=== PATIENT | male | born 1945 | race Caucasian/White ===

== ENCOUNTER 2019-04-30 09:20 | Emergency (ER) | payer OTHER, MEDICARE, SELFPAY ==
[2019-04-30 09:21] VITALS: BP 161/93; PULSE 79; RESP 16; TEMP 36.6; BMI 22.4
--- NOTE | 2019-04-30 09:36 | ED.DCSUM_ITS ---
History of Present Illness Chief Complaint: Complaint Detail of Chief Complaint: Gross hematuria Informant: Patient, Significant Other Onset: Month(s) Context: Sudden Onset Timing: Intermittent Quality: Red blood Location: Current Severity: - - Unknown Maximum Severity: Severe Worsened by: History of enlarged prostate Relieved by: Nothing Associated Symptoms: No new symptoms Narrative: Patient is an elderly male who presents because of gross hematuria. He states he had more blood than normal. Has had intermittent gross hematuria. Last time he urinated initially it was straw-colored and then became bright red blood. He does have right lower quadrant pain which he has had since 2008. At that time he had resection of his colon. 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 He denies dark-colored urine. He denies discoloration of his skin or eyes. He denies bruising easily. He denies frequency or dysuria. He does report orthostatic symptoms. He states he is had orthostatic symptoms for 2 to 3 years. There is no history of trauma. 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 Denies: Chills, Fever, Malaise, Subjective, Weight loss Cardiovascular: Denies: Chest pain, Palpitations Respiratory: Denies: Dyspnea, Cough, Dyspnea on exertion Gastrointestinal: Reports: Abdominal pain. Denies: Nausea, Vomiting, Diarrhea, Melena, Hematochezia Genitourinary: Reports: Hematuria. Denies: Dysuria, Frequency Musculoskeletal: Denies: Myalgias, Arthralgias, Neck pain, Back pain, Swelling, Extremity Pain, -, - Neurological: Denies: Headache, Weakness, Numbness Psych: Reports: Depression Hematologic: Denies: Easy bruising, Easy bleeding Physical Exam Vital Signs/Narrative: Vital Signs Temp Pulse Resp BP 04/30/19 09:21 97.8 F 79 16 161/93 H Inital Vital Signs reviewed: Yes General: Well nourished, Well developed, No Acute Distress Head: Normocephalic, Atraumatic Eyes: Perrl, EOMI. Negative for: Pale conjunctiva, Scleral icterus ENT: Moist mucous membranes, No rhinorrhea Neck: Supple, Nontender, No lymphadenopathy, No JVD Cardiovascular: Regular rate, Regular rhythm, No murmurs, Normal S1, Normal S2 Respiratory: No distress, CTA bilaterally, Chest nontender Abdomen: Soft, Nondistended, Normal bowel sounds, Tender - This to the right of the midline 3 cm below the umbilicus. There is no palpable defect. There is a well-healed midline infraumbilical incision noted. Back: Nontender, Normal Inspection. Negative for: CVA tenderness Extremities: Nontender, No edema Skin: Normal color, No rash Neurological: Alert, Oriented x3, Cranial nerves II-XII grossly intact, Normal Strength, Normal Sensation Psychological: Normal affect, Normal Mood Diagnostic/Tx/Re-eval Laboratory Results 04/30/19 04/30/19 04/30/19 09:40 09:40 10:56 WBC 12.6 H RBC 4.53 L Hgb 14.2 Hct 42.1 MCV 92.9 MCH 31.3 MCHC 33.7 RDW Std Deviation 42.5 RDW Coeff of Gretel 12.3 Plt Count 187 MPV 9.4 Immature Gran % (Auto) 0.400 Neut % (Auto) 85.8 H Lymph % (Auto) 6.4 L [place] % (Auto) 6.3 Eos % (Auto) 0.9 Baso % (Auto) 0.2 Absolute Neuts (auto) 10.8 H Absolute Lymphs (auto) 0.81 L Nucleated RBC % 0 Sodium 142 Potassium 3.5 Chloride 108 H Carbon Dioxide 29.0 Anion Gap 5 BUN 19 H Creatinine 1.75 H Estim Creat Clear Calc 39.80 Est GFR (MDRD) Af Amer 49 L Est GFR (MDRD) Non-Af 41 L BUN/Creatinine Ratio 10.9 Glucose 105 Calcium 9.1 Total Bilirubin 0.70 AST 23 ALT 22 Alkaline Phosphatase 79 Total Protein 6.5 Albumin 3.7 Globulin 2.8 Albumin/Globulin Ratio 1.3 Urine Color Yellow Urine Clarity Clear Urine pH 6.0 Ur Specific [place] 1.015 Urine Protein Negative Urine Glucose (UA) Normal Urine Ketones Negative Urine Occult Blood 250 H Urine Nitrite Negative Urine Bilirubin Negative Urine Urobilinogen Normal Ur Leukocyte Esterase Negative Urine RBC 25-50 SEEN Urine WBC 0 SEEN Ur Squamous Epith Cells 0-5 SEEN Urine Bacteria 1+ Urine Mucus 0 SEEN White count is slightly elevated which is a nonspecific marker. Creatinine is 1.75. There are no old levels for comparison. Urine reveals microscopic hematuria. There is 1+ bacteria noted. Macro was negative for leukoesterase and nitrites. Will send culture. Will not treat. - Medical Decision Making UA was obtained to assess for evidence of infection. CBC was obtained to assess H&H and white count. Comprehensive metabolic panel was obtained since there is history of metastatic cancer to the liver to assess his liver enzymes and bilirubin. With history of short gut syndrome need to assess for hypokalemia. ED Disposition - Plan for ED Patient: Disposition: Home or Assisted Living Diagnosis: Hematuria, Renal insufficiency, Bacteria in urine Instructions: Hematuria, Renal Insufficiency Referrals: [facility] [Other] - 3-5 Days
[2019-04-30 09:51] LABS: Absolute Lymphocyte Count 0.81 X10^3/uL (0.83-4.51); Absolute Neutrophil Count 10.8 X10^3/uL (2.0-7.7); Basophil# 0.03 X10^3/uL; Basophil% 0.2 % (0-1); Eosinophil# 0.11 X10^3/uL; Eosinophils% 0.9 % (0-5); Hematocrit 42.1 % (40-54); Hemoglobin 14.2 g/dL (13.0-16.5); Lymphocyte # 0.81 X10^3/ul (4.0); Lymphocyte % 6.4 % (19-41); Mean Corp Hgb Conc 33.7 g/dL (32-36); Mean Corpuscular Hgb 31.3 pg (27.0-32.0); Mean Corpuscular Volume 92.9 fL (80-94); Mean Platelet Vol. 9.4 fl (6.2-12.0); Monocyte# 0.79 X10^3/uL; Monocyte% 6.3 % (0-10); NRBC Flagged by Analyzer 0 % (0-5); Neutrophil # 10.81 X10^3/uL (2.7-7.7); Neutrophil % 85.8 % (47-70); Platelet Count 187 K/mm3 (150-450); RBC Distribution Width CV 12.3 % (11.6-14.6); RBC Distribution Width SD 42.5 fl (35.1-43.9); Red Blood Count 4.53 M/mm3 (4.6-6.2); White Blood Count 12.6 K/mm3 (4.4-11.0)
[2019-04-30 10:04] LABS: ALB/GLOB Ratio 1.3 RATIO (0.9-2.4); AST(SGOT) 23 U/L (15-37); Alanine Aminotransfer ALT/SGPT 22 U/L (16-61); Albumin, Serum 3.7 g/dL (3.2-5.0); Alkaline Phosphatase 79 U/L (45-117); Anion Gap 5 (5-15); BUN 19 mg/dL (7-18); BUN/Creat Ratio 10.9 RATIO (10-20); Calcium,Total 9.1 mg/dL (8.5-10.1); Chloride 108 mmol/L (98-107); Creatinine, Serum 1.75 mg/dL (0.70-1.30); EST Glomerular Filtration Rate 41 mL/min (>60); Est Glom Filt Rate - Afr Amer 49 mL/min (>60); Globulin 2.8 g/dL (2.2-4.2); Glucose 105 mg/dL (74-106); Potassium 3.5 mmol/L (3.5-5.1); Protein, Total 6.5 g/dL (6.4-8.2); Sodium Level 142 mmol/L (136-145)
[2019-04-30 11:06] LABS: Mucous, Urine 0 SEEN /hpf (<or=2+); White Blood Cells 0 SEEN /hpf (0-5)
[2019-04-30 11:21] LABS: Color, Urine Yellow (Yellow); Glucose, Dipstick Normal (Normal); Ketone-Dipstick Negative (Negative); Leukocyte Esterase-Dipstick Negative /ul (Negative); Nitrite-Dipstick Negative (Negative); Occult Blood-Urine 250 /ul (Negative); Protein-Dipstick Negative (Negative); Specific Gravity, Urine 1.015 (1.002-1.030); Urine Bilirubin Dipstick Negative (Negative); Urine Clarity Clear (Clear); Urine Urobilinogen Normal (Normal)
[2019-04-30 11:27] LABS: Red Blood Cells-Urine 25-50 SEEN /hpf (0-5); Squamous Epithelial Cells - UA 0-5 SEEN /hpf (0-5)
[2019-04-30 11:28] LABS: Bacteria 1+ /hpf (None Seen)
[2019-04-30 12:04] VITALS: BP 171/83; PULSE 54
[2019-04-30 13:06] VITALS: BP 133/59; PULSE 62; RESP 15; O2SAT 97
== END 2019-04-30 13:07 | disposition home or self-care (01) ==
PROVIDERS: Emergency Provider Emergency Medicine
DX: R82.71 Bacteriuria (principal); R31.29 Other microscopic hematuria; N28.9 Disorder of kidney and ureter, unspecified; I10 Essential (primary) hypertension; F32.9 Major depressive disorder, single episode, unspecified; Z85.038 Personal history of other malignant neoplasm of large intestine; Z85.05 Personal history of malignant neoplasm of liver; Z90.49 Acquired absence of other specified parts of digestive tract; Z79.899 Other long term (current) drug therapy
CPT/HCPCS: 36592; 80053; 81001; 85025; 87086; 99282; A4216

== ENCOUNTER 2020-05-17 09:11 | Emergency (ER) | payer OTHER, SELFPAY ==
[2020-05-17 09:11] VITALS: BP 221/90; O2SAT 98
[2020-05-17 09:13] VITALS: PULSE 48; RESP 16; TEMP 35.7; O2SAT 99; BMI 22.6
--- NOTE | 2020-05-17 09:17 | ED.VIS.GEN ---
History of Present Illness Chief Complaint: Hypertension Informant: Patient Narrative: 75-year-old male presenting for evaluation of elevated blood pressure. He states it was 220/90 at home. He states he feels well and this was incidentally noted. He states that he gets [facility] and they have been changing his medications for hypertension, but he cannot remember the name of his medications. He did not present with a medicine list. Patient denies headache, dizziness, chest pain, shortness of breath. He states he has chronic diarrhea. He does have history of metastatic carcinoid tumor,, hypertension, depression, renal insufficiency. - Past Medical History (1) Abdominal carcinomatosis Status: Chronic (2) Benign essential HTN Status: Chronic (3) Carcinoid syndrome Status: Chronic (4) Depression Status: Chronic Past Medical History - Allergies and Home Meds Allergies/Adverse Reactions: Allergies amoxicillin Allergy (Verified 05/17/20 09:11) Rash codeine Adverse Reaction (Verified 05/17/20 09:11) Nausea Primary Care Physician: [facility] [Other] Prior records reviewed: Yes Surgical History: cholecystectomy Lives: Spouse/ Significant Other Smoking Status: Former smoker Alcohol: None Drugs: None Review of Systems General: Denies: Chills, Fever, Sweats Eyes: Denies: Visual changes - bilaterally, Diplopia ENT: Denies: Rhinorrhea, Sore throat Cardiovascular: Denies: Chest pain, Palpitations Respiratory: Denies: Dyspnea, Cough, Dyspnea on exertion Gastrointestinal: Denies: Abdominal pain, Nausea, Vomiting, Diarrhea, Melena, Hematochezia Genitourinary: Denies: Dysuria, Hematuria, Frequency Musculoskeletal: Denies: Back pain, Extremity Pain Skin: Denies: Rash, Wounds Neurological: Denies: Headache, Weakness, Numbness Psych: Denies: Depression, Anxiety, Suicidal thoughts, Suicidal ideations, -, - Endocrine: Denies: Polyuria, Polydipsia, Heat intolerance, Cold intolerance, -, - Physical Exam Vital Signs/Narrative: Vital Signs Temp Pulse Resp Pulse Ox 05/17/20 09:13 96.3 F L 48 L 16 99 Inital Vital Signs reviewed: Yes General: Well nourished, No Acute Distress Head: Normocephalic, Atraumatic Eyes: Perrl, EOMI ENT: Moist mucous membranes, No rhinorrhea Cardiovascular: Regular rate, Regular rhythm Abdomen: Soft, Nontender, Nondistended Extremities: Nontender, No edema Skin: Normal color, No rash. Negative for: Cyanosis, Diaphoresis Neurological: Alert, Oriented x3, Cranial nerves II-XII grossly intact Psychological: Normal affect, Normal Mood Diagnostic/Tx/Re-eval - Medical Decision Making 75-year-old male presenting with asymptomatic hypertension. He states that he had his medication changed but was unable to tell me his dosing or the medication. Nursing staff was able to get his medicine list from his and it looks like he is on lisinopril 40 mg daily. This is increased from his previous visit and April from 30 mg daily. Patient states he took his blood pressure medicine 30 minutes prior to arrival. Given that this is a 24 medicine I do not expect that it would have change his blood pressure in 30 minutes. Since he is asymptomatic I recommended that he call his primary care provider to have his medication adjusted as needed. He was amenable to this plan. Patient is stable for discharge at this time. Impression: 1.Hypertension?out of control ED Disposition - Plan for ED Patient: Disposition: Home or Assisted Living Instructions: ED Hypertension, Established Referrals: [facility] [Other]
[2020-05-17 10:07] VITALS: BP 191/101; PULSE 54; RESP 18; O2SAT 98
== END 2020-05-17 10:07 | disposition home or self-care (01) ==
LOC: ED 10:01
PROVIDERS: Emergency Provider Student in an Organized Health Care Education/Training Program
DX: I10 Essential (primary) hypertension (principal); F32.9 Major depressive disorder, single episode, unspecified; Z79.899 Other long term (current) drug therapy; Z87.891 Personal history of nicotine dependence
CPT/HCPCS: 99282

== ENCOUNTER 2020-05-20 20:35 | Emergency (ER) | payer OTHER, SELFPAY ==
[2020-05-20 20:39] VITALS: BP 110/70; PULSE 58; RESP 12; TEMP 35.9; O2SAT 98; BMI 23.8
--- NOTE | 2020-05-20 21:02 | EKG12_ITS ---
Test Reason : SYNCOPE Blood Pressure : / mmHG Vent. Rate : 055 BPM Atrial Rate : 055 BPM P-R Int : 200 ms QRS Dur : 102 ms QT Int : 424 ms P-R-T Axes : 004 -32 093 degrees QTc Int : 405 ms Sinus bradycardia Left axis deviation Nonspecific T wave abnormality Abnormal ECG Confirmed by RUSS PIMENTEL, BLANCA ([id number]), science editor KAYLA CULVER ([id number]) on 05/25/2020 6:44:18 AM Referred By: JORGE Confirmed By:BLANCA SOLANO MD
[2020-05-20 21:14] LABS: Absolute Lymphocyte Count 0.93 X10^3/uL (0.83-4.51); Absolute Neutrophil Count 5.8 X10^3/uL (2.0-7.7); Basophil# 0.04 X10^3/uL; Basophil% 0.6 % (0-1); Eosinophil# 0.11 X10^3/uL; Eosinophils% 1.5 % (0-5); Hematocrit 40.9 % (40-54); Hemoglobin 13.5 g/dL (13.0-16.5); Lymphocyte # 0.93 X10^3/ul (4.0); Lymphocyte % 12.9 % (19-41); Mean Corpuscular Hgb 31.4 pg (27.0-32.0); Mean Corpuscular Volume 95.1 fL (80-94); Monocyte% 4.2 % (0-10); NRBC Flagged by Analyzer 0 % (0-5); Neutrophil # 5.79 X10^3/uL (2.7-7.7); Neutrophil % 80.4 % (47-70); Platelet Count 174 K/mm3 (150-450); RBC Distribution Width CV 12.8 % (11.6-14.6); RBC Distribution Width SD 44.6 fl (35.1-43.9); White Blood Count 7.2 K/mm3 (4.4-11.0)
--- NOTE | 2020-05-20 21:17 | ED.DCSUM_ITS ---
History of Present Illness Chief Complaint: Syncope Informant: Patient Narrative: Patient is a 75-year-old male with a past medical history of metastatic carcinoid tumors, hypertension who presents to emergency department for low blood pressure readings. He states that he is felt lightheaded all day. His initial blood pressure was over 220 last night. He states his blood pressure typically fluctuates. He does check this multiple times per day regularly. He noticed that it was dropping into the low 100s. He states while sitting he does not have any symptoms but whenever he gets up and moves around he does get lightheaded like he could pass out. Apparently patient had an unresponsive episode for EMS. Patient denies any syncopal episodes. He has no associated chest pain, shortness of breath or heart palpitations through any of this. He was seen in the emergency department for hypertension recently. He did have a medication adjustment with increase in his blood pressure medications although he is not sure what they changed. He denies any leg swelling or calf pain. No history of heart attacks. No lung issues. No history of DVT/PE. He states he does get normal saline infusions 3 times per week due to dehydration. He has been getting this regularly. He denies any vomiting or diarrhea. No urinary symptoms. No abdominal pain. Past Medical History - Allergies and Home Meds Allergies/Adverse Reactions: Allergies amoxicillin Allergy (Verified 05/20/20 20:35) Rash codeine Adverse Reaction (Verified 05/20/20 20:35) Nausea Primary Care Physician: [place] [Primary Care Provider] - 1 Day Prior records reviewed: Yes Surgical History: cholecystectomy Smoking Status: Current some day smoker Review of Systems All systems negative except as indicated General: Denies: Chills, Fever, Sweats Eyes: Denies: Visual changes - bilaterally, Diplopia ENT: Denies: Rhinorrhea, Sore throat Cardiovascular: Denies: Chest pain, Palpitations Respiratory: Denies: Dyspnea, Cough, Dyspnea on exertion Gastrointestinal: Denies: Abdominal pain, Nausea, Vomiting, Diarrhea, Melena, Hematochezia Genitourinary: Denies: Dysuria, Hematuria, Frequency Musculoskeletal: Denies: Back pain, Extremity Pain Skin: Denies: Rash, Wounds Neurological: Reports: - - Lightheadedness. Denies: Headache, Weakness, Numbness Physical Exam Vital Signs/Narrative: Vital Signs Temp Pulse Resp BP Pulse Ox 05/20/20 20:39 96.7 F L 58 L 12 110/70 98 General: Well nourished, Well developed, No Acute Distress Head: Normocephalic, Atraumatic Eyes: Perrl, EOMI ENT: Moist mucous membranes, No rhinorrhea Neck: Supple, Nontender Cardiovascular: Regular rate, Regular rhythm, No murmurs Respiratory: No distress, CTA bilaterally, Chest nontender Abdomen: Soft, Nontender, Nondistended, Normal bowel sounds Back: Nontender, Normal Inspection Extremities: Nontender, No edema Skin: Normal color, No rash Neurological: Alert, Oriented x3, Cranial nerves II-XII grossly intact, Normal Strength, Normal Sensation Psychological: Normal affect, Normal Mood Diagnostic/Tx/Re-eval Chest X-Ray - ED: 1 View - Single view portable chest x-ray interpreted by myself. No evidence of consolidation. No pleural effusions. Calcified nodule in the right lower lobe. Normal cardiac silhouette. Normal mediastinum. Agree with radiologist interpretation. - EKG Initial EKG Interpretation: - - Rate of 55 bpm in sinus bradycardia. Normal intervals. Left axis deviation. No significant ST elevations or depressions. No T wave abnormalities. - Medical Decision Making Patient presents to the emergency department for low blood pressure readings and lightheadedness. Upon arrival to the emergency department his blood pressure is 110/70. He is borderline bradycardic but satting well on room air. While laying in the bed he has no symptoms whatsoever. Will check basic lab work including EKG and chest x-ray. Will do orthostatic vital signs start some IV fluids. His symptoms sound related to his recent blood pressure medication adjustment. Patient did get IV fluids after his orthostatic vital signs were positive. He was very symptomatic initially. After the bolus of liter of saline completed he did ambulate around the emergency department no repeat symptoms and is feeling much better. Patient now telling me that he did actually pass out. I did offer him hospitalization given the fact he had a syncopal episode which does correlate with the EMS story. He states that he does not want to stay in the hospital due to coronavirus at this time. Since this is most likely secondary to medications I believe that this is an acceptable plan. Low concern for ACS as his troponin was negative. No concern for acute heart failure with the clear chest x-ray and no peripheral edema. Low concern for PE as he has no risk factors for this. He is to call his PCP in the morning and not to take his new medications which were prescribed for his blood pressure. He is agreeable with this plan. If he develops any repeat symptoms he is to return to the emergency department immediately. He is discharged home in stable condition. All questions were answered. ED Disposition - Plan for ED Patient: Disposition: Home or Assisted Living Diagnosis: Orthostatic hypotension Instructions: ED Hypotension, Orthostatic [facility]errals: [facility] [Primary Care Provider[facility] - 1 Day
[2020-05-20 21:20] VITALS: BP 107/64; BP 78/49; BP 91/54; PULSE 59; PULSE 63; PULSE 86
[2020-05-20] MEDS: 0.9% Normal Saline 1,000 ML 999 ML IV (21:26)
[2020-05-20 21:36] LABS: Anion Gap 5 (5-15); BUN 22 mg/dL (7-18); BUN/Creat Ratio 11.7 RATIO (10-20); Calcium,Total 8.8 mg/dL (8.5-10.1); Chloride 111 mmol/L (98-107); Creatinine, Serum 1.88 mg/dL (0.70-1.30); EST Glomerular Filtration Rate 37 mL/min (>60); Est Glom Filt Rate - Afr Amer 45 mL/min (>60); Estimated Creatinine Clearance 37.26 ml/min; Glucose 187 mg/dL (74-106); Potassium 3.6 mmol/L (3.5-5.1); Sodium Level 145 mmol/L (136-145)
--- NOTE | 2020-05-20 21:49 | RAD_ITS ---
STUDY: X-RAY CHEST REASON FOR EXAM: Male, 75 years old. syncope, hypotension at home. TECHNIQUE: AP portable COMPARISON: None. FINDINGS: The lungs are clear and expanded. There is a small calcified granuloma in the right lower lobe There is no demonstrated pleural abnormality. Normal size heart. Normal mediastinum and tracey. Normal visualized pulmonary arteries. Normal visualized aortic arch and descending thoracic aorta. Dorsal spine and shoulders demonstrate mild degenerative change.. Normal visualized ribs, and clavicles.. There is no demonstrated abnormality of the visualized soft tissue structures of the upper abdomen. RAD/Chest 1 View (Portable) IMPRESSION: Calcified granuloma in right lower lobe. No acute cardiopulmonary pathology Electronically Signed: Harjinder Mathew MD at 22:00 EST , Service support ,
[2020-05-20 22:21] VITALS: BP 122/65; PULSE 61; RESP 14; O2SAT 93
[2020-05-20 23:00] VITALS: BP 144/78; PULSE 60; RESP 13; O2SAT 98
[2020-05-21 00:06] VITALS: BP 141/73; PULSE 78; RESP 18; O2SAT 96
== END 2020-05-21 00:40 | disposition home or self-care (01) ==
PROVIDERS: Emergency Provider Emergency Medicine
DX: I95.1 Orthostatic hypotension (principal); I10 Essential (primary) hypertension; F17.200 Nicotine dependence, unspecified, uncomplicated
CPT/HCPCS: 71045; 80048; 84484; 85025; 93005; 96360; 96361; 99284; J7030

== ENCOUNTER 2020-09-18 10:53 | Inpatient (IN) | payer OTHER, MEDICARE, SELFPAY ==
[2020-09-18] VITALS (13 sets, daily range): BP systolic 100–150; BP diastolic 60–98; PULSE 42–121; RESP 13–28; TEMP 36.2–36.9; O2SAT 86–100; BMI 23.9; BMI 20.9
--- NOTE | 2020-09-18 11:08 | EKG12_ITS ---
Test Reason : SOB Blood Pressure : / mmHG Vent. Rate : 051 BPM Atrial Rate : 051 BPM P-R Int : 190 ms QRS Dur : 102 ms QT Int : 456 ms P-R-T Axes : 014 -33 073 degrees QTc Int : 420 ms Sinus bradycardia Left axis deviation Abnormal ECG Confirmed by RUSS PIMENTEL, BLANCA ([id number]), editorial director DEANNA TESFAYE ([id number]) on 09/20/2020 9:13:55 AM Referred By: SHAWNA Confirmed By:BLANCA SOLANO MD
--- NOTE | 2020-09-18 11:10 | EDS_ITS ---
HPI History of Present Illness Chief Complaint: Confusion Informant: patient Onset/Context/Timing Onset: Days Timing: Continuous Current Severity: Mild Maximum Severity: Mild Narrative Narrative: lives at home with his . hospitalized earlier today with COVID-19.75-year-old male Reportedly he was hypoxic at home and confused. He d enies any headache or head trauma. He states that he has a history of stage IV cancer. He denies any vomiting or diarrhea. States he has had fever, cough and shortness of breath the last 3 days. Denies any hemoptysis. Prior similar symptoms: No Recent Illness/Hospitalization: No PFSH PFSH Home Medications Atropine Sulfate 0.025 mg PO 4X/DAY 04/30/19 [History Last Taken Unknown] Sandostatin 30 mg IM QMONTH 04/30/19 [History Last Taken Unknown] cholecalciferol (vitamin D3) 3 tab PO DAILY 04/30/19 [History Last Taken Unknown] diphenoxylate-atropine 2.5 mg PO 4X/DAY 04/30/19 [History Last Taken Unknown] fluoxetine 40 mg PO DAILY 04/30/19 [History Last Taken Unknown] lisinopril 40 mg PO DAILY 04/30/19 [History Last Taken Unknown] oxycodone 3 tab PO PRN PRN 04/30/19 [History Last Taken Unknown] oxycodone 20 mg PO BID 04/30/19 [History Last Taken Unknown] doxazosin 4 mg PO DAILY 05/17/20 [History Last Taken 05/17/20] loperamide 4 mg PO BID 05/17/20 [History Last Taken Unknown] Allergy/AdvReac Type Severity Reaction Status Date / Time amoxicillin Allergy Rash Verified 05/20/20 20:35 codeine AdvReac Nausea Verified 05/20/20 20:35 Social History Smoking Status: Current some day smoker ROS ROS ED ROS Narrative Cough shortness of breath and subjective fever. Review of Systems ROS Unobtainable: Denies due to encephalopathy Constitutional Constitutional ED: Reports fever(s); Denies sweats Eyes Eyes: Denies change in vision ENT ENT ED: Denies ear pain or sore throat Cardiovascular Cardiovascular: Denies chest pain Respiratory/Chest Respiratory/Chest: Reports cough and dyspnea; Denies sputum Gastrointestinal Gastrointestinal: Denies abdominal pain, constipation, diarrhea, melena, nausea or vomiting Genitourinary Genitourinary ED: Denies dysuria Musculoskeletal Musculoskeletal: Denies myalgias Integumentary Denies rash Neurologic Neurologic: Denies headache(s) Psychiatric Psychiatric: Denies depression Endocrine Endocrinology: Denies polyuria Allergic/Immunologic Allergic/Immunologic ED: Denies urticaria EXAM Physical Exam Narrative Exam Narrative: Older male no acute distress vital signs stable except for a pulse ox of 86% obviously hypoxic. Is mildly confused. He does not look septic. HEENT exam dry mucous memories. No facial droop or trauma. Lungs clear to auscultation. Heart regular rhythm. Abdomen soft nontender. Moving all 4 extremities. Normal motor strength. Neurologically is awake. He knew the day was Saturday he did not know the he thought it was January he did know the year was 2020. He knew he was in the hospital. Const Vital Signs: 09/18/20 10:53 09/18/20 11:01 Temperature 97.9 F 97.9 F Temperature Source Temporal Temporal Pulse Rate 54 L 54 L Respiratory Rate 28 H 28 H Blood Pressure 112/69 115/65 Blood Pressure Mean 83 81 Pulse Ox 86 91 Oxygen Delivery Method Room Air Nasal Cannula Oxygen Flow Rate (L/min) 2 Positive well nourished and well developed General Appearance ED: well developed HEENT Reports dry mucous membranes Negative for trauma or tenderness Mouth ED: Yes dry mucous membranes Mouth: dry mucous membranes Eyes PERRL and EOMs intact bilaterally Neck no lymphadenopathy, supple and no JVD General: Negative for tenderness Chest Wall inspection of chest normal Resp normal respiratory effort and clear to auscultation bilaterally Cardio regular rate and regular rhythm GI normal to inspection, nondistended, normoactive bowel sounds, non-tender and non-distended Auscultation: normoactive bowel sounds Palpation: soft Back/Spine no CVA tenderness Extremity normal to inspection General Extremety ED: Negative for edema or tenderness General Extremity: Negative for edema Neuro Neuro Narrative: New day, year and place but not month. Sensorium / Orientation: alert Motor Exam: strength 5/5 throughout Psych mental status grossly normal Skin no rashes or lesions noted MDM MDM MDM Narrative Medical decision making narrative: Elderly male hypoxic with a Covid positive admitted earlier today. I suspect he will also be Covid positive. Will undergo screening labs and a chest x-ray. Lab Data Attestation: I reviewed the patient's lab results. Lab results narrative: Patient's labs CBC shows a white count of 4 hemoglobin of 12 based unremarkable D-dimer is elevated 0.88 however his renal function is too poor with a creatinine of 2.65 to do a CTA of the chest. Electrolytes basically otherwise are unremarkable gap of 6. He does have renal sufficiency with a BUN of 42 and creatinine 2.65. That is worse than his normal. LFTs are unremarkable. Chest x-ray chronic changes no acute process portable 1 view interpreted by myself and radiologist. No infiltrate seen. Lactic acid 1.0. Covid is positive. Hospitalist on page for admission. Labs: Laboratory Results - last 24 hr 09/18/20 09/18/20 09/18/20 11:35 11:35 11:35 WBC 4.9 RBC 4.04 L Hgb 12.5 L Hct 37.0 L MCV 91.6 MCH 30.9 MCHC 33.8 RDW Std Deviation 45.9 H RDW Coeff of Gretel 13.4 Plt Count 94 L MPV 11.3 Immature Gran % (Auto) 0.400 Neut % (Auto) 84.3 H Lymph % (Auto) 9.2 L [place] % (Auto) 6.1 Eos % (Auto) 0.0 Baso % (Auto) 0.0 Absolute Neuts (auto) 4.1 Absolute Lymphs (auto) 0.45 L Nucleated RBC % 0 Platelet Estimate SLT DEC D-Dimer Quant (PE/DVT) 0.88 H* Sodium 136 Potassium 3.6 Chloride 100 Carbon Dioxide 30.0 Anion Gap 6 BUN 42 H Creatinine 2.65 H Estim Creat Clear Calc 24.09 Est GFR (MDRD) Af Amer 30 L Est GFR (MDRD) Non-Af 25 L BUN/Creatinine Ratio 15.8 Glucose 97 Lactic Acid Calcium 8.3 L Total Bilirubin 0.60 AST 44 H ALT 26 Alkaline Phosphatase 50 Total Protein 6.1 L Albumin 3.4 Globulin 2.7 Albumin/Globulin Ratio 1.3 09/18/20 11:35 WBC RBC Hgb Hct MCV MCH MCHC RDW Std Deviation RDW Coeff of Gretel Plt Count MPV Immature Gran % (Auto) Neut % (Auto) Lymph % (Auto) [place] % (Auto) Eos % (Auto) Baso % (Auto) Absolute Neuts (auto) Absolute Lymphs (auto) Nucleated RBC % Platelet Estimate D-Dimer Quant (PE/DVT) Sodium Potassium Chloride Carbon Dioxide Anion Gap BUN Creatinine Estim Creat Clear Calc Est GFR (MDRD) Af Amer Est GFR (MDRD) Non-Af BUN/Creatinine Ratio Glucose Lactic Acid 1.0 Calcium Total Bilirubin AST ALT Alkaline Phosphatase Total Protein Albumin Globulin Albumin/Globulin Ratio Radiography Chest X-Ray - ED: 1 View, Read by ED Physician, Read by Radiologist, Normal, Heart, Lungs, Mediastinum, Bony Structures, No Acute Disease and Chronic Changes Diagnostic Testing: Radiology Impression Chest X-Ray 09/18/20 12:00 IMPRESSION: No acute pulmonary abnormality. Left-sided PICC line in good position. at 1225 Reported and signed by: Pillo Porter MD Electronically Signed: Pillo Porter MD at 12:24 EDT Tel , Service support , EKG Initial EKG: Attestation: I personally reviewed and interpreted this EKG as follows: Interpretation: Sinus Rhythm, No Acute Injury Pattern and Sinus Bradycardia Comments: Sinus bradycardia rate of 51 with no acute signs of GA nor ischemia. Prior EKG tracings: available for review Prior: Unchanged Discharge Plan Dx/Rx/DC Orders Clinical Impression: Acute COVID-19, Acute respiratory failure with hypoxia, Acute alteration in mental status, Acute kidney injury Disposition Disposition: Acute Care [facility]
[2020-09-18 11:54] LABS: Absolute Lymphocyte Count 0.45 X10^3/uL (0.83-4.51); Absolute Neutrophil Count 4.1 X10^3/uL (2.0-7.7); Hemoglobin 12.5 g/dL (13.0-16.5); Lymphocyte # 0.45 X10^3/ul (0.83-4.51); Lymphocyte % 9.2 % (19-41); Mean Corp Hgb Conc 33.8 g/dL (32-36); Mean Corpuscular Hgb 30.9 pg (27.0-32.0); Mean Corpuscular Volume 91.6 fL (80-94); Mean Platelet Vol. 11.3 fl (6.2-12.0); Monocyte% 6.1 % (0-10); NRBC Flagged by Analyzer 0 % (0-5); Neutrophil # 4.14 X10^3/uL (2.7-7.7); Neutrophil % 84.3 % (47-70); POSITIVE COUNT YES; POSITIVE DIFFERENTIAL YES; Platelet Count 94 K/mm3 (150-450); RBC Distribution Width CV 13.4 % (11.6-14.6); RBC Distribution Width SD 45.9 fl (35.1-43.9); Red Blood Count 4.04 M/mm3 (4.6-6.2); White Blood Count 4.9 K/mm3 (4.4-11.0)
[2020-09-18 11:56] LABS: Differential Indicated SCAN CRITERIA MET
--- NOTE | 2020-09-18 12:00 | RAD_ITS ---
EXAM: XR CHEST, 1 VIEW : 1945 CLINICAL INDICATION: cough, covid positive TECHNIQUE: Frontal view of the chest. This report was created using [email or web address] report generation technology. COMPARISON: 05/20/2020 FINDINGS: LUNGS AND PLEURAL SPACES: Unremarkable. No consolidation or edema. No pneumothorax. No effusion. HEART: Unremarkable. Cardiac silhouette not enlarged. MEDIASTINUM: Central airways and mediastinal contour are unremarkable. BONES/JOINTS: Unremarkable. SOFT TISSUES: Unremarkable. TUBES, LINES AND DEVICES: Left-sided PICC line is in place with the distal tip overlying the superior vena cava. RAD/Chest 1 View (Portable) IMPRESSION: No acute pulmonary abnormality. Left-sided PICC line in good position. at 1225 Reported and signed by: Pillo Porter MD Electronically Signed: Pillo Porter MD at 12:24 EDT Tel , Service support ,
[2020-09-18 12:14] LABS: D-Dimer Quantitative (DVT/PE) 0.88 FEU/ug/m (0.27-0.49)
[2020-09-18 12:17] LABS: Platelet Estimate SLT DEC (ADEQ)
[2020-09-18 12:19] LABS: ALB/GLOB Ratio 1.3 RATIO (0.9-2.4); AST(SGOT) 44 U/L (15-37); Alanine Aminotransfer ALT/SGPT 26 U/L (16-61); Albumin, Serum 3.4 g/dL (3.2-5.0); Alkaline Phosphatase 50 U/L (45-117); Anion Gap 6 (5-15); BUN 42 mg/dL (7-18); BUN/Creat Ratio 15.8 RATIO (10-20); Calcium,Total 8.3 mg/dL (8.5-10.1); Chloride 100 mmol/L (98-107); Creatinine, Serum 2.65 mg/dL (0.70-1.30); EST Glomerular Filtration Rate 25 mL/min (>60); Est Glom Filt Rate - Afr Amer 30 mL/min (>60); Estimated Creatinine Clearance 24.09 ml/min; Globulin 2.7 g/dL (2.2-4.2); Glucose 97 mg/dL (74-106); Potassium 3.6 mmol/L (3.5-5.1); Protein, Total 6.1 g/dL (6.4-8.2); Sodium Level 136 mmol/L (136-145)
--- NOTE | 2020-09-18 13:03 | NURSING ---
Addendum entered by Clara Rapp 09/18/20 13:04: DR KELLY Original Note: ICU COVID, HYPOXIA, CONFUSION
[2020-09-18] MEDS: 0.9% Normal Saline 1,000 ML 125 ML IV (13:09)
[2020-09-18] MEDS: dexAMETHasone 10 MG/ML Vial IV (13:09)
[2020-09-18 17:06] LABS: Magnesium 2.2 mg/dL (1.6-2.6)
--- NOTE | 2020-09-18 17:57 | PCM.HP.STD ---
HPI - General General Date of Admission: 09/18/20 Chief Complaint: Confusion, shortness of breath HPI Narrative ITZEL MORA, is a 75 M who presents confusion and shortness of breath. Patient started having symptoms of COVID-19 around September 07 with fever, chills, shortness of breath. His is also sick with COVID-19. He drove his to the hospital this morning. He did not want to be evaluated in the hospital. He drove himself back. He was confused and hypoxic. His oxygen saturation was around the 80s. He admits to feeling dizzy. When the EMS got there, he was saturating around 90% on 15 L of oxygen. He was managed in route with the nonrebreather mask. Patient admits to diarrhea but he has short bowel syndrome. He states that it started today. Denies any chest pain or palpitations. [facility] Medical History Cancer Former smoker Hypertension Stroke/cerebrovascular accident Home Medications Atropine Sulfate 0.025 mg PO 4X/DAY 04/30/19 [History Last Taken Unknown] Sandostatin 30 mg IM QMONTH 04/30/19 [History Last Taken Unknown] cholecalciferol (vitamin D3) 3 tab PO DAILY 04/30/19 [History Last Taken Unknown] diphenoxylate-atropine 2.5 mg PO 4X/DAY 04/30/19 [History Last Taken Unknown] fluoxetine 40 mg PO DAILY 04/30/19 [History Last Taken Unknown] lisinopril 40 mg PO DAILY 04/30/19 [History Last Taken Unknown] oxycodone 3 tab PO PRN PRN 04/30/19 [History Last Taken Unknown] oxycodone 20 mg PO BID 04/30/19 [History Last Taken Unknown] doxazosin 4 mg PO DAILY 05/17/20 [History Last Taken 05/17/20] loperamide 4 mg PO BID 05/17/20 [History Last Taken Unknown] Allergy/AdvReac Type Severity Reaction Status Date / Time amoxicillin Allergy Rash Verified 05/20/20 20:35 codeine AdvReac Nausea Verified 05/20/20 20:35 no significant family history Surgical History (Updated 09/18/20 @ 18:[address] Deanne Dialy MD) History of appendectomy History of cholecystectomy S/P colectomy Social History Smoking Status: Current some day smoker ROS ROS Narrative Constitutional: Reports: Malaise, Weakness, Fatigue. Denies: Anorexia, Chills, Fever, Night Sweats, Weight Change Eyes: Denies: Blurred vision, Cataracts, Conjunctivae Inflammation, Pain, Redness, Vision Change HEENT: Denies: Difficulty Hearing, Difficulty Swallowing, Head Aches, Hearing Changes, Sinus Congestion, Sinus Drainage Cardiovascular: Admits to dizziness denies: Chest Pain, Orthopnea, Palpitations Respiratory: Denies: Cough, Shortness of breath at rest, Sputum production Gastrointestinal: Denies: Abdominal Pain, Nausea, Vomiting Genitourinary: Denies: Dysuria Musculoskeletal: Denies: Joint Pain, Joint stiffness, Joint swelling, Joint Tenderness Skin: Denies: Rash, Wounds Neurological: Denies: Numbness, Tingling, Focal weakness Vital Signs Vital Signs Vital Signs: 09/18/20 10:53 09/18/20 11:01 09/18/20 11:30 Temperature 97.9 F 97.9 F Temperature Source Temporal Temporal Pulse Rate 54 L 54 L 121 H Respiratory Rate 28 H 28 H 23 H Blood Pressure 112/69 115/65 120/96 H Blood Pressure Mean 83 81 104 Blood Pressure Source Blood Pressure Position Blood Pressure Location Pulse Ox 86 91 96 Oxygen Delivery Method Room Air Nasal Cannula Nasal Cannula Oxygen Flow Rate (L/min) 2 2 09/18/20 12:00 09/18/20 12:30 09/18/20 12:49 Temperature 98.4 F Temperature Source Oral Pulse Rate 118 H 114 H 51 L Respiratory Rate 21 H 17 14 Blood Pressure 127/98 H 150/94 H 100/60 Blood Pressure Mean 107 112 73 Blood Pressure Source Blood Pressure Position Blood Pressure Location Pulse Ox 95 95 97 Oxygen Delivery Method Nasal Cannula Nasal Cannula Room Air Oxygen Flow Rate (L/min) 2 2 09/18/20 12:58 09/18/20 13:00 09/18/20 13:51 Temperature 98.1 F 98.1 F Temperature Source Temporal Temporal Pulse Rate 49 L 62 Respiratory Rate 13 16 Blood Pressure 132/96 H 129/61 H Blood Pressure Mean 108 83 Blood Pressure Source Monitor Blood Pressure Position Semi-Fowlers Blood Pressure Location Right Arm Pulse Ox 97 96 99 Oxygen Delivery Method Nasal Cannula Nasal Cannula Room Air Oxygen Flow Rate (L/min) 2 2 09/18/20 14:08 Temperature Temperature Source Pulse Rate 51 L Respiratory Rate Blood Pressure Blood Pressure Mean Blood Pressure Source Blood Pressure Position Blood Pressure Location Pulse Ox Oxygen Delivery Method Oxygen Flow Rate (L/min) Physical Exam Narrative Physical exam: General: Alert, Oriented x3, Cooperative, appears unwell, on 2 L oxygen, Well developed HEENT: Atraumatic Oral: Dry mucosa Neck: Supple Lungs: Clear to auscultation Cardiovascular: HS I+II, regular, no murmurs Abdomen: Bowel Sounds Present, Soft, Non Tender Extremities: No edema Skin: No rashes, No breakdown Neurological: Grossly intact Psych/Mental Status: Appropriate Lab / Micro Data Result Diagrams: 09/18/20 11:35 09/18/20 11:35 Labs: Laboratory Results - last 24 hr 09/18/20 09/18/20 09/18/20 11:35 11:35 11:35 WBC 4.9 RBC 4.04 L Hgb 12.5 L Hct 37.0 L MCV 91.6 MCH 30.9 MCHC 33.8 RDW Std Deviation 45.9 H RDW Coeff of Gretel 13.4 Plt Count 94 L MPV 11.3 Immature Gran % (Auto) 0.400 Neut % (Auto) 84.3 H Lymph % (Auto) 9.2 L [place] % (Auto) 6.1 Eos % (Auto) 0.0 Baso % (Auto) 0.0 Absolute Neuts (auto) 4.1 Absolute Lymphs (auto) 0.45 L Nucleated RBC % 0 Platelet Estimate SLT DEC D-Dimer Quant (PE/DVT) 0.88 H* Sodium 136 Potassium 3.6 Chloride 100 Carbon Dioxide 30.0 Anion Gap 6 BUN 42 H Creatinine 2.65 H Estim Creat Clear Calc 24.09 Est GFR (MDRD) Af Amer 30 L Est GFR (MDRD) Non-Af 25 L BUN/Creatinine Ratio 15.8 Glucose 97 Lactic Acid Calcium 8.3 L Magnesium Total Bilirubin 0.60 AST 44 H ALT 26 Alkaline Phosphatase 50 Total Protein 6.1 L Albumin 3.4 Globulin 2.7 Albumin/Globulin Ratio 1.3 09/18/20 09/18/20 11:35 11:43 WBC RBC Hgb Hct MCV MCH MCHC RDW Std Deviation RDW Coeff of Gretel Plt Count MPV Immature Gran % (Auto) Neut % (Auto) Lymph % (Auto) [place] % (Auto) Eos % (Auto) Baso % (Auto) Absolute Neuts (auto) Absolute Lymphs (auto) Nucleated RBC % Platelet Estimate D-Dimer Quant (PE/DVT) Sodium Potassium Chloride Carbon Dioxide Anion Gap BUN Creatinine Estim Creat Clear Calc Est GFR (MDRD) Af Amer Est GFR (MDRD) Non-Af BUN/Creatinine Ratio Glucose Lactic Acid 1.0 Calcium Magnesium 2.2 Total Bilirubin AST ALT Alkaline Phosphatase Total Protein Albumin Globulin Albumin/Globulin Ratio Micro: Microbiology 09/18/20 11:43 SARS-CoV-2 Antigen (Rapid) - Final Interface Orders SARS-CoV-2 (COVID 19) Radiology Impression Chest X-Ray 09/18/20 12:00 IMPRESSION: No acute pulmonary abnormality. Left-sided PICC line in good position. at 1225 Reported and signed by: Pillo Porter MD Electronically Signed: Pillo Porter MD at 12:24 EDT Tel , Service support , Assessment & Plan Assessment/Plan (1) Acute metabolic encephalopathy: (2) Acute kidney injury: (3) Acute COVID-19: (4) Short bowel syndrome: (5) Abdominal carcinomatosis: (6) Carcinoid syndrome: (7) Benign essential HTN: PLAN: 1. Acute hypoxic respiratory failure secondary to acute COVID-19 infection Patient has improved and is currently on 2 L of oxygen, continue with breathing treatments, po steroids, encourage use of incentive spirometer. Wean off oxygen for SPO2 more than 94% 2. MAGGIE on CKD stage IIIa, prerenal likely secondary to COVID-19 infection patient's baseline creatinine is around 1.7-1.8 Admitted creatinine of 2.65 Hold home lisinopril Continue on IV fluids, repeat blood work in a.m. 3. Acute metabolic encephalopathy secondary to #1, appears improved 4. Elevated D-dimer, unable to do CTA of the chest to rule out acute PE We will continue on therapeutic Lovenox, pending future evaluation for acute PE 5. Rest of chronic medical conditions remained stable including hypertension, carcinoid syndrome, multiple metastatic carcinoid tumors, short bowel syndrome -continue on rest of home medications Visit Charges Inpatient E&M: 90769 Init Hosp L3
[2020-09-18] MEDS: Enoxaparin 80 MG/0.8 ML Syringe 70 MG SC (18:07)
[2020-09-18] MEDS: 0.9% Normal Saline 1,000 ML 100 ML IV (20:19)
[2020-09-19] VITALS (10 sets, daily range): BP systolic 126–194; BP diastolic 57–94; PULSE 38–59; RESP 12–14; TEMP 36.4–36.7; O2SAT 94–100
[2020-09-19 03:59] LABS: Absolute Neutrophil Count 2.7 X10^3/uL (2.0-7.7); Hematocrit 36.5 % (40-54); Hemoglobin 12.1 g/dL (13.0-16.5); Lymphocyte % 9.3 % (19-41); Mean Corp Hgb Conc 33.2 g/dL (32-36); Mean Corpuscular Hgb 30.6 pg (27.0-32.0); Mean Corpuscular Volume 92.2 fL (80-94); Mean Platelet Vol. 11.2 fl (6.2-12.0); Monocyte# 0.25 X10^3/uL; Monocyte% 7.8 % (0-10); NRBC Flagged by Analyzer 0 % (0-5); Neutrophil # 2.66 X10^3/uL (2.7-7.7); Neutrophil % 82.6 % (47-70); POSITIVE COUNT YES; POSITIVE DIFFERENTIAL YES; Platelet Count 95 K/mm3 (150-450); RBC Distribution Width CV 13.2 % (11.6-14.6); Red Blood Count 3.96 M/mm3 (4.6-6.2); White Blood Count 3.2 K/mm3 (4.4-11.0)
[2020-09-19 04:02] LABS: Differential Indicated SCAN CRITERIA MET
[2020-09-19 04:23] LABS: ALB/GLOB Ratio 1.1 RATIO (0.9-2.4); AST(SGOT) 36 U/L (15-37); Alanine Aminotransfer ALT/SGPT 24 U/L (16-61); Albumin, Serum 2.9 g/dL (3.2-5.0); Alkaline Phosphatase 49 U/L (45-117); Anion Gap 5 (5-15); BUN 42 mg/dL (7-18); BUN/Creat Ratio 21.3 RATIO (10-20); Calcium,Total 7.8 mg/dL (8.5-10.1); Chloride 103 mmol/L (98-107); Creatinine, Serum 1.97 mg/dL (0.70-1.30); EST Glomerular Filtration Rate 35 mL/min (>60); Est Glom Filt Rate - Afr Amer 43 mL/min (>60); Estimated Creatinine Clearance 32.22 ml/min; Globulin 2.6 g/dL (2.2-4.2); Glucose 116 mg/dL (74-106); Potassium 3.9 mmol/L (3.5-5.1); Protein, Total 5.5 g/dL (6.4-8.2); Sodium Level 137 mmol/L (136-145)
[2020-09-19 04:43] LABS: Differential Comment SCANNED; Platelet Estimate SLT DEC (ADEQ)
[2020-09-19] MEDS: 0.9% Normal Saline 1,000 ML 100 ML IV ×2 (05:06→15:12)
--- NOTE | 2020-09-19 08:19 | PN.HOSP_ITS ---
Subjective Subjective Patient is a 75-year-old gentleman with multiple comorbidities including metastatic carcinoid tumor hypertension who was brought to the emergency department with confusion patient was found to be hypoxic he is SARS-CoV-2 assay came back positive admitted as a case of acute hypoxic respiratory failure secondary to SARS-CoV-2 pneumonia Objective Data Objective Data Vital Signs: Vital Signs Temp Pulse Resp BP Pulse Ox 97.6 F L 40 L 12 142/94 H 98 09/19/20 04:05 09/19/20 04:54 09/19/20 04:05 09/19/20 04:54 09/19/20 08:09 Oxygen Flow Rate (L/min) 3 Oxygen Delivery Method Nasal Cannula Weight: 70.307 kg Body Mass Index (BMI) 20.9 Intake & Output: Intake and Output for Last 24 Hours 09/17/20 09/18/20 09/19/20 23:59 23:59 23:59 Intake Total 625.00 / 625.00 878.33 / 878.33 Output Total 200 / 200 Balance 625.00 / 425.00 678.33 / 678.33 Lab / Micro Data Result Diagrams: 09/19/20 03:30 09/19/20 03:30 Micro: Microbiology 09/18/20 11:43 Interface Orders SARS-CoV-2 Antigen (Rapid) - Final SARS-CoV-2 (COVID 19) Radiography Diagnostic Testing: Radiology Impression Chest X-Ray 09/18/20 12:00 IMPRESSION: No acute pulmonary abnormality. Left-sided PICC line in good position. at 1225 Reported and signed by: Pillo Porter MD Electronically Signed: Pillo Porter MD at 12:24 EDT Tel , Service support , Physical Exam Narrative GENERAL: cooperative HEENT: Atraumatic; EYES; Anicteric, Normal Conjunctiva NECK; supple, normal thyroid, RESPIRATORY: Diminished to auscultation CARDIOVASCULAR: Regular S1 S2, GI: soft, normoactive bowel sounds, : No Renal angle tenderness; EXTREMITIES: No edema, no clubbing, MUSCULOSKELETAL: no muscle waisting NEURO: Awake; no lateralizing signs. SKIN: No Rash PSYCH; Flat affect Assessment & Plan Assessment/Plan (1) Acute COVID-19: PLAN: Patient is a 75-year-old gentleman with multiple comorbidities including metastatic carcinoid tumor hypertension who was brought to the emergency department with confusion patient was found to be hypoxic he is SA RS-CoV-2 assay came back positive admitted as a case of acute hypoxic respiratory failure secondary to SARS-CoV-2 pneumonia 1. Acute hypoxic respiratory failure ?Secondary to SARS-CoV-2 pneumonia. Patient has been admitted to intensive care unit where patient is currently being managed with breathing treatments as well as steroids and incentive spirometry with supplemental oxygen titrated to keep saturation greater than 90 2. Essential hypertension ?Did continue with home meds except for lisinopril due to worsening kidney function on admission 3. Acute kidney injury ?Superimposed on chronic kidney disease stage III. Patient was on lisinopril held rehydrated kidney function improving 4. Metastatic carcinoid tumor ?Patient being managed by PCP as outpatient 5. Elevated D-dimer ?CTA of the chest could not be performed in view of patient's impaired kidney function patient was started on therapeutic Lovenox 6. DVT prophylaxis ?Lovenox Visit Charges Inpatient E&M: 92733 Subs Hosp L3
[2020-09-19] MEDS: FLUoxetine 20 MG Capsule 40 MG PO (09:23)
[2020-09-19] MEDS: Doxazosin 4 MG Tablet PO (09:23)
[2020-09-19] MEDS: Enoxaparin 80 MG/0.8 ML Syringe 70 MG SC ×2 (09:24→21:31)
[2020-09-19] MEDS: oxyCODONE HCl Cr 10 MG Tablet 20 MG PO ×2 (11:47→21:32)
--- NOTE | 2020-09-19 13:35 | VDLE_ITS ---
Reason For Study: elevated D-Dimer RIGHT LEFT GSV is normal. GSV is normal. CFV is compressible. CFV is compressible. FV is compressible. FV is compressible. POP V is compressible. POP V is compressible. T/P Trunk is compressible. T/P Trunk is compressible. PTV is compressible. PTV is compressible. RT PerV is compressible. LT PerV is compressible. Procedure This is a venous duplex using B-mode, color flow and spectral Doppler. Exam performed portable in ICU/CCU. The exam was abbreviated due to the COVID 19 protocol. The exam was diagnostic. A preliminary report was called and/or faxed to the pt's RN. VL/Venous Duplex US - Jose Extrem Interpretation Summary Deep veins of the lower extremities are bilaterally patent and compressible seg mentally. There is no evidence of deep vein thrombosis on either side. The great saphenous veins appe ar bilaterally patent and compressible segmentally. Ordering Physician: Lance Estrada Performed By: Arya Pinzon RVT
[2020-09-19 13:44] LABS: Pathologist Review Reviewed
--- NOTE | 2020-09-19 15:10 | CASEMGMT ---
Addendum entered by Harry Chadwick 09/19/20 15:42: [facility]: PH: [phone] Original Note: MISHEL HAMMER ASSESSMENT COVID-19 +. In isolation precautions. MISHEL HAMMER placed call to pt's room for initial transition planning/care coordination assessment. MISHEL HAMMER introduced self and role at [facility]. Pt voices understanding and consents to assessment at this time. Pt is A/O at this time and answers all questions appropriately. Care providers, pharmacy, and demographics verified/updated at this time. PCP: Marya HANSON. CLASSIFIED AD TAKER: Nasim Clark Specialists: [facility]: [facility]ology and [facility]ology. Per RN @ [facility], pt has an appt w/hot mill shearer tomorrow. RN states will cx this at this time d/t pt being hospitalized. Pt made aware and to reschedule once he is discharged. Preferred Pharmacy: [facility] [place] for short-term fill, [place] for all other meds. Pt states one of his children can garbage pick up worker the medications @ [facility] @ d/c. Insurance: [facility] A only, [place] benefits Prescription Benefit: [facility] only Living Will/HPOA: Has both LW and Healthcare POA, who is his , Layne. LNOK: , Layne. They have 6 adult children and over 20 grand/great-grandchildren. Living Arrangements:Pt lives w/his , Layne, in 2-story home w/many steps to enter through the front entrance. Ramp entrance in back of house. 1/2 bath and bedroom is on 1st floor. Pt denies difficulty w/stairs. Pt's 25-yr-old handicapped granddaughter lives w/them and pt and his help to take care of her. Pt states he is independent w/ADL's. does most home mgmt tasks. is also currently hospitalized w/COVID. Pt states their granddaughter has not had any COVID symptoms and she is being cared for by their friends while pt and his are hospitalized. Pt states they have family/friends that can get groceries/supplies for them while they are quarantining. They have disinfectants, masks, and hand bag machine helper. Transportation: Pt states drives self and states no transportation concerns at this time. also drives. DME: States has the following DME: shower chair lift, stair lift, cane, O2 @ 3 L/M @ [facility] only [facility]. Call placed to [facility], and this was confirmed. Pt states was in the process of getting a walker thru the [facility], but states, I don't have it yet. MISHEL HAMMER spoke w/RN @ [facility] and they have not initiated a walker for pt yet. Pt states if a walker is recommended by therapy, he would be willing to get one prior to discharge and have it billed through [facility]. Reviewed list w/pt of local [employer] and made aware [facility] is an affiliate of [facility]. Pt agreeable to [facility]. HHC/SNF: No history of SNF. Pt active w/[facility] for SN. Pt was provided with list of C providers including quality and resource use data and consistent with the patient's preferred geographic region, medical needs, and insurance network. The pt's preferred provider is to return home w/RONNY w/[facility]. . Pt wishes to return home and states has no concerns with going home at time of discharge. CM to follow for any increase in home oxygen needs and any further discharge planning/needs. Pt voices no further concerns/needs at this time. Advised pt to ask for CM if any further questions/concerns/needs arise. Voices understanding. PLAN: Home w/RONNY of [facility]: SN and discharge plans in place. PT/OT evals pending. Pt states if a walker is recommended by therapy, he would be willing to get one prior to discharge and have it billed through [facility] CM to follow for any increase in O2 needs @ d/c. Pt's current O2 order thru the [facility] is @ 3 L/M @ [facility] only. Baron VELAZQUEZ RN, CM
[2020-09-20] VITALS (8 sets, daily range): BP systolic 119–191; BP diastolic 65–70; PULSE 43–58; RESP 12–15; TEMP 36.2–36.7; O2SAT 91–95
[2020-09-20] MEDS: 0.9% Normal Saline 1,000 ML 100 ML IV ×2 (00:16→09:21)
[2020-09-20] MEDS: hydrALAZINE 20 MG/ML Vial 10 MG IV (02:18)
[2020-09-20] MEDS: 0.9% Saline Lock 10 ML Syringe IV (02:19)
[2020-09-20 05:09] LABS: Absolute Lymphocyte Count 1.08 X10^3/uL (0.83-4.51); Absolute Neutrophil Count 4.2 X10^3/uL (2.0-7.7); Eosinophil# 0.01 X10^3/uL; Eosinophils% 0.2 % (0-5); Hematocrit 39.7 % (40-54); Hemoglobin 13.4 g/dL (13.0-16.5); Lymphocyte # 1.08 X10^3/ul (0.83-4.51); Lymphocyte % 19.3 % (19-41); Mean Corp Hgb Conc 33.8 g/dL (32-36); Mean Corpuscular Hgb 30.7 pg (27.0-32.0); Mean Corpuscular Volume 91.1 fL (80-94); Mean Platelet Vol. 10.4 fl (6.2-12.0); Monocyte# 0.27 X10^3/uL; Monocyte% 4.8 % (0-10); NRBC Flagged by Analyzer 0 % (0-5); Neutrophil # 4.21 X10^3/uL (2.7-7.7); Neutrophil % 75.3 % (47-70); Platelet Count 122 K/mm3 (150-450); RBC Distribution Width CV 13.2 % (11.6-14.6); RBC Distribution Width SD 44.9 fl (35.1-43.9); Red Blood Count 4.36 M/mm3 (4.6-6.2); White Blood Count 5.6 K/mm3 (4.4-11.0)
[2020-09-20 05:20] LABS: AST(SGOT) 39 U/L (15-37); Alanine Aminotransfer ALT/SGPT 29 U/L (16-61); Albumin, Serum 3.1 g/dL (3.2-5.0); Alkaline Phosphatase 51 U/L (45-117); Anion Gap 6 (5-15); BUN 31 mg/dL (7-18); BUN/Creat Ratio 19.4 RATIO (10-20); Chloride 106 mmol/L (98-107); EST Glomerular Filtration Rate 45 mL/min (>60); Est Glom Filt Rate - Afr Amer 54 mL/min (>60); Estimated Creatinine Clearance 39.67 ml/min; Glucose 82 mg/dL (74-106); Magnesium 1.4 mg/dL (1.6-2.6); Potassium 3.8 mmol/L (3.5-5.1); Protein, Total 6.1 g/dL (6.4-8.2); Sodium Level 139 mmol/L (136-145)
--- NOTE | 2020-09-20 07:20 | PN.HOSP_ITS ---
Subjective Subjective Patient seen had a relatively uneventful night. Currently on room air. Blood pressure not well controlled added amlodipine to therapy. Plan is for patient to be discharged home later this afternoon Objective Data Objective Data Vital Signs: Vital Signs Temp Pulse Resp BP Pulse Ox 97.9 F 57 L 15 191/70 H 91 09/20/20 02:00 09/20/20 03:19 09/20/20 02:00 09/20/20 02:18 09/20/20 02:00 Oxygen Flow Rate (L/min) 2 Oxygen Delivery Method Room Air Weight: 70.307 kg Body Mass Index (BMI) 20.9 Intake & Output: Intake and Output for Last 24 Hours 09/18/20 09/19/20 09/20/20 23:59 23:59 23:59 Intake Total 625.00 / 625.00 2118.33 / 2358.33 1146.67 / 1146.67 Output Total 975 / 1125 700 / 700 Balance 625.00 / 425.00 1143.33 / 1233.33 446.67 / 446.67 Lab / Micro Data Result Diagrams: 09/20/20 04:45 09/20/20 04:45 Labs: Laboratory Results - last 24 hr 09/19/20 09/20/20 09/20/20 03:30 04:45 04:45 WBC 5.6 RBC 4.36 L Hgb 13.4 Hct 39.7 L MCV 91.1 MCH 30.7 MCHC 33.8 RDW Std Deviation 44.9 H RDW Coeff of Gretel 13.2 Plt Count 122 L MPV 10.4 Immature Gran % (Auto) 0.400 Neut % (Auto) 75.3 H Lymph % (Auto) 19.3 [place] % (Auto) 4.8 Eos % (Auto) 0.2 Baso % (Auto) 0.0 Absolute Neuts (auto) 4.2 Absolute Lymphs (auto) 1.08 Nucleated RBC % 0 [address] Review Reviewed Sodium 139 Potassium 3.8 Chloride 106 Carbon Dioxide 27.0 Anion Gap 6 BUN 31 H Creatinine 1.60 H Estim Creat Clear Calc 39.67 Est GFR (MDRD) Af Amer 54 L Est GFR (MDRD) Non-Af 45 L BUN/Creatinine Ratio 19.4 Glucose 82 Calcium 8.0 L Magnesium 1.4 L Total Bilirubin 0.60 AST 39 H ALT 29 Alkaline Phosphatase 51 Total Protein 6.1 L Albumin 3.1 L Globulin 3.0 Albumin/Globulin Ratio 1.0 Micro: Microbiology 09/18/20 11:43 Interface Orders SARS-CoV-2 Antigen (Rapid) - Final SARS-CoV-2 (COVID 19) Physical Exam Narrative GENERAL: cooperative HEENT: Atraumatic; EYES; Anicteric, Normal Conjunctiva NECK; supple, normal thyroid, RESPIRATORY: Diminished to auscultation CARDIOVASCULAR: Regular S1 S2, GI: soft, normoactive bowel sounds, : No Renal angle tenderness; EXTREMITIES: No edema, no clubbing, MUSCULOSKELETAL: no muscle waisting NEURO: Awake; no lateralizing signs. SKIN: No Rash PSYCH; Flat affect Assessment & Plan Assessment/Plan (1) Acute COVID-19: PLAN: Patient is a 75-year-old gentleman with multiple comorbidities including metastatic carcinoid tumor hypertension who was brought to the emergency department with confusion patient was found to be hypoxic he is SARS-CoV-2 assay came back positive admitted as a case of acute hypoxic respiratory failure secondary to SARS-CoV-2 pneumonia 1. Acute hypoxic respiratory failure ?Secondary to SARS-CoV-2 pneumonia. Patient has been admitted to intensive care unit where patient is currently being managed with breathing treatments as well as steroids and incentive spirometry with supplemental oxygen titrated to keep saturation greater than 90 2. Essential hypertension ?Did continue with home meds except for lisinopril due to worsening kidney function on admission -09/20/2020 added amlodipine to patient's therapy 3. Acute kidney injury ?Superimposed on chronic kidney disease stage III. Patient was on lisinopril held rehydrated kidney function improving 4. Metastatic carcinoid tumor ?Patient being managed by PCP as outpatient 5. Elevated D-dimer ?CTA of the chest could not be performed in view of patient's impaired kidney function patient was started on therapeutic Lovenox 6. DVT prophylaxis ?Lovenox Visit Charges Inpatient E&M: 02850 Subs Hosp L2
--- NOTE | 2020-09-20 07:52 | DCINST_ITS ---
Discharge Instructions Diet Discharge Diet: No restrictions Activity Discharge Activity: Return to Normal Activity Dressing / Incision Call your doctor if you observe: Fever of 101 or Higher, Shortness of breath, Fainting spells and Chest pain Follow Up Care Test Results: Test results from this visit will be discussed in further detail at your follow-up appointment, if applicable. Discharge Plan Admission Admit Date/Time: 09/18/20 12:48 Primary Reason for Your Visit: Acute COVID-19 pneumonitis Attending Provider: Lance Estrada Primary Care Provider: [facility] Instructions Patient Instructions: Coronavirus Disease 2019 (COVID-19): Overview, Convalescent Plasma Donation for COVID-19 Discharge Orders/Prescriptions Prescriptions: New amlodipine 10 mg Tablet 10 mg PO DAILY 90 Days Qty: 90 RF: 0 dexamethasone [Decadron] 6 mg tablet 6 mg PO DAILY Qty: 10 RF: 0 Continued loperamide 2 mg Capsule 2 mg PO 4X/DAY PRN PRN (Reason: Diarrhea) RF: 0 oxycodone 20 mg Tablet Extended Release 12 Hr 20 mg PO BID RF: 0 doxazosin 2 mg Tablet 4 mg PO BID RF: 0 oxycodone 5 mg Tablet 15 mg PO Q4H PRN PRN (Reason: Pain) RF: 0 meloxicam 15 mg Tablet 15 mg PO DAILY RF: 0 diphenoxylate-atropine 2.5-0.025 mg Tablet 1 tab PO 4X/DAY PRN PRN (Reason: Diarrhea) RF: 0 chlorthalidone 25 mg Tablet 12.5 mg PO DAILY RF: 0 escitalopram oxalate 5 mg Tablet 5 mg PO DAILY RF: 0 diphenoxylate-atropine [Lomotil] 2.5-0.025 mg Tablet 1 tab PO TID PRN PRN (Reason: Diarrhea) RF: 0 fluticasone propionate 50 mcg/actuation [place],Suspension 1 spray INTRANASAL DAILY RF: 0 cholecalciferol (vitamin D3) [Vitamin D3] 25 mcg (1,000 unit) Capsule 25 mcg PO DAILY RF: 0 cyanocobalamin (vitamin B-12) 1,000 mcg/mL Syringe 1,000 mcg QMONTH RF: 0 Discontinued lisinopril 40 mg Tablet 40 mg PO QHS RF: 0 Referrals / Follow Up: [facility] [Primary Care Provider] - Within 1 Month Disposition Disposition (needs filled in before D/C Order can be placed): Home, self care
--- NOTE | 2020-09-20 07:54 | DS.PCM_ITS ---
Providers Date of Admission: 09/18/20 Primary Care Physician: [facility] Reason For Visit: COVID-19, HYPOXIA Diagnosis Discharge Diagnosis (1) Acute COVID-19: Status: Acute Code(s): U07.1 - COVID-19 Medications at Discharge Home Medications chlorthalidone 12.5 mg PO DAILY 09/19/20 cholecalciferol (vitamin D3) [Vitamin D3] 25 mcg PO DAILY 09/19/20 cyanocobalamin (vitamin B-12) 1,000 mcg QMONTH 09/19/20 diphenoxylate-atropine 1 tab PO 4X/DAY PRN PRN 09/19/20 diphenoxylate-atropine [Lomotil] 1 tab PO TID PRN PRN 09/19/20 doxazosin 4 mg PO BID 09/19/20 escitalopram oxalate 5 mg PO DAILY 09/19/20 fluticasone propionate 1 spray INTRANASAL DAILY 09/19/20 loperamide 2 mg PO 4X/DAY PRN PRN 09/19/20 meloxicam 15 mg PO DAILY 09/19/20 oxycodone 15 mg PO Q4H PRN PRN 09/19/20 oxycodone 20 mg PO BID 09/19/20 amlodipine 10 mg PO DAILY 90 Days #90 tab 09/20/20 dexamethasone [Decadron] 6 mg PO DAILY #10 tab 09/20/20 Hospital Course Summary of Care Provided Minutes Spent on Discharge: 35 Hospital Course: Patient is a 75-year-old gentleman with multiple comorbidities including metastatic carcinoid tumor hypertension who was brought to the emergency department with confusion patient was found to be hypoxic he is SARS-CoV-2 assay came back positive admitted as a case of acute hypoxic res piratory failure secondary to SARS-CoV-2 pneumonia 1. Acute hypoxic respiratory failure ?Secondary to SARS-CoV-2 pneumonia. Patient has been admitted to intensive care unit where patient is currently being managed with breathing treatments as well as steroids and incentive spirometry with supplemental oxygen titrated to keep saturation greater than 90 -Patient condition did improve was weaned off oxygen. Was discharged home on Decadron 2. Essential hypertension ?Did continue with home meds except for lisinopril due to worsening kidney function on admission -09/20/2020 added amlodipine to patient's therapy 3. Acute kidney injury ?Superimposed on chronic kidney disease stage III. Patient was on lisinopril held rehydrated kidney function improving 4. Metastatic carcinoid tumor ?Patient being managed by PCP as outpatient 5. Elevated D-dimer ?CTA of the chest could not be performed in view of patient's impaired kidney function patient was started on therapeutic Lovenox 6. DVT prophylaxis ?Lovenox Physical Exam Const alert General Appearance: cooperative HEENT head/scalp atraumatic Eyes conjunctivae normal Resp normal respiratory effort and no use of accessory muscles Cardio regular rate and regular rhythm GI normal to inspection, nondistended, normoactive bowel sounds Extremity no clubbing, cyanosis or edema Neuro no focal motor deficits Sensorium / Orientation: oriented to person Psych affect normal ABG / Lab / Microbiology Data Result Diagrams: 09/20/20 04:45 09/20/20 04:45 Laboratory: Laboratory Results - last 24 hr 09/19/20 09/20/20 09/20/20 03:30 04:45 04:45 WBC 5.6 RBC 4.36 L Hgb 13.4 Hct 39.7 L MCV 91.1 MCH 30.7 MCHC 33.8 RDW Std Deviation 44.9 H RDW Coeff of Gretel 13.2 Plt Count 122 L MPV 10.4 Immature Gran % (Auto) 0.400 Neut % (Auto) 75.3 H Lymph % (Auto) 19.3 [place] % (Auto) 4.8 Eos % (Auto) 0.2 Baso % (Auto) 0.0 Absolute Neuts (auto) 4.2 Absolute Lymphs (auto) 1.08 Nucleated RBC % 0 Diff Path Review Reviewed Sodium 139 Potassium 3.8 Chloride 106 Carbon Dioxide 27.0 Anion Gap 6 BUN 31 H Creatinine 1.60 H Estim Creat Clear Calc 39.67 Est GFR (MDRD) Af Amer 54 L Est GFR (MDRD) Non-Af 45 L BUN/Creatinine Ratio 19.4 Glucose 82 Calcium 8.0 L Magnesium 1.4 L Total Bilirubin 0.60 AST 39 H ALT 29 Alkaline Phosphatase 51 Total Protein 6.1 L Albumin 3.1 L Globulin 3.0 Albumin/Globulin Ratio 1.0 Microbiology: Microbiology 09/18/20 11:43 Interface Orders SARS-CoV-2 Antigen (Rapid) - Final SARS-CoV-2 (COVID 19) D/C Instructions Discharge Diet: No restrictions Discharge Activity: Return to Normal Activity Call your doctor if you observe: Fever of 101 or Higher, Shortness of breath, Fainting spells and Chest pain Meaningful Use Info Meaningful Use Diagnoses (Choose all that apply): None applicable Discharge Plan Admission Admit Date/Time: 09/18/20 12:48 Primary Reason for Your Visit: Acute COVID-19 pneumonitis Attending Provider: Lance Estrada Primary Care Provider: [facility] Instructions Patient Instructions: Coronavirus Disease 2019 (COVID-19): Overview, Convalescent Plasma Donation for COVID-19 Discharge Orders/Prescriptions Prescriptions: New amlodipine 10 mg Tablet 10 mg PO DAILY 90 Days Qty: 90 RF: 0 dexamethasone [Decadron] 6 mg tablet 6 mg PO DAILY Qty: 10 RF: 0 Continued loperamide 2 mg Capsule 2 mg PO 4X/DAY PRN PRN (Reason: Diarrhea) RF: 0 oxycodone 20 mg Tablet Extended Release 12 Hr 20 mg PO BID RF: 0 doxazosin 2 mg Tablet 4 mg PO BID RF: 0 oxycodone 5 mg Tablet 15 mg PO Q4H PRN PRN (Reason: Pain) RF: 0 meloxicam 15 mg Tablet 15 mg PO DAILY RF: 0 diphenoxylate-atropine 2.5-0.025 mg Tablet 1 tab PO 4X/DAY PRN PRN (Reason: Diarrhea) RF: 0 chlorthalidone 25 mg Tablet 12.5 mg PO DAILY RF: 0 escitalopram oxalate 5 mg Tablet 5 mg PO DAILY RF: 0 diphenoxylate-atropine [Lomotil] 2.5-0.025 mg Tablet 1 tab PO TID PRN PRN (Reason: Diarrhea) RF: 0 fluticasone propionate 50 mcg/actuation [place],Suspension 1 spray INTRANASAL DAILY RF: 0 cholecalciferol (vitamin D3) [Vitamin D3] 25 mcg (1,000 unit) Capsule 25 mcg PO DAILY RF: 0 cyanocobalamin (vitamin B-12) 1,000 mcg/mL Syringe 1,000 mcg QMONTH RF: 0 Discontinued lisinopril 40 mg Tablet 40 mg PO QHS RF: 0 [facility] - Within 1 Month Disposition Disposition (needs filled in before D/C Order can be placed): Home, self care Visit Charges Inpatient E&M: 39944 Disch Hosp
[2020-09-20] MEDS: Doxazosin 4 MG Tablet PO (09:16)
--- NOTE | 2020-09-20 09:16 | CASEMGMT ---
Though pt seems alert and oriented, as per medical staff credentialing coordinator he is forgetful at times. is primary plant taxonomist, and she is also recovering from COVID. has expressed concern about caring for pt at home, so SW followed up w/. SW spoke w/ in regard to pt and his homegoing needs. declined referral for SNF, referral for PT for home health. She states is trying to get a hold of Aiden at the [facility], as pt has some home based services through the [facility] already to monitor his weight and blood pressure. She was told by Aiden they could add aide services. She states she just needs help short term, while they are both recovering from COVID. Pt also has [facility], open to adding aide services through [facility] as well. She also states that [facility] has the number to get in touch w/Aiden. She is not interested in adding PT for pt as she states it does not help. She states that [facility] just helps with the PICC line, a nurse comes out once per week to help w/dressing changes, and does the IVs. SW inquired about getting pt a walker, as pt had reported he was going to get a walker through the [facility]. open to pt getting a walker ordered prior to his discharge here. SW explained that case management will look into this for pt. Plan continues to be for pt to return home w/resumption of [facility], the possible addition of aide services either through [facility] or [facility], and attaining a walker for pt. JOSE Vasquez
[2020-09-20] MEDS: oxyCODONE HCl Cr 10 MG Tablet 20 MG PO (09:17)
[2020-09-20] MEDS: Enoxaparin 80 MG/0.8 ML Syringe 70 MG SC (09:17)
[2020-09-20] MEDS: amLODIPine 10 MG Tablet PO (09:17)
[2020-09-20] MEDS: FLUoxetine 20 MG Capsule 40 MG PO (09:19)
--- NOTE | 2020-09-20 09:56 | CASEMGMT ---
Addendum entered by Julienne Shelton 09/20/20 12:07: MISHEL HAMMER received call from [email or web address] that walker is not covered by insurance. RN CM called patient and to see if they would still like walker, cost is $47.50. Patient and state they have a walker that the patient can use at home. RN HARMAN provided script for FWW if they should reconsider. Patient and voiced understanding over the phone. Addendum entered by Julienne Shelton 09/20/20 10:10: MISHEL HAMMER called and left message with Donita Kwan at [facility] regarding request for additional services. Original Note: MISHEL HAMMER updated by FADY that patient will need walker at discharge. MISHEL HAMMER received script for FWW and referral sent to [facility] which is patient's preferred DME provider. MISHEL HAMMER arranged for walker to be delivered to patient's room prior to discharge. MISHEL HAMMER also updated by FADY that is requesting additional aide services through the [facility]. Patient currently has HHC with [facility]. MISHEL HAMMER called [facility] and spoke to Denisse. Denisse verified that patient's services are contracted through the [facility]. Denisse provided RN CM at [facility] Donita Kwan [facility] Nurse Coordinator [phone] ext [phone]. MISHEL HAMMER updated Denisse that patient will be discharging home today. CM to call Donita at [facility] to arrange for additional aide services per 's request for bathing and feeding. CM will continue to follow this patient and plan for a safe discharge.
--- NOTE | 2020-09-20 11:30 | NURSING ---
At 11:30AM the patient was wheeled into his wifes room to eat lunch and visit with her.
--- NOTE | 2020-09-20 11:30 | NURSING ---
At 11:30
--- NOTE | 2020-09-20 13:10 | NURSING ---
patient refusing cardiac monitoring.
--- NOTE | 2020-09-20 14:24 | CASEMGMT ---
SW called pt's room multiple times and pt's 's cell phone in regard to wanting to leave as soon as possible and expressing frustration at this time. and pt did not answer the phone. JOSE Vasquez
--- NOTE | 2020-09-20 14:33 | NURSING ---
patient and refusing to stay for venous duplex, D/C order in, instructions given verbal/written, [place] notified.
--- NOTE | 2020-09-20 14:44 | NURSING ---
Kyle, patient advocate talked with patient and spouse, patient agreeable to staying for venous duplex and leaving after the test.
--- NOTE | 2020-09-20 16:39 | NURSING ---
venous duplex ultrasound done, patient D/C'd, SHREDDING MACHINE OPERATOR assisted patient in wheelchair to patient 's car.
--- NOTE | 2020-09-21 10:06 | CASEMGMT ---
MISHEL HAMMER received call back from Donita Kwan at the [facility]. Donita states that the patient's PAC team at [facility] care provider. Donita states she will send note to Jori FLORENTINO at [facility] PCP offices. MISHEL HAMMER updated Harry FLORENTINO CM regarding message. Harry FLORENTINO CM states she has call out to Jori FLORENTINO and awaiting call back.
--- NOTE | 2020-09-21 14:23 | CASEMGMT ---
Addendum entered by Harry Chadwick 09/21/20 15:08: Call placed to Denisse @ [facility]. She was notified that has not picked up new prescriptions from [facility] and that she is working on getting them through the [facility], but that this process can take several days. She states will have [facility] nurse f/u on this tomorrow during home visit. Call received from [facility] RNHarjinder, who states he received a call from pt's re: new medications and is aware is wanting to get these meds throught the [facility]. Reviewed new rx's sent to [facility] pharmacy w/Harjinder RN: Amlodipine, Prednisone, and Magnesium. Also discussed 's request for an aide for a week. He states he will reach out to [facility] re: same. Discharge instructions and summary faxed to Marya HANSON @ [phone] per Harjinder's request. Also faxed Mag level of 1.4 drawn 09/20/20 and copy of Magnesium Sulfate order that was e-scribed to [facility] pharmacy. Original Note: MISHEL HAMMER Discharge Follow-Up Phone Call. Lace: 9 Strata: 2 Discharge Date: 09/20/20 Adm Dx: COVID-19, hypoxia Call to pt to inquire about how he has been doing since being discharged from the hospital. , Victoriano, answered and spoke w/MISHEL HAMMER. She states, He's really tired and is resting a lot. I've been pushing fluids. He doesn't have a temp. I think he is a little more steady on his feet. She states his lips are really dry and she was going to call his PCP re: if she should give pt IV fluids today. inquired if [facility] had called back to MISHEL HAMMER re: an aide. She was informed Donita from the [facility] did call today and she was going to contact MISHEL Grande from [facility] Pact Team re: an aide for pt. made aware approval for an aide would come from the [facility]. inquired about time frame of the aide and further inquired if they would only be coming for a week, b/c that is all the longer she wants them, stating, I don't want them long-term. also stated she did contact the [facility] lady today who told her she would put a call in to the PCP to get the ball rolling on an aide and that she was awaiting a call back from her. MISHEL HAMMER advised to let the VA know, when they called her back, that she is only wanting an aide for a week. MISHEL HAMMER inquired of pt if they picked up the 3 new prescriptions at [facility]. states, I have a call in to the [facility] about getting them. MISHEL HAMMER informed that the process can take several days for pt to get prescriptions through the [facility]. Reviewed all 3 of the new medications w/ at this time and and advised to her to get them from [facility] so pt can be taking them as prescribed until they can be obtained from the [facility]. stated, okay. She denies having any questions about the other discharge instructions. Baron VELAZQUEZ RN CM
== END 2020-09-20 16:08 | disposition home or self-care (01) | DRG 177 ==
LOC: ED 12:39 → ICU 13:43
PROVIDERS: Admitting Provider Internal Medicine; Emergency Provider Emergency Medicine; Visit Provider Internal Medicine
DX: U07.1 COVID-19 (principal); J12.82 Pneumonia due to coronavirus disease 2019; J96.01 Acute respiratory failure with hypoxia; G93.41 Metabolic encephalopathy; N17.9 Acute kidney failure, unspecified; C7A.00 Malignant carcinoid tumor of unspecified site; E34.0 Carcinoid syndrome; I12.9 Hypertensive chronic kidney disease with stage 1 through stage 4 chronic kidney disease, or unspecified chronic kidney disease; N18.31 Chronic kidney disease, stage 3a; F17.200 Nicotine dependence, unspecified, uncomplicated; Z79.899 Other long term (current) drug therapy; C7B.00 Secondary carcinoid tumors, unspecified site
CPT/HCPCS: 71045; 80053; 83605; 83735; 85025; 85379; 87040; 87426; 93005; 93970; 97162; 97166; 99285; J7030; A4216

== ENCOUNTER 2020-11-20 00:12 | Emergency (ER) | payer OTHER, SELFPAY ==
[2020-09-18 13:51] VITALS: BMI 20.9
[2020-11-20 00:13] VITALS: PULSE 55; RESP 16; TEMP 36; O2SAT 98; BMI 23.0
[2020-11-20 00:15] VITALS: BP 236/84
[2020-11-20 00:32] VITALS: BP 207/86; PULSE 45; RESP 16; O2SAT 97
--- NOTE | 2020-11-20 00:40 | EX.ED.DYSGE1 ---
HPI History of Present Illness Chief Complaint: Hypertension Informant: patient Onset/Context/Timing Onset: Today Timing: Intermittent Narrative Narrative: 75-year-old male [facility] patient there is a history of hypertension for which he takes lisinopril at night and another blood pressure medication the morning. He also has a known history of colon cancer with liver mets. Which she has had for greater than 10 years. Patient's blood pressures been running high over the last several months. Has been monitored closely by the [facility] and they are adjusting his medications. He denies any symptoms tonight his pressure was around 230/120 and he came in to have them evaluated. He denies any headache, chest pain or other symptoms. He has been urinating normally. Prior similar symptoms: Yes Recent Illness/Hospitalization: No PFSH PFSH Medical History Cancer Former smoker Hypertension Stroke/cerebrovascular accident Home Medications chlorthalidone 12.5 mg PO DAILY 09/19/20 [History Last Taken Unknown] cholecalciferol (vitamin D3) [Vitamin D3] 25 mcg PO DAILY 09/19/20 [History Last Taken Unknown] cyanocobalamin (vitamin B-12) 1,000 mcg QMONTH 09/19/20 [History Last Taken Unknown] diphenoxylate-atropine 1 tab PO 4X/DAY PRN PRN 09/19/20 [History Last Taken Unknown] diphenoxylate-atropine [Lomotil] 1 tab PO TID PRN PRN 09/19/20 [History Last Taken Unknown] doxazosin 4 mg PO BID 09/19/20 [History Last Taken Unknown] escitalopram oxalate 10 mg PO DAILY 09/19/20 [History Last Taken Unknown] fluticasone propionate 1 spray INTRANASAL DAILY 09/19/20 [History Last Taken Unknown] loperamide 2 mg PO 4X/DAY PRN PRN 09/19/20 [History Last Taken Unknown] meloxicam 15 mg PO DAILY 09/19/20 [History Last Taken Unknown] oxycodone 15 mg PO Q4H PRN PRN 09/19/20 [History Last Taken Unknown] oxycodone 20 mg PO BID 09/19/20 [History Last Taken Unknown] amlodipine 10 mg PO DAILY 90 Days #90 tab 09/20/20 [Rx Last Taken Unknown] dexamethasone [Decadron] 6 mg PO DAILY #10 tab 09/20/20 [Rx Last Taken Unknown] magnesium sulfate 200 mg PO BID #60 cap 09/20/20 [Rx Last Taken Unknown] lisinopril 10 mg PO BID 11/20/20 [History Last Taken Unknown] Allergy/AdvReac Type Severity Reaction Status Date / Time amoxicillin Allergy Rash Verified 11/20/20 00:15 codeine AdvReac Nausea Verified 11/20/20 00:15 Surgical History History of appendectomy History of cholecystectomy S/P colectomy Social History Smoking Status: Current some day smoker tobacco type: cigarettes ROS ROS ED ROS Narrative 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 Review of Systems ROS Unobtainable: Denies due to encephalopathy Constitutional Constitutional ED: Denies anorexia or chills Eyes Eyes: Denies acute decrease in peripheral vision, blindness or blind spots ENT ENT ED: Denies change in voice or dysphagia Cardiovascular Cardiovascular: Denies abdominal pain or nausea Respiratory/Chest Respiratory/Chest: Denies chest congestion, chest tightness or cough Gastrointestinal Gastrointestinal: Reports diarrhea; Denies abdominal pain Genitourinary Genitourinary ED: Denies change in urinary stream or drinking/eating less Musculoskeletal Musculoskeletal: Denies back pain Integumentary Denies bleeding lesions Neurologic Neurologic: Denies abnormal movements or focal weakness Psychiatric Psychiatric: Denies anxiety or memory loss Endocrine Endocrinology: Denies cold intolerance or polydipsia Hematologic/Lymphatic Hematologic/Lymphatic: Denies easy bruising Allergic/Immunologic Allergic/Immunologic ED: Denies itchy eyes or mouth swelling EXAM Physical Exam Narrative Exam Narrative: Well-appearing male no acute distress. Blood pressure is 207/86 when in the room. Exam unremarkable. at bedside. Lungs are clear. Heart regular rhythm. Moving all 4 extremities. No edema. Const Vital Signs: 11/20/20 00:13 11/20/20 00:15 11/20/20 00:21 Temperature 96.8 F L Temperature Source Temporal Pulse Rate 55 L Respiratory Rate 16 Respiratory Effort Normal Non-Labored Respiratory Pattern Normal Blood Pressure 236/84 H Blood Pressure Mean 134 Pulse Ox 98 Oxygen Delivery Method Room Air 11/20/20 00:32 Temperature Temperature Source Pulse Rate 45 L Respiratory Rate 16 Respiratory Effort Respiratory Pattern Blood Pressure 207/86 H Blood Pressure Mean 126 Pulse Ox 97 Oxygen Delivery Method Room Air Positive well nourished, well developed, alert, oriented x3, no apparent distress and average body habitus; Negative for obese, cachectic, contractures or unkempt General Appearance ED: well developed; Negative for unkempt, cachectic or contractures Nutritional Appearance: Negative for cachectic or obese HEENT Reports normocephalic and head/scalp atraumatic Eyes PERRL, EOMs intact bilaterally, conjunctivae normal and no scleral icterus Neck full ROM, nuchal rigidity, no lymphadenopathy, supple, no meningeal signs and no JVD Lymph Lymphatic: no lymphadenopathy noted and no lymphedema noted Chest Wall inspection of chest normal and palpation of chest normal Resp normal respiratory effort, normal air movement, no retractions, no use of accessory muscles and clear to auscultation bilaterally Cardio regular rate, regular rhythm, S1 normal heart sound, S2 normal heart sound and no murmurs GI normal to inspection, nondistended, normoactive bowel sounds, soft to palpation, non-tender and non-distended Back/Spine no CVA tenderness, normal ROM, normal to inspection and thoracic and lumbar spine normal to inspection Extremity normal to inspection, full ROM and normal capillary refill Neuro oriented x3, CN's II-XII intact bilaterally, moves all extremities and no focal motor deficits Psych Appearance: Negative for unkempt Skin no rashes or lesions noted, no wounds, skin turgor normal, no jaundice, no petechiae and no mottling MDM MDM MDM Narrative Medical decision making narrative: Gentleman with acute on chronic hypertension. Currently his blood pressure 207/86 with no symptoms. He is already on 2 different blood pressure medications at home. His exam is benign. He is having no chest pain or shortness of breath. No edema. He needs no labs at this time. We will get a monitor him and see if his blood pressure comes down on its own. Repeat exam patient is doing well at 1:25 AM. I have a long discussion with both he and his . His current blood pressure is 207/99. He is having no symptoms and they are comfortable with him being discharged home. I did encourage them to follow-up for further evaluation of his blood pressure and possibly consider seeing a computer equipment installer for blood pressure control. Discharge Plan Triage Chief Complaint: Hypertension ED Provider: Jewel Gibson Dx/Rx/DC Orders Clinical Impression: Benign essential HTN Instructions: Hypertension Dc Prescriptions: No Action loperamide 2 mg Capsule 2 mg PO 4X/DAY PRN PRN (Reason: Diarrhea) RF: 0 oxycodone 20 mg Tablet Extended Release 12 Hr 20 mg PO BID RF: 0 doxazosin 2 mg Tablet 4 mg PO BID RF: 0 oxycodone 5 mg Tablet 15 mg PO Q4H PRN PRN (Reason: Pain) RF: 0 meloxicam 15 mg Tablet 15 mg PO DAILY RF: 0 diphenoxylate-atropine 2.5-0.025 mg Tablet 1 tab PO 4X/DAY PRN PRN (Reason: Diarrhea) RF: 0 chlorthalidone 25 mg Tablet 12.5 mg PO DAILY RF: 0 escitalopram oxalate 5 mg Tablet 10 mg PO DAILY RF: 0 diphenoxylate-atropine [Lomotil] 2.5-0.025 mg Tablet 1 tab PO TID PRN PRN (Reason: Diarrhea) RF: 0 fluticasone propionate 50 mcg/actuation [place],Suspension 1 spray INTRANASAL DAILY RF: 0 cholecalciferol (vitamin D3) [Vitamin D3] 25 mcg (1,000 unit) Capsule 25 mcg PO DAILY RF: 0 cyanocobalamin (vitamin B-12) 1,000 mcg/mL Syringe 1,000 mcg QMONTH RF: 0 amlodipine 10 mg Tablet 10 mg PO DAILY 90 Days Qty: 90 RF: 0 dexamethasone [Decadron] 6 mg tablet 6 mg PO DAILY Qty: 10 RF: 0 magnesium sulfate 100 mg capsule 200 mg PO BID Qty: 60 RF: 0 lisinopril 10 mg Tablet 10 mg PO BID RF: 0 [facility] [Primary Care Provider] - As Needed Activity Restrictions/Additional Instructions: Take your blood pressure medications as prescribed. [facility] Disposition Disposition: Home, Self Care
[2020-11-20 01:35] VITALS: BP 201/80; PULSE 50; RESP 16; O2SAT 99
== END 2020-11-20 01:35 | disposition home or self-care (01) ==
LOC: ED 00:52
PROVIDERS: Emergency Provider Emergency Medicine
DX: I10 Essential (primary) hypertension (principal); F17.210 Nicotine dependence, cigarettes, uncomplicated; Z79.899 Other long term (current) drug therapy
CPT/HCPCS: 99282

== ENCOUNTER 2021-09-21 15:52 | Inpatient (IN) | payer OTHER, SELFPAY ==
[2021-09-21] VITALS (10 sets, daily range): BP systolic 96–117; BP diastolic 57–99; PULSE 50–80; RESP 14–24; TEMP 36.6–39.3; O2SAT 93–98; BMI 22.8; BMI 22.4
--- NOTE | 2021-09-21 16:09 | EKG12_ITS ---
Test Reason : Blood Pressure : / mmHG Vent. Rate : 081 BPM Atrial Rate : 081 BPM P-R Int : 192 ms QRS Dur : 098 ms QT Int : 366 ms P-R-T Axes : 037 -57 058 degrees QTc Int : 425 ms Normal sinus rhythm Left anterior fascicular block Abnormal ECG Confirmed by MECCA PIMENTEL, MARKO ([id number]), proposal editor DEANNA TESFAYE ([id number]) on 09/25/2021 9:54:00 AM Referred By: Confirmed By:ROHIT WING MD
--- NOTE | 2021-09-21 16:11 | EDS_ITS ---
HPI History of Present Illness Chief Complaint: General Illness Informant: patient and family Onset/Context/Timing Onset: Days Context: Gradual Onset Timing: Continuous Current Severity: Moderate Maximum Severity: Moderate Narrative Narrative: 76-year-old male history of carcinoid tumor with metastases, hypertension and renal insufficiency. He has had a cough and fever and has not felt well last 6 or 7 days family with him but he was getting better. Worse again today and had recurrent productive cough with white sputum. Normally he is not on oxygen. When the squad came the house to pick him up to bring him to the hospital and his pulse ox was 83% on room air. They put him on oxygen. He also has a fever today of 102.5. No vomiting. No diarrhea. No dysuria. He has been vaccinated against COVID. Prior similar symptoms: No Recent Illness/Hospitalization: No PFSH PFS Medical History (Updated 09/21/21 @ 19:[address] Jewel Gibson MD) Anxiety and depression Cancer Former smoker History of COVID-19 Hypertension Multiple metastatic carcinoid tumors Stroke/cerebrovascular accident Home Medications chlorthalidone 25 mg PO DAILY 09/19/20 [History Last Taken 09/21/21] doxazosin 4 mg PO QHS 09/19/20 [History Last Taken 09/20/21] escitalopram oxalate 10 mg PO DAILY 09/19/20 [History Last Taken 09/20/21] fluticasone propionate 1 spray INTRANASAL DAILY 09/19/20 [History Last Taken 09/20/21] oxycodone 10 mg PO DAILY@1500 09/19/20 [History Last Taken 09/21/21] oxycodone 20 mg PO BID 09/19/20 [History Last Taken 09/21/21] amlodipine 10 mg PO DAILY 90 Days #90 tab 09/20/20 [Rx Last Taken 09/21/21] aripiprazole 2.5 mg PO DAILY 09/21/21 [History Last Taken 09/21/21] cholecalciferol (vitamin D3) 75 mcg PO DAILY 09/21/21 [History Last Taken 09/21/21] cyanocobalamin (vitamin B-12) 1,000 mcg IM QMONTH 09/21/21 [History Last Taken 1 Month Ago ~08/22/21] guaifenesin [Guaiatussin] 200 mg PO Q6H PRN 09/21/21 [History Last Taken 0 5/19/22] loratadine 10 mg PO DAILY 09/21/21 [History Last Taken 09/20/21] octreotide acetate 2,500 mcg SUBCUT .[id number] 09/21/21 [History Last Taken 09/19/21] telotristat ethyl 250 mg PO BID 09/21/21 [History Last Taken 09/21/21] Allergy/AdvReac Type Severity Reaction Status Date / Time amoxicillin Allergy Rash Verified 09/21/21 16:09 codeine AdvReac Nausea Verified 09/21/21 16:09 Family History (Updated 09/21/21 @ 18:[address] Linda Falcon MD) Mother Heart disease Myocardial infarction CAD (coronary artery disease) Father COPD (chronic obstructive pulmonary disease) Surgical History (Updated 09/21/21 @ 17:[address] Linda Falcon MD) H/O resection of small bowel History of appendectomy History of cholecystectomy S/P colectomy Social History (Updated 09/21/21 @ 18:[address] Linda Falcon MD) household members: spouse Smoking Status: Former smoker how long ago did patient quit smoking: Patient smoked in the only and quit remotely. alcohol intake: never substance use type: does not use ROS ROS ED ROS Narrative Cough, fever, shortness of breath and weakness. Review of Systems ROS Unobtainable: Denies due to encephalopathy Constitutional Constitutional ED: Reports fever(s) Eyes Eyes: Denies change in vision ENT ENT ED: Denies ear pain or sore throat Cardiovascular Cardiovascular: Denies chest pain Respiratory/Chest Respiratory/Chest: Reports cough, dyspnea and sputum Gastrointestinal Gastrointestinal: Reports diarrhea; Denies abdominal pain, nausea or vomiting Genitourinary Genitourinary ED: Denies dysuria Musculoskeletal Musculoskeletal: Denies myalgias Integumentary Denies rash Neurologic Neurologic: Denies headache(s) Psychiatric Psychiatric: Denies depression Endocrine Endocrinology: Denies polyuria Allergic/Immunologic Allergic/Immunologic ED: Denies urticaria EXAM Physical Exam Narrative Exam Narrative: 60-year-old male vital signs are stable. Except pulse ox 83% on room air. Currently is on 10 L and is 95%. Temperature of 1-2.5. Patient clinically looks ill. H EENT exam unremarkable. Mild jungles membranes. Neck nontender. Lungs coarse breath sounds bilaterally. Equal symmetrical. Heart regular rhythm rate about 80. Abdomen soft nontender. Moving all 4 extremities. Calves nontender without edema or cords. Neurologically is awake, alert, answering questions following commands. Const Vital Signs: 09/21/21 15:54 09/21/21 16:08 09/21/21 16:38 Temperature 102.5 F H 102.5 F H Temperature Source Oral Oral Pulse Rate 80 74 Respiratory Rate 24 H 22 H Respiratory Effort Normal Non-Labored Respiratory Pattern Normal Blood Pressure 117/68 114/69 Blood Pressure Mean 84 84 Pulse Ox 95 93 Oxygen Delivery Method Non-Rebreather Nasal Cannula Oxygen Flow Rate (L/min) 10 6 09/21/21 16:39 09/21/21 17:00 09/21/21 17:30 Temperature 102.6 F H 102.8 F H Temperature Source Oral Oral Pulse Rate 65 Respiratory Rate 24 H Respiratory Effort Respiratory Pattern Blood Pressure 111/63 Blood Pressure Mean 79 Pulse Ox 96 Oxygen Delivery Method Nasal Cannula Nasal Cannula Oxygen Flow Rate (L/min) 6 6 Positive well nourished, well developed and unkempt; Negative for obese, cache ctic or contractures General Appearance ED: unkempt, well developed and NAD; Negative for cachectic, contractures, cyanotic, diaphoretic or pallor Nutritional Appearance: Negative for cachectic or obese HEENT Reports dry mucous membranes Negative for trauma or tenderness Mouth ED: Yes dry mucous membranes Mouth: dry mucous membranes Eyes PERRL and EOMs intact bilaterally General Eye ED: Negative for pale conjunctiva or scleral icterus Neck no lymphadenopathy, supple and no JVD General: Negative for tenderness Chest Wall inspection of chest normal and palpation of chest normal Resp No normal respiratory effort and No clear to auscultation bilaterally Resp Narrative: Coarse breath sounds bilaterally. Effort and Inspection: Negative for pain with movement Auscultation: Negative for rales, rhonchi or wheezes Cardio regular rate, regular rhythm, S1 normal heart sound, S2 normal heart sound and no murmurs GI normal to inspection, nondistended, normoactive bowel sounds, non-tender, non- distended and no masses Inspection: Negative for abdominal distention Auscultation: normoactive bowel sounds Palpation: soft; Negative for tender, guarding or rebound tenderness present Back/Spine no CVA tenderness General Back: Negative for CVA tenderness Cervical Spine: Negative for cervical spine tenderness Thoracic Spine / Upper Back: Negative for thoracic spinal tenderness Extremity normal to inspection General Extremety ED: Negative for edema or tenderness General Extremity: Negative for edema Neuro oriented x3 Sensorium / Orientation: alert; Negative for orientation impaired, lethargic or stuporous Motor Exam: strength 5/5 throughout Psych mental status grossly normal Appearance: unkempt Mood & Affect: Negative for depressed or tearful Skin no rashes or lesions noted and no wounds General Skin Exam: Negative for jaundice or pallor MDM MDM MDM Narrative Medical decision making narrative: 76-year-old male with fever and hypoxia. Suspect underlying respiratory infection pneumonia, COVID versus other etiologies. He will be put through the sepsis protocol. IV fluids. Tylenol for his fever. Labs and chest x-ray. He will need admitted. Repeat exam patient doing well at 5:45 PM. I went over all test results with he and his . They know he is going to be admitted have already spoken to the hospitalist. I am going to add a CAT scan of the chest without contrast to evaluate for possible pneumonia not picked up on the chest x-ray. The hospitalist is already added a COVID PCR test also. CAT scan showed bilateral lower lobe pneumonia with small effusions. Patient was started on IV Rocephin and Zithromax. I discussed with the hospitalist. Lab Data Attestation: I reviewed the patient's lab results. Lab results narrative: CBC shows a white count 11.9. H&H of 14 and 40. Platelets of 301. PT/INR of 13.8 and 1.1. Electrolytes show sodium 135. Potassium of 2.8. Gap 11. BUN and creatinine of 56 and 3.17 consistent with acute kidney injury. Liver enzymes negative. Lactic acid 1.6. UA pending. C OVID and influenza negative. Labs: Laboratory Results - last 24 hr 09/21/21 09/21/21 09/21/21 15:45 15:45 15:45 WBC 11.9 H RBC 4.54 L Hgb 14.1 Hct 40.1 MCV 88.3 MCH 31.1 MCHC 35.2 RDW Std Deviation 39.8 RDW Coeff of Gretel 12.2 Plt Count 301 MPV 9.6 Immature Gran % (Auto) 0.700 Neut % (Auto) 88.5 H Lymph % (Auto) 4.1 L [place] % (Auto) 6.0 Eos % (Auto) 0.3 Baso % (Auto) 0.4 Absolute Neuts (auto) 10.5 H Absolute Lymphs (auto) 0.49 L Nucleated RBC % 0 Differential Comment SEE COMMENT Platelet Estimate ADEQUATE RBC Morphology NORM C+C Anisocytosis RARE PT 13.8 INR 1.1 APTT 33.5 D-Dimer Quant (PE/DVT) Sodium 135 L Potassium 2.8 L Chloride 98 Carbon Dioxide 26.0 Anion Gap 11 BUN 56 H Creatinine 3.17 H Estim Creat Clear Calc 21.45 Est GFR (MDRD) Af Amer 25 L Est GFR (MDRD) Non-Af 20 L BUN/Creatinine Ratio 17.7 Glucose 136 H Lactic Acid Calcium 8.9 Magnesium Ferritin Total Bilirubin 0.70 AST 38 H ALT 37 Alkaline Phosphatase 71 Lactate Dehydrogenase Troponin I High Sens 7 C-React Prot Ext Range B-Natriuretic Peptide Total Protein 7.6 Albumin 3.5 Globulin 4.1 Albumin/Globulin Ratio 0.9 09/21/21 09/21/21 09/21/21 15:45 15:45 15:45 WBC RBC Hgb Hct MCV MCH MCHC RDW Std Deviation RDW Coeff of Gretel Plt Count MPV Immature Gran % (Auto) Neut % (Auto) Lymph % (Auto) [place] % (Auto) Eos % (Auto) Baso % (Auto) Absolute Neuts (auto) Absolute Lymphs (auto) Nucleated RBC % Differential Comment Platelet Estimate RBC Morphology Anisocytosis PT INR APTT D-Dimer Quant (PE/DVT) 1.40 H* Sodium Potassium Chloride Carbon Dioxide Anion Gap BUN Creatinine Estim Creat Clear Calc Est GFR (MDRD) Af Amer Est GFR (MDRD) Non-Af BUN/Creatinine Ratio Glucose Lactic Acid Calcium Magnesium 1.8 Ferritin 397 H Total Bilirubin AST ALT Alkaline Phosphatase Lactate Dehydrogenase 253 H Troponin I High Sens C-React Prot Ext Range 80.40 H B-Natriuretic Peptide 32.6 Total Protein Albumin Globulin Albumin/Globulin Ratio 09/21/21 16:25 WBC RBC Hgb Hct MCV MCH MCHC RDW Std Deviation RDW Coeff of Gretel Plt Count MPV Immature Gran % (Auto) Neut % (Auto) Lymph % (Auto) [place] % (Auto) Eos % (Auto) Baso % (Auto) Absolute Neuts (auto) Absolute Lymphs (auto) Nucleated RBC % Differential Comment Platelet Estimate RBC Morphology Anisocytosis PT INR APTT D-Dimer Quant (PE/DVT) Sodium Potassium Chloride Carbon Dioxide Anion Gap BUN Creatinine Estim Creat Clear Calc Est GFR (MDRD) Af Amer Est GFR (MDRD) Non-Af BUN/Creatinine Ratio Glucose Lactic Acid 1.6 Calcium Magnesium Ferritin Total Bilirubin AST ALT Alkaline Phosphatase Lactate Dehydrogenase Troponin I High Sens C-React Prot Ext Range B-Natriuretic Peptide Total Protein Albumin Globulin Albumin/Globulin Ratio Radiography Chest X-Ray - ED: 1 View, Read by ED Physician, Heart, Mediastinum, Bony Structures, No Acute Disease and Chronic Changes Diagnostic Testing: Clinical Impression(s) from Imaging Studies Chest X-Ray 09/21/21 16:47 IMPRESSION: Poor inspiration with some bibasilar atelectasis. Electronically Signed: Bal Morrison MD at 17:02 EDT , Chest x-ray, portable, single view shows bilateral atelectasis. No obvious infiltrate. Interpreted by myself and the radiologist. Rhythm Strip Rhythm Strip: Sinus Rhythm Rate: 81 Ectopy: None EKG Initial EKG: Attestation: I personally reviewed and interpreted this EKG as follows: Interpretation: Sinus Rhythm and No Acute Injury Pattern Comments: Normal sinus rhythm rate 81 no acute signs of MS or ischemia. Critical Care Time Critical Care Time: Yes Critical care time (excluding procedures): 30-74 minutes, Discussing w/Patient &/or Family/Metal Burnisher, Discussing w/Consultants, Arranging Admission or Transfer, Performing Direct Patient Care at Bedside and - (32 min) Discharge Plan Dx/Rx/DC Orders Clinical Impression: Hypoxia, Respiratory failure, Acute kidney injury, SIRS (systemic inflammatory response syndrome), Acute hypokalemia, Bilateral pneumonia Disposition Disposition: Acute Care Hospital [facility]
[2021-09-21] MEDS: 0.9% Normal Saline 1,000 ML 999 ML IV ×2 (16:13→19:37)
[2021-09-21] MEDS: Acetaminophen 500 MG Tablet 1000 MG PO (16:13)
[2021-09-21 16:40] LABS: Absolute Lymphocyte Count 0.49 X10^3/uL (0.83-4.51); Absolute Neutrophil Count 10.5 X10^3/uL (2.0-7.7); Basophil# 0.05 X10^3/uL; Basophil% 0.4 % (0-1); Eosinophil# 0.03 X10^3/uL; Eosinophils% 0.3 % (0-5); Hematocrit 40.1 % (40-54); Hemoglobin 14.1 g/dL (13.0-16.5); Lymphocyte # 0.49 X10^3/ul (0.83-4.51); Lymphocyte % 4.1 % (19-41); Mean Corp Hgb Conc 35.2 g/dL (32-36); Mean Corpuscular Hgb 31.1 pg (27.0-32.0); Mean Corpuscular Volume 88.3 fL (80-94); Mean Platelet Vol. 9.6 fl (6.2-12.0); Monocyte# 0.71 X10^3/uL; NRBC Flagged by Analyzer 0 % (0-5); Neutrophil # 10.49 X10^3/uL (2.7-7.7); Neutrophil % 88.5 % (47-70); POSITIVE DIFFERENTIAL YES; Platelet Count 301 K/mm3 (150-450); RBC Distribution Width CV 12.2 % (11.6-14.6); RBC Distribution Width SD 39.8 fl (35.1-43.9); Red Blood Count 4.54 M/mm3 (4.6-6.2); White Blood Count 11.9 K/mm3 (4.4-11.0)
[2021-09-21 16:47] LABS: Differential Indicated SCAN CRITERIA MET
--- NOTE | 2021-09-21 16:47 | RAD_ITS ---
STUDY: X-RAY CHEST REASON FOR EXAM: Male, 76 years old. cough TECHNIQUE: Single AP portable view of the chest. COMPARISON: 09/18/2020 FINDINGS: Poor inspiration with some bibasilar atelectasis. There is no demonstrated pleural abnormality. Normal size heart. Normal mediastinum and tracey. Normal visualized pulmonary arteries. Normal visualized aortic arch and descending thoracic aorta. Normal visualized thoracic spine. Normal visualized ribs, clavicles, and shoulders. There is no demonstrated abnormality of the visualized soft tissue structures of the upper abdomen. RAD/Chest 1 View (Portable) IMPRESSION: Poor inspiration with some bibasilar atelectasis. Electronically Signed: Bal Morrison MD at 17:02 EDT ,
[2021-09-21 16:52] LABS: International Normalized Ratio 1.1; Prothrombin Time (Protime)PT. 13.8 SECONDS (11.7-14.9)
[2021-09-21 16:53] LABS: Partial Thromboplast Time 33.5 Seconds (24.1-36.2)
[2021-09-21 17:09] LABS: ALB/GLOB Ratio 0.9 RATIO (0.9-2.4); AST(SGOT) 38 U/L (15-37); Alanine Aminotransfer ALT/SGPT 37 U/L (16-61); Albumin, Serum 3.5 g/dL (3.2-5.0); Alkaline Phosphatase 71 U/L (45-117); Anion Gap 11 (5-15); BUN 56 mg/dL (7-18); BUN/Creat Ratio 17.7 RATIO (10-20); Calcium,Total 8.9 mg/dL (8.5-10.1); Chloride 98 mmol/L (98-107); Creatinine, Serum 3.17 mg/dL (0.70-1.30); EST Glomerular Filtration Rate 20 mL/min (>60); Est Glom Filt Rate - Afr Amer 25 mL/min (>60); Estimated Creatinine Clearance 21.45 ml/min; Globulin 4.1 g/dL (2.2-4.2); Glucose 136 mg/dL (74-106); Potassium 2.8 mmol/L (3.5-5.1); Protein, Total 7.6 g/dL (6.4-8.2); Sodium Level 135 mmol/L (136-145); Troponin-I HS 7 pg/mL (3.0-78.0)
[2021-09-21 17:14] LABS: Anisocytosis RARE; Platelet Estimate ADEQUATE (ADEQ); Red Cell Morphology NORM C+C NORMAL (NORM C&C)
--- NOTE | 2021-09-21 17:32 | PCM.HP.STD ---
HPI - General General Date of Admission: 09/21/21 Date of Service: 09/21/21 Chief Complaint: Cough, dyspnea, malaise, hypoxia. 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 Patient denies any N/V, sore throat, headaches or alteration of sense of taste and smell. The has since felt better but noted it took nearly 2.5 weeks and she tested 2x for COVID both negative and had a influenza test that was also negative. Patient does have chronic diarrhea and notes this is unchanged in addition to his chronic abdominal pain. Patient has been vaccinated against COVID-19 and has prior history of COVID illness 09/2020. Work-up in the ED included T102.5, heart rate 80, BP 117/68, respiratory rate 24, initially 95% on a nonrebreather transition to a 6 L nasal cannula noted to be 93%, CBC with WC 11.9, hemoglobin 14.1, platelets 301 with left shift and lymphopenia, coags not marked appearing, CMP with sodium 135, potassium 2.8, BUN/creat 56/3.17, glucose 136, hepatic profile not marked appearing, troponin 7, pending lactic acid, chest x-ray with some bibasilar atelectasis however poor inspiratory effort, blood culture x2 pending per ED, rapid flu and COVID antigen negative. In the ED patient administered tylenol and NS bolus. CT chest without contrast being obtained upon admission. [facility] Medical History (Updated 09/21/21 @ 17:[address] Jewel Gibson MD) Anxiety and depression Cancer Former smoker History of COVID-19 Hypertension Multiple metastatic carcinoid tumors Stroke/cerebrovascular accident Home Medications chlorthalidone 25 mg PO DAILY 09/19/20 [History Last Taken 09/21/21] doxazosin 4 mg PO QHS 09/19/20 [History Last Taken 09/20/21] escitalopram oxalate 10 mg PO DAILY 09/19/20 [History Last Taken 09/20/21] fluticasone propionate 1 spray INTRANASAL DAILY 09/19/20 [History Last Taken 09/20/21] oxycodone 10 mg PO DAILY@1500 09/19/20 [History Last Taken 09/21/21] oxycodone 20 mg PO BID 09/19/20 [History Last Taken 09/21/21] amlodipine 10 mg PO DAILY 90 Days #90 tab 09/20/20 [Rx Last Taken 09/21/21] aripiprazole 2.5 mg PO DAILY 09/21/21 [History Last Taken 09/21/21] cholecalciferol (vitamin D3) 75 mcg PO DAILY 09/21/21 [History Last Taken 09/21/21] cyanocobalamin (vitamin B-12) 1,000 mcg IM QMONTH 09/21/21 [History Last Taken 1 Month Ago ~08/22/21] guaifenesin [Guaiatussin] 200 mg PO Q6H PRN 09/21/21 [History Last Taken 09/21/21] loratadine 10 mg PO DAILY 09/21/21 [History Last Taken 09/20/21] octreotide acetate 2,500 mcg SUBCUT .[id number] 09/21/21 [History Last Taken 09/19/21] telotristat ethyl 250 mg PO BID 09/21/21 [History Last Taken 09/21/21] Allergy/AdvReac Type Severity Reaction Status Date / Time amoxicillin Allergy Rash Verified 09/21/21 16:09 codeine AdvReac Nausea Verified 09/21/21 16:09 Family History (Updated 09/21/21 @ 18:[address] Linda Falcon MD) Mother Heart disease Myocardial infarction CAD (coronary artery disease) Father COPD (chronic obstructive pulmonary disease) Surgical History (Updated 09/21/21 @ 17:[address] Linda Falcon MD) H/O resection of small bowel History of appendectomy History of cholecystectomy S/P colectomy Social History (Updated 09/21/21 @ 18:[address] Linda Falcon MD) household members: spouse Smoking Status: Former smoker how long ago did patient quit smoking: Patient smoked in the only and quit remotely. alcohol intake: never substance use type: does not use ROS ROS Narrative Admission Review of Systems: CONSTITUTIONAL: No weight loss, + fever, chills, weakness or fatigue. HEENT: Eyes: No visual loss, blurred vision, double vision or yellow sclerae. Ears, Nose, Throat: No hearing loss, sneezing, congestion, runny nose or sore throat. SKIN: No rash or itching, lesions, wounds. CARDIOVASCULAR: No chest pain, chest pressure or chest discomfort, palpitations, edema, orthopnea, syncopal events. RESPIRATORY: + Shortness of breath, cough with occasional sputum, No wheezing, hemoptysis. GASTROINTESTINAL: + anorexia, chronic abdominal pain, chronic loose stools. No nausea, vomiting, melena, BRBPR. GENITOURINARY: No dysuria, frequency, urgency or retention. NEUROLOGICAL: No headache, dizziness, syncope, paralysis, ataxia, numbness or tingling in the extremities, focal weakness, change in bowel or bladder control, seizure. MUSCULOSKELETAL: + muscle, back pain, joint pain or stiffness. HEMATOLOGIC: + anemia, bleeding or bruising. LYMPHATICS: No enlarged nodes. No history of splenectomy. PSYCHIATRIC: + history of depression or anxiety. ENDOCRINOLOGIC: No reports of sweating, cold or heat intolerance. No polyuria or polydipsia. ALLERGIES: No history of asthma, hives, eczema or rhinitis. Vital Signs Vital Signs Vital Signs: 09/21/21 15:54 09/21/21 16:08 09/21/21 16:38 Temperature 102.5 F H 102.5 F H Temperature Source Oral Oral Pulse Rate 80 74 Respiratory Rate 24 H 22 H Respiratory Effort Normal Non-Labored Respiratory Pattern Normal Blood Pressure 117/68 114/69 Blood Pressure Mean 84 84 Pulse Ox 95 93 Oxygen Delivery Method Non-Rebreather Nasal Cannula Oxygen Flow Rate (L/min) 10 6 09/21/21 16:39 Temperature Temperature Source Pulse Rate Respiratory Rate Respiratory Effort Respiratory Pattern Blood Pressure Blood Pressure Mean Pulse Ox Oxygen Delivery Method Nasal Cannula Oxygen Flow Rate (L/min) 6 Weight Weight: 168 lb 10.458 oz Body Mass Index (BMI) 22.8 Physical Exam Narrative Physical Examination: General: Awake, alert, oriented x 3 and cooperative, seated upright in the ED bed, fatigued and ill-appearing. Skin: Normal color, normal turgor, no icterus, no cyanosis. HEENT: AT/NC, EOMI, PERRLA, dry MM, no carotid bruits or JVD noted. Lungs: Significantly diminished, greater bases, mildly increased respiratory rate but no distress no rales, ronchi or wheezing. Heart: Currently regular rate and rhythm; no gallop, rub audible. Abdomen: Soft, generalized abdominal discomfort with palpation which he notes is chronic, no rebound or guarding, no obvious distention, mildly hyperactive bowel sounds, no obvious HSM. Extremities: No cyanosis, clubbing, or edema. Neurological: Patient awake, alert, oriented as noted, cognitive function intact; pupils equally reactive to light and accommodation, cranial nerves II-XII grossly normal, moving all 4 extremities, no focal deficits, strength moderately to severely globally Asmita secondary to acute presentation and underlying comorbidities Psychiatric: Affect appears fatigued, flat appearing, ill-appearing, no acute evidence of depressive or anxiety feelings. Results Lab / Micro Data Result Diagrams: 09/21/21 15:45 09/21/21 15:45 Labs: Laboratory Results - last 24 hr 09/21/21 15:45: WBC 11.9 H, RBC 4.54 L, Hgb 14.1, Hct 40.1, MCV 88.3, MCH 31.1, MCHC 35.2, RDW Std Deviation 39.8, RDW Coeff of Gretel 12.2, Plt Count 301, MPV 9.6, Immature Gran % (Auto) 0.700, Neut % (Auto) 88.5 H, Lymph % (Auto) 4.1 L, [place] % (Auto) 6.0, Eos % (Auto) 0.3, Baso % (Auto) 0.4, Absolute Neuts (auto) 10.5 H, Absolute Lymphs (auto) 0.49 L, Nucleated RBC % 0, Differential Comment SEE COMMENT, Platelet Estimate ADEQUATE, RBC Morphology NORM C+C, Anisocytosis RARE 09/21/21 15:45: PT 13.8, INR 1.1, APTT 33.5 09/21/21 15:45: Sodium 135 L, Potassium 2.8 L, Chloride 98, Carbon Dioxide 26.0, Anion Gap 11, BUN 56 H, Creatinine 3.17 H, Estim Creat Clear Calc 21.45, Est GFR (MDRD) Af Amer 25 L, Est GFR (MDRD) Non-Af 20 L, BUN/Creatinine Ratio 17.7, Glucose 136 H, Calcium 8.9, Total Bilirubin 0.70, AST 38 H, ALT 37, Alkaline Phosphatase 71, Troponin I High Sens 7, Total Protein 7.6, Albumin 3.5, Globulin 4.1, Albumin/Globulin Ratio 0.9 Micro: Microbiology 09/21/21 16:25 Nasal Secretion SARS-CoV-2 & FLU Antigen (Rapid) - Final Radiology Impression Chest X-Ray 09/21/21 16:47 IMPRESSION: Poor inspiration with some bibasilar atelectasis. 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 #1. Acute Hypoxia with SIRS, suspected secondary to Acute Viral Syndrome, possibly COVID-19 versus Influenza: Will admit to the [place] telemetry, maintain on COVID precautions pending COVID PCR and full respiratory panel, will maintain on oxygen with wean as tolerated to room air, PRN albuterol, HOB, IS parameters w/ pending sputum cultures and urine antigens, will obtain D-dimer, procalcitonin, CRP, CPK, Ferritin, LDH and BNP, continue supportive care including q 2 hour turning including prone given no prone bed availability and judicious hydration, closely monitor for worsening status for ARDS and multiorgan failure, will initiate IV decadron x 10 doses pending COVID testing and if positive will continue otherwise may de-esclaate off. Given MAGGIE not candidate for antiviral treatment, continue to trend renal functions. If respiratory status worsens and patient requires airvo or BIPAP transition will initiate to elevated status and involve pulm/ID. CT chest pending upon evaluation. #2. Acute kidney injury on CKD stage III unclear subtype: Secondary to acute presentation as noted as well as poor oral intake. Admission BUN/Cr 56/3.17, prior baseline creatinine noted to be 1.6-1.8 primarily over 2020. Will continue to judiciously hydrate, hold nephrotoxic medications and repeat chemistry in AM. Will obtain FeNa assessment. #3. Hyponatremia, suspect hypovolemic: Admission sodium 135, baseline noted to be normal prior, likely secondary to acute presentation as noted, continue judicious hydration, trend CMP. #4. Hypokalemia: Admission K+ 2.8, magnesium level requested, supplementation given, repeat level in AM. #5. 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 #6. Hypertension: We will continue amlodipine, holding chlorthalidone and lisinopril given MAGGIE, resume once appropriate, as needed IV hydralazine. #7. Anxiety and depression: We will continue patient home escitalopram regimen with alterations as needed given MAGGIE. #8. Former tobacco use: Encourage continued tobacco cessation. #9. DVT Prophylaxis: SCDs, heparin. #10. CODE status: Patient YAMILET is his who is and living will is currently in place. Discussed CODE status at length including difference between FULL code, DNR-CCA and DNR-CC status. Following discussions about the differences in these status, requested Full Code status. Advanced Care Planning Face to Face Time: 16 minutes. Charges/Coding Visit Charges Inpatient E&M: 77574 Init Hosp L3 Procedures Hospitalists Procedures: 62919 Advncd Care Plan 30 Min
[2021-09-21 17:34] LABS: Lactic Acid 1.6 mmol/L (0.4-1.9)
--- NOTE | 2021-09-21 17:50 | CT_ITS ---
STUDY: CT Chest W/O Contrast Injection 09/21/2021 6:57 PM REASON FOR EXAM: Male, 76 years old. fever and hypoxia (-) cxr. NO contrast. SOB / SOA Individualized dose optimization techniques were used for this CT. TECHNIQUE: Transaxial imaging was performed withoutIV contrast material. COMPARISON: None. FINDINGS: There are degenerative changes of the shoulders. There is no pneumothorax. There is no demonstrated pleural abnormality. Lower lobe infiltrate suggesting pneumonia. There are calcifications of the coronary arteries. Normal mediastinum. Normal hilar regions. Normal pulmonary arteries. There is atherosclerotic calcification of the aortic arch with tortuosity and elongation of the aortic arch and descending thoracic aorta. There are multi-level degenerative changes of the thoracic spine. The gallbladder is surgically absent. Right adrenal adenoma. There is a hiatal hernia. CT/Chest without Contrast IMPRESSION: There are bilateral pleural effusions. There is bilateral pneumonia. Electronically Signed: Mich Garcia MD at 19:00 EDT ,
[2021-09-21 18:08] LABS: Ferritin 397 ng/mL (26-388); LDH 253 U/L (87-241); Magnesium 1.8 mg/dL (1.6-2.6)
[2021-09-21 18:14] LABS: BNP,B-Type NATRIURETIC PEPTIDE 32.6 pg/mL (0-100)
[2021-09-21 19:21] LABS: Procalcitonin 0.34 ng/mL (0.00-0.09)
[2021-09-21] MEDS: Ceftriaxone 1 GM/50 ML BAG IV (20:33)
[2021-09-21] MEDS: Heparin Injection (Vial) 5,000 UNIT/ML VIAL 5000 UNIT SC (22:30)
[2021-09-21] MEDS: 0.9% Normal Saline 1,000 ML 125 ML IV (22:30)
[2021-09-22] VITALS (14 sets, daily range): BP systolic 92–108; BP diastolic 57–70; PULSE 43–64; RESP 16–18; TEMP 36.7–37.3; O2SAT 93–98
[2021-09-22] MEDS: Potassium Chloride Oral Tablet 20 MEQ 40 MEQ PO ×2 (00:03→14:35)
[2021-09-22] MEDS: oxyCODONE HCl Cr 10 MG Tablet 20 MG PO ×3 (00:04→22:16)
--- NOTE | 2021-09-22 05:55 | RAD_ITS ---
STUDY: X-RAY CHEST REASON FOR EXAM: Male, 76 years old. Dyspnea, cough TECHNIQUE: Single AP portable view of the chest. COMPARISON: Comparison is made with prior study dated 09/21/2021. FINDINGS: EKG electrodes are seen. Since prior study, there has been progressive increased markings at the lung bases worse on the left side. This may represent either atelectasis and/or early infiltrate. Blunting of the left costophrenic angle. Normal size heart. Normal mediastinum and tracey. Normal visualized pulmonary arteries. There is atherosclerotic tortuosity of the aortic arch and descending thoracic aorta. There are diffuse degenerative changes of the visualized thoracic spine. Normal visualized ribs, clavicles, and shoulders. There is no demonstrated abnormality of the visualized soft tissue structures of the upper abdomen. RAD/Chest 1 View (Portable) IMPRESSION: Progressive increased markings at the lung bases more prominent on the left side suggestive of progressive atelectasis and/or early infiltrates. There is blunting of the left costophrenic angle. Electronically Signed: David Ramirez MD at 9:59 EDT ,
[2021-09-22] MEDS: 0.9% Normal Saline 1,000 ML 125 ML IV (06:35)
[2021-09-22 06:36] LABS: Absolute Lymphocyte Count 0.83 X10^3/uL (0.83-4.51); Absolute Neutrophil Count 9.5 X10^3/uL (2.0-7.7); Basophil# 0.04 X10^3/uL; Basophil% 0.4 % (0-1); Eosinophil# 0.08 X10^3/uL; Eosinophils% 0.7 % (0-5); Lymphocyte # 0.83 X10^3/ul (0.83-4.51); Lymphocyte % 7.4 % (19-41); Mean Corp Hgb Conc 34.3 g/dL (32-36); Mean Corpuscular Hgb 31.3 pg (27.0-32.0); Mean Corpuscular Volume 91.1 fL (80-94); Mean Platelet Vol. 9.6 fl (6.2-12.0); Monocyte# 0.69 X10^3/uL; Monocyte% 6.1 % (0-10); NRBC Flagged by Analyzer 0 % (0-5); Neutrophil # 9.52 X10^3/uL (2.7-7.7); Neutrophil % 84.8 % (47-70); Platelet Count 255 K/mm3 (150-450); RBC Distribution Width CV 12.5 % (11.6-14.6); RBC Distribution Width SD 41.3 fl (35.1-43.9); Red Blood Count 3.84 M/mm3 (4.6-6.2); White Blood Count 11.2 K/mm3 (4.4-11.0)
[2021-09-22 07:05] LABS: ALB/GLOB Ratio 0.8 RATIO (0.9-2.4); AST(SGOT) 26 U/L (15-37); Alanine Aminotransfer ALT/SGPT 30 U/L (16-61); Albumin, Serum 2.9 g/dL (3.2-5.0); Alkaline Phosphatase 55 U/L (45-117); Anion Gap 7 (5-15); BUN 53 mg/dL (7-18); BUN/Creat Ratio 19.1 RATIO (10-20); Calcium,Total 8.3 mg/dL (8.5-10.1); Chloride 103 mmol/L (98-107); Creatinine, Serum 2.77 mg/dL (0.70-1.30); EST Glomerular Filtration Rate 24 mL/min (>60); Est Glom Filt Rate - Afr Amer 29 mL/min (>60); Estimated Creatinine Clearance 24.04 ml/min; Globulin 3.5 g/dL (2.2-4.2); Glucose 112 mg/dL (74-106); Protein, Total 6.4 g/dL (6.4-8.2); Sodium Level 136 mmol/L (136-145)
[2021-09-22] MEDS: Fluticasone 0.05% 1 SPRAY NASAL.SRY NASAL (08:48)
[2021-09-22] MEDS: Escitalopram Oxalate 10 MG Tablet PO (08:48)
[2021-09-22] MEDS: amLODIPine 10 MG Tablet PO (08:48)
[2021-09-22] MEDS: Doxazosin 4 MG Tablet PO (08:48)
[2021-09-22] MEDS: Heparin Injection (Vial) 5,000 UNIT/ML VIAL 5000 UNIT SC ×2 (08:49→23:00)
--- NOTE | 2021-09-22 12:05 | CASEMGMT ---
RN HARMAN UTILIZATION REVIEW RN CM to room to meet with patient for initial transition planning/care coordination assessment. MISHEL HAMMER introduced self and role at [facility]. Pt voices understanding and consents to assessment at this time. Pt resting in bed in no distress at this time. Pt is A/O at this time and answers all questions appropriately. Care providers, pharmacy, and demographics verified/updated at this time. PCP: Marya HANSON Specialists: [facility]ologist @ [facility] Preferred [facility]acy: [facility] Retail Insurance: [place], [facility] A only Prescription Benefit: [facility] only Living Will/HPOA: Has both LW and HPOA, who is his , Layne Orozco LNOK: , Layne Orozco. Dtr, Isidra Living Arrangements: Lives w/his and 27-yr-old grand-daughter in split-level home w/chair lift @ stairs. 2 steps to enter home. Pt states over the last few months, he has become weaker and assists him w/bathing and dressing @ times. manages most home tasks. Transportation: Pt states drives self and states no transportation concerns at this time. also drives DME: States has the following DME: lift to get into tub, cane, chair lift for stairs, and pulse ox. Pt also has a walker and rollator available but does not use. No home O2. Pt states, if O2 is needed @ d/c, he would prefer to get it through [facility]. He did state, if he needs it @ d/c and if [facility] unable to [facility] day of [facility]c, then he would be willing to have it initially set up/billed through [facility] and then would work on getting it switched over to the [facility]. Pt states no need for further DME at this time. HHC/SNF: No hx of SNF. States he currently has HHC, but does not remember name of agency. Call placed to pt's and she does not remember name either. She states she is on her way in to see pt and will provide the info to CM when she arrives. Pt wishes to return home and states has no concerns with going home at time of discharge. Pt states does not smoke or drink ETOH. CM to follow for home oxygen needs and any further discharge planning/needs. Pt voices no further concerns/needs at this time. Advised pt to ask for CM if any further questions/concerns/needs arise. Voices understanding. PLAN: Baron FAIRCHILDN RN CM
--- NOTE | 2021-09-22 12:23 | CASEMGMT ---
Addendum entered by Julienne Quevedo 09/22/21 14:12: Call from Yin from [facility] as she is covering for Gisell Nova at [employer] today. She states that she will contact to see if they can help with any further aide services. Yin also states if pt needs set up with HHC at discharge then it should be set up thru his [facility] and the info faxed to pt's team at [facility]: Attn to Nasim Hines NP, . Pt's nurse at [facility] is Jori العراقي. PT/OT orders placed at this time. Per Mee Gonzalez RN, pt does not qualify for home oxygen at this time. CM to follow. Tamika FLORENTINO CM Original Note: Per , pt has aides 3 days per week-4 hours one day and then 3 hours on the other 2 days. Call to number provided for aides and the company is [employer] Jeanie is contact at [phone] and this has been set up thru [place]. Per Jeanie, pt's SW at [facility] is Gisell Nova and her contact number is [phone] ext [phone]. Message left for Gisell to call this RN CM back. Pt to be tested for home oxygen need today as he would prefer [facility] to set up and they do not set up oxygen over the weekend. CM to follow. Tamika FLORENTINO CM
--- NOTE | 2021-09-22 13:43 | PN.HOSP_ITS ---
Subjective Subjective Follow-up for bilateral pneumonia. Objective Data Objective Data Vital Signs: Vital Signs Temp Pulse Resp BP Pulse Ox 98.4 F 59 L 18 108/59 L 94 09/22/21 08:44 09/22/21 08:44 09/22/21 08:44 09/22/21 08:44 09/22/21 13:33 Oxygen Flow Rate (L/min) [ 0 AMBULATING on Room Air] Oxygen Flow Rate (L/min) [At 0 REST on Room Air] Oxygen Flow Rate (L/min) 3 Oxygen Delivery Method Room Air Weight: 165 lb 2.02 oz Body Mass Index (BMI) 22.4 Intake & Output: Intake and Output for Last 24 Hours 09/20/21 09/21/21 09/22/21 23:59 23:59 23:59 Intake Total 2304 / 2304 Balance 2304 / 230 Lab / Micro Data Result Diagrams: 09/22/21 06:15 09/22/21 06:15 Labs: Laboratory Results - last 24 hr 09/21/21 15:45: WBC 11.9 H, RBC 4.54 L, Hgb 14.1, Hct 40.1, MCV 88.3, MCH 31.1, MCHC 35.2, RDW Std Deviation 39.8, RDW Coeff of Gretel 12.2, Plt Count 301, MPV 9.6, Immature Gran % (Auto) 0.700, Neut % (Auto) 88.5 H, Lymph % (Auto) 4.1 L, [place] % (Auto) 6.0, Eos % (Auto) 0.3, Baso % (Auto) 0.4, Absolute Neuts (auto) 10.5 H, Absolute Lymphs (auto) 0.49 L, Nucleated RBC % 0, Differential Comment SEE COMMENT, Platelet Estimate ADEQUATE, RBC Morphology NORM C+C, Anisocytosis RARE 09/21/21 15:45: PT 13.8, INR 1.1, APTT 33.5 09/21/21 15:45: Sodium 135 L, Potassium 2.8 L, Chloride 98, Carbon Dioxide 26.0, Anion Gap 11, BUN 56 H, Creatinine 3.17 H, Estim Creat Clear Calc 21.45, Est GFR (MDRD) Af Amer 25 L, Est GFR (MDRD) Non-Af 20 L, BUN/Creatinine Ratio 17.7, Glucose 136 H, Calcium 8.9, Total Bilirubin 0.70, AST 38 H, ALT 37, Alkaline Phosphatase 71, Troponin I High Sens 7, Total Protein 7.6, Albumin 3.5, Globulin 4.1, Albumin/Globulin Ratio 0.9 09/21/21 15:45: D-Dimer Quant (PE/DVT) 1.40 H* 09/21/21 15:45: Magnesium 1.8, Ferritin 397 H, Lactate Dehydrogenase 253 H, C- React Prot Ext Range 80.40 H 09/21/21 15:45: B-Natriuretic Peptide 32.6 09/21/21 16:25: Lactic Acid 1.6 09/21/21 17:44: COVID-19 (PATRICIA) Not Detected 09/21/21 18:02: Procalcitonin 0.34 H 09/22/21 06:15: WBC 11.2 H, RBC 3.84 L, Hgb 12.0 L, Hct 35.0 L, MCV 91.1, MCH 31.3, MCHC 34.3, RDW Std Deviation 41.3, RDW Coeff of Gretel 12.5, Plt Count 255, MPV 9.6, Immature Gran % (Auto) 0.600, Neut % (Auto) 84.8 H, Lymph % (Auto) 7.4 L, [place] % (Auto) 6.1, Eos % (Auto) 0.7, Baso % (Auto) 0.4, Absolute Neuts (auto) 9.5 H, Absolute Lymphs (auto) 0.83, Nucleated RBC % 0 09/22/21 06:15: Sodium 136, Potassium 3.0 L, Chloride 103, Carbon Dioxide 26.0, Anion Gap 7, BUN 53 H, Creatinine 2.77 H, Estim Creat Clear Calc 24.04, Est GFR (MDRD) Af Amer 29 L, Est GFR (MDRD) Non-Af 24 L, BUN/Creatinine Ratio 19.1, Glucose 112 H, Calcium 8.3 L, Total Bilirubin 0.60, AST 26, ALT 30, Alkaline P hosphatase 55, Total Protein 6.4, Albumin 2.9 L, Globulin 3.5, Albumin/Globulin Ratio 0.8 L Micro: Microbiology 09/21/21 17:44 Mucosa - Nasopharyngeal Respiratory Panel (PCR) - Final Human [place] 09/21/21 16:25 Nasal Secretion SARS-CoV-2 & FLU Antigen (Rapid) - Final Radiography Diagnostic Testing: Radiology Impression Chest X-Ray 09/21/21 16:47 IMPRESSION: Poor inspiration with some bibasilar atelectasis. Electronically Signed: Bal Morrison MD at 17:02 EDT , Chest CT 09/21/21 17:50 IMPRESSION: There are bilateral pleural effusions. There is bilateral pneumonia. Electronically Signed: Mich Garcia MD at 19:00 EDT , Chest X-Ray 09/22/21 05:55 IMPRESSION: Progressive increased markings at the lung bases more prominent on the left side suggestive of progressive atelectasis and/or early infiltrates. There is blunting of the left costophrenic angle. Electronically Signed: David Ramirez MD at 9:59 EDT , Rhythm Strip Rhythm Strip: Sinus Rhythm Rate: 81 Ectopy: None Physical Exam Narrative Patient is still having cough mainly dry, fever, chills, shortness of breath mainly on exertion/dyspnea for 1 and half weeks. Patient is admitted. General: Alert, Oriented x3, Cooperative HEENT: Atraumatic, PERRLA, EOMI, Normocephalic Oral: No Gingival or Mucosal Lesions/ Ulcerations Neck: Supple, No JVD, Negative Carotid Bruits Lungs: Air entry diminished in bilateral lung bases. Bilateral coarse crepitations and wheezing. Pulse ox 94% on room air. Cardiovascular: Regular rate, Regular Rhythm, Normal S1, Normal S2, No murmurs Abdomen: Bowel Sounds Present, Soft, Non Tender, Non-Distended : No renal angle tenderness. No suprapubic tenderness. Extremities: No edema, Capillary Refill Less than 3 Seconds Skin: No rashes, No breakdown Musculoskeletal: No Tenderness to Palpation of Joints or Extremities Neurological: Cranial nerves II-XII grossly intact, DTR 2+/4 and Symmetrical, Neuro grossly intact Psych/Mental Status: Normal Affect, Appropriate. Assessment & Plan Assessment/Plan (1) Hypoxia: (2) Acute kidney injury: PLAN: The patient is a 76 y/o M with multiple comorbidities and 10 years of cigarette smoking, quit 50 years ago admitted with 1 and half week of cough, shortness of breath on exertion, fever 102 Fahrenheit at home and chills, fatigue consistent with pneumonia. #1. Acute bilateral viral pneumonia with superimposed bacterial infection with hypoxia: Patient is being admitted in PCU. Hypoxia has gotten better. COVID-19 PCR negative. Respiratory panel positive of human metapneumovirus. COVID and flu antigen rapid test negative. Inflammatory markers elevated including ferritin, LDH procalcitonin 0.34 mildly elevated at less than 2. Patient has not been vaccinated for COVID, pneumonia or influenza vaccine in the past. Patient does not want either. On IV ceftriaxone and Zithromax for high possibility of bacterial pneumonia he has indication of illnesses is about 10 days. Chest x-ray and CT individually reviewed. Chest CT shows bilateral lower lobes pneumonia with bilateral pleural effusion with underlying atelectasis more on the left side. Incentive spirometry and Pep for bronchopulmonary hygiene. #2. 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 Admitted with creatinine 3.17, more than 1.5 times therefore MAGGIE. Unclear about the cause of CKD probably cardiorenal disease. #3. Hyponatremia, suspect hypovolemic: Sodium 136 not significant improvement after IV fluid resuscitation. Discontinue IV fluid. #4. Hypokalemia: Admission K+ 2.8, potassium replaced pressure still low 3.0. Serum magnesium normal. No aggressive potassium replacement as patient creatinine clearance is about 25 mill per minute #5. 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 #6. Hypertension: Blood pressure in lower side. Continue amlodipine, holding chlorthalidone and lisinopril given MAGGIE, resume once appropriate, as needed IV hydralazine. #7. Anxiety and depression: continue patient home escitalopram regimen with alterations as needed given MAGGIE. #8. Former tobacco use: Encourage continued tobacco cessation. #9. DVT Prophylaxis: SCDs, heparin. #10. CODE status: Full code. Charges/Coding Visit Charges Inpatient E&M: 31844 Subs Hosp L2
[2021-09-22] MEDS: Benzonatate 100 MG Capsule 200 MG PO ×2 (14:35→22:15)
[2021-09-22 14:51] LABS: Phosphorus 3.1 mg/dL (2.5-4.9)
[2021-09-22 15:45] LABS: Bacteria 0 SEEN /hpf (None Seen); Mucous, Urine 0 SEEN /hpf (<or=2+); Red Blood Cells-Urine 0 SEEN /hpf (0-5); Squamous Epithelial Cells - UA 0 SEEN /hpf (0-5)
[2021-09-22 15:46] LABS: Color, Urine Yellow (Yellow); Glucose, Dipstick Normal (Normal); Ketone-Dipstick Negative (Negative); Leukocyte Esterase-Dipstick Negative /ul (Negative); Nitrite-Dipstick Negative (Negative); Occult Blood-Urine Negative /ul (Negative); Protein-Dipstick 15 mg/dl (Negative); Specific Gravity, Urine 1.015 (1.002-1.030); Urine Bilirubin Dipstick Negative (Negative); Urine Clarity Clear (Clear); Urine Urobilinogen Normal (Normal)
[2021-09-22] MEDS: guaiFENesin/D-Methorphan TAB.SR.12H 1 TABLET PO ×2 (15:49→23:00)
[2021-09-22 16:01] LABS: White Blood Cells 0-5 SEEN /hpf (0-5)
[2021-09-22] MEDS: Ceftriaxone 1 GM/50 ML BAG IV (23:15)
[2021-09-23] VITALS (7 sets, daily range): BP systolic 100–111; BP diastolic 63–68; PULSE 55–62; RESP 18; TEMP 36.6–36.8; O2SAT 89–96
[2021-09-23] MEDS: Benzonatate 100 MG Capsule 200 MG PO (06:10)
[2021-09-23 06:35] LABS: Absolute Lymphocyte Count 0.91 X10^3/uL (0.83-4.51); Absolute Neutrophil Count 8.9 X10^3/uL (2.0-7.7); Basophil# 0.04 X10^3/uL; Basophil% 0.4 % (0-1); Eosinophil# 0.09 X10^3/uL; Eosinophils% 0.8 % (0-5); Hematocrit 35.2 % (40-54); Hemoglobin 12.1 g/dL (13.0-16.5); Lymphocyte # 0.91 X10^3/ul (0.83-4.51); Lymphocyte % 8.5 % (19-41); Mean Corp Hgb Conc 34.4 g/dL (32-36); Mean Corpuscular Hgb 31.1 pg (27.0-32.0); Mean Corpuscular Volume 90.5 fL (80-94); Mean Platelet Vol. 9.2 fl (6.2-12.0); Monocyte# 0.66 X10^3/uL; Monocyte% 6.2 % (0-10); NRBC Flagged by Analyzer 0 % (0-5); Neutrophil # 8.85 X10^3/uL (2.7-7.7); Neutrophil % 82.6 % (47-70); Platelet Count 254 K/mm3 (150-450); RBC Distribution Width CV 12.5 % (11.6-14.6); RBC Distribution Width SD 41.1 fl (35.1-43.9); Red Blood Count 3.89 M/mm3 (4.6-6.2); White Blood Count 10.7 K/mm3 (4.4-11.0)
[2021-09-23 07:26] LABS: Anion Gap 5 (5-15); BUN 38 mg/dL (7-18); BUN/Creat Ratio 17.4 RATIO (10-20); Calcium,Total 8.3 mg/dL (8.5-10.1); Chloride 105 mmol/L (98-107); Creatinine, Serum 2.19 mg/dL (0.70-1.30); EST Glomerular Filtration Rate 31 mL/min (>60); Est Glom Filt Rate - Afr Amer 38 mL/min (>60); Estimated Creatinine Clearance 30.32 ml/min; Glucose 107 mg/dL (74-106); Potassium 3.1 mmol/L (3.5-5.1); Sodium Level 136 mmol/L (136-145)
--- NOTE | 2021-09-23 10:00 | DCINST_ITS ---
Discharge Instructions Diet Discharge Diet: No restrictions Activity Discharge Activity: Return to Normal Activity Weight Bearing Status: Weight bearing as tolerated Dressing / Incision Call your doctor if you observe: Fever of 101 or Higher, Coldness, Increased Pain, Numbness or Tingling, Change in Color, Inability to urinate, Inability to have a bowel movement, Shortness of breath, Dizziness, Fainting spells, Swelling in the ankles, Chest pain, Prolonged hiccupping, Increased palpitations (irregular heartbeat), Calf discomfort and Uncontrolled pain Follow Up Care Test Results: Test results from this visit will be discussed in further detail at your follow-up appointment, if applicable. Discharge Plan Admission Admit Date/Time: 09/21/21 17:33 Primary Reason for Your Visit: acute B/L Pneumonia Attending Provider: Donnie Frey Primary Care Provider: [facility],[place] Consulting Providers: Linda Falcon Instructions Additional Instructions / Restrictions: Discharge with Incentive spirometer and PEP and advised to continue for 7 days Discharge Orders/Prescriptions Prescriptions: New Mucinex DM 30-600 mg Tablet Extended Release 12 Hr 1 tab PO BID Qty: 14 RF: 0 levofloxacin 500 mg tablet 500 mg PO DAILY Qty: 5 RF: 0 Continued oxycodone 20 mg Tablet Extended Release 12 Hr 20 mg PO BID RF: 0 doxazosin 2 mg Tablet 4 mg PO QHS RF: 0 oxycodone 5 mg Tablet 10 mg PO DAILY@1500 RF: 0 chlorthalidone 25 mg Tablet 25 mg PO DAILY RF: 0 escitalopram oxalate 5 mg Tablet 10 mg PO DAILY RF: 0 fluticasone propionate 50 mcg/actuation [place],Suspension 1 spray INTRANASAL DAILY RF: 0 amlodipine 10 mg Tablet 10 mg PO DAILY 90 Days Qty: 90 RF: 0 cyanocobalamin (vitamin B-12) 1,000 mcg/mL Solution 1,000 mcg IM QMONTH RF: 0 loratadine 10 mg Tablet 10 mg PO DAILY RF: 0 aripiprazole 5 mg Tablet 2.5 mg PO DAILY RF: 0 cholecalciferol (vitamin D3) 75 mcg (3,000 unit) Tablet 75 mcg PO DAILY RF: 0 telotristat ethyl 250 mg Tablet 250 mg PO BID RF: 0 octreotide acetate 2,500 mcg/mL Pen Injector 2,500 mcg SUBCUT .[id number] RF: 0 Discontinued Guaiatussin 100 mg/5 mL Syrup 200 mg PO Q6H PRN (Reason: Congestion) RF: 0 [facility] - Within 1 Week Disposition Disposition (needs filled in before D/C Order can be placed): Home, Self Care
[2021-09-23] MEDS: oxyCODONE HCl Cr 10 MG Tablet 20 MG PO (10:06)
[2021-09-23] MEDS: guaiFENesin/D-Methorphan TAB.SR.12H 1 TABLET PO (10:07)
[2021-09-23] MEDS: Escitalopram Oxalate 10 MG Tablet PO (10:07)
[2021-09-23] MEDS: Fluticasone 0.05% 1 SPRAY NASAL.SRY NASAL (10:07)
[2021-09-23] MEDS: Heparin Injection (Vial) 5,000 UNIT/ML VIAL 5000 UNIT SC (10:07)
[2021-09-23] MEDS: Doxazosin 4 MG Tablet PO (10:07)
[2021-09-23] MEDS: Ceftriaxone 1 GM/50 ML BAG IV (11:18)
[2021-09-23] MEDS: 0.9% Saline Lock 10 ML Syringe IV (11:19)
--- NOTE | 2021-09-23 11:31 | PCM.DC.SUM ---
Providers Date of Admission: 09/21/21 Date of Discharge: 09/23/21 Primary Care Physician: [facility] Reason For Visit: HYPOXIA, SUSPECT ACUTE VIRAL SYNDROME, MAGGIE Diagnosis Discharge Diagnosis (1) Hypoxia: Status: Acute Code(s): R09.02 - Hypoxemia (2) Acute kidney injury: Status: Acute Code(s): N17.9 - Acute kidney failure, unspecified Medications at Discharge Home Medications chlorthalidone 25 mg PO DAILY 09/19/20 doxazosin 4 mg PO QHS 09/19/20 escitalopram oxalate 10 mg PO DAILY 09/19/20 fluticasone propionate 1 spray INTRANASAL DAILY 09/19/20 oxycodone 10 mg PO DAILY@1500 09/19/20 oxycodone 20 mg PO BID 09/19/20 amlodipine 10 mg PO DAILY 90 Days #90 tab 09/20/20 aripiprazole 2.5 mg PO DAILY 09/21/21 cholecalciferol (vitamin D3) 75 mcg PO DAILY 09/21/21 cyanocobalamin (vitamin B-12) 1,000 mcg IM QMONTH 09/21/21 loratadine 10 mg PO DAILY 09/21/21 octreotide acetate 2,500 mcg SUBCUT .[id number] 09/21/21 telotristat ethyl 250 mg PO BID 09/21/21 dextromethorphan-guaifenesin [Mucinex DM] 1 tab PO BID #14 tab 09/23/21 levofloxacin 500 mg PO DAILY #5 tab 09/23/21 Hospital Course Summary of Care Provided Hospital Course: The patient is a 76 y/o M with multiple comorbidities and 10 years of cigarette smoking, quit 50 years ago admitted with 1 and half week of cough, shortness of breath on exertion, fever 102 Fahrenheit at home and chills, fatigue consistent with pneumonia. #1. Acute bilateral viral pneumonia with superimposed bacterial infection with hypoxia: Patient is being admitted in PCU. Hypoxia has gotten better. COVID-19 PCR negative. Respiratory panel positive of human metapneumovirus. COVID and flu antigen rapid test negative. Inflammatory markers elevated including ferritin, LDH procalcitonin 0.34 mildly elevated at less than 2. Patient has not been vaccinated for COVID, pneumonia or influenza vaccine in the past. Patient does not want either. On IV ceftriaxone and Zithromax for high possibility of bacterial pneumonia he has indication of illnesses is about 10 days. Chest x-ray and CT individually reviewed. Chest CT shows bilateral lower lobes pneumonia with bilateral pleural effusion with underlying atelectasis more on the left side. Incentive spirometry and Pep for bronchopulmonary hygiene. 09/23: Patient symptoms of cough shortness of breath is much better. Hypoxia has resolved. Home qualification oxygen test ordered. Patient is discharged on Levaquin 500 mg every 48 hour total 3 tablets to complete total duration of antibiotic. Advised to continue incentive spirometry and chest physiotherapy at home. Prescription given for Levaquin and Mucinex D. #2. 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 Admitted with creatinine 3.17, more than 1.5 times therefore MAGGIE. Unclear about the cause of CKD probably cardiorenal disease. 09/23: MAGGIE resolved. Advised to hold chlorthalidone for 5 more days and repeat BMP in 1 week and follow with PCP. #3. Hyponatremia, suspect hypovolemic: Sodium 136 not significant improvement after IV fluid resuscitation. Discontinue IV fluid. #4. Hypokalemia: Admission K+ 2.8, potassium replaced pressure still low 3.0. Serum magnesium normal. No aggressive potassium replacement as patient creatinine clearance is about 25 mill per minute #5. 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 Patient on telotristat ETHYL antidiarrheal medication and octreotide for carcinoid tumor. #6. Hypertension: Blood pressure in lower side. Continue amlodipine, holding chlorthalidone and lisinopril given MAGGIE, resume once appropriate, as needed IV hydralazine. #7. Anxiety and depression: continue patient home escitalopram regimen with alterations as needed given MAGGIE. #8. Former tobacco use: Encourage continued tobacco cessation. #9. DVT Prophylaxis: SCDs, heparin. #10. CODE status: Full code. Discharge medication reconciliation done. Discharge follow-up instructions completed. Discharge process discussed with the patient and all questions were answered to patient's satisfaction. Patient is [employer] advised to follow-up with PCP Total time spent, exact 35 minutes on discharge meds reconciliation, examination, coordination of care with nurses and ancillary staff, review of imaging and blood test and discussion with the patient on follow-up instructions. Physical Exam Narrative Seen and examined. No fever or chills. Last fever was 202.8 on 09/21 at 6 PM. Patient's cough has gotten better. Comfortable and no shortness of breath on mild exertion. No dyspnea at rest. No hypoxia. General: Alert, Oriented x3, Cooperative HEENT: Atraumatic, PERRLA, EOMI, Normocephalic Oral: No Gingival or Mucosal Lesions/ Ulcerations Neck: Supple, No JVD, Negative Carotid Bruits Lungs: Air entry diminished in bilateral lung bases. Lungs clear. Pulse ox 94% on room air. Cardiovascular: Regular rate, Regular Rhythm, Normal S1, Normal S2, No murmurs Abdomen: Bowel Sounds Present, Soft, Non Tender, Non-Distended : No renal angle tenderness. No suprapubic tenderness. Extremities: No edema, Capillary Refill Less than 3 Seconds Skin: No rashes, No breakdown Musculoskeletal: No Tenderness to Palpation of Joints or Extremities Neurological: Cranial nerves II-XII grossly intact, DTR 2+/4 and Symmetrical, Neuro grossly intact Psych/Mental Status: Normal Affect, Appropriate. Weight / BMI Weight Weight: 164 lb 10.965 oz Body Mass Index (BMI) 22.4 ABG / Lab / Microbiology Data Result Diagrams: 09/23/21 06:20 09/23/21 06:20 Laboratory: Laboratory Results - last 24 hr 09/22/21 06:15: Phosphorus 3.1 09/22/21 15:35: Urine Color Yellow, Urine Clarity Clear, Urine pH 6.0, Ur Specific [place] 1.015, Urine Protein 15 H, Urine Glucose (UA) Normal, Urine Ketones Negative, Urine Occult Blood Negative, Urine Nitrite Negative, Urine Bilirubin Negative, Urine Urobilinogen Normal, Ur Leukocyte Esterase Negative, Urine RBC 0 SEEN, Urine WBC 0-5 SEEN, Ur Squamous Epith Cells 0 SEEN, Urine Bacteria 0 SEEN, Urine Mucus 0 SEEN 09/23/21 06:20: WBC 10.7, RBC 3.89 L, Hgb 12.1 L, Hct 35.2 L, MCV 90.5, MCH 31.1, MCHC 34.4, RDW Std Deviation 41.1, RDW Coeff of Gretel 12.5, Plt Count 254, MPV 9.2, Immature Gran % (Auto) 1.500 H, Neut % (Auto) 82.6 H, Lymph % (Auto) 8.5 L, [place] % (Auto) 6.2, Eos % (Auto) 0.8, Baso % (Auto) 0.4, Absolute Neuts (auto) 8.9 H, Absolute Lymphs (auto) 0.91, Nucleated RBC % 0 09/23/21 06:20: Sodium 136, Potassium 3.1 L, Chloride 105, Carbon Dioxide 26.0, Anion Gap 5, BUN 38 H, Creatinine 2.19 H, Estim Creat Clear Calc 30.32, Est GFR (MDRD) Af Amer 38 L, Est GFR (MDRD) Non-Af 31 L, BUN/Creatinine Ratio 17.4, Glucose 107 H, Calcium 8.3 L Microbiology: Microbiology 09/22/21 15:35 Urine, Clean Catch Legionella Antigen - Final 09/22/21 15:35 Urine, Clean Catch Streptococcus pneumoniae Antigen (M - Final 09/21/21 17:44 Mucosa - Nasopharyngeal Respiratory Panel (PCR) - Final Human [place] 09/21/21 16:25 Nasal Secretion SARS-CoV-2 & FLU Antigen (Rapid) - Final D/C Instructions Discharge Diet: No restrictions Weight Bearing Status: Weight bearing as tolerated Call your doctor if you observe: Fever of 101 or Higher, Coldness, Increased Pain, Numbness or Tingling, Change in Color, Inability to urinate, Inability to have a bowel movement, Shortness of breath, Dizziness, Fainting spells, Swelling in the ankles, Chest pain, Prolonged hiccupping, Increased palpitations (irregular heartbeat), Calf discomfort and Uncontrolled pain Meaningful Use Info Meaningful Use Diagnoses (Choose all that apply): None applicable Discharge Plan Admission Admit Date/Time: 09/21/21 17:33 Primary Reason for Your Visit: acute B/L Pneumonia Attending Provider: Donnie Frey Primary Care Provider: [facility],[place] Consulting Providers: Linda Falcon Instructions Additional Instructions / Restrictions: Discharge with Incentive spirometer and PEP and advised to continue for 7 days. Advised to hold chlorthalidone for 5 days and repeat BMP in 1 week and follow with PCP Discharge Orders/Prescriptions Prescriptions: New Mucinex DM 30-600 mg Tablet Extended Release 12 Hr 1 tab PO BID Qty: 14 RF: 0 levofloxacin 500 mg tablet 500 mg PO DAILY Qty: 5 RF: 0 Continued oxycodone 20 mg Tablet Extended Release 12 Hr 20 mg PO BID RF: 0 doxazosin 2 mg Tablet 4 mg PO QHS RF: 0 oxycodone 5 mg Tablet 10 mg PO DAILY@1500 RF: 0 escitalopram oxalate 5 mg Tablet 10 mg PO DAILY RF: 0 fluticasone propionate 50 mcg/actuation [place],Suspension 1 spray INTRANASAL DAILY RF: 0 amlodipine 10 mg Tablet 10 mg PO DAILY 90 Days Qty: 90 RF: 0 cyanocobalamin (vitamin B-12) 1,000 mcg/mL Solution 1,000 mcg IM QMONTH RF: 0 loratadine 10 mg Tablet 10 mg PO DAILY RF: 0 aripiprazole 5 mg Tablet 2.5 mg PO DAILY RF: 0 cholecalciferol (vitamin D3) 75 mcg (3,000 unit) Tablet 75 mcg PO DAILY RF: 0 telotristat ethyl 250 mg Tablet 250 mg PO BID RF: 0 octreotide acetate 2,500 mcg/mL Pen Injector 2,500 mcg SUBCUT .[id number] RF: 0 Held chlorthalidone 25 mg Tablet 25 mg PO DAILY RF: 0 Hold Instructions: Hold for 5 days for MAGGIE on CKD Discontinued Guaiatussin 100 mg/5 mL Syrup 200 mg PO Q6H PRN (Reason: Congestion) RF: 0 [facility] - Within 1 Week Disposition Disposition (needs filled in before D/C Order can be placed): Home, Self Care Charges/Coding Visit Charges Inpatient E&M: 20335 Disch Hosp
[2021-09-23] MEDS: Azithromycin 250 MG Tablet 500 MG PO (12:16)
[2021-09-23] MEDS: Potassium Chloride Oral Tablet 20 MEQ 40 MEQ PO (12:16)
--- NOTE | 2021-09-23 12:38 | NURSING ---
Pt educated on importance of getting RX anitibiotic. Pt said right now he does not want it as [facility] and [facility] mess. Pt instructed that he would not receive ATB from [place] today and the doctor instructed him to start it today. [facility] Rx notified to send to local pharmacy all rx and and pt can decide if they want to pick them up.
--- NOTE | 2021-09-23 13:00 | CASEMGMT ---
Addendum entered by Harry Chadwick 09/25/21 15:24: Received new fax # for [facility], as the prior # provided was incorrect. New fax #: [phone]. Demographic sheet and message faxed to [facility]/Nasim Hines NP to inform them HHC has been set up through [facility]. Call also placed to Jewel, nurse @ [facility], and VM left re: same. Addendum entered by Harry Chadwick 09/25/21 09:19: Addendum to conversation w/ on 09/23/21 re: HHC. agreeable to HHC being billed under [facility], [facility] of [facility]. This AM: Call placed to Valentine @ [facility]. She was made aware HHC to be billed under [facility]. She states they are able to accept pt for PT/OT. Original Note: RN CM NOTE: Pt being discharged home. PT/OT notes have been reviewed. Additional therapy recommended. RN CM to room to talk w/pt and and they were made aware of therapy recommendations. and pt agreeable to [facility] for therapy. states she is a nurse and does not feel SN needed. ?Provided with list of? [facility] providers including quality and resource use data and consistent with the patient's preferred geographic region, medical needs, and insurance network. ?The 's preferred provider is? [facility]. ? and pt made aware HHC could not be set up on the weekend, but an RN CM would f/u w/[facility] on Saturday re: referral. She voices understanding. Order placed for HHC: PT/OT. Discharge packet and summary faxed to [facility] re: new referral and made aware pt is discharging home today. Call placed to Tr[facility] seymour and spoke w/Celestina. She was made aware pt is discharging home today and aide service to resume Saturday. Discharge info faxed to Celestina at this time @ [phone]. Baron VELAZQUEZ RN, CM
--- NOTE | 2021-09-23 13:35 | NURSING ---
Reviewed charting with Kristine Drake RN
== END 2021-09-23 13:24 | disposition home or self-care (01) | DRG 194 ==
LOC: ED 18:15 → PCU 18:51
PROVIDERS: Admitting Provider Family Medicine; Emergency Provider Emergency Medicine; Visit Provider Internal Medicine
DX: J12.3 Human metapneumovirus pneumonia (principal); N17.9 Acute kidney failure, unspecified; C7A.098 Malignant carcinoid tumors of other sites; C7A.029 Malignant carcinoid tumor of the large intestine, unspecified portion; E87.1 Hypo-osmolality and hyponatremia; I12.9 Hypertensive chronic kidney disease with stage 1 through stage 4 chronic kidney disease, or unspecified chronic kidney disease; N18.32 Chronic kidney disease, stage 3b; J15.9 Unspecified bacterial pneumonia; Z20.822 Contact with and (suspected) exposure to COVID-19; E87.6 Hypokalemia; R09.02 Hypoxemia; F32.A Depression, unspecified; F41.9 Anxiety disorder, unspecified; Z86.16 Personal history of COVID-19; Z86.73 Personal history of transient ischemic attack (TIA), and cerebral infarction without residual deficits; Z87.891 Personal history of nicotine dependence
CPT/HCPCS: 36415; 71045; 71250; 80048; 80053; 81001; 82728; 83605; 83615; 83735; 83880; 84100; 84145; 84484; 85025; 85379; 85610; 85730; 86140; 87040; 87086; 87088; 87428; 87449; 87633; 87635; 93005; 97162; 97166; 99251; 99285; J7030; A4216; G0463; U0003; U0005

== ENCOUNTER 2021-11-13 12:01 | Emergency (ER) | payer OTHER, SELFPAY ==
[2021-11-13 12:01] VITALS: BP 117/72; PULSE 65; RESP 14; TEMP 36.8; O2SAT 97; BMI 22.4
--- NOTE | 2021-11-13 12:51 | VDLE_ITS ---
Reason For Study: swelling Procedure LEFT Exam performed portable in ED. GSV is normal. This is a venous duplex using B-mode, color CFV is compressible, spontaneous, phasic, flow and spectral Doppler. competent, and demonstrates normal The exam was abbreviated due to the COVID 19 augmentation. protocol. FV is compressible, spontaneous, phasic, The exam was diagnostic. competent and demonstrates normal A preliminary report was called and/or faxed augmentation. to Dr. Beltre. POP V is compressible, spontaneous, phasic, competent and demonstrates normal augmentation. T/P Trunk is compressible. PTV is compressible. LT PerV is compressible. VL/Venous Duplex US, Unilateral Interpretation Summary There is no evidence of left lower extremity deep vein thrombosis. Left great s aphenous vein appears patent and compressible segmentally. Abbreviated COVID-19 protocol utilized Ordering Physician: Troy Beltre Performed By: Arya Pinzon RVT
--- NOTE | 2021-11-13 12:52 | EDS_ITS ---
HPI History of Present Illness Chief Complaint: Lower Extremity Injury Informant: patient and spouse/S.O. Narrative Narrative: 76-year-old male presenting to the emergency department with left leg swelling. Patient states that for months he has had swelling of the left leg. It is better in the morning and by nighttime it is 2+ pitting edema according to his . He was given compression stockings before but has not worn them. He takes chlorthalidone and due to chronic diarrhea frequently battles dehydration. He is a former smoker. states that he called their primary care physician's office today was told to come to emergency to be checked for a blood clot. He is not having any pain in the leg. 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 Medical History Anxiety and depression Bilateral pneumonia Cancer Former smoker History of COVID-19 Hypertension Multiple metastatic carcinoid tumors Stroke/cerebrovascular accident Home Medications chlorthalidone 25 mg tablet 25 mg PO DAILY DIURETIC 09/19/20 [History Last Taken 09/21/21] doxazosin 2 mg tablet 4 mg PO QHS blood pressure 09/19/20 [History Last Taken 09/20/21] escitalopram oxalate 5 mg tablet 10 mg PO DAILY MOOD 09/19/20 [History Last Taken 09/20/21] fluticasone propionate 50 mcg/actuation nasal spray,suspension 1 spray intranasal DAILY ALLERGY 09/19/20 [History Last Taken 09/20/21] oxycodone 20 mg tablet,extended release,12 hr 20 mg PO BID pain 09/19/20 [History Last Taken 09/21/21] oxycodone 5 mg tablet 10 mg PO DAILY@1500 Check with primary doctor 09/19/20 [History Last Taken 09/21/21] amlodipine 10 mg tablet 10 mg PO DAILY 90 days #90 tabs 09/20/20 [Rx Last Taken 09/21/21] aripiprazole 5 mg tablet 2.5 mg PO DAILY MOOD 09/21/21 [History Last Taken 09/21/21] cholecalciferol (vitamin D3) 75 mcg (3,000 unit) tablet 75 mcg PO DAILY SUPPLEMENT 09/21/21 [History Last Taken 09/21/21] cyanocobalamin (vitamin B-12) 1,000 mcg/mL injection solution 1,000 mcg IM QMONTH Check with primary doctor 09/21/21 [History Last Taken 1 Month Ago ~08/22/21] loratadine 10 mg tablet 10 mg PO DAILY ALLERGIES 09/21/21 [History Last Taken 09/20/21] octreotide acetate 2,500 mcg/mL subcutaneous pen injector 2,500 mcg subcut .[id number] Check with primary doctor 09/21/21 [History Last Taken 09/19/21] telotristat ethyl 250 mg tablet 250 mg PO BID DIARREAH 09/21/21 [History Last Taken 09/21/21] dextromethorphan-guaifenesin 30 mg-600 mg tablet extended [id number] hr (Mucinex DM) 1 tab PO BID #14 tabs 09/23/21 [Rx Last Taken Unknown] levofloxacin 500 mg tablet 500 mg PO DAILY #5 tabs 09/23/21 [Rx Last Taken Unknown] Allergy/AdvReac Type Severity Reaction Status Date / Time amoxicillin Allergy Rash Verified 11/13/21 12:03 codeine AdvReac Nausea Verified 11/13/21 12:03 Family History Mother Heart disease Myocardial infarction CAD (coronary artery disease) Father COPD (chronic obstructive pulmonary disease) Surgical History H/O resection of small bowel History of appendectomy History of cholecystectomy S/P colectomy Social History household members: spouse Smoking Status: Former smoker how long ago did patient quit smoking: Patient smoked in the only and quit remotely. alcohol intake: never substance use type: does not use ROS ROS ED Constitutional Constitutional ED: Denies chills or weight loss Eyes Eyes: Denies change in vision or diplopia ENT ENT ED: Denies ear pain, rhinorrhea or sore throat Cardiovascular Cardiovascular: Denies chest pain, orthopnea, palpitations or racing heartbeat Respiratory/Chest Respiratory/Chest: Denies cough, dyspnea or orthopnea Gastrointestinal Gastrointestinal: Denies abdominal pain, diarrhea, nausea or vomiting Genitourinary Genitourinary ED: Denies dysuria, hematuria or urinary frequency Musculoskeletal Musculoskeletal: Reports other Details: See history of present illness ; Denies arthralgias or myalgias Integumentary Denies abscess or rash Neurologic Neurologic: Denies headache(s) or weakness Psychiatric Psychiatric: Denies anxiety, depression, suicidal ideation or suicidal thoughts Endocrine Endocrinology: Denies polydipsia, polyphagia or polyuria Allergic/Immunologic Allergic/Immunologic ED: Denies mouth swelling, tongue swelling or urticaria EXAM Physical Exam Const Vital Signs: 11/13/21 12:01 Temperature 98.2 F Temperature Source Temporal Pulse Rate 65 Respiratory Rate 14 Blood Pressure 117/72 Blood Pressure Mean 87 Pulse Ox 97 MDM MDM MDM Narrative Medical decision making narrative: I explained to them that I thought this was very low likelihood to be a DVT and more apt to be lymphedema. Duplex ultrasound was negative for DVT. Patient was encouraged to wear his compression stockings. Follow-up with primary care Discharge Plan Triage Chief Complaint: Lower Extremity Injury ED Provider: Troy Beltre Dx/Rx/DC Orders Clinical Impression: Lymphedema Instructions: ED Peripheral Edema, Unilateral Prescriptions: No Action oxycodone 20 mg Tablet Extended Release 12 Hr 20 mg PO BID doxazosin 2 mg Tablet 4 mg PO QHS oxycodone 5 mg Tablet 10 mg PO DAILY@1500 chlorthalidone 25 mg Tablet 25 mg PO DAILY Hold Instructions: Hold for 5 days for MAGGIE on CKD escitalopram oxalate 5 mg Tablet 10 mg PO DAILY fluticasone propionate 50 mcg/actuation [place],Suspension 1 spray INTRANASAL DAILY amlodipine 10 mg Tablet 10 mg PO DAILY 90 Days Qty: 90 0RF cyanocobalamin (vitamin B-12) 1,000 mcg/mL Solution 1,000 mcg IM QMONTH loratadine 10 mg Tablet 10 mg PO DAILY aripiprazole 5 mg Tablet 2.5 mg PO DAILY cholecalciferol (vitamin D3) 75 mcg (3,000 unit) Tablet 75 mcg PO DAILY telotristat ethyl 250 mg Tablet 250 mg PO BID octreotide acetate 2,500 mcg/mL Pen Injector 2,500 mcg SUBCUT .[id number] Mucinex DM 30-600 mg Tablet Extended Release 12 Hr 1 tab PO BID Qty: 14 0RF levofloxacin 500 mg tablet 500 mg PO DAILY Qty: 5 0RF [facility] [Primary Care Provider] - Activity Restrictions/Additional Instructions: I would recommend that you wear compression stockings on at the least the left leg. Disposition Disposition: Home, Self Care
[2021-11-13 13:38] VITALS: RESP 18
== END 2021-11-13 13:43 | disposition home or self-care (01) ==
LOC: ED 13:03
PROVIDERS: Emergency Provider Emergency Medicine; Visit Provider Emergency Medicine
DX: I89.0 Lymphedema, not elsewhere classified (principal); K52.9 Noninfective gastroenteritis and colitis, unspecified; I10 Essential (primary) hypertension; Z87.891 Personal history of nicotine dependence; Z86.16 Personal history of COVID-19; Z86.73 Personal history of transient ischemic attack (TIA), and cerebral infarction without residual deficits; F32.A Depression, unspecified; F41.9 Anxiety disorder, unspecified
CPT/HCPCS: 93971; 99282

== ENCOUNTER 2022-09-24 23:48 | Emergency (ER) | payer OTHER, SELFPAY ==
[2022-09-24 23:49] VITALS: BP 107/64; PULSE 87; RESP 16; TEMP 36.4; O2SAT 98; BMI 23.5
--- NOTE | 2022-09-25 00:07 | EX.ED.DYSGE1 ---
HPI History of Present Illness Chief Complaint: Abn Labs Narrative Narrative: 77-year-old male presenting with abnormal labs. He states he was called at 11 PM this evening and told to get to the emergency room because his potassium was low at 2.6. Patient reports that he did a bowel prep yesterday for a colonoscopy but then reports [facility] made an error and it was not done. He had lab work done today which she has done every 90 days and he states is just routine. He states his BMP showed that his potassium was low at 2.6. He does not have any symptoms of anything. He feels generally well. [facility] Medical History Anxiety and depression Bilateral pneumonia Cancer Former smoker History of COVID-19 Hypertension Multiple metastatic carcinoid tumors Stroke/cerebrovascular accident Home Medications chlorthalidone 25 mg tablet 25 mg PO DAILY DIURETIC 09/19/20 [History Last Taken 09/21/21] doxazosin 2 mg tablet 4 mg PO QHS blood pressure 09/19/20 [History Last Taken 09/20/21] escitalopram oxalate 5 mg tablet 10 mg PO DAILY MOOD 09/19/20 [History Last Taken 09/20/21] fluticasone propionate 50 mcg/actuation nasal spray,suspension 1 spray intranasal DAILY ALLERGY 09/19/20 [History Last Taken 09/20/21] oxycodone 20 mg tablet,extended release,12 hr 20 mg PO BID pain 09/19/20 [History Last Taken 09/21/21] oxycodone 5 mg tablet 10 mg PO DAILY@1500 Check with primary doctor 09/19/20 [History Last Taken 09/21/21] amlodipine 10 mg tablet 10 mg PO DAILY 90 days #90 tabs 09/20/20 [Rx Last Taken 09/21/21] aripiprazole 5 mg tablet 2.5 mg PO DAILY MOOD 09/21/21 [History Last Taken 09/21/21] cholecalciferol (vitamin D3) 75 mcg (3,000 unit) tablet 75 mcg PO DAILY SUPPLEMENT 09/21/21 [History Last Taken 09/21/21] cyanocobalamin (vitamin B-12) 1,000 mcg/mL injection solution 1,000 mcg IM QMONTH Check with primary doctor 09/21/21 [History Last Taken 1 Month Ago ~08/22/21] loratadine 10 mg tablet 10 mg PO DAILY ALLERGIES 09/21/21 [History Last Taken 09/20/21] octreotide acetate 2,500 mcg/mL subcutaneous pen injector 2,500 mcg subcut .[id number] Check with primary doctor 09/21/21 [History Last Taken 09/19/21] telotristat ethyl 250 mg tablet 250 mg PO BID DIARREAH 09/21/21 [History Last Taken 09/21/21] dextromethorphan-guaifenesin 30 mg-600 mg tablet extended [id number] hr (Mucinex DM) 1 tab PO BID #14 tabs 09/23/21 [Rx Last Taken Unknown] levofloxacin 500 mg tablet 500 mg PO DAILY #5 tabs 09/23/21 [Rx Last Taken Unknown] potassium chloride 20 mEq tablet,extended release 40 meq PO DAILY #1 TAB 09/25/22 [Rx Last Taken Unknown] Allergy/AdvReac Type Severity Reaction Status Date / Time amoxicillin Allergy Rash Verified 09/25/22 00:45 codeine AdvReac Nausea Verified 09/25/22 00:45 Family History Mother Heart disease Myocardial infarction CAD (coronary artery disease) Father COPD (chronic obstructive pulmonary disease) Surgical History H/O resection of small bowel History of appendectomy History of cholecystectomy S/P colectomy Social History household members: spouse Smoking Status: Former smoker how long ago did patient quit smoking: Patient smoked in the only and quit remotely. alcohol intake: never substance use type: does not use ROS ROS ED Constitutional Constitutional ED: Denies chills, fever(s) or sweats Eyes Eyes: Denies blurry vision or change in vision ENT ENT ED: Denies ear pain or sore throat Cardiovascular Cardiovascular: Denies chest pain, palpitations or racing heartbeat Respiratory/Chest Respiratory/Chest: Denies cough, dyspnea or sputum Gastrointestinal Gastrointestinal: Denies abdominal pain, constipation, diarrhea, nausea or vomiting Genitourinary Genitourinary ED: Denies dysuria, hematuria or urinary frequency Musculoskeletal Musculoskeletal: Denies arthralgias, myalgias or neck pain Integumentary Denies abscess, Abrasions or rash Neurologic Neurologic: Denies headache(s), paresthesias or weakness Psychiatric Psychiatric: Denies anxiety, depression, suicidal ideation or suicidal thoughts Endocrine Endocrinology: Denies polydipsia or polyuria EXAM Physical Exam Const Vital Signs: 09/24/22 23:49 09/25/22 00:45 09/25/22 04:07 Temperature 97.6 F L Temperature Source Temporal Pulse Rate 87 81 Respiratory Rate 16 15 Respiratory Effort Normal Respiratory Pattern Normal Blood Pressure 107/64 134/76 H Blood Pressure Mean 78 95 Pulse Ox 98 97 Oxygen Delivery Method Room Air Positive well nourished General Appearance ED: NAD HEENT Reports moist mucous membranes Eyes PERRL and EOMs intact bilaterally General Eye ED: Negative for pale conjunctiva or scleral icterus Neck no lymphadenopathy Resp normal respiratory effort and clear to auscultation bilaterally Auscultation: Negative for rales, rhonchi or wheezes Cardio regular rate and regular rhythm GI normal to inspection, nondistended, normoactive bowel sounds Neuro oriented x3 and CN's II-XII intact bilaterally Sensorium / Orientation: alert Psych mental status grossly normal Skin no rashes or lesions noted and no wounds MDM MDM MDM Narrative Medical decision making narrative: 77-year-old male presenting for low potassium. He has no symptoms at all. He feels well. He states he did do a bowel prep yesterday in order to get a colonoscopy today which he states including clinic mixed the appointment date and he did not have this. They did do blood work that showed his potassium. He was called at 11 PM this evening and told to come to the ER for potassium. Patient's potassium was 2.7 here. His magnesium is normal. CBC is normal. Creatinine at baseline. I ordered him 40 mill equivalents of p.o. potassium and ordered 40 mill equivalents of IV potassium. 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 He can follow-up with his primary care provider for repeat labs. Impression: 1. Hypokalemia Lab Data Attestation: I reviewed the patient's lab results. Labs: Laboratory Results - last 24 hr 09/25/22 09/25/22 00:17 00:17 WBC 7.3 RBC 4.42 L Hgb 13.8 Hct 40.8 MCV 92.3 MCH 31.2 MCHC 33.8 RDW Std Deviation 43.9 RDW Coeff of Gretel 13.0 Plt Count 193 MPV 9.6 Immature Gran % (Auto) 0.400 Neut % (Auto) 73.5 H Lymph % (Auto) 17.2 L [place] % (Auto) 5.1 Eos % (Auto) 3.0 Baso % (Auto) 0.8 Absolute Neuts (auto) 5.4 Absolute Lymphs (auto) 1.25 Nucleated RBC % 0 Sodium 146 H Potassium 2.7 L* Chloride 107 Carbon Dioxide 29.0 Anion Gap 10 BUN 27 H Creatinine 2.09 H Estim Creat Clear Calc 32.49 Est GFR (MDRD) Af Amer 40 L Est GFR (MDRD) Non-Af 33 L BUN/Creatinine Ratio 12.9 Glucose 164 H Calcium 8.4 L Magnesium 2.0 Discharge Plan Triage Chief Complaint: Abn Labs ED Provider: Michoacano Eastman Dx/Rx/DC Orders Instructions: ED Hypokalemia, ED Potassium-Rich Foods Prescriptions: New potassium chloride 20 mEq tablet extended release 40 meq PO DAILY Qty: 1 0RF No Action oxycodone 20 mg Tablet Extended Release 12 Hr 20 mg PO BID doxazosin 2 mg Tablet 4 mg PO QHS oxycodone 5 mg Tablet 10 mg PO DAILY@1500 chlorthalidone 25 mg Tablet 25 mg PO DAILY Hold Instructions: Hold for 5 days for MAGGIE on CKD escitalopram oxalate 5 mg Tablet 10 mg PO DAILY fluticasone propionate 50 mcg/actuation [place],Suspension 1 spray INTRANASAL DAILY amlodipine 10 mg Tablet 10 mg PO DAILY 90 Days Qty: 90 0RF cyanocobalamin (vitamin B-12) 1,000 mcg/mL Solution 1,000 mcg IM QMONTH loratadine 10 mg Tablet 10 mg PO DAILY aripiprazole 5 mg Tablet 2.5 mg PO DAILY cholecalciferol (vitamin D3) 75 mcg (3,000 unit) Tablet 75 mcg PO DAILY telotristat ethyl 250 mg Tablet 250 mg PO BID octreotide acetate 2,500 mcg/mL Pen Injector 2,500 mcg SUBCUT .[id number] Mucinex DM 30-600 mg Tablet Extended Release 12 Hr 1 tab PO BID Qty: 14 0RF levofloxacin 500 mg tablet 500 mg PO DAILY Qty: 5 0RF [facility] [Primary Care Provider] - Disposition Disposition: Home, Self Care
[2022-09-25 00:28] LABS: Absolute Lymphocyte Count 1.25 X10^3/uL (0.83-4.51); Absolute Neutrophil Count 5.4 X10^3/uL (2.0-7.7); Basophil# 0.06 X10^3/uL; Basophil% 0.8 % (0-1); Eosinophil# 0.22 X10^3/uL; Hematocrit 40.8 % (40-54); Hemoglobin 13.8 g/dL (13.0-16.5); Lymphocyte # 1.25 X10^3/ul (0.83-4.51); Lymphocyte % 17.2 % (19-41); Mean Corp Hgb Conc 33.8 g/dL (32-36); Mean Corpuscular Hgb 31.2 pg (27.0-32.0); Mean Corpuscular Volume 92.3 fL (80-94); Mean Platelet Vol. 9.6 fl (6.2-12.0); Monocyte# 0.37 X10^3/uL; Monocyte% 5.1 % (0-10); NRBC Flagged by Analyzer 0 % (0-5); Neutrophil # 5.35 X10^3/uL (2.7-7.7); Neutrophil % 73.5 % (47-70); Platelet Count 193 K/mm3 (150-450); RBC Distribution Width SD 43.9 fl (35.1-43.9); Red Blood Count 4.42 M/mm3 (4.6-6.2); White Blood Count 7.3 K/mm3 (4.4-11.0)
[2022-09-25 00:54] LABS: Anion Gap 10 (5-15); BUN 27 mg/dL (7-18); BUN/Creat Ratio 12.9 RATIO (10-20); Calcium,Total 8.4 mg/dL (8.5-10.1); Chloride 107 mmol/L (98-107); Creatinine, Serum 2.09 mg/dL (0.70-1.30); EST Glomerular Filtration Rate 33 mL/min (>60); Est Glom Filt Rate - Afr Amer 40 mL/min (>60); Estimated Creatinine Clearance 32.49 ml/min; Glucose 164 mg/dL (74-106); Potassium 2.7 mmol/L (3.5-5.1); Sodium Level 146 mmol/L (136-145)
[2022-09-25] MEDS: Potassium Chloride Oral Tablet 20 MEQ 40 MEQ PO (01:15)
[2022-09-25] MEDS: Potassium Chloride 10mEq/100mL 10 MEQ/100 ML IV.SOLN. 100 MEQ IV BOLUS ×4 (02:00→05:16)
[2022-09-25 04:07] VITALS: BP 134/76; PULSE 81; RESP 15; O2SAT 97
[2022-09-25 06:24] VITALS: BP 124/69; PULSE 72; RESP 15; O2SAT 98
== END 2022-09-25 06:25 | disposition home or self-care (01) ==
PROVIDERS: Emergency Provider Student in an Organized Health Care Education/Training Program; Visit Provider Student in an Organized Health Care Education/Training Program
DX: E87.6 Hypokalemia (principal); I10 Essential (primary) hypertension; Z87.891 Personal history of nicotine dependence
CPT/HCPCS: 80048; 83735; 85025; 99284; J7030; A4216

== ENCOUNTER 2024-09-20 13:52 | Inpatient (IN) | payer OTHER, SELFPAY ==
[2024-09-20] VITALS (11 sets, daily range): BP systolic 162–191; BP diastolic 74–93; PULSE 54–61; RESP 14–18; TEMP 36.4–36.6; O2SAT 95–99; BMI 29.2; BMI 22.5
--- NOTE | 2024-09-20 14:02 | EKG12_ITS ---
Test Reason : N/V Blood Pressure : */* mmHG Vent. Rate : 57 BPM Atrial Rate : * BPM P-R Int : * ms QRS Dur : 102 ms QT Int : 480 ms P-R-T Axes : * -59 85 degrees QTcB Int : 467 ms Junctional rhythm Left anterior fascicular block Abnormal ECG Confirmed by RUSS PIMENTEL, BLANCA ([id number]), tape editor ANA PEARSON ([id number]) on 09/21/2024 9:26:56 AM Referred By: Confirmed By: BLANCA SOLANO MD
--- NOTE | 2024-09-20 14:15 | CT_ITS ---
EXAM: CT Head Without Intravenous Contrast CLINICAL INDICATION: NEURO DEFICIT, ACUTE, STROKE SUSPECTED TECHNIQUE: Axial computed tomography images of the head/brain without intravenous contrast. This CT exam was performed using one or more of the following dose reduction techniques: automated exposure control, adjustment of the mA and/or kV according to patient size, and/or use of iterative reconstruction technique. COMPARISON: No relevant prior studies available. FINDINGS: BRAIN AND EXTRA-AXIAL SPACES: Areas of decreased attenuation in the deep cerebral white matter are consistent with small vessel ischemic/degenerative changes. No acute intracranial hemorrhage, midline shift or mass effect. If symptoms persist, further evaluation with MRI is recommended. The cerebral and cerebellar sulci are prominent consistent with brain atrophy. BONES/JOINTS: Unremarkable. No acute fracture. SOFT TISSUES: Unremarkable. SINUSES: Unremarkable as visualized. No acute sinusitis. MASTOID AIR CELLS: Unremarkable as visualized. No mastoid effusion. CT/STROKE Brain/Head without Cont IMPRESSION: 1. Small vessel ischemic/degenerative changes. 2. No acute intracranial hemorrhage, midline shift or mass effect. If symptoms persist, further evaluation with MRI is recommended. 3. Generalized brain atrophy. Reading Location: [id number]
--- NOTE | 2024-09-20 14:15 | CT_ITS ---
EXAM: CT Abdomen and Pelvis With Intravenous Contrast CLINICAL INDICATION: N/V TECHNIQUE: Axial computed tomography images of the abdomen and pelvis with intravenous contrast. This CT exam was performed using one or more of the following dose reduction techniques: automated exposure control, adjustment of the mA and/or kV according to patient size, and/or use of iterative reconstruction technique. COMPARISON: No relevant prior studies available. FINDINGS: LUNG BASES: Unremarkable. No mass. No consolidation. MEDIASTINUM: Mild esophageal hiatal hernia. ABDOMEN: LIVER: Fatty infiltration of the liver. GALLBLADDER AND BILE DUCTS: Unremarkable. No calcified stones. No ductal dilation. PANCREAS: Unremarkable. No mass. No ductal dilation. SPLEEN: Unremarkable. No splenomegaly. ADRENALS: Probable right adrenal adenoma. KIDNEYS AND URETERS: Right renal cysts. No hydronephrosis. STOMACH AND BOWEL: Fecal retention in the colon consistent with constipation. Colonic diverticulosis without acute diverticulitis. No obstruction. PELVIS: APPENDIX: No findings to suggest acute appendicitis. BLADDER: Unremarkable. No mass. REPRODUCTIVE: Unremarkable as visualized. ABDOMEN and PELVIS: INTRAPERITONEAL SPACE: Unremarkable. No free air. No significant fluid collection. BONES/JOINTS: No acute fracture. No dislocation. SOFT TISSUES: Unremarkable. VASCULATURE: Scattered calcified atherosclerotic disease of aorta. No abdominal aortic aneurysm. LYMPH NODES: Nonspecific lobulated isodense lesion in the pelvis measuring up to 3.4 cm. This could be enlarged lymph node. Neoplastic can not be excluded. Clinical correlation is recommended. CT/Abdomen/Pelvis W IV Cont ONLY IMPRESSION: 1. Nonspecific lobulated isodense lesion in the pelvis measuring up to 3.4 cm. This could be enlarged lymph node. Neoplastic can not be excluded. Clinical correlation is recommended. 2. Mild esophageal hiatal hernia. 3. Fecal retention in the colon consistent with constipation. 4. Colonic diverticulosis without acute diverticulitis. Reading Location: [id number]
--- NOTE | 2024-09-20 14:16 | CT_ITS ---
PROCEDURE: STROKE CTA HEAD AND NECK W/CON 09/20/2024 REASON FOR EXAM: NEURO DEFICIT, ACUTE, STROKE SUSPECTED TECHNIQUE: CTA imaging of the head and neck from the aortic arch to the skull vertex with out contrast and with intravenous contrast. Multiplanar and multisequence images were obtained. CONTRAST: Omnipaque 350 VOLUME: 100 mL Not Provided Gauge IV One or more dose reduction techniques were used (e.g., Automated exposure control, adjustment of the mA and/or kV according to patient size, use of iterative reconstruction technique). COMPARISON: None FINDINGS: Aortic Arch: Normal size and branching pattern. No significant atherosclerotic plaque. Brachiocephalic and Subclavians: Mild atherosclerotic plaque without significant stenosis. RIGHT Carotid: Right CCA: Mild calcified and soft plaque. Right ICA: Unremarkable. Maximum stenosis (NASCET): 0 % Right ECA: Unremarkable. LEFT Carotid: Left CCA: Mild calcified and soft plaque. Left ICA: Unremarkable. Maximum stenosis (NASCET): 0 % Left ECA: Unremarkable. Vertebrals: Codominant. Arise from the subclavians. Both vertebrals form the basilar. RIGHT Vertebral: Unremarkable. LEFT Vertebral: Unremarkable. Anatomy: [place] anatomy is normal. Aneurysm or avm: No intracranial aneurysms or large vascular malformations are identified. Anterior cerebral arteries: Unremarkable: Middle cerebral arteries: Mild atherosclerotic calcification of the bilateral carotid siphons without hemodynamically significant stenosis. The bilateral MCAs are otherwise within normal limits. Basilar artery: Unremarkable. Posterior cerebral arteries: Unremarkable. Other major branches of the posterior circulation: Unremarkable. Major venous structures: Unremarkable. Other findings: Neck: No lymphadenopathy. Lungs: Lung apices are clear. Bones: CT/STROKE CTA Head AND Neck W/Con IMPRESSION: Mild scattered atherosclerotic calcification of the anterior and posterior intr acranial and extracranial circulation without hemodynamically significant stenosis. Reading Location: [facility]
[2024-09-20 14:17] LABS: Absolute Lymphocyte Count 0.45 X10^3/uL (0.83-4.51); Absolute Neutrophil Count 14.1 X10^3/uL (2.0-7.7); Basophil# 0.05 X10^3/uL; Basophil% 0.3 % (0-1); Eosinophil# 0.01 X10^3/uL; Eosinophils% 0.1 % (0-5); Hemoglobin 15.8 g/dL (13.0-16.5); Lymphocyte # 0.45 X10^3/ul (0.83-4.51); Mean Corp Hgb Conc 33.6 g/dL (32-36); Mean Corpuscular Hgb 31.7 pg (27.0-32.0); Mean Corpuscular Volume 94.2 fL (80-94); Mean Platelet Vol. 8.9 fl (6.2-12.0); Monocyte# 0.49 X10^3/uL; Monocyte% 3.2 % (0-10); NRBC Flagged by Analyzer 0 % (0-5); Neutrophil # 14.14 X10^3/uL (2.7-7.7); Neutrophil % 92.9 % (47-70); POSITIVE DIFFERENTIAL YES; Platelet Count 213 K/mm3 (150-450); RBC Distribution Width CV 13.3 % (11.6-14.6); RBC Distribution Width SD 46.4 fl (35.1-43.9); Red Blood Count 4.99 M/mm3 (4.6-6.2); White Blood Count 15.2 K/mm3 (4.4-11.0)
[2024-09-20] MEDS: 0.9% Normal Saline (1000mL) 1,000 ML 999 ML IV ×2 (14:17→16:40)
[2024-09-20] MEDS: Ondansetron 4 MG/2 ML Vial IV (14:17)
--- NOTE | 2024-09-20 14:21 | EX.ED.DYSGE1 ---
HPI History of Present Illness Chief Complaint: Nausea/Vomiting Narrative Narrative: Patient is a 79-year-old male with past medical history of carcinoid tumor, CVA, hypertension, anxiety, depression who presents to the emergency department chief complaint dizziness nausea vomiting. According to the patient he went to bed around midnight last night with felt his normal self he states that he woke up this morning he stood up and was dizzy and states that he felt like he was spinning. He states he had difficulty walking to the bathroom he had to hold onto the side of the wall as well as his cane. He states he did fall but denies hitting his head he states that he is not on any blood thinning medications. Patient states that since his symptoms are getting better he came here for further evaluation management. [facility] Medical History Bilateral pneumonia History of COVID-19 Anxiety and depression Cancer Former smoker Hypertension Stroke/cerebrovascular accident Multiple metastatic carcinoid tumors Home Medications ?Medication ?Instructions ?Recorded ?Last Taken ?Type amlodipine 10 mg tablet 10 mg PO DAILY 90 days #90 tabs 09/20/20 09/20/24 Rx loratadine 10 mg tablet 10 mg PO DAILY ALLERGIES 09/21/21 09/20/21 History aspirin 81 mg tablet 81 mg PO DAILY 09/20/24 09/20/24 History colestipol 1 gram tablet 1 g PO BID 09/20/24 09/20/24 History escitalopram oxalate 10 mg tablet 10 mg PO DAILY 09/20/24 09/20/24 History levothyroxine 25 mcg tablet 25 mcg PO DAILY 09/20/24 09/19/24 History (Levo-T) loperamide 2 mg tablet (Diamode) 4 mg PO BID 09/20/24 09/20/24 History octreotide acetate 30 mg IM Q28D 09/20/24 Unknown History oxycodone-acetaminophen 5 mg-325 1 tab PO Q6H PRN pain 09/20/24 09/20/24 History mg tablet potassium chloride 20 mEq 20 meq PO DAILY 09/20/24 09/20/24 History tablet,extended release telotristat ethyl 250 mg tablet 250 mg PO TID 09/20/24 09/20/24 History (Xermelo) Allergy/AdvReac Type Severity Reaction Status Date / Time amoxicillin Allergy Rash Verified 09/20/24 13:53 codeine AdvReac Nausea Verified 09/20/24 13:53 Family History Mother Heart disease Myocardial infarction CAD (coronary artery disease) Father COPD (chronic obstructive pulmonary disease) Surgical History H/O resection of small bowel S/P colectomy History of appendectomy History of cholecystectomy Social History household members: spouse Smoking Status: Never smoker how long ago did patient quit smoking: Patient smoked in the only and quit remotely. 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 this is not new Cardiovascular: Denies chest pain or palpitations Respiratory: Denies coughing wheezing shortness of breath Abdomen: Complains of nausea vomiting as noted above denies abdominal pain : Denies any urinary symptoms Neurological: Complains of difficulty walking as noted above secondary to dizziness denies any tingling Musculoskeletal: Denies back pain Skin: Denies any rashes or lesions EXAM Physical Exam Narrative Exam Narrative: General: Patient lying in bed rest comfortably did not appear to be in acute distress Head: Atraumatic, normocephalic Eyes: PERRL bilaterally, EOMI bilaterally, no conjunctival injection noted Neck: Soft, supple, trachea midline Cardiovascular: Patient bradycardic with a regular rhythm no murmurs gallops rubs noted m Respiratory: Clear to auscultation bilaterally Abdomen: Soft, nondistended, nontender to palpation Extremities: +4/5 strength noted in the bilateral upper and lower extremities, radial pulses +2/4 in the bilateral extremities Neurological: Patient follow commands knew that he was at [facility] year is 2024. NIH is 0 GCS 15 Skin: Warm, dry, tact no rashes or lesions noted Const Vital Signs: 09/20/24 13:54 09/20/24 14:15 09/20/24 14:39 Temperature 97.6 F L Temperature Source Oral Pulse Rate 57 L 61 Respiratory Rate 14 16 Blood Pressure 191/93 H 174/77 H Blood Pressure Mean 125 109 Pulse Ox 96 96 96 Oxygen Delivery Method Room Air Room Air Room Air 09/20/24 14:45 09/20/24 15:15 09/20/24 15:58 Temperature Temperature Source Pulse Rate 58 L 58 L 54 L Respiratory Rate 16 16 16 Blood Pressure 178/80 H 162/84 H 162/86 H Blood Pressure Mean 112 110 111 Pulse Ox 96 96 95 Oxygen Delivery Method Room Air Room Air Room Air 09/20/24 17:12 Temperature Temperature Source Pulse Rate 56 L Respiratory Rate 16 Blood Pressure 164/78 H Blood Pressure Mean 106 Pulse Ox 95 Oxygen Delivery Method Room Air MDM MDM MDM Narrative Medical decision making narrative: Patient is a 79-year-old male who presented to the Emergency Department chief complaint of dizziness and nausea vomiting. On the differential diagnose includes but limited to intracranial hemorrhage, ischemic stroke, posterior circulation stroke, hemorrhagic stroke, carcinoid mets to the brain, electrolyte abnormality, UTI. Once workup is obtained and reviewed he will be reevaluated. Tetanus shot will be updated Patient is not a tenecteplase candidate as his last known well was midnight. Patient CBC was significant leukocytosis of 15,000, hemoglobin 15.8, platelet count was noted be normal at 213. Patient INR normal at 1, PT of 13.2. Patient sodium normal at 142, potassium was 4.6, creatinine was elevated 1.64 he has underlying chronic kidney disease. Patient's AST and ALT were 28 and 19 respectively. Patient's troponin was noted be 60 with a delta troponin obtained at 56. Patient's EKG reviewed showed bradycardia with a rate of 57 beats per minutes. Patient's lipase was elevated at 23. Patient's urinalysis reviewed showed no evidence of infection. Patient's chest x-ray reviewed by myself and by radiology which showed no acute findings. Patient CT head and brain without contrast showed small vessel ischemic/degenerative changes no acute intracranial hemorrhage midline shift or mass effect. Generalized brain atrophy. Patient's CT ab pelvis with IV contrast showed nonspecific lobulated isodense lesion in the pelvis measuring up to 3.4 centimeters this could be enlarged lymph node neoplastic cannot be excluded. Mild esophageal hiatal hernia. Fecal retention in the colon consistent with constipation colonic diverticulosis without Diverticulitis. Discussed case with intranet support Dr. Garcia and states that he does not believe that this is cardiac in nature. Patient was given 325 mg aspirin. Discussed case with neurologist Dr. Johnson who reviewed the images and states that the patient to be admitted to the hospital for further evaluation management of his dizziness and difficulty walking. Will discuss case with hospitalist for admission. Spoke with hospitalist Dr. Falcon who accept patient for admission. Notified the patient and significant other bedside they are agreeable to plan all question concerns answered. Lab Data Labs: Laboratory Results - last 24 hr 09/20/24 09/20/24 09/20/24 14:10 14:54 16:00 WBC 15.2 H RBC 4.99 Hgb 15.8 Hct 47.0 MCV 94.2 H MCH 31.7 MCHC 33.6 RDW Std Deviation 46.4 H RDW Coeff of Gretel 13.3 Plt Count 213 MPV 8.9 Immature Gran % (Auto) 0.500 Neut % (Auto) 92.9 H Lymph % (Auto) 3.0 L Forest % (Auto) 3.2 Eos % (Auto) 0.1 Baso % (Auto) 0.3 Absolute Neuts (auto) 14.1 H Absolute Lymphs (auto) 0.45 L Nucleated RBC % 0 PT 13.2 INR 1.0 APTT 27.0 Sodium 142 Potassium 4.6 Chloride 106 Carbon Dioxide 23.3 Anion Gap 12 BUN 22 H Creatinine 1.64 H Estim Creat Clear Calc 44.22 L Est GFR (MDRD) Non-Af 42 L BUN/Creatinine Ratio 13.6 Glucose 112 H Calcium 8.9 Total Bilirubin 0.47 AST 28 ALT 19 Alkaline Phosphatase 103 Troponin T High Sens 60 H* Troponin T Hi Sens 2 Hr Total Protein 7.4 Albumin 4.5 Globulin 2.9 Albumin/Globulin Ratio 1.6 Lipase 23 Urine Color Straw Urine Clarity Clear Urine pH 6.0 Ur Specific [place] 1.015 Urine Protein 30 H Urine Glucose (UA) Normal Urine Ketones Negative Urine Occult Blood 25 H Urine Nitrite Negative Urine Bilirubin Negative Urine Urobilinogen Normal Ur Leukocyte Esterase Negative Urine RBC 0 SEEN Urine WBC 0 SEEN Ur Squamous Epith Cells 0 SEEN Calcium Oxalate Crystal RARE Urine Bacteria 0 SEEN Fine Granular Casts 0-5 SEEN Urine Mucus 0 SEEN POC Glucose 96 09/20/24 16:10 WBC RBC Hgb Hct MCV MCH MCHC RDW Std Deviation RDW Coeff of Gretel Plt Count MPV Immature Gran % (Auto) Neut % (Auto) Lymph % (Auto) Forest % (Auto) Eos % (Auto) Baso % (Auto) Absolute Neuts (auto) Absolute Lymphs (auto) Nucleated RBC % PT INR APTT Sodium Potassium Chloride Carbon Dioxide Anion Gap BUN Creatinine Estim Creat Clear Calc Est GFR (MDRD) Non-Af BUN/Creatinine Ratio Glucose Calcium Total Bilirubin AST ALT Alkaline Phosphatase Troponin T High Sens Troponin T Hi Sens 2 Hr 56 H* Total Protein Albumin Globulin Albumin/Globulin Ratio Lipase Urine Color Urine Clarity Urine pH Ur Specific [place] Urine Protein Urine Glucose (UA) Urine Ketones Urine Occult Blood Urine Nitrite Urine Bilirubin Urine Urobilinogen Ur Leukocyte Esterase Urine RBC Urine WBC Ur Squamous Epith Cells Calcium Oxalate Crystal Urine Bacteria Fine Granular Casts Urine Mucus POC Glucose Radiography Diagnostic Testing: Clinical Impression(s) from Imaging Studies Abdomen/Pelvis CT 09/20/24 14:15 IMPRESSION: 1. Nonspecific lobulated isodense lesion in the pelvis measuring up to 3.4 cm. This could be enlarged lymph node. Neoplastic can not be excluded. Clinical correlation is recommended. 2. Mild esophageal hiatal hernia. 3. Fecal retention in the colon consistent with constipation. 4. Colonic diverticulosis without acute diverticulitis. Reading Location: [facility] Brain CT 09/20/24 14:15 IMPRESSION: 1. Small vessel ischemic/degenerative changes. 2. No acute intracranial hemorrhage, midline shift or mass effect. If symptoms persist, further evaluation with MRI is recommended. 3. Generalized brain atrophy. Reading Location: [facility] Head/Neck CTA 09/20/24 14:16 IMPRESSION: Mild scattered atherosclerotic calcification of the anterior and posterior intracranial and extracranial circulation without hemodynamically significant stenosis. Reading Location: [facility] Chest X-Ray 09/20/24 16:30 IMPRESSION: NO ACUTE FINDINGS. Reading [facility] Discharge Plan Dx/Rx/DC Orders Clinical Impression: Dizziness, Nausea & vomiting Disposition Disposition: Acute Care Hospital [facility] Discharge Date/Time: 09/20/24 18:38
[2024-09-20 14:34] LABS: Prothrombin Time (Protime)PT. 13.2 SECONDS (11.7-14.9)
[2024-09-20 14:38] LABS: ALB/GLOB Ratio 1.6 RATIO (0.9-2.4); AST(SGOT) 28 U/L (<=37); Alanine Aminotransfer ALT/SGPT 19 U/L (<=46); Albumin, Serum 4.5 g/dL (3.4-4.8); Alkaline Phosphatase 103 U/L (40-129); Anion Gap 12 (5-15); BUN 22 mg/dL (4-19); BUN/Creat Ratio 13.6 RATIO (10-20); Calcium,Total 8.9 mg/dL (7.6-11.0); Carbon Dioxide 23.3 mmol/L (21.0-32.0); Chloride 106 mmol/L (98-108); Creatinine, Serum 1.64 mg/dL (0.70-1.20); EST Glomerular Filtration Rate 42 (>60); Estimated Creatinine Clearance 44.22 ml/min (50-250); Globulin 2.9 g/dL (2.2-4.2); Glucose 112 mg/dL (70-99); Lipase 23 U/L (13-75); Potassium 4.6 mmol/L (3.3-5.1); Protein, Total 7.4 g/dL (5.9-8.4); Sodium Level 142 mmol/L (133-145); Total Bilirubin 0.47 mg/dL (0.00-1.30)
[2024-09-20 14:41] LABS: Troponin T High Sensitivity 60 ng/L (<=22)
[2024-09-20 15:12] LABS: Bedside Glucose 96 mg/dL (74-106)
[2024-09-20 16:20] LABS: Bacteria 0 SEEN /hpf (None Seen); Mucous, Urine 0 SEEN /hpf (<or=2+); Red Blood Cells-Urine 0 SEEN /hpf (0-5); Squamous Epithelial Cells - UA 0 SEEN /hpf (0-5); White Blood Cells 0 SEEN /hpf (0-5)
[2024-09-20] MEDS: Aspirin 325 MG Tablet PO (16:25)
[2024-09-20 16:28] LABS: Color, Urine Straw (Yellow); Glucose, Dipstick Normal (Normal); Ketone-Dipstick Negative (Negative); Leukocyte Esterase-Dipstick Negative /ul (Negative); Nitrite-Dipstick Negative (Negative); Occult Blood-Urine 25 /ul (Negative); Protein-Dipstick 30 mg/dl (Negative); Specific Gravity, Urine 1.015 (1.002-1.030); Urine Bilirubin Dipstick Negative (Negative); Urine Clarity Clear (Clear); Urine Urobilinogen Normal (Normal)
--- NOTE | 2024-09-20 16:30 | RAD_ITS ---
PROCEDURE: CHEST PA AND LATERAL 09/20/2024 REASON FOR EXAM: DIZZINESS TECHNIQUE: Frontal and lateral views of the chest. COMPARISON: CT chest 09/21/2021 FINDINGS: Hardware: None Heart: The heart size is normal. Mediastinum: The mediastinal contour is unremarkable. Lungs: Mild bibasilar atelectasis. No focal consolidation. No pneumothorax. No pleural effusion. Bones: Degenerative changes are identified within the thoracic spine. RAD/Chest PA and Lateral IMPRESSION: NO ACUTE FINDINGS. Reading Location: [facility]
[2024-09-20 16:44] LABS: Troponin T High Sens 2 HR 56 ng/L (<=22)
[2024-09-20 16:48] LABS: Calcium Oxalate Crystals Ur RARE /hpf (<or=2+); Fine Granular Cast- Urine 0-5 SEEN /lpf (0-5)
--- NOTE | 2024-09-20 18:07 | PCM.HP.STD ---
HPI - General General Date of Admission: 09/20/24 Date of Service: 09/20/24 Chief Complaint: Falls, LH/Dizziness, N/V. 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 He also reports since onset a generalized headache on the top of his head described as pressure-like sensation rated 4 out of 10 in severity with no light or sound sensitivity. He notes that currently seated in the ED his nausea and emesis are completely abated but when he attempts to move at all and get up he does not know which way is up or down and has onset of nausea with bouts of emesis. In the ED NIHSS assessment 0. Workup in the ED included T97.6, heart rate 57, BP 191/93, respiratory rate 14, 96% on room air, CBC with WBC 15.2, hemoglobin 15.8, platelet 213 with left shift and lymphopenia, CBC with WBC 15.2, hemoglobin 15.8, platelet 213 with left shift and lymphopenia, unremarkable coags, CMP with BUN/2022/1.64, GFR 42, glucose 112, hepatic profile not marked appearing, troponin 60 with repeat delta troponin 56, CT head with small vessel ischemic/degenerative changes with no acute intracranial findings with generalized brain atrophy, CTA head and neck with mild scattered atherosclerotic calcifications of the anterior and posterior intracranial extracranial circulation without any hemodynamically significant stenosis, CT abdomen and pelvis with IV contrast nonspecific lobulated isodense lesions in the pelvis measuring up to 3.4 cm likely consistent with his metastatic carcinoid tumors, mild esophageal hiatal hernia, some fecal retention in the colon consistent with constipation, colonic diverticulosis without acute diverticulitis, chest x-ray with no acute cardiopulmonary findings, EKG with sinus bradycardia with no acute evidence of. In the ED patient ministered 2 L normal saline, Zofran 4 mg IV x 1, tetanus update and full-strength aspirin therapy. ED discussed case also with on-call neurologist with stroke alert who recommended continued neurological evaluation to be cautious. [facility] Medical History Bilateral pneumonia History of COVID-19 Anxiety and depression Cancer Former smoker Hypertension Stroke/cerebrovascular accident Multiple metastatic carcinoid tumors Home Medications ?Medication ?Instructions ?Recorded ?Last Taken ?Type amlodipine 10 mg tablet 10 mg PO DAILY 90 days #90 tabs 09/20/20 09/20/24 Rx loratadine 10 mg tablet 10 mg PO DAILY ALLERGIES 09/21/21 09/20/21 History aspirin 81 mg tablet 81 mg PO DAILY 09/20/24 09/20/24 History colestipol 1 gram tablet 1 g PO BID 09/20/24 09/20/24 History escitalopram oxalate 10 mg tablet 10 mg PO DAILY 09/20/24 09/20/24 History levothyroxine 25 mcg tablet 25 mcg PO DAILY 09/20/24 09/19/24 History (Levo-T) loperamide 2 mg tablet (Diamode) 4 mg PO BID 09/20/24 09/20/24 History octreotide acetate 30 mg IM Q28D 09/20/24 Unknown History oxycodone-acetaminophen 5 mg-325 1 tab PO Q6H PRN pain 09/20/24 09/20/24 History mg tablet potassium chloride 20 mEq 20 meq PO DAILY 09/20/24 09/20/24 History tablet,extended release telotristat ethyl 250 mg tablet 250 mg PO TID 09/20/24 09/20/24 History (Xermelo) Allergy/AdvReac Type Severity Reaction Status Date / Time amoxicillin Allergy Rash Verified 09/20/24 13:53 codeine AdvReac Nausea Verified 09/20/24 13:53 Family History Mother Heart disease Myocardial infarction CAD (coronary artery disease) Father COPD (chronic obstructive pulmonary disease) Surgical History H/O resection of small bowel S/P colectomy History of appendectomy History of cholecystectomy Social History household members: spouse Smoking Status: Never smoker how long ago did patient quit smoking: Patient smoked in the only and quit remotely. alcohol intake: never substance use type: does not use ROS ROS Narrative Admission Review of Systems: CONSTITUTIONAL: No weight loss, fever, chills, + weakness or fatigue. HEENT: + Lightheadedness, dizziness, headache. Eyes: No visual loss, blurred vision, double vision or yellow sclerae. Ears, Nose, Throat: No hearing loss, sneezing, congestion, runny nose or sore throat. SKIN: No rash or itching, lesions, wounds. CARDIOVASCULAR: + Lightheadedness, dizziness. No chest pain, chest pressure or chest discomfort, palpitations, edema, orthopnea, syncopal events. RESPIRATORY: No marked dyspnea, cough, marked sputum production, wheezing, hemoptysis. GASTROINTESTINAL: + anorexia, chronic abdominal pain, chronic loose stools, bouts of nausea and emesis. No melena, BRBPR. GENITOURINARY: No dysuria, frequency, urgency or retention. NEUROLOGICAL: + Lightheadedness, dizziness, falls, headache. No paralysis, ataxia, numbness or tingling in the extremities, focal weakness, change in bowel or bladder control, seizure. MUSCULOSKELETAL: + muscle, back pain, joint pain or stiffness. HEMATOLOGIC: + anemia, easy bleeding/bruising. LYMPHATICS: No enlarged nodes. No history of splenectomy. PSYCHIATRIC: + history of depression and anxiety/mood disorder. ENDOCRINOLOGIC: No reports of sweating, cold or heat intolerance. No polyuria or polydipsia. ALLERGIES: + History of allergic rhinitis. Vital Signs Vital Signs Vital Signs: 09/20/24 13:54 09/20/24 14:15 09/20/24 14:39 Temperature 97.6 F L Temperature Source Oral Pulse Rate 57 L 61 Respiratory Rate 14 16 Blood Pressure 191/93 H 174/77 H Blood Pressure Mean 125 109 Pulse Ox 96 96 96 Oxygen Delivery Method Room Air Room Air Room Air 09/20/24 14:45 09/20/24 15:15 09/20/24 15:58 Temperature Temperature Source Pulse Rate 58 L 58 L 54 L Respiratory Rate 16 16 16 Blood Pressure 178/80 H 162/84 H 162/86 H Blood Pressure Mean 112 110 111 Pulse Ox 96 96 95 Oxygen Delivery Method Room Air Room Air Room Air 09/20/24 17:12 Temperature Temperature Source Pulse Rate 56 L Respiratory Rate 16 Blood Pressure 164/78 H Blood Pressure Mean 106 Pulse Ox 95 Oxygen Delivery Method Room Air Weight Weight: 215 lb 2.738 oz Body Mass Index (BMI) 29.2 Physical Exam Narrative Physical Examination: General: Awake, alert, oriented x 3 and cooperative, seated upright in the ED bed, fatigued, using a right sided hearing aid. Skin: Normal color, normal turgor, no icterus, no cyanosis Except occasional very stage ecchymoses, abrasions. HEENT: AT/NC, EOMI, PERRLA, mildly dry MM, endentulous, no carotid bruits or JVD noted. Lungs: Mildly diminished, greater bases, appropriate effort, no rales, ronchi or wheezing. Heart: Bradycardic with regular rhythm; no gallop, rub audible. Abdomen: Soft, NTTP, ND, mildly hyperactive BS, no markedly appreciated HSM. Extremities: No cyanosis, clubbing, or edema. Neurological: Patient awake, alert, oriented as noted, cognitive function intact; pupils equally reactive to light and accommodation, cranial nerves gross normal, moving all 4 extremities, no focal deficits, finger-nose and [id number] appropriate, equivocal Babinski, sensation intact. Psychiatric: Affect appears fatigued, no acute evidence of depressive or anxiety feelings. Results Lab / Micro Data 09/20/24 14:10 09/20/24 14:10 Labs: Laboratory Results - last 24 hr 09/20/24 14:10: WBC 15.2 H, RBC 4.99, Hgb 15.8, Hct 47.0, MCV 94.2 H, MCH 31.7, MCHC 33.6, RDW Std Deviation 46.4 H, RDW Coeff of Gretel 13.3, Plt Count 213, MPV 8.9, Immature Gran % (Auto) 0.500, Neut % (Auto) 92.9 H, Lymph % (Auto) 3.0 L, [place] % (Auto) 3.2, Eos % (Auto) 0.1, Baso % (Auto) 0.3, Absolute Neuts (auto) 14.1 H, Absolute Lymphs (auto) 0.45 L, Nucleated RBC % 0, PT 13.2, INR 1.0, APTT 27.0, Sodium 142, Potassium 4.6, Chloride 106, Carbon Dioxide 23.3, Anion Gap 12, BUN 22 H, Creatinine 1.64 H, Estim Creat Clear Calc 44.22 L, Est GFR (MDRD) Non-Af 42 L, BUN/Creatinine Ratio 13.6, Glucose 112 H, Calcium 8.9, Total Bilirubin 0.47, AST 28, ALT 19, Alkaline Phosphatase 103, Troponin T High Sens 60 H*, Total Protein 7.4, Albumin 4.5, Globulin 2.9, Albumin/Globulin Ratio 1.6, Lipase 23 09/20/24 14:54: POC Glucose 96 09/20/24 16:00: Urine Color Straw, Urine Clarity Clear, Urine pH 6.0, Ur Specific [place] 1.015, Urine Protein 30 H, Urine Glucose (UA) Normal, Urine Ketones Negative, Urine Occult Blood 25 H, Urine Nitrite Negative, Urine Bilirubin Negative, Urine Urobilinogen Normal, Ur Leukocyte Esterase Negative, Urine RBC 0 SEEN, Urine WBC 0 SEEN, Ur Squamous Epith Cells 0 SEEN, Calcium Oxalate Crystal RARE, Urine Bacteria 0 SEEN, Fine Granular Casts 0-5 SEEN, Urine Mucus 0 SEEN 09/20/24 16:10: Troponin T Hi Sens 2 Hr 56 H* Imaging Radiology Impression Abdomen/Pelvis CT 09/20/24 14:15 IMPRESSION: 1. Nonspecific lobulated isodense lesion in the pelvis measuring up to 3.4 cm. This could be enlarged lymph node. Neoplastic can not be excluded. Clinical correlation is recommended. 2. Mild esophageal hiatal hernia. 3. Fecal retention in the colon consistent with constipation. 4. Colonic diverticulosis without acute diverticulitis. Reading Location: [facility] Brain CT 09/20/24 14:15 IMPRESSION: 1. Small vessel ischemic/degenerative changes. 2. No acute intracranial hemorrhage, midline shift or mass effect. If symptoms persist, further evaluation with MRI is recommended. 3. Generalized brain atrophy. Reading Location: [facility] Head/Neck CTA 09/20/24 14:16 IMPRESSION: Mild scattered atherosclerotic calcification of the anterior and posterior intracranial and extracranial circulation without hemodynamically significant stenosis. Reading Location: [facility] Chest X-Ray 09/20/24 16:30 IMPRESSION: NO ACUTE FINDINGS. 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 #1. Intractable nausea, emesis, frequent falls with concern for vertigo with concern for possible posterior CVA with previous CVA history: Will admit to PCU, will obtain MRI Brain with and without contrast, ECHO, PT/OT/Speech/Nutrition evaluation per protocol. Will allow permissive HTN, maintain on asa, maintain on fall and aspiration precautions. Mag, TSH, FLP, HgbA1c requested. Maintain on fall and aspiration precautions. Continue neurology consultation. Given intractable nausea and emesis will initially maintain on clears with IV PPI and once clinically improving will advance diet. Certainly presentation could be confounded also by metastatic carcinoid tumors as noted below. #2. Elevated cardiac enzyme of unclear significance: Admission troponin 60 with repeat delta troponin 56, chest x-ray no acute cardiopulmonary finding, EKG with bradycardia with no acute evidence of ischemia, will maintain on a monitored bed to assure no acute myocardial infarction with serial cardiac enzymes and EKGs. Magnesium level requested. FLP in AM. ASA, NG. ED discussed case with on-call barrel roller operator Dr. Garcia, who recommended continued observation but no intervention or consultation needed at this time and felt it was likely noncardiac in nature. #3. 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 If intractable nausea and emesis are not abating there is no obvious neurological finding for the reason for the symptoms may require GI involvement given underlying cancer history. Continue patient home Xermelo regimen. Will also initiate patient octreotide 30 mg IM injection as it appears he was due 09/19/2024 and was not injected. #4. Chronic Kidney Disease Stage III, unclear subtype. GFR trending: Admission BUN/Cr 22/1.64, GFR 42, baseline renal function more recently primarily 1.8-2.1 but has vacillated, most recently previous 09/25/2022 creatinine 2.09, repeat BMP in AM. #5. Hypertension: Will maintain permissive hypertension given presentation with urine agents per stroke protocol. #6. Allergic rhinitis: Will continue patient home fluticasone and loratadine home regimen. #7. Mood disorder/anxiety and depression: Will continue patient home aripiprazole regimen as well as escitalopram, encourage continued outpatient follow-up as previously arranged. #8. Former tobacco use: Encourage continued tobacco cessation. #9. Obesity: Weight loss and lifestyle changes encouraged. #10. DVT prophylaxis: Lovenox. #11. CODE status: Patient YAMILET is his and living will is currently in place. Discussed CODE status at length including difference between FULL code, DNR-CCA and DNR-CC status. Following discussions about the differences in these status, requested Full Code status. Advanced Care Planning Face to Face Time: 16 minutes. Charges/Coding Visit Charges Inpatient E&M: 21233 Init Hosp L3 Procedures Hospitalists Procedures: 45450 Advncd Care Plan 30 Min
--- NOTE | 2024-09-20 18:40 | ECHOD_ITS ---
Reason For Study Reason For Study: TIA/CVA Procedure This was a 2D Doppler, Color Flow transthoracic echocardiogram. Exam performed portable in patient room. Left Ventricle Normal LV size. Mild concentric left ventricular hypertrophy. Left ventricular systolic function is normal. The left ventricular ejection fraction is 60 %. Stage 1 diastolic dysfunction. No regional wall motion abnormalities noted. Right Ventricle Normal RV size. Normal systolic function. Atria Normal left atrium. Normal right atrium. Mitral Valve Bileaflet diffuse mitral valve thickening. Mild (1+) eccentric mitral valve insufficiency. Tricuspid Valve Normal tricuspid valve. Mild (1+) tricuspid valve insufficiency. Pulmonary artery systolic pressure is 25 mmHg. Aortic Valve Trisinus/trileaflet aortic valve. Mild focal aortic valve calcification. Mild (1+) aortic valve insufficiency. Pulmonic Valve Normal pulmonic valve. Great Vessels Mildly calcified aortic root. The pulmonary artery is normal size. Inferior vena cava collapse with respiration. Pericardium/Pleural No pericardial effusion. MMode/2D Measurements & Calculations LVIDd: 4.1 cm IVSd: 1.3 cm LVOT diam: 2.1 cm LVIDs: 2.6 cm LVPWd: 1.2 cm LVOT area: 3.6 cm2 RVDd: 3.6 cm FS: 36.3 % LAV(MOD-bp): 37.9 ml LVAd ap4: 29.2 cm2 LVAd ap2: 27.4 cm2 LAV(MOD-bp) Indexed: 19.2 ml/m2 LVLd ap4: 9.1 cm LVLd ap2: 8.5 cm LAV(MOD-sp2): 39.5 ml EDV(MOD-sp4): 76.5 ml EDV(MOD-sp2): 72.8 ml LAV(MOD-sp4): 32.7 ml EDV(sp4-el): 79.5 ml EDV(sp2-el): 74.4 ml LVAs ap4: 14.8 cm2 LVAs ap2: 15.1 cm2 LVLs ap4: 7.7 cm LVLs ap2: 7.0 cm ESV(MOD-sp4): 24.7 ml ESV(MOD-sp2): 28.4 ml ESV(sp4-el): 24.2 ml ESV(sp2-el): 27.8 ml EF(MOD-sp4): 67.7 % EF(MOD-sp2): 60.9 % EF(sp4-el): 69.6 % SV(MOD-sp4): 51.8 ml SV(MOD-sp2): 44.3 ml SV(sp4-el): 55.3 ml SI(MOD-sp4): 26.3 ml/m2 SI(MOD-sp2): 22.5 ml/m2 Ao sinus diam: 3.[address] Junction: 3.0 cm LA A4 area: 12.5 cm2 LA dimension(2D): 4.2 cm TAPSE: 2.1 cm RA A4 area: 8.6 cm2 Time Measurements MV dec time: 0.26 sec Doppler Measurements & Calculations MV E max colton: 77.5 cm/sec Lat Peak E' Colton: 9.0 cm/sec Med Peak E' Colton: 8.2 cm/sec MV A max colton: 83.7 cm/sec E/E' lat: 8.6 E/E' med: 9.4 MV E/A: 0.93 MV dec slope: 301.0 cm/sec2 Ao V2 max: 122.5 cm/sec AI max colton: 357.9 cm/sec Ao max P.0 mmHg AI max P.2 mmHg Ao V2 mean: 82.0 cm/sec AI dec slope: 111.3 cm/sec2 Ao mean P.0 mmHg AI P1/2t: 941.6 msec Ao V2 VTI: 28.8 cm AV (velocity ratio): 0.85 LILIAM(I,D): 3.0 cm2 LILIAM(V,D): 2.6 cm2 LV V1 max: 88.1 cm/sec SV(LVOT): 87.0 ml PA V2 max: 104.2 cm/sec LV V1 max P.1 mmHg LV V1 mean P.7 mmHg LV V1 mean: 60.8 cm/sec LV V1 VTI: 24.5 cm TR max colton: 239.2 cm/sec TR max P.9 mmHg ECHO/Echo Complete Interpretation Summary Normal LV size. Mild concentric left ventricular hypertrophy. Left ventricular systolic function is normal. The left ventricular ejection fraction is 60 %. Stage 1 diastolic dysfunction. Ordering Physician: Linda Falcon Referring Physician: [facility] Performed By: Letha Elais RDCS
[2024-09-20 18:41] LABS: Magnesium 1.6 mg/dL (1.5-2.2); Phosphorus 2.7 mg/dL (2.7-4.5)
[2024-09-20 21:04] LABS: Troponin T High Sens 4 HR 58 ng/L (<=22)
[2024-09-20] MEDS: 0.9% Normal Saline (1000mL) 1,000 ML 100 ML IV (22:05)
[2024-09-20] MEDS: Pantoprazole Sodium 40 MG in 0.9% Normal Saline (100mL MB+) 100 ML 330 MG IV (22:09)
[2024-09-20] MEDS: Colestipol 1 GM TABLET PO (22:10)
[2024-09-21] VITALS (9 sets, daily range): BP systolic 132–182; BP diastolic 63–89; PULSE 45–56; RESP 16–18; TEMP 36.4–36.9; O2SAT 96–98; BMI 22.5; BMI 22.7
[2024-09-21] MEDS: Ondansetron 4 MG/2 ML Vial IV (02:25)
[2024-09-21 05:58] LABS: Absolute Lymphocyte Count 0.71 X10^3/uL (0.83-4.51); Basophil# 0.04 X10^3/uL; Basophil% 0.4 % (0-1); Eosinophil# 0.06 X10^3/uL; Eosinophils% 0.5 % (0-5); Hematocrit 40.1 % (40-54); Hemoglobin 13.6 g/dL (13.0-16.5); Lymphocyte # 0.71 X10^3/ul (0.83-4.51); Lymphocyte % 6.3 % (19-41); Mean Corp Hgb Conc 33.9 g/dL (32-36); Mean Corpuscular Hgb 31.9 pg (27.0-32.0); Mean Corpuscular Volume 93.9 fL (80-94); Mean Platelet Vol. 8.9 fl (6.2-12.0); Monocyte# 0.44 X10^3/uL; Monocyte% 3.9 % (0-10); NRBC Flagged by Analyzer 0 % (0-5); Neutrophil # 9.99 X10^3/uL (2.7-7.7); Neutrophil % 88.5 % (47-70); Platelet Count 188 K/mm3 (150-450); RBC Distribution Width CV 13.3 % (11.6-14.6); RBC Distribution Width SD 45.6 fl (35.1-43.9); Red Blood Count 4.27 M/mm3 (4.6-6.2); White Blood Count 11.3 K/mm3 (4.4-11.0)
[2024-09-21] MEDS: Levothyroxine 25 MCG TABLET PO (06:23)
[2024-09-21 06:51] LABS: ALB/GLOB Ratio 1.8 RATIO (0.9-2.4); AST(SGOT) 21 U/L (<=37); Alanine Aminotransfer ALT/SGPT 13 U/L (<=46); Albumin, Serum 3.7 g/dL (3.4-4.8); Alkaline Phosphatase 85 U/L (40-129); Anion Gap 10 (5-15); BUN 17 mg/dL (4-19); BUN/Creat Ratio 11.1 RATIO (10-20); Calcium,Total 8.2 mg/dL (7.6-11.0); Carbon Dioxide 20.5 mmol/L (21.0-32.0); Chloride 109 mmol/L (98-108); Cholesterol 175 mg/dL (<=200); Creatinine, Serum 1.49 mg/dL (0.70-1.20); EST Glomerular Filtration Rate 47 (>60); Estimated Creatinine Clearance 43.27 ml/min (50-250); Globulin 2.1 g/dL (2.2-4.2); Glucose 116 mg/dL (70-99); High Density Lipoprotein 61 mg/dL; Low Density Lipoprotein Calc. 91 mg/dL; Potassium 4.6 mmol/L (3.3-5.1); Protein, Total 5.9 g/dL (5.9-8.4); Sodium Level 140 mmol/L (133-145); Total Bilirubin 0.53 mg/dL (0.00-1.30); Triglycerides 117 mg/dL; Very Low Density Lipoprotein 23 mg/dL (5-40); cholesterol:hdl ratio screen 2.89
[2024-09-21 06:52] LABS: Hemoglobin A1c 5.5 % (<=5.6)
[2024-09-21] MEDS: Colestipol 1 GM TABLET PO ×2 (08:20→21:53)
[2024-09-21] MEDS: Enoxaparin 40 MG/0.4 ML Syringe SC (08:21)
[2024-09-21] MEDS: Escitalopram Oxalate 10 MG Tablet PO (08:21)
[2024-09-21] MEDS: Loratadine 10 MG Tablet PO (08:21)
[2024-09-21] MEDS: Aspirin 81 MG TAB.CHEW PO (08:21)
[2024-09-21] MEDS: Pantoprazole Sodium 40 MG in 0.9% Normal Saline (100mL MB+) 100 ML 330 MG IV ×2 (08:21→21:56)
--- NOTE | 2024-09-21 09:00 | MRI_ITS ---
PROCEDURE: BRAIN W/WO CONTRAST 09/21/2024 REASON FOR EXAM: TIA/CVA Dizziness. Unsteady gait. Nausea. TECHNIQUE: Routine brain MRI without and with intravenous contrast. Multiplanar and multisequence images were obtained. CONTRAST: Gadolinium VOLUME: 18 mL COMPARISON: CT head 09/20/2024 FINDINGS: Diffusion sequence demonstrates abnormal increased signal with corresponding decreased ADC signal within the right cerebellum measuring 46 mm by 33 mm consistent with acute nonhemorrhagic infarct. FLAIR and T2 sequences demonstrate increased signal at the right cerebellar site of acute infarct. Additionally there is [id number] increase signal in the branden, periventricular and subcortical white matter. Nonspecific, likely chronic small vessel ischemic change. Mild generalized atrophy. No MRI evidence of intracranial hemorrhage. No evidence of acute or chronic intraparenchymal hemorrhage. No mass effect. No midline shift. Following contrast administration, no enhancing lesions seen within the brain. MRI/Brain W/WO Contrast IMPRESSION: 1. Acute nonhemorrhagic infarct right cerebellum. 2. [id number] nonspecific chronic white matter changes, likely chronic s mall-vessel ischemic change. 3. Mild generalized atrophy. 4. No enhancing lesions Reading [facility]
--- NOTE | 2024-09-21 11:03 | CASEMGMT ---
Addendum entered by Harry Chadwick 09/21/24 11:34: Strata: 2 Original Note: RN CM SPIRAL BINDER CM to room to meet with patient for initial transition planning/care coordination assessment. MISHEL HAMMER introduced self and role at [facility]. Pt voices understanding and consents to assessment at this time. Pt sitting up in chair in no distress at this time. Pt is A/O at this time and answers all questions appropriately. Care providers, pharmacy, and demographics verified/updated at this time. PCP: [facility], DESTINI Hines. (PH: [phone]) Specialists: oncologist @ [facility], Dr Celis. PH: [phone], Ext: [phone]. Preferred Pharmacy: [facility] @ [place]. Otherwise, gets all medications from [facility]: [facility], [facility] A only Prescription Benefit: [facility] only LNOK: , Layne Orozco. Dtr, Isidra Living Arrangements: Lives w/his and 31-yr-old grand-daughter in 2-story home w/chair lift @ stairs. 2 steps to enter home. Pt able to do some ADL's on his own, assists as needed. manages home tasks. Pt does have aide services through the [facility] 2 days/wk for 4 hrs a day who assist pt w/bathing/dsg and meals. schedules her appts and errands on days they are coming to the home so someone is there to assist pt when she is away. MISHEL HAMMER did speak w/ on the phone who states she would like an additional day added to use when needed and asked MISHEL HAMMER to reach out to the [facility] to see if this is an option. Call placed to [facility] and left w/SW to inquire about this. Phone # provided on for this MISHEL HAMMER for today and MISHEL Robins CM, # if she calls back tomorrow. Transportation: Pt and both drive. DME: States has the following DME: chair lift for stairs, cane, walker, rollator. No home O2. states, if O2 is needed @ d/c, [facility]. Pt states no need for further DME at this time. HHC/SNF: No hx of SNF and has had HHC in the past. MISHEL HAMMER spoke w/ and pt about HHC or OP therapy. states to let pt make this decision. Pt declines wanting HHC or OP therapy at this time. He was made aware, if he changes his mind once returning home to f/u with PCP @ [facility]. He voices understanding. Pt wishes to return home and states has no concerns with going home at time of discharge. CM to follow for home oxygen needs and any further discharge planning/needs. Pt voices no further concerns/needs at this time. Advised pt to ask for CM if any further questions/concerns/needs arise. Voices understanding. PLAN: Home w/spousal support and aides through the [facility]. Follow for possible home O2. Baron VELAZQUEZ RN CM
--- NOTE | 2024-09-21 11:33 | STROKE.CONS ---
Assessment and Plan: Stroke Assessment/Plan ITZEL MORA, is a 79 year old right handed male ex-smoker with history of HTN and multiple metastatic carcinoid tumors, on Asa 81mg who presents with dizziness (vertigo) and nausea on 09/20/24. He reports he went to bed normal midnight 09/19/24 evening and awoke 09/20/24 with vertigo. He also noted unsteady gait and had to hold onto the harrison. He presented [facility]. CT brain negative for acute changes. CTA head/neck negative. He was admitted. MRI brain DWI shows acute right cerebellar infarct. LDL 91. HgbA1c 5.5. Neurological examination shows nonfocal exam. 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 2) Continue vascular risk factor modification. Recommend starting lipitor 40. 3) Complete stroke work-up with TTE and PT/OT consults. 4) If TTE negative, then inpatient stroke work-up completed and final recommendation is for medical management. Recommend outpatient Event monitor and follow-up in neurology clinic. Primary team messaged recs on backline. HPI Consult Data Date of Consult: 09/21/24 HPI Narrative HPI Narrative: ITZEL MORA, is a 79 year old right handed male ex-smoker with history of HTN and multiple metastatic carcinoid tumors, on Asa 81mg who presents with dizziness (vertigo) and nausea on 09/20/24. He reports he went to bed normal midnight 09/19/24 evening and awoke 09/20/24 with vertigo. He also noted unsteady gait and had to hold onto the harrison. He presented [place] [facility]. CT brain negative for acute changes. CTA head/neck negative. He was admitted. MRI brain DWI shows acute right cerebellar infarct. LDL 91. HgbA1c 5.5. Patient denies history of prior stroke. He has persistent symptoms. +N/V today. [facility] Medical History Bilateral pneumonia History of COVID-19 Anxiety and depression Cancer Former smoker Hypertension Stroke/cerebrovascular accident Multiple metastatic carcinoid tumors Home Medications ?Medication ?Instructions ?Recorded ?Last Taken ?Type amlodipine 10 mg tablet 10 mg PO DAILY Blood pressure 90 09/20/20 09/20/24 Rx days #90 tabs loratadine 10 mg tablet 10 mg PO DAILY ALLERGIES 09/21/21 09/20/21 History aspirin 81 mg tablet 81 mg PO DAILY heart health 09/20/24 09/20/24 History colestipol 1 gram tablet 1 g PO BID 09/20/24 09/20/24 History escitalopram oxalate 10 mg tablet 10 mg PO DAILY depression 09/20/24 09/20/24 History levothyroxine 25 mcg tablet 25 mcg PO DAILY thyroid 09/20/24 09/19/24 History (Levo-T) loperamide 2 mg tablet (Diamode) 4 mg PO BID 09/20/24 09/20/24 History octreotide acetate 30 mg IM Q28D 09/20/24 Unknown History oxycodone-acetaminophen 5 mg-325 1 tab PO Q6H PRN pain 09/20/24 09/20/24 History mg tablet potassium chloride 20 mEq 20 meq PO DAILY 09/20/24 09/20/24 History tablet,extended release telotristat ethyl 250 mg tablet 250 mg PO TID 09/20/24 09/20/24 History (Xermelo) Allergy/AdvReac Type Severity Reaction Status Date / Time amoxicillin Allergy Rash Verified 09/20/24 13:53 codeine AdvReac Nausea Verified 09/20/24 13:53 Family History Mother Heart disease Myocardial infarction CAD (coronary artery disease) Father COPD (chronic obstructive pulmonary disease) Surgical History H/O resection of small bowel S/P colectomy History of appendectomy History of cholecystectomy Social History household members: spouse Smoking Status: Never smoker how long ago did patient quit smoking: Patient smoked in the only and quit remotely. alcohol intake: never substance use type: does not use Vital Signs Vital Signs Vital Signs: 09/20/24 13:54 09/20/24 14:15 09/20/24 14:39 Temperature 97.6 F L Temperature Source Oral Pulse Rate 57 L 61 Pulse Strength Respiratory Rate 14 16 Respiratory Effort Respiratory Depth Respiratory Pattern Blood Pressure 191/93 H 174/77 H Blood Pressure Mean 125 109 Blood Pressure Source Blood Pressure Position Blood Pressure Location Pulse Ox 96 96 96 Oxygen Delivery Method Room Air Room Air Room Air 09/20/24 14:45 09/20/24 15:15 09/20/24 15:58 Temperature Temperature Source Pulse Rate 58 L 58 L 54 L Pulse Strength Respiratory Rate 16 16 16 Respiratory Effort Respiratory Depth Respiratory Pattern Blood Pressure 178/80 H 162/84 H 162/86 H Blood Pressure Mean 112 110 111 Blood Pressure Source Blood Pressure Position Blood Pressure Location Pulse Ox 96 96 95 Oxygen Delivery Method Room Air Room Air Room Air 09/20/24 17:12 09/20/24 18:37 09/20/24 18:49 Temperature 97.6 F L 97.8 F Temperature Source Oral Pulse Rate 56 L 56 L 54 L Pulse Strength Respiratory Rate 16 16 18 Respiratory Effort Respiratory Depth Respiratory Pattern Blood Pressure 164/78 H 176/84 H 164/74 H Blood Pressure Mean 106 114 104 Blood Pressure Source Monitor Blood Pressure Position Semi-Fowlers Blood Pressure Location Right Arm Pulse Ox 95 97 99 Oxygen Delivery Method Room Air Room Air 09/20/24 20:10 09/20/24 20:45 09/20/24 22:20 Temperature 97.7 F L Temperature Source Temporal Pulse Rate 55 L Pulse Strength Respiratory Rate 18 Respiratory Effort Normal Non-Labored Respiratory Depth Normal Respiratory Pattern Normal Blood Pressure 162/80 H Blood Pressure Mean 107 Blood Pressure Source Monitor Blood Pressure Position Semi-Fowlers Blood Pressure Location Right Arm Pulse Ox 96 98 Oxygen Delivery Method Room Air Room Air Room Air 09/20/24 22:20 09/21/24 02:20 09/21/24 02:25 Temperature 97.5 F L Temperature Source Temporal Pulse Rate 53 L Pulse Strength Normal (2+) Respiratory Rate 18 Respiratory Effort Normal Non-Labored Respiratory Depth Normal Respiratory Pattern Normal Blood Pressure 182/78 H Blood Pressure Mean 112 Blood Pressure Source Monitor Blood Pressure Position Semi-Fowlers Blood Pressure Location Right Arm Pulse Ox 98 Oxygen Delivery Method Room Air Room Air 09/21/24 06:18 09/21/24 07:55 09/21/24 08:00 Temperature 97.5 F L 97.7 F L Temperature Source Temporal Oral Pulse Rate 53 L 56 L Pulse Strength Normal (2+) Respiratory Rate 18 18 Respiratory Effort Respiratory Depth Respiratory Pattern Blood Pressure 173/82 H 171/78 H Blood Pressure Mean 112 109 Blood Pressure Source Monitor Blood Pressure Position Semi-Fowlers Blood Pressure Location Right Arm Pulse Ox 97 96 Oxygen Delivery Method Room Air Room Air 09/21/24 08:03 Temperature Temperature Source Pulse Rate Pulse Strength Respiratory Rate Respiratory Effort Normal Non-Labored Respiratory Depth Normal Respiratory Pattern Normal Blood Pressure Blood Pressure Mean Blood Pressure Source Blood Pressure Position Blood Pressure Location Pulse Ox Oxygen Delivery Method Room Air Weight Weight: 76.1 kg Body Mass Index (BMI) 22.7 Physical Exam Neuro Neuro Narrative: Neurological examination: General: The patient appears nutritionally appropriate, well-groomed, and appears comfortable in no acute distress. Mental Status: The patient?s mental status was normal including orientation. Language was intact. Cranial nerves: No visual complaints, and extra-ocular motion was intact. Face motion symmetric. Tongue was midline with normal movement. There was no dysarthria. Motor: Anti-gravity in all four extremities. No pronator drift. Sensation: Intact light touch bilaterally. Coordination: Bilateral finger to nose was normal. There was no dysmetria. Gait: deferred Lab / Micro Data 09/21/24 05:36 09/21/24 05:36 Labs: Laboratory Results - last 24 hr 09/20/24 14:10: WBC 15.2 H, RBC 4.99, Hgb 15.8, Hct 47.0, MCV 94.2 H, MCH 31.7, MCHC 33.6, RDW Std Deviation 46.4 H, RDW Coeff of Gretel 13.3, Plt Count 213, MPV 8.9, Immature Gran % (Auto) 0.500, Neut % (Auto) 92.9 H, Lymph % (Auto) 3.0 L, Carlton % (Auto) 3.2, Eos % (Auto) 0.1, Baso % (Auto) 0.3, Absolute Neuts (auto) 14.1 H, Absolute Lymphs (auto) 0.45 L, Nucleated RBC % 0, PT 13.2, INR 1.0, APTT 27.0, Sodium 142, Potassium 4.6, Chloride 106, Carbon Dioxide 23.3, Anion Gap 12, BUN 22 H, Creatinine 1.64 H, Estim Creat Clear Calc 44.22 L, Est GFR (MDRD) Non-Af 42 L, BUN/Creatinine Ratio 13.6, Glucose 112 H, Calcium 8.9, Total Bilirubin 0.47, AST 28, ALT 19, Alkaline Phosphatase 103, Troponin T High Sens 60 H*, Total Protein 7.4, Albumin 4.5, Globulin 2.9, Albumin/Globulin Ratio 1.6, Lipase 23 09/20/24 14:54: POC Glucose 96 09/20/24 16:00: Urine Color Straw, Urine Clarity Clear, Urine pH 6.0, Ur Specific [place] 1.015, Urine Protein 30 H, Urine Glucose (UA) Normal, Urine Ketones Negative, Urine Occult Blood 25 H, Urine Nitrite Negative, Urine Bilirubin Negative, Urine Urobilinogen Normal, Ur Leukocyte Esterase Negative, Urine RBC 0 SEEN, Urine WBC 0 SEEN, Ur Squamous Epith Cells 0 SEEN, Calcium Oxalate Crystal RARE, Urine Bacteria 0 SEEN, Fine Granular Casts 0-5 SEEN, Urine Mucus 0 SEEN 09/20/24 16:10: Phosphorus 2.7, Magnesium 1.6, Troponin T Hi Sens 2 Hr 56 H* 09/20/24 20:15: Troponin T Hi Sens 4Hr 58 H* 09/21/24 05:36: WBC 11.3 H, RBC 4.27 L, Hgb 13.6, Hct 40.1, MCV 93.9, MCH 31.9, MCHC 33.9, RDW Std Deviation 45.6 H, RDW Coeff of Gretel 13.3, Plt Count 188, MPV 8.9, Immature Gran % (Auto) 0.400, Neut % (Auto) 88.5 H, Lymph % (Auto) 6.3 L, Carlton % (Auto) 3.9, Eos % (Auto) 0.5, Baso % (Auto) 0.4, Absolute Neuts (auto) 10.0 H, Absolute Lymphs (auto) 0.71 L, Nucleated RBC % 0, Sodium 140, Potassium 4.6, Chloride 109 H, Carbon Dioxide 20.5 L, Anion Gap 10, BUN 17, Creatinine 1.49 H, Estim Creat Clear Calc 43.27 L, Est GFR (MDRD) Non-Af 47 L, BUN/Creatinine Ratio 11.1, Glucose 116 H, Hemoglobin A1c 5.5, Calcium 8.2, Total Bilirubin 0.53, AST 21, ALT 13, Alkaline Phosphatase 85, Total Protein 5.9, Albumin 3.7, Globulin 2.1 L, Albumin/Globulin Ratio 1.8, Triglycerides 117, Cholesterol 175, LDL Cholesterol, Calc 91, VLDL Cholesterol 23, HDL Cholesterol 61, Cholesterol/HDL Ratio 2.89, TSH 2.040 Imaging Radiology Impression Abdomen/Pelvis CT 09/20/24 14:15 IMPRESSION: 1. Nonspecific lobulated isodense lesion in the pelvis measuring up to 3.4 cm. This could be enlarged lymph node. Neoplastic can not be excluded. Clinical correlation is recommended. 2. Mild esophageal hiatal hernia. 3. Fecal retention in the colon consistent with constipation. 4. Colonic diverticulosis without acute diverticulitis. Reading Location: [facility] Brain CT 09/20/24 14:15 IMPRESSION: 1. Small vessel ischemic/degenerative changes. 2. No acute intracranial hemorrhage, midline shift or mass effect. If symptoms persist, further evaluation with MRI is recommended. 3. Generalized brain atrophy. Reading Location: [facility] Head/Neck CTA 09/20/24 14:16 IMPRESSION: Mild scattered atherosclerotic calcification of the anterior and posterior intracranial and extracranial circulation without hemodynamically significant stenosis. Reading Location[facility] Chest X-Ray 09/20/24 16:30 IMPRESSION: NO ACUTE FINDINGS. Reading Location[facility] Brain MRI 09/21/24 09:00 IMPRESSION: 1. Acute nonhemorrhagic infarct right cerebellum. 2. Plai-er-oaxxakxb nonspecific chronic white matter changes, likely chronic small-vessel ischemic change. 3. Mild generalized atrophy. 4. No enhancing lesions Reading Location: [facility] Active Medications Active Medications Active Medications: Current Medications Generic Name Dose Route Start Last Admin Trade Name Freq PRN Reason Stop Dose Admin Acetaminophen 650 mg 09/20/24 18:40 Acetaminophen 325 Mg Tablet PO Q4H PRN PRN Fever, pain 1-10/10 Al Hydroxide/Mg Hydroxide 30 ml 09/20/24 18:40 Mag Hydrox/Al Hydrox/Simeth 30 Ml Udc PO Q6H PRN PRN Gastric Burning Albuterol Sulfate 2.5 mg 09/20/24 18:40 Albuterol 2.5 Mg/3 Ml Vial.Neb. INHALATION Q2H PRN PRN Dyspnea, wheezing Amlodipine Besylate 10 mg 09/21/24 10:00 09/21/24 11:11 Amlodipine 10 Mg Tablet PO Not Given DAILY [facility] Protocol Aspirin 81 mg 09/21/24 08:00 09/21/24 08:21 Aspirin 81 Mg Tab.Chew PO 81 mg BREAKFAST MAYELA Administration Clarify Med Order 1 each 09/20/24 19:15 09/20/24 20:29 Clarify Order NOTE Not Given CLARIFY MAYELA Colestipol HCl 1 gm 09/20/24 22:00 09/21/24 08:20 Colestipol 1 Gm Tablet PO 1 gm BID MAYELA Administration Enoxaparin Sodium 40 mg 09/21/24 10:00 09/21/24 08:21 Enoxaparin 40 Mg/0.4 Ml Syringe SC 40 mg DAILY MAYELA Administration Escitalopram Oxalate 10 mg 09/21/24 10:00 09/21/24 08:21 Escitalopram Oxalate 10 Mg Tablet PO 10 mg DAILY MAYELA Administration Guaifenesin 20 ml 09/20/24 18:40 Guaifenesin 10 Ml Udc (200mg/10ml) PO Q4H PRN PRN COUGH Hydralazine HCl 5 mg 09/20/24 18:40 Hydralazine 20 Mg/Ml Vial IV 09/21/24 18:40 Q30M PRN maintain BP parameters with HR <60 Pantoprazole Sodium 40 mg/ 110 mls @ 330 mls/hr 09/20/24 18:40 09/21/24 09:28 Sodium Chloride IV Infused Q12 MAYELA Infusion Sodium Chloride 250 mls @ 15 mls/hr 09/20/24 18:41 IV .[id number] PRN Saline Flush Sodium Chloride 250 mls @ 15 mls/hr 09/20/24 18:41 IV .[id number] PRN Additional IVPB Infusion Labetalol HCl 10 - 20 mg 09/20/24 18:40 Labetalol 20 Mg/4 Ml Vial IV 09/21/24 18:40 Q10M PRN PRN maintain BP parameters with HR >/=60 Levothyroxine Sodium 25 mcg 09/21/24 06:00 09/21/24 06:23 Levothyroxine 25 Mcg Tablet PO 25 mcg DAILY@0600 MAYELA Administration Loperamide HCl 4 mg 09/21/24 10:00 Loperamide 2 Mg Capsule PO BID MAYELA Loratadine 10 mg 09/21/24 10:00 09/21/24 08:21 Loratadine 10 Mg Tablet PO 10 mg DAILY MAYELA Administration Lorazepam 0.5 mg 09/20/24 18:40 Lorazepam 0.5 Mg Tablet PO X1 PRN Anxiety with MRI Melatonin 3 mg 09/20/24 18:40 Melatonin 3 Mg Tablet PO QHS PRN PRN INSOMNIA Non-Formulary Medication 30 mg 09/20/24 18:40 Octreotide Acetate IM Q28D MAYELA Ondansetron HCl 4 mg 09/20/24 18:40 09/21/24 02:25 Ondansetron 4 Mg/2 Ml Vial IV 4 mg Q8H PRN PRN Administration NAUSEA/VOMITING Oxycodone HCl 5 mg 09/20/24 18:49 Oxycodone 5 Mg Tablet PO Q6H PRN pain 1-10 Prochlorperazine Edisylate 5 mg 09/20/24 18:40 Prochlorperazine 10 Mg/2 Ml Vial IV Q4H PRN PRN Breakthrough Nausea/Vomiting Sodium Chloride 10 - 40 ml 09/20/24 18:41 0.9% Saline Lock 10 Ml Syringe IV UD PRN SALINE FLUSH NIHSS NIHSS Nursing Documentation NIHSS Nursing Documentation: NIHSS: Ischemic Stroke/TIA Start: 09/20/24 18:40 Text: For PCU Patients: NIH and Neuro Check every 4 Status: Active hours, PRN and with change in RN caregiver. Freq: [id number] Protocol: Activity Type Activity Date Activity User E-sign Co-sign Detail Recorded Client Recorded Date Recorded By Document 09/21/24 08:00 pcu 09/21/24 08:02 09/21/24 08:00 NIH Stroke Scale [NIHSS] A score of 0 is normal or asymptomatic . Total possible score is 42. Inpatient: RN or Physician to activate a stroke alert for onset of new stroke symptoms or with NIHSS increase >/= 3 points. Following change in neurological status, NIHSS will be performed per physician order or more frequently PRN. -1a. Level of Consciousness 0 - Alert; keenly responsive -1b. LOC Questions 0 - Answers BOTH questions correctly -1c. LOC Commands 0 - Performs BOTH tasks correctly -2. Best Gaze 0 - Normal -3. Visual 0 - No visual loss -4. Facial Palsy 0 - Normal symmetrical movements -5a. Left Arm 0 - No drift; arm holds 90 ( or 45) degrees for full 10 seconds -5b. Right Arm 0 - No drift; arm holds 90 ( or 45) degrees for full 10 seconds -6a. Left Leg 0 - No drift; leg holds 30- degree position for full 5 seconds -6b. Right Leg 0 - No drift; leg holds 30- degree position for full 5 seconds -7. Limb Ataxia 0 - Absent -8. Sensory 0 - Normal; no sensory loss -9. Best Language 0 - No aphasia; normal -10. Dysarthria 0 - Normal -11. Extinction and Inattention 0 - No abnormality -Total 0 Query Text:A score of 0 is normal or asymptomatic. Total possible score is 42 . ED: Notify Physician for NIHSS increase by > / = 3 points. Inpatient: RN or Physician to activate a stroke alert for NIHSS increase of > / = 3 points. Coma Scale [Assess] -Eye Opening Spontaneous -Motor Obeys Commands -Verbal Oriented [Total] -Coma Scale Total 15 NIHSS 1a. Level of Consciousness: 0 - Alert; keenly responsive 1b. LOC Questions: 0 - Answers BOTH questions correctly 1c. LOC Commands: 0 - Performs BOTH tasks correctly 2. Best Gaze: 0 - Normal 3. Visual: 0 - No visual loss 4. Facial Palsy: 0 - Normal symmetrical movements 5a. Left Arm: 0 - No drift; arm holds 90 (or 45) degrees for full 10 seconds 5b. Right Arm: 0 - No drift; arm holds 90 (or 45) degrees for full 10 seconds 6a. Left Le - No drift; leg holds 30-degree position for full 5 seconds 6b. Right Le - No drift; leg holds 30-degree position for full 5 seconds 7. Limb Ataxia: 0 - Absent 8. Sensory: 0 - Normal; no sensory loss 9. Best Language: 0 - No aphasia; normal 10. Dysarthria: 0 - Normal 11. Extinction and Inattention: 0 - No abnormality Total: 0
--- NOTE | 2024-09-21 11:51 | CASEMGMT ---
Met with patient to complete RDZ form. RDZ form explained to patient who voiced understanding and signed form. Original form placed in pt?s chart and copy provided to patient. Chitra Nguyen, Discharge Planning Asst
--- NOTE | 2024-09-21 12:45 | PN.HOSP_ITS ---
Reason for Visit Reason for Visit: Nausea and vomiting /Dizziness Subjective Subjective Patient reports he typically does not have nausea and vomiting. This appears to be new. 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 Has had resection and follows at the [facility]. Was found to have an acute stroke and treatment ongoing. Biggest problem has been ongoing nausea and vomiting. Not able to eat much right now. Still some lightheadedness with position changes. NIH has been 0. Objective Data Objective Data Vital Signs: Vital Signs Temp Pulse Resp BP Pulse Ox O2 Del Method 97.7 F L 48 L 18 156/77 H 96 Room Air 09/21/24 11:40 09/21/24 11:40 09/21/24 11:40 09/21/24 11:40 09/21/24 11:40 09/21/24 11:40 Oxygen Delivery Method Room Air Weight: 76.1 kg Body Mass Index (BMI) 22.7 Intake & Output: Intake and Output for Last 24 Hours 09/19/24 09/20/24 09/21/24 23:59 23:59 23:59 Intake Total 2110 / 2110 1110 / 1110 Output Total 350 / 350 750 / 750 Balance 1760 / 1760 360 / 360 Lab / Micro Data 09/21/24 05:36 09/21/24 05:36 Labs: Laboratory Results - last 24 hr 09/20/24 14:10: WBC 15.2 H, RBC 4.99, Hgb 15.8, Hct 47.0, MCV 94.2 H, MCH 31.7, MCHC 33.6, RDW Std Deviation 46.4 H, RDW Coeff of Gretel 13.3, Plt Count 213, MPV 8.9, Immature Gran % (Auto) 0.500, Neut % (Auto) 92.9 H, Lymph % (Auto) 3.0 L, Allen % (Auto) 3.2, Eos % (Auto) 0.1, Baso % (Auto) 0.3, Absolute Neuts (auto) 14.1 H, Absolute Lymphs (auto) 0.45 L, Nucleated RBC % 0, PT 13.2, INR 1.0, APTT 27.0, Sodium 142, Potassium 4.6, Chloride 106, Carbon Dioxide 23.3, Anion Gap 12, BUN 22 H, Creatinine 1.64 H, Estim Creat Clear Calc 44.22 L, Est GFR (MDRD) Non-Af 42 L, BUN/Creatinine Ratio 13.6, Glucose 112 H, Calcium 8.9, Total Bilirubin 0.47, AST 28, ALT 19, Alkaline Phosphatase 103, Troponin T High Sens 60 H*, Total Protein 7.4, Albumin 4.5, Globulin 2.9, Albumin/Globulin Ratio 1.6, Lipase 23 09/20/24 14:54: POC Glucose 96 09/20/24 16:00: Urine Color Straw, Urine Clarity Clear, Urine pH 6.0, Ur Specific [place] 1.015, Urine Protein 30 H, Urine Glucose (UA) Normal, Urine Ketones Negative, Urine Occult Blood 25 H, Urine Nitrite Negative, Urine Bilirubin Negative, Urine Urobilinogen Normal, Ur Leukocyte Esterase Negative, Urine RBC 0 SEEN, Urine WBC 0 SEEN, Ur Squamous Epith Cells 0 SEEN, Calcium Oxalate Crystal RARE, Urine Bacteria 0 SEEN, Fine Granular Casts 0-5 SEEN, Urine Mucus 0 SEEN 09/20/24 16:10: Phosphorus 2.7, Magnesium 1.6, Troponin T Hi Sens 2 Hr 56 H* 09/20/24 20:15: Troponin T Hi Sens 4Hr 58 H* 09/21/24 05:36: WBC 11.3 H, RBC 4.27 L, Hgb 13.6, Hct 40.1, MCV 93.9, MCH 31.9, MCHC 33.9, RDW Std Deviation 45.6 H, RDW Coeff of Gretel 13.3, Plt Count 188, MPV 8.9, Immature Gran % (Auto) 0.400, Neut % (Auto) 88.5 H, Lymph % (Auto) 6.3 L, Allen % (Auto) 3.9, Eos % (Auto) 0.5, Baso % (Auto) 0.4, Absolute Neuts (auto) 10.0 H, Absolute Lymphs (auto) 0.71 L, Nucleated RBC % 0, Sodium 140, Potassium 4.6, Chloride 109 H, Carbon Dioxide 20.5 L, Anion Gap 10, BUN 17, Creatinine 1.49 H, Estim Creat Clear Calc 43.27 L, Est GFR (MDRD) Non-Af 47 L, BUN/Creatinine Ratio 11.1, Glucose 116 H, Hemoglobin A1c 5.5, Calcium 8.2, Total Bilirubin 0.53, AST 21, ALT 13, Alkaline Phosphatase 85, Total Protein 5.9, Albumin 3.7, Globulin 2.1 L, Albumin/Globulin Ratio 1.8, Triglycerides 117, Cholesterol 175, LDL Cholesterol, Calc 91, VLDL Cholesterol 23, HDL Cholesterol 61, Cholesterol/HDL Ratio 2.89, TSH 2.040 Radiography Diagnostic Testing: Radiology Impression Abdomen/Pelvis CT 09/20/24 14:15 IMPRESSION: 1. Nonspecific lobulated isodense lesion in the pelvis measuring up to 3.4 cm. This could be enlarged lymph node. Neoplastic can not be excluded. Clinical correlation is recommended. 2. Mild esophageal hiatal hernia. 3. Fecal retention in the colon consistent with constipation. 4. Colonic diverticulosis without acute diverticulitis. Reading Location: [facility] Brain CT 09/20/24 14:15 IMPRESSION: 1. Small vessel ischemic/degenerative changes. 2. No acute intracranial hemorrhage, midline shift or mass effect. If symptoms persist, further evaluation with MRI is recommended. 3. Generalized brain atrophy. Reading Location: [facility] Head/Neck CTA 09/20/24 14:16 IMPRESSION: Mild scattered atherosclerotic calcification of the anterior and posterior intracranial and extracranial circulation without hemodynamically significant stenosis. Reading Location: [facility] Chest X-Ray 09/20/24 16:30 IMPRESSION: NO ACUTE FINDINGS. Reading Location: [facility] Brain MRI 09/21/24 09:00 IMPRESSION: 1. Acute nonhemorrhagic infarct right cerebellum. 2. [id number] nonspecific chronic white matter changes, likely chronic small-vessel ischemic change. 3. Mild generalized atrophy. 4. No enhancing lesions Reading Location: [facility] Physical Exam Const alert, oriented x3, no apparent distress and average body habitus; Negative for healthy appearing or well nourished Constitutional Narrative: Thin, older, white male, sitting up in bed, appears comfortable currently, does not appear toxic but does not appear well, looks to be somewhat malnourished HEENT head/scalp atraumatic and moist oral mucous membranes HEENT Narrative: Temporal wasting bilateral Head and Scalp: normocephalic Neck supple Neck Narrative: Trachea midline Resp normal respiratory effort, no retractions, no use of accessory muscles and clear to auscultation bilaterally Auscultation: Negative for rales, rhonchi or wheezes Cardio regular rate, regular rhythm, S1 normal heart sound, S2 normal heart sound, no murmurs, no rub, no gallops and no clicks GI soft to palpation GI Narrative: Scaphoid abdomen, bowel sounds are hypoactive, no significant distention, diffuse tenderness noted with no point tenderness Extremity no clubbing, cyanosis or edema Extremity Narrative: Decreased lean muscle mass Neuro oriented x3, moves all extremities and no focal motor deficits Speech: speech normal Psych Psych Narrative: Affect is slightly flat but patient makes good eye contact and interacts appropriately Assessment & Plan Assessment/Plan (1) Dizziness: (2) Cerebellar stroke: (3) Nausea & vomiting: PLAN: Plan Dizziness secondary to right acute cerebellar ischemic stroke -MRI done today shows acute right cerebellar infarct - Continue aspirin 81 mg daily - Start Lipitor 40 mg daily - Echocardiogram done and shows an EF of 60% with stage I diastolic dysfunction no significant valvular abnormalities, mild concentric LVH -Current NIH is 0 - Continue to hold antihypertensives and restart tomorrow as long as patient remains asymptomatic and blood pressure will tolerate - Will check orthostatic vitals in a.m. - LDL in no therapy is 91 with goal less than 70 - A1c was 5.5 -Will need outpatient neurology follow-up and event monitor at discharge - Neurology was consulted and recommendations given Nausea and vomiting/constipation - CT shows some constipation - On review of the CT there does appear to be air-fluid levels in the stomach and proximal small bowel - Start scopolamine patch - Continue IV therapy - Will give Reglan 5 mg IV x 3 doses - Continue clear liquid diet but no advancement till nausea improves - May need repeat CT versus consultation with GI if does not clinically improve - Hold home antidiarrheal medication due to constipation noted on CT Elevated troponin - Initial troponin 60 with a delta of 56 - EKG shows no signs of ischemia - Echocardiogram with no wall motion abnormalities - Cardiology was curb sided and recommended observation with no intervention unless significant abnormalities noted on imaging - Suspect related to dehydration 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 Celis - Nausea vomiting does not appear to be related to his chemo as this is not new agent - Continue home regimen CKD of unknown type - Serum creatinine is down from admission from 0.64-1.49 - Has been as high as 3.17 previously in 2021 - Continue to monitor - IV fluids as ordered Hypothyroidism - TSH 2.040 - cont levothyroxine Essential hypertension - Hold home antihypertensives - Consider reinitiating tomorrow Allergic rhinitis - Continue home loratadine and fluticasone Mood disorder/anxiety/depression - Continue home aripiprazole - Continue Lexapro History of tobacco abuse - Ongoing cessation DVT prophylaxis - Continue subcu Lovenox CODE STATUS - Full code per discussion at admission updated on at 7:55 PM on 09/21/2024. Charges/Coding Visit Charges Inpatient E&M: 44704 Subs Hosp L2 NIHSS NIHSS Nursing Documentation NIHSS Nursing Documentation: NIHSS: Ischemic Stroke/TIA Start: 09/20/24 18:40 Text: For PCU Patients: NIH and Neuro Check every 4 Status: Active hours, PRN and with change in RN caregiver. Freq: [id number] Protocol: Activity Type Activity Date Activity User E-sign Co-sign Detail Recorded Client Recorded Date Recorded By Document 09/21/24 11:40 pcu 09/21/24 11:49 09/21/24 11:40 NIH Stroke Scale [NIHSS] A score of 0 is normal or asymptomatic . Total possible score is 42. Inpatient: RN or Physician to activate a stroke alert for onset of new stroke symptoms or with NIHSS increase >/= 3 points. Following change in neurological status, NIHSS will be performed per physician order or more frequently PRN. -1a. Level of Consciousness 0 - Alert; keenly responsive -1b. LOC Questions 0 - Answers BOTH questions correctly -1c. LOC Commands 0 - Performs BOTH tasks correctly -2. Best Gaze 0 - Normal -3. Visual 0 - No visual loss -4. Facial Palsy 0 - Normal symmetrical movements -5a. Left Arm 0 - No drift; arm holds 90 ( or 45) degrees for full 10 seconds -5b. Right Arm 0 - No drift; arm holds 90 ( or 45) degrees for full 10 seconds -6a. Left Leg 0 - No drift; leg holds 30- degree position for full 5 seconds -6b. Right Leg 0 - No drift; leg holds 30- degree position for full 5 seconds -7. Limb Ataxia 0 - Absent -8. Sensory 0 - Normal; no sensory loss -9. Best Language 0 - No aphasia; normal -10. Dysarthria 0 - Normal -11. Extinction and Inattention 0 - No abnormality -Total 0 Query Text:A score of 0 is normal or asymptomatic. Total possible score is 42 . ED: Notify Physician for NIHSS increase by > / = 3 points. Inpatient: RN or Physician to activate a stroke alert for NIHSS increase of > / = 3 points. Coma Scale [Assess] -Eye Opening Spontaneous -Motor Obeys Commands -Verbal Oriented [Total] -Coma Scale Total 15
--- NOTE | 2024-09-21 14:09 | CHAPLAIN ---
Type of Pastoral Visit _x__ Initial Visit ___ Follow-up Visit ___ On-call Visit ___ General Patient Visit ___ Spiritual Assessment ___ Family Conference ___ Bereavement ___ Rapid Response ___ Code Blue ___ Other (describe below) Pastoral Care Referral From _x__ Patient ___ Family ___ Nurse ___ Physician ___ Client Services Administrator ___ Licensed Physical Therapist Assistant ___ Other (describe below) Sacrament/Intervention _x__ Active listening ___ Anointing ___ Congregational ___ Bereavement ___ Communion ___ Ayana exploration ___ ___ Life review _x__ Prayer ___ Reconciliation ___ Sacrament of Sick _x__ Supportive presence ___ Wedding ___ Other (describe below) Pastoral Comments Patient is honest about his feelings and fears; pt has not been in this situation before and wonders how he can handle his home life with and his everyday experience; listening skills used and other resources
[2024-09-21] MEDS: 0.9% Normal Saline (1000mL) 1,000 ML 100 ML IV (17:09)
[2024-09-21] MEDS: Metoclopramide 10 MG/2 ML Vial 5 MG IV ×2 (17:09→21:52)
[2024-09-21] MEDS: Scopolamine 1mg/72hr Patch 1 PATCH TD (18:15)
[2024-09-21] MEDS: oxyCODONE 5 MG Tablet PO (20:15)
[2024-09-21] MEDS: Atorvastatin Calcium 40 MG Tablet PO (21:54)
[2024-09-22] VITALS (11 sets, daily range): BP systolic 135–184; BP diastolic 56–90; PULSE 40–50; RESP 18; TEMP 36.6–37.1; O2SAT 94–99; BMI 22.7
[2024-09-22] MEDS: 0.9% Normal Saline (1000mL) 1,000 ML 100 ML IV (03:57)
[2024-09-22] MEDS: Metoclopramide 10 MG/2 ML Vial 5 MG IV ×2 (05:49→14:08)
[2024-09-22] MEDS: Levothyroxine 25 MCG TABLET PO (05:49)
[2024-09-22 06:15] LABS: Absolute Lymphocyte Count 0.97 X10^3/uL (0.83-4.51); Absolute Neutrophil Count 6.7 X10^3/uL (2.0-7.7); Basophil# 0.05 X10^3/uL; Basophil% 0.6 % (0-1); Eosinophil# 0.24 X10^3/uL; Eosinophils% 2.9 % (0-5); Hematocrit 35.2 % (40-54); Hemoglobin 11.9 g/dL (13.0-16.5); Lymphocyte # 0.97 X10^3/ul (0.83-4.51); Lymphocyte % 11.5 % (19-41); Mean Corp Hgb Conc 33.8 g/dL (32-36); Mean Corpuscular Hgb 31.6 pg (27.0-32.0); Mean Corpuscular Volume 93.4 fL (80-94); Mean Platelet Vol. 9.3 fl (6.2-12.0); Monocyte# 0.47 X10^3/uL; Monocyte% 5.6 % (0-10); NRBC Flagged by Analyzer 0 % (0-5); Neutrophil # 6.67 X10^3/uL (2.7-7.7); Neutrophil % 79.2 % (47-70); Platelet Count 171 K/mm3 (150-450); RBC Distribution Width CV 13.2 % (11.6-14.6); Red Blood Count 3.77 M/mm3 (4.6-6.2); White Blood Count 8.4 K/mm3 (4.4-11.0)
[2024-09-22 06:43] LABS: Magnesium 1.8 mg/dL (1.5-2.2); Phosphorus 2.3 mg/dL (2.7-4.5)
[2024-09-22 06:47] LABS: ALB/GLOB Ratio 1.6 RATIO (0.9-2.4); AST(SGOT) 36 U/L (<=37); Alanine Aminotransfer ALT/SGPT 19 U/L (<=46); Albumin, Serum 3.1 g/dL (3.4-4.8); Alkaline Phosphatase 68 U/L (40-129); Anion Gap 10 (5-15); BUN 17 mg/dL (4-19); BUN/Creat Ratio 11.2 RATIO (10-20); Calcium,Total 7.9 mg/dL (7.6-11.0); Carbon Dioxide 17.2 mmol/L (21.0-32.0); Chloride 111 mmol/L (98-108); Creatinine, Serum 1.51 mg/dL (0.70-1.20); EST Glomerular Filtration Rate 47 (>60); Estimated Creatinine Clearance 42.64 ml/min (50-250); Glucose 87 mg/dL (70-99); Sodium Level 138 mmol/L (133-145)
--- NOTE | 2024-09-22 07:43 | PN.HOSP_ITS ---
Reason for Visit Reason for Visit: Dizziness/nausea and vomiting Subjective Subjective Patient reports that his nausea is better. Tolerated clears this morning without any significant problem. Still some dizziness issues with positional changes. We discussed that this may be more of a chronic thing with his stroke affecting his cerebellum. Will try to advance diet to full's and then regular diet if he can tolerate. Objective Data Objective Data Vital Signs: Vital Signs Temp Pulse Resp BP Pulse Ox O2 Del Method 98.2 F 42 L 18 135/70 H 97 Room Air 09/22/24 06:00 09/22/24 06:00 09/22/24 06:00 09/22/24 06:00 09/22/24 06:00 09/22/24 06:00 Oxygen Delivery Method Room Air Weight: 76 kg Body Mass Index (BMI) 22.7 Intake & Output: Intake and Output for Last 24 Hours 09/20/24 09/21/24 09/22/24 23:59 23:59 23:59 Intake Total 2110 / 2110 1320 / 1320 1000 / 1000 Output Total 350 / 350 1400 / 1400 100 / 100 Balance 1760 / 1760 -80 / -80 900 / 900 Lab / Micro Data 09/22/24 05:43 09/22/24 05:43 Labs: Laboratory Results - last 24 hr 09/22/24 05:43: WBC 8.4, RBC 3.77 L, Hgb 11.9 L, Hct 35.2 L, MCV 93.4, MCH 31.6, MCHC 33.8, RDW Std Deviation 45.0 H, RDW Coeff of Gretel 13.2, Plt Count 171, MPV 9.3, Immature Gran % (Auto) 0.200, Neut % (Auto) 79.2 H, Lymph % (Auto) 11.5 L, Antelope % (Auto) 5.6, Eos % (Auto) 2.9, Baso % (Auto) 0.6, Absolute Neuts (auto) 6.7, Absolute Lymphs (auto) 0.97, Nucleated RBC % 0, Sodium 138, Potassium 4.0, Chloride 111 H, Carbon Dioxide 17.2 L, Anion Gap 10, BUN 17, Creatinine 1.51 H, Estim Creat Clear Calc 42.64 L, Est GFR (MDRD) Non-Af 47 L, BUN/Creatinine Ratio 11.2, Glucose 87, Calcium 7.9, Phosphorus 2.3 L, Magnesium 1.8, Total Bilirubin 0.50, AST 36, ALT 19, Alkaline Phosphatase 68, Total Protein 5.0 L, Albumin 3.1 L, Globulin 2.0 L, Albumin/Globulin Ratio 1.6 Radiography Diagnostic Testing: Radiology Impression Echocardiogram 09/20/24 18:40 Interpretation Summary Normal LV size. Mild concentric left ventricular hypertrophy. Left ventricular systolic function is normal. The left ventricular ejection fraction is 60 %. Stage 1 diastolic dysfunction. Ordering Physician: Linda Falcon Referring Physician: [facility] Performed By: Letha Elias RDCS Brain MRI 09/21/24 09:00 IMPRESSION: 1. Acute nonhemorrhagic infarct right cerebellum. 2. [id number] nonspecific chronic white matter changes, likely chronic small-vessel ischemic change. 3. Mild generalized atrophy. 4. No enhancing lesions Reading Location: [facility] Physical Exam Const alert, oriented x3, no apparent distress and average body habitus; Negative for healthy appearing or well nourished Constitutional Narrative: Thin, older, white male, frail-appearing, sitting up in a chair at the bedside, nursing at bedside HEENT head/scalp atraumatic and moist oral mucous membranes HEENT Narrative: Mallampati is 2 Head and Scalp: normocephalic Neck supple Resp normal respiratory effort, no retractions, no use of accessory muscles and clear to auscultation bilaterally Auscultation: Negative for rales, rhonchi or wheezes Cardio regular rate, regular rhythm, S1 normal heart sound, S2 normal heart sound, no murmurs, no rub, no gallops and no clicks GI GI Narrative: Scaphoid abdomen, bowel sounds are normal active, no significant tenderness, no distention, abdomen is soft Extremity no clubbing, cyanosis or edema Extremity Narrative: Decreased lean muscle mass Neuro oriented x3, moves all extremities and no focal motor deficits Psych Psych Narrative: Affect is slightly flat but patient makes good eye contact and interacts appropriately, very pleasant Assessment & Plan Assessment/Plan (1) Cerebellar stroke: (2) Nausea & vomiting: (3) Dizziness: PLAN: Plan Dizziness secondary to right acute cerebellar ischemic stroke - MRI shows acute right cerebellar infarct - Continue aspirin 81 mg daily - Continue Lipitor 40 mg daily - Echocardiogram done and shows an EF of 60% with stage I diastolic dysfunction no significant valvular abnormalities, mild concentric LVH - NIH remains 0 - Will restart home antihypertensives with goal blood pressure being 130/80 or less - Orthostatic vitals are unremarkable - Will need outpatient neurology follow-up and event monitor at discharge - Neurology was consulted and recommendations given--> they have signed off today Nausea and vomiting/constipation - Improved - Advance diet - Continue scopolamine patch - Continue IV therapy - Continue clear liquid diet but no advancement till nausea improves - May need repeat CT versus consultation with GI if does not clinically improve - Hold home antidiarrheal medication due to constipation noted on CT Hypophosphatemia - Sodium Phos bolus given - Recheck in a.m. 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 Celis - Continue home regimen CKD of unknown type - Serum creatinine is down from admission from 0.64-1.49 - Has been as high as 3.17 previously in 2021 - Continue to monitor - Discontinue IV fluids Hypothyroidism - TSH 2.040 - cont levothyroxine Essential hypertension -Restart home amlodipine -Goal blood pressure is to be less than 130/80 ideally Allergic rhinitis - Continue home loratadine and fluticasone Mood disorder/anxiety/depression - Continue home aripiprazole - Continue Lexapro History of tobacco abuse - Ongoing cessation DVT prophylaxis - Continue subcu Lovenox CODE STATUS - Full code per discussion at admission ++ updated on at 355 PM on 09/22/2024. Charges/Coding Visit Charges Inpatient E&M: 73861 Subs Hosp L2 NIHSS NIHSS Nursing Documentation NIHSS Nursing Documentation: NIHSS: Ischemic Stroke/TIA Start: 09/20/24 18:40 Text: For PCU Patients: NIH and Neuro Check every 4 Status: Active hours, PRN and with change in RN caregiver. Freq: [id number] Protocol: Activity Type Activity Date Activity User E-sign Co-sign Detail Recorded Client Recorded Date Recorded By Document 09/22/24 06:00 BONNIE [id number] 09/22/24 06:00 BONNIE 09/22/24 06:00 NIH Stroke Scale [NIHSS] A score of 0 is normal or asymptomatic . Total possible score is 42. Inpatient: RN or Physician to activate a stroke alert for onset of new stroke symptoms or with NIHSS increase >/= 3 points. Following change in neurological status, NIHSS will be performed per physician order or more frequently PRN. -1a. Level of Consciousness 0 - Alert; keenly responsive -1b. LOC Questions 0 - Answers BOTH questions correctly -1c. LOC Commands 0 - Performs BOTH tasks correctly -2. Best Gaze 0 - Normal -3. Visual 0 - No visual loss -4. Facial Palsy 0 - Normal symmetrical movements -5a. Left Arm 0 - No drift; arm holds 90 ( or 45) degrees for full 10 seconds -5b. Right Arm 0 - No drift; arm holds 90 ( or 45) degrees for full 10 seconds -6a. Left Leg 0 - No drift; leg holds 30- degree position for full 5 seconds -6b. Right Leg 0 - No drift; leg holds 30- degree position for full 5 seconds -7. Limb Ataxia 0 - Absent -8. Sensory 0 - Normal; no sensory loss -9. Best Language 0 - No aphasia; normal -10. Dysarthria 0 - Normal -11. Extinction and Inattention 0 - No abnormality -Total 0 Query Text:A score of 0 is normal or asymptomatic. Total possible score is 42 . ED: Notify Physician for NIHSS increase by > / = 3 points. Inpatient: RN or Physician to activate a stroke alert for NIHSS increase of > / = 3 points. Coma Scale [Assess] -Eye Opening Spontaneous -Motor Obeys Commands -Verbal Oriented [Total] -Coma Scale Total 15
[2024-09-22] MEDS: Pantoprazole Sodium 40 MG in 0.9% Normal Saline (100mL MB+) 100 ML 330 MG IV ×2 (08:12→21:34)
[2024-09-22] MEDS: Colestipol 1 GM TABLET PO ×2 (08:25→21:36)
[2024-09-22] MEDS: Aspirin 81 MG TAB.CHEW PO (08:25)
[2024-09-22] MEDS: Loratadine 10 MG Tablet PO (08:25)
[2024-09-22] MEDS: Escitalopram Oxalate 10 MG Tablet PO (08:25)
[2024-09-22] MEDS: Enoxaparin 40 MG/0.4 ML Syringe SC (08:25)
[2024-09-22] MEDS: Sodium Phosphate/Na Biphos 30 MMOL in 0.9% Normal Saline (250mL Bag) 250 ML 62.5 MMOL IV (08:44)
[2024-09-22] MEDS: amLODIPine 10 MG Tablet PO (10:22)
--- NOTE | 2024-09-22 11:02 | CASEMGMT ---
SW completed a PHQ 9 with patient as he had a Stroke. Patient scored a 2 which indicates minimal depression. Patient was not sure if he needed counseling or not. SW provided patient with a list of local mental health providers. Patient thanked FADY. Katelin ANTOINE
[2024-09-22] MEDS: OCTREOTIDE ACETATE IM (12:48)
[2024-09-22] MEDS: Acetaminophen 325 MG Tablet 650 MG PO (17:49)
[2024-09-22] MEDS: 0.9% Saline Lock 10 ML Syringe IV (21:34)
[2024-09-22] MEDS: Atorvastatin Calcium 40 MG Tablet PO (21:36)
[2024-09-23 00:15] VITALS: BP 136/62; PULSE 48; RESP 18; TEMP 36.7; O2SAT 94
[2024-09-23 03:49] VITALS: BMI 22.8
[2024-09-23 04:15] VITALS: BP 166/84; PULSE 48; RESP 18; TEMP 36.8; O2SAT 95
[2024-09-23] MEDS: Levothyroxine 25 MCG TABLET PO (05:32)
[2024-09-23 06:23] LABS: Anion Gap 11 (5-15); BUN 16 mg/dL (4-19); BUN/Creat Ratio 9.8 RATIO (10-20); Calcium,Total 7.8 mg/dL (7.6-11.0); Carbon Dioxide 21.8 mmol/L (21.0-32.0); Chloride 107 mmol/L (98-108); Creatinine, Serum 1.66 mg/dL (0.70-1.20); EST Glomerular Filtration Rate 42 (>60); Estimated Creatinine Clearance 38.89 ml/min (50-250); Glucose 94 mg/dL (70-99); Phosphorus 2.6 mg/dL (2.7-4.5); Potassium 3.8 mmol/L (3.3-5.1); Sodium Level 140 mmol/L (133-145)
[2024-09-23 06:57] VITALS: O2SAT 94
[2024-09-23] MEDS: Aspirin 81 MG TAB.CHEW PO (08:07)
[2024-09-23] MEDS: amLODIPine 10 MG Tablet PO (08:12)
[2024-09-23] MEDS: Colestipol 1 GM TABLET PO (08:12)
[2024-09-23] MEDS: 0.9% Saline Lock 10 ML Syringe IV (08:12)
[2024-09-23] MEDS: Enoxaparin 40 MG/0.4 ML Syringe SC (08:12)
[2024-09-23] MEDS: Loratadine 10 MG Tablet PO (08:12)
[2024-09-23] MEDS: Escitalopram Oxalate 10 MG Tablet PO (08:12)
[2024-09-23] MEDS: Pantoprazole Sodium 40 MG in 0.9% Normal Saline (100mL MB+) 100 ML 330 MG IV (08:16)
--- NOTE | 2024-09-23 09:23 | CASEMGMT ---
MISHEL HAMMER called and left VM for Brisa FLORENTINO at [facility] to coordinate increase in aide hours and arrange for HHC. MISHEL HAMMER left with return contact information, awaiting call back.
[2024-09-23 10:00] VITALS: BP 160/72; PULSE 48; RESP 18; TEMP 36.7; O2SAT 95
--- NOTE | 2024-09-23 10:54 | CASEMGMT ---
MISHEL HAMMER updated by PT that patient did poorly today requiring min assist as patient was impulsive and had several losses of balance. MISHEL HAMMER called and updated regarding progress with therapy, is concerned with patient coming home and is interested in SNF placement for additional rehab. stated she would call patient and discuss with him. MISHEL HAMMER received call back from who states that patient was adamant that he was not going to a SNF as he does not want to be there [facility] and he doesn't want to lose his VA benefits and MCR. asked if this MISHEL CM could speak with patient. RN CM in to discuss progress with therapy and discharge planning. Patient is aware with how poorly he did with therapy. MISHEL HAMMER discuss TCU or RU for at discharge and that it would just be temporary for maybe 1-2weeks. Patient he needs to get home to make sure someone is there to help his . MISHEL HAMMER discussed the patient's need for help and that his would need to assist him with his care. MISHEL HAMMER discussed concern for patient balance and what if he fell while his was helping him and she fell too. Patient voiced understanding and states he is willing to consider TCU or RU but wants to discuss it with his . MISHEL HAMMER called back and updated regarding conversation with patient. voiced appreciation and states she will be in around 1:00pm to see patient. RN CM update that CM will be available to help with discharge planning. MISHEL HAMMER updated SW and hospitalist regarding possible referral to TCU/RU. CM will continue to follow this patient and plan for a safe discharge.
[2024-09-23] MEDS: Sodium Phosphate/Na Biphos 15 MMOL in 0.9% Normal Saline (250mL Bag) 250 ML 125 MMOL IV (11:23)
[2024-09-23] MEDS: oxyCODONE 5 MG Tablet PO (13:34)
--- NOTE | 2024-09-23 13:53 | CASEMGMT ---
Physician spoke with patient and his and they are agreeable to [facility] Acute Rehab Unit. SW made a referral and Rehab can take patient. SW went to patient's room to confirm they were in agreement. Physician was in the room and said to go ahead with the rehab d/c and patient will d/c today. SW notified Antonieta in Rehab Unit that physician would like to send patient today. Plan: d/c to [facility] Acute Rehab Unit. Katelin ANTOINE
--- NOTE | 2024-09-23 14:04 | CASEMGMT ---
SW spoke with patient and his and they are both agreeable to Acute Rehab Unit. Katelin Wyatt DEWER ELINA
[2024-09-23 15:13] VITALS: BMI 22.8
[2024-09-23 16:48] VITALS: BP 162/76; PULSE 55; RESP 17; TEMP 36.7; O2SAT 97
--- NOTE | 2024-09-23 16:56 | PCM.DC.SUM ---
Providers Date of Admission: 09/21/24 Date of Discharge: 09/23/24 Primary Care Physician: [facility] Reason For Visit: ? TIA/CVA, ELEVATED TROP UNCLEAR SIGNIFICANCE Diagnosis Discharge Diagnosis (1) Cerebellar stroke: Status: Acute Code(s): I63.9 - Cerebral infarction, unspecified (2) Nausea & vomiting: Status: Acute Code(s): R11.2 - Nausea with vomiting, unspecified (3) Dizziness: Status: Acute Code(s): R42 - Dizziness and giddiness Medications at Discharge Home Medications amlodipine 10 mg tablet 10 mg PO DAILY Blood pressure 90 days #90 tabs 09/20/20 loratadine 10 mg tablet 10 mg PO DAILY ALLERGIES 09/21/21 aspirin 81 mg tablet 81 mg PO DAILY heart health 09/20/24 colestipol 1 gram tablet 1 g PO BID cholesterol 09/20/24 escitalopram oxalate 10 mg tablet 10 mg PO DAILY depression 09/20/24 levothyroxine 25 mcg tablet (Levo-T) 25 mcg PO DAILY thyroid 09/20/24 loperamide 2 mg tablet (Diamode) 4 mg PO BID diarrhea 09/20/24 octreotide acetate 30 mg IM Q28D 09/20/24 potassium chloride 20 mEq tablet,extended release 20 meq PO DAILY supplement 09/20/24 telotristat ethyl 250 mg tablet (Xermelo) 250 mg PO TID diarrhea 09/20/24 atorvastatin 40 mg tablet 40 mg PO QHS #0 tabs 09/23/24 enoxaparin 40 mg/0.4 mL subcutaneous syringe 40 mg (0.4 mL) subcut DAILY #0 mL 09/23/24 food supplemt, lactose-reduced 0.08 gram-1.5 kcal/mL oral liquid (Ensure Plus High Protein) 120 ml PO TIDCM #0 mL 09/23/24 oxycodone-acetaminophen 5 mg-325 mg tablet 1 tab PO TID 1 day #3 tabs 09/23/24 Hospital Course Procedures 2-D Echocardiogram, EKG and - (CT abdomen pelvis/CT brain/CTA head neck/chest x-ray/MRI brain) Summary of Care Provided Minutes Spent on Discharge: 41 Hospital Course: Mr. Gomez is a 79-year-old white male who presents emergency department [facility] on 09/20/2024 with a chief complaint of falls and dizziness as well as nausea vomiting. Patient reported that he had some nausea and lightheadedness as well as dizziness that resulted in some emesis starting on the morning of presentation that resulted in a mechanical fall. This led to evaluation in the emergency department. Patient also reported generalized headache on the top of his head that felt like pressure. He had no nausea or vomiting at rest emergency department but tried to get up which caused more nausea and 1 bout of emesis. NIH was 0. Vital signs on presentation showed a temperature of 97.6, heart rate 57, blood pressure was 191/93 with a repeat of 162/84 and a pulse ox of 96% on room air. He had a mild leukocytosis on his CBC but was otherwise unremarkable. Chemistry revealed elevated serum creatinine at 1.64 but this is not far off his baseline serum creatinine. Initial troponin was 56. Delta troponin was 58. CT of the abdomen pelvis was performed and showed nonspecific lobulated isodense lesion in the pelvis that was 4 3.4 cm. 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 He also had mild esophageal hiatal hernia with fecal retention in the colon consistent with constipation and colonic diverticulosis without diverticulitis. CT the brain shows small vessel changes but no acute abnormality. CTA of the head and neck showed no significant stenosis in bilateral internal carotid arteries and very mild scattered atherosclerotic calcifications in the anterior and posterior intracranial and extracranial circulation. Chest x-ray was negative for any acute findings. Patient was admitted with stroke protocol and placed on IV fluids due to nausea and vomiting. We added a scopolamine patch which significantly helped his nausea and vomiting. An MRI of the brain was pursued and showed an acute nonhemorrhagic infarct of the right cerebellum with mild to moderate nonspecific chronic white matter changes and mild generalized atrophy. No enhancing lesions were noted. Echocardiogram showed an EF of 60% with mild concentric LVH and stage I diastolic dysfunction. He was evaluated by neurology and they recommended event monitor at discharge which was prescribed. On admission he was placed on aspirin and atorvastatin. His LDL was 91 and his hemoglobin A1c was 5.5. We did restart his antihypertensives on 09/22/2024 his blood pressures were somewhat labile and will need ongoing evaluation. He may need additional antihypertensives. He also was bradycardic especially at night but was asymptomatic through his stay in on the monitor appeared to be sinus bradycardia without any symptoms. Again event monitor was ordered after discharge and will be pursued. Initially thought the patient would be able to go home however with his dizziness he was fairly unsteady and agreeable to go to acute rehab. She was excepted to the acute rehab unit and able to be discharged on 09/23/2024. Discharge diagnoses: Dizziness secondary to acute right cerebellar ischemic stroke Nausea and vomiting-resolved Constipation-resolved Elevated troponin secondary to demand ischemia Metastatic stage IV carcinoid tumor-follows at [place] CKD stage II Hypothyroidism Essential hypertension Allergic rhinitis Mood disorder Anxiety Depression History of tobacco abuse Physical Exam Const alert, oriented x3, no apparent distress and average body habitus; Negative for healthy appearing or well nourished Constitutional Narrative: Thin, older, white male, frail-appearing, sitting up in bed watching television, appears comfortable, nontoxic General Appearance: cooperative, comfortable, well kempt and well developed Exam Limitations: no limitations Nutritional Appearance: thin HEENT normocephalic, head/scalp atraumatic and moist oral mucous membranes Eyes conjunctivae normal Eyes Narrative: No scleral icterus Neck supple Neck Narrative: Trachea midline Resp normal respiratory effort, no retractions, no use of accessory muscles and clear to auscultation bilaterally Auscultation: Negative for rales, rhonchi or wheezes Cardio regular rate, regular rhythm, S1 normal heart sound, S2 normal heart sound, no murmurs, no rub, no gallops and no clicks GI soft to palpation GI Narrative: Scaphoid abdomen, bowel sounds are normal active, no significant tenderness, no distention, abdomen is soft Extremity no clubbing, cyanosis or edema Extremity Narrative: Decreased lean muscle mass Neuro oriented x3, moves all extremities and no focal motor deficits Speech: speech normal Psych Psych Narrative: Very pleasant, interacts appropriately Weight / BMI Weight Weight: 76.2 kg Body Mass Index (BMI) 22.8 ABG / Lab / Microbiology Data 09/22/24 05:43 09/23/24 05:23 Laboratory: Laboratory Results - last 24 hr 09/23/24 05:23: Sodium 140, Potassium 3.8, Chloride 107, Carbon Dioxide 21.8, Anion Gap 11, BUN 16, Creatinine 1.66 H, Estim Creat Clear Calc 38.89 L, Est GFR (MDRD) Non-Af 42 L, BUN/Creatinine Ratio 9.8 L, Glucose 94, Calcium 7.8, Phosphorus 2.6 L D/C Instructions Discharge Diet: Low fat / Low cholesterol Discharge Activity: Return to Normal Activity and No Restrictions DC O2, CPAP, BIPAP Needs Home O2 Discharge instructions: No Meaningful Use Info Meaningful Use Meaningful Use Diagnoses (Choose all that apply): Ischemic CVA CVA Therapy Assessed for PT,OT and/or ST?: Yes Ischemic Stroke Antithrombotic order at d/c?: Yes Dx of Atrial fib/flutter?: No Statin Dosing Therapy Reference: STATIN DOSE THERAPY REFERENCE: * Patients > 75 years receive moderate or high dose statin therapy. * Patients 75 years or YOUNGER should receive HIGH intensity statin dose unless contraindicated. You will be required to document reason for non-treatment if statin daily dose does not meet guidelines. HIGH DOSE STATIN THERAPY DAILY Atorvastatin > than or = to 40 mg Rosuvastatin > than or = to 20 mg Amlodipine + Atorvastatin > than or = to 2.5/40 mg Ezetimibe + Simvastatin 10/80 mg Simvastatin 80mg Statins at discharge?: Yes Primary Dx Acute Ischemic CVA?: Yes Discharge Plan Admission Admit Date/Time: 09/21/24 14:45 Primary Reason for Your Visit: Dizziness/nausea and vomiting Attending Provider: Rebecca Lima Primary Care Provider: [facility],[place] Consulting Providers: Linda Falcon Instructions Additional Instructions / Restrictions: 1. You will need to follow-up with neurology. You can call and follow-up with the neurologist below or follow-up with neurology at the [place] which ever you prefer Discharge Orders/Prescriptions Prescriptions: New atorvastatin 40 mg Tablet 40 mg PO QHS Qty: 0 0RF enoxaparin 40 mg/0.4 mL Syringe 40 mg subcut DAILY Qty: 0 0RF Ensure Plus High Protein 0.08 gram-1.5 kcal/mL Liquid 120 ml PO TIDCM Qty: 0 0RF Continued amlodipine 10 mg Tablet 10 mg PO DAILY 90 Days Qty: 90 0RF loratadine 10 mg Tablet 10 mg PO DAILY octreotide acetate 30 mg suspension 30 mg IM Q28D Patient Comments: PT DUE YESTERDAY 09/19/24. PT BROUGHT. colestipol 1 gram tablet 1 g PO BID Patient Comments: RX SIG STATES 2QD, PT CAN ONLY TOLERATE 1QD Xermelo 250 mg tablet 250 mg PO TID Rx Instructions: must administer with a meal/food loperamide [Diamode] 2 mg tablet 4 mg PO BID levothyroxine [Levo-T] 25 mcg tablet 25 mcg PO DAILY aspirin 81 mg tablet 81 mg PO DAILY escitalopram oxalate 10 mg tablet 10 mg PO DAILY potassium chloride 20 mEq tablet extended release 20 meq PO DAILY Changed oxycodone-acetaminophen 5-325 mg tablet 1 tab PO TID 1 Days Qty: 3 0RF Patient Comments: TAKES INSTEAD OF SR. PT TAKES APPROX 3 TIMES DAILY Other Ambulatory Orders: 30 Day Event Recorder Preventi (Urgent) Timeframe: 1 Day Facility: [facility] - Location: Cardiovascular Services Ordered By: Dr. Rebecca Lima Referrals / Follow Up: Ovidio Mccabe MD [Non-Staff -Ordering Privileges] - Within 1 Month [facility] [Primary Care Provider] - Within 1 Week (1 week after d/c) Disposition Disposition (needs filled in before D/C Order can be placed): Inpatient Rehab Unit/Facility Charges/Coding Visit Charges Inpatient E&M: 40178 Disch Hosp >30min
== END 2024-09-23 17:58 | DRG 65 ==
LOC: ED 16:58 → PCU 18:27
PROVIDERS: Admitting Provider Family Medicine; Emergency Provider Emergency Medicine; Visit Provider Internal Medicine
DX: I63.541 Cerebral infarction due to unspecified occlusion or stenosis of right cerebellar artery (principal); C78.7 Secondary malignant neoplasm of liver and intrahepatic bile duct; C7A.029 Malignant carcinoid tumor of the large intestine, unspecified portion; C7A.098 Malignant carcinoid tumors of other sites; R29.715 NIHSS score 15; K44.9 Diaphragmatic hernia without obstruction or gangrene; E03.9 Hypothyroidism, unspecified; F32.A Depression, unspecified; I12.9 Hypertensive chronic kidney disease with stage 1 through stage 4 chronic kidney disease, or unspecified chronic kidney disease; F39 Unspecified mood [affective] disorder; N18.9 Chronic kidney disease, unspecified; E66.9 Obesity, unspecified; R11.2 Nausea with vomiting, unspecified; F41.9 Anxiety disorder, unspecified; J30.9 Allergic rhinitis, unspecified; W19.XXXA Unspecified fall, initial encounter; K59.00 Constipation, unspecified; Z87.891 Personal history of nicotine dependence; Z86.16 Personal history of COVID-19; Z79.01 Long term (current) use of anticoagulants; Z79.890 Hormone replacement therapy; R26.81 Unsteadiness on feet; R42 Dizziness and giddiness; Z82.49 Family history of ischemic heart disease and other diseases of the circulatory system; Z79.02 Long term (current) use of antithrombotics/antiplatelets; Z79.82 Long term (current) use of aspirin; Z88.1 Allergy status to other antibiotic agents; Z90.49 Acquired absence of other specified parts of digestive tract
CPT/HCPCS: 36415; 70450; 70496; 70498; 70553; 71046; 74177; 80048; 80053; 80061; 81001; 82962; 83036; 83690; 83735; 84100; 84443; 84484; 85025; 85610; 85730; 92526; 92610; 93005; 93306; 94762; 97110; 97116; 97162; 97166; 97530; 97535; 97802; 97803; 99285; A9575; Q9957; Q9967; A4216; J2405

== ENCOUNTER 2024-09-23 18:05 | Inpatient (IN) | payer MEDICARE, SELFPAY ==
[2024-09-23 18:36] VITALS: BMI 22.5
[2024-09-23 18:37] VITALS: BP 116/77; PULSE 61; RESP 17; TEMP 36.4; O2SAT 96
[2024-09-23] MEDS: Loperamide 2 MG Capsule 4 MG PO (20:37)
[2024-09-23] MEDS: Atorvastatin Calcium 40 MG Tablet PO (20:37)
[2024-09-23] MEDS: Colestipol 1 GM TABLET PO (22:19)
[2024-09-24] MEDS: 0.9% Saline Lock 10 ML Syringe IV (05:09)
[2024-09-24] MEDS: Enoxaparin 40 MG/0.4 ML Syringe SC (05:09)
[2024-09-24] MEDS: Levothyroxine 25 MCG TABLET PO (05:09)
[2024-09-24 05:15] VITALS: BP 160/80; PULSE 60; RESP 17; TEMP 36.3; O2SAT 96
[2024-09-24] MEDS: amLODIPine 10 MG Tablet PO (08:17)
[2024-09-24] MEDS: Potassium Chloride Oral Tablet 20 MEQ PO (08:17)
[2024-09-24] MEDS: Escitalopram Oxalate 10 MG Tablet PO (08:17)
[2024-09-24] MEDS: Loratadine 10 MG Tablet PO (08:17)
[2024-09-24] MEDS: Ensure Plus High Protein 120 ML LIQUID PO ×3 (08:17→17:46)
[2024-09-24] MEDS: Aspirin 81 MG TAB.CHEW PO (08:17)
[2024-09-24] MEDS: Colestipol 1 GM TABLET PO ×2 (10:32→21:33)
--- NOTE | 2024-09-24 10:45 | EX.PCM.HP.RE ---
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 He had a mechanical fall which precipitated the visit to the emergency department. He additionally complained of a headache. He actually had vertigo in the ED when attempting to move. A stat noncontrast CT brain showed no acute findings. There was generalized brain atrophy and small vessel ischemic disease. CTA of the head and neck showed mild scattered atherosclerotic calcification of the anterior and posterior intracranial and extracranial circulation without hemodynamically significant stenosis. CT scan of the abdomen and pelvis showed a nonspecific lobulated isodense lesion in the pelvis measuring up to 3.4 cm. There was a mild esophageal hiatal hernia and fecal retention in the colon consistent with constipation. He had colonic diverticulosis with no evidence of diverticulitis. Chest x-ray showed mild basilar atelectasis with no evidence of pneumonia or pleural effusion. There were no acute findings. He was admitted to the hospitalist service for concern for a posterior circulation CVA. MRI of the brain done on 09/21/2024 showed an acute nonhemorrhagic infarct in the right cerebellum. There was mild to moderate nonspecific chronic white matter changes and mild generalized atrophy. Hemoglobin A1c was normal at 5.5. Total cholesterol was 175 with an LDL of 91 and an HDL of 61. Transthoracic echocardiogram showed mild concentric left ventricular hypertrophy with an EF of 60%. There was stage I diastolic dysfunction. There was no significant valvular heart disease and a bubble study was not done. Teleneurology consult was obtained and daily antiplatelet medication was recommended. They also recommended starting Lipitor at 40 mg daily for an LDL of 91. He was evaluated by therapy and had an unsteady gait. He was agreeable to acute rehab at discharge and he was transferred to the acute inpatient rehab unit at [facility] in the evening on 09/23/2024 for 3 hours of therapy daily to restore function/independence at or near his level prior to the stroke. [facility] Medical History (Updated 09/25/24 @ 19:[address] Pamella Zuniga, ) Mild concentric left ventricular hypertrophy Grade I diastolic dysfunction Chronic narcotic use Allergic rhinitis History of depression Hypothyroidism Obesity (BMI 30.0-34.9) Chronic renal failure, stage 3 (moderate) Chronic abdominal pain History of malignant carcinoid tumor Bilateral pneumonia History of COVID-19 Anxiety and depression Cancer Former smoker Hypertension Stroke/cerebrovascular accident Multiple metastatic carcinoid tumors Home Medications ?Medication ?Instructions ?Recorded ?Last Taken ?Type amlodipine 10 mg tablet 10 mg PO DAILY Blood pressure 90 09/20/20 09/23/24 Rx days #90 tabs loratadine 10 mg tablet 10 mg PO DAILY ALLERGIES 09/21/21 09/23/24 History aspirin 81 mg tablet 81 mg PO DAILY heart health 09/20/24 09/23/24 History colestipol 1 gram tablet 1 g PO BID cholesterol 09/20/24 09/23/24 History escitalopram oxalate 10 mg tablet 10 mg PO DAILY depression 09/20/24 09/23/24 History levothyroxine 25 mcg tablet 25 mcg PO DAILY thyroid 09/20/24 09/23/24 History (Levo-T) loperamide 2 mg tablet (Diamode) 4 mg PO BID diarrhea 09/20/24 09/20/24 History octreotide acetate 30 mg IM Q28D cancer 09/20/24 09/22/24 History potassium chloride 20 mEq 20 meq PO DAILY supplement 09/20/24 09/23/24 History tablet,extended release telotristat ethyl 250 mg tablet 250 mg PO TID diarrhea 09/20/24 09/20/24 History (Xermelo) acetaminophen 325 mg tablet 650 mg PO Q6H PRN pain/fever 09/23/24 Unknown History atorvastatin 40 mg tablet 40 mg PO QHS cholsterol #0 tabs 09/23/24 09/22/24 Rx enoxaparin 40 mg/0.4 mL 40 mg (0.4 mL) subcut DAILY 09/23/24 09/23/24 Rx subcutaneous syringe prophylaxis #0 mL food supplemt, lactose-reduced 120 ml PO TIDCM nutrition #0 mL 09/23/24 Unknown Rx 0.08 gram-1.5 kcal/mL oral liquid (Ensure Plus High Protein) Allergy/AdvReac Type Severity Reaction Status Date / Time amoxicillin Allergy Rash Verified 09/20/24 13:53 codeine AdvReac Nausea Verified 09/20/24 13:53 Family History Mother Heart disease Myocardial infarction CAD (coronary artery disease) Father COPD (chronic obstructive pulmonary disease) Surgical History H/O resection of small bowel S/P colectomy History of appendectomy History of cholecystectomy Social History household members: spouse Smoking Status: Former smoker how long ago did patient quit smoking: Patient smoked in the only and quit remotely. alcohol intake: never substance use type: does not use ROS Constitutional Constitutional: Denies anorexia, change in weight, chills, fatigue, fever(s), night sweats or weakness Eyes Eyes: Reports periorbital itching and other; Denies blurry vision, change in vision, eye pain or loss of vision ENT HEENT: Reports abnormal hearing, dizziness, hearing loss, rhinorrhea and other Details: Bilateral hearing aid ; Denies dysphagia, headache(s), nasal congestion or sore throat Cardiovascular Cardiovascular: Denies chest pain, dyspnea on exertion, edema, lightheadedness, nausea, orthopnea, palpitations, paroxysmal nocturnal dyspnea, pedal edema or syncope Respiratory/Chest Respiratory/Chest: Reports cough, snoring, witnessed apneas and other Details: Diagnosed with sleep apnea in the past but because he is a 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 He is not on supplemental oxygen at night. ; Denies dyspnea, portable oxygen @ home, shortness of breath at rest, shortness of breath with exertion or wheezing Gastrointestinal Gastrointestinal: Reports diarrhea; Denies abdominal pain, constipation, dyspepsia, hematemesis, hematochezia, nausea, vomiting or weight changes Genitourinary Genitourinary: Denies dysuria, hematuria, nocturia, urinary frequency, urinary hesitancy, urinary incontinence or urinary urgency Musculoskeletal Musculoskeletal: Denies back pain, joint pain, joint swelling or neck pain Integumentary Integumentary: Reports alopecia and dry skin; Denies jaundice, photosensitivity, pruritus, rash or skin pain Neurologic Neurologic: Reports confusion, disequilibrium, dizziness and other Details: Got confused in the evening last night. ? ; Denies focal weakness, headache(s), paresthesias, radicular pain, restless legs, seizures or tremor(s) Psychiatric Psychiatric: Denies anxiety, depression, homicidal ideation or suicidal ideation Endocrine Endocrinology: Denies change in body appearance, polydipsia or polyuria Hematologic/Lymphatic Hematologic/Lymphatic: Denies easy bleeding, easy bruising or lymphadenopathy Allergic/Immunologic Allergic/Immunologic: Denies rhinitis, eczemia or asthma Vital Signs Vital Signs Vital Signs: 09/23/24 18:37 09/24/24 05:15 09/24/24 07:19 Temperature 97.6 F L 97.3 F L Temperature Source Temporal Oral Pulse Rate 61 60 Respiratory Rate 17 17 Blood Pressure 116/77 160/80 H Blood Pressure Mean 90 106 Blood Pressure Source Monitor Monitor Blood Pressure Position Semi-Fowlers Semi-Fowlers Blood Pressure Location Right Arm Right Arm Pulse Ox 96 96 Oxygen Delivery Method Room Air Room Air Room Air Weight Weight: 166 lb 3.657 oz Body Mass Index (BMI) 22.5 Indicators for Scoring Admitted with or Primary Diagnosis of CVA/Stroke: Yes Hx of CVA/Stroke: Yes Modified Jose M Score MRS Score at time of Evaluation: 3-Moderate disability NIHSS NIHSS 1a. Level of Consciousness: 0 - Alert; keenly responsive 1b. LOC Questions: 0 - Answers BOTH questions correctly 1c. LOC Commands: 0 - Performs BOTH tasks correctly 2. Best Gaze: 0 - Normal 3. Visual: 0 - No visual loss 4. Facial Palsy: 0 - Normal symmetrical movements 5a. Left Arm: 0 - No drift; arm holds 90 (or 45) degrees for full 10 seconds 5b. Right Arm: 0 - No drift; arm holds 90 (or 45) degrees for full 10 seconds 6a. Left Le - No drift; leg holds 30-degree position for full 5 seconds 6b. Right Le - No drift; leg holds 30-degree position for full 5 seconds 7. Limb Ataxia: 0 - Absent 8. Sensory: 0 - Normal; no sensory loss 9. Best Language: 0 - No aphasia; normal 10. Dysarthria: 0 - Normal 11. Extinction and Inattention: 0 - No abnormality Total: 0 Stroke Questions Stroke Team Activated: No Physical Exam Const alert, oriented x3 and no apparent distress Constitutional Narrative: Sitting in the recliner at the bedside. Appropriate, pleasant, makes good eye contact. General Appearance: cooperative and well kempt HEENT head/scalp atraumatic HEENT Narrative: Bilateral hearing aids. Tongue protrudes on the midline. Mucous membranes are little dry. Eyes PERRL, EOMs intact bilaterally, conjunctivae normal and no scleral icterus Eyes Narrative: No discharge from the eyes. He has a few beats of nystagmus with extreme lateral gaze but is asymptomatic. Neck supple, No nodes and no carotid bruits General: trachea midline Chest Chest: symmetrical chest wall rise Resp Resp Narrative: Few coarse bibasilar crackles. No wheezing. Not tachypneic. No conversational dyspnea. Normal respiratory effort. Effort and Inspection: able to speak in complete sentences Cardio regular rate, regular rhythm, S1 normal heart sound, S2 normal heart sound, no murmurs, no rub and no gallops Cardio Narrative: No ectopy GI normal to inspection, nondistended, normoactive bowel sounds, soft to palpation and non-tender GI Narrative: No guarding with palpation no CVA tenderness Narrative: Postvoid residuals are all less than 10. Back/Spine straight leg raise negative bilaterally Extremity no calf tenderness and no pedal edema Extremity Narrative: No clubbing and no cyanosis. Skin Skin Narrative: He has some skin tears and bruises from the fall. NO cellulitis observed. IV site in the L antecubital fossa is reddened and tender but, no purulent DC and no superficial thormbophlebitis observed. Rashes: no rashes Neuro oriented x3, CN's II-XII intact bilaterally, moves all extremities, no focal motor deficits and no sensory deficits noted Neuro Narrative: No visual field cuts. Nystagmus but, denies vertigo. no extinction. Oriented to mmonth, year, place but, told me he is here for a heart attack and not a stroke. Had some sundowning last night. Psych cooperative, affect normal, speech normal, denies hallucinations, denies homicidal ideation and denies suicidal ideation Psych Narrative: Had some sundowning last night. He is impulsive and has poor safety awareness. Confused at times. Results Lab / Micro Data 09/24/24 13:44 09/24/24 13:44 Assessment & Plan Assessment/Plan (1) Debility: (2) Cerebellar stroke: (3) Gait instability: (4) Cognitive dysfunction: (5) Sundowning: (6) History of malignant carcinoid tumor: (7) Short bowel syndrome: QUALIFIERS: Short bowel syndrome type: unspecified whether colon in continuity Qualified Code(s): K90.829 - Short bowel syndrome, unspecified (8) Hypothyroidism: QUALIFIERS: Hypothyroidism type: acquired Qualified Code(s): E03.9 - Hypothyroidism, unspecified (9) Chronic narcotic use: (10) Chronic abdominal pain: (11) Chronic renal failure, stage 3 (moderate): QUALIFIERS: Chronic kidney disease stage 3 subtype: unspecified whether 3a or 3b Qualified Code(s): N18.30 - Chronic kidney disease, stage 3 unspecified (12) History of depression: (13) Obesity (BMI 30.0-34.9): (14) Allergic rhinitis: QUALIFIERS: Allergic rhinitis trigger: unspecified Allergic rhinitis seasonality: non-seasonal Qualified Code(s): J30.89 - Other allergic rhinitis (15) Dyslipidemia: (16) Benign essential HTN: (17) Grade I diastolic dysfunction: (18) Mild concentric left ventricular hypertrophy: PLAN: Plan PLAN PT for gait stability OT for ADL's ST for evaluation Analgesics as needed Bowel protocol Fall precautions Assess for Anxiety/Depression GI prophylaxis -not necessary at this time. He denies history of peptic ulcer disease and he also denies heartburn, nausea/vomiting/epigastric pain. DVT prophylaxis with enoxaparin 40 mg subcu daily Follow up with PCP and neurology following DC from [facility] AM lab including CMP, CBC, Mag and Phos-all personally reviewed Permissive hypertension for now but in another 3 to 4 days will want to see the blood pressure less than 140/80. Charges/Coding Visit Charges Inpatient E&M: 12376 Init Hosp L3
--- NOTE | 2024-09-24 10:47 | PCM.RU.PYE ---
Admission Information Primary Diagnosis:: Poststroke debility-right cerebellar ischemic CVA Status Changes from Prescreening?: No changes Identified Actual Problem List:: Skin Intergrity, Pain, ALteration in Cmfrt, Cognitve Impr/Memory Loss, Depression, Alteration in Sleep, Mobility Impaired, Self Care Deficit and Alteration-Leisure Activ. Potential Problem List:: DVT, Bleeding, Infection, UTI, Aspiration, Falls, Skin Integrity and Depression Risk of Complications DVT: LMWH and ELLA Hose Bleeding: Monitor Lab Values, Nursing to Teach Precautions for anti-coagulation therapy., Wound, if applicable, to be assessed every shift. and Stroke patients assessed for lethargy or change in status. Infection: Clinical Staff to Monitor for S/S of infection: and S/S of infection include fever, redness, warmth, etc. Urinary Tract Infection: Monitor for frequency, burning, discomfort, or incontinence. and Nursing will obtain urine sample for urinalysis and C&S when ordered. Aspiration: Clinical staff will monitor for coughing, drooling, congestion., Speech will evaluate swallowing and dsyphasia. and Nursing will monitor patient swallowing during meals. Falls: Patient will be evaluated for Fall Precautions and Patient will be placed on Fall Precautions as indicated per protocol. Skin Breakdown: Nursing will assess skin daily using assessment tool. and Nursing will place on Skin Breakdown Precautions as indicated. Pain: Clinical staff will assess patient's pain level per protocol., Medications will be given, if needed, and the pain level reassessed. and Other methods: Massage, distraction, decrease stimulus, etc. used PRN. Plan of Care Patient requires physician specializing in physical medicine and rehab oversight to provide close medical supervision of rehab issues including: Pain Management, Sleep Problems, Bowel and Bladder, Medical and co-morbidity Management, DVT prophylaxis, Rehabilitation Leadership and Coordination of treatment team Patient needs Physical Therapy: For a minimum of 1 hour and At least 5 out of 7 days Patient needs Physical Therapy to improve:: Mobility, Strengthening, Transfers, Stretching, ROM, Endurance, Stairs, Gait and Balance Patient needs Occupational Therapy: For a minimum of 1 hour and At least 5 out of 7 days Patient needs Occupational Therapy to improve ADL's incl.: Eating, Grooming, Bathing, Dressing, Toileting, Toilet transfers, Community Reintegration, Higher functioning activities, Household tasks, Adaptive Equipment, Splinting and Other activities as determined Patient requires speech therapy: For a minimum of 1 hour and At least 5 out of 7 days Patient requires speech therapy for: Swallowing, Cognition, Language Skills and Compensatory Strategies Patient requires 24/ Rehabilitation Nursing for: Pain Issues, Identifying and preventing risk factors, Monitoring and reporting current medical conditions, Assisting with ambulation, transfer, and all ADL's, Teaching patients about disease process and medications, Family teaching, Providing safe environment, Bowel and Bladder Issues, Skin integrity and Medication Management Patient needs Machine Trimmer/ Case Management for: Discharge Planning, Arranging Home Equipment or Services and Family Interventions Patient needs Dietary and Nutrition Services for: Adequate Nutrition, Nutritional Supplements and Nutritional Education Goals Goals Patient will remain: free from falls Patient will perform eating at: MOD I level of assist. Patient will perform bed mobility at: MOD I level of assist. Patient will complete transfers from bed to chair at: MOD I level of assist. Patient will ambulate: - (600 feet using least restrictive device on various surfaces) Patient will complete upper body dressing at: MOD I level of assist. Patient will complete lower body dressing at: MOD I level of assist. (Using adaptive equipment as needed) Patient will complete toilet transfer at: MOD I level of assist. Patient will complete toileting at: MOD I level of assist. Patient will perform bathing at: MOD I level of assist. (Upper body bathing independently and lower body bathing at mod I with adaptive equipment as needed) Patient will perform Tub/Shower transfer at: - (Supervision) Patient will complete grooming at: MOD I level of assist. (While standing at the sink) Patient will achieve: - (12 steps using 1 handrail with supervision) Patient will have pain level of: of 3 or less Patient's skin will: remain intact Patient will receive: adequate nutrition. Discharge Planning Pt Prognosis for Sig. Practical Improv. w/in Reasonable Time: Good Estimated Length of stay (days): 28 Anticipated D/C Destination: Home with Home Health Was Preadmission Assessment Accurate?: Yes
[2024-09-24 14:02] LABS: Absolute Lymphocyte Count 0.81 X10^3/uL (0.83-4.51); Absolute Neutrophil Count 6.7 X10^3/uL (2.0-7.7); Basophil# 0.05 X10^3/uL; Basophil% 0.6 % (0-1); Eosinophil# 0.21 X10^3/uL; Eosinophils% 2.5 % (0-5); Hemoglobin 14.3 g/dL (13.0-16.5); Lymphocyte # 0.81 X10^3/ul (0.83-4.51); Lymphocyte % 9.7 % (19-41); Mean Corpuscular Hgb 31.1 pg (27.0-32.0); Mean Corpuscular Volume 91.3 fL (80-94); Mean Platelet Vol. 9.3 fl (6.2-12.0); Monocyte# 0.54 X10^3/uL; Monocyte% 6.5 % (0-10); NRBC Flagged by Analyzer 0 % (0-5); Neutrophil % 80.1 % (47-70); Platelet Count 192 K/mm3 (150-450); RBC Distribution Width CV 12.9 % (11.6-14.6); RBC Distribution Width SD 42.7 fl (35.1-43.9); White Blood Count 8.4 K/mm3 (4.4-11.0)
[2024-09-24 14:33] LABS: ALB/GLOB Ratio 1.5 RATIO (0.9-2.4); AST(SGOT) 33 U/L (<=37); Alanine Aminotransfer ALT/SGPT 21 U/L (<=46); Alkaline Phosphatase 88 U/L (40-129); Anion Gap 11 (5-15); BUN 16 mg/dL (4-19); BUN/Creat Ratio 9.7 RATIO (10-20); Calcium,Total 8.1 mg/dL (7.6-11.0); Carbon Dioxide 24.3 mmol/L (21.0-32.0); Chloride 104 mmol/L (98-108); Creatinine, Serum 1.59 mg/dL (0.70-1.20); EST Glomerular Filtration Rate 44 (>60); Estimated Creatinine Clearance 33.53 ml/min (50-250); Globulin 2.6 g/dL (2.2-4.2); Glucose 114 mg/dL (70-99); Magnesium 1.7 mg/dL (1.5-2.2); Phosphorus 2.8 mg/dL (2.7-4.5); Potassium 3.6 mmol/L (3.3-5.1); Protein, Total 6.5 g/dL (5.9-8.4); Sodium Level 140 mmol/L (133-145); Total Bilirubin 0.49 mg/dL (0.00-1.30)
[2024-09-24] MEDS: oxyCODONE 5 MG Tablet PO (17:52)
[2024-09-24] MEDS: Acetaminophen 325 MG Tablet 650 MG PO (17:52)
[2024-09-24 18:00] VITALS: BP 146/78; PULSE 62; RESP 16; TEMP 36.6; O2SAT 97
[2024-09-24] MEDS: Ipratropium Bromide 0.06% NASAL SPRAY 2 SPRAY NASAL (21:33)
[2024-09-24] MEDS: Atorvastatin Calcium 40 MG Tablet PO (21:34)
[2024-09-25] MEDS: Enoxaparin 40 MG/0.4 ML Syringe SC (05:04)
[2024-09-25] MEDS: Levothyroxine 25 MCG TABLET PO (05:04)
[2024-09-25 05:23] VITALS: BMI 30.6
[2024-09-25 06:00] VITALS: BP 164/83; PULSE 62; RESP 16; TEMP 37.1; O2SAT 95
[2024-09-25 06:30] VITALS: O2SAT 95
[2024-09-25] MEDS: Ipratropium Bromide 0.06% NASAL SPRAY 2 SPRAY NASAL ×2 (07:40→20:36)
[2024-09-25] MEDS: Potassium Chloride Oral Tablet 20 MEQ PO (07:41)
[2024-09-25] MEDS: Escitalopram Oxalate 10 MG Tablet PO (07:42)
[2024-09-25] MEDS: Colestipol 1 GM TABLET PO ×2 (07:42→20:37)
[2024-09-25] MEDS: Ensure Plus High Protein 120 ML LIQUID PO ×3 (07:42→16:49)
[2024-09-25] MEDS: Aspirin 81 MG TAB.CHEW PO (07:42)
[2024-09-25] MEDS: amLODIPine 10 MG Tablet PO (07:44)
[2024-09-25] MEDS: oxyCODONE 5 MG Tablet PO (17:51)
[2024-09-25 18:00] VITALS: BP 126/83; PULSE 75; RESP 17; TEMP 36.8; O2SAT 98
[2024-09-25] MEDS: Atorvastatin Calcium 40 MG Tablet PO (20:37)
[2024-09-25] MEDS: Loperamide 2 MG Capsule 4 MG PO (20:37)
[2024-09-26] MEDS: Levothyroxine 25 MCG TABLET PO (05:01)
[2024-09-26] MEDS: HYDROcodone Bitartrate/Apap 5/325 Tablet PO ×3 (05:01→17:10)
[2024-09-26] MEDS: Enoxaparin 40 MG/0.4 ML Syringe SC (05:01)
[2024-09-26 05:15] VITALS: BP 144/99; BP 157/89; BP 158/92; PULSE 61; PULSE 87; PULSE 95
[2024-09-26 05:17] VITALS: RESP 18; TEMP 36.6; O2SAT 95
[2024-09-26] MEDS: Aspirin 81 MG TAB.CHEW PO (07:58)
[2024-09-26] MEDS: Potassium Chloride Oral Tablet 20 MEQ PO (07:58)
[2024-09-26] MEDS: Ensure Plus High Protein 120 ML LIQUID PO ×2 (07:58→17:10)
[2024-09-26] MEDS: amLODIPine 10 MG Tablet PO (07:59)
[2024-09-26] MEDS: Escitalopram Oxalate 10 MG Tablet PO (08:00)
[2024-09-26] MEDS: Ipratropium Bromide 0.06% NASAL SPRAY 2 SPRAY NASAL ×2 (08:00→20:41)
[2024-09-26 08:15] VITALS: BP 141/62; PULSE 70
[2024-09-26] MEDS: Colestipol 1 GM TABLET PO ×2 (11:56→21:44)
[2024-09-26 18:00] VITALS: BP 150/80; PULSE 76; RESP 16; TEMP 36.4; O2SAT 92
[2024-09-26 20:15] VITALS: BMI 30.6
[2024-09-26] MEDS: Loperamide 2 MG Capsule 4 MG PO (20:43)
[2024-09-26] MEDS: Atorvastatin Calcium 40 MG Tablet PO (20:43)
[2024-09-26 22:00] VITALS: PULSE 76; RESP 16; O2SAT 93
[2024-09-27] MEDS: Levothyroxine 25 MCG TABLET PO (05:12)
[2024-09-27] MEDS: Enoxaparin 40 MG/0.4 ML Syringe SC (05:12)
[2024-09-27] MEDS: HYDROcodone Bitartrate/Apap 5/325 Tablet PO ×3 (05:12→17:43)
[2024-09-27 06:00] VITALS: BP 164/86; PULSE 68; RESP 17; TEMP 37.1; O2SAT 96
[2024-09-27] MEDS: Aspirin 81 MG TAB.CHEW PO (07:46)
[2024-09-27] MEDS: Ensure Plus High Protein 120 ML LIQUID PO ×3 (07:46→17:43)
[2024-09-27] MEDS: amLODIPine 10 MG Tablet PO (07:46)
[2024-09-27] MEDS: Escitalopram Oxalate 10 MG Tablet PO (07:46)
[2024-09-27] MEDS: Ipratropium Bromide 0.06% NASAL SPRAY 2 SPRAY NASAL ×2 (07:48→20:51)
[2024-09-27] MEDS: Potassium Chloride Oral Tablet 20 MEQ PO (07:48)
[2024-09-27 07:52] VITALS: BP 140/80; PULSE 80
--- NOTE | 2024-09-27 08:51 | PN_ITS ---
Subjective Subjective Afebrile VSS -blood pressure over the past 24 hours has ranged from 140/88 to 164/86. The only antihypertensive is amlodipine 10 mg daily Maintaining appropriate oxygen saturation on RA Oral intake - FOOD good FLUIDS proved Last bowel movement was yesterday. No diarrhea. Discussed with nursing - no problems that need addressed. Reviewed the THERAPY notes Medication list reviewed. Pain in the abd is adequately controlled. Denies CP, SOB, lightheadedness, cephalgia, N/V, dysuria and calf pain. Objective Data Objective Data Vital Signs: Vital Signs Temp Pulse Resp BP Pulse Ox O2 Del Method 98.8 F 80 17 140/80 H 96 Room Air 09/27/24 06:00 09/27/24 07:52 09/27/24 06:00 09/27/24 07:52 09/27/24 06:00 09/27/24 06:00 Oxygen Delivery Method Room Air Weight: 167 lb 6.4 oz Body Mass Index (BMI) 30.6 Intake & Output: Intake and Output for Last 24 Hours 09/25/24 09/26/24 09/27/24 23:59 23:59 23:59 Intake Total 590 / 890 1940 / 1940 520 / 520 Output Total 300 / 700 850 / 850 600 / 600 Balance 290 / 190 1090 / 1090 -80 / -80 Lab / Micro Data 09/24/24 13:44 09/28/24 06:35 Physical Exam Const alert and no apparent distress General Appearance: cooperative Resp Resp Narrative: Few coarse bibasilar crackles. No wheezing. Not tachypneic. No conversational dyspnea. Normal respiratory effort. Effort and Inspection: able to speak in complete sentences Cardio regular rate, regular rhythm, no murmurs, no rub and no gallops Cardio Narrative: No ectopy GI normal to inspection, nondistended, normoactive bowel sounds, soft to palpation and non-tender GI Narrative: No guarding with palpation Extremity no calf tenderness and no pedal edema Psych Psych Narrative: Pleasant and cooperative with staff during the day. Gets somewhat agitated when his comes in......asking when he is going home.....tells me he has things he needs to take care of. also asking how long he has to stay here and will he [facility] [place]. I told her that that will be discussed at his team meeting on Saturday. I also related that we can notn hold him against his will and if she wants to take him home we can discuss that Saturday. Sleeping OK. Assessment & Plan Assessment/Plan (1) Debility: (2) Cerebellar stroke: (3) Gait instability: (4) Cognitive dysfunction: (5) ing: (6) History of malignant carcinoid tumor: (7) Short bowel syndrome: QUALIFIERS: Short bowel syndrome type: unspecified whether colon in continuity Qualified Code(s): K90.829 - Short bowel syndrome, unspecified (8) Hypothyroidism: QUALIFIERS: Hypothyroidism type: acquired Qualified Code(s): E 03.9 - Hypothyroidism, unspecified (9) Chronic narcotic use: (10) Chronic abdominal pain: (11) Chronic renal failure, stage 3 (moderate): QUALIFIERS: Chronic kidney disease stage 3 subtype: unspecified whether 3a or 3b Qualified Code(s): N18.30 - Chronic kidney disease, stage 3 unspecified (12) History of depression: (13) Obesity (BMI 30.0-34.9): (14) Allergic rhinitis: QUALIFIERS: Allergic rhinitis trigger: unspecified Allergic rhinitis seasonality: non-seasonal Qualified Code(s): J30.89 - Other allergic rhinitis (15) Dyslipidemia: (16) Benign essential HTN: (17) Grade I diastolic dysfunction: (18) Mild concentric left ventricular hypertrophy: PLAN: Plan 1. Continue therapy 2. Add lisinopril 2.5 mg daily to his current drug regimen. 3. Add Mag CL to the current drug regimen to get the Mag up to around 2. Charges/Coding Visit Charges Inpatient E&M: 82225 Subs Hosp L1
[2024-09-27] MEDS: Magnesium Chloride 64 MG Delay Rel.Tablet 128 MG PO (10:05)
[2024-09-27] MEDS: Colestipol 1 GM TABLET PO (10:05)
[2024-09-27] MEDS: Lisinopril 2.5 MG Tablet PO (10:05)
[2024-09-27 13:39] VITALS: BMI 30.6
[2024-09-27 15:00] VITALS: BP 135/64; PULSE 60
--- NOTE | 2024-09-27 17:00 | NURSING ---
Patient and requested some of his anti diarrheals to be held today and done so per their request. Patient felt like he was not having BM's like he normally does. Will monitor.
[2024-09-27 18:00] VITALS: BP 121/78; PULSE 60; RESP 16; TEMP 36.5; O2SAT 95
[2024-09-27] MEDS: Atorvastatin Calcium 40 MG Tablet PO (20:52)
[2024-09-27 20:54] VITALS: BP 131/78; PULSE 57
[2024-09-28] MEDS: Enoxaparin 40 MG/0.4 ML Syringe SC (06:12)
[2024-09-28] MEDS: HYDROcodone Bitartrate/Apap 5/325 Tablet PO ×3 (06:13→17:47)
[2024-09-28] MEDS: Levothyroxine 25 MCG TABLET PO (06:13)
[2024-09-28 06:19] VITALS: BP 157/83; PULSE 69; RESP 15; TEMP 36.6; O2SAT 95
[2024-09-28 07:18] LABS: Albumin, Serum 3.9 g/dL (3.4-4.8); Anion Gap 11 (5-15); BUN 23 mg/dL (4-19); BUN/Creat Ratio 14.3 RATIO (10-20); Calcium,Total 8.5 mg/dL (7.6-11.0); Carbon Dioxide 23.4 mmol/L (21.0-32.0); Chloride 106 mmol/L (98-108); Creatinine, Serum 1.64 mg/dL (0.70-1.20); EST Glomerular Filtration Rate 42 (>60); Estimated Creatinine Clearance 32.61 ml/min (50-250); Glucose 95 mg/dL (70-99); Phosphorus 3.1 mg/dL (2.7-4.5); Potassium 4.1 mmol/L (3.3-5.1); Sodium Level 140 mmol/L (133-145)
[2024-09-28] MEDS: Potassium Chloride Oral Tablet 20 MEQ PO (08:00)
[2024-09-28] MEDS: Escitalopram Oxalate 10 MG Tablet PO (08:00)
[2024-09-28] MEDS: Lisinopril 2.5 MG Tablet PO (08:00)
[2024-09-28] MEDS: Magnesium Chloride 64 MG Delay Rel.Tablet 128 MG PO (08:00)
[2024-09-28] MEDS: Aspirin 81 MG TAB.CHEW PO (08:00)
[2024-09-28] MEDS: Ensure Plus High Protein 120 ML LIQUID PO ×2 (08:01→13:10)
[2024-09-28] MEDS: Ipratropium Bromide 0.06% NASAL SPRAY 2 SPRAY NASAL ×2 (08:01→20:37)
[2024-09-28] MEDS: amLODIPine 10 MG Tablet PO (08:01)
[2024-09-28 08:05] VITALS: BP 135/77; PULSE 60
[2024-09-28 12:26] VITALS: BMI 30.6
[2024-09-28 17:00] VITALS: BP 134/72; PULSE 60; RESP 17; TEMP 36.7; O2SAT 95
[2024-09-28 19:28] VITALS: BMI 30.6
[2024-09-28] MEDS: Loperamide 2 MG Capsule 4 MG PO (20:36)
[2024-09-28] MEDS: Atorvastatin Calcium 40 MG Tablet PO (20:36)
[2024-09-28] MEDS: Colestipol 1 GM TABLET PO (21:48)
[2024-09-29] MEDS: HYDROcodone Bitartrate/Apap 5/325 Tablet PO ×3 (05:32→17:24)
[2024-09-29] MEDS: Enoxaparin 40 MG/0.4 ML Syringe SC (05:33)
[2024-09-29] MEDS: Levothyroxine 25 MCG TABLET PO (05:34)
[2024-09-29 05:50] VITALS: BP 162/93; BP 163/93; BP 174/83; PULSE 53; PULSE 65; PULSE 77
[2024-09-29 06:00] VITALS: BP 174/83; PULSE 53; RESP 15; TEMP 36.6; O2SAT 96
[2024-09-29] MEDS: Magnesium Chloride 64 MG Delay Rel.Tablet 128 MG PO (07:43)
[2024-09-29] MEDS: Ipratropium Bromide 0.06% NASAL SPRAY 2 SPRAY NASAL ×2 (07:43→20:53)
[2024-09-29] MEDS: Ensure Plus High Protein 120 ML LIQUID PO ×2 (07:43→11:15)
[2024-09-29] MEDS: Potassium Chloride Oral Tablet 20 MEQ PO (07:43)
[2024-09-29] MEDS: Lisinopril 2.5 MG Tablet PO ×2 (07:43→20:52)
[2024-09-29] MEDS: Loperamide 2 MG Capsule 4 MG PO ×2 (07:43→20:52)
[2024-09-29] MEDS: Colestipol 1 GM TABLET PO ×2 (07:43→20:52)
[2024-09-29] MEDS: Escitalopram Oxalate 10 MG Tablet PO (07:44)
[2024-09-29] MEDS: amLODIPine 10 MG Tablet PO (07:44)
[2024-09-29] MEDS: Aspirin 81 MG TAB.CHEW PO (07:44)
--- NOTE | 2024-09-29 12:51 | PCM.PROGNOTE ---
Subjective Subjective Bal was seen on team rounds today. His was present in the room. All questions were answered to their satisfaction. Afebrile VSS -blood pressure since Saturday has ranged from 134/72 to 174/83. BP is mostly controlled with occasional elevation.......mostly in the morning when he is awakening. Heart rate has ranged from 53-80. Orthostatics were negative today. He denied lightheadedness. Maintaining appropriate oxygen saturation on RA Oral intake - FOOD variable but mostly good. FLUIDS good Discussed with nursing - no problems that need addressed. Was not impulsive last night and slept well. Reviewed the THERAPY notes Medication list reviewed. All recent lab was personally reviewed. The sodium is 140 and the potassium is 4.1. The BUN is 23 with a creatinine of 1.64 which is within his baseline. Phosphorus is now normal without supplementation. Calcium is within normal limits. Objective Data Objective Data Vital Signs: Vital Signs Temp Pulse Resp BP Pulse Ox O2 Del Method 97.8 F 53 L 15 174/83 H 96 Room Air 09/29/24 06:00 09/29/24 06:00 09/29/24 06:00 09/29/24 06:00 09/29/24 06:00 09/29/24 06:00 Oxygen Delivery Method Room Air Weight: 167 lb 6.4 oz Body Mass Index (BMI) 30.6 Intake & Output: Intake and Output for Last 24 Hours 09/27/24 09/28/24 09/29/24 23:59 23:59 23:59 Intake Total 1380 / 1380 1545 / 1545 400 / 400 Output Total 1650 / 1650 1200 / 1200 500 / 500 Balance -270 / -270 345 / 345 -100 / -100 Lab / Micro Data 09/24/24 13:44 09/28/24 06:35 Physical Exam Const alert and no apparent distress General Appearance: cooperative Resp Resp Narrative: Few coarse bibasilar crackles. No wheezing. Not tachypneic. No conversational dyspnea. Normal respiratory effort. Effort and Inspection: able to speak in complete sentences Cardio regular rate, regular rhythm, no murmurs, no rub and no gallops Cardio Narrative: No ectopy GI normal to inspection, nondistended, normoactive bowel sounds, soft to palpation and non-tender GI Narrative: No guarding with palpation Extremity no calf tenderness and no pedal edema Assessment & Plan Assessment/Plan (1) Debility: (2) Cerebellar stroke: PLAN: cryptogenic. (3) Gait instability: (4) Cognitive dysfunction: (5) History of malignant carcinoid tumor: (6) Obesity (BMI 30.0-34.9): (7) Dyslipidemia: (8) Benign essential HTN: PLAN: Plan 1. Bal and his would like him discharged tomorrow to home with [facility] for therapy. did not feel that family training would be beneficial to her and passed on that. 2. DC Lovenox 3. AM BP is elevated. Will change the timing of the Lisinopril and give it at HS. Goal for BP is less than 140/80. 4. [facility]. Charges/Coding Visit Charges Inpatient E&M: 92768 Subs Hosp L2
--- NOTE | 2024-09-29 13:42 | CASEMGMT ---
Social Work IDT met with patient and for Team meeting. Discussed patient's progress in PT/OT/ST/SN. Educated to Medicare approval of 15 days, EDC 10/08. Pt nor happy with that outcome and pt remains fixated on discharging home now. IDT has collectively explained to pt since admission that pt can choose to DC at any time, however, IDT wants to ensure pt's safety at DC. SW explained it is beneficial to pt to remain for the allotted days for optimal improvement. Pt denied. also denied. Dr and FADY inquired if is comfortable caring for pt at home. SW offered for to attend therapy training prior to DC. replied, I think I can provide what he needs and denied training. stated she has called the [facility] to see what he what he needs to DC. SW explained this worker assists with DC plans, including skilled HHC and nonskilled [employer]. having difficulty understanding the differences between skilled and nonskilled HHC, and the coverage between Medicare part A and the [facility]. SW attempted multiple times to educate to explore the agency names to assist with referrals at DC, but was not accepting on education. SW accepted and will problem solve coordination of services. inquired when the services would be in place to DC. SW explained pt received therapy today and pt cannot DC the same days as services, and uncertain when [facility] services will be coordinated. Pt and both stated they want to be discharged 09/[address]. SW to plan for DC 09/30. - SW returned to room with pt and to complete DC paperwork. and pt inquired further about HHC services being coordinated. SW reeducated to skilled HHC gets coordinated through with this worker and Medicare part A, and nonskilled HHC is coordinated through the [facility]. The reiterated we really liked the people who did therapy through [facility] but could not recall an agency name. SW offered to provide list of agencies, but interjected and stated she will look in the pile of paperwork at home. SW provided with direct contact information. SW to contact the [facility] to determine nonksilled HHC. stated that was through [facility]. SW appreciative of information and will coordinate. and pt expressed appreciation. - FADY phoned Kathy mejia of [facility] [employer] [employer]. Received VA CM information for Behzad Ng ([phone] ext. [phone]). SW left VM with requests to increase aide hours and inquired about palliative services, if active, per chart review's information. FADY will continue to follow. Plan: DC home with 09/30, HHC PT/OT/ST/SN/SW, [facility] provided nonskilled HHC and palliative care. Linn Julien ACUTE CARE PHYSICIAN MASTER BARBER
[2024-09-29 14:32] VITALS: BMI 30.6
--- NOTE | 2024-09-29 14:45 | DCINST_ITS ---
Discharge Instructions Diet Discharge Diet: Low fat / Low cholesterol and - (Low-salt) DC O2, CPAP, BIPAP needs Home O2 Discharge instructions: No Dressing / Incision Discharge Activity: May Not Drive and Use Walker (Or a cane. Therapy has been having a hand on him with wmbulation and a gait belt. Currently contact guard assist. ) Weight Bearing Status: Full weight bearing Dressing / Incision Call your doctor if you observe: Fever of 101 or Higher, Inability to urinate, Shortness of breath, Dizziness, Fainting spells, Swelling in the ankles, Chest pain, Increased palpitations (irregular heartbeat), Calf discomfort, Uncontrolled pain and - (STROKE symptoms: facial droop, slurred speech, inability to get words out, weakness on 1 side of the body and not the other, numbness on 1 side of the body and not the other, inability to maintain your balance sitting or standing, vertigo. ) Follow Up Care When: You will need to follow up with your PCP at the [facility] and should also have follow up with neurology. You should have a cardiac event monitor following discharge to rule out paroxysmal AFIB.....the [facility] can arrange this for you. Test Results: Test results from this visit will be discussed in further detail at your follow- up appointment, if applicable. Pending Tests Upon Discharge: none Discharge Plan Admission Admit Date/Time: 09/23/24 18:05 Primary Reason for Your Visit: POST STROKE DEBILITY Attending Provider: Pamella Zuniga Primary Care Provider: [facility] Instructions Patient Instructions: AFib Additional Instructions / Restrictions: 1. We had to add another blood pressure pill to your drug regimen for uncontrolled high BP. The new medication is called Lisinopril and you will take this once a day at bedtime. 2. You have been getting shots in the abdomen of a drug called Lovenox to help prevent blood clots in your leg. You will not be taking this at home. 3. Because of the stroke you will be taking a drug called Lipitor (also called atorvastatin) to lower your cholesterol. Recommendations for people with strokes is to keep the LDL (bad cholesterol) 70 or less. Your LDL was 91 when you presented to the hospital with stroke symptoms. Your doctor will want to recheck your cholesterol and the liver tests in 4-6 weeks. 4. The neurologist who consulted on you while you were in the hospital recommended you get a heart monitor at discharge from the hospital. Some strokes are caused by a problem with the rhythm of the heart called atrial fibrillation (also called AFIB). Some people have palpitations/racing heart/lightheadedness when they are in AFIB and others have no symptoms at all. The heart monitor will continuously monitor your heart rhythm to see if you are having any AFIB. AFIB is a risk factor for stroke and if you have AFIB you will need to be started on an anticoagulant to help prevent additional strokes going forward. Discharge Orders/Prescriptions Prescriptions: New hydrocodone-acetaminophen 5-325 mg Tablet 1 tab PO 0600,1200,1800 7 Days Qty: 21 0RF lisinopril 2.5 mg Tablet 2.5 mg PO HS Qty: 30 0RF magnesium chloride 64 mg magnesium tablet 64 mg PO DAILY Qty: 30 0RF Continued amlodipine 10 mg Tablet 10 mg PO DAILY 90 Days Qty: 90 0RF loratadine 10 mg Tablet 10 mg PO DAILY octreotide acetate 30 mg suspension 30 mg IM Q28D Patient Comments: colestipol 1 gram tablet 1 g PO BID Patient Comments: RX SIG STATES 2QD, PT CAN ONLY TOLERATE 1QD Xermelo 250 mg tablet 250 mg PO TID Rx Instructions: must administer with a meal/food loperamide [Diamode] 2 mg tablet 4 mg PO BID levothyroxine [Levo-T] 25 mcg tablet 25 mcg PO DAILY aspirin 81 mg tablet 81 mg PO DAILY escitalopram oxalate 10 mg tablet 10 mg PO DAILY potassium chloride 20 mEq tablet extended release 20 meq PO DAILY acetaminophen 325 mg tablet 650 mg PO Q6H PRN (Reason: pain/fever) atorvastatin 40 mg Tablet 40 mg PO QHS Qty: 30 0RF Rx Instructions: Take this medication at bedtime Discontinued enoxaparin 40 mg/0.4 mL Syringe 40 mg subcut DAILY Qty: 0 0RF Ensure Plus High Protein 0.08 gram-1.5 kcal/mL Liquid 120 ml PO TIDCM Qty: 0 0RF Referrals / Follow Up: Brenda Torres NP-C [Med Staff - Adv Practice Prof] - 10/08/24 9:00 am Nasim Hines NP-C [Non-Staff] - 10/14/24 2:00 pm Disposition Disposition (needs filled in before D/C Order can be placed): Home Health Serv[facility]
[2024-09-29 17:28] VITALS: BP 131/67; PULSE 61; RESP 16; TEMP 36.8; O2SAT 96
[2024-09-29 20:30] VITALS: PULSE 62; O2SAT 95
[2024-09-29] MEDS: Atorvastatin Calcium 40 MG Tablet PO (20:53)
[2024-09-30 04:33] VITALS: BMI 30.6
[2024-09-30] MEDS: HYDROcodone Bitartrate/Apap 5/325 Tablet PO ×2 (05:11→12:22)
[2024-09-30] MEDS: Levothyroxine 25 MCG TABLET PO (05:12)
[2024-09-30 05:33] VITALS: BP 161/89; PULSE 62; RESP 18; TEMP 36.4; O2SAT 95
--- NOTE | 2024-09-30 08:02 | EX.DISCHREH ---
Providers Date of Admission: 09/23/24 Date of Discharge: 09/30/24 Primary Care Physician: [facility] Reason For Visit: DEBILITY Diagnosis Discharge Diagnosis (1) Debility: Status: Acute Code(s): R53.81 - Other malaise (2) Cerebellar stroke: Status: Acute Code(s): I63.9 - Cerebral infarction, unspecified Plan: Cryptogenic. R cerebellum. Continue ASA and Atorvastatin. Goal BP is less than 140/80. BP in AM elevated. Lisinopril added to the drug regimen (already was on Amlodipine at admission to rehab) at . (3) Gait instability: Status: Acute Code(s): R26.81 - Unsteadiness on feet (4) Cognitive dysfunction: Status: Acute Code(s): F09 - Unspecified mental disorder due to known physiological condition (5) History of malignant carcinoid tumor: Status: Chronic Code(s): Z85.9 - Personal history of malignant neoplasm, unspecified Plan: Continue to follow up at the CT (6) Obesity (BMI 30.0-34.9): Status: Chronic Code(s): E66.811 - Obesity, class 1 (7) Dyslipidemia: Status: Chronic Code(s): E78.5 - Hyperlipidemia, unspecified Plan: Continue Atorvastatin. Recheck a lipid panel and a liver panel in 4-6 weeks. (8) Benign essential HTN: Status: Chronic Code(s): I10 - Essential (primary) hypertension Plan: Not adequately controlled at [place] from rehab. He has LVH and stage I diastolic dysfunction so I suspect it has not been adequately controlled as OP. the BP during the day is less than 140/80 but, BP in the AM upon awakening has been ranging from 164/86 to 161/89. HR ranges from 53 -69 and he is not on anything to block the AV node so can not use a beta phuong. He was started on Lisinopril 2.5 mg at on 09/27/2024. He has a BP cuff at home and I have asked him to check a BP upon arising in the AM and a few times during the day and keep a record. He will bring the record with him to his next appt with his PCP. Goal BP is less than 140/80. Plan 1. DC home with [facility] on 09/30/24. 2. follow up with PCP and neurology 3. Recheck lipids and liver profile in 4-6 weeks. 4. Continue Atorvastatin and ASA daily. 5. He needs an event monitor. Will defer ordering this to [facility] PCP. Medications at Discharge Home Medications amlodipine 10 mg tablet 10 mg PO DAILY Blood pressure 90 days #90 tabs 09/20/20 loratadine 10 mg tablet 10 mg PO DAILY ALLERGIES 09/21/21 aspirin 81 mg tablet 81 mg PO DAILY heart health 09/20/24 colestipol 1 gram tablet 1 g PO BID cholesterol 09/20/24 escitalopram oxalate 10 mg tablet 10 mg PO DAILY depression 09/20/24 levothyroxine 25 mcg tablet (Levo-T) 25 mcg PO DAILY thyroid 09/20/24 loperamide 2 mg tablet (Diamode) 4 mg PO BID diarrhea 09/20/24 octreotide acetate 30 mg IM Q28D cancer 09/20/24 potassium chloride 20 mEq tablet,extended release 20 meq PO DAILY supplement 09/20/24 telotristat ethyl 250 mg tablet (Xermelo) 250 mg PO TID diarrhea 09/20/24 acetaminophen 325 mg tablet 650 mg PO Q6H PRN pain/fever 09/23/24 atorvastatin 40 mg tablet 40 mg PO QHS cholsterol #30 tabs 09/29/24 hydrocodone-acetaminophen 5-325mg 5mg-325mg 1 tab PO 0600,1200,1800 7 days #21 tabs 09/29/24 lisinopril 2.5 mg tablet 2.5 mg PO HS #30 tabs 09/29/24 magnesium chloride 64 mg (magnesium chloride) tablet 64 mg PO DAILY #30 tabs 09/29/24 Hospital Course Operations None Procedures 2-D Echocardiogram (ormal LV size. Mild concentric left ventricular hypertrophy. Left ventricular systolic function is normal. The left ventricular ejection fraction is 60 %. 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 He had a mechanical fall which precipitated the visit to the emergency department. He additionally complained of a headache. He actually had vertigo in the ED when attempting to move. A stat noncontrast CT brain showed no acute findings. There was generalized brain atrophy and small vessel ischemic disease. CTA of the head and neck showed mild scattered atherosclerotic calcification of the anterior and posterior intracranial and extracranial circulation without hemodynamically significant stenosis. CT scan of the abdomen and pelvis showed a nonspecific lobulated isodense lesion in the pelvis measuring up to 3.4 cm. There was a mild esophageal hiatal hernia and fecal retention in the colon consistent with constipation. He had colonic diverticulosis with no evidence of diverticulitis. Chest x-ray showed mild basilar atelectasis with no evidence of pneumonia or pleural effusion. There were no acute findings. He was admitted to the hospitalist service for concern for a posterior circulation CVA. MRI of the brain done on 09/21/2024 showed an acute nonhemorrhagic infarct in the right cerebellum. There was mild to moderate nonspecific chronic white matter changes and mild generalized atrophy. Hemoglobin A1c was normal at 5.5. Total cholesterol was 175 with an LDL of 91 and an HDL of 61. Transthoracic echocardiogram showed mild concentric left ventricular hypertrophy with an EF of 60%. There was stage I diastolic dysfunction. There was no significant valvular heart disease and a bubble study was not done. Teleneurology consult was obtained and daily antiplatelet medication was recommended. They also recommended starting Lipitor at 40 mg daily for an LDL of 91. He was evaluated by therapy and had an unsteady gait. He was agreeable to acute rehab at discharge and he was transferred to the acute inpatient rehab unit at [facility] in the evening on 09/23/2024 for 3 hours of therapy daily to restore function/independence at or near his level prior to the stroke. Itzel had some confusion and sundowning initially at presentation to rehab. This resolved over the next few days and he was less impulsive and more cooperative at night. He scored a 42/50 on the intial BCAT (brief cognitive assessment tool) at admission indicating mild cognitive dysfunction. Primary deficits were memory and recall. 1 day prior to discharge he was administered a hypothetical problem-solving scenario exercise and was able to provide feasible and safe solutions with 70% accuracy on that day. He had a Cognitive Log test done 1 day prior to DC and scored 25/30. Modified Jose M score at admission to rehab was 3 and it is 3 at discharge from rehab. He requires cues for hand placement on the front wheeled walker 50% of the time. He does better with a straight cane for hand placement and is contact-guard assist at the time of discharge. He is able to do 8 stands in 30 seconds using his upper extremities to rise. He is unsteady on his feet without support of the front wheeled walker and is contact-guard assist at discharge. He is able to ascend/descend 5 steps of various heights with 1 handrail at contact-guard assist. The left lower extremity is still weak and the left knee is soft but, does not buckle. He is ambulated up to 315 feet with a front wheeled walker at contact-guard assist and is able to ambulate 60 feet with a straight cane at contact-guard assist/min assist. 09/29/24 was the first day he was trialed with a SC. He is independent with eating and supervision/set up with grooming and upper body dressing. He is contact-guard assist for lower body dressing. He requires minimal assistance with bathing. He is contact-guard assist with toileting, toilet transfer and tub/shower transfer. BP is not adequately controlled at the time of DC from rehab. BP upon arising in the AM is consistently above goal of 140/80. He was taking amlodipine 10 mg daily at the time of the stroke. I suspect the BP was not adequately controlled as an OP since he has LVH and diastolic dysfunction. He is bradycardic in the 50's at times and he is not on any medications to block the AV node. He was started on Lisinopril 2.5 mg at . BP in the AM is still high at the time of DC from rehab. He has only had 3 doses of Lisinopril. I asked him to take his BP upon arising in the AM and a few times during the day and to record the results. He will take this record to his next appt with his PCP. Goal BP is less than 140/80. The CVA is considered cryptogenic at this time. MRI showed mild to moderate nonspecific chronic white matter changes likely secondary to small vessel ischemic change. The stroke may be related to small vessel disease but, it is important to r/o pAF. Neurology recommended a event monitor at [place] from rehab. since he is going to be following up at the CT I have deferred ordering this test to his PCP so the results will go to someone who is going to follow up with him and can refer to cardiology if necessary. Itzel was discharged home on 09/30/24 at the request of Itzel and his . This is against my advice. His feels she can provide the assistance he needs at home. She declined coming in for family training prior to [place]. He will have HHC at [place]. He is going to follow up with his PCP at [place]. He has an appt scheduled to follow up with neurology in [place] but, he may prefer to follow up with the CT. On PE at [place] there is a well circumscribed mass in the mid abd to the left of midline. It is NT and feels fairly superficial. He had a lot of fecal retention on the CT of the abd but, no mass mentioned. He routinely takes Imodium twice a day for short bowel S. Physical Exam Const alert, oriented x3 and no apparent distress Constitutional Narrative: Lying in bed resting when I entered the room. Aroused easily and was appropriate. Pleasant, makes good eye contact. Calm and not restless. General Appearance: cooperative and well kempt HEENT head/scalp atraumatic HEENT Narrative: Bilateral hearing aids. Tongue protrudes on the midline. Mucous membranes are somewhat dry. Eyes PERRL, EOMs intact bilaterally, conjunctivae normal and no scleral icterus Eyes Narrative: No discharge from the eyes. No mattering of the eye lashes. He has a few beats of nystagmus with extreme lateral gaze but is asymptomatic. Neck supple, No nodes and no carotid bruits General: trachea midline Chest Chest: symmetrical chest wall rise Resp Resp Narrative: Few coarse bibasilar crackles. No wheezing. Not tachypneic. No conversational dyspnea. Normal respiratory effort. Effort and Inspection: able to speak in complete sentences Cardio regular rate, regular rhythm, S1 normal heart sound, S2 normal heart sound, no murmurs, no rub and no gallops Cardio Narrative: No ectopy GI normal to inspection, nondistended, normoactive bowel sounds, soft to palpation and non-tender GI Narrative: No guarding with palpation. There is a well circumscribed oval shaped mass in the mid abd just to the left of the midline. CT of the abd an pelvis recently did not show a mass but, did show a lot of fecal retention. The area is NT to palpation. It was not mentioned on the DC summary from the hospital or the H&P at admission to the hospital. no CVA tenderness Narrative: Postvoid residuals are all less than 10. Back/Spine straight leg raise negative bilaterally Extremity no calf tenderness and no pedal edema Extremity Narrative: No clubbing and no cyanosis. Skin Rashes: no rashes Neuro oriented x3, CN's II-XII intact bilaterally, moves all extremities, no focal motor deficits and no sensory deficits noted Neuro Narrative: No visual field cuts. Nystagmus ( a few beats with extreme lateral gaze) but, denies vertigo. no extinction. Oriented to month, year, place and knows why he has been on rehab. ess impulsive than at admission. Confusion has improved. The problems with cognition are mostly with memory and recall now. 42/50 on BCAT at admission to rehab and 25/30 on the COG LOG at DC from rehab. Psych cooperative, affect normal, speech normal, denies hallucinations, denies homicidal ideation and denies suicidal ideation Weight / BMI Weight Weight: 167 lb 6.4 oz Body Mass Index (BMI) 30.6 ABG / Lab / Microbiology Data 09/24/24 13:44 09/28/24 06:35 Indicators for Scoring Admitted with or Primary Diagnosis of CVA/Stroke: Yes Hx of CVA/Stroke: Yes Modified Jose M Score MRS Score at time of Evaluation: 3-Moderate disability NIHSS NIHSS 1a. Level of Consciousness: 0 - Alert; keenly responsive 1b. LOC Questions: 0 - Answers BOTH questions correctly 1c. LOC Commands: 0 - Performs BOTH tasks correctly 2. Best Gaze: 0 - Normal 3. Visual: 0 - No visual loss 4. Facial Palsy: 0 - Normal symmetrical movements 5a. Left Arm: 0 - No drift; arm holds 90 (or 45) degrees for full 10 seconds 5b. Right Arm: 0 - No drift; arm holds 90 (or 45) degrees for full 10 seconds 6a. Left Le - No drift; leg holds 30-degree position for full 5 seconds 6b. Right Le - No drift; leg holds 30-degree position for full 5 seconds 7. Limb Ataxia: 0 - Absent 9. Best Language: 0 - No aphasia; normal 10. Dysarthria: 0 - Normal 11. Extinction and Inattention: 0 - No abnormality Total: 0 Stroke Questions Stroke Team Activated: No D/C Instructions Discharge Diet: Low fat / Low cholesterol and - (Low-salt) Weight Bearing Status: Full weight bearing Call your doctor if you observe: Fever of 101 or Higher, Inability to urinate, Shortness of breath, Dizziness, Fainting spells, Swelling in the ankles, Chest pain, Increased palpitations (irregular heartbeat), Calf discomfort, Uncontrolled pain and - (STROKE symptoms: facial droop, slurred speech, inability to get words out, weakness on 1 side of the body and not the other, numbness on 1 side of the body and not the other, inability to maintain your balance sitting or standing, vertigo. ) DC O2, CPAP, BIPAP Needs RN Home O2 qualification: No Data to Display Home O2 Discharge instructions: No Pending Tests Upon Discharge: none When: You will need to follow up with your PCP at the CT and should also have follow up with neurology. You should have a cardiac event monitor following discharge to rule out paroxysmal AFIB.....the CT can arrange this for you. Meaningful Use Info Meaningful Use Meaningful Use Diagnoses (Choose all that apply): Ischemic CVA CVA Therapy Assessed for PT,OT and/or ST?: Yes Ischemic Stroke Antithrombotic order at d/c?: Yes Dx of Atrial fib/flutter?: No Anticoagulant at discharge?: No Reason anticoagulant not ordered: Treatment not Indicated Statin Dosing Therapy Reference: STATIN DOSE THERAPY REFERENCE: * Patients > 75 years receive moderate or high dose statin therapy. * Patients 75 years or YOUNGER should receive HIGH intensity statin dose unless contraindicated. You will be required to document reason for non-treatment if statin daily dose does not meet guidelines. HIGH DOSE STATIN THERAPY DAILY Atorvastatin > than or = to 40 mg Rosuvastatin > than or = to 20 mg Amlodipine + Atorvastatin > than or = to 2.5/40 mg Ezetimibe + Simvastatin 10/80 mg Simvastatin 80mg Statins at discharge?: Yes Primary Dx Acute Ischemic CVA?: Yes IV thrombolytic ordered during stay?: No Reason IV thrombolytic not ordered: Procedure not Indicated Discharge Plan Admission Admit Date/Time: 09/23/24 18:05 Primary Reason for Your Visit: POST STROKE DEBILITY Attending Provider: Pamella Zuniga Primary Care Provider: [facility] Instructions Patient Instructions: AFib Additional Instructions / Restrictions: 1. We had to add another blood pressure pill to your drug regimen for uncontrolled high BP. The new medication is called Lisinopril and you will take this once a day at bedtime. Your BP when you wake up in the morning is still too high at discharge. You have only had 3 doses of this medication and it is too soon to increase the dose. Your BP may change once you are home and comfortable in your own space. I recommend that you take you BP when you first get up in the AM and a few times during the day. Record the results and take this with you to your next appt with your PCP. The goal for your BP is to keep it less than 140/80. 2. You have been getting shots in the abdomen of a drug called Lovenox to help prevent blood clots in your leg. You will not be taking this at home. 3. Because of the stroke you will be taking a drug called Lipitor (also called atorvastatin) to lower your cholesterol. Recommendations for people with strokes is to keep the LDL (bad cholesterol) 70 or less. Your LDL was 91 when you presented to the hospital with stroke symptoms. Your doctor will want to recheck your cholesterol and the liver tests in 4-6 weeks. 4. The neurologist who consulted on you while you were in the hospital recommended you get a heart monitor at discharge from the hospital. Some strokes are caused by a problem with the rhythm of the heart called atrial fibrillation (also called AFIB). Some people have palpitations/racing heart/lightheadedness when they are in AFIB and others have no symptoms at all. The heart monitor will continuously monitor your heart rhythm to see if you are having any AFIB. AFIB is a risk factor for stroke and if you have AFIB you will need to be started on an anticoagulant to help prevent additional strokes going forward. Please discuss this with your PCP so that an event monitor can be ordered. Discharge Orders/Prescriptions Prescriptions: New hydrocodone-acetaminophen 5-325 mg Tablet 1 tab PO 0600,1200,1800 7 Days Qty: 21 0RF lisinopril 2.5 mg Tablet 2.5 mg PO HS Qty: 30 0RF magnesium chloride 64 mg magnesium tablet 64 mg PO DAILY Qty: 30 0RF Continued amlodipine 10 mg Tablet 10 mg PO DAILY 90 Days Qty: 90 0RF loratadine 10 mg Tablet 10 mg PO DAILY octreotide acetate 30 mg suspension 30 mg IM Q28D Patient Comments: colestipol 1 gram tablet 1 g PO BID Patient Comments: RX SIG STATES 2QD, PT CAN ONLY TOLERATE 1QD Xermelo 250 mg tablet 250 mg PO TID Rx Instructions: must administer with a meal/food loperamide [Diamode] 2 mg tablet 4 mg PO BID levothyroxine [Levo-T] 25 mcg tablet 25 mcg PO DAILY aspirin 81 mg tablet 81 mg PO DAILY escitalopram oxalate 10 mg tablet 10 mg PO DAILY potassium chloride 20 mEq tablet extended release 20 meq PO DAILY acetaminophen 325 mg tablet 650 mg PO Q6H PRN (Reason: pain/fever) atorvastatin 40 mg Tablet 40 mg PO QHS Qty: 30 0RF Rx Instructions: Take this medication at bedtime Discontinued enoxaparin 40 mg/0.4 mL Syringe 40 mg subcut DAILY Qty: 0 0RF Ensure Plus High Protein 0.08 gram-1.5 kcal/mL Liquid 120 ml PO TIDCM Qty: 0 0RF Referrals / Follow Up: Brenda Torres NP-C [Med Staff - Adv Practice Prof] - 10/08/24 9:00 am Nasim Hines NP-C [Non-Staff] - 10/14/24 2:00 pm Disposition Disposition (needs filled in before D/C Order can be placed): Home Health Service Charges/Coding Visit Charges Inpatient E&M: 36503 Disch Hosp
[2024-09-30] MEDS: Loperamide 2 MG Capsule 4 MG PO (08:52)
[2024-09-30] MEDS: Ensure Plus High Protein 120 ML LIQUID PO (08:52)
[2024-09-30] MEDS: Magnesium Chloride 64 MG Delay Rel.Tablet 128 MG PO (08:54)
[2024-09-30] MEDS: Ipratropium Bromide 0.06% NASAL SPRAY 2 SPRAY NASAL (08:54)
[2024-09-30] MEDS: Potassium Chloride Oral Tablet 20 MEQ PO (08:54)
[2024-09-30] MEDS: amLODIPine 10 MG Tablet PO (08:55)
[2024-09-30] MEDS: Aspirin 81 MG TAB.CHEW PO (08:55)
[2024-09-30] MEDS: Colestipol 1 GM TABLET PO (08:55)
[2024-09-30] MEDS: Escitalopram Oxalate 10 MG Tablet PO (08:55)
--- NOTE | 2024-09-30 10:10 | CASEMGMT ---
Addendum entered by Linn Julien 09/30/24 12:50: [facility] can accept with SOC 10/01. Intake spoke with the . SW spoke with to update on [facility] acceptance and notify SW has not received return call from the NH. stated there are 12 hours/wk of aides and she has already spoken to [facility] [employer]. SW explained pt is ready to DC. 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 Original Note: Social Work SW had not received return call from NH. Nursing stated they spoke with PCP office and scheduled f/u appt, thus they are aware is discharging. SW reviewed pt's chart from past visits in attempt to determine past skilled HHC agencies. Pt was active with [facility] prior. SW phoned referral to [facility] for PT/OT/ST/SN/SW. Will await outcome. Linn BARCENASW
--- NOTE | 2024-09-30 16:34 | CASEMGMT ---
Social Work SW received return call from Behzad SHRESTHA at [facility]. Devonra stated pt once was approved 12 hours of [employer]OR OF PSYCHIATRY, but called and asked for a decrease to 6 hrs but for those hours to be respite (companionship hours, not personal care assistance). FADY explained pt was DC'd today, per pt/ request, after having a stroke. Inquired about request of aide hour increase. Edra agreed to contact the to evaluate and offer increase. FADY appreciative. Linn Julien [employer]AR OPERATOR
== END 2024-09-30 13:20 | disposition home health service (06) | DRG 57 ==
PROVIDERS: Admitting Provider Internal Medicine; Visit Provider Internal Medicine
DX: I69.318 Other symptoms and signs involving cognitive functions following cerebral infarction (principal); F05 Delirium due to known physiological condition; I13.0 Hypertensive heart and chronic kidney disease with heart failure and stage 1 through stage 4 chronic kidney disease, or unspecified chronic kidney disease; I67.82 Cerebral ischemia; I50.32 Chronic diastolic (congestive) heart failure; K90.829 Short bowel syndrome, unspecified; N18.30 Chronic kidney disease, stage 3 unspecified; E03.9 Hypothyroidism, unspecified; F32.A Depression, unspecified; G31.9 Degenerative disease of nervous system, unspecified; I69.398 Other sequelae of cerebral infarction; E66.811 Obesity, class 1; F41.9 Anxiety disorder, unspecified; E78.5 Hyperlipidemia, unspecified; K44.9 Diaphragmatic hernia without obstruction or gangrene; K57.30 Diverticulosis of large intestine without perforation or abscess without bleeding; H55.00 Unspecified nystagmus; Z85.9 Personal history of malignant neoplasm, unspecified; Z87.891 Personal history of nicotine dependence; Z79.01 Long term (current) use of anticoagulants; Z79.82 Long term (current) use of aspirin; Z79.890 Hormone replacement therapy; Z79.899 Other long term (current) drug therapy; Z91.85 Personal history of military service; R26.81 Unsteadiness on feet; Z68.30 Body mass index [BMI] 30.0-30.9, adult
CPT/HCPCS: 80053; 80069; 83735; 84100; 85025; 92507; 92523; 92610; 97110; 97112; 97116; 97129; 97130; 97162; 97166; 97530; 97535; A4216

== ENCOUNTER 2024-12-01 22:45 | Emergency (ER) | payer OTHER, SELFPAY ==
[2024-12-01 22:52] VITALS: BP 87/66; PULSE 113; RESP 18; TEMP 36.1; O2SAT 99
--- NOTE | 2024-12-01 23:34 | ED.VIS.GI ---
HPI HPI - GI History of Present Illness Chief Complaint: Abd Pain Informant: patient and spouse/S.O. Narrative Narrative: 79-year-old male has been having periumbilical/epigastric abdominal pain for the last 1 to 2 days, associated with nausea and vomiting no blood. Fewer smaller bowel movements than usual. He does not necessarily make the pain worse but it makes her more nauseated. No urinary issues. No dyspnea, chest pain, pain does not radiate to his back, no migration of pain. History of several abdominal surgeries including partial bowel resection for metastatic colon cancer and herniorrhaphies. [facility] Medical History Dyslipidemia Short bowel syndrome Benign essential HTN Mild concentric left ventricular hypertrophy Grade I diastolic dysfunction Chronic narcotic use Allergic rhinitis History of depression Hypothyroidism Obesity (BMI 30.0-34.9) Chronic renal failure, stage 3 (moderate) Chronic abdominal pain History of malignant carcinoid tumor Bilateral pneumonia History of COVID-19 Anxiety and depression Cancer Former smoker Hypertension Stroke/cerebrovascular accident Multiple metastatic carcinoid tumors Home Medications ?Medication ?Instructions ?Recorded ?Last Taken ?Type amlodipine 10 mg tablet 10 mg PO DAILY Blood pressure 90 09/20/20 12/01/24 Rx days #90 tabs loratadine 10 mg tablet 10 mg PO DAILY ALLERGIES 09/21/21 12/01/24 History aspirin 81 mg tablet 81 mg PO DAILY heart health 09/20/24 12/01/24 History colestipol 1 gram tablet 1 g PO BID cholesterol 09/20/24 12/01/24 History escitalopram oxalate 10 mg tablet 10 mg PO DAILY depression 09/20/24 12/01/24 History levothyroxine 25 mcg tablet 25 mcg PO DAILY thyroid 09/20/24 12/01/24 History (Levo-T) loperamide 2 mg tablet (Diamode) 4 mg PO BID diarrhea 09/20/24 12/01/24 History octreotide acetate 30 mg IM Q28D cancer 09/20/24 11/15/24 History potassium chloride 20 mEq 20 meq PO DAILY supplement 09/20/24 12/01/24 History tablet,extended release atorvastatin 40 mg tablet 40 mg PO QHS cholsterol #30 tabs 09/29/24 12/01/24 Rx hydrocodone-acetaminophen 5-325mg 1 tab PO 0600,1200,1800 7 days #21 05/27/25 07/29/25 Rx 5mg-325mg tabs lisinopril 2.5 mg tablet 2.5 mg PO HS #30 tabs 09/29/24 12/01/24 Rx magnesium chloride 64 mg 64 mg PO DAILY #30 tabs 09/29/24 12/01/24 Rx (magnesium chloride) tablet Allergy/AdvReac Type Severity Reaction Status Date / Time amoxicillin Allergy Rash Verified 12/01/24 22:50 codeine AdvReac Nausea Verified 12/01/24 22:50 Family History Mother Heart disease Myocardial infarction CAD (coronary artery disease) Father COPD (chronic obstructive pulmonary disease) Surgical History H/O resection of small bowel S/P colectomy History of appendectomy History of cholecystectomy Social History household members: spouse Smoking Status: Former smoker how long ago did patient quit smoking: Patient smoked in the only and quit remotely. alcohol intake: never substance use type: does not use ROS ROS ED Constitutional Constitutional ED: Denies chills or fever(s) Eyes Eyes: Denies change in vision or diplopia ENT ENT ED: Denies rhinorrhea or sore throat Cardiovascular Cardiovascular: Denies chest pain or palpitations Respiratory/Chest Respiratory/Chest: Denies cough or dyspnea Gastrointestinal Gastrointestinal: Reports abdominal pain, nausea and vomiting; Denies diarrhea or melena Genitourinary Genitourinary ED: Denies dysuria or hematuria Musculoskeletal Musculoskeletal: Denies back pain or neck pain Integumentary Denies abscess or rash Neurologic Neurologic: Denies headache(s), paresthesias or weakness Psychiatric Psychiatric: Denies anxiety or suicidal thoughts EXAM Physical Exam Const Vital Signs: 12/01/24 22:52 12/01/24 23:50 12/01/24 23:59 Temperature 97 F L Temperature Source Temporal Pulse Rate 113 H 94 Respiratory Rate 18 16 Blood Pressure 87/66 L 128/88 H 122/98 H Blood Pressure Mean 73 101 106 Pulse Ox 99 93 95 Oxygen Delivery Method Room Air Room Air Room Air 12/02/24 01:00 12/02/24 01:59 12/02/24 02:00 Temperature 98.5 F Temperature Source Oral Pulse Rate 93 96 Respiratory Rate 18 Blood Pressure 123/74 H 118/78 118/78 Blood Pressure Mean 90 91 91 Pulse Ox 96 94 Oxygen Delivery Method Room Air Room Air 12/02/24 02:26 12/02/24 03:00 12/02/24 04:00 Temperature 98.5 F 98.5 F Temperature Source Oral Oral Pulse Rate 96 79 80 Respiratory Rate 18 16 18 Blood Pressure 115/84 H 107/73 119/98 H Blood Pressure Mean 94 84 105 Pulse Ox 94 95 95 Oxygen Delivery Method Room Air Room Air Room Air 12/02/24 05:00 Temperature Temperature Source Pulse Rate 92 Respiratory Rate 18 Blood Pressure 126/84 H Blood Pressure Mean 98 Pulse Ox 96 Oxygen Delivery Method Room Air Positive well nourished and well developed General Appearance ED: well developed and NAD HEENT Reports moist mucous membranes normocephalic and atraumatic Eyes PERRL and EOMs intact bilaterally Neck full ROM and supple Resp normal respiratory effort and clear to auscultation bilaterally Cardio regular rate, regular rhythm and no murmurs GI non-distended GI Narrative: Tender in the supraumbilical area which is firm possibly due to hernia mesh, there is no overlying erythema and this area is not especially tender but he is more tender above this in the epigastrium and just below the paramedical area where there is not a palpable umbilical hernia. Mild left lower quadrant tenderness. No guarding or rebound. Auscultation: hypoactive bowel sounds Palpation: soft Back/Spine no CVA tenderness General Back: other FROM Extremity normal to inspection General Extremety ED: Negative for edema, pulses abnormal or tenderness General Extremity: Negative for edema or pulses abnormal Neuro oriented x3, CN's II-XII intact bilaterally and no sensory deficits noted Sensorium / Orientation: awake and alert Motor Exam: strength 5/5 throughout Skin no rashes or lesions noted and no wounds MDM MDM MDM Narrative Medical decision making narrative: Labs had a CT of the abdomen/pelvis were obtained and he was given pain and nausea medication. I reviewed the CT images and the report which I agree with. It is concerning for peritoneal carcinomatosis as well as possible ischemic small bowel as well as metastatic disease in the liver. There is some ascites. His most recent CT scan of the abdomen/pelvis was in September, it does not show any of this except for 1 small abnormal area in the pelvis that the radiologist recommended follow-up for possible malignancy versus enlarged lymph node. I discussed all this with the patient and we added on a lactic acid. It is elevated 2.9, which correlates with her ischemic bowel. He was given more analgesics. I discussed with Dr. Black, who agrees that the patient is not appropriate for surgery here at, and recommends IV fluids and antibiotics but holding off on anticoagulation in case he is a surgical candidate at receiving facility. [facility], and [facility] all of his [facility] and surgical care [facility], so ideally that would be the best place to transfer him right now. Will [facility] a call out to the [facility]. secretary of police had to leave a message, they will continue calling in the meantime we will give him fluids and pain control. Cefepime 2 g ordered. secretary of police has called the [facility] several times and been forced to leave messages. Patient is doing relatively well. Will check out to a.m. physician at shift change for final disposition. Lab Data Attestation: I reviewed the patient's lab results. Labs: Laboratory Results - last 24 hr 12/01/24 12/02/24 12/02/24 23:52 00:00 01:44 WBC 23.2 H RBC 4.96 Hgb 15.8 Hct 48.1 MCV 97.0 H MCH 31.9 MCHC 32.8 RDW Std Deviation 50.6 H RDW Coeff of Gretel 14.1 Plt Count 300 MPV 10.1 Immature Gran % (Auto) 0.700 Neut % (Auto) 90.3 H Lymph % (Auto) 2.3 L [place] % (Auto) 6.4 Eos % (Auto) 0.0 Baso % (Auto) 0.3 Absolute Neuts (auto) 21.0 H Absolute Lymphs (auto) 0.54 L Nucleated RBC % 0 Differential Comment SCANNED Platelet Estimate ADEQUATE RBC Morphology NORM C+C Sodium 141 Potassium 5.0 Chloride 104 Carbon Dioxide 23.3 Anion Gap 14 BUN 30 H Creatinine 1.93 H Estim Creat Clear Calc 31.96 L Est GFR (MDRD) Non-Af 35 L BUN/Creatinine Ratio 15.4 Glucose 159 H Lactic Acid 2.9 H* Calcium 9.1 Total Bilirubin 0.62 AST 46 H ALT 37 Alkaline Phosphatase 122 Total Protein 6.5 Albumin 4.2 Globulin 2.3 Albumin/Globulin Ratio 1.8 Lipase 13 Urine Color Yellow Urine Clarity Sl. Cloudy Urine pH 5.0 Ur Specific [place] 1.030 Urine Protein 100 H Urine Glucose (UA) Normal Urine Ketones 5 H Urine Occult Blood Negative Urine Nitrite Negative Urine Bilirubin 3 H Urine Urobilinogen 4 H Ur Leukocyte Esterase 25 H Urine RBC 0 SEEN Urine WBC 0-5 SEEN Ur Squamous Epith Cells 0-5 SEEN Calcium Oxalate Crystal 2+ Urine Bacteria 2+ Hyaline Casts 5-10 SEEN Urine Mucus 0 SEEN Radiography Diagnostic Testing: Clinical Impression(s) from Imaging Studies Abdomen/Pelvis CT 12/02/24 23:33 IMPRESSION: Status post right hemicolectomy, with ileocolic anastomosis, presumably for colon carcinoma. Abnormal small bowel, possible ischemic, although there is no definite pneumatosis. Suspected portal venous gas raises the suspicion for ischemic bowel. Liver metastatic disease. Peritoneal carcinomatosis and malignant small ascites. Reading Location: [place] [id number] Management Discussion w/another healthcare provider: [employer] ([facility] [place]) Discharge Plan Triage Chief Complaint: Abd Pain ED Provider: Enrique Del Valle Dx/Rx/DC Orders Clinical Impression: Small bowel ischemia, Peritoneal carcinomatosis, Cancer, metastatic to liver Prescriptions: No Action amlodipine 10 mg Tablet 10 mg PO DAILY 90 Days Qty: 90 0RF loratadine 10 mg Tablet 10 mg PO DAILY octreotide acetate 30 mg suspension 30 mg IM Q28D Patient Comments: colestipol 1 gram tablet 1 g PO BID Patient Comments: RX SIG STATES 2QD, PT CAN ONLY TOLERATE 1QD loperamide [Diamode] 2 mg tablet 4 mg PO BID levothyroxine [Levo-T] 25 mcg tablet 25 mcg PO DAILY aspirin 81 mg tablet 81 mg PO DAILY escitalopram oxalate 10 mg tablet 10 mg PO DAILY potassium chloride 20 mEq tablet extended release 20 meq PO DAILY hydrocodone-acetaminophen 5-325 mg Tablet 1 tab PO 0600,1200,1800 7 Days Qty: 21 0RF lisinopril 2.5 mg Tablet 2.5 mg PO HS Qty: 30 0RF atorvastatin 40 mg Tablet 40 mg PO QHS Qty: 30 0RF Rx Instructions: Take this medication at bedtime magnesium chloride 64 mg magnesium tablet 64 mg PO DAILY Qty: 30 0RF [facility] [Primary Care Provider] - Print Language: Macedonian
--- OUTSIDE RECORDS SUMMARY | 2024-12-01 23:39 | XMS RPT_ITS | CCD ---
Author Organization [facility] Care Team Providers Care Reconciliation Coordinator Name Role Phone DALE WOODALL Unavailable Unavailable PHYSICIAN, NONE Unavailable Unavailable [place] Primary Care Provider UnavailDr. Jewel Sandoval Emergency Provider Dr. Linda Falcon Attending Provider Dr. Linda Falcon Admit Provider Dr. Linda Falcon Other Provider Dr. Donnie Frey Attending Provider Dr. Donnie Frey Other Provider Donny MARTÍNEZ, Miryam K Primary Care Provider [phone] Patricia Epstein RN Unavailable TIANA, ARIANNA Attending Unavailable TROY VILLAVICENCIO Referring Unavailable SARAN, MIRYAM K Primary Care Unavailable TIANA, ARIANNA Referring Unavailable TROY VILLAVICENCIO Attending Unavailable SARAN, MIRYAM K Primary Care Unavailable TIANA, ARIANNA Attending Unavailable SARAN, MIRYAM K Primary Care Unavailable Patricia Epstein RN Unavailable [place] Primary Care Provider UnavailDr. René Alicea DO Emergency Provider Dr. Linda Falcon MD Admit Provider Dr. Linda Falcon MD Attending Provider Dr. Linda Falcon MD Other Provider [place] Primary Care Provider UnavailDr. Rebecca Pedraza DO Attending Provider Dr. Wilbert Garcia MD Attending Provider Dr. Rebecca Lima DO Other Provider Dr. Pamella Zuniga DO Admit Provider Semenkaran DO, Dr. Pamella Ríos Attending Provide r Semenkaran DO, Dr. Pamella Ríos Other Provider Clarence DO, Dr. Fernandez Referring Provider [phone] Efrain, Pamella Ríos Attending [facility] [place] [facility] Unavailable Pamella Zuniga Consulting Unavaila ble Sementi, Pamella Ríos Admitting [facility] [facility] Un[place] Rebecca Lima Attending Unavailable Rebecca Lima Referring [facility] [facility] [facility] Unavailable Sementi, Pamella Ríos Admitting Unavaila ble Sementi, Pamella Ríos Attending Unavaila ble White, Linda L Consulting Unavailable White, Linda L Admitting [place]available [facility] [place] [facility] Unavailable Rebecca Lima Attending Unavailable [facility] Unavailable Wilbert Garcia Attending Unavailable Rebecca Lima Referring [place]available [facility] Unavailable Wilbert Garcia Attending Unavailable White, Linda L Admitting Unavailable White, Linda L Consulting [place] [facility] [facility] Un[place] Rebecca Lima Attending Unavailable Rebecca Lima Consulting Unavailable Matthew Horton Consulting Unavailable Adeli, Amir Consulting Unavailable Hinduja, Alanna Consulting Unavailable Harley, Leni Consulting Unavailable Zha, Melany Consulting Unavailable Sebastien, Oskar Consulting Unavailable Megan, Meg Consulting Unavailable Bittar, Octavio Consulting Unavailable Rafael Johnson Consulting Unavailable Rhys Albright Consulting Unavailable BeRochelle morris Consulting Unavailable Joon Gutierrez Consulting Unavailable HeriAmanda villafuerte Consulting Unavailable Ridha, Mohamed Consulting Unavailable Zaghlouleh, Mhd Garcia Consulting UnavailFish Jacobson Consulting Unavailable Meade, Rami Consulting Unavailable Elvi, Berto Consulting Unavailable Carol Lima Consulting Unavailable Nicole, Jjsemaynor Consulting Unavailable White, Linda L Admitting Unavailable White, Linda L Attending Unavailable White, Linda L Consulting Unavailable [facility] [place] [facility] Unavailable Allergies Allergy Classification Reported Allergen(s) Allergy Type Date of Onset Reaction(s) Facility (10 sources) Amoxicillin; Translations: [AMOXICILLIN] Drug Allergy 03-17-2012 [facility] Work Phone: (10 sources) Codeine; Translations: [CODEINE] Drug Allergy 03-17-2012 GI Upset [facility] Work Phone: (3 sources) HYDROmorphone; Translations: [HYDROMORPHONE (BULK)] Drug Allergy 03-17-2012 Vomiting [facility] Work Phone: (1 source) Amoxicillin Drug Allergy 09-20-2024 [facility] (1 source) Codeine Drug Allergy 09-20-2024 [facility] Medications Current Medications Medication Drug Class(es) Dates Sig (Normalized) Sig (Original) acetaminophen 325 mg oral tablet (2 sources) Start: 09-23-2024 take 2 tablets by mouth every six hours as needed for pain Acetaminophen 325 mg tablet Active 650 mg PO EVERY 6 HOURS as needed for pain/fever September 23, 2024 12:00am acetaminophen 325 mg / HYDROcodone bitartrate 5 mg oral tablet (2 sources) Opioid Agonist Start: 09-29-2024 Hydrocodone-Acetam inophen 5-325 mg Tablet Active 1 {tbl} PO 0600,1200,1800 21 7 0 September 29, 2024 Chronic narcotic use Chronic abdominal pain Opioid use, unspecified, uncomplicated Unspecified abdominal pain Other chronic pain amLODIPine 10 mg oral tablet (9 sources) Dihydropyridine Calcium Channel Phuong Start: 09-20-2020 take 1 tablet by mouth once daily Amlodipine 10 mg Tablet Active 10 mg PO DAILY 90 90 0 September 20, 2020 12:00am Blood pressure take 1 tablet by mouth once kunal y amLODIPine (NORVASC) 5 mg tablet Take 5 mg by mouth once daily. 0 Active Comment on above: Take 5 mg by mouth o nce daily. aspirin 81 mg oral tablet (4 sources) Platelet Aggregation Inhibitor, Nonsteroidal Anti-inflammatory Drug Start: 09-21-19 take 1 tablet by mouth once daily Aspirin 81 mg tablet Active 81 mg PO DAILY September 20, 2024 12:00am heart health atorvastatin 40 mg oral tablet (5 sources) HMG-CoA Reductase Inhibitor Start: 09-24-19 End: 09-30-19 take 1 tablet by mouth at bedtime Atorvastatin 40 mg Tablet Active 40 mg PO AT BEDTIME 30 0 September 29, 2024 3:14pm cholsterol Take this medication at bedtime colestipol hydrochloride 1000 mg oral tablet (6 sources) Bile Acid Sequestrant Start: 09-21-19 Colestipol 1 gram tablet Active 1 g PO TWICE A DAY September 20, 2024 12:00am cholesterol take 1 tablet by mouth twice mario ly colestipol (COLESTID) 1 gram tablet Take 1 g by mouth twice daily. 0 Active Comment on above: Take 1 g by mouth tw ice daily. escitalopram 10 mg oral tablet (13 sources) Serotonin Reuptake Inhibitor Start: take 1 tablet by mouth once daily Escitalopram Oxalate 10 mg tablet Active 10 mg PO DAILY September 20, 2024 12:00am depression Start: 09-19-2020 End: 09-20-2024 take 2 tablets by mouth once daily Escitalopram Oxalate 5 mg Tablet Discontinued 10 mg PO DAILY September 19, 2020 12:00am September 20, 2024 4:29pm MOOD Start: 09-19-2020 take 10 mg by mouth once daily Escitalopram Oxalate Active 10 MG PO DAILY September 19, 2020 1:42pm take 1 tablet by krista th once daily escitalopram oxalate (LEXAPRO) 10 mg tablet Take 10 mg by mouth once daily. 0 Active Comment on above: Take 10 mg by mouth once daily. levothyroxine sodium 0.025 mg oral tablet (6 sources) l-Thyroxine Start: 09-20-2024 Levothyroxine (Levo-T) 25 mcg tablet Active 25 ug PO DAILY September 20, 2024 12:00am thyroid take 1 tablet by krista th once daily before breakfast levothyroxine (SYNTHROID) 25 mcg tablet Take 25 mcg by mouth daily before breakfast. 0 Active Comment on above: Take 25 mcg by mouth daily before breakfast. lisinopril 2.5 mg oral tablet (9 sources) Angiotensin Converting Enzyme Inhibitor Start: take 1 tablet by mouth at bedtime Lisinopril 2.5 mg Tablet Active 2.5 mg PO BEDTIME 30 0 September 29, 2024 12:00am Start: 09-19-2020 End: 09-20-2020 take 1 tablet by mouth at bedtime Lisinopril 40 mg Tablet Discontinued 40 mg PO AT BEDTIME September 19, 2020 12:00am September 20, 2020 7:49am blood pressure loperamide hydrochloride 2 mg oral tablet (4 sources) Opioid Agonist Start: 09-20-2024 take 2 tablets by mouth twice daily Loperamide (Diamode) 2 mg tablet Active 4 mg PO TWICE A DAY September 20, 2024 12:00am diarrhea loratadine 10 mg oral tablet (9 sources) Start: 09-21-2021 take 1 tablet by mouth once daily Loratadine 10 mg Tablet Active 10 mg PO DAILY September 21, 2021 12:00am ALLERGIES take 1 capsule by mouth once mario ly loratadine 10 mg cap Take 10 mg by mouth once daily. 0 Active Comment on above: Take 10 mg by mouth once daily. Magnesium Chloride 64 mg magnesium tablet (2 sources) Start: 09-29-2024 take 1 tablet by mouth once daily Magnesium Chloride 64 mg magnesium tablet Active 64 mg PO DAILY 30 September 29, 2024 12:00am Start: 09-29-2024 take 1 tablet by krista th once daily Magnesium Chloride 64 mg magnesium tablet Active 64 mg PO DAILY September 29, 2024 12:00am Octreotide (9 sources) Somatostatin Analog Start: 09-20-2024 octreotide acetate 30 mg suspension Active 30 mg IM Q28D September 20, 2024 12:00am cancer Start: 09-20-2024 octreotide venus torrez 30 mg suspension Active 30 mg IM Q28D September 20, 2024 12:00am Start: 09-21-2021 Octreotide Venus torrez Active 2500 MCG SC .[id number] September 21, 2021 6:16pm Start: 09-21-2021 Octreotide Venus torrez Active 2500 MCG SC .[id number] September 21, 2021 12:00am OCTREOTIDE ACETA TE (SANDOSTATIN INJECTION) by INJECTION(UNSPECIFIED PARENTERAL ROUTES) route. 20mg alternating with 30 mg month at home. 0 Active Comment on above: by INJECTION(UNSPECI FIED PARENTERAL ROUTES) route. 20mg alternating with 30 mg month at home. potassium chloride 20 meq extended release oral tablet (8 sources) Start: 09-21-19 take 1 tablet by mouth once daily Potassium Chloride 20 mEq tablet extended release Active 20 meq PO DAILY September 20, 2024 12:00am supplement Start: 09-25-2022 End: 09-20-2024 take 2 tablets by mouth once daily Potassium Chloride 20 mEq tablet extended release Discontinued 40 meq PO DAILY 1 September 25, 2022 12:00am September 20, 2024 4:30pm Telotristat Ethyl (3 sources) Start: 09-21-2021 take 250 mg by mouth twice daily Telotristat Ethyl Active 250 MG PO TWICE A DAY September 21, 2021 6:16pm Start: 09-21-2021 take 250 mg by mouth twice daily Telotristat Ethyl Active 250 MG PO TWICE A DAY September 21, 2021 12:00am Telotristat Ethyl (Xermelo) 250 mg tablet (4 sources) Start: 09-20-2024 take 1 tablet by mouth three times daily at mealtime Telotristat Ethyl (Xermelo) 250 mg tablet Active 250 mg PO THREE TIMES A DAY September 20, 2024 12:00am diarrhea must administer with a meal/food Start: 09-20-2024 take 1 tablet by krista th three times daily at mealtime Telotristat Ethyl (Xermelo) 250 mg tablet Active 250 mg PO THREE TIMES A DAY September 20, 2024 12:00am must administer with a meal/food Completed/Discontinued Medications Medication Drug Class(es) Dates Sig (Normalized) Sig (Original) acetaminophen 325 mg / oxyCODONE hydrochloride 5 mg oral tablet (7 sources) Opioid Agonist Start: 09-23-2024 End: 09-23-2024 Oxycodone-Acetamino phen 5-325 mg tablet Discontinued 1 {tbl} PO THREE TIMES A DAY 3 1 0 September 23, 2024 4:59pm September 23, 2024 6:23pm Start: 09-20-2024 End: 09-23-2024 Oxycodone-Acetaminophen 5-32 5 mg tablet Discontinued 1 {tbl} PO EVERY 6 HOURS as needed for pain 0 September 20, 2024 12:00am September 23, 2024 4:59pm ARIPiprazole 5 mg oral tablet (9 sources) Atypical Antipsychotic Start: 09-21-2021 End: 09-20-2024 take 2.5 mg by mouth once daily Aripiprazole 5 mg Tablet Discontinued 2.5 mg PO DAILY September 21, 2021 12:00am September 20, 2024 4:29pm MOOD Start: 09-21-2021 take 2.5 mg by mouth once kunal y Aripiprazole Active 2.5 MG PO DAILY September 21, 2021 6:16pm take 1 tablet by krista th once daily ARIPiprazole (ABILIFY) 5 mg tablet Take 5 mg by mouth once daily. 0 Active Comment on above: Take 5 mg by mouth o nce daily. chlorthalidone 25 mg oral tablet (9 sources) Thiazide-like Diuretic Start: 09-20-19 End: 09-21-19 25 take 1 tablet by mouth once daily Chlorthalidone 25 mg Tablet Discontinued 25 mg PO DAILY September 19, 2020 12:00am September 20, 2024 4:29pm DIURETIC On Hold: Hold for 5 days for MAGGIE on CKD Comment on above: Take 25 mg by mouth once daily. cholecalciferol 0.075 mg oral tablet (9 sources) Vitamin D Start: 09-22-19 End: 09-21-19 take 1 tablet by mouth once daily Cholecalciferol (Vitamin D3) 75 mcg (3,000 unit) Tablet Discontinued 75 ug PO DAILY September 21, 2021 12:00am September 20, 2024 4:30pm SUPPLEMENT take 1 tablet by [facility] three times daily cholecalciferol (VITAMIN D3) 1,000 unit tab tablet Take 1,000 Units by mouth three times daily. 0 Active Comment on above: Take 1,000 Units by mouth three times daily. container,empty (NASAL SPRAY BOTTLE MISC) (2 sources) container,empty (NASAL SPRAY BOTTLE MISC) 12 hr dextromethorphan hydrobromide 30 mg / guaiFENesin 600 mg extended release oral tablet (6 sources) Uncompetitive L-rvugsi-F-aspartate Receptor Antagonist, Sigma-1 Agonist Start: 022 End: Dextromethorphan-Gu aifenesin (Mucinex Dm) 30-600 mg Tablet Extended Release 12 Hr Discontinued 1 {tbl} PO TWICE A DAY 14 0 September 23, 2021 12:00am September 20, 2024 4:30pm doxazosin 2 mg oral tablet (9 sources) alpha-Adrenergic Phuong Start: 021 End: 025 take 2 tablets by mouth at bedtime Doxazosin 2 mg Tablet Discontinued 4 mg PO AT BEDTIME September 19, 2020 12:00am September 20, 2024 4:30pm blood pressure Start: 09-19-2020 take 4 mg by mouth at bedtime Doxazosin Active 4 MG PO AT BEDTIME September 19, 2020 11:30am take 1 tablet by krista th once daily at bedtime doxazosin (CARDURA) 4 mg tablet Take 4 mg by mouth daily at bedtime. 0 Active Comment on above: Take 4 mg by mouth d aily at bedtime. 0.4 ml enoxaparin sodium 100 mg/ml prefilled syringe (3 sources) Low Molecular Weight Heparin Start: 09-23-2024 End: 09-29-2024 Enoxaparin 40 mg/0.4 mL Syringe Discontinued 40 mg SC DAILY 0 September 23, 2024 12:00am September 29, 2024 3:10pm prophylaxis FE/VIT B COMP/B12/LIVER/PROC ([id number] INTRAMUSC.) (2 sources) FE/VIT B COMP/B12/LIVER/PROC ([id number] INTRAMUSC.) Inject intramuscularly. 1000 mcg monthly injection at home. 0 Active Comment on above: Inject intramuscular ly. 1000 mcg monthly injection at home. fluticasone propionate 0.05 mg/actuat metered dose nasal spray (7 sources) Corticosteroid Start: 09-19-2020 End: 09-20-2024 Fluticasone Propionate 50 mcg/actuation [place],Suspension Discontinued 1 NMA INTRANASAL DAILY September 19, 2020 12:00am September 20, 2024 4:30pm ALLERGY Start: 09-19-2020 Fluticasone Pr opionate Active 1 SPRAY INTRANASAL DAILY September 19, 2020 1:44pm Food Supplemt, Lactose-Reduc ed (Ensure Plus High Protein) 0.08 gram-1.5 kcal/mL Liquid (3 sources) Start: 09-23-2024 End: 09-29-2024 Food Supplemt, Lactose-Reduc ed (Ensure Plus High Protein) 0.08 gram-1.5 kcal/mL Liquid Discontinued 120 mL PO 3 TIMES DAILY WITH MEALS 0 September 23, 2024 12:00am September 29, 2024 3:11pm nutrition Start: 09-23-2024 End: 09-29-2024 Food Supplemt, Lactose-Reduc ed (Ensure Plus High Protein) 0.08 gram-1.5 kcal/mL Liquid Discontinued 120 mL PO 3 TIMES DAILY WITH MEALS 0 September 23, 2024 12:00am September 29, 2024 3:11pm Start: 09-23-2024 Food Supplemt, Lactose-Reduced (Ensure Plus High Protein) 0.08 gram-1.5 kcal/mL Liquid Active 120 mL PO 3 TIMES DAILY WITH MEALS 0 September 23, 2024 12:00am guaiFENesin 200 mg oral tablet (7 sources) Start: 09-21-2021 End: 09-23-2021 take 200 mg by mouth every six hours as needed for congestion Guaifenesin (Guaiatussin) 100 mg/5 mL Syrup Discontinued 200 mg PO EVERY 6 HOURS as needed for Congestion September 21, 2021 12:00am September 23, 2021 10:42am levoFLOXacin 500 mg oral tablet (6 sources) Quinolone Antimicrobial Start: 09-23-2021 End: 09-20-2024 take 1 tablet by mouth once daily Levofloxacin 500 mg tablet Discontinued 500 mg PO DAILY 5 0 September 23, 2021 12:00am September 20, 2024 4:30pm Octreotide Acetate 2,500 mcg/mL Pen Injector (4 sources) Start: 09-21-2021 End: 09-20-2024 Octreotide Acetate 2,500 mcg/mL Pen Injector Discontinued 2500 ug SC .[id number] September 21, 2021 12:00am September 20, 2024 4:24pm Check with primary doctor Start: 09-21-2021 End: 09-20-2024 Octreotide Acetate 2,500 mcg /mL Pen Injector Discontinued 2500 ug SC .[id number] September 21, 2021 12:00am September 20, 2024 4:24pm 12 hr oxyCODONE hydrochloride 20 mg extended release oral tablet (18 sources) Opioid Agonist Start: 09-19-2020 End: 09-20-2024 take 1 tablet by mouth twice daily Oxycodone 20 mg Tablet Extended Release 12 Hr Discontinued 20 mg PO TWICE A DAY September 19, 2020 12:00September 20, 2024 4:20pm pain Start: 09-19-2020 End: 09-20-2024 take 2 tablets by mouth once daily Oxycodone 5 mg Tablet Discontinued 10 mg PO DAILY@1500 September 19, 2020 12:00am September 20, 2024 4:20pm Check with primary doctor Start: 09-19-2020 take 10 mg by mouth once daily Oxycodone Active 10 MG PO DAILY@1500 September 19, 2020 11:35am Start: 09-19-2020 take 20 mg by mouth twice kunal y Oxycodone Active 20 MG PO TWICE A DAY September 19, 2020 11:30am take 1 tablet by krista th every four hours as needed oxyCODONE immediate release 5 mg immediate release tablet Take 5 mg by mouth every 4 hours as needed. 0 Active take 1 tablet by krista th every twelve hours, then take 1 tablet by mouth every twelve hours oxyCODONE ER (OXYCONTIN) 20 mg 12 hr tablet Take 20 mg by mouth every 12 hours. 0 Active Comment on above: Take 5 mg by mouth e very 4 hours as needed. Take 20 mg by mouth every 12 hours. telotristat ethyl 250 mg oral tablet (2 sources) take 1 tablet by mouth three times daily telotristat ethyl 250 mg tab Take 250 mg by mouth three times daily. 0 Active Comment on above: Take 250 mg by mouth three times daily. Telotristat Ethyl 250 mg Tablet (4 sources) Start: 09-21-2021 End: 09-20-2024 take 1 tablet by mouth twice daily Telotristat Ethyl 250 mg Tablet Discontinued 250 mg PO TWICE A DAY September 21, 2021 12:00am September 20, 2024 4:30pm DIARREAH Start: 09-21-2021 End: 09-20-2024 take 1 tablet by mouth twice daily Telotristat Ethyl 250 mg Tablet Discontinued 250 mg PO TWICE A DAY September 21, 2021 12:00am September 20, 2024 4:30pm vitamin b12 1 mg/ml injectable solution (7 sources) Vitamin B12 Start: 09-21-2021 End: 09-20-2024 inject 1000 ug by intramuscular injection every month Cyanocobalamin (Vitamin B-12) 1,000 mcg/mL Solution Discontinued 1000 ug IM EVERY MONTH September 21, 2021 12:00am September 20, 2024 4:30pm Check with primary doctor Start: 09-21-2021 inject 1000 ug by in tramuscular injection every month Cyanocobalamin (Vitamin B-12) Active 1000 MCG IM EVERY MONTH September 21, 2021 6:16pm Problems Active Problems Problem Classification Problem Date Documented Da te Episodic/Chronic Abdominal pain (5 sources) Chronic abdominal pain; Translations: [Unspecified abdominal pain] Onset: 09-30-2024 09-25-2024 Episodic Comment on above: Right lower quadrant . Takes [place] 5/325 3 times daily as an outpatient. 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 Cancer; other and unspecified primary (1 source) Personal history of malignant neoplasm, unspecified; Translations: [Personal history of malignant neoplasm, unspecified] Onset: 09-30-2024 Episodic Chronic kidney disease (4 sources) Chronic renal failure; Translations: [Chronic renal failure, stage 3 (moderate)] 09-25-2024 Chronic Chronic kidney disease (1 source) Chronic kidney disease; Translations: [Chronic kidney disease, stage 3 unspecified] Onset: 09-30-2024 Complications of surgical procedures or medical care (9 sources) Short bowel syndrome; Translations: [Postsurgical malabsorption, not elsewhere classified] 02-03-2013 Chronic Conditions associated with dizziness or vertigo (5 sources) Dizziness; Translations: [Dizziness and giddiness] Onset: 09-23-2024 09-20-2024 Episodic Delirium, dementia, and amnestic and other cognitive disorders (10 sources) Sundowning; Translations: [Delirium due to known physiological condition] Onset: 09-30-2024 09-25-2024 Chronic Disorders of lipid metabolism (5 sources) Dyslipidemia; Translations: [Hyperlipidemia, unspecified] Onset: 09-30-2024 09-30-2024 Chronic Essential hypertension (10 sources) Benign essential hypertension; Translations: [Essential (primary) hypertension] Onset: 09-30-2024 02-03-2013 Chronic Fluid and electrolyte disorders (10 sources) Acute hypokalemia; Translations: [Hypokalemia] Episodic Genitourinary symptoms and ill-defined conditions (14 sources) Bacteriuria; Translations: [Bacteriuria] 2019 Episodic Malaise and fatigue (5 sources) Asthenia; Translations: [Other malaise] Onset: 09-30-2024 09-25-2024 Episodic Malignant neoplasm without specification of site (7 sources) Metastatic carcinoid tumor; 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, unspecified site] 09-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 Chronic Mood disorders (9 sources) Depressive disorder; Translations: [Depression] Onset: 07-24-2021 07-24-2021 Chronic Nausea and vomiting (12 sources) Intractable nausea and vomiting; Translations: [Nausea with vomiting, unspecified] Onset: 09-23-2024 09-20-2024 Episodic Other and ill-defined heart disease (4 sources) Diastolic dysfunction; Translations: [Other ill-defined heart diseases] 09-25-2024 Chronic Other and ill-defined heart disease (5 sources) Cardiomegaly; Translations: [Mild concentric left ventricular hypertrophy] Onset: 09-30-2024 09-25-2024 Chronic Other and ill-defined heart disease (1 source) Other ill-defined heart diseases; Translations: [Other ill-defined heart diseases] Onset: 09-30-2024 Chronic Other and unspecified benign neoplasm (3 sources) Carcinoid tumor of ileum; 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] Onset: 03-17-2012 03-17-2012 Episodic Other circulatory disease (7 sources) Orthostatic hypotension; Translations: [Orthostatic hypotension] 05-22-2020 Episodic Other diseases of kidney and ureters (7 sources) Renal impairment; Translations: [Disorder of kidney and ureter, unspecified] 2019 Episodic Other diseases of veins and lymphatics (5 sources) Lymphedema; Translations: [Lymphedema, not elsewhere classified] 11-21-2021 Chronic Other endocrine disorders (7 sources) Carcinoid syndrome; Translations: [Carcinoid syndrome] 09-21-2021 Chronic Other gastrointestinal disorders (1 source) Loose stool; Translations: [Other fecal abnormalities] 11-15-2022 Episodic Other gastrointestinal disorders (3 sources) Diarrhea; Translations: [Diarrhea, unspecified] Onset: 11-08-2022 11-08-2022 Episodic Other gastrointestinal disorders (1 source) Diarrhea, unspecified; Translations: [Diarrhea, unspecified type] Onset: 11-08-2022 Episodic Other injuries and conditions due to external causes (8 sources) Systemic inflammatory response syndrome; Translations: [Systemic inflammatory response syndrome (SIRS) of non-infectious origin without acute organ dysfunction] 10-01-2021 Episodic Other injuries and conditions due to external causes (3 sources) Systemic inflammatory response syndrome (SIRS) of non-infectious origin without acute organ dysfunction; Translations: [Systemic inflammatory response syndrome, unspecified] Episodic Other lower respiratory disease (7 sources) Hypoxia; Translations: [Hypoxemia] 10-01-2021 Episodic Other lower respiratory disease (3 sources) Hypoxemia; Translations: [Hypoxemia] Episodic Other nervous system disorders (7 sources) Metabolic encephalopathy; Translations: [Metabolic encephalopathy] 09-18-2020 Chronic Other nervous system disorders (1 source) Other chronic pain; Translations: [Other chronic pain] Onset: 09-30-2024 Chronic Other nervous system disorders (4 sources) Abnormal gait; Translations: [Unsteadiness on feet] 09-25-2024 Episodic Other nervous system disorders (1 source) Unsteadiness on feet; Translations: [Unsteadiness on feet] Onset: 09-30-2024 Episodic Other nutritional; endocrine; and metabolic disorders (4 sources) Obese class I; Translations: [Class 1 obesity] 09-30-2024 Chronic Other upper respiratory disease (4 sources) Allergic rhinitis; Translations: [Allergic rhinitis, unspecified] 09-25-2024 Chronic Other upper respiratory disease (1 source) Other allergic rhinitis; Translations: [Other allergic rhinitis] Onset: 09-30-2024 Chronic Pneumonia (except that caused by tuberculosis or sexually transmitted disease) (4 sources) Bilateral pneumonia; Translations: [Pneumonia, unspecified organism] Episodic Residual codes; unclassified (7 sources) Altered mental status; Translations: [Altered mental status, unspecified] 09-18-2020 Episodic Residual codes; unclassified (7 sources) History of colectomy; Translations: [Acquired absence of other specified parts of digestive tract] 09-21-2021 Episodic Comment on above: R hemicolectomy, SB resection with abdominal mesh. Residual codes; unclassified (4 sources) History of partial resection of colon; Translations: [Acquired absence of other specified parts of digestive tract] Onset: 11-08-2022 11-15-2022 Episodic Residual codes; unclassified (3 sources) FH: Bowel cancer; Translations: [Family history of malignant neoplasm of digestive organs] Onset: 11-08-2022 11-08-2022 Episodic Residual codes; unclassified (2 sources) Acquired absence of other specified parts of digestive tract; Translations: [Status post partial resection of colon] Onset: 09-24-2022 Episodic Residual codes; unclassified (1 source) Family history of malignant neoplasm of digestive organs; Translations: [Family history of bowel cancer] Onset: 11-08-2022 Episodic Respiratory failure; insufficiency; arrest (adult) (15 sources) Acute respiratory failure; Translations: [Acute respiratory failure with hypoxia] Episodic Screening and history of mental health and substance abuse codes (5 sources) H/O: depression; Translations: [Personal history of other mental and behavioral disorders] Onset: 09-30-2024 09-25-2024 Episodic Secondary malignancies (2 sources) Secondary malignant neoplasm of liver; 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] Onset: 03-17-2012 03-17-2012 Chronic Secondary malignancies (2 sources) Carcinomatosis of peritoneal cavity; 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] Onset: 03-17-2012 03-17-2012 Chronic Substance-related disorders (5 sources) Narcotic drug user; Translations: [Opioid use, unspecified, uncomplicated] Onset: 09-30-2024 09-25-2024 Episodic Thyroid disorders (5 sources) Hypothyroidism; Translations: [Hypothyroidism, unspecified] Onset: 09-30-2024 09-25-2024 Chronic Unclassified (3 sources) 1 week after d/c Unclassified (1 source) Short bowel syndrome, unspecified; Translations: [Short bowel syndrome, unspecified] Onset: 09-30-2024 Unclassified (1 source) Obesity, class 1; Translations: [Obesity, class 1] Onset: 09-30-2024 Viral infection (7 sources) COVID-19; Translations: [Acute COVID-19] 09-18-2020 Episodic Past or Other Problems Problem Classification Problem Date Documented Da te Episodic/Chronic Other and unspecified benign neoplasm (1 source) Benign carcinoid tumor of the ileum; Translations: [Carcinoid tumor of ileum, unspecified whether malignant] Onset: 03-17-2012 Episodic Results Test Name Value Interpretation Reference Range Facility Discharge Instructionon 09-04 Discharge Instruction [facility] Medical Records Department [address] [place] [address] Instructions for Home/Discharge Instructions 09/29/24 1445 MR#: [id number] Acct: [id number] Name: ITZEL GOMEZ Rep #: [id number] : [id number] From: Pamella Zuniga DO PCP: [facility] Status:ADM IN Discharge Instructions Diet Discharge Diet: Low fat / Low cholesterol and - (Low-salt) DC O2, CPAP, BIPAP needs Home O2 Discharge instructions: No Dressing / Incision Discharge Activity: May Not Drive and Use Walker (Or a cane. Therapy has been having a hand on him with wmbulation and a gait belt. Currently contact guard assist. ) Weight Bearing Status: Full weight bearing Dressing / Incision Call your doctor if you observe: Fever of 101 or Higher, Inability to urinate, Shortness of breath, Dizziness, Fainting spells, Swelling in the ankles, Chest pain, Increased palpitations (irregular heartbeat), Calf discomfort, Uncontrolled pain and - (STROKE symptoms: facial droop, slurred speech, inability to get words out, weakness on 1 side of the body and not the other, numbness on 1 side of the body and not the other, inability to maintain your balance sitting or standing, vertigo. ) Follow Up Care When: You will need to follow up with your PCP at the [facility] and should also have follow up with neurology. You should have a cardiac event monitor following discharge to rule out paroxysmal AFIB.....the [facility] can arrange this for you. Test Results: Test results from this visit will be discussed in further detail at your follow-up appointment, if applicable. Pending Tests Upon Discharge: none Discharge Plan Admission Admit Date/Time: 09/23/24 18:05 Primary Reason for Your Visit: POST STROKE DEBILITY Attending Provider: Pamella Zuniga Primary Care Provider: [facility] Instructions Patient Instructions: AFib Additional Instructions / Restrictions: 1. We had to add another blood pressure pill to your drug regimen for uncontrolled high BP. The new medication is called Lisinopril and you will take this once a day at bedtime. 2. You have been getting shots in the abdomen of a drug called Lovenox to help prevent blood clots in your leg. You will not be taking this at home. 3. Because of the stroke you will be taking a drug called Lipitor (also called atorvastatin) to lower your cholesterol. Recommendations for people with strokes is to keep the LDL (bad cholesterol) 70 or less. Your LDL was 91 when you presented to the hospital with stroke symptoms. Your doctor will want to recheck your cholesterol and the liver tests in 4-6 weeks. 4. The neurologist who consulted on you while you were in the hospital recommended you get a heart monitor at discharge from the hospital. Some strokes are caused by a problem with the rhythm of the heart called atrial fibrillation (also called AFIB). Some people have palpitations/racing heart/lightheadedness when they are in AFIB and others have no symptoms at all. The heart monitor will continuously monitor your heart rhythm to see if you are having any AFIB. AFIB is a risk factor for stroke and if you have AFIB you will need to be started on an anticoagulant to help prevent additional strokes going forward. Discharge Orders/Prescriptions Prescriptions: New hydrocodone-acetaminop hen 5-325 mg Tablet 1 tab PO 0600,1200,1800 7 Days Qty: 21 0RF lisinopril 2.5 mg Tablet 2.5 mg PO HS Qty: 30 0RF magnesium chloride 64 mg magnesium tablet 64 mg PO DAILY Qty: 30 0RF Continued amlodipine 10 mg Tablet 10 mg PO DAILY 90 Days Qty: 90 0RF loratadine 10 mg Tablet 10 mg PO DAILY octreotide acetate 30 mg suspension 30 mg IM Q28D Patient Comments: colestipol 1 gram tablet 1 g PO BID Patient Comments: RX SIG STATES 2QD, PT CAN ONLY TOLERATE 1QD Xermelo 250 mg tablet 250 mg PO TID Rx Instructions: must administer with a meal/food loperamide [Diamode] 2 mg tablet 4 mg PO BID levothyroxine [Levo-T] 25 mcg tablet 25 mcg PO DAILY aspirin 81 mg tablet 81 mg PO DAILY escitalopram oxalate 10 mg tablet 10 mg PO DAILY potassium chloride 20 mEq tablet extended release 20 meq PO DAILY acetaminophen 325 mg tablet 650 mg PO Q6H PRN (Reason: pain/fever) atorvastatin 40 mg Tablet 40 mg PO QHS Qty: 30 0RF Rx Instructions: Take this medication at bedtime Discontinued enoxaparin 40 mg/0.4 mL Syringe 40 mg subcut DAILY Qty: 0 0RF Ensure Plus High Protein 0.08 gram-1.5 kcal/mL Liquid 120 ml PO TIDCM Qty: 0 0RF Referrals / Follow Up: Brenda Torres NP-C [Med Staff - Adv Practice Prof] - 10/08/24 9:00 am Miryam Hines NP-C [Non-Staff] - 10/14/24 2:00 pm Disposition Disposition (needs filled in before D/C Order can be placed): Home Health Service 09/30/24 0802 Pamella Zuniga DO CC: [facility] Signed Normal [facility] Anion gap in Serum or Plasma Ordered By: Pamella Zuniga on 09-28-2024 Anion gap [Moles/Vol] 11 mmol/L 5-15 [facility] BUN/creatinine ratioOrdered By: Pamella Zuniga on 09-28-2024 Urea nitrogen/Creatinine [Mass ratio] 14.3 mg/mg 10-20 [facility] Carbon dioxide, total [Moles /volume] in Central venous bloodOrdered By: Pamella Zuniga on 09-28-2024 CO2 [Moles/Vol] 23.4 mmol/L 21.0-32.0 [facility] Chloride assayOrdered By: Bessie Zuniga on 09-28-2024 Chloride [Moles/Vol] 106 mmol/L 98-108 [facility] Glomerular filtration rate ( GFR) estimation/1.73 sq m using serum, plasma, or whole bOrdered By: Pamella Zuniga on 09-28-2024 GFR/1.73 sq M.predicted among non-blacks MDRD (S/P/Bld) [Vol rate/Area] 42 mL/min/{1.73_m2} Low >60 [facility] Comment on above: mL/min/1.73m2 CKD-EP I Creatinine Equation (2020) Potassium measurement (mass/ volume)Ordered By: Pamella Zuniga on 09-28-2024 Potassium (Unsp spec) [Mass/Vol] 4.1 mmol/L 3.3-5.1 [facility] Renal Profileon 09-28-2024 Albumin [Mass/Vol] 3.9 g/dL Normal 3.4-4.8 [facility] Comment on above: Performed By: #### L 500.3600 #### [facility] [address] [place], [address] BUN/CRE 14.3 RATIO Normal 10-20 [facility] Comment on above: Performed By: #### L 500.3600 #### [facility] [address] [place], [address] Calcium [Mass/Vol] 8.5 mg/dL Normal 7.6-11.0 [facility] Comment on above: Performed By: #### L 500.3600 #### [facility] [address] [place], [address] Chloride [Moles/Vol] 106 mmol/L Normal 98-108 [facility] Comment on above: Performed By: #### L 500.3600 #### [facility] [address] [place], [address] CO2 [Moles/Vol] 23.4 mmol/L Normal 21.0-32.0 [facility] Comment on above: Performed By: #### L 500.3600 #### [facility] [address] [place], [address] Creatinine [Mass/Vol] 1.64 mg/dL High 0.70-1.20 [facility] Comment on above: Performed By: #### L 500.3600 #### [facility] [address] [place], [address] ECRCL 32.61 ml/min Low 50-250 [facility] Comment on above: Performed By: #### L 500.3600 #### [facility] [address] [place], [address] GAP 11 Normal 5-15 [facility] Comment on above: Performed By: #### L 500.3600 #### [facility] [address] [place], [address] GFR/1.73 sq M.predicted among non-blacks MDRD (S/P/Bld) [Vol rate/Area] 42 mL/min/{1.73_m2} Low >60 [facility] Comment on above: Result Comment: mL/m in/1.73m2 CKD-EPI Creatinine Equation (2020) Performed By: #### L 500.3600 #### [facility] [address] [place], [address] Glucose [Mass/Vol] 95 mg/dL Normal 70-99 [facility] Comment on above: Performed By: #### L 500.3600 #### [facility] [address] [place], [address] Phosphate [Mass/Vol] 3.1 mg/dL Normal 2.7-4.5 [facility] Comment on above: Performed By: #### L 500.3600 #### [facility] [address] [place], [address] Potassium [Moles/Vol] 4.1 mmol/L Normal 3.3-5.1 [facility] Comment on above: Performed By: #### L 500.3600 #### [facility] [address] [place], [address] Sodium [Moles/Vol] 140 mmol/L Normal 133-145 [facility] Comment on above: Performed By: #### L 500.3600 #### [facility] [address] [place], [address] Urea nitrogen [Mass/Vol] 23 mg/dL High 4-19 [facility] Comment on above: Performed By: #### L 500.3600 #### [facility] [address] [place], [address] Serum creatinine measurement (mass/volume)Ordered By: Pamella Efrain on 09-28-2024 Creatinine [Mass/Vol] 1.64 mg/dL High 0.70-1.20 [facility] Serum glucose measurement (m ass/volume)Ordered By: Pamella Thackerkaran on 09-28-2024 Glucose [Mass/Vol] 95 mg/dL 70-99 [facility] Serum or plasma albumin sammy urement (mass/volume)Ordered By: Pamella Efrain on 09-28-2024 Albumin [Mass/Vol] 3.9 g/dL 3.4-4.8 [facility] Serum or plasma calcium sammy urement (mass/volume)Ordered By: Pamella Efrain on 09-28-2024 Calcium [Mass/Vol] 8.5 mg/dL 7.6-11.0 [facility] Serum or plasma urea nitroge n measurement (mass/volume)Ordered By: Pamella Efrain on 09-28-2024 Urea nitrogen [Mass/Vol] 23 mg/dL High 4-19 [facility] Sodium levelOrdered By: Pamella Efrain on 09-28-2024 Sodium [Moles/Vol] 140 mmol/L 133-145 [facility] Absolute lymphocyte countOrd ered By: Pamella Thackerkaran on 09-24-2024 Lymphocytes Auto (Unsp spec) [#/Vol] 0.81 10*3/uL Low 0.83-4.51 [facility] Absolute neutrophil countOrd ered By: Pamella Efrain on 09-24-2024 Neutrophils (Bld) [#/Vol] 6.7 10*3/uL 2.0-7.7 [facility] Automated lymphocyte count a s percentage of total leukocytesOrdered By: Pamella Efrain on 09-24-2024 Lymphocytes/100 WBC Auto (Unsp spec) 9.7 % Low 19-41 [facility] Basophil percentageOrdered B y: Pamella Efrain on 09-24-2024 Basophils/100 WBC (Bld) 0.6 % 0-1 [facility] Bilirubin, totalOrdered By: Pamella Efrain on 09-24-2024 Bilirubin [Mass/Vol] 0.49 mg/dL 0.00-1.30 [facility] CBC W/Diff, Automatedon 05-2 2-2025 Absolute Lymph 0.81 X10 3/uL Low 0.83-4.51 [facility] Comment on above: Performed By: #### L 500.4050, L501.2450, L100.0100 #### [facility] [address] [place], [address] Absolute Neut 6.7 X10 3/uL Normal 2.0-7.7 [facility] Comment on above: Performed By: #### L 500.4050, L501.2450, L100.0100 #### [facility] [address] [place], [address] Basophils/100 WBC (Bld) 0.6 % Normal 0-1 [facility] Comment on above: Performed By: #### L 500.4050, L501.2450, L100.0100 #### [facility] [address] [place], [address] Eosinophils/100 WBC (Bld) 2.5 % Normal 0-5 [facility] Comment on above: Performed By: #### L 500.4050, L501.2450, L100.0100 #### [facility] [address] [place], [address] Erythrocyte distribution width (RBC) [Ratio] 12.9 % Normal 11.6-14.6 [facility] Comment on above: Performed By: #### L 500.4050, L501.2450, L100.0100 #### [facility] [address] [place], [address] Hematocrit (Bld) [Volume fraction] 42.0 % Normal 40-54 [facility] Comment on above: Performed By: #### L 500.4050, L501.2450, L100.0100 #### [facility] [address] [place], [address] Hemoglobin (Bld) [Mass/Vol] 14.3 g/dL Normal 13.0-16.5 [facility] Comment on above: Performed By: #### L 500.4050, L501.2450, L100.0100 #### [facility] [address] [place], [address] IG% 0.600 Normal 0.0-0.9 [facility] Comment on above: Result Comment: IG% - Immature Granulocytes (promyelocytes, myelocytes and metamyelocytes) > 1% indicates that a LEFT SHIFT is Present. Performed By: #### L 500.4050, L501.2450, L100.0100 #### [facility] [address] [place], [address] Lymphocytes/100 WBC (Bld) 9.7 % Low 19-41 [facility] Comment on above: Performed By: #### L 500.4050, L501.2450, L100.0100 #### [facility] [address] [place], [address] MCH (RBC) [Entitic mass] 31.1 pg Normal 27.0-32.0 [facility] Comment on above: Performed By: #### L 500.4050, L501.2450, L100.0100 #### [facility] [address] [place], [address] MCHC (RBC) [Mass/Vol] 34.0 g/dL Normal 32-36 [facility] Comment on above: Performed By: #### L 500.4050, L501.2450, L100.0100 #### [facility] [address] [place], [address] MCV (RBC) [Entitic vol] 91.3 fL Normal 80-94 [facility] Comment on above: Performed By: #### L 500.4050, L501.2450, L100.0100 #### [facility] [address] [place], [address] Monocytes/100 WBC (Bld) 6.5 % Normal 0-10 [facility] Comment on above: Performed By: #### L 500.4050, L501.2450, L100.0100 #### [facility] [address] [place], [address] Neutrophils/100 WBC (Bld) 80.1 % High 47-70 [facility] Comment on above: Performed By: #### L 500.4050, L501.2450, L100.0100 #### [facility] [address] [place], [address] Nucleated RBC (Bld) [#/Vol] 0 10*3/uL Normal 0-5 [facility] Comment on above: Performed By: #### L 500.4050, L501.2450, L100.0100 #### [facility] [address] [place], [address] Platelet mean volume (Bld) [Entitic vol] 9.3 fL Normal 6.2-12.0 [facility] Comment on above: Performed By: #### L 500.4050, L501.2450, L100.0100 #### [facility] [address] [place], [address] Platelets (Bld) [#/Vol] 192 10*3/uL Normal 150-450 [facility] Comment on above: Performed By: #### L 500.4050, L501.2450, L100.0100 #### [facility] [address] [place], [address] RBC (Bld) [#/Vol] 4.60 10*6/uL Normal 4.6-6.2 [facility] Comment on above: Performed By: #### L 500.4050, L501.2450, L100.0100 #### [facility] [address] [place], [address] RDW SD 42.7 fl Normal 35.1-43.9 [facility] Comment on above: Performed By: #### L 500.4050, L501.2450, L100.0100 #### [facility] [address] [place], [address] WBC (Bld) [#/Vol] 8.4 10*3/uL Normal 4.4-11.0 [facility] Comment on above: Performed By: #### L 500.4050, L501.2450, L100.0100 #### [facility] [address] [place], [address] Comprehensive Metabolic Prof [facility] 09-24-2024 Albumin [Mass/Vol] 4.0 g/dL Normal 3.4-4.8 [facility] Comment on above: Performed By: #### L 500.4050, L501.2450, L100.0100 #### [facility] [address] [place], [address] Albumin/Globulin [Mass ratio] 1.5 {ratio} Normal 0.9-2.4 [facility] Comment on above: Performed By: #### L 500.4050, L501.2450, L100.0100 #### [facility] [address] [place], [address] ALK PHOS 88 U/L Normal 40-129 [facility] Comment on above: Performed By: #### L 500.4050, L501.2450, L100.0100 #### [facility] [address] [place], [address] ALT [Catalytic activity/Vol] 21 U/L Normal <=46 [facility] Comment on above: Performed By: #### L 500.4050, L501.2450, L100.0100 #### [facility] [address] [place], [address] AST [Catalytic activity/Vol] 33 U/L Normal <=37 [facility] Comment on above: Performed By: #### L 500.4050, L501.2450, L100.0100 #### [facility] [address] [place], [address] Bilirubin [Mass/Vol] 0.49 mg/dL Normal 0.00-1.30 [facility] Comment on above: Performed By: #### L 500.4050, L501.2450, L100.0100 #### [facility] [address] [place], [address] BUN/CRE 9.7 RATIO Low 10-20 [facility] Comment on above: Performed By: #### L 500.4050, L501.2450, L100.0100 #### [facility] [address] [place], [address] Calcium [Mass/Vol] 8.1 mg/dL Normal 7.6-11.0 [facility] Comment on above: Performed By: #### L 500.4050, L501.2450, L100.0100 #### [facility] [address] [place], [address] Chloride [Moles/Vol] 104 mmol/L Normal 98-108 [facility] Comment on above: Performed By: #### L 500.4050, L501.2450, L100.0100 #### [facility] [address] [place], [address] CO2 [Moles/Vol] 24.3 mmol/L Normal 21.0-32.0 [facility] Comment on above: Performed By: #### L 500.4050, L501.2450, L100.0100 #### [facility] [address] [place], [address] Creatinine [Mass/Vol] 1.59 mg/dL High 0.70-1.20 [facility] Comment on above: Performed By: #### L 500.4050, L501.2450, L100.0100 #### [facility] [address] [place], [address] ECRCL 33.53 ml/min Low 50-250 [facility] Comment on above: Performed By: #### L 500.4050, L501.2450, L100.0100 #### [facility] [address] [place], [address] GAP 11 Normal 5-15 [facility] Comment on above: Performed By: #### L 500.4050, L501.2450, L100.0100 #### [facility] [address] [place], [address] GFR/1.73 sq M.predicted among non-blacks MDRD (S/P/Bld) [Vol rate/Area] 44 mL/min/{1.73_m2} Low >60 [facility] Comment on above: Result Comment: mL/m in/1.73m2 CKD-EPI Creatinine Equation (2020) Performed By: #### L 500.4050, L501.2450, L100.0100 #### [facility] [address] [place], [address] Globulin (S) [Mass/Vol] 2.6 g/dL Normal 2.2-4.2 [facility] Comment on above: Performed By: #### L 500.4050, L501.2450, L100.0100 #### [facility] [address] [place], [address] Glucose [Mass/Vol] 114 mg/dL High 70-99 [facility] Comment on above: Performed By: #### L 500.4050, L501.2450, L100.0100 #### [facility] [address] [place], [address] Potassium [Moles/Vol] 3.6 mmol/L Normal 3.3-5.1 [facility] Comment on above: Performed By: #### L 500.4050, L501.2450, L100.0100 #### [facility] [address] [place], [address] Sodium [Moles/Vol] 140 mmol/L Normal 133-145 [facility] Comment on above: Performed By: #### L 500.4050, L501.2450, L100.0100 #### [facility] [address] [place], [address] T PROT 6.5 g/dL Normal 5.9-8.4 [facility] Comment on above: Performed By: #### L 500.4050, L501.2450, L100.0100 #### [facility] [address] [place], [address] Urea nitrogen [Mass/Vol] 16 mg/dL Normal 4-19 [facility] Comment on above: Performed By: #### L 500.4050, L501.2450, L100.0100 #### [facility] [address] [place], [address] Eosinophil percentageOrdered By: Pamella Zuniga on 09-24-2024 Eosinophils/100 WBC (Bld) 2.5 % 0-5 [facility] Erythrocyte distribution wid th ratioOrdered By: Pamella Zuniga on 09-24-2024 Erythrocyte distribution width (RBC) [Ratio] 12.9 % 11.6-14.6 [facility] Erythrocyte distribution wid th standard deviationOrdered By: Pamella Zuniga on 09-24-2024 Erythrocyte distribution width (RBC) [Ratio] 42.7 fl 35.1-43.9 [facility] Hematocrit Auto (Bld) [Volum e fraction]Ordered By: Pamella Zuniga on 09-24-2024 Hematocrit (Bld) [Volume fraction] 42.0 % 40-54 [facility] Hemoglobin measurementOrdere d By: Pamella Zuniga on 09-24-2024 Hemoglobin (Bld) [Mass/Vol] 14.3 g/dL 13.0-16.5 [facility] Immature granulocytes/100 WB C Auto (Bld)Ordered By: Pamella Zuniga on 09-24-2024 Immature granulocytes/100 WBC (Bld) 0.600 % 0.0-0.9 [facility] Comment on above: IG% - Immature Granu locytes (promyelocytes, myelocytes and metamyelocytes) > 1% indicates that a LEFT SHIFT is Present. Laboratory - Chemistry and C hemistry - challengeOrdered By: Pamella Zuniga on 09-24-2024 AST [Catalytic activity/Vol] 33 U/L <38 [facility] MCV (mean corpuscular volume ) determinationOrdered By: Pamella Zuniga on 09-24-2024 MCV (RBC) [Entitic vol] 91.3 fL 80-94 [facility] Magnesiumon 09-24-2024 Magnesium [Mass/Vol] 1.7 mg/dL Normal 1.5-2.2 [facility] Comment on above: Performed By: #### L 500.4050, L501.2450, L100.0100 #### [facility] [address] [facility] [place], [address] Magnesium measurement (mass/ volume)Ordered By: Pamella Zuniga on 09-24-2024 Magnesium (Unsp spec) [Mass/Vol] 1.7 mg/dL 1.5-2.2 [facility] Mean corpuscular hemoglobin (MCH) determinationOrdered By: Pamella Zuniga on 09-24-2024 MCH (RBC) [Entitic mass] 31.1 pg 27.0-32.0 [facility] Mean corpuscular hemoglobin concentration (MCHC) determinationOrdered By: Pamella Zuniga on 09-24-2024 MCHC (RBC) [Mass/Vol] 34.0 g/dL 32-36 [facility] Mean platelet volume determi nationOrdered By: Pamella Zuniga on 09-24-2024 Platelet mean volume (Bld) [Entitic vol] 9.3 fL 6.2-12.0 [facility] Monocyte percentageOrdered B y: Pamella Zuniga on 09-24-2024 Monocytes/100 WBC (Bld) 6.5 % 0-10 [facility] Neutrophil percentageOrdered By: Pamella Efrain on 09-24-2024 Neutrophils/100 WBC (Bld) 80.1 % High 47-70 [facility] Nucleated red blood cell per centageOrdered By: Pamella Efrain on 09-24-2024 Nucleated RBC/100 WBC (Bld) [Ratio] 0 % 0-5 [facility] Phosphoruson 09-24-2024 Phosphate [Mass/Vol] 2.8 mg/dL Normal 2.7-4.5 [facility] Comment on above: Performed By: #### L 500.4050, L501.2450, L100.0100 #### [facility] [address] [place], [address] Platelet countOrdered By: Bessie Zuniga on 09-24-2024 Platelets (Bld) [#/Vol] 192 10*3/uL 150-450 [facility] RBC Auto (Bld) [#/Vol]Ordere d By: Pamella Efrain on 09-24-2024 RBC (Bld) [#/Vol] 4.60 10*6/uL 4.6-6.2 [facility] Serum globulin measurementOr dered By: Pamella Zuniga on 09-24-2024 Globulin (S) [Mass/Vol] 2.6 g/dL 2.2-4.2 [facility] Serum or plasma alanine hilton otransferase (ALT) measurementOrdered By: Pamella Zuniga on 09-24-2024 ALT [Catalytic activity/Vol] 21 U/L <47 [facility] Serum or plasma albumin/glob ulin mass ratioOrdered By: Pamella Zuniga on 09-24-2024 Albumin/Globulin [Mass ratio] 1.5 {ratio} 0.9-2.4 [facility] Serum or plasma alkaline miguelangel sphatase measurementOrdered By: Pamella Zuniga on 09-24-2024 ALP [Catalytic activity/Vol] 88 U/L 40-129 [facility] Total proteinOrdered By: Velma Zuniga on 09-24-2024 Protein [Mass/Vol] 6.5 g/dL 5.9-8.4 [facility] White blood cell (WBC) count Ordered By: Pamella Zuniga on 09-24-2024 WBC (Bld) [#/Vol] 8.4 10*3/uL 4.4-11.0 [facility] Anion gap in Serum or Plasma Ordered By: Rebecca Lima on 09-23-2024 Anion gap [Moles/Vol] 11 mmol/L 5- [facility] BUN/creatinine ratioOrdered By: Rebecca Lima on 09-23-2024 Urea nitrogen/Creatinine [Mass ratio] 9.8 mg/mg Low - [facility] Basic Metabolic Profile (BMP )on 09-23-2024 BUN/CRE 9.8 RATIO Low 02-22 [facility] Comment on above: Performed By: #### L 501.2300, L500.2500 #### [facility] [address] [place], [address] Calcium [Mass/Vol] 7.8 mg/dL Normal 7.6-11.0 [facility] Comment on above: Performed By: #### L 501.2300, L500.2500 #### [facility] [address] [place], [address] Chloride [Moles/Vol] 107 mmol/L Normal 98-108 [facility] Comment on above: Performed By: #### L 501.2300, L500.2500 #### [facility] [address] [place], [address] CO2 [Moles/Vol] 21.8 mmol/L Normal 21.0-32.0 [facility] Comment on above: Performed By: #### L 501.2300, L500.2500 #### [facility] [address] [place], [address] Creatinine [Mass/Vol] 1.66 mg/dL High 0.70-1.20 [facility] Comment on above: Performed By: #### L 501.2300, L500.2500 #### [facility] [address] [place], [address] ECRCL 38.89 ml/min Low 50-250 [facility] Comment on above: Performed By: #### L 501.2300, L500.2500 #### [facility] [address] [place], [address] GAP 11 Normal 5-15 [facility] Comment on above: Performed By: #### L 501.2300, L500.2500 #### [facility] [address] [place], [address] GFR/1.73 sq M.predicted among non-blacks MDRD (S/P/Bld) [Vol rate/Area] 42 mL/min/{1.73_m2} Low >60 [facility] Comment on above: Result Comment: mL/m in/1.73m2 CKD-EPI Creatinine Equation (2020) Performed By: #### L 501.2300, L500.2500 #### [facility] [address] [place], [address] Glucose [Mass/Vol] 94 mg/dL Normal 70-99 [facility] Comment on above: Performed By: #### L 501.2300, L500.2500 #### [facility] [address] [place], [address] Potassium [Moles/Vol] 3.8 mmol/L Normal 3.3-5.1 [facility] Comment on above: Performed By: #### L 501.2300, L500.2500 #### [facility] [address] [place], [address] Sodium [Moles/Vol] 140 mmol/L Normal 133-145 [facility] Comment on above: Performed By: #### L 501.2300, L500.2500 #### [facility] [address] [place], [address] Urea nitrogen [Mass/Vol] 16 mg/dL Normal 4-19 [facility] Comment on above: Performed By: #### L 501.2300, L500.2500 #### [facility] [address] [place], [place], [address] Carbon dioxide, total [Moles /volume] in Central venous bloodOrdered By: Rebecca Lima on 09-23-2024 CO2 [Moles/Vol] 21.8 mmol/L 21.0-32.0 [facility] Chloride assayOrdered By: Will Lima on 09-23-2024 Chloride [Moles/Vol] 107 mmol/L 98-108 [facility] Glomerular filtration rate ( GFR) estimation/1.73 sq m using serum, plasma, or whole bOrdered By: Rebecca Lima on 09-23-2024 GFR/1.73 sq M.predicted among non-blacks MDRD (S/P/Bld) [Vol rate/Area] 42 mL/min/{1.73_m2} Low >60 [facility] Comment on above: mL/min/1.73m2 CKD-EP I Creatinine Equation (2020) Phosphoruson 09-23-2024 Phosphate [Mass/Vol] 2.6 mg/dL Low 2.7-4.5 [facility] Comment on above: Performed By: #### L 501.2300, L500.2500 #### [facility] [address] [place], [place], [id number] Potassium measurement (mass/ volume)Ordered By: Rebecca Lima on 09-23-2024 Potassium (Unsp spec) [Mass/Vol] 3.8 mmol/L 3.3-5.1 [facility] Serum creatinine measurement (mass/volume)Ordered By: Rebecca Lima on 09-23-2024 Creatinine [Mass/Vol] 1.66 mg/dL High 0.70-1.20 [facility] Serum glucose measurement (m ass/volume)Ordered By: Rebecca Lima on 09-23-2024 Glucose [Mass/Vol] 94 mg/dL 70-99 [facility] Serum or plasma calcium sammy urement (mass/volume)Ordered By: Rebecca Lima on 09-23-2024 Calcium [Mass/Vol] 7.8 mg/dL 7.6-11.0 [facility] Serum or plasma urea nitroge n measurement (mass/volume)Ordered By: Rebecca Lima on 09-23-2024 Urea nitrogen [Mass/Vol] 16 mg/dL 4-19 [facility] Sodium levelOrdered By: Cassi Lima on 09-23-2024 Sodium [Moles/Vol] 140 mmol/L 133-145 [facility] Absolute lymphocyte countOrd ered By: Rebecca Lima on 09-22-2024 Lymphocytes Auto (Unsp spec) [#/Vol] 0.97 10*3/uL 0.83-4.51 [facility] Absolute neutrophil countOrd ered By: Rebecca Lima on 09-22-2024 Neutrophils (Bld) [#/Vol] 6.7 10*3/uL 2.0-7.7 [facility] Automated lymphocyte count a s percentage of total leukocytesOrdered By: Rebecca iLma on 09-22-2024 Lymphocytes/100 WBC Auto (Unsp spec) 11.5 % Low 19-41 [facility] Basophil percentageOrdered B y: Rebecca Lima on 09-22-2024 Basophils/100 WBC (Bld) 0.6 % 0-1 [facility] Bilirubin, totalOrdered By: Rebecca Lmia on 09-22-2024 Bilirubin [Mass/Vol] 0.50 mg/dL 0.00-1.30 [facility] CBC W/Diff, Automatedon 09-04 Absolute Lymph 0.97 X10 3/uL Normal 0.83-4.51 [facility] Comment on above: Performed By: #### L 500.4050, L501.2450, L100.0100 #### [facility] [address] [place], [place], [id number] Absolute Neut 6.7 X10 3/uL Normal 2.0-7.7 [facility] Comment on above: Performed By: #### L 500.4050, L501.2450, L100.0100 #### [facility] [address] [place], [address] Basophils/100 WBC (Bld) 0.6 % Normal 0-1 [facility] Comment on above: Performed By: #### L 500.4050, L501.2450, L100.0100 #### [facility] [address] [place], [address] Eosinophils/100 WBC (Bld) 2.9 % Normal 0-5 [facility] Comment on above: Performed By: #### L 500.4050, L501.2450, L100.0100 #### [facility] [address] [place], [address] Erythrocyte distribution width (RBC) [Ratio] 13.2 % Normal 11.6-14.6 [facility] Comment on above: Performed By: #### L 500.4050, L501.2450, L100.0100 #### [facility] [address] [place], [address] Hematocrit (Bld) [Volume fraction] 35.2 % Low 40-54 [facility] Comment on above: Performed By: #### L 500.4050, L501.2450, L100.0100 #### [facility] [address] [place], [address] Hemoglobin (Bld) [Mass/Vol] 11.9 g/dL Low 13.0-16.5 [facility] Comment on above: Performed By: #### L 500.4050, L501.2450, L100.0100 #### [facility] [address] [place], [address] IG% 0.200 Normal 0.0-0.9 [facility] Comment on above: Result Comment: IG% - Immature Granulocytes (promyelocytes, myelocytes and metamyelocytes) > 1% indicates that a LEFT SHIFT is Present. Performed By: #### L 500.4050, L501.2450, L100.0100 #### [facility] [address] [place], [address] Lymphocytes/100 WBC (Bld) 11.5 % Low 19-41 [facility] Comment on above: Performed By: #### L 500.4050, L501.2450, L100.0100 #### [facility] [address] [place], [address] MCH (RBC) [Entitic mass] 31.6 pg Normal 27.0-32.0 [facility] Comment on above: Performed By: #### L 500.4050, L501.2450, L100.0100 #### [facility] [address] [place], [address] MCHC (RBC) [Mass/Vol] 33.8 g/dL Normal 32-36 [facility] Comment on above: Performed By: #### L 500.4050, L501.2450, L100.0100 #### [facility] [address] [place], [address] MCV (RBC) [Entitic vol] 93.4 fL Normal 80-94 [facility] Comment on above: Performed By: #### L 500.4050, L501.2450, L100.0100 #### [facility] [address] [place], [address] Monocytes/100 WBC (Bld) 5.6 % Normal 0-10 [facility] Comment on above: Performed By: #### L 500.4050, L501.2450, L100.0100 #### [facility] [address] [place], [address] Neutrophils/100 WBC (Bld) 79.2 % High 47-70 [facility] Comment on above: Performed By: #### L 500.4050, L501.2450, L100.0100 #### [facility] [address] [place], [address] Nucleated RBC (Bld) [#/Vol] 0 10*3/uL Normal 0-5 [facility] Comment on above: Performed By: #### L 500.4050, L501.2450, L100.0100 #### [facility] [address] [place], [address] Platelet mean volume (Bld) [Entitic vol] 9.3 fL Normal 6.2-12.0 [facility] Comment on above: Performed By: #### L 500.4050, L501.2450, L100.0100 #### [facility] [address] [place], [address] Platelets (Bld) [#/Vol] 171 10*3/uL Normal 150-450 [facility] Comment on above: Performed By: #### L 500.4050, L501.2450, L100.0100 #### [facility] [address] [place], [address] RBC (Bld) [#/Vol] 3.77 10*6/uL Low 4.6-6.2 [facility] Comment on above: Performed By: #### L 500.4050, L501.2450, L100.0100 #### [facility] [address] [place], [address] RDW SD 45.0 fl High 35.1-43.9 [facility] Comment on above: Performed By: #### L 500.4050, L501.2450, L100.0100 #### [facility] [address] [place], [address] WBC (Bld) [#/Vol] 8.4 10*3/uL Normal 4.4-11.0 [facility] Comment on above: Performed By: #### L 500.4050, L501.2450, L100.0100 #### [facility] [address] [place], [address] Comprehensive Metabolic Prof ryanne 09-22-2024 Albumin [Mass/Vol] 3.1 g/dL Low 3.4-4.8 [facility] Comment on above: Performed By: #### L 500.4050, L501.2450, L100.0100 #### [facility] [address] [place], [address] Albumin/Globulin [Mass ratio] 1.6 {ratio} Normal 0.9-2.4 [facility] Comment on above: Performed By: #### L 500.4050, L501.2450, L100.0100 #### [facility] [address] [place], [address] ALK PHOS 68 U/L Normal 40-129 [facility] Comment on above: Performed By: #### L 500.4050, L501.2450, L100.0100 #### [facility] [address] [place], [address] ALT [Catalytic activity/Vol] 19 U/L Normal <=46 [facility] Comment on above: Performed By: #### L 500.4050, L501.2450, L100.0100 #### [facility] [address] [place], [address] AST [Catalytic activity/Vol] 36 U/L Normal <=37 [facility] Comment on above: Result Comment: Hemo lysis present, Results??could be affected. ?? Performed By: #### L 500.4050, L501.2450, L100.0100 #### [facility] [address] [place], [address] Bilirubin [Mass/Vol] 0.50 mg/dL Normal 0.00-1.30 [facility] Comment on above: Performed By: #### L 500.4050, L501.2450, L100.0100 #### [facility] [address] [place], [address] BUN/CRE 11.2 RATIO Normal 10-20 [facility] Comment on above: Performed By: #### L 500.4050, L501.2450, L100.0100 #### [facility] [address] [place], [address] Calcium [Mass/Vol] 7.9 mg/dL Normal 7.6-11.0 [facility] Comment on above: Performed By: #### L 500.4050, L501.2450, L100.0100 #### [facility] [address] [place], [address] Chloride [Moles/Vol] 111 mmol/L High 98-108 [facility] Comment on above: Performed By: #### L 500.4050, L501.2450, L100.0100 #### [facility] [address] [place], [address] CO2 [Moles/Vol] 17.2 mmol/L Low 21.0-32.0 [facility] Comment on above: Performed By: #### L 500.4050, L501.2450, L100.0100 #### [facility] [address] [place], [address] Creatinine [Mass/Vol] 1.51 mg/dL High 0.70-1.20 [facility] Comment on above: Performed By: #### L 500.4050, L501.2450, L100.0100 #### [facility] [address] [place], [address] ECRCL 42.64 ml/min Low 50-250 [facility] Comment on above: Performed By: #### L 500.4050, L501.2450, L100.0100 #### [facility] [address] [place], [address] GAP 10 Normal 5-15 [facility] Comment on above: Performed By: #### L 500.4050, L501.2450, L100.0100 #### [facility] [address] [place], [address] GFR/1.73 sq M.predicted among non-blacks MDRD (S/P/Bld) [Vol rate/Area] 47 mL/min/{1.73_m2} Low >60 [facility] Comment on above: Result Comment: mL/m in/1.73m2 CKD-EPI Creatinine Equation (2020) Performed By: #### L 500.4050, L501.2450, L100.0100 #### [facility] [address] [place], [address] Globulin (S) [Mass/Vol] 2.0 g/dL Low 2.2-4.2 [facility] Comment on above: Performed By: #### L 500.4050, L501.2450, L100.0100 #### [facility] [address] [place], [address] Glucose [Mass/Vol] 87 mg/dL Normal 70-99 [facility] Comment on above: Performed By: #### L 500.4050, L501.2450, L100.0100 #### [facility] [address] [place], [address] Potassium [Moles/Vol] 4.0 mmol/L Normal 3.3-5.1 [facility] Comment on above: Result Comment: Hemo lysis present, Results??could be affected. ?? Performed By: #### L 500.4050, L501.2450, L100.0100 #### [facility] [address] [place], [address] Sodium [Moles/Vol] 138 mmol/L Normal 133-145 [facility] Comment on above: Performed By: #### L 500.4050, L501.2450, L100.0100 #### [facility] [address] [place], [address] T PROT 5.0 g/dL Low 5.9-8.4 [facility] Comment on above: Performed By: #### L 500.4050, L501.2450, L100.0100 #### [facility] [address] [place], [address] Urea nitrogen [Mass/Vol] 17 mg/dL Normal 4-19 [facility] Comment on above: Performed By: #### L 500.4050, L501.2450, L100.0100 #### [facility] [address] [place], [address] Eosinophil percentageOrdered By: Rebecca Lima on 09-22-2024 Eosinophils/100 WBC (Bld) 2.9 % 0-5 [facility] Erythrocyte distribution wid th ratioOrdered By: Rebecca Lima on 09-22-2024 Erythrocyte distribution width (RBC) [Ratio] 13.2 % 11.6-14.6 [facility] Erythrocyte distribution wid th standard deviationOrdered By: Rebecca Lima on 09-22-2024 Erythrocyte distribution width (RBC) [Ratio] 45.0 fl High 35.1-43.9 [facility] Hematocrit Auto (Bld) [Volum e fraction]Ordered By: Rebecca Lima on 09-22-2024 Hematocrit (Bld) [Volume fraction] 35.2 % Low 40-54 [facility] Hemoglobin measurementOrdere d By: Rebecca Lima on 09-22-2024 Hemoglobin (Bld) [Mass/Vol] 11.9 g/dL Low 13.0-16.5 [facility] Immature granulocytes/100 WB C Auto (Bld)Ordered By: Rebecca Lima on 09-22-2024 Immature granulocytes/100 WBC (Bld) 0.200 % 0.0-0.9 [facility] Comment on above: IG% - Immature Granu locytes (promyelocytes, myelocytes and metamyelocytes) > 1% indicates that a LEFT SHIFT is Present. Laboratory - Chemistry and C hemistry - challengeOrdered By: Rebecca Lima on 09-22-2024 AST [Catalytic activity/Vol] 36 U/L <38 [facility] Comment on above: Hemolysis present, R esults could be affected. MCV (mean corpuscular volume ) determinationOrdered By: Rebecca Lima on 09-22-2024 MCV (RBC) [Entitic vol] 93.4 fL 80-94 [facility] Magnesiumon 09-22-2024 Magnesium [Mass/Vol] 1.8 mg/dL Normal 1.5-2.2 [facility] Comment on above: Performed By: #### L 500.4050, L501.2450, L100.0100 #### [facility] [address] [place] [address], [address] Magnesium measurement (mass/ volume)Ordered By: Rebecca Lima on 09-22-2024 Magnesium (Unsp spec) [Mass/Vol] 1.8 mg/dL 1.5-2.2 [facility] Mean corpuscular hemoglobin (MCH) determinationOrdered By: Rebecca Lima on 09-22-2024 MCH (RBC) [Entitic mass] 31.6 pg 27.0-32.0 [facility] Mean corpuscular hemoglobin concentration (MCHC) determinationOrdered By: Rebecca Lima on 09-22-2024 MCHC (RBC) [Mass/Vol] 33.8 g/dL 32-36 [facility] Mean platelet volume determi nationOrdered By: Rebecca Lima on 09-22-2024 Platelet mean volume (Bld) [Entitic vol] 9.3 fL 6.2-12.0 [facility] Monocyte percentageOrdered B y: Rebecca Lima on 09-22-2024 Monocytes/100 WBC (Bld) 5.6 % 0-10 [facility] Neutrophil percentageOrdered By: Rebecca Lima on 09-22-2024 Neutrophils/100 WBC (Bld) 79.2 % High 47-70 [facility] Nucleated red blood cell per centageOrdered By: Rebecca Lima on 09-22-2024 Nucleated RBC/100 WBC (Bld) [Ratio] 0 % 0-5 [facility] Phosphoruson 09-22-2024 Phosphate [Mass/Vol] 2.3 mg/dL Low 2.7-4.5 [facility] Comment on above: Performed By: #### L 500.4050, L501.2450, L100.0100 #### [facility] [address] [place], [address] Platelet countOrdered By: Will Lima on 09-22-2024 Platelets (Bld) [#/Vol] 171 10*3/uL 150-450 [facility] RBC Auto (Bld) [#/Vol]Ordere d By: Rebecca Lima on 09-22-2024 RBC (Bld) [#/Vol] 3.77 10*6/uL Low 4.6-6.2 [facility] Serum globulin measurementOr dered By: Rebecca Lima on 09-22-2024 Globulin (S) [Mass/Vol] 2.0 g/dL Low 2.2-4.2 [facility] Serum or plasma alanine hilton otransferase (ALT) measurementOrdered By: Rebecca Lima on 09-22-2024 ALT [Catalytic activity/Vol] 19 U/L <47 [facility] Serum or plasma albumin sammy urement (mass/volume)Ordered By: Rebecca Lima on 09-22-2024 Albumin [Mass/Vol] 3.1 g/dL Low 3.4-4.8 [facility] Serum or plasma albumin/glob ulin mass ratioOrdered By: Rebecca Lima on 09-22-2024 Albumin/Globulin [Mass ratio] 1.6 {ratio} 0.9-2.4 [facility] Serum or plasma alkaline miguelangel sphatase measurementOrdered By: Rebecca Lima on 09-22-2024 ALP [Catalytic activity/Vol] 68 U/L 40-129 [facility] Total proteinOrdered By: Raina Lima on 09-22-2024 Protein [Mass/Vol] 5.0 g/dL Low 5.9-8.4 [facility] White blood cell (WBC) count Ordered By: Rebecca Lima on 09-22-2024 WBC (Bld) [#/Vol] 8.4 10*3/uL 4.4-11.0 [facility] Brain W/WO Contraston 2024 Brain W/WO Contrast [facility] Imaging Services [address] [place] [address] Brain W/WO Contrast MR#: [id number] Acct: [id number] Name: ITZEL GOMEZ Rep #: [id number] : 1945 M 79 From: Tulio Simpson MD PCP: [facility] Status: ADM KESHAV Study: Brain W/WO Contrast Date of Exam: 09/21/24 Exam# [id number] Ordering Dr: Linda Falcon MD PROCEDURE: BRAIN W/WO CONTRAST 09/21/2024 REASON FOR EXAM: TIA/CVA Dizziness. Unsteady gait. Nausea. TECHNIQUE: Routine brain MRI without and with intravenous contrast. Multiplanar and multisequence images were obtained. CONTRAST: Gadolinium VOLUME: 18 mL COMPARISON: CT head 09/20/2024 FINDINGS: Diffusion sequence demonstrates abnormal increased signal with corresponding decreased ADC signal within the right cerebellum measuring 46 mm by 33 mm consistent with acute nonhemorrhagic infarct. FLAIR and T2 sequences demonstrate increased signal at the right cerebellar site of acute infarct. Additionally there is tkkz-pl-iohsxeot increase signal in the branden, periventricular and subcortical white matter. Nonspecific, likely chronic small vessel ischemic change. Mild generalized atrophy. No MRI evidence of intracranial hemorrhage. No evidence of acute or chronic intraparenchymal hemorrhage. No mass effect. No midline shift. Following contrast administration, no enhancing lesions seen within the brain. MRI/Brain W/WO Contrast IMPRESSION: 1. Acute nonhemorrhagic infarct right cerebellum. 2. Cvih-zt-bxvaqker nonspecific chronic white matter changes, likely chronic small-vessel ischemic change. 3. Mild generalized atrophy. 4. No enhancing lesions Reading Location: [facility] CC: Dr. Linda Falcon MD; [facility] Bathing Suit Maker: Signed Normal [facility] CBC W/Diff, Automatedon 09-03 Absolute Lymph 0.71 X10 3/uL Low 0.83-4.51 [facility] Comment on above: Performed By: #### L 100.0100 #### [facility] Laboratory [address] [place], [address] Absolute Neut 10.0 X10 3/uL High 2.0-7.7 [facility] Comment on above: Performed By: #### L 100.0100 #### [facility] [address] [place], [address] Basophils/100 WBC (Bld) 0.4 % Normal 0-1 [facility] Comment on above: Performed By: #### L 100.0100 #### [facility] [address] [place], [address] Eosinophils/100 WBC (Bld) 0.5 % Normal 0-5 [facility] Comment on above: Performed By: #### L 100.0100 #### [facility] [address] [place], [address] Erythrocyte distribution width (RBC) [Ratio] 13.3 % Normal 11.6-14.6 [facility] Comment on above: Performed By: #### L 100.0100 #### [facility] [address] [place], [address] Hematocrit (Bld) [Volume fraction] 40.1 % Normal 40-54 [facility] Comment on above: Performed By: #### L 100.0100 #### [facility] [address] [place], [address] Hemoglobin (Bld) [Mass/Vol] 13.6 g/dL Normal 13.0-16.5 [facility] Comment on above: Performed By: #### L 100.0100 #### [facility] [address] [place], [address] IG% 0.400 Normal 0.0-0.9 [facility] Comment on above: Result Comment: IG% - Immature Granulocytes (promyelocytes, myelocytes and metamyelocytes) > 1% indicates that a LEFT SHIFT is Present. Performed By: #### L 100.0100 #### [facility] [address] [place], [address] Lymphocytes/100 WBC (Bld) 6.3 % Low 19-41 [facility] Comment on above: Performed By: #### L 100.0100 #### [facility] [address] [place], [address] MCH (RBC) [Entitic mass] 31.9 pg Normal 27.0-32.0 [facility] Comment on above: Performed By: #### L 100.0100 #### [facility] [address] [place], [address] MCHC (RBC) [Mass/Vol] 33.9 g/dL Normal 32-36 [facility] Comment on above: Performed By: #### L 100.0100 #### [facility] [address] [place], [address] MCV (RBC) [Entitic vol] 93.9 fL Normal 80-94 [facility] Comment on above: Performed By: #### L 100.0100 #### [facility] [address] [place], [address] Monocytes/100 WBC (Bld) 3.9 % Normal 0-10 [facility] Comment on above: Performed By: #### L 100.0100 #### [facility] [address] [place], [address] Neutrophils/100 WBC (Bld) 88.5 % High 47-70 [facility] Comment on above: Performed By: #### L 100.0100 #### [facility] [address] [place], [address] Nucleated RBC (Bld) [#/Vol] 0 10*3/uL Normal 0-5 [facility] Comment on above: Performed By: #### L 100.0100 #### [facility] [address] [place], [address] Platelet mean volume (Bld) [Entitic vol] 8.9 fL Normal 6.2-12.0 [facility] Comment on above: Performed By: #### L 100.0100 #### [facility] [address] [place], [address] Platelets (Bld) [#/Vol] 188 10*3/uL Normal 150-450 [facility] Comment on above: Performed By: #### L 100.0100 #### [facility] [address] [place], [address] RBC (Bld) [#/Vol] 4.27 10*6/uL Low 4.6-6.2 [facility] Comment on above: Performed By: #### L 100.0100 #### [facility] [address] [place], [address] RDW SD 45.6 fl High 35.1-43.9 [facility] Comment on above: Performed By: #### L 100.0100 #### [facility] [address] [place], [address] WBC (Bld) [#/Vol] 11.3 10*3/uL High 4.4-11.0 [facility] Comment on above: Performed By: #### L 100.0100 #### [facility] [address] [place], [address] Calculated very low density lipoprotein (VLDL) cholesterol measurementOrdered By: Linda Falcon on 09-21-2024 Calculated very low density lipoprotein (VLDL) cholesterol measurement 23 mg/dL 5-40 [facility] Comprehensive Metabolic Prof ilon 09-21-2024 Albumin [Mass/Vol] 3.7 g/dL Normal 3.4-4.8 [facility] Comment on above: Order Comment: Comme nts: NPO at [place] prior to lipid panel Performed By: #### L 500.4050, L501.2450, L100.0100 #### [facility] [address] [place], [address] Albumin/Globulin [Mass ratio] 1.8 {ratio} Normal 0.9-2.4 [facility] Comment on above: Order Comment: Comme nts: NPO at [place] prior to lipid panel Performed By: #### L 500.4050, L501.2450, L100.0100 #### [facility] [address] [place], [address] ALK PHOS 85 U/L Normal 40-129 [facility] Comment on above: Order Comment: Comme nts: NPO at [place] prior to lipid panel Performed By: #### L 500.4050, L501.2450, L100.0100 #### [facility] [address] [place], [address] ALT [Catalytic activity/Vol] 13 U/L Normal <=46 [facility] Comment on above: Order Comment: Comme nts: NPO at [place] prior to lipid panel Performed By: #### L 500.4050, L501.2450, L100.0100 #### [facility] [address] [place], [address] AST [Catalytic activity/Vol] 21 U/L Normal <=37 [facility] Comment on above: Order Comment: Comme nts: NPO at [place] prior to lipid panel Performed By: #### L 500.4050, L501.2450, L100.0100 #### [facility] [address] [place], [address] Bilirubin [Mass/Vol] 0.53 mg/dL Normal 0.00-1.30 [facility] Comment on above: Order Comment: Comme nts: NPO at [place] prior to lipid panel Performed By: #### L 500.4050, L501.2450, L100.0100 #### [facility] [address] [place], [address] BUN/CRE 11.1 RATIO Normal 10-20 [facility] Comment on above: Order Comment: Comme nts: NPO at [place] prior to lipid panel Performed By: #### L 500.4050, L501.2450, L100.0100 #### [facility] [address] [place], [address] Calcium [Mass/Vol] 8.2 mg/dL Normal 7.6-11.0 [facility] Comment on above: Order Comment: Comme nts: NPO at [place] prior to lipid panel Performed By: #### L 500.4050, L501.2450, L100.0100 #### [facility] [address] [place], [address] Chloride [Moles/Vol] 109 mmol/L High 98-108 [facility] Comment on above: Order Comment: Comme nts: NPO at [place] prior to lipid panel Performed By: #### L 500.4050, L501.2450, L100.0100 #### [facility] [address] [place], [address] CO2 [Moles/Vol] 20.5 mmol/L Low 21.0-32.0 [facility] Comment on above: Order Comment: Comme nts: NPO at [place] prior to lipid panel Performed By: #### L 500.4050, L501.2450, L100.0100 #### [facility] [address] [place], [address] Creatinine [Mass/Vol] 1.49 mg/dL High 0.70-1.20 [facility] Comment on above: Order Comment: Comme nts: NPO at [place] prior to lipid panel Performed By: #### L 500.4050, L501.2450, L100.0100 #### [facility] [address] [place], [address] ECRCL 43.27 ml/min Low 50-250 [facility] Comment on above: Order Comment: Comme nts: NPO at [place] prior to lipid panel Performed By: #### L 500.4050, L501.2450, L100.0100 #### [facility] [address] [place], [address] GAP 10 Normal 5-15 [facility] Comment on above: Order Comment: Comme nts: NPO at [place] prior to lipid panel Performed By: #### L 500.4050, L501.2450, L100.0100 #### [facility] [address] [place], [address] GFR/1.73 sq M.predicted among non-blacks MDRD (S/P/Bld) [Vol rate/Area] 47 mL/min/{1.73_m2} Low >60 [facility] Comment on above: Order Comment: Comme nts: NPO at [place] prior to lipid panel Result Comment: mL/m in/1.73m2 CKD-EPI Creatinine Equation (2020) Performed By: #### L 500.4050, L501.2450, L100.0100 #### [facility] [address] [place], [address] Globulin (S) [Mass/Vol] 2.1 g/dL Low 2.2-4.2 [facility] Comment on above: Order Comment: Comme nts: NPO at [place] prior to lipid panel Performed By: #### L 500.4050, L501.2450, L100.0100 #### [facility] [address] [place], [address] Glucose [Mass/Vol] 116 mg/dL High 70-99 [facility] Comment on above: Order Comment: Comme nts: NPO at [place] prior to lipid panel Performed By: #### L 500.4050, L501.2450, L100.0100 #### [facility] [address] [place], [address] Potassium [Moles/Vol] 4.6 mmol/L Normal 3.3-5.1 [facility] Comment on above: Order Comment: Comme nts: NPO at [place] prior to lipid panel Performed By: #### L 500.4050, L501.2450, L100.0100 #### [facility] [address] [place], [address] Sodium [Moles/Vol] 140 mmol/L Normal 133-145 [facility] Comment on above: Order Comment: Comme nts: NPO at [place] prior to lipid panel Performed By: #### L 500.4050, L501.2450, L100.0100 #### [facility] [address] [place], [address] T PROT 5.9 g/dL Normal 5.9-8.4 [facility] Comment on above: Order Comment: Comme nts: NPO at [place] prior to lipid panel Performed By: #### L 500.4050, L501.2450, L100.0100 #### [facility] [address] [place], [address] Urea nitrogen [Mass/Vol] 17 mg/dL Normal 4-19 [facility] Comment on above: Order Comment: Comme nts: NPO at [place] prior to lipid panel Performed By: #### L 500.4050, L501.2450, L100.0100 #### [facility] [address] [place], [address] Echocardiogram study reportO rdered By: Wilbert Garcia on 09-21-2024 Study report [facility] Cardiovascular Services [address] [place] [address] Echo Complete 09/21/24 1452 MR#: [id number] Acct: [id number] Name: ITZEL GOMEZ Rep #:[id number] : 1945 79 From: Wilbert Prado Attending Dr: DO Renny Gallegos tatus: ADM IN Ordering Dr: Linda Falcon MD Date: 09/20/24 Location: [facility] Sex: M C Admitted: 09/21/24 Reason For Study Reason For Study: TIA/CVA Procedure This was a 2D Doppler, Color Flow transthoracic echocardiogram. Exam performed portable in patient room. Left Ventricle Normal LV size. Mild concentric left ventricular hypertrophy. Left ventricular systolic function is normal. The left ventricular ejection fraction is 60 %. Stage 1 diastolic dysfunction. No regional wall motion abnormalities noted. Right Ventricle Normal RV size. Normal systolic function. Atria Normal left atrium. Normal right atrium. Mitral Valve Bileaflet diffuse mitral valve thickening. Mild (1+) eccentric mitral valve insufficiency. Tricuspid Valve Normal tricuspid valve. Mild (1+) tricuspid valve insufficiency. Pulmonary artery systolic pressure is 25 mmHg. Aortic Valve Trisinus/trileaflet aortic valve. Mild focal aortic valve calcification. Mild (1+) aortic valve insufficiency. Pulmonic Valve Normal pulmonic valve. Great Vessels Mildly calcified aortic root. The pulmonary artery is normal size. Inferior venacava collapse with respiration. Pericardium/Pleural No pericardial effusion. MMode/2D Measurements & Calculations LVIDd: 4.1 cm IVSd: 1.3 cm LVOT diam: 2.1 cm LVIDs: 2.6 cm LVPWd: 1.2 cm LVOT area: 3.6 cm2 RVDd: 3.6 cm FS: 36.3 % LAV(MOD-bp): 37.9 ml LVAd ap4: 29.2 cm2 LVAd ap2: 27.4 cm2 LAV(MOD-bp) Indexed: 19.2 ml/m2 LVLd ap4: 9.1 cm LVLd ap2: 8.5 cm LAV(MOD-sp2): 39.5 ml EDV(MOD-sp4): 76.5 ml EDV(MOD-sp2): 72.8 ml LAV(MOD-sp4): 32.7 ml EDV(sp4-el): 79.5 ml EDV(sp2-el): 74.4 ml LVAs ap4: 14.8 cm2 LVAs ap2: 15.1 cm2 LVLs ap4: 7.7 cm LVLs ap2: 7.0 cm ESV(MOD-sp4): 24.7 ml ESV(MOD-sp2): 28.4 ml ESV(sp4-el): 24.2 ml ESV(sp2-el): 27.8 ml EF(MOD-sp4): 67.7 % EF(MOD-sp2): 60.9 % EF(sp4-el): 69.6 % SV(MOD-sp4): 51.8 ml SV(MOD-sp2): 44.3 ml SV(sp4-el): 55.3 ml SI(MOD-sp4): 26.3 ml/m2 SI(MOD-sp2): 22.5 ml/m2 Ao sinus diam: 3.[address] Junction: 3.0 cm LA A4 area: 12.5 cm2 LA dimension(2D): 4.2 cm TAPSE: 2.1 cm RA A4 area: 8.6 cm2 Time Measurements MV dec time: 0.26 sec Doppler Measurements & Calculations MV E max marycarmen: 77.5 cm/sec Lat Peak E' Marycarmen: 9.0 cm/sec Med Peak E' Marycarmen: 8.2 cm/sec MV A max marycarmen: 83.7 cm/sec E/E' lat: 8.6 E/E' med: 9.4 MV E/A: 0.93 MV dec slope: 301.0 cm/sec2 Ao V2 max: 122.5 cm/sec AI max marycarmen: 357.9 cm/sec Ao max P.0 mmHg AI max P.2 mmHg Ao V2 mean: 82.0 cm/sec AI dec slope: 111.3 cm/sec2 Ao mean P.0 mmHg AI P1/2t: 941.6 msec Ao V2 VTI: 28.8 cm AV (velocity ratio): 0.85 LILIAM(I,D): 3.0 cm2 LILIAM(V,D): 2.6 cm2 LV V1 max: 88.1 cm/sec SV(LVOT): 87.0 ml PA V2 max: 104.2 cm/sec LV V1 max P.1 mmHg LV V1 mean P.7 mmHg LV V1 mean: 60.8 cm/sec LV V1 VTI: 24.5 cm TR max marycarmen: 239.2 cm/sec TR max P.9 mmHg ECHO/Echo Complete Interpretation Summary Normal LV size. Mild concentric left ventricular hypertrophy. Left ventricular systolic function is normal. The left ventricular ejection fraction is 60 %. Stage 1 diastolic dysfunction. Ordering Physician: Linda Falcon Referring Physician: [facility] Performed By: Letha Elias, CONNER 09/21/241633 Date _ Wilbert Garcia MD CC: Dr. Linda Falcon MD; Dr. Rebecca Lima DO; [facility] ~ Date Dictated: 09/21/24 1452 Date Transcribed: 09/21/241633 Bathing Suit Maker: Signed [facility] Work Phone: Electrocardiogram reportOrde red By: Wilbert Garcia on 09-21-2024 EKG study [facility] Cardiovascular Services [address] [place] [address] 12 Lead EKG 09/20/24 1409 MR#: [id number] Acct: [id number] Name: ITZEL GOMEZ Rep #:[id number] : 1945 79 From: Wilbert Garcia MD Attending Dr: Dr. Rebecca Lima DO S tatus: ADM KESHAV Ordering Dr: René Silva DO Date: Location: [facility] Sex: M C Admitted: 09/20/24 Test Reason : N/V Blood Pressure : */* mmHG Vent. Rate : 57 BPM Atrial Rate : * BPM P-R Int : * ms QRS Dur : 102 ms QT Int : 480 ms P-R-T Axes : * -59 85 degrees QTcB Int : 467 ms Junctional rhythm Left anterior fascicular block Abnormal ECG Confirmed by RUSS PIMENTEL, WILBERT ([id number]), marketing editor ANA PEARSON ([id number]) on 09/21/2024 9:26:56 AM Referred By: Confirmed By: WILBERT GARCIA MD 09/21/24 0926 Date _ Wilbert Garcia MD CC: Dr. Rebecca Lima DO; Dr. René Silva DO; [facility] ~ Signed [facility] Work Phone: Hemoglobin A1con 09-21-2024 HbA1c (Bld) [Mass fraction] 5.5 % Normal <=5.6 [facility] Comment on above: Result Comment: Norm al < 5.7 % Prediabetic 5.7 - 6.4 % Diabetic >or= 6.5 % Please note range changes. Performed By: #### L 500.8520, L501.2450, L100.0100 #### [facility] [address] [place], [address] Hemoglobin A1c percentageOrd ered By: Linda Falcon on 09-21-2024 HbA1c (Bld) [Mass fraction] 5.5 % <5.7 [facility] Comment on above: Normal < 5.7 % Predi abetic 5.7 - 6.4 % Diabetic >or= 6.5 % Please note range changes. LDL calc ser/plasOrdered By: Linda Falcon on 09-21-2024 Cholesterol in LDL [Mass/Vol] 91 mg/dL [facility] Comment on above: Jelnitwnnd=651-164 m g/dL & Higher Qvuj=788 mg/dL or greater Lipid Profileon 09-21-2024 CHOL:HDL 2.89 Normal [facility] Comment on above: Order Comment: Comme nts: NPO at [place] prior to lipid panel Performed By: #### L 500.4050, L501.2450, L100.0100 #### [facility] [address] [place], [address] Cholesterol [Mass/Vol] 175 mg/dL Normal <=200 [facility] Comment on above: Order Comment: Comme nts: NPO at [place] prior to lipid panel Result Comment: Chol esterol level, Desirable <200 mg/dL Borderline high cholesterol 200-239 mg/dL High cholesterol >=240 mg/dL Recommendations of the NCEP Adult Treatment Panel for the following risk-cutoff thresholds for the [place] population. Performed By: #### L 500.4050, L501.2450, L100.0100 #### [facility] [address] [place], [address] Cholesterol in HDL [Mass/Vol] 61 mg/dL Normal [facility] Comment on above: Order Comment: Comme nts: NPO at [place] prior to lipid panel Result Comment: Saima onal Cholesterol Education Program (NCEP) guidelines: <40 mg/dL: Low HDL-cholesterol (major risk factor for CHD) >= 60 mg/dL: High HDL-cholesterol (negative risk factor for CHD) HDL-cholesterol is affected by a number of factors, e.g. smoking, exercise, hormones, sex and age. Performed By: #### L 500.4050, L501.2450, L100.0100 #### [facility] [address] [place], [address] Cholesterol in LDL [Mass/Vol] 91 mg/dL Normal [facility] Comment on above: Order Comment: Comme nts: NPO at [place] prior to lipid panel Result Comment: Bord xwumbj=088-109 mg/dL Higher Otkn=797 mg/dL or greater Performed By: #### L 500.4050, L501.2450, L100.0100 #### [facility] [address] [place], [address] Cholesterol in VLDL [Mass/Vol] 23 mg/dL Normal 5-40 [facility] Comment on above: Order Comment: Comme nts: NPO at [place] prior to lipid panel Performed By: #### L 500.4050, L501.2450, L100.0100 #### [facility] [address] [place], [address] Triglyceride [Mass/Vol] 117 mg/dL Normal [facility] Comment on above: Order Comment: Comme nts: NPO at [place] prior to lipid panel Result Comment: The drugs N-Acetylcysteine and Metamizole may falsely depress this assay. Normal range: <150 mg/dL Borderline High: 150-199 mg/dL High: 200-499 mg/dL Very High: >500 mg/dL Performed By: #### L 500.4050, L501.2450, L100.0100 #### [facility] [address] [place], [address] MR/CON.PCM.NEon 09-21-2024 MR/CON.PCM.NE [facility] Medical Records Department [address] [place] [address] Consultation - Neurology 09/21/24 1133 MR#: [id number] Acct: [id number] Name: ITZEL GOMEZ Rep #: [id number] : 1945 79 From: Carol Lima MD PCP: [facility] Status:ADM KESHAV Location: [place] [address] Assessment and Plan: Stroke Assessment/Plan ITZEL GOMEZ, is a 79 year old right handed male ex-smoker with history of HTN and multiple metastatic carcinoid tumors, on Asa 81mg who presents with dizziness (vertigo) and nausea on 09/20/24. He reports he went to bed normal midnight 09/19/24 evening and awoke 09/20/24 with vertigo. He also noted unsteady gait and had to hold onto the harrison. He presented [place] ER. CT brain negative for acute changes. CTA head/neck negative. He was admitted. MRI brain DWI shows acute right cerebellar infarct. LDL 91. HgbA1c 5.5. Neurological examination shows nonfocal exam. 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 2) Continue vascular risk factor modification. Recommend starting lipitor 40. 3) Complete stroke work-up with TTE and PT/OT consults. 4) If TTE negative, then inpatient stroke work-up completed and final recommendation is for medical management. Recommend outpatient Event monitor and follow-up in neurology clinic. Primary team messaged recs on backline. HPI Consult Data Date of Consult: 09/21/24 HPI Narrative HPI Narrative: ITZEL GOMEZ, is a 79 year old right handed male ex-smoker with history of HTN and multiple metastatic carcinoid tumors, on Asa 81mg who presents with dizziness (vertigo) and nausea on 09/20/24. He reports he went to bed normal midnight 09/19/24 evening and awoke 09/20/24 with vertigo. He also noted unsteady gait and had to hold onto the harrison. He presented [place] ER. CT brain negative for acute changes. CTA head/neck negative. He was admitted. MRI brain DWI shows acute right cerebellar infarct. LDL 91. HgbA1c 5.5. Patient denies history of prior stroke. He has persistent symptoms. +N/V today. [facility] Medical History Bilateral pneumonia History of COVID-19 Anxiety and depression Cancer Former smoker Hypertension Stroke/cerebrovascular accident Multiple metastatic carcinoid tumors Home Medications ???Medication ???Instructions ???Recorded ???Last Taken ???Type amlodipine 10 mg tablet 10 mg PO DAILY Blood pressure 90 0 09/20/20 09/20/24 Rx days #90 tabs loratadine 10 mg tablet 10 mg PO DAILY ALLERGIES 09/21/21 09/20/21 History aspirin 81 mg tablet 81 mg PO DAILY heart health 09/20/24 History colestipol 1 gram tablet 1 g PO BID 09/20/24 09/20/24 Histo ry escitalopram oxalate 10 mg tablet 10 mg PO DAILY depression 5 09/20/24 History levothyroxine 25 mcg tablet 25 mcg PO DAILY thyroid 09/20/24 0 09/19/24 History (Levo-T) loperamide 2 mg tablet (Diamode) 4 mg PO BID 09/20/24 09/20/24 Hist ory octreotide acetate 30 mg IM Q28D 09/20/24 Unknown His tory oxycodone-acetaminophe n 5 mg-325 1 tab PO Q6H PRN pain 09/20/24 History mg tablet potassium chloride 20 mEq 20 meq PO DAILY 09/20/24 09/20/24 History tablet,extended release telotristat ethyl 250 mg tablet 250 mg PO TID 09/20/24 09/20/24 Hi story (Xermelo) Allergy/AdvReac Type Severity Reaction Status Date / Time amoxicillin Allergy Rash Verified 09/20/24 13:53 codeine AdvReac Nausea Verified 09/20/24 13:53 Family History Mother Heart disease Myocardial infarction CAD (coronary artery disease) Father COPD (chronic obstructive pulmonary disease) Surgical History H/O resection of small bowel S/P colectomy History of appendectomy History of cholecystectomy Social History household members: spouse Smoking Status: Never smoker how long ago did patient quit smoking: Patient smoked in the only and quit remotely. alcohol intake: never substance use type: does not use Vital Signs Vital Signs Vital Signs: 09/20/24 13:54 09/20/24 14:15 09/20/24 14:39 Temperature 97.6 F L Temperature Source Oral Pulse Rate 57 L 61 Pulse Strength Respiratory Rate 14 16 Respiratory Effort Respiratory Depth Respiratory Pattern Blood Pressure 191/93 H 174/77 H Blood Pressure Mean 125 109 Blood Pressure Source Blood Pressure Position Blood Pressure Location Pulse Ox 96 96 96 Oxygen Delivery Method Room Air Room Air Room Air 09/20/24 14:45 09/20/24 15:15 09/20/24 15:58 Temperature Temperature Source Pulse Rate (more content not included)... Normal [facility] Magnetic resonance imaging r eportOrdered By: Tulio Simpson on 09-21-2024 Study report [facility] Imaging Services [address] [place] [address] Brain W/WO Contrast MR#: [id number] Acct: [id number] Name: ITZEL GOMEZ Rep #: [id number] : 1945 M 79 From: William Simpson MD PCP: [facility] Status: ADM KESHAV Study:Brain W/WO Contrast Date of Exam: 09/21/24 Exam# [id number] Ordering Dr: Roseline Falcon MD PROCEDURE: BRAIN W/WO CONTRAST 09/21/2024 REASON FOR EXAM: TIA/CVA Dizziness. Unsteady gait. Nausea. TECHNIQUE: Routine brain MRI without and with intravenous contrast. Multiplanar and multisequence images were obtained. CONTRAST: Gadolinium VOLUME: 18 mL COMPARISON: CT head 09/20/2024 FINDINGS: Diffusion sequence demonstrates abnormal increased signal with corresponding decreased ADC signal within the right cerebellum measuring 46 mm by 33 mm consistent with acute nonhemorrhagic infarct. FLAIR and T2 sequences demonstrate increased signal at the right cerebellar siteof acute infarct. Additionally there is mgxk-ft-eqdwtgdy increase signal in the branden, periventricular and subcortical white matter. Nonspecific, likely chronic small vessel ischemic change. Mild generalized atrophy. No MRI evidence of intracranial hemorrhage. No evidence of acute or chronic intraparenchymal hemorrhage. No mass effect. No midline shift. Following contrast administration, no enhancing lesions seen within the brain. MRI/Brain W/WO Contrast IMPRESSION: 1. Acute nonhemorrhagic infarct right cerebellum. 2. Kijp-qr-mgmndrtn nonspecific chronic white matter changes, likely chronic small-vessel ischemic change. 3. Mild generalized atrophy. 4. No enhancing lesions Reading [facility] CC: Dr[facility] MD; [facility] Bathing Suit Maker: Signed [facility] Screening total cholesterol/ high density lipoprotein (HDL) cholesterol ratioOrdered By: Linda Falcon on 09-21-2024 Cholesterol.total/Nicole sterol in HDL [Mass ratio] 2.89 {ratio} [facility] Serum or plasma cholesterol in HDL measurement (mass/volume)Ordered By: Linda Falcon on 09-21-2024 Cholesterol in HDL [Mass/Vol] 61 mg/dL >40 [facility] Comment on above: National Cholesterol Education Program (NCEP) guidelines:<40 mg/dL: Low HDL-cholesterol (major risk factor for CHD)>= 60 mg/dL: High HDL-cholesterol (negative risk factor for CHD)HDL-cholesterol is affected by a number of factors, e.g. smoking, exercise, hormones, sex and age. Serum or plasma cholesterol measurement (mass/volume)Ordered By: Linda Falcon on 09-21-2024 Cholesterol [Mass/Vol] 175 mg/dL <201 [facility] Comment on above: Cholesterol level, D esirable <200 mg/dLBorderline high cholesterol 200-239 mg/dLHigh cholesterol >=240 mg/dLRecommendations of the NCEP Adult Treatment Panel for the following risk-cutoff thresholds for the [place] population. TSH DL <= 0.005 mIU/L QnOrde red By: Linda Falcon on 09-21-2024 TSH Qn 2.040 uIU/mL 0.300-4.200 [facility] Thyroid Stim Hormone (TSH)on 09-21-2024 TSH 2.040 uIU/mL Normal 0.300-4.200 [facility] Comment on above: Order Comment: Comme nts: NPO at [place] prior to lipid panel Performed By: #### L 500.4050, L501.2450, L100.0100 #### [facility] Laboratory [address] [place], [address] Triglycerides measurementOrd ered By: Linda Falcon on 09-21-2024 Triglyceride [Mass/Vol] 117 mg/dL <199 [facility] Comment on above: The drugs N-Acetylcy steine and Metamizole may falsely depress this assay. Normal range: <150 mg/dLBorderline High: 150-199 mg/dLHigh: 200-499 mg/dLVery High: >500 mg/dL 12 Lead EKGon 09-20-2024 12 Lead EKG [facility] Cardiovascular Services [address] [place] [address] 12 Lead EKG 09/20/24 1409 MR#: [id number] Acct: [id number] Name: ITZEL GOMEZ Rep #: [id number] : 1945 79 From: Wilbert Garcia MD Attending Dr: Dr. Rebecca Lima DO Status: ADM I NO Ordering Dr: René Silva DO Date: 09/20/24 Location: [facility] Sex: M C Admitted: 09/20/24 Test Reason : N/V Blood Pressure : */* mmHG Vent. Rate : 57 BPM Atrial Rate : * BPM P-R Int : * ms QRS Dur : 102 ms QT Int : 480 ms P-R-T Axes : * -59 85 degrees QTcB Int : 467 ms Junctional rhythm Left anterior fascicular block Abnormal ECG Confirmed by WILBERT GARCIA MD ([id number]), marketing editor ANA PEARSON ([id number]) on 09/21/2024 9:26:56 AM Referred By: Confirmed By: WILBERT GARCIA MD 09/21/24 7507 Wilbert Garcia MD CC: Dr. Rebecca Lima DO; Dr. René Silva DO; [facility] Signed Normal [facility] Abdomen/Pelvis W IV Cont ONL Yon 09-20-2024 Abdomen/Pelvis W IV Cont ONLY [facility] Imaging Services [address] [place] [address] Abdomen/Pelvis W IV Cont ONLY MR#: [id number] Acct: [id number] Name: ITZEL GOMEZ Rep #: [id number] : 1945 M 79 From: Tee Hagan MD PCP: [facility] Status: REG ER Study: Abdomen/Pelvis W IV Cont ONLY Date of Exam: Exam# [id number] Ordering Dr: René Silva DO EXAM: CT Abdomen and Pelvis With Intravenous Contrast CLINICAL INDICATION: N/V TECHNIQUE: Axial computed tomography images of the abdomen and pelvis with intravenous contrast. This CT exam was performed using one or more of the following dose reduction techniques: automated exposure control, adjustment of the mA and/or kV according to patient size, and/or use of iterative reconstruction technique. COMPARISON: No relevant prior studies available. FINDINGS: LUNG BASES: Unremarkable. No mass. No consolidation. MEDIASTINUM: Mild esophageal hiatal hernia. ABDOMEN: LIVER: Fatty infiltration of the liver. GALLBLADDER AND BILE DUCTS: Unremarkable. No calcified stones. No ductal dilation. PANCREAS: Unremarkable. No mass. No ductal dilation. SPLEEN: Unremarkable. No splenomegaly. ADRENALS: Probable right adrenal adenoma. KIDNEYS AND URETERS: Right renal cysts. No hydronephrosis. STOMACH AND BOWEL: Fecal retention in the colon consistent with constipation. Colonic diverticulosis without acute diverticulitis. No obstruction. PELVIS: APPENDIX: No findings to suggest acute appendicitis. BLADDER: Unremarkable. No mass. REPRODUCTIVE: Unremarkable as visualized. ABDOMEN and PELVIS: INTRAPERITONEAL SPACE: Unremarkable. No free air. No significant fluid collection. BONES/JOINTS: No acute fracture. No dislocation. SOFT TISSUES: Unremarkable. VASCULATURE: Scattered calcified atherosclerotic disease of aorta. No abdominal aortic aneurysm. LYMPH NODES: Nonspecific lobulated isodense lesion in the pelvis measuring up to 3.4 cm. This could be enlarged lymph node. Neoplastic can not be excluded. Clinical correlation is recommended. CT/Abdomen/Pelvis W IV Cont ONLY IMPRESSION: 1. Nonspecific lobulated isodense lesion in the pelvis measuring up to 3.4 cm. This could be enlarged lymph node. Neoplastic can not be excluded. Clinical correlation is recommended. 2. Mild esophageal hiatal hernia. 3. Fecal retention in the colon consistent with constipation. 4. Colonic diverticulosis without acute diverticulitis. Reading Location: [facility] CC: Dr. René Silva DO; [facility] Bathing Suit Maker: Signed Normal [facility] Absolute lymphocyte countOrd ered By: René Silva on 09-20-2024 Lymphocytes Auto (Unsp spec) [#/Vol] 0.45 10*3/uL Low 0.83-4.51 [facility] Absolute neutrophil countOrd ered By: René Silva on 09-20-2024 Neutrophils (Bld) [#/Vol] 14.1 10*3/uL High 2.0-7.7 [facility] Activated partial thrombopla stin time (aPTT) in platelet poor plasma by coagulation aOrdered By: René Silva on 09-20-2024 aPTT Coag (PPP) [Time] 27.0 s 24.1-36.2 [facility] Anion gap in Serum or Plasma Ordered By: René Silva on 09-20-2024 Anion gap [Moles/Vol] 12 mmol/L 5-15 [facility] Automated lymphocyte count a s percentage of total leukocytesOrdered By: René Silva on 09-20-2024 Lymphocytes/100 WBC Auto (Unsp spec) 3.0 % Low 19-41 [facility] BUN/creatinine ratioOrdered By: René Silva on 09-20-2024 Urea nitrogen/Creatinine [Mass ratio] 13.6 mg/mg 10-20 [facility] Basophil percentageOrdered B y: René Silva on 09-20-2024 Basophils/100 WBC (Bld) 0.3 % 0-1 [facility] Bedside Glucoseon 09-20-2024 FINGERSTICK GLU 96 mg/dL Normal 74-106 [facility] Comment on above: Result Comment: BIMAL GEMENT OF PATIENT CARE PER NURSING PROTOCOL Performed By: #### L 499.0042 #### [facility] Laboratory [facility] [place], [address] Bilirubin Test strip Ql (U)O rdered By: René Silva on 09-20-2024 Bilirubin Ql (U) Negative Negative [facility] Bilirubin, totalOrdered By: René Silva on 09-20-2024 Bilirubin [Mass/Vol] 0.47 mg/dL 0.00-1.30 [facility] CBC W/Diff, Automatedon 09-03 Absolute Lymph 0.45 X10 3/uL Low 0.83-4.51 [facility] Comment on above: Performed By: #### L 500.4050, L501.2450, L100.0100 #### [facility] Laboratory [address] [place], [address] Absolute Neut 14.1 X10 3/uL High 2.0-7.7 [facility] Comment on above: Performed By: #### L 500.4050, L501.2450, L100.0100 #### [facility] [address] [place], [address] Basophils/100 WBC (Bld) 0.3 % Normal 0-1 [facility] Comment on above: Performed By: #### L 500.4050, L501.2450, L100.0100 #### [facility] [address] [place], [address] Eosinophils/100 WBC (Bld) 0.1 % Normal 0-5 [facility] Comment on above: Performed By: #### L 500.4050, L501.2450, L100.0100 #### [facility] [address] [place], [address] Erythrocyte distribution width (RBC) [Ratio] 13.3 % Normal 11.6-14.6 [facility] Comment on above: Performed By: #### L 500.4050, L501.2450, L100.0100 #### [facility] [address] [place], [address] Hematocrit (Bld) [Volume fraction] 47.0 % Normal 40-54 [facility] Comment on above: Performed By: #### L 500.4050, L501.2450, L100.0100 #### [facility] [address] [place], [address] Hemoglobin (Bld) [Mass/Vol] 15.8 g/dL Normal 13.0-16.5 [facility] Comment on above: Performed By: #### L 500.4050, L501.2450, L100.0100 #### [facility] [address] [place], [address] IG% 0.500 Normal 0.0-0.9 [facility] Comment on above: Result Comment: IG% - Immature Granulocytes (promyelocytes, myelocytes and metamyelocytes) > 1% indicates that a LEFT SHIFT is Present. Performed By: #### L 500.4050, L501.2450, L100.0100 #### [facility] [address] [place], [address] Lymphocytes/100 WBC (Bld) 3.0 % Low 19-41 [facility] Comment on above: Performed By: #### L 500.4050, L501.2450, L100.0100 #### [facility] [address] [place], [address] MCH (RBC) [Entitic mass] 31.7 pg Normal 27.0-32.0 [facility] Comment on above: Performed By: #### L 500.4050, L501.2450, L100.0100 #### [facility] [address] [place], [address] MCHC (RBC) [Mass/Vol] 33.6 g/dL Normal 32-36 [facility] Comment on above: Performed By: #### L 500.4050, L501.2450, L100.0100 #### [facility] [address] [place], [address] MCV (RBC) [Entitic vol] 94.2 fL High 80-94 [facility] Comment on above: Performed By: #### L 500.4050, L501.2450, L100.0100 #### [facility] [address] [place], [address] Monocytes/100 WBC (Bld) 3.2 % Normal 0-10 [facility] Comment on above: Performed By: #### L 500.4050, L501.2450, L100.0100 #### [facility] [address] [place], [address] Neutrophils/100 WBC (Bld) 92.9 % High 47-70 [facility] Comment on above: Performed By: #### L 500.4050, L501.2450, L100.0100 #### [facility] [address] [place], [address] Nucleated RBC (Bld) [#/Vol] 0 10*3/uL Normal 0-5 [facility] Comment on above: Performed By: #### L 500.4050, L501.2450, L100.0100 #### [facility] [address] [place], [address] Platelet mean volume (Bld) [Entitic vol] 8.9 fL Normal 6.2-12.0 [facility] Comment on above: Performed By: #### L 500.4050, L501.2450, L100.0100 #### [facility] [address] [place], [address] Platelets (Bld) [#/Vol] 213 10*3/uL Normal 150-450 [facility] Comment on above: Performed By: #### L 500.4050, L501.2450, L100.0100 #### [facility] [address] [place], [address] RBC (Bld) [#/Vol] 4.99 10*6/uL Normal 4.6-6.2 [facility] Comment on above: Performed By: #### L 500.4050, L501.2450, L100.0100 #### [facility] [address] [place], [address] RDW SD 46.4 fl High 35.1-43.9 [facility] Comment on above: Performed By: #### L 500.4050, L501.2450, L100.0100 #### [facility] [address] [place], [address] WBC (Bld) [#/Vol] 15.2 10*3/uL High 4.4-11.0 [facility] Comment on above: Performed By: #### L 500.4050, L501.2450, L100.0100 #### [facility] [address] [place], [address] Absolute Neut Normal 2.0-7.7 [facility] Comment on above: Result Comment: Canc elled via OM: MD Ordered Performed By: #### L 499.0042 #### [facility] [address] [place], [address] HCT Normal 40-54 [facility] Comment on above: Result Comment: Canc elled via OM: MD Ordered Performed By: #### L 499.0042 #### [facility] [address] [place], [address] HGB Normal 13.0-16.5 [facility] Comment on above: Result Comment: Canc elled via OM: MD Ordered Performed By: #### L 499.0042 #### [facility] [address] [place], [address] MCH Normal 27.0-32.0 [facility] Comment on above: Result Comment: Canc elled via OM: MD Ordered Performed By: #### L 499.0042 #### [facility] [address] [place], [address] MCHC Normal 32-36 [facility] Comment on above: Result Comment: Canc elled via OM: MD Ordered Performed By: #### L 499.0042 #### [facility] [address] [place], [address] MCV Normal 80-94 [facility] Comment on above: Result Comment: Canc elled via OM: MD Ordered Performed By: #### L 499.0042 #### [facility] [address] [place], [address] NEUT% Normal 47-70 [facility] Comment on above: Result Comment: Canc elled via OM: MD Ordered Performed By: #### L 499.0042 #### [facility] [address] [place], [address] PLT Normal 150-450 [facility] Comment on above: Result Comment: Canc elled via OM: MD Ordered Performed By: #### L 499.0042 #### [facility] [address] [place], [address] RBC Normal 4.6-6.2 [facility] Comment on above: Result Comment: Canc elled via OM: MD Ordered Performed By: #### L 499.0042 #### [facility] [address] [place], [address] RDW CV Normal 11.6-14.6 [facility] Comment on above: Result Comment: Canc elled via OM: MD Ordered Performed By: #### L 499.0042 #### [facility] [address] [place], [address] RDW SD Normal 35.1-43.9 [facility] Comment on above: Result Comment: Canc elled via OM: MD Ordered Performed By: #### L 499.0042 #### [facility] [address] [place], [address] WBC Normal 4.4-11.0 [facility] Comment on above: Result Comment: Canc elled via OM: MD Ordered Performed By: #### L 499.0042 #### [facility] [address] [place], [address] Calcium oxalate crystals det ection in urine sediment by light microscopyOrdered By: René Silva on 09-20-2024 Calcium oxalate crystals LM Ql (Urine sed) RARE /hpf [facility] Carbon dioxide, total [Moles /volume] in Central venous bloodOrdered By: René Silva on 09-20-2024 CO2 [Moles/Vol] 23.3 mmol/L 21.0-32.0 [facility] Chest PA and Lateralon 09-20 Chest PA and Lateral [facility] Imaging Services [address] [place], [place] [address] Chest PA and Lateral MR#: [id number] Acct: [id number] Name: ITZEL GOMEZ Rep #: [id number] : 1945 M 79 From: Navarro nolan MD PCP: [facility] Status: REG ER Study: Chest PA and Lateral Date of Exam: 09/20/24 Exam# [id number] Ordering Dr: René Silva DO PROCEDURE: CHEST PA AND LATERAL 09/20/2024 REASON FOR EXAM: DIZZINESS TECHNIQUE: Frontal and lateral views of the chest. COMPARISON: CT chest 09/21/2021 FINDINGS: Hardware: None Heart: The heart size is normal. Mediastinum: The mediastinal contour is unremarkable. Lungs: Mild bibasilar atelectasis. No focal consolidation. No pneumothorax. No pleural effusion. Bones: Degenerative changes are identified within the thoracic spine. RAD/Chest PA and Lateral IMPRESSION: NO ACUTE FINDINGS. Reading Location: [facility] CC: Dr. René Silva DO; [facility] Bathing Suit Maker: Signed Normal [facility] Chloride assayOrdered By: Daniel Silva on 09-20-2024 Chloride [Moles/Vol] 106 mmol/L 98-108 [facility] Comprehensive Metabolic Prof ilon 09-20-2024 Albumin [Mass/Vol] 4.5 g/dL Normal 3.4-4.8 [facility] Comment on above: Performed By: #### L 500.4050, L501.2450, L100.0100 #### [facility] [address] [place], [address] Albumin/Globulin [Mass ratio] 1.6 {ratio} Normal 0.9-2.4 [facility] Comment on above: Performed By: #### L 500.4050, L501.2450, L100.0100 #### [facility] [address] [place], [address] ALK PHOS 103 U/L Normal 40-129 [facility] Comment on above: Performed By: #### L 500.4050, L501.2450, L100.0100 #### [facility] [address] [place], [address] ALT [Catalytic activity/Vol] 19 U/L Normal <=46 [facility] Comment on above: Performed By: #### L 500.4050, L501.2450, L100.0100 #### [facility] [address] [place], [address] AST [Catalytic activity/Vol] 28 U/L Normal <=37 [facility] Comment on above: Performed By: #### L 500.4050, L501.2450, L100.0100 #### [facility] [address] [place], [address] Bilirubin [Mass/Vol] 0.47 mg/dL Normal 0.00-1.30 [facility] Comment on above: Performed By: #### L 500.4050, L501.2450, L100.0100 #### [facility] [address] [place], [address] BUN/CRE 13.6 RATIO Normal 10-20 [facility] Comment on above: Performed By: #### L 500.4050, L501.2450, L100.0100 #### [facility] [address] [place], [address] Calcium [Mass/Vol] 8.9 mg/dL Normal 7.6-11.0 [facility] Comment on above: Performed By: #### L 500.4050, L501.2450, L100.0100 #### [facility] [address] [place], [address] Chloride [Moles/Vol] 106 mmol/L Normal 98-108 [facility] Comment on above: Performed By: #### L 500.4050, L501.2450, L100.0100 #### [facility] [address] [place], [address] CO2 [Moles/Vol] 23.3 mmol/L Normal 21.0-32.0 [facility] Comment on above: Performed By: #### L 500.4050, L501.2450, L100.0100 #### [facility] [address] [place], [address] Creatinine [Mass/Vol] 1.64 mg/dL High 0.70-1.20 [facility] Comment on above: Performed By: #### L 500.4050, L501.2450, L100.0100 #### [facility] [address] [place], [address] ECRCL 44.22 ml/min Low 50-250 [facility] Comment on above: Performed By: #### L 500.4050, L501.2450, L100.0100 #### [facility] [address] [place], [address] GAP 12 Normal 5-15 [facility] Comment on above: Performed By: #### L 500.4050, L501.2450, L100.0100 #### [facility] [address] [place], [address] GFR/1.73 sq M.predicted among non-blacks MDRD (S/P/Bld) [Vol rate/Area] 42 mL/min/{1.73_m2} Low >60 [facility] Comment on above: Result Comment: mL/m in/1.73m2 CKD-EPI Creatinine Equation (2020) Performed By: #### L 500.4050, L501.2450, L100.0100 #### [facility] [address] [place], [place], [address] Globulin (S) [Mass/Vol] 2.9 g/dL Normal 2.2-4.2 [facility] Comment on above: Performed By: #### L 500.4050, L501.2450, L100.0100 #### [facility] [address] [place], [address] Glucose [Mass/Vol] 112 mg/dL High 70-99 [facility] Comment on above: Performed By: #### L 500.4050, L501.2450, L100.0100 #### [facility] [address] [place], [address] Potassium [Moles/Vol] 4.6 mmol/L Normal 3.3-5.1 [facility] Comment on above: Performed By: #### L 500.4050, L501.2450, L100.0100 #### [facility] [address] [place], [address] Sodium [Moles/Vol] 142 mmol/L Normal 133-145 [facility] Comment on above: Performed By: #### L 500.4050, L501.2450, L100.0100 #### [facility] [address] [place], [address] T PROT 7.4 g/dL Normal 5.9-8.4 [facility] Comment on above: Performed By: #### L 500.4050, L501.2450, L100.0100 #### [facility] [address] [place], [address] Urea nitrogen [Mass/Vol] 22 mg/dL High 4-19 [facility] Comment on above: Performed By: #### L 500.4050, L501.2450, L100.0100 #### [facility] [address] [place], [address] Echo Completeon 09-20-2024 Echo Complete [facility] [address] [place] [address] Echo Complete 09/21/24 1452 MR#: [id number] Acct: [id number] Name: ITZEL GOMEZ Rep #: [id number] : 1945 79 From: Wilbert Garcia MD Attending Dr: Dr. Rebecca Lima, DO Status: ADM I N Ordering Dr: Linda Falcon MD Date: 09/20/24 Location: PCU Sex: M C Admitted: 09/21/24 Reason For Study Reason For Study: TIA/CVA Procedure This was a 2D Doppler, Color Flow transthoracic echocardiogram. Exam performed portable in patient room. Left Ventricle Normal LV size. Mild concentric left ventricular hypertrophy. Left ventricular systolic function is normal. The left ventricular ejection fraction is 60 %. Stage 1 diastolic dysfunction. No regional wall motion abnormalities noted. Right Ventricle Normal RV size. Normal systolic function. Atria Normal left atrium. Normal right atrium. Mitral Valve Bileaflet diffuse mitral valve thickening. Mild (1+) eccentric mitral valve insufficiency. Tricuspid Valve Normal tricuspid valve. Mild (1+) tricuspid valve insufficiency. Pulmonary artery systolic pressure is 25 mmHg. Aortic Valve Trisinus/trileaflet aortic valve. Mild focal aortic valve calcification. Mild (1+) aortic valve insufficiency. Pulmonic Valve Normal pulmonic valve. Great Vessels Mildly calcified aortic root. The pulmonary artery is normal size. Inferior vena cava collapse with respiration. Pericardium/Pleural No pericardial effusion. MMode/2D Measurements Calculations LVIDd: 4.1 cm IVSd: 1.3 cm LVOT diam: 2.1 cm LVIDs: 2.6 cm LVPWd: 1.2 cm LVOT area: 3.6 cm2 RVDd: 3.6 cm FS: 36.3 % LAV(MOD-bp): 37.9 ml LVAd ap4: 29.2 cm2 LVAd ap2: 27.4 cm2 LAV(MOD-bp) Indexed: 19.2 ml/m2 LVLd ap4: 9.1 cm LVLd ap2: 8.5 cm LAV(MOD-sp2): 39.5 ml EDV(MOD-sp4): 76.5 ml EDV(MOD-sp2): 72.8 ml LAV(MOD-sp4): 32.7 ml EDV(sp4-el): 79.5 ml EDV(sp2-el): 74.4 ml LVAs ap4: 14.8 cm2 LVAs ap2: 15.1 cm2 LVLs ap4: 7.7 cm LVLs ap2: 7.0 cm ESV(MOD-sp4): 24.7 ml ESV(MOD-sp2): 28.4 ml ESV(sp4-el): 24.2 ml ESV(sp2-el): 27.8 ml EF(MOD-sp4): 67.7 % EF(MOD-sp2): 60.9 % EF(sp4-el): 69.6 % SV(MOD-sp4): 51.8 ml SV(MOD-sp2): 44.3 ml SV(sp4-el): 55.3 ml SI(MOD-sp4): 26.3 ml/m2 SI(MOD-sp2): 22.5 ml/m2 Ao sinus diam: 3.[address] Junction: 3.0 cm LA A4 area: 12.5 cm2 LA dimension(2D): 4.2 cm TAPSE: 2.1 cm RA A4 area: 8.6 cm2 Time Measurements MV dec time: 0.26 sec Doppler Measurements Calculations MV E max marycarmen: 77.5 cm/sec Lat Peak E' Marycarmen: 9.0 cm/sec Med Peak E' Marycarmen: 8.2 cm/sec MV A max marycarmen: 83.7 cm/sec E/E' lat: 8.6 E/E' med: 9.4 MV E/A: 0.93 MV dec slope: 301.0 cm/sec2 Ao V2 max: 122.5 cm/sec AI max marycarmen: 357.9 cm/sec Ao max P.0 mmHg AI max P.2 mmHg Ao V2 mean: 82.0 cm/sec AI dec slope: 111.3 cm/sec2 Ao mean P.0 mmHg AI P1/2t: 941.6 msec Ao V2 VTI: 28.8 cm AV (velocity ratio): 0.85 LILIAM(I,D): 3.0 cm2 LILIAM(V,D): 2.6 cm2 LV V1 max: 88.1 cm/sec SV(LVOT): 87.0 ml PA V2 max: 104.2 cm/sec LV V1 max P.1 mmHg LV V1 mean P.7 mmHg LV V1 mean: 60.8 cm/sec LV V1 VTI: 24.5 cm TR max marycarmen: 239.2 cm/sec TR max P.9 mmHg ECHO/Echo Complete Interpretation Summary Normal LV size. Mild concentric left ventricular hypertrophy. Left ventricular systolic function is normal. The left ventricular ejection fraction is 60 %. Stage 1 diastolic dysfunction. Ordering Physician: Linda Falcon Referring Physician: [facility] Performed By: Letha Elias RDCS 09/21/24 1634 Date Wilbert Garcia MD CC: Dr. Linda Falcon MD; Dr. Rebecca Lima DO; [facility] Date Dictated: 09/21/24 1452 Date Transcribed: 09/21/24 1634 Bathing Suit Maker: Signed Normal [facility] Emergency Department Summary on 09-20-2024 Emergency Department Summary [facility] Medical Records Department [address] [place] [address] Emergency Department Summary 09/20/24 MR#: [id number] Acct: [id number] Name: ITZEL GOMEZ Rep #: [id number] : 1945 79 From: René Silva DO PCP: [facility] Status:ADM KESHAV Location: [address] History of Present Illness Chief Complaint: Nausea/Vomiting Narrative Narrative: Patient is a 79-year-old male with past medical history of carcinoid tumor, CVA, hypertension, anxiety, depression who presents to the emergency department chief complaint dizziness nausea vomiting. According to the patient he went to bed around midnight last night with felt his normal self he states that he woke up this morning he stood up and was dizzy and states that he felt like he was spinning. He states he had difficulty walking to the bathroom he had to hold onto the side of the wall as well as his cane. He states he did fall but denies hitting his head he states that he is not on any blood thinning medications. Patient states that since his symptoms are getting better he came here for further evaluation management. [facility] Medical History Bilateral pneumonia History of COVID-19 Anxiety and depression Cancer Former smoker Hypertension Stroke/cerebrovascular accident Multiple metastatic carcinoid tumors Home Medications ???Medication ???Instructions ???Recorded ???Last Taken ???Type amlodipine 10 mg tablet 10 mg PO DAILY 90 days #90 tabs 09/20/24 Rx loratadine 10 mg tablet 10 mg PO DAILY ALLERGIES 09/21/21 09/20/21 History aspirin 81 mg tablet 81 mg PO DAILY 09/20/24 09/20/24 H istory colestipol 1 gram tablet 1 g PO BID 09/20/24 09/20/24 Histo ry escitalopram oxalate 10 mg tablet 10 mg PO DAILY 09/20/24 09/20/24 History levothyroxine 25 mcg tablet 25 mcg PO DAILY 09/20/24 09/19/24 History (Levo-T) loperamide 2 mg tablet (Diamode) 4 mg PO BID 09/20/24 09/20/24 Hist ory octreotide acetate 30 mg IM Q28D 09/20/24 Unknown His tory oxycodone-acetaminophe n 5 mg-325 1 tab PO Q6H PRN pain 09/20/24 History mg tablet potassium chloride 20 mEq 20 meq PO DAILY 09/20/24 09/20/24 History tablet,extended release telotristat ethyl 250 mg tablet 250 mg PO TID 09/20/24 09/20/24 Hi story (Xermelo) Allergy/AdvReac Type Severity Reaction Status Date / Time amoxicillin Allergy Rash Verified 09/20/24 13:53 codeine AdvReac Nausea Verified 09/20/24 13:53 Family History Mother Heart disease Myocardial infarction CAD (coronary artery disease) Father COPD (chronic obstructive pulmonary disease) Surgical History H/O resection of small bowel S/P colectomy History of appendectomy History of cholecystectomy Social History household members: spouse Smoking Status: Never smoker how long ago did patient quit smoking: Patient smoked in the only and quit remotely. 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 this is not new Cardiovascular: Denies chest pain or palpitations Respiratory: Denies coughing wheezing shortness of breath Abdomen: Complains of nausea vomiting as noted above denies abdominal pain : Denies any urinary symptoms Neurological: Complains of difficulty walking as noted above secondary to dizziness denies any tingling Musculoskeletal: Denies back pain Skin: Denies any rashes or lesions EXAM Physical Exam Narrative Exam Narrative: General: Patient lying in bed rest comfortably did not appear to be in acute distress Head: Atraumatic, normocephalic Eyes: PERRL bilaterally, EOMI bilaterally, no conjunctival injection noted Neck: Soft, supple, trachea midline Cardiovascular: Patient bradycardic with a regular rhythm no murmurs gallops rubs noted m Respiratory: Clear to auscultation bilaterally Abdomen: Soft, nondistended, nontender to palpation Extremities: +4/5 strength noted in the bilateral upper and lower extremities, radial pulses +2/4 in the bilateral extremities Neurological: Patient follow commands knew that he was at [facility] year is 2024. NIH is 0 GCS 15 Skin: Warm, dry, tact no rashes or lesions noted Const Vital Signs: 09/20/24 13:54 09/20/24 14:15 09/20/24 14:39 Temperature 97.6 F L Temperature Source Oral Pulse Rate 57 L 61 Respiratory Rate 14 16 Blood Pressure 191/93 H 174/77 H (more content not included)... Normal [facility] Eosinophil percentageOrdered By: René Silva on 09-20-2024 Eosinophils/100 WBC (Bld) 0.1 % 0-5 [facility] Erythrocyte distribution wid th ratioOrdered By: René Silva on 09-20-2024 Erythrocyte distribution width (RBC) [Ratio] 13.3 % 11.6-14.6 [facility] Erythrocyte distribution wid th standard deviationOrdered By: René Silva on 09-20-2024 Erythrocyte distribution width (RBC) [Ratio] 46.4 fl High 35.1-43.9 [facility] Glomerular filtration rate ( GFR) estimation/1.73 sq m using serum, plasma, or whole bOrdered By: René Silva on 09-20-2024 GFR/1.73 sq M.predicted among non-blacks MDRD (S/P/Bld) [Vol rate/Area] 42 mL/min/{1.73_m2} Low >60 [facility] Comment on above: mL/min/1.73m2 CKD-EP I Creatinine Equation (2020) [facility] deOrdered By: René Silva on 09-20-2024 Glucose [Mass/Vol] 96 mg/dL 74-106 [facility] Comment on above: MANAGEMENT OF PATIEN T CARE PER NURSING PROTOCOL H AND P Exam - Hospitaliston 09-20-2024 H&P Exam - Hospitalist [facility] Medical Records Department [address] [place] [address] H P Exam - Hospitalist 09/20/24 1807 MR#: [id number] Acct: [id number] Name: ITZEL GOMEZ Rep #: [id number] : 1945 79 From: Linda Falcon MD PCP: [facility] Status:ADM KESHAV Location: [place] [address] HPI - General General Date of Admission: 09/20/24 Date of Service: 09/20/24 Chief Complaint: Falls, LH/Dizziness, N/V. 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 He also reports since onset a generalized headache on the top of his head described as pressure-like sensation rated 4 out of 10 in severity with no light or sound sensitivity. He notes that currently seated in the ED his nausea and emesis are completely abated but when he attempts to move at all and get up he does not know which way is up or down and has onset of nausea with bouts of emesis. In the ED NIHSS assessment 0. Workup in the ED included T97.6, heart rate 57, BP 191/93, respiratory rate 14, 96% on room air, CBC with WBC 15.2, hemoglobin 15.8, platelet 213 with left shift and lymphopenia, CBC with WBC 15.2, hemoglobin 15.8, platelet 213 with left shift and lymphopenia, unremarkable coags, CMP with BUN/2021/.64, GFR 42, glucose 112, hepatic profile not marked appearing, troponin 60 with repeat delta troponin 56, CT head with small vessel ischemic/degenerative changes with no acute intracranial findings with generalized brain atrophy, CTA head and neck with mild scattered atherosclerotic calcifications of the anterior and posterior intracranial extracranial circulation without any hemodynamically significant stenosis, CT abdomen and pelvis with IV contrast nonspecific lobulated isodense lesions in the pelvis measuring up to 3.4 cm likely consistent with his metastatic carcinoid tumors, mild esophageal hiatal hernia, some fecal retention in the colon consistent with constipation, colonic diverticulosis without acute diverticulitis, chest x-ray with no acute cardiopulmonary findings, EKG with sinus bradycardia with no acute evidence of. In the ED patient ministered 2 L normal saline, Zofran 4 mg IV x 1, tetanus update and full-strength aspirin therapy. ED discussed case also with on-call neurologist with stroke alert who recommended continued neurological evaluation to be cautious. [facility] Medical History Bilateral pneumonia History of COVID-19 Anxiety and depression Cancer Former smoker Hypertension Stroke/cerebrovascular accident Multiple metastatic carcinoid tumors Home Medications ???Medication ???Instructions ???Recorded ???Last Taken ???Type amlodipine 10 mg tablet 10 mg PO DAILY 90 days #90 tabs 09/20/24 Rx loratadine 10 mg tablet 10 mg PO DAILY ALLERGIES 09/21/21 09/20/21 History aspirin 81 mg tablet 81 mg PO DAILY 09/20/24 09/20/24 H istory colestipol 1 gram tablet 1 g PO BID 09/20/24 09/20/24 Histo ry escitalopram oxalate 10 mg tablet 10 mg PO DAILY 09/20/24 09/20/24 History levothyroxine 25 mcg tablet 25 mcg PO DAILY 09/20/24 09/19/24 History (Levo-T) loperamide 2 mg tablet (Diamode) 4 mg PO BID 09/20/24 09/20/24 Hist ory octreotide acetate 30 mg IM Q28D 09/20/24 Unknown His tory oxycodone-acetaminophe n 5 mg-325 1 tab PO Q6H PRN pain 09/20/24 History mg tablet potassium chloride 20 mEq 20 meq PO DAILY 09/20/24 09/20/24 History tablet,extended release telotristat ethyl 250 mg tablet 250 mg PO TID 09/20/24 09/20/24 Hi story (Xermelo) Allergy/AdvReac Type Severity Reaction Status Date / Time amoxicillin Allergy Rash Verified 09/20/24 13:53 codeine AdvReac Nausea Verified 09/20/24 13:53 Family History Mother Heart disease Myocardial infarction CAD (coronary artery disease) Father COPD (chronic obstructive pulmonary disease) Surgical History H/O resection of small bowel S/P colectomy History of appendectomy History of cholecystectomy Social History household members: spouse Smoking Status: Never smoker how long ago did patient quit smoking: Patient smoked in the only and quit remotely. alcohol intake: never substance use type: does not use ROS ROS Narrative Admis (more content not included)... Normal [facility] Hematocrit Auto (Bld) [Volum e fraction]Ordered By: René Silva on 09-20-2024 Hematocrit (Bld) [Volume fraction] 47.0 % 40-54 [facility] Hemoglobin measurementOrdere d By: René Silva on 09-20-2024 Hemoglobin (Bld) [Mass/Vol] 15.8 g/dL 13.0-16.5 [facility] Immature granulocytes/100 WB C Auto (Bld)Ordered By: René Silva on 09-20-2024 Immature granulocytes/100 WBC (Bld) 0.500 % 0.0-0.9 [facility] Comment on above: IG% - Immature Granu locytes (promyelocytes, myelocytes and metamyelocytes) > 1% indicates that a LEFT SHIFT is Present. International normalized rat io (INR) calculationOrdered By: René Silva on 09-20-2024 INR Coag (Bld) [Relative time] 1.0 {INR} [facility] Ketones Test strip Ql (U)Ord ered By: René Silva on 09-20-2024 Ketones Ql (U) Negative Negative [facility] L499.0042on 09-20-2024 Trop T High Sen 56 ng/L Invalid Interpretation Code <=22 [facility] Comment on above: Result Comment: Crit ical Result(s) Called at: 09/20/2024-16:43 by: Rafael Falcon to Shila Blandon.??Results read back by same. Performed By: #### L 499.0042 #### [facility] [address] [place], [address] L499.0043on 09-20-2024 Trop T High Sen 58 ng/L Invalid Interpretation Code <=22 [facility] Comment on above: Result Comment: Crit ical Result(s) Called at: 09/20/2024-21:03 by: Bonita Barraza.??Results read back by same. Performed By: #### L 499.0043 #### [facility] [address] [place], [place], [address] Trop T High Sen Normal <=22 [facility] Comment on above: Result Comment: Hever baer via OM: Ordered Performed By: #### L 499.0043 #### [facility] [address] [place], [address] L501.4021on 09-20-2024 Trop T High Sen 60 ng/L Invalid Interpretation Code <=22 [facility] Comment on above: Result Comment: Crit ical Result(s) Called at: 09/20/2024-14:41 by: Rafael Falcon to Shila Blandon??Results read back by same. Performed By: #### L 499.0042 #### [facility] [address] [place], [place], [address] Laboratory - Chemistry and C hemistry - challengeOrdered By: René Silva on 09-20-2024 AST [Catalytic activity/Vol] 28 U/L <38 [facility] Lipaseon 09-20-2024 Lipase [Catalytic activity/Vol] 23 U/L Normal 13-75 [facility] Comment on above: Result Comment: Plea se note: LIPASE revised reference range effective 22. New Lipase methodology. Expected to produce lower values than the previous assay method. NEW Reference Range: 13 - 75 U/L Performed By: #### L 500.4050, L501.2450, L100.0100 #### [facility] [address] [place], [place], [address] Lipase measurementOrdered By : René Silva on 09-20-2024 Lipase [Catalytic activity/Vol] 23 U/L 13-75 [facility] Comment on above: Please note:LIPASE r evised reference range effective 22. New Lipase methodology. Expected to produce lower values than the previous assay method. NEW Reference Range: 13 - 75 U/L MCV (mean corpuscular volume ) determinationOrdered By: René Silva on 09-20-2024 MCV (RBC) [Entitic vol] 94.2 fL High 80-94 [facility] Magnesiumon 09-20-2024 Magnesium [Mass/Vol] 1.6 mg/dL Normal 1.5-2.2 [facility] Comment on above: Order Comment: Comme nts: May add to ED labsComments: may add to ED labs Performed By: #### L 499.0042 #### [facility] [address] [place], [place], [address] Mean corpuscular hemoglobin (MCH) determinationOrdered By: René Silva on 09-20-2024 MCH (RBC) [Entitic mass] 31.7 pg 27.0-32.0 [facility] Mean corpuscular hemoglobin concentration (MCHC) determinationOrdered By: René Silva on 09-20-2024 MCHC (RBC) [Mass/Vol] 33.6 g/dL 32-36 [facility] Mean platelet volume determi nationOrdered By: René Silva on 09-20-2024 Platelet mean volume (Bld) [Entitic vol] 8.9 fL 6.2-12.0 [facility] Microscopic analysis of urin e for red blood cells (RBC)Ordered By: René Silva on 09-20-2024 Microscopic analysis of urine for red blood cells (RBC) 0 SEEN /hpf 0-5 [facility] Monocyte percentageOrdered B y: René Silva on 09-20-2024 Monocytes/100 WBC (Bld) 3.2 % 0-10 [facility] Mucus LM Ql (Urine sed)Order ed By: René Silva on 09-20-2024 Mucus Ql (Urine sed) 0 SEEN /hpf [facility] Neutrophil percentageOrdered By: René Silva on 09-20-2024 Neutrophils/100 WBC (Bld) 92.9 % High 47-70 [facility] Nitrite Test strip Ql (U)Ord ered By: René Silva on 09-20-2024 Nitrite Ql (U) Negative Negative [facility] Nucleated red blood cell per centageOrdered By: René Silva on 09-20-2024 Nucleated RBC/100 WBC (Bld) [Ratio] 0 % 0-5 [facility] Partial Thromboplast Timeon 09-20-2024 aPTT Coag (Bld) [Time] 27.0 s Normal 24.1-36.2 [facility] Comment on above: Performed By: #### L 499.0042 #### [facility] [address] [place], [address] Phosphoruson 09-20-2024 Phosphate [Mass/Vol] 2.7 mg/dL Normal 2.7-4.5 [facility] Comment on above: Order Comment: Comme nts: May add to ED labsComments: may add to ED labs Performed By: #### L 499.0042 #### [facility] [address] [place], [address] Platelet countOrdered By: Daniel Silva on 09-20-2024 Platelets (Bld) [#/Vol] 213 10*3/uL 150-450 [facility] Potassium measurement (mass/ volume)Ordered By: René Silva on 09-20-2024 Potassium (Unsp spec) [Mass/Vol] 4.6 mmol/L 3.3-5.1 [facility] Protein Test strip Ql (U)Ord ered By: René Silva on 09-20-2024 Protein Ql (U) 30 mg/dl High Negative [facility] Prothrombin Time w/INRon INR Coag (PPP) [Relative time] 1.0 {INR} Normal [facility] Comment on above: Performed By: #### L 499.0042 #### [facility] [address] [place], [place], [address] PT Coag (PPP) [Time] 13.2 s Normal 11.7-14.9 [facility] Comment on above: Performed By: #### L 499.0042 #### [facility] [address] [place], [address] (053) Prothrombin timeOrdered By: René Silva on 09-20-2024 PT Coag (PPP) [Time] 13.2 s 11.7-14.9 [facility] RBC Auto (Bld) [#/Vol]Ordere d By: René Silva on 09-20-2024 RBC (Bld) [#/Vol] 4.99 10*6/uL 4.6-6.2 [facility] STROKE Brain/Head without Co nton 09-20-2024 STROKE Brain/Head without Cont [facility] Imaging Services [address] [place] [address] STROKE Brain/Head without Cont MR#: [id number] Acct: [id number] Name: ITZEL GOMEZ Rep #: [id number] : 1945 M 79 From: Tee Hagan MD PCP: [facility] Status: [facility] Study: STROKE Brain/Head without Cont Date of Exam: 0 09/20/24 Exam# [id number] Ordering Dr: René Silva DO EXAM: CT Head Without Intravenous Contrast CLINICAL INDICATION: NEURO DEFICIT, ACUTE, STROKE SUSPECTED TECHNIQUE: Axial computed tomography images of the head/brain without intravenous contrast. This CT exam was performed using one or more of the following dose reduction techniques: automated exposure control, adjustment of the mA and/or kV according to patient size, and/or use of iterative reconstruction technique. COMPARISON: No relevant prior studies available. FINDINGS: BRAIN AND EXTRA-AXIAL SPACES: Areas of decreased attenuation in the deep cerebral white matter are consistent with small vessel ischemic/degenerative changes. No acute intracranial hemorrhage, midline shift or mass effect. If symptoms persist, further evaluation with MRI is recommended. The cerebral and cerebellar sulci are prominent consistent with brain atrophy. BONES/JOINTS: Unremarkable. No acute fracture. SOFT TISSUES: Unremarkable. SINUSES: Unremarkable as visualized. No acute sinusitis. MASTOID AIR CELLS: Unremarkable as visualized. No mastoid effusion. CT/STROKE Brain/Head without Cont IMPRESSION: 1. Small vessel ischemic/degenerative changes. 2. No acute intracranial hemorrhage, midline shift or mass effect. If symptoms persist, further evaluation with MRI is recommended. 3. Generalized brain atrophy. Reading Location: [facility] CC: Dr. René Silva DO; [facility] Bathing Suit Maker: Signed Normal [facility] STROKE CTA Head AND Neck W/C onon 09-20-2024 STROKE CTA Head AND Neck W/Con [facility] Imaging Services [address] [place] [address] [id number] STROKE CTA Head AND Neck W/Con MR#: [id number] Acct: [id number] Name: ITZEL GOMEZ Rep #: [id number] : 1945 M 79 From: Navarro nolan MD PCP: [facility] Status: REG ER Study: STROKE CTA Head AND Neck W/Con Date of Exam: 0 09/20/24 Exam# [id number] Ordering Dr: René Silva DO PROCEDURE: STROKE CTA HEAD AND NECK W/CON 09/20/2024 REASON FOR EXAM: NEURO DEFICIT, ACUTE, STROKE SUSPECTED TECHNIQUE: CTA imaging of the head and neck from the aortic arch to the skull vertex with out contrast and with intravenous contrast. Multiplanar and multisequence images were obtained. CONTRAST: Omnipaque 350 VOLUME: 100 mL Not Provided Gauge IV One or more dose reduction techniques were used (e.g., Automated exposure control, adjustment of the mA and/or kV according to patient size, use of iterative reconstruction technique). COMPARISON: None FINDINGS: Aortic Arch: Normal size and branching pattern. No significant atherosclerotic plaque. Brachiocephalic and Subclavians: Mild atherosclerotic plaque without significant stenosis. RIGHT Carotid: Right CCA: Mild calcified and soft plaque. Right ICA: Unremarkable. Maximum stenosis (NASCET): 0 % Right ECA: Unremarkable. LEFT Carotid: Left CCA: Mild calcified and soft plaque. Left ICA: Unremarkable. Maximum stenosis (NASCET): 0 % Left ECA: Unremarkable. Vertebrals: Codominant. Arise from the subclavians. Both vertebrals form the basilar. RIGHT Vertebral: Unremarkable. LEFT Vertebral: Unremarkable. Anatomy: Augustine of Joaquin anatomy is normal. Aneurysm or avm: No intracranial aneurysms or large vascular malformations are identified. Anterior cerebral arteries: Unremarkable: Middle cerebral arteries: Mild atherosclerotic calcification of the bilateral carotid siphons without hemodynamically significant stenosis. The bilateral MCAs are otherwise within normal limits. Basilar artery: Unremarkable. Posterior cerebral arteries: Unremarkable. Other major branches of the posterior circulation: Unremarkable. Major venous structures: Unremarkable. Other findings: Neck: No lymphadenopathy. Lungs: Lung apices are clear. Bones: CT/STROKE CTA Head AND Neck W/Con IMPRESSION: Mild scattered atherosclerotic calcification of the anterior and posterior intracranial and extracranial circulation without hemodynamically significant stenosis. [facility] CC: Dr. René Silva DO; [facility] Bathing Suit Maker: Signed Normal [facility] Serum creatinine measurement (mass/volume)Ordered By: René Silva on 09-20-2024 Creatinine [Mass/Vol] 1.64 mg/dL High 0.70-1.20 [facility] Serum globulin measurementOr dered By: René Silva on 09-20-2024 Globulin (S) [Mass/Vol] 2.9 g/dL 2.2-4.2 [facility] Serum glucose measurement (m ass/volume)Ordered By: René Silva on 09-20-2024 Glucose [Mass/Vol] 112 mg/dL High 70-99 [facility] Serum or plasma alanine hilton otransferase (ALT) measurementOrdered By: René Silva on 09-20-2024 ALT [Catalytic activity/Vol] 19 U/L <47 [facility] Serum or plasma albumin sammy urement (mass/volume)Ordered By: René Silva on 09-20-2024 Albumin [Mass/Vol] 4.5 g/dL 3.4-4.8 [facility] Serum or plasma albumin/glob ulin mass ratioOrdered By: René Silva on 09-20-2024 Albumin/Globulin [Mass ratio] 1.6 {ratio} 0.9-2.4 [facility] Serum or plasma alkaline miguelangel sphatase measurementOrdered By: René Silva on 09-20-2024 ALP [Catalytic activity/Vol] 103 U/L 40-129 [facility] Serum or plasma calcium sammy urement (mass/volume)Ordered By: René Silva on 09-20-2024 Calcium [Mass/Vol] 8.9 mg/dL 7.6-11.0 [facility] Serum or plasma urea nitroge n measurement (mass/volume)Ordered By: René Silva on 09-20-2024 Urea nitrogen [Mass/Vol] 22 mg/dL High 4-19 [facility] Sodium levelOrdered By: Mio Silva on 09-20-2024 Sodium [Moles/Vol] 142 mmol/L 133-145 [facility] Squamous epithelial cells de tection in urine sediment by light microscopyOrdered By: René Silva on 09-20-2024 Epithelial cells.squamous LM Ql (Urine sed) 0 SEEN /hpf 0-5 [facility] Total proteinOrdered By: Benedict Silva on 09-20-2024 Protein [Mass/Vol] 7.4 g/dL 5.9-8.4 [facility] Troponin T.cardiac [Mass/vol ume] in Serum or Plasma by High sensitivity methodOrdered By: Linda Falcon on 09-20-2024 Troponin T.cardiac High sensitivity method [Mass/Vol] 58 ng/L High <22 [facility] Comment on above: Critical Result(s) C alled at: 09/20/2024-21:03 by: Bonita Barraza. Results read back by same. Troponin T.cardiac [Mass/vol ume] in Serum or Plasma by High sensitivity methodOrdered By: René Silva on 09-20-2024 Troponin T.cardiac High sensitivity method [Mass/Vol] 56 ng/L High <22 [facility] Comment on above: Critical Result(s) C alled at: 09/20/2024-16:43 by: Rafael Falcon to Shila Blandon. Results read back by same. Troponin T.cardiac High sensitivity method [Mass/Vol] 60 ng/L High <22 [facility] Comment on above: Critical Result(s) C alled at: 09/20/2024-14:41 by: Rafael Falcon to Shila Blandon Results read back by same. Urinalysis, Completeon 09-20 CA OX CRYSTAL RARE Normal [facility] Comment on above: Order Comment: CLEAN CATCH Performed By: #### L 499.0042 #### [facility] [address] [place], [address] CAST,FINE GRAN 0-5 SEEN Normal 0-5 [facility] Comment on above: Order Comment: CLEAN CATCH Performed By: #### L 499.0042 #### [facility] [address] [place], [address] BACTERIA 0 SEEN Normal None Seen [facility] Comment on above: Order Comment: CLEAN CATCH Performed By: #### L 499.0042 #### [facility] [address] [place], [address] EPI,SQUAMOUS 0 SEEN Normal 0-5 [facility] Comment on above: Order Comment: CLEAN CATCH Performed By: #### L 499.0042 #### [facility] [address] [place], [address] Mucus Ql (Urine sed) 0 SEEN Normal [facility] Comment on above: Order Comment: CLEAN CATCH Performed By: #### L 499.0042 #### [facility] [address] [place], [address] RBC 0 SEEN Normal 0-5 [facility] Comment on above: Order Comment: CLEAN CATCH Performed By: #### L 499.0042 #### [facility] [address] [place], [address] WBC 0 SEEN Normal 0-5 [facility] Comment on above: Order Comment: CLEAN CATCH Performed By: #### L 499.0042 #### [facility] [place], [address] Urine clarityOrdered By: Benedict Silva on 09-20-2024 Clarity (U) Clear Clear [facility] Urine color determinationOrd ered By: René Silva on 09-20-2024 Color (U) Straw Yellow [facility] Urine glucose detectionOrder ed By: René Silva on 09-20-2024 Glucose Ql (U) Normal mg/dl Normal [facility] Urine leukocyte esterase det ection by dipstickOrdered By: René Silva on 09-20-2024 Leukocyte esterase Test strip Ql (U) Negative Negative [facility] Urine pHOrdered By: René cuevas on 09-20-2024 pH (U) 6.0 [pH] 5.0 - 8.0 [facility] Urine sediment bacteria coun t by microscopy (number/high power field)Ordered By: René Silva on 09-20-2024 Bacteria LM.HPF (Urine sed) [#/Area] 0 /[HPF] None Seen [facility] Urine sediment fine granular cast count by microscopy (number/low power field)Ordered By: René Silva on 09-20-2024 Fine Granular Casts LM.LPF (Urine sed) [#/Area] 0-5 SEEN /lpf 0-5 [facility] Urine specific gravity measu rementOrdered By: René Silva on 09-20-2024 Specific gravity (U) [Rel density] 1.015 1.002-1.030 [facility] Urine urobilinogen measureme ntOrdered By: René Silva on 09-20-2024 Urobilinogen Ql (U) Normal mg/dl Normal [facility] White blood cell (WBC) count Ordered By: René Silva on 09-20-2024 WBC (Bld) [#/Vol] 15.2 10*3/uL High 4.4-11.0 [facility] White blood cell countOrdere d By: René Silva on 09-20-2024 White blood cell count 0 SEEN /hpf 0-5 [facility] CNOVon 11-15-2022 CNOV Office Visit (GENSWS ) ITZEL GOMEZ ([id number]) 1945 Date Time Provider Department 11/15/22 11:00 AM ARIANNA MONTIEL During your visit today, we recorded the following information about you: Temperature Pulse Blood pressure Weight 97.3 degrees 68/minute 90/78 76.1 kg Arianna Montiel PA-C 11/16/2022 2:25 PM Signed FOLLOW UP VISIT - ENDOSCOPY NAME: Itzel Gomez CLINIC NO.: [id number] DATE OF SERVICE: 11/15/2022 : 1945 REFERRING PHYSICIAN: Miryam Hines, MAURICIO Itzel is a patient I am following for loose stools and 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 Dr. Villavicencio performed lower endoscopy on 11/08/22. The patient was found to have diverticulosis, normal appearing anastomosis, non-bleeding hemorrhoids. Pathology demonstrated: FINAL DIAGNOSIS A. Colon, biopsy: - Colonic mucosa with no diagnostic abnormality. B. Ileum, biopsy: - Small intestinal mucosa with no diagnostic abnormality. The patient notes no complaints since the procedure. VITALS: There were no vitals taken for this visit. General: patient is alert, cooperative, pleasant and in no acute distress On examination, the abdomen is benign. Assessment IMPRESSION: long-term history of loose stools, history of ileal resection and right hemicolectomy PLAN: The operative findings and pathology report were reviewed with the patient, and the patient has had the opportunity to ask questions and have questions answered. If the patient notes any problems or changes in bowel function, the patient should contact me immediately. Otherwise I recommend patient consider a 5 year repeat colonoscopy based on his history of ileal tumor. -Recommend daily fiber supplement (such as Citrucel, benefiber, metamucil etc) to help bulk up stools. Recommend powder formulation mixed into liquid, rather than the tablets or chews -If symptoms not improving on fiber after 1 month, consider trial of cholestyramine resin Patient verbalized understanding of all above and agreed with the plan Diagnoses: (R19.5) Loose stools (primary encounter diagnosis) (Z90.49) Status post partial resection of colon I spent a total of 24 minutes on the date of the service which included preparing to see the patient, [id number] patient care, completing clinical documentation, obtaining and/or reviewing separately obtained history, counseling and educating the patient/family/caregiv er, communicating with other HCPs (not separately reported), independently interpreting results (not separately reported), and communicating results to the patient/family/caregiv er. RIGO Plasencia PA-C 11/15/2022 10:57 AM Signed -Recommend daily fiber supplement (such as Citrucel, benefiber, metamucil etc) to help bulk up stools. Recommend powder formulation mixed into liquid, rather than the tablets or chews -If symptoms not improving on fiber after 1 month, consider trial of cholestyramine resin The following instructions are important for you related to your office visit today with the [facility] Surgeons. INSTRUCTIONS FOLLOWING A NORMAL COLONOSCOPY I discussed with you the findings of your colonoscopy. No worrisome abnormalities were noted, and random biopsies were negative for microscopic colitis. Recommend considering a repeat colonoscopy in 5 years based on your history of ileal tumor. If you note bleeding, change in bowel habits, or other suspicious colon related symptoms before that time, those symptoms should be evaluated as necessary. If you note any additional difficulties, questions, or concerns, you should contact our office immediately @ [phone] and ask to be transferred to the General Surgery department. Referring Provider: TROY VILLAVICENCIO [[id number]] Allergies As of Date: 11/15/2022 Noted Allergy Reaction AMOXICILLIN 03/17/2012 4 - Hives CODEINE 03/17/2012 8 - GI Upset DILAUDID (HYDROMORPHONE (BULK)) 03/17/2012 11 - Vomiting Comments: weakness Date Reviewed: 11/15/2022 Reviewed by: Arianna Montiel PA-C - Fully Assessed Reason for Visit: Follow Up [171] Cmt: colonoscopy Primary Visit Diagnosis:Loose stools [R19.5] Other Visit Diagnosis:Status post partial resection of colon [Z90.49] Prescriptions as of 11/16/2022 - ARIPiprazole (ABILIFY) 5 mg tablet Take 5 mg by mouth once daily. - colestipol (COLESTID) 1 gram tablet Take 1 g by mouth twice daily. - levothyroxine (SYNTHROID) 25 mcg tablet Take 25 mcg by mouth daily before breakfast. - container,empty (NASAL SPRAY BOTTLE MISC) - oxyCODONE ER (OXYCONTIN) 20 mg 12 hr tablet Take 20 mg by mouth every 12 hours. - loratadine 10 mg cap Take 10 mg by mouth once daily. - escitalopram oxalate (LEXAPRO) 10 mg tablet Take 10 mg by mouth once daily. - doxazosin (CARDURA) 4 mg (more content not included)... Normal [facility] SURGICAL PATHOLOGYon 023 Case Report Surgical Pathology Report Case: [id number] Authorizing Provider: Troy Villavicencio MD Collected: 11/08/2022 09:10 AM Ordering Location: Ambulatory Surgery Received: 11/08/2022 12:06 PM Pathologist: Del Gay MD Specimens: A) - COLON BIOPSY, RANDOM bx's of the colon B) - ILEUM BIOPSY [facility] FINAL DIAGNOSIS A. Colon, biopsy: - Colonic mucosa with no diagnostic abnormality. B. Ileum, biopsy: - Small intestinal mucosa with no diagnostic abnormality. [facility] Gross Description A. COLON BIOPSY Received in formalin are multiple pieces of oliver, soft tissue aggregating to 2.1 x 0.3 x 0.2 cm. Totally submitted in one cassette. B. ILEUM BIOPSY Received in formalin are two pieces of oliver, soft tissue aggregating to 0.9 x 0.2 x 0.2 cm. Totally submitted in one cassette. Gross examination performed at [facility], [facility] [place] [id number] November 08, 2022 8:57 PM [facility] Performing Lab Diagnostic interpretation performed at [facility], [facility] [place] [id number] CLIA# [id number] S[employer] Portal Consultant: Javed Stewart M.D. [facility] COLONOSCOPY DIAGNOSTICon [facility] Colonoscopyon 11-08-2022 Colonoscopy [place] [facility] Gastrointestinal Endoscopy Patient Name: Itzel Gomez Procedure Date: 11/08/2022 8:47 AM Date of : 1945 Admit Type: Outpatient Age: 77 Gender: Male Note Status: Finalized Procedure: Colonoscopy Indications: Clinically significant diarrhea of unexplained origin Providers: Troy Villavicencio MD Patient Profile: This is a 77 year old male. Refer to note in patient chart for documentation of history and physical. Last Colonoscopy: 2007. Referring Physician: Arianna Montiel (pa) (Referring ) Medicines: Fentanyl 50 micrograms IV, Midazolam 3 mg IV Complications: No immediate complications. Estimated blood loss: Minimal. Requesting Provider: Procedure: Pre-Anesthesia Assessment: - Prior to the procedure, a History and Physical was performed, and patient medications and allergies were reviewed. The patient's tolerance of previous anesthesia was also reviewed. The risks and benefits of the procedure and the sedation options and risks were discussed with the patient. All questions were answered, and informed consent was obtained. Prior Anticoagulants: The patient has taken no anticoagulant or antiplatelet agents. ASA Grade Assessment: III - A patient with severe systemic disease. After reviewing the risks and benefits, the patient was deemed in satisfactory condition to undergo the procedure. After I obtained informed consent, the scope was passed under direct vision. Throughout the procedure, the patient's blood pressure, pulse, and oxygen saturations were monitored continuously. The Colonoscope was introduced through the anus and advanced to the ileocolonic anastomosis. The colonoscopy was performed without difficulty. The patient tolerated the procedure well. The quality of the bowel preparation was adequate to identify polyps 6 mm and larger in size. The rectum and ileocolonic anastamosis were photographed. Moderate Sedation: The administration of moderate sedation was initiated at 08:59 AM. Moderate (conscious) sedation was personally administered by the endoscopist. The following parameters were monitored: oxygen saturation, heart rate, blood pressure, respiratory rate, EKG, adequacy of pulmonary ventilation, and response to care. Total physician intraservice time was 17 minutes. Findings: The perianal and digital rectal examinations were normal. The colon (entire examined portion) appeared normal. Biopsies for histology were taken with a cold forceps from the entire colon for evaluation of microscopic colitis. The anastomosis appeared normal. Biopsies were taken with a cold forceps for histology. Non-bleeding internal hemorrhoids were found during retroflexion. The hemorrhoids were moderate and medium-sized. Multiple small-mouthed diverticula were found in the sigmoid colon and descending colon. The exam was otherwise without abnormality. Impression: - The entire examined colon is normal. Biopsied. - The colonic anastomosis is normal. Biopsied. - Non-bleeding internal hemorrhoids. - Diverticulosis in the sigmoid colon and in the descending colon. - The examination was otherwise normal. Recommendation: - Patient has a contact number available for emergencies. The signs and symptoms of potential delayed complications were discussed with the patient. Return to normal activities tomorrow. Written discharge instructions were provided to the patient. - Resume previous diet. - Continue present medications. - Await pathology results. - Repeat colonoscopy in 10 years for screening purposes. - Return to physician accounting manager assistant controller in 1 week. Procedure Code(s): --- Professional --- 55005, Colonoscopy, flexible; with biopsy, single or multiple G0500, Moderate sedation services provided by the same physician or other qualified health career guidance counselor performing a gastrointestinal endoscopic service that sedation supports, requiring the presence of an independent trained observer to assist in the monitoring of the patient's level of consciousness and physiological status; initial 15 minutes of intra-service time; patient age 5 years or older (additional time may be reported with 40129, as appropriate) Diagnosis Code(s): --- Professional --- K64.8, Other hemorrhoids R19.7, Diarrhea, unspecified K57.30, Diverticulosis of large intestine without perforation or abscess without bleeding CPT copyright 2020 [employer]. All rights reserved. The codes documented in this report are preliminary and upon distribution district supervisor review may be revised to meet current compliance requirements. Attending Participation: I personally performed the entire procedure. Scope In: 9:01:27 AM Scope Out: 9:18:24 AM MD Troy Martin MD 11/08/2022 9:23:45 AM This report has been signed electronically by Troy Villavicencio MD Number of Addenda: 0 Note Initiated On: 11/08/2022 8:47 AM Estima (more content not included)... Normal [facility] HISTORY PHYSICALon 3 HISTORY PHYSICAL HNO ID: [id number] Author: Troy Villavicencio MD Service: General Surgery Author Type: Physician Type: HANDP Filed: 11/08/2022 8:23 AM Note Text: HISTORY AND PHYSICAL Itzel Gomez 1945 REFERRING PHYSICIAN: Juan, Mt CHIEF COMPLAINT: Consult (colonoscopy) HPI: The patient is a 77 year old male referred for endoscopy. Patient presented today [id number] was under the impression he was having his colonoscopy today. Itzel notes a history of loose stools for some time, which have been worsening over the last couple months. Describes stools as pudding-like in consistency. Occasionally some darker-appealing stools but no obvious blood. Per notes from the [place] patient was taking Xermelo previously which was helping, but no longer notes improvement with this. Denies nausea, vomiting, upper abdominal pain or changes in appetite. Patient is s/p bowel resection with right hemicolectomy for an ileal cancer, states this was done around 1835-0617. Records show carcinoid tumor with metastases. Itzel has not had recent endoscopy. Denies chest pain, shortness of breath or recent hospitalizations. Denies problems with sedation in the past. PAST MEDICAL HISTORY PAST MEDICAL HISTORY Diagnosis Date Balanitis 2017 Benign paroxysmal positional vertigo Carcinoid tumor 2016 Chronic depression 2017 DDD (degenerative disc disease), cervical Dysthymia 2019 Essential hypertension Essential hypertension Gall stones Hematuria 2019 Hypercholesteremia 2007 Optic neuropathy Rheumatic fever as child Secondary malignant neoplasm of liver (HCC) 2016 Sleep apnea Solitary pulmonary nodule present on computed tomography of lung 2008 Stroke (HCC) PAST SURGICAL HISTORY PAST SURGICAL HISTORY Procedure Laterality Date CHOLECYSTECTOMY 05/06/1990 COLON SURGERY HX 05/06/2008 appendix removed, cancer COLONOSCOPY SCREENING 2016 HERNIA REPAIR W/MESH 05/06/2009 TONSILLECTOMY HX age 4 CURRENT MEDICATIONS Current Outpatient Medications Medication Sig ARIPiprazole (ABILIFY) 5 mg tablet Take 5 mg by mouth once daily. colestipol (COLESTID) 1 gram tablet Take 1 g by mouth twice daily. levothyroxine (SYNTHROID) 25 mcg tablet Take 25 mcg by mouth daily before breakfast. container,empty (NASAL SPRAY BOTTLE MISC) loratadine 10 mg cap Take 10 mg by mouth once daily. escitalopram oxalate (LEXAPRO) 10 mg tablet Take 10 mg by mouth once daily. doxazosin (CARDURA) 4 mg tablet Take 4 mg by mouth daily at bedtime. chlorthalidone (HYGROTON) 25 mg tablet Take 25 mg by mouth once daily. amLODIPine (NORVASC) 5 mg tablet Take 5 mg by mouth once daily. telotristat ethyl 250 mg tab Take 250 mg by mouth three times daily. oxyCODONE immediate release 5 mg immediate release tablet Take 5 mg by mouth every 4 hours as needed. cholecalciferol (VITAMIN D3) 1,000 unit tab tablet Take 1,000 Units by mouth three times daily. FE/VIT B COMP/B12/LIVER/PROC ([id number] INTRAMUSC.) Inject intramuscularly. 1000 mcg monthly injection at home. OCTREOTIDE ACETATE (SANDOSTATIN INJECTION) by INJECTION(UNSPECIFIED PARENTERAL ROUTES) route. 20mg alternating with 30 mg month at home. oxyCODONE ER (OXYCONTIN) 20 mg 12 hr tablet Take 20 mg by mouth every 12 hours. (Patient not taking: Reported on 09/24/2022) No current facility-administered medications for this visit. ALLERGIES: Amoxicillin, Codeine, and Dilaudid [Hydromorphone (Bulk)] PERSONAL HISTORY: SOCIAL HISTORY Social History Tobacco Use Smoking status: Former Smokeless tobacco: Current Tobacco comments: Smoked pipe about 15 years Vaping Use Vaping Use: Never used Substance Use Topics Alcohol use: Yes Comment: rare beer Drug use: Never FAMILY HISTORY: FAMILY HISTORY FAMILY HISTORY Problem Relation Age of Onset Heart Mother MD Heart Father COPD Father REVIEW OF SYMPTOMS: The review of systems data was entered by the nurse and reviewed by me Nursing Notes: Pamella Harmon LPN 09/24/2022 9:14 AM Signed REVIEW OF SYSTEMS: General: The patient notes fatigue, notes weight loss, denies weight gain, denies feeling hot, and denies feelings of cold. Eyes: The patient denies glaucoma, denies eye injury/surgery, wears glasses or contacts. Ear/Nose/Throat: The patient notes allergies, denies hayfever, denies ear infections, and denies bloody noses. Cardiovascular: The patient denies chest pain, denies heart disease, notes high blood pressure,denies cardiac stent, denies prior heart attack, denies irregular heart beat, denies high cholesterol, denies poor circulation, denies heart failure, other cardiac issues, denies claudication, denies cold feet, denies peripheral arterial stent. Respiratory: The patient denies tuberculosis, denies pneumonia, denies frequent cough, denies pulmonary embolism, denies shortness of breath, and denies coughing up blood. Gastrointestinal: The patient denies difficulty (more content not included)... Normal [facility] NURSING PROGon 11-08-2022 NURSING PROG HNO ID: [id number] Author: Luzmaria Sidhu RN Service: ? Author Type: Registered Nurse Type: Nursing Progress Note Filed: 11/08/2022 9:56 AM Note Text: Patient awoke easily when spoken to, was offered a drink and snack, he declines, just wants to continue to sleep, Denies pain or nausea. Normal [facility] NURSING PROG HNO ID: [id number] Author: Luzmaria Sidhu RN Service: ? Author Type: Registered Nurse Type: Nursing Progress Note Filed: 11/08/2022 9:35 AM Note Text: Arrived in phase II via cart left lateral position, eyes closed but open to verbal stimuli, oriented to event and self, skin warm and dry, respirations regular and unlabored, abdomen soft and non distended. Resting comfortably on left side. Normal [facility] SURGICAL PATHOLOGYon 023 CASE REPORT Normal [facility] Comment on above: Order Comment: Speci men Type: TISSUE SPECIMEN Ordering Facility: [facility] Address: [address] [place] [address] Result Comment: Surg ica Pathology Report Case: [id number] Authorizing Provider: Troy Villavicencio MD Collected: 11/08/2022 09:10 AM Ordering Location: Ambulatory Surgery Received: 11/08/2022 12:06 PM Pathologist: Del Gay MD Specimens: A) - COLON BIOPSY, RANDOM bx's of the colon B) - ILEUM BIOPSY Performed By: #### S #### [facility] CLIA [id number] [address] [place], [place] [address]K [address] OF [facility] FINAL DIAGNOSIS Normal [facility] Comment on above: Order Comment: Speci men Type: TISSUE SPECIMEN Ordering Facility: [facility] Address: [address] [place] [id number] Result Comment: A. C olon, biopsy: - Colonic mucosa with no diagnostic abnormality. B. Ileum, biopsy: - Small intestinal mucosa with no diagnostic abnormality. Performed By: #### S #### [facility] CLIA [id number] [address] [place] [address] OF [facility] FINAL PERFORMING LAB Normal [facility] Comment on above: Order Comment: Speci men Type: TISSUE SPECIMEN Ordering Facility: [facility] Address: [address] [place] [address] Result Comment: Diag nostic interpretation performed at [facility], [address] [place] [address] CLIA# [id number] [employer] Consultant: Javed Stewart M.D. Performed By: #### S #### [facility] CLIA [id number] [address] [place] [address] GROSS DESCRIPTION A. COLON BIOPSY Normal [facility] Comment on above: Order Comment: Speci men Type: TISSUE SPECIMEN Ordering Facility: [facility] Address: [address] [place] [address] Result Comment: Rece ived in formalin are multiple pieces of oliver, soft tissue aggregating to 2.1 x 0.3 x 0.2 cm. Totally submitted in one cassette. B. ILEUM BIOPSY Received in formalin are two pieces of oliver, soft tissue aggregating to 0.9 x 0.2 x 0.2 cm. Totally submitted in one cassette. Gross examination performed at [facility], [address] [place] [address] November 08, 2022 8:57 PM Performed By: #### S #### [facility] CLIA [id number] [address] [place] [address] OF [place] CNOVon 09-24-2022 CNOV Office Visit (GENSWS ) PATRICIAITZEL Tj ([id number]) 1945 M Date Time Provider Department 09/24/22 9:30 AM ARIANNA MONTIEL During your visit today, we recorded the following information about you: Temperature Pulse Blood pressure Weight 97 degrees 72/minute 120/68 77.1 kg Height 1.829 m Pamella Harmon LPN 09/24/2022 9:14 AM Signed REVIEW OF SYSTEMS: General: The patient notes fatigue, notes weight loss, denies weight gain, denies feeling hot, and denies feelings of cold. Eyes: The patient denies glaucoma, denies eye injury/surgery, wears glasses or contacts. Ear/Nose/Throat: The patient notes allergies, denies hayfever, denies ear infections, and denies bloody noses. Cardiovascular: The patient denies chest pain, denies heart disease, notes high blood pressure,denies cardiac stent, denies prior heart attack, denies irregular heart beat, denies high cholesterol, denies poor circulation, denies heart failure, other cardiac issues, denies claudication, denies cold feet, denies peripheral arterial stent. Respiratory: The patient denies tuberculosis, denies pneumonia, denies frequent cough, denies pulmonary embolism, denies shortness of breath, and denies coughing up blood. Gastrointestinal: The patient denies difficulty swallowing, denies acid reflux, denies ulcers, denies vomiting, denies jaundice/hepatitis, denies gallbladder problems, denies black or tarry stools, denies hemorrhoids, denies bleeding from rectum, denies diverticulitis, denies constipation, notes diarrhea, denies loss of stool control, and denies hernias. Kidney/Bladder: The patient denies kidney stones, denies urine infections, and denies bloody urine. Skin: The patient denies a history of skin cancer, denies bleeding/changing moles, and denies a history of skin rash. Neurologic: The patient denies a history of epilepsy/convulsions, denies headaches, denies head/spinal injuries, and denies stroke/TIA. Psychiatric: The patient denies psychiatric medications, denies depression, and denies voices, denies substance abuse. Endocrine: The patient denies thyroid disorders, denies diabetes, and denies hormonal problems. Hematologic: The patient denies a history of bruising, denies bleeding, and denies anemia, denies blood clots. Infections: The patient denies a history of measles and mumps, notes rheumatic fever, and denies sexually transmitted diseases. Musculoskeletal: The patient notes back pain/injury, denies back problems, denies sciatica, denies knee/foot trouble, denies arthritis, or denies gout. When was patient's last Mammogram screening? N/A Last Colonoscopy: 2015 RADHA Mujica PA-C 09/25/2022 6:48 AM Signed HISTORY AND PHYSICAL Itzel Spencer Patricia 1945 REFERRING PHYSICIAN: [facility] [place] CHIEF COMPLAINT: Consult (colonoscopy) HPI: The patient is a 77 year old male referred for endoscopy. Patient presented today [id number]-fnsnek was under the impression he was having his colonoscopy today. Itzel notes a history of loose stools for some time, which have been worsening over the last couple months. Describes stools as pudding-like in consistency. Occasionally some darker-appealing stools but no obvious blood. [facility] was [facility] Xermelo previously which was helping, but no longer notes improvement with this. Denies nausea, vomiting, upper abdominal pain or changes in appetite. 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 Records show carcinoid tumor with metastases. Itzel has not had recent endoscopy. Denies chest pain, shortness of breath or recent hospitalizations. Denies problems with sedation in the past. PAST MEDICAL HISTORY Diagnosis Date Balanitis 2017 Benign paroxysmal positional vertigo Carcinoid tumor 2016 Chronic depression 2017 DDD (degenerative disc disease), cervical Dysthymia 2019 Essential hypertension Essential hypertension Gall stones Hematuria 2019 Hypercholesteremia 2007 Optic neuropathy Rheumatic fever as child Secondary malignant neoplasm of liver (HCC) 2016 Sleep apnea Solitary pulmonary nodule present on computed tomography of lung 2008 Stroke (HCC) PAST SURGICAL HISTORY Procedure Laterality Date CHOLECYSTECTOMY 05/06/1990 COLON SURGERY HX 05/06/2008 appendix removed, cancer COLONOSCOPY SCREENING 2016 HERNIA REPAIR W/MESH 05/06/2009 TONSILLECTOMY HX age 4 Current Outpatient Medications Medication Sig ARIPiprazole (ABILIFY) 5 mg tablet Take 5 mg by mouth once daily. colestipol (COLESTID) 1 gram tablet Take 1 g by mouth twice daily. levothyroxine (SYNTHROID) 25 mcg tablet Take 25 mcg by mouth daily before breakfast. container,empty (NASAL SPRAY BOTTLE MISC) loratadine 10 mg cap Take 10 mg by mouth once daily. escitalopram (more content not included)... Normal [facility] Absolute lymphocyte counton 09-23-2021 Lymphocytes Auto (Unsp spec) [#/Vol] 0.91 10*3/uL 0.83-4.51 [facility] Work Phone: Basophil percentageon 2021 Basophils/100 WBC (Bld) 0.4 % 0-1 [facility] Work Phone: Chloride [Moles/Vol] 105 mmol/L 98-107 [facility] Work Phone: Eosinophils/100 WBC (Bld) 0.8 % 0-5 [facility] Work Phone: Glucose [Mass/Vol] 107 mg/dL 74-106 [facility] Work Phone: Comment on above: Fasting Glucose resu lt from 100 to 125 mg/dL suggests IMPAIRED HOMEOSTASIS per A.D.A. criteria. Neutrophils (Bld) [#/Vol] 8.9 10*3/uL 2.0-7.7 [facility] Work Phone: Neutrophils/100 WBC (Bld) 82.6 % 47-70 [facility] Work Phone: Potassium [Moles/Vol] 3.1 mmol/L 3.5-5.1 [facility] Work Phone: Sodium [Moles/Vol] 136 mmol/L 136-145 [facility] Work Phone: WBC (Bld) [#/Vol] 10.7 10*3/uL 4.4-11.0 [facility] Work Phone: Blood erythrocytes count (nu mber/volume)on 09-23-2021 RBC (Bld) [#/Vol] 3.89 10*6/uL 4.6-6.2 [facility] Work Phone: [phone] Blood hemoglobin measurement (mass/volume)on 09-23-2021 Hemoglobin (Bld) [Mass/Vol] 12.1 g/dL 13.0-16.5 [facility] Work Phone: Blood lymphocytes/100 leukoc yteson 09-23-2021 Lymphocytes/100 WBC (Bld) 8.5 % 19-41 [facility] Work Phone: [phone] Blood monocytes/100 leukocyt eson 09-23-2021 Monocytes/100 WBC (Bld) 6.2 % 0-10 [facility] Work Phone: [phone] Blood platelet mean volumeon 09-23-2021 Platelet mean volume (Bld) [Entitic vol] 9.2 fL 6.2-12.0 [facility] Work Phone: [phone] Determination of erythrocyte mean corpuscular volume (MCV)on 09-23-2021 MCV (RBC) [Entitic vol] 90.5 fL 80-94 [facility] Work Phone: [phone] Hematocrit Auto (Bld) [Volum e fraction]on 09-23-2021 Hematocrit (Bld) [Volume fraction] 35.2 % 40-54 [facility] Work Phone: Laboratory - Chemistry and C hemistry - challengeon 09-23-2021 CO2 [Moles/Vol] 26.0 mmol/L 21.0-32.0 [facility] Work Phone: [phone] Urea nitrogen/Creatinine [Mass ratio] 17.4 mg/mg 10-20 [facility] Work Phone: [phone] Laboratory - Hematology and Cell countson 09-23-2021 Erythrocyte distribution width (RBC) [Entitic vol] 41.1 fL 35.1-43.9 [facility] Work Phone: [phone] Erythrocyte distribution width (RBC) [Ratio] 12.5 % 11.6-14.6 [facility] Work Phone: [phone] Immature granulocytes/100 WBC (Bld) 1.500 % 0.0-0.9 [facility] Work Phone: Comment on above: IG% - Immature Granu locytes (promyelocytes, myelocytes and metamyelocytes) > 1% indicates that a LEFT SHIFT is Present. MCH (RBC) [Entitic mass] 31.1 pg 27.0-32.0 [facility] Work Phone: [phone] Nucleated RBC/100 WBC (Bld) [Ratio] 0 % 0-5 [facility] Work Phone: [phone] MCHC Auto (RBC) [Mass/Vol]on 09-23-2021 MCHC (RBC) [Mass/Vol] 34.4 g/dL 32-36 [facility] Work Phone: [phone] Panel Informationon 09-23 Estimated Creatinine Clearance Calc 30.32 ml/min [facility] Work Phone: [phone] Estimated GFR (MDRD) Amer 38 mL/min >60 [facility] Work Phone: [phone] Comment on above: GFR Calc Estimated GFR (MDRD) Non-Af Amer 31 mL/min >60 [facility] Work Phone: [phone] Comment on above: Non- GFR Calc Platelets bldon 09-23-2021 Platelets (Bld) [#/Vol] 254 10*3/uL 150-450 [facility] Work Phone: [phone] Serum or plasma calcium sammy urement (mass/volume)on 09-23-2021 Calcium [Mass/Vol] 8.3 mg/dL 8.5-10.1 [facility] Work Phone: [phone] Serum or plasma creatinine m easurement (mass/volume)on 09-23-2021 Creatinine [Mass/Vol] 2.19 mg/dL 0.70-1.30 [facility] Work Phone: [phone] Comment on above: The validity of the calculated GFR & GFRAA in patients over 70 years has not been determined. Clinical correlation is essential. Serum or plasma urea nitroge n measurement (mass/volume)on 09-23-2021 Urea nitrogen [Mass/Vol] 38 mg/dL 7-18 [facility] Work Phone: Thin prep Papanicolaou smear with manual screeningon 09-23-2021 Thin prep Papanicolaou smear with manual screening 5 5-15 [facility] Work Phone: Basophil percentageon 2021 Basophil percentage 0-5 SEEN /hpf 0-5 [place] [facility] Work Phone: Basophil percentage 3.1 mg/dL 2.5-4.9 [place] [facility] Work Phone: Bilirubin [Mass/Vol] 0.60 mg/dL 0.20-1.[address] [facility] Work Phone: Comment on above: For patients on eltr ombopag therapy, use of Dimension [place] TBIL is not recommended. Protein [Mass/Vol] 6.4 g/dL 6.4-8.2 [facility] Work Phone: Bilirubin Test strip Ql (U)o n 09-22-2021 Bilirubin Ql (U) Negative Negative [facility] Work Phone: Ketones Test strip Ql (U)on 09-22-2021 Ketones Ql (U) Negative Negative [facility] Work Phone: Laboratory - Chemistry and C hemistry - challengeon 09-22-2021 ALP [Catalytic activity/Vol] 55 U/L 45-117 [facility] Work Phone: ALT [Catalytic activity/Vol] 30 U/L 16-61 [facility] Work Phone: Globulin (S) [Mass/Vol] 3.5 g/dL 2.2-4.2 [facility] Work Phone: Mucus LM Ql (Urine sed)on Mucus Ql (Urine sed) 0 SEEN /hpf [facility] Work Phone: Nitrite Test strip Ql (U)on 09-22-2021 Nitrite Ql (U) Negative Negative [facility] Work Phone: Protein Test strip Ql (U)on 09-22-2021 Protein Ql (U) 15 mg/dl Negative [facility] Work Phone: Serum or plasma albumin sammy urement (mass/volume)on 09-22-2021 Albumin [Mass/Vol] 2.9 g/dL 3.2-5.0 [facility] Work Phone: Serum or plasma albumin/glob ulin mass ratioon 09-22-2021 Albumin/Globulin [Mass ratio] 0.8 {ratio} 0.9-2.4 [facility] Work Phone: Squamous epithelial cells de tection in urine sediment by light microscopyon 09-22-2021 Epithelial cells.squamous LM Ql (Urine sed) 0 SEEN /hpf 0-5 [facility] Work Phone: Thin prep Papanicolaou smear with manual screeningon 09-22-2021 Thin prep Papanicolaou smear with manual screening 26 U/L 15-37 [facility] Work Phone: Urine blood detectionon 09-04 RBC Ql (U) Negative Negative [facility] Work Phone: RBC Ql (U) 0 SEEN /hpf 0-5 [facility] Work Phone: Urine clarityon 09-22-2021 Clarity (U) Clear Clear [facility] Work Phone: Urine color determinationon 09-22-2021 Color (U) Yellow Yellow [facility] Work Phone: Urine glucose detectionon Glucose Ql (U) Normal mg/dl Normal [facility] Work Phone: Urine leukocyte esterase det ection by dipstickon 09-22-2021 Leukocyte esterase Test strip Ql (U) Negative Negative [facility] Work Phone: Urine pHon 09-22-2021 pH (U) 6.0 [pH] 5.0 - 8.0 [facility] Work Phone: Urine sediment bacteria coun t by microscopy (number/high power field)on 09-22-2021 Bacteria LM.HPF (Urine sed) [#/Area] 0 /[HPF] None Seen [facility] Work Phone: Urine specific gravity measu rementon 09-22-2021 Specific gravity (U) [Rel density] 1.015 1.002-1.030 [facility] Work Phone: Urobilinogen Auto test strip Ql (U)on 09-22-2021 Urobilinogen Ql (U) Normal mg/dl Normal [facility] Work Phone: Absolute lymphocyte counton 09-21-2021 Lymphocytes Auto (Unsp spec) [#/Vol] 0.49 10*3/uL 0.83-4.51 [facility] Work Phone: Basophil percentageon 2021 Lactate [Moles/Vol] 1.6 mmol/L 0.4-2.0 [facility] Work Phone: Basophils/100 WBC (Bld) 0.4 % 0-1 [facility] Work Phone: Bilirubin [Mass/Vol] 0.70 mg/dL 0.20-1.00 [facility] Work Phone: Comment on above: For patients on eltr ombopag therapy, use of Dimension [place] TBIL is not recommended. Chloride [Moles/Vol] 98 mmol/L 98-107 [facility] Work Phone: Eosinophils/100 WBC (Bld) 0.3 % 0-5 [facility] Work Phone: Glucose [Mass/Vol] 136 mg/dL 74-106 [facility] Work Phone: Comment on above: Fasting Glucose resu lt greater than or equal to 126 mg/dL suggests DIABETES MELLITUS per A.D.A. criteria. Neutrophils (Bld) [#/Vol] 10.5 10*3/uL 2.0-7.7 [facility] Work Phone: Neutrophils/100 WBC (Bld) 88.5 % 47-70 [facility] Work Phone: Potassium [Moles/Vol] 2.8 mmol/L 3.5-5.1 [facility] Work Phone: Protein [Mass/Vol] 7.6 g/dL 6.4-8.2 [facility] Work Phone: [phone] Sodium [Moles/Vol] 135 mmol/L 136-145 [facility] Work Phone: [phone] WBC (Bld) [#/Vol] 11.9 10*3/uL 4.4-11.0 [facility] Work Phone: [phone] Blood erythrocytes count (nu mber/volume)on 09-21-2021 RBC (Bld) [#/Vol] 4.54 10*6/uL 4.6-6.2 [facility] Work Phone: [phone] Blood hemoglobin measurement (mass/volume)on 09-21-2021 Hemoglobin (Bld) [Mass/Vol] 14.1 g/dL 13.0-16.5 [facility] Work Phone: [phone] Blood lymphocytes/100 leukoc yteson 09-21-2021 Lymphocytes/100 WBC (Bld) 4.1 % 19-41 [facility] Work Phone: [phone] Blood manual differential co mment interpretation (narrative result)on 09-21-2021 Manual differential comment Virgil (Bld) [Interp] SEE COMMENT [facility] Work Phone: Comment on above: LYMPHOPENIA NOTED Blood monocytes/100 leukocyt eson 09-21-2021 Monocytes/100 WBC (Bld) 6.0 % 0-10 [facility] Work Phone: [phone] Blood platelet adequacy dete ction by light microscopyon 09-21-2021 Platelets LM Ql (Bld) ADEQUATE ADEQ [facility] Work Phone: [phone] Blood platelet mean volumeon 09-21-2021 Platelet mean volume (Bld) [Entitic vol] 9.6 fL 6.2-12.0 [facility] Work Phone: [phone] Determination of erythrocyte mean corpuscular volume (MCV)on 09-21-2021 MCV (RBC) [Entitic vol] 88.3 fL 80-94 [facility] Work Phone: Hematocrit Auto (Bld) [Volum e fraction]on 09-21-2021 Hematocrit (Bld) [Volume fraction] 40.1 % 40-54 [facility] Work Phone: INR in Blood by Coagulation assayon 09-21-2021 INR Coag (Bld) [Relative time] 1.1 {INR} [facility] Work Phone: Laboratory - Chemistry and C hemistry - challengeon 09-21-2021 ALP [Catalytic activity/Vol] 71 U/L 45-117 [facility] Work Phone: ALT [Catalytic activity/Vol] 37 U/L 16-61 [facility] Work Phone: CO2 [Moles/Vol] 26.0 mmol/L 21.0-32.0 [facility] Work Phone: Globulin (S) [Mass/Vol] 4.1 g/dL 2.2-4.2 [facility] Work Phone: Magnesium [Mass/Vol] 1.8 mg/dL 1.6-2.6 [facility] Work Phone: Natriuretic peptide B (Bld) [Mass/Vol] 32.6 pg/mL 0-100 [facility] Work Phone: Urea nitrogen/Creatinine [Mass ratio] 17.7 mg/mg 10-20 [facility] Work Phone: Laboratory - Coagulationon 0 09-21-2021 aPTT Coag (Bld) [Time] 33.5 s 24.1-36.2 [facility] Work Phone: PT Coag (PPP) [Time] 13.8 s 11.7-14.9 [facility] Work Phone: Laboratory - Hematology and Cell countson 09-21-2021 Anisocytosis Ql (Bld) [facility] Work [facility]: Erythrocyte distribution width (RBC) [Entitic vol] 39.8 fL 35.1-43.9 [facility] Work Phone: Erythrocyte distribution width (RBC) [Ratio] 12.2 % 11.6-14.6 [facility] Work Phone: Immature granulocytes/100 WBC (Bld) 0.700 % 0.0-0.9 [facility] Work Phone: [phone] Comment on above: IG% - Immature Granu locytes (promyelocytes, myelocytes and metamyelocytes) > 1% indicates that a LEFT SHIFT is Present. MCH (RBC) [Entitic mass] 31.1 pg 27.0-32.0 [facility] Work Phone: Nucleated RBC/100 WBC (Bld) [Ratio] 0 % 0-5 [facility] Work Phone: Laboratory - Microbiology an d Antimicrobial susceptibilityon 09-21-2021 SARS-CoV-2 (COVID-19) RNA PATRICIA+probe Ql (Unsp spec) Not detected Not Detect [facility] Work Phone: Comment on above: Normal Reference Ran ge: Not DetectedMethod:(RT-PCR) real-time reverse transcriptase PCRLuminex JOSE ANTONIO Instrument*The Food and Drug Administration (FDA) has issued an Emergency Use Authorization (EAU) for the JOSE ANTONIO SARS-CoV-2 Assay for the rapid detection of the virus that causes COVID-19. This test has been validated, but the FDAs independent review of this validation is pending.*Negative results do not preclude infection and should not be used as the sole basis for treatment or patient management. Optimum specimen types and timing for peak viral levels during infections caused by SARS-CoV-2 have not been determined. Collection of multiple specimens from the same patient may be necessary to detect the virus. The possibility of a false negative result should be considered if the patient has clinical presentation or has had recent exposure. MCHC Auto (RBC) [Mass/Vol]on 09-21-2021 MCHC (RBC) [Mass/Vol] 35.2 g/dL 32-36 [facility] Work Phone: No Panel Informationon 09-21 Respiratory Panel (PCR) Human [place] [facility] Work Phone: D-Dimer Quantitative (PE/DVT) 1.40 FEU/ug/m 0.27-0.49 [facility] Work Phone: Comment on above: CRITICAL VALUE VERIF IED. CALLED TO JULIANA CURRY RN [id number]/21/[id number] Izaiah Langley.RESULTS READ BACK BY SAME . D-Dimer ELEVATED (>0.49): Additional studies and clinicalassessments are indicated to conclude diagnosis of:Deep Vein Thrombosis (DVT) or Pulmonary Embolism (PE) Estimated Creatinine Clearance Calc 21.45 ml/min [facility] Work Phone: Estimated GFR (MDRD) Amer 25 mL/min >60 [facility] Work Phone: Comment on above: GFR Calc Estimated GFR (MDRD) Non-Af Amer 20 mL/min >60 [facility] Work Phone: Comment on above: Non- GFR Calc Troponin I High Sensitivity 7 pg/mL 3.0-78.0 [facility] Work Phone: Comment on above: Please Note: New Leann t Units and Gender Specific Reference Ranges. For more information see Policy Stat Procedure [place] High Sensitivity Troponin (TNIH) and attachments. Platelets bldon 09-21-2021 Platelets (Bld) [#/Vol] 301 10*3/uL 150-450 [facility] [place] Work Phone: RBC morphologyon 09-21-2021 RBC morphology finding Nom (Bld) NORM C+C NORMAL NORM C&C [facility] [place] Work Phone: Serum or plasma C reactive p rotein measurement (mass/volume)on 09-21-2021 CRP [Mass/Vol] 80.40 mg/L 0.0-3.0 [facility] [place] Work Phone: Comment on above: C-Reactive Protein ( CRP) provides useful information for thediagnosis, therapy and monitoring of inflammatory processesand associated diseases. For the evaluation of Relative Riskfor Cardiovascular Disease, a High Sensitivity CRP (HSCRP)should be ordered. Serum or plasma albumin sammy urement (mass/volume)on 09-21-2021 Albumin [Mass/Vol] 3.5 g/dL 3.2-5.0 [facility] Work Phone: Serum or plasma albumin/glob ulin mass ratioon 09-21-2021 Albumin/Globulin [Mass ratio] 0.9 {ratio} 0.9-2.4 [facility] [place] Work Phone: Serum or plasma calcium sammy urement (mass/volume)on 09-21-2021 Calcium [Mass/Vol] 8.9 mg/dL 8.5-10.1 [facility] Work Phone: Serum or plasma creatinine m easurement (mass/volume)on 09-21-2021 Creatinine [Mass/Vol] 3.17 mg/dL 0.70-1.30 [facility] Work Phone: Comment on above: The validity of the calculated GFR & GFRAA in patients over 70 years has not been determined. Clinical correlation is essential. Serum or plasma ferritin new surement (mass/volume)on 09-21-2021 Ferritin [Mass/Vol] 397 ng/mL 26-388 [facility] Work Phone: Serum or plasma urea nitroge n measurement (mass/volume)on 09-21-2021 Urea nitrogen [Mass/Vol] 56 mg/dL 7-18 [facility] [place] Work Phone: Serum procalcitonin measurem enton 09-21-2021 Procalcitonin [Mass/Vol] 0.34 ng/mL 0.00-0.09 [facility] [place] Work Phone: Comment on above: A procalcitonin (PCT ) level above 2.0 ng/mL on the first day of ICU admission is associated with a high risk for progression to severe sepsis and/or septic shock. A PCT level below 0.5 ng/mL on the first day of ICU admission is associated with a low risk for progression to severe and/or septic shock. Note: Concentrations <0.5 ng/mL do not exclude an infection on account of localized infections (without systemic signs) which can be associated with such low concentrations, or a systemic infection in its initial stages (<6 hours). Furthermore, increased procalcitonin can occur without infection. PCT concentrations between 0.5 and 2.0 ng/mL should be interpreted taking into account the patient's history. It is recommended to retest PCT within 6-24 hours if any concentrations <2 ng/mL are obtained. Thin prep Papanicolaou smear with manual screeningon 09-21-2021 Thin prep Papanicolaou smear with manual screening 38 U/L 15-37 [facility] [place] Work Phone: Thin prep Papanicolaou smear with manual screening 11 5-15 [facility] [place] Work Phone: Thin prep Papanicolaou smear with manual screening 253 U/L 87-241 [facility] [place] Work Phone: .Auto Diffon 06-06-2017 Basophils Auto #/vol (Bld) 0.00 10 3/mcL Normal 0.00-0.19 [facility] ([place]) Comment on above: Performed By: #### C BC, ADIFF, ANEU, CMP, GFR ####Marilynn [address] [place], [place] [address] Basophils/100 WBC Auto (Bld) 0.5 % Normal 0.0-2.5 [facility] ([place]) Comment on above: Performed By: #### C BC, ADIFF, ANEU, CMP, GFR ####Marilynn [address] [place], [place] [address] Eosinophils 0.00 10 3/mcL Normal 0.00-0.40 [facility] ([place] Comment on above: Performed By: #### C BC, ADIFF, ANEU, CMP, GFR ####Marilynn [address] [place], [place] [address] Eosinophils/100 leukocytes 0.3 % Normal 0.0-7.0 [facility] ([place] Comment on above: Performed By: #### C BC, ADIFF, ANEU, CMP, GFR ####Marilynn [address] [place], [place] [address] Lymphocytes 0.50 10 3/mcL Low 0.77-3.85 [facility] ([place] Comment on above: Performed By: #### C BC, ADIFF, ANEU, CMP, GFR ####Marilynn [address] [place], [place] [address] Lymphocytes/100 leukocytes 8.0 % Low 10.0-50.0 [facility] ([place] Comment on above: Performed By: #### C BC, ADIFF, ANEU, CMP, GFR ####Marilynn [address] [place], [place] [address] Monocytes 0.60 10 3/mcL Normal 0.15-1.00 [facility] ([place]) Comment on above: Performed By: #### C BC, ADIFF, ANEU, CMP, GFR ####Marilynn [address] [place], [place] [address] Monocytes/100 leukocytes 8.6 % Normal 1.7-13.0 [facility] ([place]) Comment on above: Performed By: #### C BC, ADIFF, ANEU, CMP, GFR ####[address] [place], [place] [address] Neutrophils/100 WBC Auto (Bld) 82.6 % High 37.0-80.0 [facility] ([place]) Comment on above: Performed By: #### C BC, ADIFF, ANEU, CMP, GFR ####Marilynn [address] [place], [place] [address] .GFRon 06-06-2017 eGFR (non-black) 40 ml/min/1.73sqm Normal [facility] ([place]) Comment on above: Result Comment: GFR Population mean for , Non- Americans Ages 20-29 = 116 mL/min/1.73 sq.m. Ages 30-39 = 107 mL/min/1.73 sq.m. Ages 40-49 = 99 mL/min/1.73 sq.m. Ages 50-59 = 93 mL/min/1.73 sq.m. Ages 60-69 = 85 mL/min/1.73 sq.m. Ages 70+ = 75 mL/min/1.73 sq.m.Chronic Kidney Disease: Less than 60 mL/min/1.73 square metersEnd Stage Renal Disease: Less than 15 mL/min/1.73 square meters Performed By: #### C BC, ADIFF, ANEU, CMP, GFR ####M[address]nn [address] [place], [place] [address] eGFR (non-black) 48 ml/min/1.73sqm Normal [facility] ([place]) Comment on above: Result Comment: GFR Population mean for , Non- Americans Ages 20-29 = 116 mL/min/1.73 sq.m. Ages 30-39 = 107 mL/min/1.73 sq.m. Ages 40-49 = 99 mL/min/1.73 sq.m. Ages 50-59 = 93 mL/min/1.73 sq.m. Ages 60-69 = 85 mL/min/1.73 sq.m. Ages 70+ = 75 mL/min/1.73 sq.m.Chronic Kidney Disease: Less than 60 mL/min/1.73 square metersEnd Stage Renal Disease: Less than 15 mL/min/1.73 square meters Performed By: #### C BC, ADIFF, ANEU, CMP, GFR ####[address] [place], [place] [address] .NEUABSon 06-06-2017 Neutrophils 5.50 10 3/mcL Normal 2.85-6.16 [facility] ([place]) Comment on above: Performed By: #### C BC, ADIFF, ANEU, CMP, GFR ####[address] [place], [place] [address] CBCon 06-06-2017 Erythrocyte distribution width Auto Ratio (RBC) 13.4 % Normal 11.5-14.5 [facility] ([place] Comment on above: Performed By: #### C BC, ADIFF, ANEU, CMP, GFR ####Marilynn [address] [place], [place] [address] Erythrocytes (RBC) 4.79 10 6/mcL Normal 4.04-6.13 [facility] ([place]) Comment on above: Performed By: #### C BC, ADIFF, ANEU, CMP, GFR ####Marilynn [address] [place], [place] [address] Hematocrit (HCT) 42.9 % Normal 42.0-52.0 [facility] ([place] Comment on above: Performed By: #### C BC, ADIFF, ANEU, CMP, GFR ####[address] [place], [place] [address] Hemoglobin mass conc (Bld) 14.6 G/dL Normal 14.0-18.0 [facility] ([place]) Comment on above: Performed By: #### C BC, ADIFF, ANEU, CMP, GFR ####[address] [place], [place] [address] MCH 30.5 pg Normal 27.0-31.2 [facility] ([place] Comment on above: Performed By: #### C BC, ADIFF, ANEU, CMP, GFR ####[address] [place], [place] [address] MCHC mass conc (RBC) 34.0 G/dL Normal 31.8-35.4 [facility] ([place]) Comment on above: Performed By: #### C BC, ADIFF, ANEU, CMP, GFR ####M[address] [place], [place] [address] MCV 89.5 fL Normal 80.0-94.0 [facility] ([place] Comment on above: Performed By: #### C BC, ADIFF, ANEU, CMP, GFR ####[address] [place], [place] [address] Platelet mean volume (PMV) 8.4 fL Normal 7.4-10.4 [facility] ([place] Comment on above: Performed By: #### C BC, ADIFF, ANEU, CMP, GFR ####M[address] [place], [place] [address] Platelets 125 10 3/mcL Low 130-400 [facility] ([place] Comment on above: Performed By: #### C BC, ADIFF, ANEU, CMP, GFR ####[address] [place], [place] [address] WBC (Leukocytes) 6.60 10 3/mcL Normal 4.60-10.80 [facility] ([place]) Comment on above: Performed By: #### C BC, ADIFF, ANEU, CMP, GFR ####Marilynn [address] [place], [place] [address] CMPon 06-06-2017 Alanine aminotransferase (ALT) 23 U/L Normal 10-35 [facility] ([place] Comment on above: Performed By: #### C BC, ADIFF, ANEU, CMP, GFR ####M[address] [place], [place] [address] Albumin 4.0 G/dL Normal 3.4-4.8 [facility] ([place] Comment on above: Performed By: #### C BC, ADIFF, ANEU, CMP, GFR ####Marilynn [address] [place], [place] [address] Albumin/Globulin Ratio 2.2 {ratio} Normal 1.1-2.5 [facility] ([place]) Comment on above: Performed By: #### C BC, ADIFF, ANEU, CMP, GFR ####Marily[address] [place], [place] [address] Alk Phos 61 IU/L Normal 40-135 [facility] ([place] Comment on above: Performed By: #### C BC, ADIFF, ANEU, CMP, GFR ####M[address] [place], [place] [address] Aspartate aminotransferase (AST) 51 U/L High 10-40 [facility] ([place] Comment on above: Performed By: #### C BC, ADIFF, ANEU, CMP, GFR ####Marily[address] [place], [place] [address] Bili Total 0.6 mg/dL Normal 0.2-1.0 [facility] ([place] Comment on above: Performed By: #### C BC, ADIFF, ANEU, CMP, GFR ####Marilynn [address] [place], [place] [address] BUN/Creatinine Ratio 14 ratio Normal 7-27 [facility] ([place]) Comment on above: Performed By: #### C BC, ADIFF, ANEU, CMP, GFR ####Marilynn [address] [place], [place] [address] Calcium 8.3 mg/dL Low 8.4-10.2 [facility] ([place] Comment on above: Performed By: #### C BC, ADIFF, ANEU, CMP, GFR ####Marilynn [address] [place], [place] [address] Chloride 101 mmol/L Normal 98-107 [facility] ([place] Comment on above: Performed By: #### C BC, ADIFF, ANEU, CMP, GFR ####Marily[address] [place], [place] [address] CO2 26 mmol/L Normal 23-31 [facility] ([place] Comment on above: Performed By: #### C BC, ADIFF, ANEU, CMP, GFR ####Marilynn [address] [place], [place] [address] Creatinine 1.7 mg/dL High 0.6-1.2 [facility] ([place] Comment on above: Performed By: #### C BC, ADIFF, ANEU, CMP, GFR ####Marily[address] [place], [place] [address] Electrolyte Balance 9.0 mEq/L Normal [facility] ([place]) Comment on above: Performed By: #### C BC, ADIFF, ANEU, CMP, GFR ####M[address] [place], [place] [address] Globulin 1.8 G/dL Normal [facility] ([place] Comment on above: Performed By: #### C BC, ADIFF, ANEU, CMP, GFR ####[address] [place], [place] [address] Glucose mass conc 123 mg/dL High 83-110 [facility] ([place] Comment on above: Performed By: #### C BC, ADIFF, ANEU, CMP, GFR ####[address] [place], [place] [address] Potassium molar conc 3.7 mmol/L Normal 3.5-5.1 [facility] ([place]) Comment on above: Performed By: #### C BC, ADIFF, ANEU, CMP, GFR ####M[address] [place], [place] [address] Protein 5.8 G/dL Low 6.0-8.3 [facility] ([place] Comment on above: Performed By: #### C BC, ADIFF, ANEU, CMP, GFR ####Marilynn [address] [place], [place] [address] Sodium 136 mmol/L Normal 136-146 [facility] ([place] Comment on above: Performed By: #### C BC, ADIFF, ANEU, CMP, GFR ####Marilynn [address] [place], [place] [address] Urea nitrogen 23.7 mg/dL High 7.0-18.0 [facility] ([place] Comment on above: Performed By: #### C BC, ADIFF, ANEU, CMP, GFR ####Marilynn [address] [place], [place] [address] CT HEAD OR BRAIN W/O CONTRAS Ton 06-06-2017 CT HEAD OR BRAIN W/O CONTRAST ORIGINALHead CT 06/06/2017 1:14 PM INDICATION: seizures COMPARISON: No TECHNIQUE: Routine non-contrast head CT. This exam was performed according to our departmental dose optimization program, and includes the following measures where applicable: automated exposure control, adjustment of the mAs and/or kVp according to patient size and/or exam, and an iterative reconstruction algorithm. FINDINGS: The ventricles and sulci are normal in size and configuration. There is no shift of midline structures. There are no abnormal intra or extra-axial fluid collections. There is mild irregular decreased attenuation in the white matter of the katz radiata and centrum semiovale. Pires-white matter differentiation is maintained. The paranasal sinuses and mastoid air cells are clear. The calvaria and the bones of the base of the skull are intact. Examination was performed within 24 hours of presentation to the hospital. IMPRESSION: Volume loss and white matter changes; no acute findings. Interpreted By: Rafael Arreguinreliminary Report By: Rafael Arreguin MDElectronically Signed By: Rafael Arreguin MD Dictated Date: 06/06/2017 1:26:14 PM Prelim Date: 06/06/2017 1:26:14 PM Sign Date: 06/06/2017 1:27:05 PM Normal [facility] ([place]) CT SPINE CERVICAL W/O CONTRA STon 06-06-2017 CT SPINE CERVICAL W/O CONTRAST ORIGINALCT SPINE CERVICAL W/O CONTRAST, 06/06/2017 12:59 PM INDICATION: INJURY COMPARISON: No Technique: Cervical spine CT with sagittal and coronal reconstructions. This exam was performed according to our departmental dose optimization program, and includes the following measures where applicable: automated exposure control, adjustment of the mAs and/or kVp according to patient size and/or exam, and an iterative reconstruction algorithm. FINDINGS: There are no acute fractures or dislocations. Alignment is within normal limits. The individual vertebral bodies are intact. The prevertebral soft tissues are unremarkable in appearance. IMPRESSION: No acute fracture. Interpreted By: Rafael Arreguinreliminary Report By: Rafael Arreguin MDElectronically Signed By: Rafael Arreguin MD Dictated Date: 06/06/2017 1:29:30 PM Prelim Date: 06/06/2017 1:29:30 PM Sign Date: 06/06/2017 1:30:43 PM Normal [facility] ([place]) [facility] Note on 06-06-2017 [facility] Note Normal [facility] ([place]) Culture, urine Bacteria identified Cx Nom (U) Mixed Gram Pos & Gram Neg Org [facility] [place] Work Phone: Laboratory - Microbiology an d Antimicrobial susceptibility Bacteria identified Cx Nom (Bld) No growth in 5 days. [facility] [place] Work Phone: No Panel Information Respiratory Panel (PCR) Human [place] [facility] Work Phone: Vital Signs Date Time Vital Sign Value Performing Clinician Facility 09-30-2024 05:33-0400 Body temperature 97.6 [degF] [facility] 09-30-2024 05:33-0400 Diastolic blood pressure 89 mm[Hg] [facility] 09-30-2024 05:33-0400 Heart rate 62 /min [facility] 09-30-2024 05:33-0400 Respiratory rate 18 /min [facility] 09-30-2024 05:33-0400 SaO2% (BldA) [Mass fraction] 95 % [facility] 09-30-2024 05:33-0400 Systolic blood pressure 161 mm[Hg] [facility] 09-30-2024 04:33-0400 Body mass index (BMI) [Ratio] 30.6 kg/m2 [facility] 09-25-2024 05:23-0400 Body weight 75.93 kg [facility] 09-24-2024 11:36-0400 Body height 157.48 cm [facility] 09-23-2024 16:48-0400 Body temperature 98 [degF] [facility] 09-23-2024 16:48-0400 Diastolic blood pressure 76 mm[Hg] [facility] 09-23-2024 16:48-0400 Heart rate 55 /min [facility] 09-23-2024 16:48-0400 Respiratory rate 17 /min [facility] 09-23-2024 16:48-0400 SaO2% (BldA) [Mass fraction] 97 % [facility] 09-23-2024 16:48-0400 Systolic blood pressure 162 mm[Hg] [facility] 09-23-2024 15:13-0400 Body mass index (BMI) [Ratio] 22.8 kg/m2 [facility] 09-23-2024 11:09-0400 Body height 182.88 cm [facility] 09-23-2024 11:09-0400 Body weight 76.2 kg [facility] 09-20-2024 18:37-0400 Body temperature 97.6 [degF] [facility] 09-20-2024 18:37-0400 Diastolic blood pressure 84 mm[Hg] [facility] 09-20-2024 18:37-0400 Heart rate 56 /min [facility] 09-20-2024 18:37-0400 Respiratory rate 16 /min [facility] 09-20-2024 18:37-0400 SaO2% (BldA) [Mass fraction] 97 % [facility] 09-20-2024 18:37-0400 Systolic blood pressure 176 mm[Hg] [facility] 09-20-2024 16:30-0400 Body mass index (BMI) [Ratio] 29.2 kg/m2 [facility] 09-20-2024 13:54-0400 Body height 182.88 cm [facility] 09-20-2024 13:54-0400 Body weight 97.6 kg [facility] 11-15-2022 10:36-0400 Body temperature 97.3 [degF] Arianna Tiana PA-C Work Phone: [facility] 11-15-2022 10:36-0400 Body weight 76.11 kg Arianna Tiana PA-C Work Phone: [facility] 11-15-2022 10:36-0400 Diastolic blood pressure 78 mm[Hg] Arianna [place] PA-C Work Phone: [facility] 11-15-2022 10:36-0400 Heart rate 68 /min Arianna Tiana PA-C Work Phone: [facility] 11-15-2022 10:36-0400 SaO2% (BldA) [Mass fraction] 97 % Arianna [place] PA-C Work Phone: [facility] 11-15-2022 10:36-0400 Systolic blood pressure 90 mm[Hg] Arianna Tiana PA-C Work Phone: [facility] 11-08-2022 09:58-0400 Diastolic blood pressure 79 mm[Hg] Troy Villavicencio MD Work Phone: [facility] 11-08-2022 09:58-0400 Heart rate 66 /min Troy Villavicencio MD Work Phone: [facility] 11-08-2022 09:58-0400 Respiratory rate 16 /min Troy Villavicencio MD Work Phone: [facility] 11-08-2022 09:58-0400 SaO2% (BldA) [Mass fraction] 97 % Troy Villavicencio MD Work Phone: [facility] 11-08-2022 09:58-0400 Systolic blood pressure 137 mm[Hg] Troy Villavicencio MD Work Phone: [facility] 11-08-2022 08:29-0400 Body temperature 97.5 [degF] Troy Villavicencio MD Work Phone: [facility] 11-13-2021 13:38-0400 Respiratory rate 18 /min [facility] Work Phone: 11-13-2021 12:01-0400 Body height 182.88 cm [facility] Work Phone: 11-13-2021 12:01-0400 Body mass index (BMI) [Ratio] 22.4 kg/m2 [facility] Work Phone: 11-13-2021 12:01-0400 Body temperature 98.2 [degF] [facility] Work Phone: 11-13-2021 12:01-0400 Body weight 74.84 kg [facility] Work Phone: 11-13-2021 12:01-0400 Diastolic blood pressure 72 mm[Hg] [facility] Work Phone: 11-13-2021 12:01-0400 Heart rate 65 /min [facility] Work Phone: 11-13-2021 12:01-0400 SaO2% (BldA) [Mass fraction] 97 % [facility] Work Phone: 11-13-2021 12:01-0400 Systolic blood pressure 117 mm[Hg] [facility] Work Phone: 09-23-2021 11:43-0400 SaO2% (BldA) [Mass fraction] 89 % [facility] Work Phone: 09-23-2021 09:45-0400 Body temperature 98.2 [degF] [facility] Work Phone: 09-23-2021 09:45-0400 Diastolic blood pressure 63 mm[Hg] [facility] Work Phone: 09-23-2021 09:45-0400 Heart rate 55 /min [facility] Work Phone: 09-23-2021 09:45-0400 Respiratory rate 18 /min [facility] Work Phone: 09-23-2021 09:45-0400 Systolic blood pressure 111 mm[Hg] [facility] Work Phone: 09-23-2021 06:00-0400 Body weight 74.7 kg [facility] Work Phone: 09-22-2021 15:05-0400 Inhaled oxygen flow rate 4 L/min [facility] Work Phone: 09-22-2021 14:11-0400 Body height 182.88 cm [facility] Work Phone: 09-22-2021 07:36-0400 Inhaled oxygen concentration 97 % [facility] Work Phone: 09-21-2021 20:49-0400 Body mass index (BMI) [Ratio] 22.4 kg/m2 [facility] Work Phone: 09-21-2021 20:00-0400 Body temperature 100 [degF] [facility] Work Phone: 09-21-2021 20:00-0400 Diastolic blood pressure 99 mm[Hg] [facility] Work Phone: 09-21-2021 20:00-0400 Heart rate 55 /min [facility] Work Phone: 09-21-2021 20:00-0400 Respiratory rate 16 /min [facility] Work Phone: 09-21-2021 20:00-0400 SaO2% (BldA) [Mass fraction] 97 % [facility] Work Phone: 09-21-2021 20:00-0400 Systolic blood pressure 105 mm[Hg] [facility] Work Phone: 09-21-2021 15:54-0400 Body height 182.88 cm [facility] Work Phone: 09-21-2021 15:54-0400 Body mass index (BMI) [Ratio] 22.8 kg/m2 [facility] Work Phone: 09-21-2021 15:54-0400 Body weight 76.5 kg [facility] Work Phone: Encounters Encounter Date Encounter Type Care Provider Facility Start: 10-05-[address] Rebecca Lima DO -[facility] Work Phone: Start: 10-05-2024 ambulatory [facility] Facility:[facility] Start: 09-30-2024 Non-patient / Non-visit Dr. Bessie Zuniga [facility] Work Phone: Start: 09-29-2024 Non-patient / Non-visit Dr. Bessie Zuniga [facility] Work Phone: Start: 09-27-2024 Non-patient / Non-visit Dr. Bessie Zuniga [facility] Work Phone: Start: 09-24-2024 Non-patient / Non-visit Dr. Bessie Zuniga [facility] Work Phone: Start: 09-23-2024 ambulatory Pamella Zuniga Facility:[facility] Start: 09-23-2024 End: 09-30-2024 Evaluation and management of inpatient [facility] Work Phone: Start: 09-23-2024 Non-patient / Non-visit Dr. Rebecca Lima DO [facility] Work Phone: Start: 09-22-2024 Non-patient / Non-visit Dr. Rebecca Lima DO [facility] Work Phone: Start: 09-21-2024 Non-patient / Non-visit [facility]. Elyssa PIMENTEL -[facility] Start: 09-21-2024 ambulatory [facility] Start: 09-21-2024 End: 09-23-2024 Evaluation and management of inpatient Dr. Rebecca Lima DO -[facility] Work Phone: Start: 09-20-2024 ambulatory Linda Falcon Facility :[facility] Start: 09-20-2024 Evaluation and management of inpatient Dr. Linda Falcon MD -[facility] Work Phone: Start: 09-20-2024 Non-patient / Non-visit Dr. Linda Falcon MD [facility] Work Phone: Start: 09-20-2024 observation encounter [facility] Work Phone: Start: 11-15-2022 End: 11-15-2022 ambulatory [facility] Facility:[facility] Start: 11-15-2022 End: 11-15-2022 Patient encounter procedure Arianna Montiel PA-C Work Phone: General Surgery Comment on above: Loose stools (Primar y Dx); Status post partial resection of colon Start: 11-08-2022 End: 11-08-2022 ambulatory [facility] Facility:[facility] Start: 11-08-2022 End: 11-08-2022 Subsequent hospital visit by physician Troy Villavicencio MD Work Phone: Ambulatory Surgery Comment on above: Diarrhea, unspecifie d type [R19.7] Start: 09-24-2022 End: 09-25-2022 ambulatory [facility] [facility] Start: 11-13-2021 End: 11-13-2021 Emergency department patient visit [facility]Emergency Department Start: 09-23-2021 Non-patient / Non-visit [facility] Inpatient Physicians Start: 09-22-2021 Non-patient / Non-visit [facility] Inpatient Physicians Start: 09-21-2021 End: 09-23-2021 Evaluation and management of inpatient [facility]-Progressive Care Unit Start: 09-21-2021 Non-patient / Non-visit [facility] Inpatient Physicians Start: 06-06-2017 End: 06-06-2017 Emergency department [facility] Facility:B Procedures Date Procedure Procedure Detail Performing Clinician Start: 09-28-2024 Estimated creatinine clearance [facility] Start: 09-28-2024 Serum inorganic phos phate measurement [facility] Start: 09-23-2024 Estimated creatinine clearance [facility] Start: 09-23-2024 Serum inorganic phos phate measurement [facility] Start: 09-21-2024 MRI of brain with contrast [facility] Start: 09-20-2024 X-ray of chest, PA a nd lateral views [facility] Start: 09-20-2024 Urnls dip stick/tabl et reagent auto microscopy [facility] Start: 09-20-2024 CT angiography of he ad and neck [facility] Start: 09-20-2024 Computed tomography of abdomen and pelvis with intravenous contrast [facility] Start: 09-20-2024 CT of head without contrast [facility] Start: 09-20-2024 Estimated creatinine clearance [facility] Start: 11-08-2022 Level iv surg pathol ogy gross&microscopic exam Troy Villavicencio MD Work Phone: Start: 11-08-2022 Colonoscopy flx dx w /collj spec when pfrmd Arianna Montiel PA-C Work Phone: Start: 11-08-2022 Colonoscopy Arianna mcguire PA-C Work Phone: Start: 09-22-2021 Plain chest X-ray [facility] Start: 09-21-2021 CT of chest without contrast [facility] Start: 09-21-2021 Plain chest X-ray [facility] Start: 09-21-2021 Respiratory Panel (PCR) [facility] Bacteria identified in Blood by Culture [facility] Respiratory Panel (PCR) [facility] Urine culture [facility] Plan of Treatment Date Care Activity Detail Author Start: 11-09-2027 Colonoscopy COLONOSCOPY [facility] Start: 11-09-2027 COLORECTAL CANCER SCREENING COLORECTAL CANCER SCREENING [facility] Start: 09-30-2024 Patient discharge [facility] Start: 09-30-2024 Referral to service [facility] Start: 09-25-2024 [facility] Start: 09-23-2024 Following clinical pathway protocol [facility] Start: 09-23-2024 Recommendation to continue with treatment [facility] Start: 09-23-2024 Referral to service [facility] Start: 09-23-2024 Urinary bladder training [facility] Start: 09-23-2024 Admission procedure [facility] Start: 09-23-2024 Measuring intake and output [facility] Start: 09-23-2024 Patient referral to dietitian [facility] Start: 09-23-2024 Referral to occupational therapist [facility] Start: 09-23-2024 Vital signs measurements [facility] Start: 09-23-2024 [facility] Start: 09-23-2024 Patient discharge [facility] Start: 09-21-2024 Admission procedure [facility] Start: 09-21-2024 Thyroid stimulating hormone measurement [facility] Start: 09-21-2024 [facility] Start: 09-20-2024 Following clinical pathway protocol [facility] Start: 09-20-2024 Aspiration precautions [facility] Start: 09-20-2024 Assessment of risk of venous thromboembolism [facility] Start: 09-20-2024 Cardiac monitoring [facility] Start: 09-20-2024 Catheterization of vein [facility] Start: 09-20-2024 Consultation [facility] Start: 09-20-2024 Continuous pulse oximetry [facility] Start: 09-20-2024 Elevation of head of bed [facility] Start: 09-20-2024 Exercises [facility] Start: 09-20-2024 Fall prevention [facility] Start: 09-20-2024 Inhalation therapy procedure [facility] Start: 09-20-2024 Insertion of catheter into peripheral vein [facility] Start: 09-20-2024 Introduction of urinary catheter [facility] Start: 09-20-2024 Measuring intake and output [facility] Start: 09-20-2024 Notification of physician [facility] Start: 09-20-2024 Oxygen therapy [facility] Start: 09-20-2024 Patient referral to dietitian [facility] Start: 09-20-2024 Providing care according to standard [facility] Start: 09-20-2024 Provision of activity privileges [facility] Start: 09-20-2024 Referral to occupational therapist [facility] Start: 09-20-2024 Referral to service [facility] Start: 09-20-2024 Speech therapy assessment [facility] Start: 09-20-2024 Tobacco use cessation education [facility] Start: 09-20-2024 End: 09-20-2024 [facility] Start: 09-20-2024 Verification routine [facility] Start: 09-20-2024 Hospital admission, emergency, from emergency room, medical nature [facility] Start: 09-20-2024 Admission procedure [facility] Start: 09-20-2024 Serum inorganic phosphate measurement [facility] Start: 09-20-2024 [facility] Start: 09-20-2024 Oxygen therapy [facility] Start: 09-20-2024 [facility] Start: 09-20-2024 Patient referral to dietitian [facility] Start: 09-20-2024 [facility] Start: 01-04-2023 Influenza vaccination [facility] Start: 05-06-2022 ADVANCE DIRECTIVE DISCUSSION ADVANCE DIRECTIVE DISCUSSION [facility] Start: 09-23-2021 Referral to service [facility] Work Phone: Start: 09-23-2021 [facility] Work Phone: Start: 09-23-2021 Patient discharge [facility] Work Phone: Start: 09-22-2021 Referral to occupational therapist [facility] Work Phone: Start: 09-22-2021 Referral to service [facility] Work Phone: Start: 09-22-2021 Physiotherapy of chest [facility] Work Phone: Start: 09-22-2021 Urine culture Urine Culture [facility] Work Phone: Start: 09-21-2021 Following clinical pathway protocol [facility] Work Phone: Start: 09-21-2021 Application of intermittent pneumatic compression device [facility] Work Phone: Start: 09-21-2021 Assessment of risk of venous thromboembolism [facility] Work Phone: Start: 09-21-2021 Fall prevention [facility] Work Phone: Start: 09-21-2021 Incentive spirometry [facility] Work Phone: Start: 09-21-2021 Inhalation therapy procedure [facility] Work Phone: Start: 09-21-2021 Insertion of catheter into peripheral vein [facility] Work Phone: Start: 09-21-2021 Introduction of urinary catheter [facility] Work Phone: Start: 09-21-2021 Measuring intake and output [facility] Work Phone: Start: 09-21-2021 Oxygen therapy [facility] Work Phone: Start: 09-21-2021 Providing care according to standard [facility] Work Phone: Start: 09-21-2021 Provision of activity privileges [facility] Work Phone: Start: 09-21-2021 Referral to service [facility] Work Phone: Start: 09-21-2021 [facility] Work Phone: Start: 09-21-2021 Admission procedure [facility] Work Phone: Start: 09-21-2021 Bacteria identified in Blood by Culture Blood Culture [facility] Work Phone: Start: 09-21-2021 Respiratory Panel (PCR) Respiratory Panel (PCR) [facility] Work Phone: Start: 2010 Pneumococcal Vaccine: 65+ (1 - PCV) Pneumococcal Vaccine: 65+ (1 - PCV) [facility] Start: 2010 PNEUMOCOCCAL: 65+ (1 - PCV) PNEUMOCOCCAL: 65+ (1 - PCV) [facility] Start: 2005 RSV Vaccine (1 - 1-dose 60+ series) RSV Vaccine (1 - 1-dose 60+ series) [facility] Start: 1995 SHINGRIX VACCINE (1 of 2) SHINGRIX VACCINE (1 of 2) [facility] Start: 1990 COLOGUARD (FIT-DNA) COLOGUARD (FIT-DNA) [facility] Start: [address] COLONOGRAPHY [facility] Start: 1990 DIABETES SCREEN DIABETES SCREEN [facility] Start: 1990 Diabetes Screening Diabetes Screening [facility] Start: 1990 FECAL OCCULT BLOOD FECAL OCCULT BLOOD [facility] Start: 1990 SIGMOIDOSCOPY SIGMOIDOSCOPY [facility] Start: 1964 Urine microalbumin profile [facility] Start: 1963 HEPATITIS C SCREENING HEPATITIS C SCREENING [facility] Start: 1945 COVID-19 VACCINE (#1) COVID-19 VACCINE (#1) [facility] Cardiac event recording [facility] Hemoglobin A1c/Hemoglobin.total in Blood [facility] Magnesium measurement [facility] Patient Education [facility] Work Phone: Patient referral [facility] Work Phone: Payers Date Payer Category Payer Medicare [id number] 2024 Self-pay [id number] 2005 Private Health Insurance [facility] [employer] [id number] 2005-Present [phone] [address] [place] [address] PPO [id number] 2005 Unknown [id number] Unknown [id number] Unknown [id number] Unknown [id number] Unknown [id number] Unknown [id number] Unknown [id number] Unknown [id number] Unknown [id number] Unknown [id number] [id number] Unknown [id number] Unknown [id number] Unknown [id number] Unknown [id number] Social History Date Type Detail Facility Start: 09-21-2021 End: 11-13-2021 Tobacco smoking status [facility] Unknown if ever smoked [facility] Work Phone: Start: 05-17-2020 None [facility] Start: 05-17-2020 Spouse/ Signif icant Other [facility] Start: 09-18-2020 Non-smoker [facility] Start: 1945 Sex Assigned At Male [facility] Start: 09-24-2022 End: 09-30-2024 Tobacco smoking status NHIS Ex-smoker [facility] History of tobacco use Current smoker [facility] Start: 09-24-2022 Tobacco use and exposure User of smokeless tobacco [facility] Start: 11-08-2022 End: 11-15-2022 Alcohol intake Current drinker of alcohol (finding) [facility] Start: 09-24-2022 End: 11-15-2022 History of Social function [facility] Start: 09-24-2022 End: 11-15-2022 Tobacco use panel [facility] National Score (1-100), lower number is lower risk 55 [facility] Start: 09-24-2022 Tobacco Comment Smoked pipe ab out 15 years [facility] Start: 07-24-2021 Alcohol Comment rare beer [facility] Start: 1945 Sex Assigned At Not on file [facility] Start: 09-20-2024 Tobacco smoking status NHIS Never smoked tobacco (finding) [facility] Start: 09-30-2024 Tobacco Use Tobacco Use [facility] Goals Date Patient Goal Desired Activity /State Functional Status Date Assessment Result Facility 09-30-2024 Functional status Ambulates [facility] Work Phone: 09-23-2024 Functional status Chair [facility] Work Phone: 09-23-2021 Functional status Chair [facility] Work Phone: Mental Status Date Assessment Result Facility 09-30-2024 Cognitive function Voice/Name [facility] Work Phone: 09-23-2024 Cognitive function Awake;Alert;A ppropriate;Follow s Commands [facility] Work Phone: 09-22-2024 Cognitive function Voice/Name [facility] Work Phone: 09-23-2021 Cognitive function Voice/Name [facility] Work Phone: 09-21-2021 Cognitive function Level Of Cons ciousness Awake;Alert;Appropriate;Follow s Commands;Drowsy;Responds to vocal stimuli [facility] Work Phone: Clinical Notes 09-24-2022 to 09-30-2024 Note Date & Type Note Facility 09-30-2024 Discharge summary Note Date/Time September 30, 2024 10:39am [facility] Medical Records Department [address] [place] [address] Discharge Summary 09/30/24 0802 MR#: [id number] Acct: [id number] Name: ITZEL GOMEZ Rep #:[id number] : 1945 79 From: Pamella Zuniga DO PCP: [facility] Status:ADM [place] Location: [id number] [facility] Date of Admission: 09/23/24 Date of Discharge: 09/30/24 Primary Care Physician: [facility] Reason For Visit: DEBILITY Diagnosis Discharge Diagnosis (1) Debility: Status: Acute Code(s): R53.81 - Other malaise (2) Cerebellar stroke: Status: Acute Code(s): I63.9 - Cerebral infarction, unspecified Plan: Cryptogenic. R cerebellum. Continue ASA and Atorvastatin. Goal BP is less [id number]/80. BP in AM elevated. Lisinopril added to the drug regimen (already was on Amlodipine at admission to rehab) at [facility]. (3) Gait instability: Status: Acute Code(s): R26.81 - Unsteadiness on feet (4) Cognitive dysfunction: Status: Acute Code(s): F09 - Unspecified mental disorder due to known physiological condition (5) History of malignant carcinoid tumor: Status: Chronic Code(s): Z85.9 - Personal history of malignant neoplasm, unspecified Plan: Continue to follow up at the [place] (6) Obesity (BMI 30.0-34.9): Status: Chronic Code(s): E66.811 - Obesity, class 1 (7) Dyslipidemia: Status: Chronic Code(s): E78.5 - Hyperlipidemia, unspecified Plan: Continue Atorvastatin. Recheck a lipid panel and a liver panel in 4-6 weeks. (8) Benign essential HTN: Status: Chronic Code(s): I10 - Essential (primary) hypertension Plan: Not adequately controlled at [place] from rehab. He has LVH and stage I diastolic dysfunction so I suspect it has not been adequately controlled as OP. the BP during the day is less than 140/80 but, BP in the AM upon awakening has been ranging from 164/86 to 161/89. HR ranges from 53 -69 and he is not on anything to block the AV node so can not use a beta phuong. He was started on Lisinopril 2.5 mg at [facility] on 09/27/2024. He has a BP cuff at home and I have asked him to check a BP upon arising in the AM and a few times during the day and keepa record. He will bring the record with him to his next appt with his PCP. Goal BP is less than 140/80. Plan 1. DC home with [facility] on 09/30/24. 2. follow up with PCP and neurology 3. Recheck lipids and liver profile in 4-6 weeks. 4. Continue Atorvastatin and ASA daily. 5. He needs an event monitor. Will defer ordering this to [facility] PCP. Medications at Discharge Home Medications amlodipine 10 mg tablet 10 mg PO DAILY Blood pressure 90 days #90 tabs 09/20/20 loratadine 10 mg tablet 10 mg PO DAILY ALLERGIES 09/21/21 aspirin 81 mg tablet 81 mg PO DAILY heart health 09/20/24 colestipol 1 gram tablet 1 g PO BID cholesterol 09/20/24 escitalopram oxalate 10 mg tablet 10 mg PO DAILY depression 09/20/24 levothyroxine 25 mcg tablet (Levo-T) 25 mcg PO DAILY thyroid 09/20/24 loperamide 2 mg tablet (Diamode) 4 mg PO BID diarrhea 09/20/24 octreotide acetate 30 mg IM Q28D cancer 09/20/24 potassium chloride 20 mEq tablet,extended release 20 meq PO DAILY supplement 09/20/24 telotristat ethyl 250 mg tablet (Xermelo) 250 mg PO TID diarrhea 09/20/24 acetaminophen 325 mg tablet 650 mg PO Q6H PRN pain/fever 09/23/24 atorvastatin 40 mg tablet 40 mg PO QHS cholsterol #30 tabs 09/29/24 hydrocodone-acetaminophen 5-325mg 5mg-325mg 1 tab PO 0600,1200,1800 7 days #21 tabs 09/29/24 lisinopril 2.5 mg tablet 2.5 mg PO HS #30 tabs 09/29/24 magnesium chloride 64 mg (magnesium chloride) tablet 64 mg PO DAILY #30 tabs 09/29/24 Hospital Course Operations None Procedures 2-D Echocardiogram (ormal LV size. Mild concentric left ventricular hypertrophy.Left ventricular systolic function is normal. The left ventricular ejection fraction is 60 %. 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 He had a mechanical fall which precipitated the visit to the emergency department. He additionally complained of a headache. He actually had vertigo in the ED when attempting to move. A stat noncontrast CT brain showed no acute findings. There was generalized brain atrophy and small vessel ischemic disease. CTA of the head and neck showed mild scattered atherosclerotic calcification of the anterior and posterior intracranial and extracranial circulation without hemodynamically significant stenosis. CT scan of the abdomen and pelvis showed a nonspecific lobulated isodense lesion in the pelvis measuring up to 3.4 cm. There was a mild esophageal hiatal hernia and fecal retention in the colon consistent with constipation. He had colonic diverticulosis with no evidence ofdiverticulitis. Chest x-ray showed mild basilar atelectasis with no evidence ofpneumonia or pleural effusion. There were no acute findings. He was admitted to the hospitalist service for concern for a posterior circulation CVA. MRI of the brain done on 09/21/2024 showed an acute nonhemorrhagic infarct in the right cerebellum. There was mild to moderate nonspecific chronic white matter changesand mild generalized atrophy. Hemoglobin A1c was normal at 5.5. Total cholesterol was 175 with an LDL of 91 and an HDL of 61. Transthoracic echocardiogram showed mild concentric left ventricular hypertrophy with an EF of60%. There was stage I diastolic dysfunction. There was no significant valvular heart disease and a bubble study was not done. Teleneurology consult was obtained and daily antiplatelet medication was recommended. They also recommended starting Lipitor at 40 mg daily for an LDL of 91. He was evaluated by therapy and had an unsteady gait. He was agreeable to acute rehab at discharge and he was transferred to the acute inpatient rehab unit at [facility] in the evening on 09/23/2024 for 3 hours of therapy daily to restore function/independence at or near his level prior to the stroke. Itzel had some confusion and sundowning initially at presentation to rehab. This resolved over the next few days and he was less impulsive and more cooperative at night. He scored a 42/50 on the intial BCAT (brief cognitive assessment tool) at admission indicating mild cognitive dysfunction. Primary deficits were memory and recall. 1 day prior to discharge he was administered ahypothetical problem-solving scenario exercise and was able to provide feasible and safe solutions with 70% accuracy on that day. He had a Cognitive Log test done 1 day prior to DC and scored 25/30. Modified Morrow score at admission to rehab was 3 and it is 3 at discharge from rehab. He requires cues for hand placement on the front wheeled walker 50% of the time. He does better with a straight cane for hand placement and is contact-guard assist at the time of discharge. He is able to do 8 stands in 30 seconds using his upper extremities to rise. He is unsteady on his feet without support of the front wheeled walkerand is contact-guard assist at discharge. He is able to ascend/descend 5 steps of various heights with 1 handrail at contact-guard assist. The left lower extremity is still weak and the left knee is soft but, does not buckle. He isambulated up to 315 feet with a front wheeled walker at contact-guard assist andis able to ambulate 60 feet with a straight cane at contact-guard assist/min assist. 09/29/24 was the first day he was trialed with a [place]. He is independent with eating and supervision/set up with grooming and upper body dressing. He iscontact-guard assist for lower body dressing. He requires minimal assistance with bathing. He is contact-guard assist with toileting, toilet transfer and tub/shower transfer. BP is not adequately controlled at the time of DC from rehab. BP upon arising in the AM is consistently above goal of 140/80. He was taking amlodipine 10 mg daily at the time of the stroke. I suspect the BP was not adequately controlled as an OP since he has LVH and diastolic dysfunction. He is bradycardic in the 50's at times and he is not on any medications to block the AV node. He was started on Lisinopril 2.5 mg at . BP in the AM is still high at the time of DC from rehab. He has only had 3 doses of Lisinopril. I asked him to take his BP upon arising in the AM and a few times during the day and to record the results. He will take this record to his next appt with his PCP. Goal BP is less than 140/80. The CVA is considered cryptogenic at this time. MRI showed mild to moderate nonspecific chronic white matter changes likely secondary to small vessel ischemic change. The stroke may be related to small vessel disease but, it is important to r/o pAF. Neurology recommended a event monitor at [place] from rehab. since he is going to be following up at the [place] I have deferred ordering this test to his PCP so the results will go to someone who is going to follow up with him and can refer to cardiology if necessary. Itzel was discharged home on 09/30/24 at the request of Itzel and his . This is against my advice. His feels she can provide the assistancehe needs at home. She declined coming in for family training prior to [place]. He will have HHC at [place]. He is going to follow up with his PCP [place]. He has an appt scheduled to follow up with neurology in [place] but, he may prefer to follow up with the [place]. On PE at [place] there is a well circumscribed mass in the mid abd to the left of midline. It is NT and feels fairly superficial. He had a lot of fecal retention on the CT of the abd but, no mass mentioned. He routinely takes Imodium twice a day for short bowel S. Physical Exam Const alert, oriented x3 and no apparent distress Constitutional Narrative: Lying in bed resting when I entered the room. Aroused easily and was appropriate. Pleasant, makes good eye contact. Calm and not restless. General Appearance: cooperative and well kempt HEENT head/scalp atraumatic HEENT Narrative: Bilateral hearing aids. Tongue protrudes on the midline. Mucous membranes are somewhat dry. Eyes PERRL, EOMs intact bilaterally, conjunctivae normal and no scleral icterus Eyes Narrative: No discharge from the eyes. No mattering of the eye lashes. He has a few beats of nystagmus with extreme lateral gaze but is asymptomatic. Neck supple, No nodes and no carotid bruits General: trachea midline Chest Chest: symmetrical chest wall rise Resp Resp Narrative: Few coarse bibasilar crackles. No wheezing. Not tachypneic. No conversationaldyspnea. Normal respiratory effort. Effort and Inspection: able to speak in complete sentences Cardio regular rate, regular rhythm, S1 normal heart sound, S2 normal heart sound, no murmurs, no rub and no gallops Cardio Narrative: No ectopy GI normal to inspection, nondistended, normoactive bowel sounds, soft to palpation and non-tender GI Narrative: No guarding with palpation. There is a well circumscribed oval shaped mass in the mid abd just to the left of the midline. CT of the abd an pelvis recently did not show a mass but, did show a lot of fecal retention. The area is NT to palpation. It was not mentioned on the DC summary from the hospital or the H&P at admission to the hospital. no CVA tenderness Narrative: Postvoid residuals are all less than 10. Back/Spine straight leg raise negative bilaterally Extremity no calf tenderness and no pedal edema Extremity Narrative: No clubbing and no cyanosis. Skin Rashes: no rashes Neuro oriented x3, CN's II-XII intact bilaterally, moves all extremities, no focal motor deficits and no sensory deficits noted Neuro Narrative: No visual field cuts. Nystagmus ( a few beats with extreme lateral gaze) but, denies vertigo. no extinction. Oriented to month, year, place and knows why he has been on rehab. ess impulsive than at admission. Confusion has improved. The problems with cognition are mostly with memory and recall now. 42/50 on BCAT at admission to rehab and 25/30 on the COG LOG at DC from rehab. Psych cooperative, affect normal, speech normal, denies hallucinations, denies homicidal ideation and denies suicidal ideation Weight / BMI Weight Weight: 167 lb 6.4 oz Body Mass Index (BMI) 30.6 ABG / Lab / Microbiology Data 09/24/24 13:44 09/28/24 06:35 Indicators for Scoring Admitted with or Primary Diagnosis of CVA/Stroke: Yes Hx of CVA/Stroke: Yes Modified Jose M Score MRS Score at time of Evaluation: 3-Moderate disability NIHSS NIHSS 1a. Level of Consciousness: 0 - Alert; keenly responsive 1b. LOC Questions: 0 - Answers BOTH questions correctly 1c. LOC Commands: 0 - Performs BOTH tasks correctly 2. Best Gaze: 0 - Normal 3. Visual: 0 - No visual loss 4. Facial Palsy: 0 - Normal symmetrical movements 5a. Left Arm: 0 - No drift; arm holds 90 (or 45) degrees for full 10 seconds 5b. Right Arm: 0 - No drift; arm holds 90 (or 45) degrees for full 10 seconds 6a. Left Le - No drift; leg holds 30-degree position for full 5 seconds 6b. Right Le - No drift; leg holds 30-degree position for full 5 seconds 7. Limb Ataxia: 0 - Absent 9. Best Language: 0 - No aphasia; normal 10. Dysarthria: 0 - Normal 11. Extinction and Inattention: 0 - No abnormality Total: 0 Stroke Questions Stroke Team Activated: No D/C Instructions Discharge Diet: Low fat / Low cholesterol and - (Low-salt) Weight Bearing Status: Full weight bearing Call your doctor if you observe: Fever of 101 or Higher, Inability to urinate, Shortness of breath, Dizziness, Fainting spells, Swelling in the ankles, Chest pain, Increased palpitations (irregular heartbeat), Calf discomfort, Uncontrolled pain and - (STROKE symptoms: facial droop, slurred speech, inability to get words out, weakness on 1 side of the body and not the other, numbness on 1 side of the body and not the other, inability to maintain your balance sitting or standing, vertigo. ) DC O2, CPAP, BIPAP Needs RN Home O2 qualification: 2 No Data to Display Home O2 Discharge instructions: No Pending Tests Upon Discharge: none When: You will need to follow up with your PCP at the [facility] and should also have follow up with neurology. You should have a cardiac event monitor following discharge to rule out paroxysmal AFIB.....the [facility] can arrange this for you. Meaningful Use Info Meaningful Use Meaningful Use Diagnoses (Choose all that apply): Ischemic CVA CVA Therapy Assessed for PT,OT and/or ST?: Yes Ischemic Stroke Antithrombotic order at d/c?: Yes Dx of Atrial fib/flutter?: No Anticoagulant at discharge?: No Reason anticoagulant not ordered: Treatment not Indicated Statin Dosing Therapy Reference: STATIN DOSE THERAPY REFERENCE: * Patients > 75 years receive moderate or high dose statin therapy. * Patients 75 years or YOUNGER should receive HIGH intensity statin dose unless contraindicated. You will be required to document reason for non-treatment if statin daily dose does not meet guidelines. HIGH DOSE STATIN THERAPY DAILY Atorvastatin > than or = to 40 mg Rosuvastatin > than or = to 20 mg Amlodipine + Atorvastatin > than or = to 2.5/40 mg Ezetimibe + Simvastatin 10/80 mg Simvastatin 80mg Statins at discharge?: Yes Primary Dx Acute Ischemic CVA?: Yes IV thrombolytic ordered during stay?: No Reason IV thrombolytic not ordered: Procedure not Indicated Discharge Plan Admission Admit Date/Time: 09/23/24 18:05 Primary Reason for Your Visit: POST STROKE DEBILITY Attending Provider: Pamella Zuniga Primary Care Provider: [facility] Instructions Patient Instructions: AFib Additional Instructions / Restrictions: 1. We had to add another blood pressure pill to your drug regimen for uncontrolled high BP. The new medication is called Lisinopril and you will takethis once a day at bedtime. Your BP when you wake up in the morning is still too high at discharge. You have only had 3 doses of this medication and it is too soon to increase the dose. Your BP may change once you are home and comfortable in your own space. I recommend that you take you BP when you first get up in the AM and a few times during the day. Record the results and take this with you to your next appt with your PCP. The goal for your BP is to keep it less than 140/80. 2. You have been getting shots in the abdomen of a drug called Lovenox to help prevent blood clots in your leg. You will not be taking this at home. 3. Because of the stroke you will be taking a drug called Lipitor (also called atorvastatin) to lower your cholesterol. Recommendations for people with strokes is to keep the LDL (bad cholesterol) 70 or less. Your LDL was 91 when you presented to the hospital with stroke symptoms. Your doctor will want to recheck your cholesterol and the liver tests in 4-6 weeks. 4. The neurologist who consulted on you while you were in the hospital recommended you get a heart monitor at discharge from the hospital. Some strokes are caused by a problem with the rhythm of the heart called atrial fibrillation (also called AFIB). Some people have palpitations/racing heart/lightheadedness when they are in AFIB and others have no symptoms at all. The heart monitor will continuously monitor your heart rhythm to see if you are having any AFIB. AFIB is a risk factor for stroke and if you have AFIB you willneed to be started on an anticoagulant to help prevent additional strokes going forward. Please discuss this with your PCP so that an event monitor can be ordered. Discharge Orders/Prescriptions Prescriptions: New hydrocodone-acetaminophen 5-325 mg Tablet 1 tab PO 0600,1200,1800 7 Days Qty: 21 0RF lisinopril 2.5 mg Tablet 2.5 mg PO HS Qty: 30 0RF magnesium chloride 64 mg magnesium tablet 64 mg PO DAILY Qty: 30 0RF Continued amlodipine 10 mg Tablet 10 mg PO DAILY 90 Days Qty: 90 0RF loratadine 10 mg Tablet 10 mg PO DAILY octreotide acetate 30 mg suspension 30 mg IM Q28D Patient Comments: colestipol 1 gram tablet 1 g PO BID Patient Comments: RX SIG STATES 2QD, PT CAN ONLY TOLERATE 1QD Xermelo 250 mg tablet 250 mg PO TID Rx Instructions: must administer with a meal/food loperamide [Diamode] 2 mg tablet 4 mg PO BID levothyroxine [Levo-T] 25 mcg tablet 25 mcg PO DAILY aspirin 81 mg tablet 81 mg PO DAILY escitalopram oxalate 10 mg tablet 10 mg PO DAILY potassium chloride 20 mEq tablet extended release 20 meq PO DAILY acetaminophen 325 mg tablet 650 mg PO Q6H PRN (Reason: pain/fever) atorvastatin 40 mg Tablet 40 mg PO QHS Qty: 30 0RF Rx Instructions: Take this medication at bedtime Discontinued enoxaparin 40 mg/0.4 mL Syringe 40 mg subcut DAILY Qty: 0 0RF Ensure Plus High Protein 0.08 gram-1.5 kcal/mL Liquid 120 ml PO TIDCM Qty: 0 0RF Referrals / Follow Up: Brenda Torres NP-C [Med Staff - Adv Practice Prof] - 10/08/24 9:00 am Miryam Hines NP-C [Non-Staff] - 10/14/24 2:00 pm Disposition Disposition (needs filled in before D/C Order can be placed): Home Health Service Charges/Coding Visit Charges Inpatient E&M: 04655 Disch Hosp 09/30/24 1033 <Electronically signed by Pamella Zuniga DO> Cosigner Signature (if applicable): CC: SMITH Torres; Dr. Pamella Zuniga DO; [facility]~ Signed [facility] Work Phone: [phone] Discharge summary [facility] Medical Records Department [address] [place] [address] Discharge Summary 09/30/24 0802 MR#: [id number] Acct: [id number] Name: ITZEL GOMEZ Rep #:[id number] : 1945 79 From: Pamella Zuniga DO PCP: [facility] Hospital Status:ADM IN Location: [place] [address] Providers Date of Admission: 09/23/24 Date of Discharge: 09/30/24 Primary Care Physician: [facility] Reason For Visit: DEBILITY Diagnosis Discharge Diagnosis (1) Debility: Status: Acute Code(s): R53.81 - Other malaise (2) Cerebellar stroke: Status: Acute Code(s): I63.9 - Cerebral infarction, unspecified Plan: Cryptogenic. R cerebellum. Continue ASA and Atorvastatin. Goal BP is less [id number]. BP in AM elevated. Lisinopril added to the drug regimen (already was on Amlodipine at admission to rehab) at . (3) Gait instability: Status: Acute Code(s): R26.81 - Unsteadiness on feet (4) Cognitive dysfunction: Status: Acute Code(s): F09 - Unspecified mental disorder due to known physiological condition (5) History of malignant carcinoid tumor: Status: Chronic Code(s): Z85.9 - Personal history of malignant neoplasm, unspecified Plan: Continue to follow up at the [place] (6) Obesity (BMI 30.0-34.9): Status: Chronic Code(s): E66.811 - Obesity, class 1 (7) Dyslipidemia: Status: Chronic Code(s): E78.5 - Hyperlipidemia, unspecified Plan: Continue Atorvastatin. Recheck a lipid panel and a liver panel in 4-6 weeks. (8) Benign essential HTN: Status: Chronic Code(s): I10 - Essential (primary) hypertension Plan: Not adequately controlled at [place] from rehab. He has LVH and stage I diastolic dysfunction so I suspect it has not been adequately controlled as OP. the BP during the day is less than 140/80 but, BP inthe AM upon awakening has been ranging from 164/86 to 161/89. HR ranges from 53 -69 and he is not on anything to block the AV node so can not use a beta phuong. He was started on Lisinopril 2.5 mg at [facility] on 09/27/2024. He has a BP cuff at home and I have asked him to check a BP upon arising in the AM and a few times during the day and keepa record. He will bring the record with him to his next appt with his PCP. Goal BP is less than 140/80. Plan 1. DC home with [facility] on 09/30/24. 2. follow up with PCP and neurology 3. Recheck lipids and liver profile in 4-6 weeks. 4. Continue Atorvastatin and ASA daily. 5. He needs an event monitor. Will defer ordering this to [facility] PCP. Medications at Discharge Home Medications amlodipine 10 mg tablet 10 mg PO DAILY Blood pressure 90 days #90 tabs 09/20/20 loratadine 10 mg tablet 10 mg PO DAILY ALLERGIES 09/21/21 aspirin 81 mg tablet 81 mg PO DAILY heart health 09/20/24 colestipol 1 gram tablet 1 g PO BID cholesterol 09/20/24 escitalopram oxalate 10 mg tablet 10 mg PO DAILY depression 09/20/24 levothyroxine 25 mcg tablet (Levo-T) 25 mcg PO DAILY thyroid 09/20/24 loperamide 2 mg tablet (Diamode) 4 mg PO BID diarrhea 09/20/24 octreotide acetate 30 mg IM Q28D cancer 09/20/24 potassium chloride 20 mEq tablet,extended release 20 meq PO DAILY supplement 09/20/24 telotristat ethyl 250 mg tablet (Xermelo) 250 mg PO TID diarrhea 09/20/24 acetaminophen 325 mg tablet 650 mg PO Q6H PRN pain/fever 09/23/24 atorvastatin 40 mg tablet 40 mg PO QHS cholsterol #30 tabs 09/29/24 hydrocodone-acetaminophen 5-325mg 5mg-325mg 1 tab PO 0600,1200,1800 7 days #21 tabs 09/29/24 lisinopril 2.5 mg tablet 2.5 mg PO HS #30 tabs 09/29/24 magnesium chloride 64 mg (magnesium chloride) tablet 64 mg PO DAILY #30 tabs 09/29/24 Hospital Course Operations None Procedures 2-D Echocardiogram (ormal LV size. Mild concentric left ventricular hypertrophy.Left ventricular systolic function is normal. The left ventricular ejection fraction is 60 %. 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 He had a mechanical fall which precipitated the visit tot emergency department. He additionally complained of a headache. He actually had vertigo in the ED when attempting to move. A stat noncontrast CT brain showed no acute findings. There was generalized brain atrophy and small vessel ischemic disease. CTA of the head and neck showed mild scattered atherosclerotic calcification of the anterior and posterior intracranial and extracranial circulation without hemodynamically significant stenosis. CT scan of the abdomen and pelvis showed a nonspecific lobulated isodense lesion in the pelvis measuring up to 3.4 cm. There was a mild esophageal hiatal hernia and fecal retention in the colon consistent with constipation. He had colonic diverticulosis with no evidence ofdiverticulitis. Chest x-ray showed mild basilar atelectasis with no evidence ofpneumonia or pleural effusion. There were no acute findings. He was admitted to the hospitalist service for concern for a posterior circulation CVA. MRI of the brain done on 09/21/2024 showed an acute nonhemorrhagic infarct in the right cerebellum. There was mild to moderate nonspecific chronic whitematter changesand mild generalized atrophy. Hemoglobin A1c was normal at 5.5. Total cholesterol [id number] with an LDL of 91 and an HDL of 61. Transthoracic echocardiogram showed mild concentric left ventricular hypertrophy with an EF of60%. There was stage I diastolic dysfunction. There was no significant valvular heart disease and a bubble study was not done. Teleneurology consult was obtained anddaily antiplatelet medication was recommended. They also recommended starting Lipitor at 40 mg daily for an LDL of 91. He was evaluated by therapy and had an unsteady gait. He was agreeable to acute rehab at discharge and he was transferred to the acute inpatient rehab unit at [facility] in the evening on 09/23/2024 for 3 hours of therapy daily to restore function/independence at or near his level prior to the stroke. Itzel had some confusion and sundowning initially at presentation to rehab. This resolved over the next few days and he was less impulsive and more cooperative at night. He scored a 42/50 on the intial BCAT (brief cognitive assessment tool) at admission indicating mild cognitive dysfunction. Primary deficits were memory and recall. 1 day prior to discharge he was administered ahypothetical problem-solving scenario exercise and was able to provide feasible and safe solutions with 70% accuracy on that day. He had a Cognitive Log test done 1 day prior to DC and scored 25/30. Modified Morrow score at admission to rehab was 3 and it is 3 at discharge from rehab. He requires cues for hand placement on the front wheeled walker 50% of the time. He does better with a straight cane for hand placement and is contact-guard assist at the time of discharge. He is able to do 8 stands in 30 seconds using his upper extremities to rise. He is unsteady on his feet without support of the front wheeled w alkerand is contact-guard assist at discharge. He is able to ascend/descend 5 steps of various heights with 1 handrail at contact-guard assist. The left lower extremity is still weak and the left knee is soft but, does not buckle. He isambulated up to 315 feet with a front wheeled walker at contact-guard assist andis able to ambulate 60 feet with a straight cane at contact-guard assist/min assist. 09/29/24 was the first day he was trialed with a SC. He is independent with eating and supervision/set up with grooming and upper body dressing. He iscontact-guard assist for lower body dressing. He requires minimal assistance with bathing. He is contact-guard assist with toileting, toilet transfer and tub/shower transfer. BP is not adequately controlled at the time of DC from rehab. BP upon arising in the AM is consistently above goal of 140/80. He was taking amlodipine 10 mg daily at the time of the stroke. I suspectthe BP was not adequately controlled as an OP since he has LVH and diastolic dysfunction. He is bradycardic in the 50's at times and he is not on any medications to block the AV node. He was started on Lisinopril 2.5 mg at . BP in the AM is still high at the time of DC from rehab. He has only had3 doses of Lisinopril. I asked him to take his BP upon arising in the AM and a few times during theday and to record the results. He will take this record to his next appt with his PCP. Goal BP is less than 140/80. The CVA is considered cryptogenic at this time. MRI showed mild to moderate nonspecific chronic white matter changes likely secondary to small vessel ischemic change. The stroke may be related to small vessel disease but, it is important to r/o pAF. Neurology recommended a event monitor at [place] from rehab. since he is going to be following up at the [place] I have deferred ordering this test to his PCP so the results will go to someone who is going to follow up with him and can refer to cardiology if necessary. Itzel was discharged home on 09/30/24 at the request of Itzel and his . This is against my advice. His feels she can provide the assistancehe needs at home. She declined coming in for family training prior to ND. He will have HHC at ND. He is going to follow up with his PCP at [facility]. He has an appt scheduled to follow up with neurology in [place] but, he may prefer to follow up with the [facility]. On PE at ND there is a well circumscribed mass in the mid abd to the left of midline. It is NT and feels fairly superficial. He had a lot of fecal retention on the CT of the abd but, no mass mentioned. He routinely takes Imodium twice a day for short bowel S. Physical Exam Const alert, oriented x3 and no apparent distress Constitutional Narrative: Lying in bed resting when I entered the room. Aroused easily and was appropriate. Pleasant, makes good eye contact. Calm and not restless. General Appearance: cooperative and well kempt HEENT head/scalp atraumatic HEENT Narrative: Bilateral hearing aids. Tongue protrudes on the midline. Mucous membranes are somewhat dry. Eyes PERRL, EOMs intact bilaterally, conjunctivae normal and no scleral icterus Eyes Narrative: No discharge from the eyes. No mattering of the eye lashes. He has a few beats of nystagmus with extreme lateral gaze but is asymptomatic. Neck supple, No nodes and no carotid bruits General: trachea midline Chest Chest: symmetrical chest wall rise Resp Resp Narrative: Few coarse bibasilar crackles. No wheezing. Not tachypneic. No conversationaldyspnea. Normal respiratory effort. Effort and Inspection: able to speak in complete sentences Cardio regular rate, regular rhythm, S1 normal heart sound, S2 normal heart sound, no murmurs, no rub and no gallops Cardio Narrative: No ectopy GI normal to inspection, nondistended, normoactive bowel sounds, soft to palpation and non-tender GI Narrative: No guarding with palpation. There is a well circumscribed oval shaped mass in the mid abd just to the left of the midline. CT of the abd an pelvis recently did not show a mass but, did show a lot of fecal retention. The area is NT to palpation. It was not mentioned on the DC summary from the hospital or the H&P at admission to the hospital. no CVA tenderness Narrative: Postvoid residuals are all less than 10. Back/Spine straight leg raise negative bilaterally Extremity no calf tenderness and no pedal edema Extremity Narrative: No clubbing and no cyanosis. Skin Rashes: no rashes Neuro oriented x3, CN's II-XII intact bilaterally, moves all extremities, no focal motor deficits and no sensory deficits noted Neuro Narrative: No visual field cuts. Nystagmus ( a few beats with extreme lateral gaze) but, denies vertigo. no extinction. Oriented to month, year, place and knows why he has been on rehab. ess impulsive than at admission. Confusion has improved. The problems with cognition are mostly with memory and recall now.42/50 on BCAT at admission to rehab and 25/30 on the COG LOG at DC from rehab. Psych cooperative, affect normal, speech normal, denies hallucinations, denies homicidal ideation and denies suicidal ideation Weight / BMI Weight Weight: 167 lb 6.4 oz Body Mass Index (BMI) 30.6 ABG / Lab / Microbiology Data 09/24/24 13:44 09/28/24 06:35 Indicators for Scoring Admitted with or Primary Diagnosis of CVA/Stroke: Yes Hx of CVA/Stroke: Yes Modified Morrow Score MRS Score at time of Evaluation: 3-Moderate disability NIHSS NIHSS 1a. Level of Consciousness: 0 - Alert; keenly responsive 1b. LOC Questions: 0 - Answers BOTH questions correctly 1c. LOC Commands: 0 - Performs BOTH tasks correctly 2. Best Gaze: 0 - Normal 3. Visual: 0 - No visual loss 4. Facial Palsy: 0 - Normal symmetrical movements 5a. Left Arm: 0 - No drift; arm holds 90 (or 45) degrees for full 10 seconds 5b. Right Arm: 0 - No drift; arm holds 90 (or 45) degrees for full 10 seconds 6a. Left Le - No drift; leg holds 30-degree position for full 5 seconds 6b. Right Le - No drift; leg holds 30-degree position for full 5 seconds 7. Limb Ataxia: 0 - Absent 9. Best Language: 0 - No aphasia; normal 10. Dysarthria: 0 - Normal 11. Extinction and Inattention: 0 - No abnormality Total: 0 Stroke Questions Stroke Team Activated: No D/C Instructions Discharge Diet: Low fat / Low cholesterol and - (Low-salt) Weight Bearing Status: Full weight bearing Call your doctor if you observe: Fever of 101 or Higher, Inability to urinate, Shortness of breath,Dizziness, Fainting spells, Swelling in the ankles, Chest pain, Increased palpitations (irregular heartbeat), Calf discomfort, Uncontrolled pain and - (STROKE symptoms: facial droop, slurred speech, i nability to get words out, weakness on 1 side of the body and not the other, numbness on 1 side of the body and not the other, inability to maintain your balance sitting or standing, vertigo. ) DC O2, CPAP, BIPAP Needs RN Home O2 qualification: 2 No Data to Display Home O2 Discharge instructions: No Pending Tests Upon Discharge: none When: You will need to follow up with your PCP at the [place] and should also have follow up with neurology. You should have a cardiac event monitor following discharge to rule out paroxysmal AFIB.....[facility]. Meaningful Use Info Meaningful Use Meaningful Use Diagnoses (Choose all that apply): Ischemic CVA CVA Therapy Assessed for PT,OT and/or ST?: Yes Ischemic Stroke Antithrombotic order at d/c?: Yes Dx of Atrial fib/flutter?: No Anticoagulant at discharge?: No Reason anticoagulant not ordered: Treatment not Indicated Statin Dosing Therapy Reference: STATIN DOSE THERAPY REFERENCE: * Patients > 75 years receive moderate or high dose statin therapy. * Patients 75 years or YOUNGER should receive HIGH intensity statin dose unless contraindicated. You will be required to document reason for non-treatment if statin daily dose does not meet guidelines. HIGH DOSE STATIN THERAPY DAILY Atorvastatin > than or = to 40 mg Rosuvastatin > than or = to 20 mg Amlodipine + Atorvastatin > than or = to 2.5/40 mg Ezetimibe + Simvastatin 10/80 mg Simvastatin 80mg Statins at discharge?: Yes Primary Dx Acute Ischemic CVA?: Yes IV thrombolytic ordered during stay?: No Reason IV thrombolytic not ordered: Procedure not Indicated Discharge Plan Admission Admit Date/Time: 09/23/24 18:05 Primary Reason for Your Visit: POST STROKE DEBILITY Attending Provider: Pamella Zuniga [facility] Patient Instructions: AFib Additional Instructions / Restrictions: 1. We had to add another blood pressure pill to your drug regimen for uncontrolled high BP. The newmedication is called Lisinopril and you will takethis once a day at bedtime. Your BP when you wake up in the morning is still too high at discharge. You have only had 3 doses of this medication and it is too soon to increase the dose. Your BP may change once you are home and comfortable in your ownspace. I recommend that you take you BP when you first get up in the AM and a few times during the day. Record the results and take this with you to your next appt with your PCP. The goal for your BPis to keep it less than 140/80. 2. You have been getting shots in the abdomen of a drug called Lovenox to help prevent blood clots in your leg. You will not be taking this at home. 3. Because of the stroke you will be taking a drug called Lipitor (also called atorvastatin) to lower your cholesterol. Recommendations for people with strokes is to keep the LDL (bad cholesterol) 70or less. Your LDL was 91 when you presented to the hospital with stroke symptoms. Your doctor will want to recheck your cholesterol and the liver tests in 4-6 weeks. 4. The neurologist who consulted on you while you were in the hospital recommended you get a heart monitor at discharge from the hospital. Some strokes are caused by a problem with the rhythm of the heart called atrial fibrillation (also called AFIB). Some people have palpitations/racing heart/lightheadedness when they are in AFIB and others have no symptoms at all. The heart monitor will continuously monitor your heart rhythm to see if you are having any AFIB. AFIB is a risk factor for stroke and if you have AFIB you willneed to be started on an anticoagulant to help prevent additional strokes going forward. Please discuss this with your PCP so that an event monitor can be ordered. Discharge Orders/Prescriptions Prescriptions: New hydrocodone-acetaminophen 5-325 mg Tablet 1 tab PO 0600,1200,1800 7 Days Qty: 21 0RF lisinopril 2.5 mg Tablet 2.5 mg PO HS Qty: 30 0RF magnesium chloride 64 mg magnesium tablet 64 mg PO DAILY Qty: 30 0RF Continued amlodipine 10 mg Tablet 10 mg PO DAILY 90 Days Qty: 90 0RF loratadine 10 mg Tablet 10 mg PO DAILY octreotide acetate 30 mg suspension 30 mg IM Q28D Patient Comments: colestipol 1 gram tablet 1 g PO BID Patient Comments: RX SIG STATES 2QD, PT CAN ONLY TOLERATE 1QD Xermelo 250 mg tablet 250 mg PO TID Rx Instructions: must administer with a meal/food loperamide [Diamode] 2 mg tablet 4 mg PO BID levothyroxine [Levo-T] 25 mcg tablet 25 mcg PO DAILY aspirin 81 mg tablet 81 mg PO DAILY escitalopram oxalate 10 mg tablet 10 mg PO DAILY potassium chloride 20 mEq tablet extended release 20 meq PO DAILY acetaminophen 325 mg tablet 650 mg PO Q6H PRN (Reason: pain/fever) atorvastatin 40 mg Tablet 40 mg PO QHS Qty: 30 0RF Rx Instructions: Take this medication at bedtime Discontinued enoxaparin 40 mg/0.4 mL Syringe 40 mg subcut DAILY Qty: 0 0RF Ensure Plus High Protein 0.08 gram-1.5 kcal/mL Liquid 120 ml PO TIDCM Qty: 0 0RF Referrals / Follow Up: Brenda Torres NP-C [Med Staff - [facility] Practice Prof] - 10/08/24 9:00 am Miryam Hines NP-C [Non-Staff] - 10/14/24 2:00 pm Disposition Disposition (needs filled in before D/C Order can be placed): Home Health Service Charges/Coding Visit Charges Inpatient E&M: 72360 Disch Hosp 09/30/24 1034 Cosigner Signature (if applicable): CC: SMITH Torres; Dr. Pamella Zuniga, DO; [facility]~ Signed [facility]05-28-2025 Discharge summary Author Pamella Zuniga [facility] Note Date/Time September 30, 2024 8:02a m [facility] Medical Records Department [address] [place] [address] Instructions for Home/Discharge Instructions 09/29/24 1445 MR#: [id number] Acct: [id number] Name: TIZEL GOMEZ Rep #:[id number] : 1945 79 From: Pamella Zuniga DO PCP: [facility] Status:ADM IN Discharge Instructions Diet Discharge Diet: Low fat / Low cholesterol and - (Low-salt) DC O2, CPAP, BIPAP needs Home O2 Discharge instructions: No Dressing / Incision Discharge Activity: May Not Drive and Use Walker (Or a cane. Therapy has been having a hand on him with wmbulation and a gait belt. Currently contact guard assist. ) Weight Bearing Status: Full weight bearing Dressing / Incision Call your doctor if you observe: Fever of 101 or Higher, Inability to urinate, Shortness of breath, Dizziness, Fainting spells, Swelling in the ankles, Chest pain, Increased palpitations (irregular heartbeat), Calf discomfort, Uncontrolled pain and - (STROKE symptoms: facial droop, slurred speech, inability to get words out, weakness on 1 side of the body and not the other, numbness on 1 side of the body and not the other, inability to maintain your balance sitting or standing, vertigo. ) Follow Up Care When: You will need to follow up with your PCP at the [facility] and should also have follow up with neurology. You should have a cardiac event monitor following discharge to rule out paroxysmal AFIB.....the [facility] can arrange this for you. Test Results: Test results from this visit will be discussed in further detail at your follow- up appointment, if applicable. Pending Tests Upon Discharge: none Discharge Plan Admission Admit Date/Time: 09/23/24 18:05 Primary Reason for Your Visit: POST STROKE DEBILITY Attending Provider: Pamella Zuniga Primary Care Provider[facility] Instructions Patient Instructions: AFib Additional Instructions / Restrictions: 1. We had to add another blood pressure pill to your drug regimen for uncontrolled high BP. The new medication is called Lisinopril and you will takethis once a day at bedtime. 2. You have been getting shots in the abdomen of a drug called Lovenox to help prevent blood clots in your leg. You will not be taking this at home. 3. Because of the stroke you will be taking a drug called Lipitor (also called atorvastatin) to lower your cholesterol. Recommendations for people with strokes is to keep the LDL (bad cholesterol) 70 or less. Your LDL was 91 when you presented to the hospital with stroke symptoms. Your doctor will want to recheck your cholesterol and the liver tests in 4-6 weeks. 4. The neurologist who consulted on you while you were in the hospital recommended you get a heart monitor at discharge from the hospital. Some strokes are caused by a problem with the rhythm of the heart called atrial fibrillation (also called AFIB). Some people have palpitations/racing heart/lightheadedness when they are in AFIB and others have no symptoms at all. The heart monitor will continuously monitor your heart rhythm to see if you are having any AFIB. AFIB is a risk factor for stroke and if you have AFIB you willneed to be started on an anticoagulant to help prevent additional strokes going forward. Discharge Orders/Prescriptions Prescriptions: New hydrocodone-acetaminophen 5-325 mg Tablet 1 tab PO 0600,1200,1800 7 Days Qty: 21 0RF lisinopril 2.5 mg Tablet 2.5 mg PO HS Qty: 30 0RF magnesium chloride 64 mg magnesium tablet 64 mg PO DAILY Qty: 30 0RF Continued amlodipine 10 mg Tablet 10 mg PO DAILY 90 Days Qty: 90 0RF loratadine 10 mg Tablet 10 mg PO DAILY octreotide acetate 30 mg suspension 30 mg IM Q28D Patient Comments: colestipol 1 gram tablet 1 g PO BID Patient Comments: RX SIG STATES 2QD, PT CAN ONLY TOLERATE 1QD Xermelo 250 mg tablet 250 mg PO TID Rx Instructions: must administer with a meal/food loperamide [Diamode] 2 mg tablet 4 mg PO BID levothyroxine [Levo-T] 25 mcg tablet 25 mcg PO DAILY aspirin 81 mg tablet 81 mg PO DAILY escitalopram oxalate 10 mg tablet 10 mg PO DAILY potassium chloride 20 mEq tablet extended release 20 meq PO DAILY acetaminophen 325 mg tablet 650 mg PO Q6H PRN (Reason: pain/fever) atorvastatin 40 mg Tablet 40 mg PO QHS Qty: 30 0RF Rx Instructions: Take this medication at bedtime Discontinued enoxaparin 40 mg/0.4 mL Syringe 40 mg subcut DAILY Qty: 0 0RF Ensure Plus High Protein 0.08 gram-1.5 kcal/mL Liquid 120 ml PO TIDCM Qty: 0 0RF Referrals / Follow Up: Brenda Torres NP-C [Med Staff - Adv Practice Prof] - 10/08/24 9:00 am Miryam Hines NP-C [Non-Staff] - 10/14/24 2:00 pm Disposition Disposition (needs filled in before D/C Order can be placed): Home Health Service 09/30/24 0802<Electronically signed by Pamella Zuniga DO>Pamella Zuniga DO CC: [facility] ~ Signed [facility] Work Phone: 1(379) 750-576105-28-2025 Discharge summary [facility] Medical Records Department [address] [place] [address] Instructions for Home/Discharge Instructions 09/29/24 1445 MR#: [id number] Acct: [id number] Name: ITZEL GOMEZ Rep #:[id number] : 1945 79 From: Pamella Zuniga DO PCP: [facility] Status:ADM IN Discharge Instructions Diet Discharge Diet: Low fat / Low cholesterol and - (Low-salt) DC O2, CPAP, BIPAP needs Home O2 Discharge instructions: No Dressing / Incision Discharge Activity: May Not Drive and Use Walker (Or a cane. Therapy has been having a hand on him with wmbulation and a gait belt. Currently contact guard assist. ) Weight Bearing Status: Full weight bearing Dressing / Incision Call your doctor if you observe: Fever of 101 or Higher, Inability to urinate, Shortness of breath,Dizziness, Fainting spells, Swelling in the ankles, Chest pain, Increased palpitations (irregular heartbeat), Calf discomfort, Uncontrolled pain and - (STROKE symptoms: facial droop, slurred speech, i nability to get words out, weakness on 1 side of the body and not the other, numbness on 1 side of the body and not the other, inability to maintain your balance sitting or standing, vertigo. ) Follow Up Care When: You will need to follow up with your PCP at the [facility] and should also have follow up with neurology. You should have a cardiac event monitor following discharge to rule out paroxysmal AFIB.....[facility]. Test Results: Test results from this visit will be discussed in further detail at your follow- up appointment, if applicable. Pending Tests Upon Discharge: none Discharge Plan Admission Admit Date/Time: 09/23/24 18:05 Primary Reason for Your Visit: POST STROKE DEBILITY Attending Provider: Pamella Zuniga [facility] Instructions Patient Instructions: AFib Additional Instructions / Restrictions: 1. We had to add another blood pressure pill to your drug regimen for uncontrolled high BP. The newmedication is called Lisinopril and you will takethis once a day at bedtime. 2. You have been getting shots in the abdomen of a drug called Lovenox to help prevent blood clots in your leg. You will not be taking this at home. 3. Because of the stroke you will be taking a drug called Lipitor (also called atorvastatin) to lower your cholesterol. Recommendations for people with strokes is to keep the LDL (bad cholesterol) 70or less. Your LDL was 91 when you presented to the hospital with stroke symptoms. Your doctor will want to recheck your cholesterol and the liver tests in 4-6 weeks. 4. The neurologist who consulted on you while you were in the hospital recommended you get a heart monitor at discharge from the hospital. Some strokes are caused by a problem with the rhythm of the heart called atrial fibrillation (also called AFIB). Some people have palpitations/racing heart/lightheadedness when they are in AFIB and others have no symptoms at all. The heart monitor will continuously monitor your heart rhythm to see if you are having any AFIB. AFIB is a risk factor for stroke and if you have AFIB you willneed to be started on an anticoagulant to help prevent additional strokes going forward. Discharge Orders/Prescriptions Prescriptions: New hydrocodone-acetaminophen 5-325 mg Tablet 1 tab PO 0600,1200,1800 7 Days Qty: 21 0RF lisinopril 2.5 mg Tablet 2.5 mg PO HS Qty: 30 0RF magnesium chloride 64 mg magnesium tablet 64 mg PO DAILY Qty: 30 0RF Continued amlodipine 10 mg Tablet 10 mg PO DAILY 90 Days Qty: 90 0RF loratadine 10 mg Tablet 10 mg PO DAILY octreotide acetate 30 mg suspension 30 mg IM Q28D Patient Comments: colestipol 1 gram tablet 1 g PO BID Patient Comments: RX SIG STATES 2QD, PT CAN ONLY TOLERATE 1QD Xermelo 250 mg tablet 250 mg PO TID Rx Instructions: must administer with a meal/food loperamide [Diamode] 2 mg tablet 4 mg PO BID levothyroxine [Levo-T] 25 mcg tablet 25 mcg PO DAILY aspirin 81 mg tablet 81 mg PO DAILY escitalopram oxalate 10 mg tablet 10 mg PO DAILY potassium chloride 20 mEq tablet extended release 20 meq PO DAILY acetaminophen 325 mg tablet 650 mg PO Q6H PRN (Reason: pain/fever) atorvastatin 40 mg Tablet 40 mg PO QHS Qty: 30 0RF Rx Instructions: Take this medication at bedtime Discontinued enoxaparin 40 mg/0.4 mL Syringe 40 mg subcut DAILY Qty: 0 0RF Ensure Plus High Protein 0.08 gram-1.5 kcal/mL Liquid 120 ml PO TIDCM Qty: 0 0RF Referrals / Follow Up: Brenda Torres NP-C [Med Staff - Adv Practice Prof] - 10/08/24 9:00 am Miryam Hines NP-C [Non-Staff] - 10/14/24 2:00 pm Disposition Disposition (needs filled in before D/C Order can be placed): Home Health Service 09/30/24 0802Pamella Zuniga DO CC: [facility] ~ [facility]05-28-2025 [facility] Medical Records Department [address] [place] [address] Discharge Summary 09/30/24 0802 MR#: [id number] Acct: [id number] Name: ITZEL GOMEZ Rep #: [id number] : 1945 79 From: Pamella Zuniga DO PCP: [facility] Status:ADM IN Location: [place] [address] Providers Date of Admission: 09/23/24 Date of Discharge: 09/30/24 Primary Care Physician: [facility] Reason For Visit: DEBILITY Diagnosis Discharge Diagnosis (1) Debility: Status: Acute Code(s): R53.81 - Other malaise (2) Cerebellar stroke: Status: Acute Code(s): I63.9 - Cerebral infarction, unspecified Plan: Cryptogenic. R cerebellum. Continue ASA and Atorvastatin. Goal BP is less than 140/80. BP in AM elevated. Lisinopril added to the drug regimen (already was on Amlodipine at admission to rehab) at . (3) Gait instability: Status: Acute Code(s): R26.81 - Unsteadiness on feet (4) Cognitive dysfunction: Status: Acute Code(s): F09 - Unspecified mental disorder due to known physiological condition (5) History of malignant carcinoid tumor: Status: Chronic Code(s): Z85.9 - Personal history of malignant neoplasm, unspecified Plan: Continue to follow up at the [facility] (6) Obesity (BMI 30.0-34.9): Status: Chronic Code(s): E66.811 - Obesity, class 1 (7) Dyslipidemia: Status: Chronic Code(s): E78.5 - Hyperlipidemia, unspecified Plan: Continue Atorvastatin. Recheck a lipid panel and a liver panel in 4-6 weeks. (8) Benign essential HTN: Status: Chronic Code(s): I10 - Essential (primary) hypertension Plan: Not adequately controlled at [place] from rehab. He has LVH and stage I diastolic dysfunction so I suspect it has not been adequately controlled as OP. the BP during the day is less than 140/80 but, BP in the AM upon awakening has been ranging from 164/86 to 161/89. HR ranges from 53 -69 and he is not on anything to block the AV node so can not use a beta phuong. He was started on Lisinopril 2.5 mg at on 09/27/2024. He has a BP cuff at home and I have asked him to check a BP upon arising in the AM and a few times during the day and keep a record. He will bring the record with him to his next appt with his PCP. Goal BP is less than 140/80. Plan 1. DC home with [facility] on 09/30/24. 2. follow up with PCP and neurology 3. Recheck lipids and liver profile in 4-6 weeks. 4. Continue Atorvastatin and ASA daily. 5. He needs an event monitor. Will defer ordering this to [facility] PCP. Medications at Discharge Home Medications amlodipine 10 mg tablet 10 mg PO DAILY Blood pressure 90 days #90 tabs 09/20/20 loratadine 10 mg tablet 10 mg PO DAILY ALLERGIES 09/21/21 aspirin 81 mg tablet 81 mg PO DAILY heart health 09/20/24 colestipol 1 gram tablet 1 g PO BID cholesterol 09/20/24 escitalopram oxalate 10 mg tablet 10 mg PO DAILY depression 09/20/24 levothyroxine 25 mcg tablet (Levo-T) 25 mcg PO DAILY thyroid 09/20/24 loperamide 2 mg tablet (Diamode) 4 mg PO BID diarrhea 09/20/24 octreotide acetate 30 mg IM Q28D cancer 09/20/24 potassium chloride 20 mEq tablet,extended release 20 meq PO DAILY supplement 09/20/24 telotristat ethyl 250 mg tablet (Xermelo) 250 mg PO TID diarrhea 09/20/24 acetaminophen 325 mg tablet 650 mg PO Q6H PRN pain/fever 09/23/24 atorvastatin 40 mg tablet 40 mg PO QHS cholsterol #30 tabs 09/29/24 hydrocodone-acetaminophen 5-325mg 5mg-325mg 1 tab PO 0600,1200,1800 7 days #21 tabs 09/29/24 lisinopril 2.5 mg tablet 2.5 mg PO HS #30 tabs 09/29/24 magnesium chloride 64 mg (magnesium chloride) tablet 64 mg PO DAILY #30 tabs 09/29/24 Hospital Course Operations None Procedures 2-D Echocardiogram (ormal LV size. Mild concentric left ventricular hypertrophy. Left ventricular systolic function is normal. The left ventricular ejection fraction is 60 %. 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 He had a mechanical fall which precipitated the visit to the emergency department. He additionally complained of a headache. He actually had vertigo in the ED when attempting to move. A stat noncontrast CT brain showed no acute findings. There was generalized brain atrophy and small vessel ischemic disease. CTA of the head and neck showed mild scattered atherosclerotic calcification of the anterior and posterior intracr (more content not included)...[facility] 09-29-2024 Progress note Author Pamella Zuniga [facility] Note Date/Time September 29, 2024 3:24p m [facility] Medical Records Department [address] [place] [address] Progress Note 09/29/24 1251 MR#: [id number] Acct: [id number] Name: ITZEL GOMEZ Rep #:[id number] : 1945 79 From: Pamella Zuniga DO PCP: [facility] Status:ADM IN Location: [place] [address] Subjective Subjective Itzel was seen on team rounds today. His was present in the room. All questions were answered to their satisfaction. Afebrile VSS -blood pressure since Saturday has ranged from 134/72 to 174/83. BP is mostly controlled with occasional elevation.......mostly in the morning when he is awakening. Heart rate has ranged from 53-80. Orthostatics were negative today. He denied lightheadedness. Maintaining appropriate oxygen saturation on RA Oral intake - FOOD variable but mostly good. FLUIDS good Discussed with nursing - no problems that need addressed. Was not impulsive last night and slept well. Reviewed the THERAPY notes Medication list reviewed. All recent lab was personally reviewed. The sodium is 140 and the potassium is 4.1. The BUN is 23 with a creatinine of 1.64 which is within his baseline. Phosphorus is now normal without supplementation. Calcium is within normal limits. Objective Data Objective Data Vital Signs: Vital Signs Temp Pulse Resp BP Pulse Ox O2 Del Method 97.8 F 53 L 15 174/83 H 96 Room Air 09/29/24 06:00 09/29/24 06:00 09/29/24 06:00 09/29/24 06:00 09/29/24 06:00 09/29/24 06:00 Oxygen Delivery Method Room Air Weight: 167 lb 6.4 oz Body Mass Index (BMI) 30.6 Intake & Output: Intake and Output for Last 24 Hours 09/27/24 09/28/24 09/29/24 23:59 23:59 23:59 Intake Total 1380 / 1380 1545 / 1545 400 / 400 Output Total 1650 / 1650 1200 / 1200 500 / 500 Balance -270 / -270 345 / 345 -100 / -100 Lab / Micro Data 09/24/24 13:44 09/28/24 06:35 Physical Exam Const alert and no apparent distress General Appearance: cooperative Resp Resp Narrative: Few coarse bibasilar crackles. No wheezing. Not tachypneic. No conversationaldyspnea. Normal respiratory effort. Effort and Inspection: able to speak in complete sentences Cardio regular rate, regular rhythm, no murmurs, no rub and no gallops Cardio Narrative: No ectopy GI normal to inspection, nondistended, normoactive bowel sounds, soft to palpation and non-tender GI Narrative: No guarding with palpation Extremity no calf tenderness and no pedal edema Assessment & Plan Assessment/Plan (1) Debility: (2) Cerebellar stroke: PLAN: cryptogenic. (3) Gait instability: (4) Cognitive dysfunction: (5) History of malignant carcinoid tumor: (6) Obesity (BMI 30.0-34.9): (7) Dyslipidemia: (8) Benign essential HTN: PLAN: Plan 1. Itzel and his would like him discharged tomorrow to home with [facility]. did not feel that family training would be beneficial to her and passed on that. 2. DC Lovenox 3. AM BP is elevated. Will change the timing of the Lisinopril and give it at HS. Goal for BP is less than 140/80. [facility]. [facility] Charges/Coding Visit Charges Inpatient E&M: 04281 Subs Hosp L2 09/29/24 1524 <Electronically signed by Pamella Zuniga DO> Pamella Zuniga DO Cosign Signature (if applicable): CC: ~ Signed [facility] Work Phone: 1(809) 659-772505-27-2025 Progress note [facility] Medical Records Department [address] [place] [address] Progress Note 09/29/24 1251 MR#: [id number] Acct: [id number] Name: ITZEL GOMEZ Rep #:[id number] : 1945 79 From: Pamella Max Zuniga DO PCP: [facility] Status:ADM IN Location: [place] [address] Subjective Subjective Itzel was seen on team rounds today. His was present in the room. All questions were answered to their satisfaction. Afebrile VSS -blood pressure since Saturday has ranged from 134/72 to 174/83. BP is mostly controlled with occasional elevation.......mostly in the morning when he is awakening. Heart rate has ranged from 53-80. Orthostatics were negative today. He denied lightheadedness. Maintaining appropriate oxygen saturation on RA Oral intake - FOOD variable but mostly good. FLUIDS good Discussed with nursing - no problems that need addressed. Was not impulsive last night and slept well. Reviewed the THERAPY notes Medication list reviewed. All recent lab was personally reviewed. The sodium is 140 and the potassium is 4.1. The BUN is 23 with a creatinine of 1.64 which is within his baseline. Phosphorus is now normal without supplementation. Calcium is within normal limits. Objective Data Objective Data Vital Signs: Vital Signs Temp Pulse Resp BP Pulse Ox O2 Del Method 97.8 F 53 L 15 174/83 H 96 Room Air 09/29/24 06:00 09/29/24 06:00 09/29/24 06:00 09/29/24 06:00 09/29/24 06:00 09/29/24 06:00 Oxygen Delivery Method Room Air Weight: 167 lb 6.4 oz Body Mass Index (BMI) 30.6 Intake & Output: Intake and Output for Last 24 Hours 09/27/24 09/28/24 09/29/24 23:59 23:59 23:59 Intake Total 1380 / 1380 1545 / 1545 400 / 400 Output Total 1650 / 1650 1200 / 1200 500 / 500 Balance -270 / -270 345 / 345 -100 / -100 Lab / Micro Data 09/24/24 13:44 09/28/24 06:35 Physical Exam Const alert and no apparent distress General Appearance: cooperative Resp Resp Narrative: Few coarse bibasilar crackles. No wheezing. Not tachypneic. No conversationaldyspnea. Normal respiratory effort. Effort and Inspection: able to speak in complete sentences Cardio regular rate, regular rhythm, no murmurs, no rub and no gallops Cardio Narrative: No ectopy GI normal to inspection, nondistended, normoactive bowel sounds, soft to palpation and non-tender GI Narrative: No guarding with palpation Extremity no calf tenderness and no pedal edema Assessment & Plan Assessment/Plan (1) Debility: (2) Cerebellar stroke: PLAN: cryptogenic. (3) Gait instability: (4) Cognitive dysfunction: (5) History of malignant carcinoid tumor: (6) Obesity (BMI 30.0-34.9): (7) Dyslipidemia: (8) Benign essential HTN: PLAN: Plan 1. Itzel and his would like him discharged tomorrow to [facility]. did not feel that family training would be beneficial to her and passed on that. 2. DC Lovenox 3. AM BP is elevated. Will change the timing of the Lisinopril and give it at HS. Goal for BP is less than 140/80. 4. Will follow up with the [place]. Charges/Coding Visit Charges Inpatient E&M: 97547 [facility] Hosp L2 09/29/24 1524 Pamella Zuniga DO Cosigner Signature (if applicable): CC: ~ Signed [facility]05-26-2025 Progress note Author Pamella [facility] Note Date/Time September 28, 2024 3:53p m [facility] Medical Records Department [address] [place] [address] Progress Note 09/27/24 0851 MR#: [id number] Acct: [id number] Name: ITZEL GOMEZ Rep #:[id number] : 1945 79 From: Pamella Zuniga DO PCP: [facility] Hospital Status:ADM IN Location: [place] [address] Subjective Subjective Afebrile VSS -blood pressure over the past 24 hours has ranged from 140/88 to 164/86. The only antihypertensive is amlodipine 10 mg daily Maintaining appropriate oxygen saturation on RA Oral intake - FOOD good FLUIDS proved Last bowel movement was yesterday. No diarrhea. Discussed with nursing - no problems that need addressed. Reviewed the THERAPY notes Medication list reviewed. Pain in the abd is adequately controlled. Denies CP, SOB, lightheadedness, cephalgia, N/V, dysuria and calf pain. Objective Data Objective Data Vital Signs: Vital Signs Temp Pulse Resp BP Pulse Ox O2 Del Method 98.8 F 80 17 140/80 H 96 Room Air 09/27/24 06:00 09/27/24 07:52 09/27/24 06:00 09/27/24 07:52 09/27/24 06:00 09/27/24 06:00 Oxygen Delivery Method Room Air Weight: 167 lb 6.4 oz Body Mass Index (BMI) 30.6 Intake & Output: Intake and Output for Last 24 Hours 09/25/24 09/26/24 09/27/24 23:59 23:59 23:59 Intake Total 590 / 890 1940 / 1940 520 / 520 Output Total 300 / 700 850 / 850 600 / 600 Balance 290 / 190 1090 / 1090 -80 / -80 Lab / Micro Data 09/24/24 13:44 09/28/24 06:35 Physical Exam Const alert and no apparent distress General Appearance: cooperative Resp Resp Narrative: Few coarse bibasilar crackles. No wheezing. Not tachypneic. No conversationaldyspnea. Normal respiratory effort. Effort and Inspection: able to speak in complete sentences Cardio regular rate, regular rhythm, no murmurs, no rub and no gallops Cardio Narrative: No ectopy GI normal to inspection, nondistended, normoactive bowel sounds, soft to palpation and non-tender GI Narrative: No guarding with palpation Extremity no calf tenderness and no pedal edema Psych Psych Narrative: Pleasant and cooperative with staff during the day. Gets somewhat agitated whenhis comes in......asking when he is going home.....tells me he has things he needs to take care of. also asking how long he has to stay here and will he get [facility] [place] I told her that that will be discussed athis team meeting on Saturday. I also related that we can notn hold him against his will and if she wants to take him home we can discuss that Saturday. Sleeping OK. Assessment & Plan Assessment/Plan (1) Debility: (2) Cerebellar stroke: (3) Gait instability: (4) Cognitive dysfunction: (5) Sundowning: (6) History of malignant carcinoid tumor: (7) Short bowel syndrome: QUALIFIERS: Short bowel syndrome type: unspecified whether colon in continuity Qualified Code(s): K90.829 - Short bowel syndrome, unspecified (8) Hypothyroidism: QUALIFIERS: Hypothyroidism type: acquired Qualified Code(s): E03.9 - Hypothyroidism, unspecified (9) Chronic narcotic use: (10) Chronic abdominal pain: (11) Chronic renal failure, stage 3 (moderate): QUALIFIERS: Chronic kidney disease stage 3 subtype: unspecified whether 3a or 3b Qualified Code(s): N18.30 - Chronic kidney disease, stage 3 unspecified (12) History of depression: (13) Obesity (BMI 30.0-34.9): (14) Allergic rhinitis: QUALIFIERS: Allergic rhinitis trigger: unspecified Allergic rhinitis seasonality: non-seasonal Qualified Code(s): J30.89 - Other allergic rhinitis (15) Dyslipidemia: (16) Benign essential HTN: (17) Grade I diastolic dysfunction: (18) Mild concentric left ventricular hypertrophy: PLAN: Plan 1. Continue therapy 2. Add lisinopril 2.5 mg daily to his current drug regimen. 3. Add Mag CL to the current drug regimen to get the Mag up to around 2. Charges/Coding Visit Charges Inpatient E&M: 43373 Subs Hosp L1 09/28/24 1559 <Electronically signed by Pamella Zuniga DO> Pamella Zuniga DO Cosigner Signature (if applicable): CC: ~ Signed [facility] Work Phone: 1(636) 145-945305-26-2025 History and physical note Author [facility] Note Date/Time September 28, 2024 3:46p m [facility] Medical Records Department [address] [place] [id number] Post Admission Physician [place] 09/24/24 1047 MR#: [id number] Acct: [id number] Name: ITZEL GOMEZ Rep #:[id number] : 1945 79 From: Pamella Zuniga DO PCP: [facility] Hospital Status:ADM IN Location: [place] [address] Admission Information Primary Diagnosis:: Poststroke debility-right cerebellar ischemic CVA Status Changes from Prescreening?: No changes Identified Actual Problem List:: Skin Intergrity, Pain, ALteration in Cmfrt, Cognitve Impr/Memory Loss, Depression, Alteration in Sleep, Mobility Impaired, Self Care Deficit and Alteration-Leisure Activ. Potential Problem List:: DVT, Bleeding, Infection, UTI, Aspiration, Falls, Skin Integrity and Depression Risk of Complications DVT: LMWH and JUAN Hose Bleeding: Monitor Lab Values, Nursing to Teach Precautions for anti-coagulation therapy., Wound, if applicable, to be assessed every shift. and Stroke patients assessed for lethargy or change in status. Infection: Clinical Staff to Monitor for S/S of infection: and S/S of infection include fever, redness, warmth, etc. Urinary Tract Infection: Monitor for frequency, burning, discomfort, or incontinence. and Nursing will obtain urine sample for urinalysis and C&S when ordered. Aspiration: Clinical staff will monitor for coughing, drooling, congestion., Speech will evaluate swallowing and dsyphasia. and Nursing will monitor patient swallowing during meals. Falls: Patient will be evaluated for Fall Precautions and Patient will be placedon Fall Precautions as indicated per protocol. Skin Breakdown: Nursing will assess skin daily using assessment tool. and Nursing will place on Skin Breakdown Precautions as indicated. Pain: Clinical staff will assess patient's pain level per protocol., Medicationswill be given, if needed, and the pain level reassessed. and Other methods: Massage, distraction, decrease stimulus, etc. used PRN. Plan of Care Patient requires physician specializing in physical medicine and rehab oversightto provide close medical supervision of rehab issues including: Pain Management,Sleep Problems, Bowel and Bladder, Medical and co-morbidity Management, DVT prophylaxis, Rehabilitation Leadership and Coordination of treatment team Patient needs Physical Therapy: For a minimum of 1 hour and At least 5 out of 7 days Patient needs Physical Therapy to improve:: Mobility, Strengthening, Transfers, Stretching, ROM, Endurance, Stairs, Gait and Balance Patient needs Occupational Therapy: For a minimum of 1 hour and At least 5 out of 7 days Patient needs Occupational Therapy to improve ADL's incl.: Eating, Grooming, Bathing, Dressing, Toileting, Toilet transfers, Community Reintegration, Higher functioning activities, Household tasks, Adaptive Equipment, Splinting and Otheractivities as determined Patient requires speech therapy: For a minimum of 1 hour and At least 5 out of 7days Patient requires speech therapy for: Swallowing, Cognition, Language Skills and Compensatory Strategies Patient requires 24/7 Rehabilitation Nursing for: Pain Issues, Identifying and preventing risk factors, Monitoring and reporting current medical conditions, Assisting with ambulation, transfer, and all ADL's, Teaching patients about disease process and medications, Family teaching, Providing safe environment, Bowel and Bladder Issues, Skin integrity and Medication Management Patient needs Drop Wire Stringer/ Case Management for: Discharge Planning, Arranging Home Equipment or Services and Family Interventions Patient needs Dietary and Nutrition Services for: Adequate Nutrition, Nutritional Supplements and Nutritional Education Goals Goals Patient will remain: free from falls Patient will perform eating at: MOD I level of assist. Patient will perform bed mobility at: MOD I level of assist. Patient will complete transfers from bed to chair at: MOD I level of assist. Patient will ambulate: - (600 feet using least restrictive device on various surfaces) Patient will complete upper body dressing at: MOD I level of assist. Patient will complete lower body dressing at: MOD I level of assist. (Using adaptive equipment as needed) Patient will complete toilet transfer at: MOD I level of assist. Patient will complete toileting at: MOD I level of assist. Patient will perform bathing at: MOD I level of assist. (Upper body bathing independently and lower body bathing at mod I with adaptive equipment as needed) Patient will perform Tub/Shower transfer at: - (Supervision) Patient will complete grooming at: MOD I level of assist. (While standing at thesink) Patient will achieve: - (12 steps using 1 handrail with supervision) Patient will have pain level of: of 3 or less Patient's skin will: remain intact Patient will receive: adequate nutrition. Discharge Planning Pt Prognosis for Sig. Practical Improv. w/in Reasonable Time: Good Estimated Length of stay (days): 28 Anticipated D/C Destination: Home with Home Health Was Preadmission Assessment Accurate?: Yes 09/28/24 2406 <Electronically signed by Pamella Zuniga DO> Cosigner Signature (if applicable): CC: ~ Signed [facility] Work Phone: 1(410) 888-374705-26-2025 Progress note [facility] Medical Records Department [address] [place] [address] Progress Note 09/27/24 0851 MR#: [id number] Acct: [id number] Name: ITZEL GOEMZ Rep #:[id number] : 1945 79 From: Pamella Zuniga DO [facility]M [facility] Location: [id number] Subjective Subjective Afebrile VSS -blood pressure over the past 24 hours has ranged from 140/88 to 164/86. The only antihypertensive is amlodipine 10 mg daily Maintaining appropriate oxygen saturation on RA Oral intake - FOOD good FLUIDS proved Last bowel movement was yesterday. No diarrhea. Discussed with nursing - no problems that need addressed. Reviewed the THERAPY notes Medication list reviewed. Pain in the abd is adequately controlled. Denies CP, SOB, lightheadedness, cephalgia, N/V, dysuria and calf pain. Objective Data Objective Data Vital Signs: Vital Signs Temp Pulse Resp BP Pulse Ox O2 Del Method 98.8 F 80 17 140/80 H 96 Room Air 09/27/24 06:00 09/27/24 07:52 09/27/24 06:00 09/27/24 07:52 09/27/24 06:00 09/27/24 06:00 Oxygen Delivery Method Room Air Weight: 167 lb 6.4 oz Body Mass Index (BMI) 30.6 Intake & Output: Intake and Output for Last 24 Hours 09/25/24 09/26/24 09/27/24 23:59 23:59 23:59 Intake Total 590 / 890 1940 / 1940 520 / 520 Output Total 300 / 700 850 / 850 600 / 600 Balance 290 / 190 1090 / 1090 -80 / -80 Lab / Micro Data 09/24/24 13:44 09/28/24 06:35 Physical Exam Const alert and no apparent distress General Appearance: cooperative Resp Resp Narrative: Few coarse bibasilar crackles. No wheezing. Not tachypneic. No conversationaldyspnea. Normal respiratory effort. Effort and Inspection: able to speak in complete sentences Cardio regular rate, regular rhythm, no murmurs, no rub and no gallops Cardio Narrative: No ectopy GI normal to inspection, nondistended, normoactive bowel sounds, soft to palpation and non-tender GI Narrative: No guarding with palpation Extremity no calf tenderness and no pedal edema Psych Psych Narrative: Pleasant and cooperative with staff during the day. Gets somewhat agitated whenhis comes in......asking when he is going home.....tells me he has things he needs to take care of. also asking how long he has to stay here and will he get [facility] through the [facility] [place]. I told her that that will be discussed athis team meeting on Saturday. I also related that we can notn hold him against his willand if she wants to take him home we can discuss that Saturday. Sleeping OK. Assessment & Plan Assessment/Plan (1) Debility: (2) Cerebellar stroke: (3) Gait instability: (4) Cognitive dysfunction: (5) : (6) History of malignant carcinoid tumor: (7) Short bowel syndrome: QUALIFIERS: Short bowel syndrome type: unspecified whether colon in continuity Qualified Code(s): K90.829 - Short bowel syndrome, unspecified (8) Hypothyroidism: QUALIFIERS: Hypothyroidism type: acquired Qualified Code(s): E03.9 - Hypothyroidism, unspecified (9) Chronic narcotic use: (10) Chronic abdominal pain: (11) Chronic renal failure, stage 3 (moderate): QUALIFIERS: Chronic kidney disease stage 3 subtype: unspecified whether 3a or 3b Qualified Code(s):N18.30 - Chronic kidney disease, stage 3 unspecified (12) History of depression: (13) Obesity (BMI 30.0-34.9): (14) Allergic rhinitis: QUALIFIERS: Allergic rhinitis trigger: unspecified Allergic rhinitis seasonality: non-seasonal Qualified Code(s): J30.89 - Other allergic rhinitis (15) Dyslipidemia: (16) Benign essential HTN: (17) Grade I diastolic dysfunction: (18) Mild concentric left ventricular hypertrophy: PLAN: Plan 1. Continue therapy 2. Add lisinopril 2.5 mg daily to his current drug regimen. 3. Add Mag CL to the current drug regimen to get the Mag up to around 2. Charges/Coding Visit Charges Inpatient E&M: 14036 Subs Hosp L1 09/28/24 1556 Pamella Zuniga DO Cosigner Signature (if applicable): CC: ~ Signed [facility]05-26-2025 History and physical note [facility] Medical Records Department [address] [place] [address] Post Admission Physician [place] 09/24/24 1047 MR#: [id number] Acct: [id number] Name: ITZEL GOMEZ Rep #:[id number] : 1945 79 From: Pamella Zuniga DO PCP: [facility] Hospital Status:ADM IN Location: [id number] Admission Information Primary Diagnosis:: Poststroke debility-right cerebellar ischemic CVA Status Changes from Prescreening?: No changes Identified Actual Problem List:: Skin Intergrity, Pain, ALteration in Cmfrt, Cognitve Impr/Memory Loss, Depression, Alteration in Sleep, Mobility Impaired, Self Care Deficit and Alteration-Leisure Activ. Potential Problem List:: DVT, Bleeding, Infection, UTI, Aspiration, Falls, Skin Integrity and Depression Risk of Complications DVT: LMWH and UJAN Hose Bleeding: Monitor Lab Values, Nursing to Teach Precautions for anti-coagulation therapy., Wound, ifapplicable, to be assessed every shift. and Stroke patients assessed for lethargy or change in status. Infection: Clinical Staff to Monitor for S/S of infection: and S/S of infection include fever, redness, warmth, etc. Urinary Tract Infection: Monitor for frequency, burning, discomfort, or incontinence. and Nursing will obtain urine sample for urinalysis and C&S when ordered. Aspiration: Clinical staff will monitor for coughing, drooling, congestion., Speech will evaluate swallowing and dsyphasia. and Nursing will monitor patient swallowing during meals. Falls: Patient will be evaluated for Fall Precautions and Patient will be placedon Fall Precautionsas indicated per protocol. Skin Breakdown: Nursing will assess skin daily using assessment tool. and Nursing will place on Skin Breakdown Precautions as indicated. Pain: Clinical staff will assess patient's pain level per protocol., Medicationswill be given, if needed, and the pain level reassessed. and Other methods: Massage, distraction, decrease stimulus, etc. used PRN. Plan of Care Patient requires physician specializing in physical medicine and rehab oversightto provide close medical supervision of rehab issues including: Pain Management,Sleep Problems, Bowel and Bladder, Medical and co-morbidity Management, DVT prophylaxis, Rehabilitation Leadership and Coordination of treat ment team Patient needs Physical Therapy: For a minimum of 1 hour and At least 5 out of 7 days Patient needs Physical Therapy to improve:: Mobility, Strengthening, Transfers, Stretching, ROM, Endurance, Stairs, Gait and Balance Patient needs Occupational Therapy: For a minimum of 1 hour and At least 5 out of 7 days Patient needs Occupational Therapy to improve ADL's incl.: Eating, Grooming, Bathing, Dressing, Toileting, Toilet transfers, Community Reintegration, Higher functioning activities, Household tasks, Adaptive Equipment, Splinting and Otheractivities as determined Patient requires speech therapy: For a minimum of 1 hour and At least 5 out of 7days Patient requires speech therapy for: Swallowing, Cognition, Language Skills and Compensatory Strategies Patient requires 24/7 Rehabilitation Nursing for: Pain Issues, Identifying and preventing risk factors, Monitoring and reporting current medical conditions, Assisting with ambulation, transfer, and all ADL's, Teaching patients about disease process and medications, Family teaching, Providing safe environment, Bowel and Bladder Issues, Skin integrity and Medication Management Patient needs Drop Wire Stringer/ Case Management for: Discharge Planning, Arranging Home Equipment orServices and Family Interventions Patient needs Dietary and Nutrition Services for: Adequate Nutrition, Nutritional Supplements and Nutritional Education Goals Goals Patient will remain: free from falls Patient will perform eating at: MOD I level of assist. Patient will perform bed mobility at: MOD I level of assist. Patient will complete transfers from bed to chair at: MOD I level of assist. Patient will ambulate: - (600 feet using least restrictive device on various surfaces) Patient will complete upper body dressing at: MOD I level of assist. Patient will complete lower body dressing at: MOD I level of assist. (Using adaptive equipment as needed) Patient will complete toilet transfer at: MOD I level of assist. Patient will complete toileting at: MOD I level of assist. Patient will perform bathing at: MOD I level of assist. (Upper body bathing independently and lowerbody bathing at mod I with adaptive equipment as needed) Patient will perform Tub/Shower transfer at: - (Supervision) Patient will complete grooming at: MOD I level of assist. (While standing at thesink) Patient will achieve: - (12 steps using 1 handrail with supervision) Patient will have pain level of: of 3 or less Patient's skin will: remain intact Patient will receive: adequate nutrition. Discharge Planning Pt Prognosis for Sig. Practical Improv. w/in Reasonable Time: Good Estimated Length of stay (days): 28 Anticipated D/C Destination: Home with Home Health Was Preadmission Assessment Accurate?: Yes 09/28/24 1501 Cosigner Signature (if applicable): CC: ~ Signed [facility]05-23-2025 History and physical note Author Pamella Zuniga [facility] Note Date/Time September 25, 2024 7:22p m [facility] Medical Records Department [address] [place] [address] History & Physical Exam 09/24/24 1045 MR#: [id number] Acct: [id number] Name: ITZEL GOMEZ Rep #:[id number] : 1945 79 From: Pamella Zuniga DO PCP: [facility] Hospital Status:ADM IN Location: [place] [address]1 HPI - General General Date of Admission: 09/23/24 Date of Service: 09/24/24 Chief Complaint: POST STROKE DEBILITY HPI Narrative ITZEL GOMEZ, is a 79 YO M with a PMH of anxiety/depression, chronic kidney disease stage III, obesity, 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 He had a mechanical fall which precipitated the visit to the emergency department. He additionally complained of a headache. He actually had vertigo in the ED when attempting to move. A stat noncontrast CT brain showed no acute findings. There was generalized brain atrophy and small vessel ischemic disease. CTA of the head and neck showed mild scattered atherosclerotic calcification of the anterior and posterior intracranial and extracranial circulation without hemodynamically significant stenosis. CT scan of the abdomen and pelvis showed a nonspecific lobulated isodense lesion in the pelvis measuring up to 3.4 cm. There was a mild esophageal hiatal hernia and fecal retention in the colon consistent with constipation. He had colonic diverticulosis with no evidence ofdiverticulitis. Chest x-ray showed mild basilar atelectasis with no evidence ofpneumonia or pleural effusion. There were no acute findings. He was admitted to the hospitalist service for concern for a posterior circulation CVA. MRI of the brain done on 09/21/2024 showed an acute nonhemorrhagic infarct in the right cerebellum. There was mild to moderate nonspecific chronic white matter changesand mild generalized atrophy. Hemoglobin A1c was normal at 5.5. Total cholesterol was 175 with an LDL of 91 and an HDL of 61. Transthoracic echocardiogram showed mild concentric left ventricular hypertrophy with an EF of60%. There was stage I diastolic dysfunction. There was no significant valvular heart disease and a bubble study was not done. Teleneurology consult was obtained and daily antiplatelet medication was recommended. They also recommended starting Lipitor at 40 mg daily for an LDL of 91. He was evaluated by therapy and had an unsteady gait. He was agreeable to acute rehab at discharge and he was transferred to the acute inpatient rehab unit at [facility] in the evening on 09/23/2024 for 3 hours of therapy daily to restore function/independence at or near his level prior to the stroke. [facility] Medical History (Updated 09/25/24 @ 19:[address] Pamella Zuniga, ) Mild concentric left ventricular hypertrophy Grade I diastolic dysfunction Chronic narcotic use Allergic rhinitis History of depression Hypothyroidism Obesity (BMI 30.0-34.9) Chronic renal failure, stage 3 (moderate) Chronic abdominal pain History of malignant carcinoid tumor Bilateral pneumonia History of COVID-19 Anxiety and depression Cancer Former smoker Hypertension Stroke/cerebrovascular accident Multiple metastatic carcinoid tumors Home Medications ?Medication ?Instructions ?Recorded ?Last Taken ?Type amlodipine 10 mg tablet 10 mg PO DAILY Blood pressur e 90 09/20/20 09/23/24 Rx days #90 tabs loratadine 10 mg tablet 10 mg PO DAILY ALLERGIES 09/23/24 History aspirin 81 mg tablet 81 mg PO DAILY heart health 09/20/24 09/23/24 History colestipol 1 gram tablet 1 g PO BID cholesterol 09/2009/23/24 History escitalopram oxalate 10 mg tablet 10 mg PO DAILY depre ssion 09/20/24 09/23/24 History levothyroxine 25 mcg tablet 25 mcg PO DAILY thyroid 09/23/24 History (Levo-T) loperamide 2 mg tablet (Diamode) 4 mg PO BID diarrhea 09/20/24 09/20/24 History octreotide acetate 30 mg IM Q28D cancer 5 09/22/24 History potassium chloride 20 mEq 20 meq PO DAILY supplement 0 09/20/24 09/23/24 History tablet,extended release telotristat ethyl 250 mg tablet 250 mg PO TID diarrhea 09/20/24 09/20/24 History (Xermelo) acetaminophen 325 mg tablet 650 mg PO Q6H PRN pain/fev er 09/23/24 Unknown History atorvastatin 40 mg tablet 40 mg PO QHS cholsterol #0 t abs 09/23/24 09/22/24 Rx enoxaparin 40 mg/0.4 mL 40 mg (0.4 mL) subcut DAILY 09/23/24 09/23/24 Rx subcutaneous syringe prophylaxis #0 mL food supplemt, lactose-reduced 120 ml PO TIDCM nutriti on #0 mL 09/23/24 Unknown Rx 0.08 gram-1.5 kcal/mL oral liquid (Ensure Plus High Protein) Allergy/AdvReac Type Severity Reaction Status Date / Time amoxicillin Allergy Rash Verified 09/20/24 13:53 codeine AdvReac Nausea Verified 09/20/24 13:53 Family History Mother Heart disease Myocardial infarction CAD (coronary artery disease) Father COPD (chronic obstructive pulmonary disease) Surgical History H/O resection of small bowel S/P colectomy History of appendectomy History of cholecystectomy Social History household members: spouse Smoking Status: Former smoker how long ago did patient quit smoking: Patient smoked in the only and quit remotely. alcohol intake: never substance use type: does not use ROS Constitutional Constitutional: Denies anorexia, change in weight, chills, fatigue, fever(s), night sweats or weakness Eyes Eyes: Reports periorbital itching and other; Denies blurry vision, change in vision, eye pain or loss of vision ENT HEENT: Reports abnormal hearing, dizziness, hearing loss, rhinorrhea and other Details: Bilateral hearing aid ; Denies dysphagia, headache(s), nasal congestion or sore throat Cardiovascular Cardiovascular: Denies chest pain, dyspnea on exertion, edema, lightheadedness, nausea, orthopnea, palpitations, paroxysmal nocturnal dyspnea, pedal edema or syncope Respiratory/Chest Respiratory/Chest: Reports cough, snoring, witnessed apneas and other Details: Diagnosed with sleep apnea in the past but because he is a 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 He is not on supplemental oxygen at night. ; Denies dyspnea, portable oxygen @ home, shortness of breath at rest, shortness of breath with exertion or wheezing Gastrointestinal Gastrointestinal: Reports diarrhea; Denies abdominal pain, constipation, dyspepsia, hematemesis, hematochezia, nausea, vomiting or weight changes Genitourinary Genitourinary: Denies dysuria, hematuria, nocturia, urinary frequency, urinary hesitancy, urinary incontinence or urinary urgency Musculoskeletal Musculoskeletal: Denies back pain, joint pain, joint swelling or neck pain Integumentary Integumentary: Reports alopecia and dry skin; Denies jaundice, photosensitivity,pruritus, rash or skin pain Neurologic Neurologic: Reports confusion, disequilibrium, dizziness and other Details: Got confused in the evening last night. ? ; Denies focal weakness, headache(s), paresthesias, radicular pain, restless legs,seizures or tremor(s) Psychiatric Psychiatric: Denies anxiety, depression, homicidal ideation or suicidal ideation Endocrine Endocrinology: Denies change in body appearance, polydipsia or polyuria Hematologic/Lymphatic Hematologic/Lymphatic: Denies easy bleeding, easy bruising or lymphadenopathy Allergic/Immunologic Allergic/Immunologic: Denies rhinitis, eczemia or asthma Vital Signs Vital Signs Vital Signs: 09/23/24 18:37 09/24/24 05:15 09/24/24 07:19 Temperature 97.6 F L 97.3 F L Temperature Source Temporal Oral Pulse Rate 61 60 Respiratory Rate 17 17 Blood Pressure 116/77 160/80 H Blood Pressure Mean 90 106 Blood Pressure Source Monitor Monitor Blood Pressure Position Semi-Fowlers Semi-Fowlers Blood Pressure Location Right Arm Right Arm Pulse Ox 96 96 Oxygen Delivery Method Room Air Room Air Room Air Weight Weight: 166 lb 3.657 oz Body Mass Index (BMI) 22.5 Indicators for Scoring Admitted with or Primary Diagnosis of CVA/Stroke: Yes Hx of CVA/Stroke: Yes Modified Morrow Score MRS Score at time of Evaluation: 3-Moderate disability NIHSS NIHSS 1a. Level of Consciousness: 0 - Alert; keenly responsive 1b. LOC Questions: 0 - Answers BOTH questions correctly 1c. LOC Commands: 0 - Performs BOTH tasks correctly 2. Best Gaze: 0 - Normal 3. Visual: 0 - No visual loss 4. Facial Palsy: 0 - Normal symmetrical movements 5a. Left Arm: 0 - No drift; arm holds 90 (or 45) degrees for full 10 seconds 5b. Right Arm: 0 - No drift; arm holds 90 (or 45) degrees for full 10 seconds 6a. Left Le - No drift; leg holds 30-degree position for full 5 seconds 6b. Right Le - No drift; leg holds 30-degree position for full 5 seconds 7. Limb Ataxia: 0 - Absent 8. Sensory: 0 - Normal; no sensory loss 9. Best Language: 0 - No aphasia; normal 10. Dysarthria: 0 - Normal 11. Extinction and Inattention: 0 - No abnormality Total: 0 Stroke Questions Stroke Team Activated: No Physical Exam Const alert, oriented x3 and no apparent distress Constitutional Narrative: Sitting in the recliner at the bedside. Appropriate, pleasant, makes good eye contact. General Appearance: cooperative and well kempt HEENT head/scalp atraumatic HEENT Narrative: Bilateral hearing aids. Tongue protrudes on the midline. Mucous membranes are little dry. Eyes PERRL, EOMs intact bilaterally, conjunctivae normal and no scleral icterus Eyes Narrative: No discharge from the eyes. He has a few beats of nystagmus with extreme lateral gaze but is asymptomatic. Neck supple, No nodes and no carotid bruits General: trachea midline Chest Chest: symmetrical chest wall rise Resp Resp Narrative: Few coarse bibasilar crackles. No wheezing. Not tachypneic. No conversationaldyspnea. Normal respiratory effort. Effort and Inspection: able to speak in complete sentences Cardio regular rate, regular rhythm, S1 normal heart sound, S2 normal heart sound, no murmurs, no rub and no gallops Cardio Narrative: No ectopy GI normal to inspection, nondistended, normoactive bowel sounds, soft to palpation and non-tender GI Narrative: No guarding with palpation no CVA tenderness Narrative: Postvoid residuals are all less than 10. Back/Spine straight leg raise negative bilaterally Extremity no calf tenderness and no pedal edema Extremity Narrative: No clubbing and no cyanosis. Skin Skin Narrative: He has some skin tears and bruises from the fall. NO cellulitis observed. IV site in the L antecubital fossa is reddened and tender but, no purulent DC and no superficial thormbophlebitis observed. Rashes: no rashes Neuro oriented x3, CN's II-XII intact bilaterally, moves all extremities, no focal motor deficits and no sensory deficits noted Neuro Narrative: No visual field cuts. Nystagmus but, denies vertigo. no extinction. Oriented to mmonth, year, place but, told me he is here for a heart attack and not a stroke. Had some sundowning last night. Psych cooperative, affect normal, speech normal, denies hallucinations, denies homicidal ideation and denies suicidal ideation Psych Narrative: Had some sundowning last night. He is impulsive and has poor safety awareness. Confused at times. Results Lab / Micro Data 09/24/24 13:44 09/24/24 13:44 Assessment & Plan Assessment/Plan (1) Debility: (2) Cerebellar stroke: (3) Gait instability: (4) Cognitive dysfunction: (5) Sundowning: (6) History of malignant carcinoid tumor: (7) Short bowel syndrome: QUALIFIERS: Short bowel syndrome type: unspecified whether colon in continuity Qualified Code(s): K90.829 - Short bowel syndrome, unspecified (8) Hypothyroidism: QUALIFIERS: Hypothyroidism type: acquired Qualified Code(s): E03.9 - Hypothyroidism, unspecified (9) Chronic narcotic use: (10) Chronic abdominal pain: (11) Chronic renal failure, stage 3 (moderate): QUALIFIERS: Chronic kidney disease stage 3 subtype: unspecified whether 3a or 3b Qualified Code(s): N18.30 - Chronic kidney disease, stage 3 unspecified (12) History of depression: (13) Obesity (BMI 30.0-34.9): (14) Allergic rhinitis: QUALIFIERS: Allergic rhinitis trigger: unspecified Allergic rhinitis seasonality: non-seasonal Qualified Code(s): J30.89 - Other allergic rhinitis (15) Dyslipidemia: (16) Benign essential HTN: (17) Grade I diastolic dysfunction: (18) Mild concentric left ventricular hypertrophy: PLAN: Plan PLAN PT for gait stability OT for ADL's ST for evaluation Analgesics as needed Bowel protocol Fall precautions Assess for Anxiety/Depression GI prophylaxis -not necessary at this time. He denies history of peptic ulcer disease and he also denies heartburn, nausea/vomiting/epigastric pain. DVT prophylaxis with enoxaparin 40 mg subcu daily Follow up with PCP and neurology following DC from [facility] Rehab AM lab including CMP, CBC, Mag and Phos-all personally reviewed Permissive hypertension for now but in another 3 to 4 days will want to see the blood pressure less than 140/80. Charges/Coding Visit Charges Inpatient E&M: 17793 Init Hosp L3 09/25/241921 <Electronically signed by Pamella Zuniga DO> Cosigner Signature (if applicable): CC: Dr. Pamella Zuniga, ; [facility]~ Signed [facility] Work Phone: [phone] 212-332905-23-2025 History and physical note [facility] Medical Records Department [address] [place] [address] History & Physical Exam 09/24/24 1045 MR#: [id number] Acct: [id number] Name: ITZEL GOMEZ Rep #:[id number] : 1945 79 From: Pamella Zuniga DO PCP: [facility] Status:ADM IN Location: [address] HPI - General General Date of Admission: 09/23/24 Date of Service: 09/24/24 Chief Complaint: POST STROKE DEBILITY HPI Narrative ITZEL GOMEZ, is a 79 YO M with a PMH of anxiety/depression, chronic kidney disease stage III, obesity, 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 He had a mechanical fall which precipitated the visit [facility] emergency department. He additionally complained of a headache. He actually had vertigo in the ED when attempting to move. A stat noncontrast CT brain showed no acute findings. There was generalized brain atrophy and small vessel ischemic disease. CTA of the head and neck showed mild scattered atherosclerotic calcification of the anterior and posterior intracranial and extracranial circulation without hemodynamically significant stenosis. CT scan of the abdomen and pelvis showed a nonspecific lobulated isodense lesion in the pelvis measuring up to 3.4 cm. There was a mild esophageal hiatal hernia and fecal retention in the colon consistent with constipation. He had colonic diverticulosis with no evidence ofdiverticulitis. Chest x-ray showed mild basilar atelectasis with no evidence ofpneumonia or pleural effusion. There were no acute findings. He was admitted to the hospitalist service for concern for a posterior circulation CVA. MRI of the brain done on 09/21/2024 showed an acute nonhemorrhagic infarct in the right cerebellum. There was mild to moderate nonspecific chronic whitematter changesand mild generalized atrophy. Hemoglobin A1c was normal at 5.5. Total cholesterol liq126 with an LDL of 91 and an HDL of 61. Transthoracic echocardiogram showed mild concentric left ventricular hypertrophy with an EF of60%. There was stage I diastolic dysfunction. There was no significant valvular heart disease and a bubble study was not done. Teleneurology consult was obtained anddaily antiplatelet medication was recommended. They also recommended starting Lipitor at 40 mg daily for an LDL of 91. He was evaluated by therapy and had an unsteady gait. He was agreeable to acute rehab at discharge and he was transferred to the acute inpatient rehab unit at [facility] in the evening on 09/23/2024 for 3 hours of therapy daily to restore function/independence at or near his level prior to the stroke. [facility] Medical History (Updated 09/25/24 @ 19:[address] Pamella Zuniga, ) Mild concentric left ventricular hypertrophy Grade I diastolic dysfunction Chronic narcotic use Allergic rhinitis History of depression Hypothyroidism Obesity (BMI 30.0-34.9) Chronic renal failure, stage 3 (moderate) Chronic abdominal pain History of malignant carcinoid tumor Bilateral pneumonia History of COVID-19 Anxiety and depression Cancer Former smoker Hypertension Stroke/cerebrovascular accident Multiple metastatic carcinoid tumors Home Medications ?Medication ?Instructions ?Recorded ?Last Taken ?Type amlodipine 10 mg tablet 10 mg PO DAILY Blood pressur e 90 09/20/20 09/23/24 Rx days #90 tabs loratadine 10 mg tablet 10 mg PO DAILY ALLERGIES 09/23/24 History aspirin 81 mg tablet 81 mg PO DAILY heart health 09/20/24 09/23/24 History colestipol 1 gram tablet 1 g PO BID cholesterol 09/2009/23/24 History escitalopram oxalate 10 mg tablet 10 mg PO DAILY depre ssion 09/20/24 09/23/24 History levothyroxine 25 mcg tablet 25 mcg PO DAILY thyroid 09/23/24 History (Levo-T) loperamide 2 mg tablet (Diamode) 4 mg PO BID diarrhea 09/20/24 09/20/24 History octreotide acetate 30 mg IM Q28D cancer 5 09/22/24 History potassium chloride 20 mEq 20 meq PO DAILY supplement 0 09/20/24 09/23/24 History tablet,extended release telotristat ethyl 250 mg tablet 250 mg PO TID diarrhea 09/20/24 09/20/24 History (Xermelo) acetaminophen 325 mg tablet 650 mg PO Q6H PRN pain/fev er 09/23/24 Unknown History atorvastatin 40 mg tablet 40 mg PO QHS cholsterol #0 t abs 09/23/24 09/22/24 Rx enoxaparin 40 mg/0.4 mL 40 mg (0.4 mL) subcut DAILY 09/23/24 09/23/24 Rx subcutaneous syringe prophylaxis #0 mL food supplemt, lactose-reduced 120 ml PO TIDCM nutriti on #0 mL 09/23/24 Unknown Rx 0.08 gram-1.5 kcal/mL oral liquid (Ensure Plus High Protein) Allergy/AdvReac Type Severity Reaction Status Date / Time amoxicillin Allergy Rash Verified 09/20/24 13:53 codeine AdvReac Nausea Verified 09/20/24 13:53 Family History Mother Heart disease Myocardial infarction CAD (coronary artery disease) Father COPD (chronic obstructive pulmonary disease) Surgical History H/O resection of small bowel S/P colectomy History of appendectomy History of cholecystectomy Social History household members: spouse Smoking Status: Former smoker how long ago did patient quit smoking: Patient smoked in the only and quit remotely. alcohol intake: never substance use type: does not use ROS Constitutional Constitutional: Denies anorexia, change in weight, chills, fatigue, fever(s), night sweats or weakness Eyes Eyes: Reports periorbital itching and other; Denies blurry vision, change in vision, eye pain or loss of vision ENT HEENT: Reports abnormal hearing, dizziness, hearing loss, rhinorrhea and other Details: Bilateral hearing aid ; Denies dysphagia, headache(s), nasal congestion or sore throat Cardiovascular Cardiovascular: Denies chest pain, dyspnea on exertion, edema, lightheadedness, nausea, orthopnea, palpitations, paroxysmal nocturnal dyspnea, pedal edema or syncope Respiratory/Chest Respiratory/Chest: Reports cough, snoring, witnessed apneas and other Details: Diagnosed with sleepapnea in the past but because he is a 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 He is not on supplemental oxygen at night. ; Denies dyspnea, portable oxygen @ home, shortness of breath at rest, shortness of breath with exertion or wheezing Gastrointestinal Gastrointestinal: Reports diarrhea; Denies abdominal pain, constipation, dyspepsia, hematemesis, hematochezia, nausea, vomiting or weight changes Genitourinary Genitourinary: Denies dysuria, hematuria, nocturia, urinary frequency, urinary hesitancy, urinary incontinence or urinary urgency Musculoskeletal Musculoskeletal: Denies back pain, joint pain, joint swelling or neck pain Integumentary Integumentary: Reports alopecia and dry skin; Denies jaundice, photosensitivity,pruritus, rash or skin pain Neurologic Neurologic: Reports confusion, disequilibrium, dizziness and other Details: Got confused in the evening last night. ? ; Denies focal weakness, headache(s), paresthesias, radicular pain, restless legs,seizures or tremor(s) Psychiatric Psychiatric: Denies anxiety, depression, homicidal ideation or suicidal ideation Endocrine Endocrinology: Denies change in body appearance, polydipsia or polyuria Hematologic/Lymphatic Hematologic/Lymphatic: Denies easy bleeding, easy bruising or lymphadenopathy Allergic/Immunologic Allergic/Immunologic: Denies rhinitis, eczemia or asthma Vital Signs Vital Signs Vital Signs: 09/23/24 18:37 09/24/24 05:15 09/24/24 07:19 Temperature 97.6 F L 97.3 F L Temperature Source Temporal Oral Pulse Rate 61 60 Respiratory Rate 17 17 Blood Pressure 116/77 160/80 H Blood Pressure Mean 90 106 Blood Pressure Source Monitor Monitor Blood Pressure Position Semi-Fowlers Semi-Fowlers Blood Pressure Location Right Arm Right Arm Pulse Ox 96 96 Oxygen Delivery Method Room Air Room Air Room Air Weight Weight: 166 lb 3.657 oz Body Mass Index (BMI) 22.5 Indicators for Scoring Admitted with or Primary Diagnosis of CVA/Stroke: Yes Hx of CVA/Stroke: Yes Modified Morrow Score MRS Score at time of Evaluation: 3-Moderate disability NIHSS NIHSS 1a. Level of Consciousness: 0 - Alert; keenly responsive 1b. LOC Questions: 0 - Answers BOTH questions correctly 1c. LOC Commands: 0 - Performs BOTH tasks correctly 2. Best Gaze: 0 - Normal 3. Visual: 0 - No visual loss 4. Facial Palsy: 0 - Normal symmetrical movements 5a. Left Arm: 0 - No drift; arm holds 90 (or 45) degrees for full 10 seconds 5b. Right Arm: 0 - No drift; arm holds 90 (or 45) degrees for full 10 seconds 6a. Left Le - No drift; leg holds 30-degree position for full 5 seconds 6b. Right Le - No drift; leg holds 30-degree position for full 5 seconds 7. Limb Ataxia: 0 - Absent 8. Sensory: 0 - Normal; no sensory loss 9. Best Language: 0 - No aphasia; normal 10. Dysarthria: 0 - Normal 11. Extinction and Inattention: 0 - No abnormality Total: 0 Stroke Questions Stroke Team Activated: No Physical Exam Const alert, oriented x3 and no apparent distress Constitutional Narrative: Sitting in the recliner at the bedside. Appropriate, pleasant, makes good eye contact. General Appearance: cooperative and well kempt HEENT head/scalp atraumatic HEENT Narrative: Bilateral hearing aids. Tongue protrudes on the midline. Mucous membranes are little dry. Eyes PERRL, EOMs intact bilaterally, conjunctivae normal and no scleral icterus Eyes Narrative: No discharge from the eyes. He has a few beats of nystagmus with extreme lateral gaze but is asymptomatic. Neck supple, No nodes and no carotid bruits General: trachea midline Chest Chest: symmetrical chest wall rise Resp Resp Narrative: Few coarse bibasilar crackles. No wheezing. Not tachypneic. No conversationaldyspnea. Normal respiratory effort. Effort and Inspection: able to speak in complete sentences Cardio regular rate, regular rhythm, S1 normal heart sound, S2 normal heart sound, no murmurs, no rub and no gallops Cardio Narrative: No ectopy GI normal to inspection, nondistended, normoactive bowel sounds, soft to palpation and non-tender GI Narrative: No guarding with palpation no CVA tenderness Narrative: Postvoid residuals are all less than 10. Back/Spine straight leg raise negative bilaterally Extremity no calf tenderness and no pedal edema Extremity Narrative: No clubbing and no cyanosis. Skin Skin Narrative: He has some skin tears and bruises from the fall. NO cellulitis observed. IV site in the L antecubital fossa is reddened and tender but, no purulent DC and no superficial thormbophlebitis observed. Rashes: no rashes Neuro oriented x3, CN's II-XII intact bilaterally, moves all extremities, no focal motor deficits and no sensory deficits noted Neuro Narrative: No visual field cuts. Nystagmus but, denies vertigo. no extinction. Oriented to mmonth, year, placebut, told me he is here for a heart attack and not a stroke. Had some sundowning last night. Psych cooperative, affect normal, speech normal, denies hallucinations, denies homicidal ideation and denies suicidal ideation Psych Narrative: Had some sundowning last night. He is impulsive and has poor safety awareness. Confused at times. Results Lab / Micro Data 09/24/24 13:44 09/24/24 13:44 Assessment & Plan Assessment/Plan (1) Debility: (2) Cerebellar stroke: (3) Gait instability: (4) Cognitive dysfunction: (5) Sundowning: (6) History of malignant carcinoid tumor: (7) Short bowel syndrome: QUALIFIERS: Short bowel syndrome type: unspecified whether colon in continuity Qualified Code(s): K90.829 - Short bowel syndrome, unspecified (8) Hypothyroidism: QUALIFIERS: Hypothyroidism type: acquired Qualified Code(s): E03.9 - Hypothyroidism, unspecified (9) Chronic narcotic use: (10) Chronic abdominal pain: (11) Chronic renal failure, stage 3 (moderate): QUALIFIERS: Chronic kidney disease stage 3 subtype: unspecified whether 3a or 3b Qualified Code(s):N18.30 - Chronic kidney disease, stage 3 unspecified (12) History of depression: (13) Obesity (BMI 30.0-34.9): (14) Allergic rhinitis: QUALIFIERS: Allergic rhinitis trigger: unspecified Allergic rhinitis seasonality: non-seasonal Qualified Code(s): J30.89 - Other allergic rhinitis (15) Dyslipidemia: (16) Benign essential HTN: (17) Grade I diastolic dysfunction: (18) Mild concentric left ventricular hypertrophy: PLAN: Plan PLAN PT for gait stability OT for ADL's ST for evaluation Analgesics as needed Bowel protocol Fall precautions Assess for Anxiety/Depression GI prophylaxis -not necessary at this time. He denies history of peptic ulcer disease and he also denies heartburn, nausea/vomiting/epigastric pain. DVT prophylaxis with enoxaparin 40 mg subcu daily Follow up with PCP and neurology following DC from [facility] Rehab AM lab including CMP, CBC, Mag and Phos-all personally reviewed Permissive hypertension for now but in another 3 to 4 days will want to see the blood pressure lessthan 140/80. Charges/Coding Visit Charges Inpatient E&M: 22501 Init Hosp L3 09/25/241921 Cosigner Signature (if applicable): CC: Dr. Pamella Zuniga, ; [facility]~ Signed [facility]05-22-2025 [facility] Medical Records Department [address] [place] [id number] History Physical Exam 09/24/24 1045 MR#: [id number] Acct: [id number] Name: ITZEL GOMEZ Rep #: [id number] : 1945 79 From: Pamella Zuniga DO PCP: [facility] Status:ADM IN Location: [address] HPI - General General Date of Admission: 09/23/24 Date of Service: 09/24/24 Chief Complaint: POST STROKE DEBILITY HPI Narrative ITZEL GOMEZ, is a 79 YO M with a PMH of anxiety/depression, chronic kidney disease stage III, obesity, 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 He had a mechanical fall which precipitated the visit to the emergency department. He additionally complained of a headache. He actually had vertigo in the ED when attempting to move. A stat noncontrast CT brain showed no acute findings. There was generalized brain atrophy and small vessel ischemic disease. CTA of the head and neck showed mild scattered atherosclerotic calcification of the anterior and posterior intracranial and extracranial circulation without hemodynamically significant stenosis. CT scan of the abdomen and pelvis showed a nonspecific lobulated isodense lesion in the pelvis measuring up to 3.4 cm. There was a mild esophageal hiatal hernia and fecal retention in the colon consistent with constipation. He had colonic diverticulosis with no evidence of diverticulitis. Chest x-ray showed mild basilar atelectasis with no evidence of pneumonia or pleural effusion. There were no acute findings. He was admitted to the hospitalist service for concern for a posterior circulation CVA. MRI of the brain done on 09/21/2024 showed an acute nonhemorrhagic infarct in the right cerebellum. There was mild to moderate nonspecific chronic white matter changes and mild generalized atrophy. Hemoglobin A1c was normal at 5.5. Total cholesterol was 175 with an LDL of 91 and an HDL of 61. Transthoracic echocardiogram showed mild concentric left ventricular hypertrophy with an EF of 60%. There was stage I diastolic dysfunction. There was no significant valvular heart disease and a bubble study was not done. Teleneurology consult was obtained and daily antiplatelet medication was recommended. They also recommended starting Lipitor at 40 mg daily for an LDL of 91. He was evaluated by therapy and had an unsteady gait. He was agreeable to acute rehab at discharge and he was transferred to the acute inpatient rehab unit at [facility] in the evening on 09/23/2024 for 3 hours of therapy daily to restore function/independence at or near his level prior to the stroke. [facility] Medical History (Updated 09/25/24 @ 19:[address] Pamella Zuniga, ) Mild concentric left ventricular hypertrophy Grade I diastolic dysfunction Chronic narcotic use Allergic rhinitis History of depression Hypothyroidism Obesity (BMI 30.0-34.9) Chronic renal failure, stage 3 (moderate) Chronic abdominal pain History of malignant carcinoid tumor Bilateral pneumonia History of COVID-19 Anxiety and depression Cancer Former smoker Hypertension Stroke/cerebrovascular accident Multiple metastatic carcinoid tumors Home Medications ???Medication ???Instructions ???Recorded ???Last Taken ???Type amlodipine 10 mg tablet 10 mg PO DAILY Blood pressure 90 0 09/20/20 09/23/24 Rx days #90 tabs loratadine 10 mg tablet 10 mg PO DAILY ALLERGIES 09/21/21 09/23/24 History aspirin 81 mg tablet 81 mg PO DAILY heart health 09/23/24 History colestipol 1 gram tablet 1 g PO BID cholesterol 09/20/24 History escitalopram oxalate 10 mg tablet 10 mg PO DAILY depression 5 09/23/24 History levothyroxine 25 mcg tablet 25 mcg PO DAILY thyroid 09/20/24 0 09/23/24 History (Levo-T) loperamide 2 mg tablet (Diamode) 4 mg PO BID diarrhea 09/20/2409/03 History octreotide acetate 30 mg IM Q28D cancer 09/20/2409/04 History potassium chloride 20 mEq 20 meq PO DAILY supplement 5 09/23/24 History tablet,extended release telotristat ethyl 250 mg tablet 250 mg PO TID diarrhea 09/20/24 History (Xermelo) acetaminophen 325 mg tablet 650 mg PO Q6H PRN pain/fever 09/23 Unknown History atorvastatin 40 mg tablet 40 mg PO QHS cholsterol #0 tabs 09/22/24 Rx enoxaparin 40 mg/0.4 mL 40 mg (0.4 mL) subcut DAILY 09/23/24 Rx subcutaneous syringe prophylaxis #0 mL food supplemt, lactose-reduced 120 ml PO TIDCM (more content not included)... [facility]05-21-2025 Discharge summary [facility] Medical Records Department [address] [facility] [place] [address] Discharge Summary 09/23/24 1656 MR#: [id number] Acct: [id number] Name: ITZEL GOMEZ Rep #:[id number] : 1945 79 From: Rebecca Lima DO PCP: [facility] Status:ADM IN Location: [facility] [id number] Providers Date of Admission: 09/21/24 Date of Discharge: 09/23/24 Primary Care Physician: [facility] Reason For Visit: ? TIA/CVA, ELEVATED TROP UNCLEAR SIGNIFICANCE Diagnosis Discharge Diagnosis (1) Cerebellar stroke: Status: Acute Code(s): I63.9 - Cerebral infarction, unspecified (2) Nausea & vomiting: Status: Acute Code(s): R11.2 - Nausea with vomiting, unspecified (3) Dizziness: Status: Acute Code(s): R42 - Dizziness and giddiness Medications at Discharge Home Medications amlodipine 10 mg tablet 10 mg PO DAILY Blood pressure 90 days #90 tabs 09/20/20 loratadine 10 mg tablet 10 mg PO DAILY ALLERGIES 09/21/21 aspirin 81 mg tablet 81 mg PO DAILY heart health 09/20/24 colestipol 1 gram tablet 1 g PO BID cholesterol 09/20/24 escitalopram oxalate 10 mg tablet 10 mg PO DAILY depression 09/20/24 levothyroxine 25 mcg tablet (Levo-T) 25 mcg PO DAILY thyroid 09/20/24 loperamide 2 mg tablet (Diamode) 4 mg PO BID diarrhea 09/20/24 octreotide acetate 30 mg IM Q28D 09/20/24 potassium chloride 20 mEq tablet,extended release 20 meq PO DAILY supplement 09/20/24 telotristat ethyl 250 mg tablet (Xermelo) 250 mg PO TID diarrhea 09/20/24 atorvastatin 40 mg tablet 40 mg PO QHS #0 tabs 09/23/24 enoxaparin 40 mg/0.4 mL subcutaneous syringe 40 mg (0.4 mL) subcut DAILY #0 mL 09/23/24 food supplemt, lactose-reduced 0.08 gram-1.5 kcal/mL oral liquid (Ensure Plus High Protein) 120 ml PO TIDCM #0 mL 09/23/24 oxycodone-acetaminophen 5 mg-325 mg tablet 1 tab PO TID 1 day #3 tabs 09/23/24 Hospital Course Procedures 2-D Echocardiogram, EKG and - (CT abdomen pelvis/CT brain/CTA head neck/chest x- ray/MRI brain) Summary of Care Provided Minutes Spent on Discharge: 41 Hospital Course: Mr. Gomez is a 79-year-old white male who presents emergency department [facility] on09/20/2024 with a chief complaint of falls and dizziness aswell as nausea vomiting. Patient reportedthat he had some nausea and lightheadedness as well as dizziness that resulted in some emesis starting on the morning of presentation that resulted in a mechanical fall. This led to evaluation in theemergency department. Patient also reported generalized headache on the top of his head that felt like pressure. He had no nausea or vomiting at rest emergency department but tried to get up which caused more nausea and 1 bout of emesis. NIH was 0. Vital signs on presentation showed a temperature of 97.6, heart rate 57, blood pressure was 191/93 with a repeat of 162/84 and a pulse ox of 96% on room air. He had a mild leukocytosis on his CBCbut was otherwise unremarkable. Chemistry revealed elevated serum creatinine at1.64 but this is not far off his baseline serum creatinine. Initial troponin was 56. Delta troponin was 58. CT of the abdomen pelvis was performed and showed nonspecific lobulated isodense lesion in the pelvis that was 4 3.4 cm. Patient has a known history of metastatic carcinoid tumor in involving the boweland per discussion with his this is a known mass. He also had mild esophageal hiatal hernia with fecal retention in the colon consistent with constipation and colonic diverticulosis without diverticulitis. CT the brain shows small vessel changes but no acute abnormality. CTA of the head and neck showed no significant stenosis in bilateral internal carotid arteries and very mild scattered atherosclerotic calcifications in the anterior and posterior intracranial and extracranial circulation. Chest x-ray was negative for any acute findings. Patient was admitted with stroke protocol and placed on IV fluids due to nausea and vomiting. We added a scopolamine patch which significantly helped his nausea and vomiting. An MRI of the brain was pursued and showed an acute nonhemorrhagic infarct of the right cerebellum with mild to moderate nonspecific chronic white matter changes and mild generalized atrophy. No enhancing lesions were noted. Echocardiogram showed an EF of 60% with mild concentric LVH and stage I diastolic dysfunction. He was evaluated by neurologyand they recommended event monitor at discharge which was prescribed. On admission he was placed on aspirin and atorvastatin. His LDL was 91 and his hemoglobin A1c was 5.5. We did restart his antihypertensives on 09/22/2024 his blood pressures were somewhat labile and will need ongoing evaluation. He may need additional antihypertensives. He also was bradycardic especially at night but was asymptomatic through his stay in on the monitor appeared to be sinus bradycardia without any symptoms.Again event monitor was ordered after discharge and will be pursued. Initially thought the patient would be able to go home however with his dizziness he was fairly unsteady and agreeable to go toacute rehab. She was excepted to the acute rehab unit and able to be dischargedon 09/23/2024. Discharge diagnoses: Dizziness secondary to acute right cerebellar ischemic stroke Nausea and vomiting-resolved Constipation-resolved Elevated troponin secondary to demand ischemia Metastatic stage IV carcinoid tumor-follows at [place] CKD stage II Hypothyroidism Essential hypertension Allergic rhinitis Mood disorder Anxiety Depression History of tobacco abuse Physical Exam Const alert, oriented x3, no apparent distress and average body habitus; Negative for healthy appearing or well nourished Constitutional Narrative: Thin, older, white male, frail-appearing, sitting up in bed watching television,appears comfortable, nontoxic General Appearance: cooperative, comfortable, well kempt and well developed Exam Limitations: no limitations Nutritional Appearance: thin HEENT normocephalic, head/scalp atraumatic and moist oral mucous membranes Eyes conjunctivae normal Eyes Narrative: No scleral icterus Neck supple Neck Narrative: Trachea midline Resp normal respiratory effort, no retractions, no use of accessory muscles and clearto auscultation bilaterally Auscultation: Negative for rales, rhonchi or wheezes Cardio regular rate, regular rhythm, S1 normal heart sound, S2 normal heart sound, no murmurs, no rub, no gallops and no clicks GI soft to palpation GI Narrative: Scaphoid abdomen, bowel sounds are normal active, no significant tenderness, no distention, abdomenis soft Extremity no clubbing, cyanosis or edema Extremity Narrative: Decreased lean muscle mass Neuro oriented x3, moves all extremities and no focal motor deficits Speech: speech normal Psych Psych Narrative: Very pleasant, interacts appropriately Weight / BMI Weight Weight: 76.2 kg Body Mass Index (BMI) 22.8 ABG / Lab / Microbiology Data 09/22/24 05:43 09/23/24 05:23 Laboratory: Laboratory Results - last 24 hr 09/23/24 05:23: Sodium 140, Potassium 3.8, Chloride 107, Carbon Dioxide 21.8, Anion Gap 11, BUN 16,Creatinine 1.66 H, Estim Creat Clear Calc 38.89 L, Est GFR(MDRD) Non-Af 42 L, BUN/Creatinine Ratio 9.8 L, Glucose 94, Calcium 7.8, Phosphorus 2.6 L D/C Instructions Discharge Diet: Low fat / Low cholesterol Discharge Activity: Return to Normal Activity and No Restrictions DC O2, CPAP, BIPAP Needs Home O2 Discharge instructions: No Meaningful Use Info Meaningful Use Meaningful Use Diagnoses (Choose all that apply): Ischemic CVA CVA Therapy Assessed for PT,OT and/or ST?: Yes Ischemic Stroke Antithrombotic order at d/c?: Yes Dx of Atrial fib/flutter?: No Statin Dosing Therapy Reference: STATIN DOSE THERAPY REFERENCE: * Patients > 75 years receive moderate or high dose statin therapy. * Patients 75 years or YOUNGER should receive HIGH intensity statin dose unless contraindicated. You will be required to document reason for non-treatment if statin daily dose does not meet guidelines. HIGH DOSE STATIN THERAPY DAILY Atorvastatin > than or = to 40 mg Rosuvastatin > than or = to 20 mg Amlodipine + Atorvastatin > than or = to 2.5/40 mg Ezetimibe + Simvastatin 10/80 mg Simvastatin 80mg Statins at discharge?: Yes Primary Dx Acute Ischemic CVA?: Yes Discharge Plan Admission Admit Date/Time: 09/21/24 14:45 Primary Reason for Your Visit: Dizziness/nausea and vomiting Attending Provider: Rebecca Lima Primary Care Provider: [facility] Consulting Providers: Linda Falcon Instructions Additional Instructions / Restrictions: 1. You will need to follow-up with neurology. You can call and follow-up with the neurologist belowor follow-up with neurology at the [place] which ever you prefer Discharge Orders/Prescriptions Prescriptions: New atorvastatin 40 mg Tablet 40 mg PO QHS Qty: 0 0RF enoxaparin 40 mg/0.4 mL Syringe 40 mg subcut DAILY Qty: 0 0RF Ensure Plus High Protein 0.08 gram-1.5 kcal/mL Liquid 120 ml PO TIDCM Qty: 0 0RF Continued amlodipine 10 mg Tablet 10 mg PO DAILY 90 Days Qty: 90 0RF loratadine 10 mg Tablet 10 mg PO DAILY octreotide acetate 30 mg suspension 30 mg IM Q28D Patient Comments: PT DUE YESTERDAY 09/19/24. PT BROUGHT. colestipol 1 gram tablet 1 g PO BID Patient Comments: RX SIG STATES 2QD, PT CAN ONLY TOLERATE 1QD Xermelo 250 mg tablet 250 mg PO TID Rx Instructions: must administer with a meal/food loperamide [Diamode] 2 mg tablet 4 mg PO BID levothyroxine [Levo-T] 25 mcg tablet 25 mcg PO DAILY aspirin 81 mg tablet 81 mg PO DAILY escitalopram oxalate 10 mg tablet 10 mg PO DAILY potassium chloride 20 mEq tablet extended release 20 meq PO DAILY Changed oxycodone-acetaminophen 5-325 mg tablet 1 tab PO TID 1 Days Qty: 3 0RF Patient Comments: TAKES INSTEAD OF SR. PT TAKES APPROX 3 TIMES DAILY Other Ambulatory Orders: 30 Day Event Recorder Preventi (Urgent) Timeframe: 1 Day Facility: [facility] - Location: Cardiovascular Services Ordered By: Dr. Rebecca Lima Referrals / Follow Up: Ovidio Mccabe MD [Non-Staff -Ordering Privileges] - Within 1 Month [facility] [Primary Care Provider] - Within 1 Week (1 week after d/c) Disposition Disposition (needs filled in before D/C Order can be placed): Inpatient Rehab Unit/Facility Charges/Coding Visit Charges Inpatient E&M: 81584 Disch Hosp >30min 09/23/24 0103 Cosigner Signature (if applicable): CC: Dr. Rebecca Lima DO; Dr. Ovidio Mccabe MD; [facility]~ Signed [facility]05-21-2025 [facility] Medical Records Department [facility] [place] [address] Discharge Summary 09/23/24 1656 MR#: [id number] Acct: [id number] Name: ITZEL GOMEZ Rep #: [id number] : 1945 79 From: Rebecca Lima DO PCP: [facility] Status:ADM IN Location: [facility] [id number] Providers Date of Admission: 09/21/24 Date of Discharge: 09/23/24 Primary Care Physician: [facility] Reason For Visit: ? TIA/CVA, ELEVATED TROP UNCLEAR SIGNIFICANCE Diagnosis Discharge Diagnosis (1) Cerebellar stroke: Status: Acute Code(s): I63.9 - Cerebral infarction, unspecified (2) Nausea vomiting: Status: Acute Code(s): R11.2 - Nausea with vomiting, unspecified (3) Dizziness: Status: Acute Code(s): R42 - Dizziness and giddiness Medications at Discharge Home Medications amlodipine 10 mg tablet 10 mg PO DAILY Blood pressure 90 days #90 tabs 09/20/20 loratadine 10 mg tablet 10 mg PO DAILY ALLERGIES 09/21/21 aspirin 81 mg tablet 81 mg PO DAILY heart health 09/20/24 colestipol 1 gram tablet 1 g PO BID cholesterol 09/20/24 escitalopram oxalate 10 mg tablet 10 mg PO DAILY depression 09/20/24 levothyroxine 25 mcg tablet (Levo-T) 25 mcg PO DAILY thyroid 09/20/24 loperamide 2 mg tablet (Diamode) 4 mg PO BID diarrhea 09/20/24 octreotide acetate 30 mg IM Q28D 09/20/24 potassium chloride 20 mEq tablet,extended release 20 meq PO DAILY supplement 09/20/24 telotristat ethyl 250 mg tablet (Xermelo) 250 mg PO TID diarrhea 09/20/24 atorvastatin 40 mg tablet 40 mg PO QHS #0 tabs 09/23/24 enoxaparin 40 mg/0.4 mL subcutaneous syringe 40 mg (0.4 mL) subcut DAILY #0 mL 09/23/24 food supplemt, lactose-reduced 0.08 gram-1.5 kcal/mL oral liquid (Ensure Plus High Protein) 120 ml PO TIDCM #0 mL 09/23/24 oxycodone-acetaminophen 5 mg-325 mg tablet 1 tab PO TID 1 day #3 tabs 09/23/24 Hospital Course Procedures 2-D Echocardiogram, EKG and - (CT abdomen pelvis/CT brain/CTA head neck/chest x- ray/MRI brain) Summary of Care Provided Minutes Spent on Discharge: 41 Hospital Course: Mr. Gomez is a 79-year-old white male who presents emergency department [facility] on 09/20/2024 with a chief complaint of falls and dizziness as well as nausea vomiting. Patient reported that he had some nausea and lightheadedness as well as dizziness that resulted in some emesis starting on the morning of presentation that resulted in a mechanical fall. This led to evaluation in the emergency department. Patient also reported generalized headache on the top of his head that felt like pressure. He had no nausea or vomiting at rest emergency department but tried to get up which caused more nausea and 1 bout of emesis. NIH was 0. Vital signs on presentation showed a temperature of 97.6, heart rate 57, blood pressure was 191/93 with a repeat of 162/84 and a pulse ox of 96% on room air. He had a mild leukocytosis on his CBC but was otherwise unremarkable. Chemistry revealed elevated serum creatinine at 1.64 but this is not far off his baseline serum creatinine. Initial troponin was 56. Delta troponin was 58. CT of the abdomen pelvis was performed and showed nonspecific lobulated isodense lesion in the pelvis that was 4 3.4 cm. 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 He also had mild esophageal hiatal hernia with fecal retention in the colon consistent with constipation and colonic diverticulosis without diverticulitis. CT the brain shows small vessel changes but no acute abnormality. CTA of the head and neck showed no significant stenosis in bilateral internal carotid arteries and very mild scattered atherosclerotic calcifications in the anterior and posterior intracranial and extracranial circulation. Chest x-ray was negative for any acute findings. Patient was admitted with stroke protocol and placed on IV fluids due to nausea and vomiting. We added a scopolamine patch which significantly helped his nausea and vomiting. An MRI of the brain was pursued and showed an acute nonhemorrhagic infarct of the right cerebellum with mild to moderate nonspecific chronic white matter changes and mild generalized atrophy. No enhancing lesions were noted. Echocardiogram showed an EF of 60% with mild concentric LVH and stage I diastolic dysfunction. He was evaluated by neurology and they recommended event monitor at discharge which was prescribed. On admission he was placed on aspirin and atorvastatin. His LDL was 91 and his hemoglobin A1c was 5.5. We did restart his antihypertensives on 09/22/2024 his blood pressures were somewhat labile and will need ongoing evaluation. He may need additional antihypertensives. He also was bradycardic especially at night but was asymptomatic through his stay in on the monitor appeared to be sinus bradycardia without any symptoms. Again event monitor was orde (more content not included)...[facility]05-20-2025 Progress note Author Rebecca Lima [facility] Note Date/Time September 22, 2024 4:08p m [facility] Medical Records Department [address] [place] [address] Progress Note - Hospitalist 09/22/24 0743 MR#: [id number] Acct: [id number] Name: ITZEL GOMEZ Rep #:[id number] : 1945 79 From: Rebecca Lima DO PCP: [facility] Status:ADM IN Location: [place] [address] Reason for Visit Reason for Visit: Dizziness/nausea and vomiting Subjective Subjective Patient reports that his nausea is better. Tolerated clears this morning without any significant problem. Still some dizziness issues with positional changes. We discussed that this may be more of a chronic thing with his stroke affecting his cerebellum. Will try to advance diet to full's and then regular diet if he can tolerate. Objective Data Objective Data Vital Signs: Vital Signs Temp Pulse Resp BP Pulse Ox O2 Del Method 98.2 F 42 L 18 135/70 H 97 Room Air 09/22/24 06:00 09/22/24 06:00 09/22/24 06:00 09/22/24 06:00 09/22/24 06:00 09/22/24 06:00 Oxygen Delivery Method Room Air Weight: 76 kg Body Mass Index (BMI) 22.7 Intake & Output: Intake and Output for Last 24 Hours 09/20/24 09/21/24 09/22/24 23:59 23:59 23:59 Intake Total 2110 / 2110 1320 / 1320 1000 / 1000 Output Total 350 / 350 1400 / 1400 100 / 100 Balance 1760 / 1760 -80 / -80 900 / 900 Lab / Micro Data 09/22/24 05:43 09/22/24 05:43 Labs: Laboratory Results - last 24 hr 09/22/24 05:43: WBC 8.4, RBC 3.77 L, Hgb 11.9 L, Hct 35.2 L, MCV 93.4, MCH 31.6,MCHC 33.8, RDW Std Deviation 45.0 H, RDW Coeff of Gretel 13.2, Plt Count 171, MPV 9.3, Immature Gran % (Auto) 0.200, Neut % (Auto) 79.2 H, Lymph % (Auto) 11.5 L, [place] % (Auto) 5.6, Eos % (Auto) 2.9, Baso % (Auto) 0.6, Absolute Neuts (auto) 6.7, Absolute Lymphs (auto) 0.97, Nucleated RBC % 0, Sodium 138, Potassium 4.0, Chloride 111 H, Carbon Dioxide 17.2 L, Anion Gap 10, BUN 17, Creatinine 1.51 H, Estim Creat Clear Calc 42.64 L, Est GFR (MDRD) Non-Af 47 L, BUN/Creatinine Ratio11.2, Glucose 87, Calcium 7.9, Phosphorus 2.3 L, Magnesium 1.8, Total Bilirubin 0.50, AST 36, ALT 19, Alkaline Phosphatase 68, Total Protein 5.0 L, Albumin 3.1 L, Globulin 2.0 L, Albumin/Globulin Ratio 1.6 Radiography Diagnostic Testing: Radiology Impression Echocardiogram 09/20/24 18:40 Interpretation Summary Normal LV size. Mild concentric left ventricular hypertrophy. Left ventricular systolic function is normal. The left ventricular ejection fraction is 60 %. Stage 1 diastolic dysfunction. Ordering Physician: Linda Falcon Referring Physician: [facility] Performed By: Letha Elias RDCS Brain MRI 09/21/24 09:00 IMPRESSION: 1. Acute nonhemorrhagic infarct right cerebellum. 2. [id number] nonspecific chronic white matter changes, likely chronic small-vessel ischemic change. 3. Mild generalized atrophy. 4. No enhancing lesions [facility] Physical Exam Const alert, oriented x3, no apparent distress and average body habitus; Negative for healthy appearing or well nourished Constitutional Narrative: Thin, older, white male, frail-appearing, sitting up in a chair at the bedside, nursing at bedside HEENT head/scalp atraumatic and moist oral mucous membranes HEENT Narrative: Mallampati is 2 Head and Scalp: normocephalic Neck supple Resp normal respiratory effort, no retractions, no use of accessory muscles and clearto auscultation bilaterally Auscultation: Negative for rales, rhonchi or wheezes Cardio regular rate, regular rhythm, S1 normal heart sound, S2 normal heart sound, no murmurs, no rub, no gallops and no clicks GI GI Narrative: Scaphoid abdomen, bowel sounds are normal active, no significant tenderness, no distention, abdomen is soft Extremity no clubbing, cyanosis or edema Extremity Narrative: Decreased lean muscle mass Neuro oriented x3, moves all extremities and no focal motor deficits Psych Psych Narrative: Affect is slightly flat but patient makes good eye contact and interacts appropriately, very pleasant Assessment & Plan Assessment/Plan (1) Cerebellar stroke: (2) Nausea & vomiting: (3) Dizziness: PLAN: Plan Dizziness secondary to right acute cerebellar ischemic stroke - MRI shows acute right cerebellar infarct - Continue aspirin 81 mg daily - Continue Lipitor 40 mg daily - Echocardiogram done and shows an EF of 60% with stage I diastolic dysfunction no significant valvular abnormalities, mild concentric LVH - NIH remains 0 - Will restart home antihypertensives with goal blood pressure being 130/80 or less - Orthostatic vitals are unremarkable - Will need outpatient neurology follow-up and event monitor at discharge - Neurology was consulted and recommendations given--> they have signed off today Nausea and vomiting/constipation - Improved - Advance diet - Continue scopolamine patch - Continue IV therapy - Continue clear liquid diet but no advancement till nausea improves - May need repeat CT versus consultation with GI if does not clinically improve - Hold home antidiarrheal medication due to constipation noted on CT Hypophosphatemia - Sodium Phos bolus given - Recheck in a.m. 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 Celis - Continue home regimen CKD of unknown type - Serum creatinine is down from admission from 0.64-1.49 - Has been as high as 3.17 previously in 2021 - Continue to monitor - Discontinue IV fluids Hypothyroidism - TSH 2.040 - cont levothyroxine Essential hypertension -Restart home amlodipine -Goal blood pressure is to be less than 130/80 ideally Allergic rhinitis - Continue home loratadine and fluticasone Mood disorder/anxiety/depression - Continue home aripiprazole - Continue Lexapro History of tobacco abuse - Ongoing cessation DVT prophylaxis - Continue subcu Lovenox CODE STATUS - Full code per discussion at admission ++ updated on at 355 PM on 09/22/2024. Charges/Coding Visit Charges Inpatient E&M: 67661 Subs Hosp L2 NIHSS NIHSS Nursing Documentation NIHSS Nursing Documentation: NIHSS: Ischemic Stroke/TIA Start: 09/20/24 18:40 Text: For PCU Patients: NIH and Neuro Check every 4 Status: Active hours, PRN and with change in RN caregiver. Freq: [id number] Protocol: Activity Type Activity Date Activity User E-sign Co-sign Detail Recorded Client Recorded Date Recorded By Document 09/22/24 06:00 BONNIE [id number] 09/22/24 06:00 BONNIE 09/22/24 06:00 NIH Stroke Scale [NIHSS] A score of 0 is normal or asymptomatic . Total possible score is 42. Inpatient: RN or Physician to activate a stroke alert for onset of new stroke symptoms or with NIHSS increase >/= 3 points. Following change in neurological status, NIHSS will be performed per physician order or more frequently PRN. -1a. Level of Consciousness 0 - Alert; keenly responsive -1b. LOC Questions 0 - Answers BOTH questions correctly -1c. LOC Commands 0 - Performs BOTH tasks correctly -2. Best Gaze 0 - Normal -3. Visual 0 - No visual loss -4. Facial Palsy 0 - Normal symmetrical movements -5a. Left Arm 0 - No drift; arm holds 90 ( or 45) degrees for full 10 seconds -5b. Right Arm 0 - No drift; arm holds 90 ( or 45) degrees for full 10 seconds -6a. Left Leg 0 - No drift; leg holds 30- degree position for full 5 seconds -6b. Right Leg 0 - No drift; leg holds 30- degree position for full 5 seconds -7. Limb Ataxia 0 - Absent -8. Sensory 0 - Normal; no sensory loss -9. Best Language 0 - No aphasia; normal -10. Dysarthria 0 - Normal -11. Extinction and Inattention 0 - No abnormality -Total 0 Query Text:A score of 0 is normal or asymptomatic. Total possible score is 42 . ED: Notify Physician for NIHSS increase by > / = 3 points. Inpatient: RN or Physician to activate a stroke alert for NIHSS increase of > / = 3 points. Coma Scale [Assess] -Eye Opening Spontaneous -Motor Obeys Commands -Verbal Oriented [Total] -Coma Scale Total 15 09/22/24 1608 <Electronically signed by Rebecca Lima DO> Cosigner Signature (if applicable): CC: ~ Signed [facility] Work Phone: [phone] 537-260305-20-2025 Progress note [facility] Medical Records Department [address] [place] [address] Progress Note - Hospitalist 09/22/24 0743 MR#: [id number] Acct: [id number] Name: ITZEL GOMEZ Rep #:[id number] : 1945 79 From: Rebecca Lima DO PCP: [facility] Hospital Status:ADM IN Location: [place] [address]- Reason for Visit Reason for Visit: Dizziness/nausea and vomiting Subjective Subjective Patient reports that his nausea is better. Tolerated clears this morning without any significant problem. Still some dizziness issues with positional changes. We discussed that this may be more of a chronic thing with his stroke affecting his cerebellum. Will try to advance diet to full's and then regular diet if he can tolerate. Objective Data Objective Data Vital Signs: Vital Signs Temp Pulse Resp BP Pulse Ox O2 Del Method 98.2 F 42 L 18 135/70 H 97 Room Air 09/22/24 06:00 09/22/24 06:00 09/22/24 06:00 09/22/24 06:00 09/22/24 06:00 09/22/24 06:00 Oxygen Delivery Method Room Air Weight: 76 kg Body Mass Index (BMI) 22.7 Intake & Output: Intake and Output for Last 24 Hours 09/20/24 09/21/24 09/22/24 23:59 23:59 23:59 Intake Total 2110 / 2110 1320 / 1320 1000 / 1000 Output Total 350 / 350 1400 / 1400 100 / 100 Balance 1760 / 1760 -80 / -80 900 / 900 Lab / Micro Data 09/22/24 05:43 09/22/24 05:43 Labs: Laboratory Results - last 24 hr 09/22/24 05:43: WBC 8.4, RBC 3.77 L, Hgb 11.9 L, Hct 35.2 L, MCV 93.4, MCH 31.6,MCHC 33.8, RDW Std Deviation 45.0 H, RDW Coeff of Gretel 13.2, Plt Count 171, MPV 9.3, Immature Gran % (Auto) 0.200, Neut % (Auto) 79.2 H, Lymph % (Auto) 11.5 L, [place] % (Auto) 5.6, Eos % (Auto) 2.9, Baso % (Auto) 0.6, Absolute Neuts (auto) 6.7, Absolute Lymphs (auto) 0.97, Nucleated RBC % 0, Sodium 138, Potassium 4.0, Chloride 111 H, Carbon Dioxide 17.2 L, Anion Gap 10, BUN 17, Creatinine 1.51 H, Estim Creat Clear Calc42.64 L, Est GFR (MDRD) Non-Af 47 L, BUN/Creatinine Ratio11.2, Glucose 87, Calcium 7.9, Phosphorus 2.3 L, Magnesium 1.8, Total Bilirubin 0.50, AST 36, ALT 19, Alkaline Phosphatase 68, Total Protein 5.0 L, Albumin 3.1 L, Globulin 2.0 L, Albumin/Globulin Ratio 1.6 Radiography Diagnostic Testing: Radiology Impression Echocardiogram 09/20/24 18:40 Interpretation Summary Normal LV size. Mild concentric left ventricular hypertrophy. Left ventricular systolic function is normal. The left ventricular ejection fraction is 60 %. Stage 1 diastolic dysfunction. Ordering Physician: Linda Falcon Referring Physician: [facility] Performed By: Letha Elias RDCS Brain MRI 09/21/24 09:00 IMPRESSION: 1. Acute nonhemorrhagic infarct right cerebellum. 2. Npyi-rh-pivxswfg nonspecific chronic white matter changes, likely chronic small-vessel ischemic change. 3. Mild generalized atrophy. 4. No enhancing lesions Reading [facility] Physical Exam Const alert, oriented x3, no apparent distress and average body habitus; Negative for healthy appearing or well nourished Constitutional Narrative: Thin, older, white male, frail-appearing, sitting up in a chair at the bedside, nursing at bedside HEENT head/scalp atraumatic and moist oral mucous membranes HEENT Narrative: Mallampati is 2 Head and Scalp: normocephalic Neck supple Resp normal respiratory effort, no retractions, no use of accessory muscles and clearto auscultation bilaterally Auscultation: Negative for rales, rhonchi or wheezes Cardio regular rate, regular rhythm, S1 normal heart sound, S2 normal heart sound, no murmurs, no rub, no gallops and no clicks GI GI Narrative: Scaphoid abdomen, bowel sounds are normal active, no significant tenderness, no distention, abdomenis soft Extremity no clubbing, cyanosis or edema Extremity Narrative: Decreased lean muscle mass Neuro oriented x3, moves all extremities and no focal motor deficits Psych Psych Narrative: Affect is slightly flat but patient makes good eye contact and interacts appropriately, very pleasant Assessment & Plan Assessment/Plan (1) Cerebellar stroke: (2) Nausea & vomiting: (3) Dizziness: PLAN: Plan Dizziness secondary to right acute cerebellar ischemic stroke - MRI shows acute right cerebellar infarct - Continue aspirin 81 mg daily - Continue Lipitor 40 mg daily - Echocardiogram done and shows an EF of 60% with stage I diastolic dysfunction no significant valvular abnormalities, mild concentric LVH - NIH remains 0 - Will restart home antihypertensives with goal blood pressure being 130/80 or less - Orthostatic vitals are unremarkable - Will need outpatient neurology follow-up and event monitor at discharge - Neurology was consulted and recommendations given--> they have signed off today Nausea and vomiting/constipation - Improved - Advance diet - Continue scopolamine patch - Continue IV therapy - Continue clear liquid diet but no advancement till nausea improves - May need repeat CT versus consultation with GI if does not clinically improve - Hold home antidiarrheal medication due to constipation noted on CT Hypophosphatemia - Sodium Phos bolus given - Recheck in a.m. 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 Celis - Continue home regimen CKD of unknown type - Serum creatinine is down from admission from 0.64-1.49 - Has been as high as 3.17 previously in 2021 - Continue to monitor - Discontinue IV fluids Hypothyroidism - TSH 2.040 - cont levothyroxine Essential hypertension -Restart home amlodipine -Goal blood pressure is to be less than 130/80 ideally Allergic rhinitis - Continue home loratadine and fluticasone Mood disorder/anxiety/depression - Continue home aripiprazole - Continue Lexapro History of tobacco abuse - Ongoing cessation DVT prophylaxis - Continue subcu Lovenox CODE STATUS - Full code per discussion at admission ++ updated on at 355 PM on 09/22/2024. Charges/Coding Visit Charges Inpatient E&M: 13920 Subs Hosp L2 NIHSS NIHSS Nursing Documentation NIHSS Nursing Documentation: NIHSS: Ischemic Stroke/TIA Start: 09/20/24 18:40 Text: For PCU Patients: NIH and Neuro Check every 4 Status: Active hours, PRN and with change in RN caregiver. Freq: [id number] Protocol: Activity Type Activity Date Activity User E-sign Co-sign Detail Recorded Client Recorded Date Recorded By Document 09/22/24 06:00 BONNIE [id number] 09/22/24 06:00 BONNIE 09/22/24 06:00 NIH Stroke Scale [NIHSS] A score of 0 is normal or asymptomatic . Total possible score is 42. Inpatient: RN or Physician to activate a stroke alert for onset of new stroke symptoms or with NIHSS increase >/= 3 points. Following change in neurological status, NIHSS will be performed per physician order or more frequently PRN. -1a. Level of Consciousness 0 - Alert; keenly responsive -1b. LOC Questions 0 - Answers BOTH questions correctly -1c. LOC Commands 0 - Performs BOTH tasks correctly -2. Best Gaze 0 - Normal -3. Visual 0 - No visual loss -4. Facial Palsy 0 - Normal symmetrical movements -5a. Left Arm 0 - No drift; arm holds 90 ( or 45) degrees for full 10 seconds -5b. Right Arm 0 - No drift; arm holds 90 ( or 45) degrees for full 10 seconds -6a. Left Leg 0 - No drift; leg holds 30- degree position for full 5 seconds -6b. Right Leg 0 - No drift; leg holds 30- degree position for full 5 seconds -7. Limb Ataxia 0 - Absent -8. Sensory 0 - Normal; no sensory loss -9. Best Language 0 - No aphasia; normal -10. Dysarthria 0 - Normal -11. Extinction and Inattention 0 - No abnormality -Total 0 Query Text:A score of 0 is normal or asymptomatic. Total possible score is 42 . ED: Notify Physician for NIHSS increase by > / = 3 points. Inpatient: RN or Physician to activate a stroke alert for NIHSS increase of > / = 3 points. Coma Scale [Assess] -Eye Opening Spontaneous -Motor Obeys Commands -Verbal Oriented [Total] -Coma Scale Total 15 09/22/24 1608 Cosigner Signature (if applicable): CC: ~ Signed [facility]05-19-2025 Progress note Author Rebecca Lima [facility] Note Date/Time September 21, 2024 8:06p m [facility] Medical Records Department [address] [place] [address] Progress Note - Hospitalist 09/21/24 1245 MR#: [id number] Acct: [id number] Name: ITZEL GOMEZ Rep #:[id number] : 1945 79 From: Rebecca Lima DO PCP: [facility] Hospital Status:ADM IN Location: [id number]- 1 Reason for Visit Reason for Visit: Nausea and vomiting /Dizziness Subjective Subjective Patient reports he typically does not have nausea and vomiting. This appears luis alberto new. 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 Has had resection and follows at the [facility]. Was found to havean acute stroke and treatment ongoing. Biggest problem has been ongoing nausea and vomiting. Not able to eat much right now. Still some lightheadedness with position changes. NIH has been 0. Objective Data Objective Data Vital Signs: Vital Signs Temp Pulse Resp BP Pulse Ox O2 Del Method 97.7 F L 48 L 18 156/77 H 96 Room Air 09/21/24 11:40 09/21/24 11:40 09/21/24 11:40 09/21/24 11:40 09/21/24 11:40 09/21/24 11:40 Oxygen Delivery Method Room Air Weight: 76.1 kg Body Mass Index (BMI) 22.7 Intake & Output: Intake and Output for Last 24 Hours 09/19/24 09/20/24 09/21/24 23:59 23:59 23:59 Intake Total 2110 / 2110 1110 / 1110 Output Total 350 / 350 750 / 750 Balance 1760 / 1760 360 / 360 Lab / Micro Data 09/21/24 05:36 09/21/24 05:36 Labs: Laboratory Results - last 24 hr 09/20/24 14:10: WBC 15.2 H, RBC 4.99, Hgb 15.8, Hct 47.0, MCV 94.2 H, MCH 31.7, MCHC 33.6, RDW Std Deviation 46.4 H, RDW Coeff of Gretel 13.3, Plt Count 213, MPV 8.9, Immature Gran % (Auto) 0.500, Neut % (Auto) 92.9 H, Lymph % (Auto) 3.0 L, [place] % (Auto) 3.2, Eos % (Auto) 0.1, Baso % (Auto) 0.3, Absolute Neuts (auto) 14.1 H, Absolute Lymphs (auto) 0.45 L, Nucleated RBC % 0, PT 13.2, INR 1.0, APTT27.0, Sodium 142, Potassium 4.6, Chloride 106, Carbon Dioxide 23.3, Anion Gap 12, BUN 22 H, Creatinine 1.64 H, Estim Creat Clear Calc 44.22 L, Est GFR (MDRD) Non-Af 42 L, BUN/Creatinine Ratio 13.6, Glucose 112 H, Calcium 8.9, Total Bilirubin 0.47, AST 28, ALT 19, Alkaline Phosphatase 103, Troponin T High Sens 60 H*, Total Protein 7.4, Albumin 4.5, Globulin 2.9, Albumin/Globulin Ratio 1.6,Lipase 23 09/20/24 14:54: POC Glucose 96 09/20/24 16:00: Urine Color Straw, Urine Clarity Clear, Urine pH 6.0, Ur Specific [place] 1.015, Urine Protein 30 H, Urine Glucose (UA) Normal, Urine Ketones Negative, Urine Occult Blood 25 H, Urine Nitrite Negative, Urine Bilirubin Negative, Urine Urobilinogen Normal, Ur Leukocyte Esterase Negative, Urine RBC 0 SEEN, Urine WBC 0 SEEN, Ur Squamous Epith Cells 0 SEEN, Calcium Oxalate Crystal RARE, Urine Bacteria 0 SEEN, Fine Granular Casts 0-5 SEEN, UrineMucus 0 SEEN 09/20/24 16:10: Phosphorus 2.7, Magnesium 1.6, Troponin T Hi Sens 2 Hr 56 H* 09/20/24 20:15: Troponin T Hi Sens 4Hr 58 H* 09/21/24 05:36: WBC 11.3 H, RBC 4.27 L, Hgb 13.6, Hct 40.1, MCV 93.9, MCH 31.9, MCHC 33.9, RDW Std Deviation 45.6 H, RDW Coeff of Gretel 13.3, Plt Count 188, MPV 8.9, Immature Gran % (Auto) 0.400, Neut % (Auto) 88.5 H, Lymph % (Auto) 6.3 L, [place] % (Auto) 3.9, Eos % (Auto) 0.5, Baso % (Auto) 0.4, Absolute Neuts (auto) 10.0 H, Absolute Lymphs (auto) 0.71 L, Nucleated RBC % 0, Sodium 140, Potassium 4.6, Chloride 109 H, Carbon Dioxide 20.5 L, Anion Gap 10, BUN 17, Creatinine 1.49 H, Estim Creat Clear Calc 43.27 L, Est GFR (MDRD) Non-Af 47 L, BUN/Creatinine Ratio 11.1, Glucose 116 H, Hemoglobin A1c 5.5, Calcium 8.2, TotalBilirubin 0.53, AST 21, ALT 13, Alkaline Phosphatase 85, Total Protein 5.9, Albumin 3.7, Globulin 2.1 L, Albumin/Globulin Ratio 1.8, Triglycerides 117, Cholesterol 175, LDL Cholesterol, Calc 91, VLDL Cholesterol 23, HDL Cholesterol 61, Cholesterol/HDL Ratio 2.89, TSH 2.040 Radiography Diagnostic Testing: Radiology Impression Abdomen/Pelvis CT 09/20/24 14:15 IMPRESSION: 1. Nonspecific lobulated isodense lesion in the pelvis measuring up to 3.4 cm. This could be enlarged lymph node. Neoplastic can not be excluded. Clinical correlation is recommended. 2. Mild esophageal hiatal hernia. 3. Fecal retention in the colon consistent with constipation. 4. Colonic diverticulosis without acute diverticulitis. Reading Location: [facility] Brain CT 09/20/24 14:15 IMPRESSION: 1. Small vessel ischemic/degenerative changes. 2. No acute intracranial hemorrhage, midline shift or mass effect. If symptoms persist, further evaluation with MRI is recommended. 3. Generalized brain atrophy. Reading Location: [facility] Head/Neck CTA 09/20/24 14:16 IMPRESSION: Mild scattered atherosclerotic calcification of the anterior and posterior intracranial and extracranial circulation without hemodynamically significant stenosis. Reading Location[facility] Chest X-Ray 09/20/24 16:30 IMPRESSION: NO ACUTE FINDINGS. Reading [facility] Brain MRI 09/21/24 09:00 IMPRESSION: 1. Acute nonhemorrhagic infarct right cerebellum. 2. Gkni-ly-incpubzk nonspecific chronic white matter changes, likely chronic small-vessel ischemic change. 3. Mild generalized atrophy. 4. No enhancing lesions Reading Location: [facility] Physical Exam Const alert, oriented x3, no apparent distress and average body habitus; Negative for healthy appearing or well nourished Constitutional Narrative: Thin, older, white male, sitting up in bed, appears comfortable currently, does not appear toxic but does not appear well, looks to be somewhat malnourished HEENT head/scalp atraumatic and moist oral mucous membranes HEENT Narrative: Temporal wasting bilateral Head and Scalp: normocephalic Neck supple Neck Narrative: Trachea midline Resp normal respiratory effort, no retractions, no use of accessory muscles and clearto auscultation bilaterally Auscultation: Negative for rales, rhonchi or wheezes Cardio regular rate, regular rhythm, S1 normal heart sound, S2 normal heart sound, no murmurs, no rub, no gallops and no clicks GI soft to palpation GI Narrative: Scaphoid abdomen, bowel sounds are hypoactive, no significant distention, diffuse tenderness noted with no point tenderness Extremity no clubbing, cyanosis or edema Extremity Narrative: Decreased lean muscle mass Neuro oriented x3, moves all extremities and no focal motor deficits Speech: speech normal Psych Psych Narrative: Affect is slightly flat but patient makes good eye contact and interacts appropriately Assessment & Plan Assessment/Plan (1) Dizziness: (2) Cerebellar stroke: (3) Nausea & vomiting: PLAN: Plan Dizziness secondary to right acute cerebellar ischemic stroke -MRI done today shows acute right cerebellar infarct - Continue aspirin 81 mg daily - Start Lipitor 40 mg daily - Echocardiogram done and shows an EF of 60% with stage I diastolic dysfunction no significant valvular abnormalities, mild concentric LVH -Current NIH is 0 - Continue to hold antihypertensives and restart tomorrow as long as patient remains asymptomatic and blood pressure will tolerate - Will check orthostatic vitals in a.m. - LDL in no therapy is 91 with goal less than 70 - A1c was 5.5 -Will need outpatient neurology follow-up and event monitor at discharge - Neurology was consulted and recommendations given Nausea and vomiting/constipation - CT shows some constipation - On review of the CT there does appear to be air-fluid levels in the stomach and proximal small bowel - Start scopolamine patch - Continue IV therapy - Will give Reglan 5 mg IV x 3 doses - Continue clear liquid diet but no advancement till nausea improves - May need repeat CT versus consultation with GI if does not clinically improve - Hold home antidiarrheal medication due to constipation noted on CT Elevated troponin - Initial troponin 60 with a delta of 56 - EKG shows no signs of ischemia - Echocardiogram with no wall motion abnormalities - Cardiology was curb sided and recommended observation with no intervention unless significant abnormalities noted on imaging - Suspect related to dehydration 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 Celis - Nausea vomiting does not appear to be related to his chemo as this is not new agent - Continue home regimen CKD of unknown type - Serum creatinine is down from admission from 0.64-1.49 - Has been as high as 3.17 previously in 202 - Continue to monitor - IV fluids as ordered Hypothyroidism - TSH 2.040 - cont levothyroxine Essential hypertension - Hold home antihypertensives - Consider reinitiating tomorrow Allergic rhinitis - Continue home loratadine and fluticasone Mood disorder/anxiety/depression - Continue home aripiprazole - Continue Lexapro History of tobacco abuse - Ongoing cessation DVT prophylaxis - Continue subcu Lovenox CODE STATUS - Full code per discussion at admission updated on at 7:55 PM on 09/21/2024. Charges/Coding Visit Charges Inpatient E&M: 17644 Subs Hosp L2 NIHSS NIHSS Nursing Documentation NIHSS Nursing Documentation: NIHSS: Ischemic Stroke/TIA Start: 09/20/24 18:40 Text: For PCU Patients: NIH and Neuro Check every 4 Status: Active hours, PRN and with change in RN caregiver. Freq: [id number] Protocol: Activity Type Activity Date Activity User E-sign Co-sign Detail Recorded Client Recorded Date Recorded By Document 09/21/24 11:40 pcu 09/21/24 11:49 09/21/24 11:40 NIH Stroke Scale [NIHSS] A score of 0 is normal or asymptomatic . Total possible score is 42. Inpatient: RN or Physician to activate a stroke alert for onset of new stroke symptoms or with NIHSS increase >/= 3 points. Following change in neurological status, NIHSS will be performed per physician order or more frequently PRN. -1a. Level of Consciousness 0 - Alert; keenly responsive -1b. LOC Questions 0 - Answers BOTH questions correctly -1c. LOC Commands 0 - Performs BOTH tasks correctly -2. Best Gaze 0 - Normal -3. Visual 0 - No visual loss -4. Facial Palsy 0 - Normal symmetrical movements -5a. Left Arm 0 - No drift; arm holds 90 ( or 45) degrees for full 10 seconds -5b. Right Arm 0 - No drift; arm holds 90 ( or 45) degrees for full 10 seconds -6a. Left Leg 0 - No drift; leg holds 30- degree position for full 5 seconds -6b. Right Leg 0 - No drift; leg holds 30- degree position for full 5 seconds -7. Limb Ataxia 0 - Absent -8. Sensory 0 - Normal; no sensory loss -9. Best Language 0 - No aphasia; normal -10. Dysarthria 0 - Normal -11. Extinction and Inattention 0 - No abnormality -Total 0 Query Text:A score of 0 is normal or asymptomatic. Total possible score is 42 . ED: Notify Physician for NIHSS increase by > / = 3 points. Inpatient: RN or Physician to activate a stroke alert for NIHSS increase of > / = 3 points. Coma Scale [Assess] -Eye Opening Spontaneous -Motor Obeys Commands -Verbal Oriented [Total] -Coma Scale Total 15 09/21/242005 <Electronically signed by Rebecca Lima DO> Cosigner Signature (if applicable): CC: ~ Signed [facility] Work Phone: [phone] [phone] Progress note [facility] Medical Records Department [address] [place] [address] Progress Note - Hospitalist 09/21/24 1245 MR#: [id number] Acct: [id number] Name: ITZEL GOMEZ Rep #:[id number] : 1945 79 From: Rebecca Lima DO PCP: [facility] Hospital Status:ADM IN Location: [facility] [id number]- [id number] Reason for Visit Reason for Visit: Nausea and vomiting /Dizziness Subjective Subjective Patient reports he typically does not have nausea and vomiting. This appears luis alberto new. 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 Has had resection and follows at the [facility]. Was found to havean acute stroke and treatment ongoing. Biggest problem has been ongoing nausea and vomiting. Not able to eat much right now. Still some lightheadedness with positionchanges. NIH has been 0. Objective Data Objective Data Vital Signs: Vital Signs Temp Pulse Resp BP Pulse Ox O2 Del Method 97.7 F L 48 L 18 156/77 H 96 Room Air 09/21/24 11:40 09/21/24 11:40 09/21/24 11:40 09/21/24 11:40 09/21/24 11:40 09/21/24 11:40 Oxygen Delivery Method Room Air Weight: 76.1 kg Body Mass Index (BMI) 22.7 Intake & Output: Intake and Output for Last 24 Hours 09/19/24 09/20/24 09/21/24 23:59 23:59 23:59 Intake Total 2110 / 2110 1110 / 1110 Output Total 350 / 350 750 / 750 Balance 1760 / 1760 360 / 360 Lab / Micro Data 09/21/24 05:36 09/21/24 05:36 Labs: Laboratory Results - last 24 hr 09/20/24 14:10: WBC 15.2 H, RBC 4.99, Hgb 15.8, Hct 47.0, MCV 94.2 H, MCH 31.7, MCHC 33.6, RDW Std Deviation 46.4 H, RDW Coeff of Gretel 13.3, Plt Count 213, MPV 8.9, Immature Gran % (Auto) 0.500, Neut % (Auto) 92.9 H, Lymph % (Auto) 3.0 L, [place] % (Auto) 3.2, Eos % (Auto) 0.1, Baso % (Auto) 0.3, Absolute Neuts (auto) 14.1 H, Absolute Lymphs (auto) 0.45 L, Nucleated RBC % 0, PT 13.2, INR 1.0, APTT27.0, Sodium 142, Potassium 4.6, Chloride 106, Carbon Dioxide 23.3, Anion Gap 12, BUN 22 H, Creatinine 1.64 H, Estim Creat Clear Calc 44.22 L, Est GFR (MDRD) Non-Af 42 L, BUN/Creatinine Ratio 13.6, Glucose 112 H, Calcium 8.9, Total Bilirubin 0.47, AST 28, ALT 19, Alkaline Phosphatase 103, Troponin T High Sens 60 H*, Total Protein 7.4, Albumin 4.5, Globulin 2.9, Albumin/Globulin Ratio 1.6,Lipase 23 09/20/24 14:54: POC Glucose 96 09/20/24 16:00: Urine Color Straw, Urine Clarity Clear, Urine pH 6.0, Ur Specific [place] 1.015, Urine Protein 30 H, Urine Glucose (UA) Normal, Urine Ketones Negative, Urine Occult Blood 25 H, Urine Nitrite Negative, Urine Bilirubin Negative, Urine Urobilinogen Normal, Ur Leukocyte Esterase Negative, Urine RBC 0 SEEN, Urine WBC 0 SEEN, Ur Squamous Epith Cells 0 SEEN, Calcium Oxalate Crystal RARE,Urine Bacteria 0 SEEN, Fine Granular Casts 0-5 SEEN, UrineMucus 0 SEEN 09/20/24 16:10: Phosphorus 2.7, Magnesium 1.6, Troponin T Hi Sens 2 Hr 56 H* 09/20/24 20:15: Troponin T Hi Sens 4Hr 58 H* 09/21/24 05:36: WBC 11.3 H, RBC 4.27 L, Hgb 13.6, Hct 40.1, MCV 93.9, MCH 31.9, MCHC 33.9, RDW Std Deviation 45.6 H, RDW Coeff of Gretel 13.3, Plt Count 188, MPV 8.9, Immature Gran % (Auto) 0.400, Neut % (Auto) 88.5 H, Lymph % (Auto) 6.3 L, [place] % (Auto) 3.9, Eos % (Auto) 0.5, Baso % (Auto) 0.4, Absolute Neuts (auto) 10.0 H, Absolute Lymphs (auto) 0.71 L, Nucleated RBC % 0, Sodium 140, Potassium 4.6, Chloride 109 H, Carbon Dioxide 20.5 L, Anion Gap 10, BUN 17, Creatinine 1.49 H, Estim Creat Clear Calc 43.27 L, Est GFR (MDRD) Non-Af 47 L, BUN/Creatinine Ratio 11.1, Glucose 116 H, Hemoglobin A1c 5.5, Calcium 8.2, TotalBilirubin 0.53, AST 21, ALT 13, Alkaline Phosphatase 85, Total Protein 5.9, Albumin 3.7, Globulin 2.1 L, Albumin/Globulin Ratio 1.8, Triglycerides 117, Cholesterol 175, LDL Cholesterol, Calc 91, VLDL Cholesterol 23, HDL Cholesterol 61, Cholesterol/HDL Ratio 2.89, TSH 2.040 Radiography Diagnostic Testing: Radiology Impression Abdomen/Pelvis CT 09/20/24 14:15 IMPRESSION: 1. Nonspecific lobulated isodense lesion in the pelvis measuring up to 3.4 cm. This could be enlarged lymph node. Neoplastic can not be excluded. Clinical correlation is recommended. 2. Mild esophageal hiatal hernia. 3. Fecal retention in the colon consistent with constipation. 4. Colonic diverticulosis without acute diverticulitis. Reading Location: [facility] Brain CT 09/20/24 14:15 IMPRESSION: 1. Small vessel ischemic/degenerative changes. 2. No acute intracranial hemorrhage, midline shift or mass effect. If symptoms persist, further evaluation with MRI is recommended. 3. Generalized brain atrophy. Reading Location: [facility] Head/Neck CTA 09/20/24 14:16 IMPRESSION: Mild scattered atherosclerotic calcification of the anterior and posterior intracranial and extracranial circulation without hemodynamically significant stenosis. Reading Location[facility] Chest X-Ray 09/20/24 16:30 IMPRESSION: NO ACUTE FINDINGS. Reading Location: [facility] Brain MRI 09/21/24 09:00 IMPRESSION: 1. Acute nonhemorrhagic infarct right cerebellum. 2. [id number] nonspecific chronic white matter changes, likely chronic small-vessel ischemic change. 3. Mild generalized atrophy. 4. No enhancing lesions Reading Location[facility] Physical Exam Const alert, oriented x3, no apparent distress and average body habitus; Negative for healthy appearing or well nourished Constitutional Narrative: Thin, older, white male, sitting up in bed, appears comfortable currently, does not appear toxic but does not appear well, looks to be somewhat malnourished HEENT head/scalp atraumatic and moist oral mucous membranes HEENT Narrative: Temporal wasting bilateral Head and Scalp: normocephalic Neck supple Neck Narrative: Trachea midline Resp normal respiratory effort, no retractions, no use of accessory muscles and clearto auscultation bilaterally Auscultation: Negative for rales, rhonchi or wheezes Cardio regular rate, regular rhythm, S1 normal heart sound, S2 normal heart sound, no murmurs, no rub, no gallops and no clicks GI soft to palpation GI Narrative: Scaphoid abdomen, bowel sounds are hypoactive, no significant distention, diffuse tenderness noted with no point tenderness Extremity no clubbing, cyanosis or edema Extremity Narrative: Decreased lean muscle mass Neuro oriented x3, moves all extremities and no focal motor deficits Speech: speech normal Psych Psych Narrative: Affect is slightly flat but patient makes good eye contact and interacts appropriately Assessment & Plan Assessment/Plan (1) Dizziness: (2) Cerebellar stroke: (3) Nausea & vomiting: PLAN: Plan Dizziness secondary to right acute cerebellar ischemic stroke -MRI done today shows acute right cerebellar infarct - Continue aspirin 81 mg daily - Start Lipitor 40 mg daily - Echocardiogram done and shows an EF of 60% with stage I diastolic dysfunction no significant valvular abnormalities, mild concentric LVH -Current NIH is 0 - Continue to hold antihypertensives and restart tomorrow as long as patient remains asymptomatic and blood pressure will tolerate - Will check orthostatic vitals in a.m. - LDL in no therapy is 91 with goal less than 70 - A1c was 5.5 -Will need outpatient neurology follow-up and event monitor at discharge - Neurology was consulted and recommendations given Nausea and vomiting/constipation - CT shows some constipation - On review of the CT there does appear to be air-fluid levels in the stomach and proximal small bowel - Start scopolamine patch - Continue IV therapy - Will give Reglan 5 mg IV x 3 doses - Continue clear liquid diet but no advancement till nausea improves - May need repeat CT versus consultation with GI if does not clinically improve - Hold home antidiarrheal medication due to constipation noted on CT Elevated troponin - Initial troponin 60 with a delta of 56 - EKG shows no signs of ischemia - Echocardiogram with no wall motion abnormalities - Cardiology was curb sided and recommended observation with no intervention unless significant abnormalities noted on imaging - Suspect related to dehydration 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 Celis - Nausea vomiting does not appear to be related to his chemo as this is not new agent - Continue home regimen CKD of unknown type - Serum creatinine is down from admission from 0.64-1.49 - Has been as high as 3.17 previously in 2021 - Continue to monitor - IV fluids as ordered Hypothyroidism - TSH 2.040 - cont levothyroxine Essential hypertension - Hold home antihypertensives - Consider reinitiating tomorrow Allergic rhinitis - Continue home loratadine and fluticasone Mood disorder/anxiety/depression - Continue home aripiprazole - Continue Lexapro History of tobacco abuse - Ongoing cessation DVT prophylaxis - Continue subcu Lovenox CODE STATUS - Full code per discussion at admission updated on at 7:55 PM on 09/21/2024. Charges/Coding Visit Charges Inpatient E&M: 26744 Subs Hosp L2 NIHSS NIHSS Nursing Documentation NIHSS Nursing Documentation: NIHSS: Ischemic Stroke/TIA Start: 09/20/24 18:40 Text: For PCU Patients: NIH and Neuro Check every 4 Status: Active hours, PRN and with change in RN caregiver. Freq: [id number] Protocol: Activity Type Activity Date Activity User E-sign Co-sign Detail Recorded Client Recorded Date Recorded By Document 09/21/24 11:40 pcu 09/21/24 11:49 09/21/24 11:40 NIH Stroke Scale [NIHSS] A score of 0 is normal or asymptomatic . Total possible score is 42. Inpatient: RN or Physician to activate a stroke alert for onset of new stroke symptoms or with NIHSS increase >/= 3 points. Following change in neurological status, NIHSS will be performed per physician order or more frequently PRN. -1a. Level of Consciousness 0 - Alert; keenly responsive -1b. LOC Questions 0 - Answers BOTH questions correctly -1c. LOC Commands 0 - Performs BOTH tasks correctly -2. Best Gaze 0 - Normal -3. Visual 0 - No visual loss -4. Facial Palsy 0 - Normal symmetrical movements -5a. Left Arm 0 - No drift; arm holds 90 ( or 45) degrees for full 10 seconds -5b. Right Arm 0 - No drift; arm holds 90 ( or 45) degrees for full 10 seconds -6a. Left Leg 0 - No drift; leg holds 30- degree position for full 5 seconds -6b. Right Leg 0 - No drift; leg holds 30- degree position for full 5 seconds -7. Limb Ataxia 0 - Absent -8. Sensory 0 - Normal; no sensory loss -9. Best Language 0 - No aphasia; normal -10. Dysarthria 0 - Normal -11. Extinction and Inattention 0 - No abnormality -Total 0 Query Text:A score of 0 is normal or asymptomatic. Total possible score is 42 . ED: Notify Physician for NIHSS increase by > / = 3 points. Inpatient: RN or Physician to activate a stroke alert for NIHSS increase of > / = 3 points. Coma Scale [Assess] -Eye Opening Spontaneous -Motor Obeys Commands -Verbal Oriented [Total] -Coma Scale Total 15 09/21/242005 Cosigner Signature (if applicable): CC: ~ Signed [facility]05-19-2025 Evaluation note* Diagnosis Onset Date Resolution Status Admit Date Cerebellar stroke acute September 2:45pm Dizziness acute September 21, 2024 2:45pm Intractable nausea and vomiting acut e September 21, 2024 2:45pm Nausea & vomiting acute September 2:45pm [facility] Work Phone: 1(148) 546-395705-19-2025 Evaluation note* Diagnosis Onset Date Resolution Status Admit Date Cerebellar stroke acute September 2:45pm Dizziness deleted September 21, 2024 2:45pm Intractable nausea and vomiting amy juan September 21, 2024 2:45pm Nausea & vomiting deleted September 2:45pm Allergic rhinitis acute September 6:05pm Cerebellar stroke acute September 6:05pm Cognitive dysfunction acute September 23, 2024 6:05pm Debility acute September 23, 2024 6:05pm Gait instability acute September 6:05pm Grade I diastolic dysfunction acute September 23, 2024 6:05pm History of depression acute September 23, 2024 6:05pm Hypothyroidism acute September 23, 2024 6:05pm Mild concentric left ventric ular hypertrophy acute September 23, 2024 6 :05pm Sundowning acute September 23, 2024 6:05pm Benign essential HTN chronic September 23, 2024 6:05pm Chronic abdominal pain chronic Ma y 2024 6:05pm Chronic narcotic use chronic September 23, 2024 6:05pm Chronic renal failure, stage 3 (moderate) chronic September 23, 2024 6 :05pm Dyslipidemia chronic September 23 6:05pm History of malignant carcino id tumor chronic September 23, 2024 6 :05pm Obesity (BMI 30.0-34.9) chronic M ay 2024 6:05pm Short bowel syndrome chronic September 23, 2024 6:05pm [facility] Work Phone: 1(929) 976-172605-19-2025 Evaluation note* Diagnosis Onset Date Resolution Status Admit Date Cerebellar stroke acute September 2:45pm Dizziness deleted September 21, 2024 2:45pm Intractable nausea and vomiting amy juan September 21, 2024 2:45pm Nausea & vomiting deleted September 2:45pm Cerebellar stroke acute September 6:05pm Cognitive dysfunction acute September 23, 2024 6:05pm Debility acute September 23, 2024 6:05pm Gait instability acute September 6:05pm Sundowning resolved September 23, 2024 6:05pm Allergic rhinitis inactive September 6:05pm Benign essential HTN inactive September 23, 2024 6:05pm Chronic abdominal pain inactive Ma y 2024 6:05pm Chronic narcotic use inactive September 23, 2024 6:05pm Chronic renal failure, stage 3 (moderate) inactive September 23, 2024 6 :05pm Dyslipidemia inactive September 23 6:05pm Grade I diastolic dysfunction inacti ve September 23, 2024 6:05pm History of depression inactive September 23, 2024 6:05pm History of malignant carcino id tumor inactive September 23, 2024 6 :05pm Hypothyroidism inactive September 23, 2024 6:05pm Mild concentric left ventric ular hypertrophy inactive September 23, 2024 6 :05pm Obesity (BMI 30.0-34.9) inactive M ay 2024 6:05pm Short bowel syndrome inactive September 23, 2024 6:05pm [facility] Work Phone: 1([phone]) 522-836405-19-2025 Consult note Author Carol Lima [facility] Note Date/Time September 21, 2024 12:45 pm [facility] Medical Records Department [address] [place] [address] Consultation - Neurology 09/21/24 1133 MR#: [id number] Acct: [id number] Name: ITZEL GOMEZ Rep #:[id number] : 1945 79 From: Carol Lima MD PCP: [facility] Status:ADM KESHAV Location: [place] [address] Assessment and Plan: Stroke Assessment/Plan ITZEL GOMEZ, is a 79 year old right handed male ex-smoker with history of HTN and multiple metastatic carcinoid tumors, on Asa 81mg who presents with dizziness (vertigo) and nausea on 09/20/24. He reports he went to bed normal midnight 09/19/24 evening and awoke 09/20/24 with vertigo. He also noted unsteadygait and had to hold onto the harrison. He presented [facility] CT brain negativefor acute changes. CTA head/neck negative. He was admitted. MRI brain DWI shows acute right cerebellar infarct. LDL 91. HgbA1c 5.5. Neurological examination shows nonfocal exam. 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 2) Continue vascular risk factor modification. Recommend starting lipitor 40. 3) Complete stroke work-up with TTE and PT/OT consults. 4) If TTE negative, then inpatient stroke work-up completed and final recommendation is for medical management. Recommend outpatient Event monitor andfollow-up in neurology clinic. Primary team messaged recs on backline. HPI Consult Data Date of Consult: 09/21/24 HPI Narrative HPI Narrative: ITZEL GOMEZ, is a 79 year old right handed male ex-smoker with history of HTN and multiple metastatic carcinoid tumors, on Asa 81mg who presents with dizziness (vertigo) and nausea on 09/20/24. He reports he went to bed normal midnight 09/19/24 evening and awoke 09/20/24 with vertigo. He also noted unsteadygait and had to hold onto the harrison. He presented [facility] CT brain negativefor acute changes. CTA head/neck negative. He was admitted. MRI brain DWI shows acute right cerebellar infarct. LDL 91. HgbA1c 5.5. Patient denies history of prior stroke. He has persistent symptoms. +N/V today. [facility] Medical History Bilateral pneumonia History of COVID-19 Anxiety and depression Cancer Former smoker Hypertension Stroke/cerebrovascular accident Multiple metastatic carcinoid tumors Home Medications ?Medication ?Instructions ?Recorded ?Last Taken ?Type amlodipine 10 mg tablet 10 mg PO DAILY Blood pressur e 90 09/20/20 09/20/24 Rx days #90 tabs loratadine 10 mg tablet 10 mg PO DAILY ALLERGIES 09/20/21 History aspirin 81 mg tablet 81 mg PO DAILY heart health 09/20/24 09/20/24 History colestipol 1 gram tablet 1 g PO BID 09/20/24 09/20/24 History escitalopram oxalate 10 mg tablet 10 mg PO DAILY depre ssion 09/20/24 09/20/24 History levothyroxine 25 mcg tablet 25 mcg PO DAILY thyroid 09/19/24 History (Levo-T) loperamide 2 mg tablet (Diamode) 4 mg PO BID 09/20/24 09/20/24 History octreotide acetate 30 mg IM Q28D 09/20/24 Unkno wn History oxycodone-acetaminophen 5 mg-325 1 tab PO Q6H PRN pain 09/20/24 09/20/24 History mg tablet potassium chloride 20 mEq 20 meq PO DAILY 09/20/24 History tablet,extended release telotristat ethyl 250 mg tablet 250 mg PO TID 09/20/24 09/20/24 History (Xermelo) Allergy/AdvReac Type Severity Reaction Status Date / Time amoxicillin Allergy Rash Verified 09/20/24 13:53 codeine AdvReac Nausea Verified 09/20/24 13:53 Family History Mother Heart disease Myocardial infarction CAD (coronary artery disease) Father COPD (chronic obstructive pulmonary disease) Surgical History H/O resection of small bowel S/P colectomy History of appendectomy History of cholecystectomy Social History household members: spouse Smoking Status: Never smoker how long ago did patient quit smoking: Patient smoked in the only and quit remotely. alcohol intake: never substance use type: does not use Vital Signs Vital Signs Vital Signs: 09/20/24 13:54 09/20/24 14:15 09/20/24 14:39 Temperature 97.6 F L Temperature Source Oral Pulse Rate 57 L 61 Pulse Strength Respiratory Rate 14 16 Respiratory Effort Respiratory Depth Respiratory Pattern Blood Pressure 191/93 H 174/77 H Blood Pressure Mean 125 109 Blood Pressure Source Blood Pressure Position Blood Pressure Location Pulse Ox 96 96 96 Oxygen Delivery Method Room Air Room Air Room Air 09/20/24 14:45 09/20/24 15:15 09/20/24 15:58 Temperature Temperature Source Pulse Rate 58 L 58 L 54 L Pulse Strength Respiratory Rate 16 16 16 Respiratory Effort Respiratory Depth Respiratory Pattern Blood Pressure 178/80 H 162/84 H 162/86 H Blood Pressure Mean 112 110 111 Blood Pressure Source Blood Pressure Position Blood Pressure Location Pulse Ox 96 96 95 Oxygen Delivery Method Room Air Room Air Room Air 09/20/24 17:12 09/20/24 18:37 09/20/24 18:49 Temperature 97.6 F L 97.8 F Temperature Source Oral Pulse Rate 56 L 56 L 54 L Pulse Strength Respiratory Rate 16 16 18 Respiratory Effort Respiratory Depth Respiratory Pattern Blood Pressure 164/78 H 176/84 H 164/74 H Blood Pressure Mean 106 114 104 Blood Pressure Source Monitor Blood Pressure Position Semi-Fowlers Blood Pressure Location Right Arm Pulse Ox 95 97 99 Oxygen Delivery Method Room Air Room Air 09/20/24 20:10 09/20/24 20:45 09/20/24 22:20 Temperature 97.7 F L Temperature Source Temporal Pulse Rate 55 L Pulse Strength Respiratory Rate 18 Respiratory Effort Normal Non-Labored Respiratory Depth Normal Respiratory Pattern Normal Blood Pressure 162/80 H Blood Pressure Mean 107 Blood Pressure Source Monitor Blood Pressure Position Semi-Fowlers Blood Pressure Location Right Arm Pulse Ox 96 98 Oxygen Delivery Method Room Air Room Air Room Air 09/20/24 22:20 09/21/24 02:20 09/21/24 02:25 Temperature 97.5 F L Temperature Source Temporal Pulse Rate 53 L Pulse Strength Normal (2+) Respiratory Rate 18 Respiratory Effort Normal Non-Labored Respiratory Depth Normal Respiratory Pattern Normal Blood Pressure 182/78 H Blood Pressure Mean 112 Blood Pressure Source Monitor Blood Pressure Position Semi-Fowlers Blood Pressure Location Right Arm Pulse Ox 98 Oxygen Delivery Method Room Air Room Air 09/21/24 06:18 09/21/24 07:55 09/21/24 08:00 Temperature 97.5 F L 97.7 F L Temperature Source Temporal Oral Pulse Rate 53 L 56 L Pulse Strength Normal (2+) Respiratory Rate 18 18 Respiratory Effort Respiratory Depth Respiratory Pattern Blood Pressure 173/82 H 171/78 H Blood Pressure Mean 112 109 Blood Pressure Source Monitor Blood Pressure Position Semi-Fowlers Blood Pressure Location Right Arm Pulse Ox 97 96 Oxygen Delivery Method Room Air Room Air 09/21/24 08:03 Temperature Temperature Source Pulse Rate Pulse Strength Respiratory Rate Respiratory Effort Normal Non-Labored Respiratory Depth Normal Respiratory Pattern Normal Blood Pressure Blood Pressure Mean Blood Pressure Source Blood Pressure Position Blood Pressure Location Pulse Ox Oxygen Delivery Method Room Air Weight Weight: 76.1 kg Body Mass Index (BMI) 22.7 Physical Exam Neuro Neuro Narrative: Neurological examination: General: The patient appears nutritionally appropriate, well-groomed, and appears comfortable in no acute distress. Mental Status: The patient?s mental status was normal including orientation. Language was intact. Cranial nerves: No visual complaints, and extra-ocular motion was intact. Face motion symmetric.Tongue was midline with normal movement. There was no dysarthria. Motor: Anti-gravity in all four extremities. No pronator drift. Sensation: Intact light touch bilaterally. Coordination: Bilateral finger to nose was normal. There was no dysmetria. Gait: deferred Lab / Micro Data 09/21/24 05:36 09/21/24 05:36 Labs: Laboratory Results - last 24 hr 09/20/24 14:10: WBC 15.2 H, RBC 4.99, Hgb 15.8, Hct 47.0, MCV 94.2 H, MCH 31.7, MCHC 33.6, RDW Std Deviation 46.4 H, RDW Coeff of Gretel 13.3, Plt Count 213, MPV 8.9, Immature Gran % (Auto) 0.500, Neut % (Auto) 92.9 H, Lymph % (Auto) 3.0 L, [place] % (Auto) 3.2, Eos % (Auto) 0.1, Baso % (Auto) 0.3, Absolute Neuts (auto) 14.1 H, Absolute Lymphs (auto) 0.45 L, Nucleated RBC % 0, PT 13.2, INR 1.0, APTT27.0, Sodium 142, Potassium 4.6, Chloride 106, Carbon Dioxide 23.3, Anion Gap 12, BUN 22 H, Creatinine 1.64 H, Estim Creat Clear Calc 44.22 L, Est GFR (MDRD) Non-Af 42 L, BUN/Creatinine Ratio 13.6, Glucose 112 H, Calcium 8.9, Total Bilirubin 0.47, AST 28, ALT 19, Alkaline Phosphatase 103, Troponin T High Sens 60 H*, Total Protein 7.4, Albumin 4.5, Globulin 2.9, Albumin/Globulin Ratio 1.6,Lipase 23 09/20/24 14:54: POC Glucose 96 09/20/24 16:00: Urine Color Straw, Urine Clarity Clear, Urine pH 6.0, Ur Specific [place] 1.015, Urine Protein 30 H, Urine Glucose (UA) Normal, Urine Ketones Negative, Urine Occult Blood 25 H, Urine Nitrite Negative, Urine Bilirubin Negative, Urine Urobilinogen Normal, Ur Leukocyte Esterase Negative, Urine RBC 0 SEEN, Urine WBC 0 SEEN, Ur Squamous Epith Cells 0 SEEN, Calcium Oxalate Crystal RARE, Urine Bacteria 0 SEEN, Fine Granular Casts 0-5 SEEN, UrineMucus 0 SEEN 09/20/24 16:10: Phosphorus 2.7, Magnesium 1.6, Troponin T Hi Sens 2 Hr 56 H* 09/20/24 20:15: Troponin T Hi Sens 4Hr 58 H* 09/21/24 05:36: WBC 11.3 H, RBC 4.27 L, Hgb 13.6, Hct 40.1, MCV 93.9, MCH 31.9, MCHC 33.9, RDW Std Deviation 45.6 H, RDW Coeff of Gretel 13.3, Plt Count 188, MPV 8.9, Immature Gran % (Auto) 0.400, Neut % (Auto) 88.5 H, Lymph % (Auto) 6.3 L, [place] % (Auto) 3.9, Eos % (Auto) 0.5, Baso % (Auto) 0.4, Absolute Neuts (auto) 10.0 H, Absolute Lymphs (auto) 0.71 L, Nucleated RBC % 0, Sodium 140, Potassium 4.6, Chloride 109 H, Carbon Dioxide 20.5 L, Anion Gap 10, BUN 17, Creatinine 1.49 H, Estim Creat Clear Calc 43.27 L, Est GFR (MDRD) Non-Af 47 L, BUN/Creatinine Ratio 11.1, Glucose 116 H, Hemoglobin A1c 5.5, Calcium 8.2, TotalBilirubin 0.53, AST 21, ALT 13, Alkaline Phosphatase 85, Total Protein 5.9, Albumin 3.7, Globulin 2.1 L, Albumin/Globulin Ratio 1.8, Triglycerides 117, Cholesterol 175, LDL Cholesterol, Calc 91, VLDL Cholesterol 23, HDL Cholesterol 61, Cholesterol/HDL Ratio 2.89, TSH 2.040 Imaging Radiology Impression Abdomen/Pelvis CT 09/20/24 14:15 IMPRESSION: 1. Nonspecific lobulated isodense lesion in the pelvis measuring up to 3.4 cm. This could be enlarged lymph node. Neoplastic can not be excluded. Clinical correlation is recommended. 2. Mild esophageal hiatal hernia. 3. Fecal retention in the colon consistent with constipation. 4. Colonic diverticulosis without acute diverticulitis. Reading Location: [facility] Brain CT 09/20/24 14:15 IMPRESSION: 1. Small vessel ischemic/degenerative changes. 2. No acute intracranial hemorrhage, midline shift or mass effect. If symptoms persist, further evaluation with MRI is recommended. 3. Generalized brain atrophy. Reading Location: [facility] Head/Neck CTA 09/20/24 14:16 IMPRESSION: Mild scattered atherosclerotic calcification of the anterior and posterior intracranial and extracranial circulation without hemodynamically significant stenosis. Reading Location[facility] Chest X-Ray 09/20/24 16:30 IMPRESSION: NO ACUTE FINDINGS. Reading Location: [facility] Brain MRI 09/21/24 09:00 IMPRESSION: 1. Acute nonhemorrhagic infarct right cerebellum. 2. Ypvm-[id number] nonspecific chronic white matter changes, likely chronic small-vessel ischemic change. 3. Mild generalized atrophy. 4. No enhancing lesions Reading Location: [facility] Active Medications Active Medications Active Medications: Current Medications Generic Name Dose Route Start Last Admin Trade Name Freq PRN Reason Stop Dose Admin Acetaminophen 650 mg 09/20/24 18:40 Acetaminophen 325 Mg Tablet PO Q4H PRN PRN Fever, pain 1-02/12 Al Hydroxide/Mg Hydroxide 30 ml 09/20/24 18:40 Mag Hydrox/Al Hydrox/Simeth 30 Ml Udc PO Q6H PRN PRN Gastric Burning Albuterol Sulfate 2.5 mg 09/20/24 18:40 Albuterol 2.5 Mg/3 Ml Vial.Neb. INHALATION Q2H PRN PRN Dyspnea, wheezing Amlodipine Besylate 10 mg 09/21/24 10:00 09/21/24 11:11 Amlodipine 10 Mg Tablet PO Not Given DAILY [facility] Protocol Aspirin 81 mg 09/21/24 08:00 09/21/24 08:21 Aspirin 81 Mg Tab.Chew PO 81 mg BREAKFAST MAYELA Administration Clarify Med Order 1 each 09/20/24 19:15 09/20/24 20:29 Clarify Order NOTE Not Given CLARIFY MAYELA Colestipol HCl 1 gm 09/20/24 22:00 09/21/24 08:20 Colestipol 1 Gm Tablet PO 1 gm BID MAYELA Administration Enoxaparin Sodium 40 mg 09/21/24 10:00 09/21/24 08:21 Enoxaparin 40 Mg/0.4 Ml Syringe SC 40 mg DAILY MAYELA Administration Escitalopram Oxalate 10 mg 09/21/24 10:00 09/21/24 08:21 Escitalopram Oxalate 10 Mg Tablet PO 10 mg DAILY MAYELA Administration Guaifenesin 20 ml 09/20/24 18:40 Guaifenesin 10 Ml Udc (200mg/10ml) PO Q4H PRN PRN COUGH Hydralazine HCl 5 mg 09/20/24 18:40 Hydralazine 20 Mg/Ml Vial IV 09/21/24 18:40 Q30M PRN maintain BP parameters with HR <60 Pantoprazole Sodium 40 mg/ 110 mls @ 330 mls/hr 09/20/24 18:40 09/21/24 09:28 Sodium Chloride IV Infused Q12 MAYELA Infusion Sodium Chloride 250 mls @ 15 mls/hr 09/20/24 18:41 IV .[id number] PRN Saline Flush Sodium Chloride 250 mls @ 15 mls/hr 09/20/24 18:41 IV .[id number] PRN Additional IVPB Infusion Labetalol HCl 10 - 20 mg 09/20/24 18:40 Labetalol 20 Mg/4 Ml Vial IV 09/21/24 18:40 Q10M PRN PRN maintain BP parameters with HR >/=60 Levothyroxine Sodium 25 mcg 09/21/24 06:00 09/21/24 06:23 Levothyroxine 25 Mcg Tablet PO 25 mcg DAILY@0600 MAYELA Administration Loperamide HCl 4 mg 09/21/24 10:00 Loperamide 2 Mg Capsule PO BID MAYELA Loratadine 10 mg 09/21/24 10:00 09/21/24 08:21 Loratadine 10 Mg Tablet PO 10 mg DAILY MAYELA Administration Lorazepam 0.5 mg 09/20/24 18:40 Lorazepam 0.5 Mg Tablet PO X1 PRN Anxiety with MRI Melatonin 3 mg 09/20/24 18:40 Melatonin 3 Mg Tablet PO QHS PRN PRN INSOMNIA Non-Formulary Medication 30 mg 09/20/24 18:40 Octreotide Acetate IM Q28D MAYELA Ondansetron HCl 4 mg 09/20/24 18:40 09/21/24 02:25 Ondansetron 4 Mg/2 Ml Vial IV 4 mg Q8H PRN PRN Administration NAUSEA/VOMITING Oxycodone HCl 5 mg 09/20/24 18:49 Oxycodone 5 Mg Tablet PO Q6H PRN pain 1-10 Prochlorperazine Edisylate 5 mg 09/20/24 18:40 Prochlorperazine 10 Mg/2 Ml Vial IV Q4H PRN PRN Breakthrough Nausea/Vomiting Sodium Chloride 10 - 40 ml 09/20/24 18:41 0.9% Saline Lock 10 Ml Syringe IV UD PRN SALINE FLUSH NIHSS NIHSS Nursing Documentation NIHSS Nursing Documentation: NIHSS: Ischemic Stroke/TIA Start: 09/20/24 18:40 Text: For PCU Patients: NIH and Neuro Check every 4 Status: Active hours, PRN and with change in RN caregiver. Freq: [id number] Protocol: Activity Type Activity Date Activity User E-sign Co-sign Detail Recorded Client Recorded Date Recorded By Document 09/21/24 08:00 shanna 09/21/24 08:02 09/21/24 08:00 NIH Stroke Scale [NIHSS] A score of 0 is normal or asymptomatic . Total possible score is 42. Inpatient: RN or Physician to activate a stroke alert for onset of new stroke symptoms or with NIHSS increase >/= 3 points. Following change in neurological status, NIHSS will be performed per physician order or more frequently PRN. -1a. Level of Consciousness 0 - Alert; keenly responsive -1b. LOC Questions 0 - Answers BOTH questions correctly -1c. LOC Commands 0 - Performs BOTH tasks correctly -2. Best Gaze 0 - Normal -3. Visual 0 - No visual loss -4. Facial Palsy 0 - Normal symmetrical movements -5a. Left Arm 0 - No drift; arm holds 90 ( or 45) degrees for full 10 seconds -5b. Right Arm 0 - No drift; arm holds 90 ( or 45) degrees for full 10 seconds -6a. Left Leg 0 - No drift; leg holds 30- degree position for full 5 seconds -6b. Right Leg 0 - No drift; leg holds 30- degree position for full 5 seconds -7. Limb Ataxia 0 - Absent -8. Sensory 0 - Normal; no sensory loss -9. Best Language 0 - No aphasia; normal -10. Dysarthria 0 - Normal -11. Extinction and Inattention 0 - No abnormality -Total 0 Query Text:A score of 0 is normal or asymptomatic. Total possible score is 42 . ED: Notify Physician for NIHSS increase by > / = 3 points. Inpatient: RN or Physician to activate a stroke alert for NIHSS increase of > / = 3 points. Coma Scale [Assess] -Eye Opening Spontaneous -Motor Obeys Commands -Verbal Oriented [Total] -Coma Scale Total 15 NIHSS 1a. Level of Consciousness: 0 - Alert; keenly responsive 1b. LOC Questions: 0 - Answers BOTH questions correctly 1c. LOC Commands: 0 - Performs BOTH tasks correctly 2. Best Gaze: 0 - Normal 3. Visual: 0 - No visual loss 4. Facial Palsy: 0 - Normal symmetrical movements 5a. Left Arm: 0 - No drift; arm holds 90 (or 45) degrees for full 10 seconds 5b. Right Arm: 0 - No drift; arm holds 90 (or 45) degrees for full 10 seconds 6a. Left Le - No drift; leg holds 30-degree position for full 5 seconds 6b. Right Le - No drift; leg holds 30-degree position for full 5 seconds 7. Limb Ataxia: 0 - Absent 8. Sensory: 0 - Normal; no sensory loss 9. Best Language: 0 - No aphasia; normal 10. Dysarthria: 0 - Normal 11. Extinction and Inattention: 0 - No abnormality Total: 0 09/21/24 1245 <Electronically signed by Carol Lima MD> Cosigner Signature (if applicable): CC: [facility]~ Signed [facility] Work Phone: [phone] Consult note [facility] Medical Records Department [address] [place] [address] Consultation - Neurology 09/21/24 1133 MR#: [id number] Acct: [id number] Name: ITZEL GOMEZ Rep #:[id number] : 1945 79 From: Carol Lima MD PCP: [facility] Status:ADM KESHAV Location: [place] [address] Assessment and Plan: Stroke Assessment/Plan ITZEL GOMEZ, is a 79 year old right handed male ex-smoker with history of HTN and multiple metastatic carcinoid tumors, on Asa 81mg who presents with dizziness (vertigo) and nausea on 09/20/24. He reports he went to bed normal midnight 09/19/24 evening and awoke 09/20/24 with vertigo. He also noted uns teadygait and had to hold onto the harrison. He presented [place] ER. CT brain negativefor acute changes. CTA head/neck negative. He was admitted. MRI brain DWI shows acute right cerebellar infarct. LDL91. HgbA1c 5.5. Neurological examination shows nonfocal exam. 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 2) Continue vascular risk factor modification. Recommend starting lipitor 40. 3) Complete stroke work-up with TTE and PT/OT consults. 4) If TTE negative, then inpatient stroke work-up completed and final recommendation is for medicalmanagement. Recommend outpatient Event monitor andfollow-up in neurology clinic. Primary team messaged recs on backline. HPI Consult Data Date of Consult: 09/21/24 HPI Narrative HPI Narrative: ITZEL GOMEZ, is a 79 year old right handed male ex-smoker with history of HTN and multiple metastatic carcinoid tumors, on Asa 81mg who presents with dizziness (vertigo) and nausea on 09/20/24. He reports he went to bed normal midnight 09/19/24 evening and awoke 09/20/24 with vertigo. He also noted uns teadygait and had to hold onto the harrison. He presented [place] ER. CT brain negativefor acute changes. CTA head/neck negative. He was admitted. MRI brain DWI shows acute right cerebellar infarct. LDL91. HgbA1c 5.5. Patient denies history of prior stroke. He has persistent symptoms. +N/V today. [facility] Medical History Bilateral pneumonia History of COVID-19 Anxiety and depression Cancer Former smoker Hypertension Stroke/cerebrovascular accident Multiple metastatic carcinoid tumors Home Medications ?Medication ?Instructions ?Recorded ?Last Taken ?Type amlodipine 10 mg tablet 10 mg PO DAILY Blood pressur e 90 09/20/20 09/20/24 Rx days #90 tabs loratadine 10 mg tablet 10 mg PO DAILY ALLERGIES 09/20/21 History aspirin 81 mg tablet 81 mg PO DAILY heart health 09/20/24 09/20/24 History colestipol 1 gram tablet 1 g PO BID 09/20/24 09/20/24 History escitalopram oxalate 10 mg tablet 10 mg PO DAILY depre ssion 09/20/24 09/20/24 History levothyroxine 25 mcg tablet 25 mcg PO DAILY thyroid 09/19/24 History (Levo-T) loperamide 2 mg tablet (Diamode) 4 mg PO BID 09/20/24 09/20/24 History octreotide acetate 30 mg IM Q28D 09/20/24 Unkno wn History oxycodone-acetaminophen 5 mg-325 1 tab PO Q6H PRN pain 09/20/24 09/20/24 History mg tablet potassium chloride 20 mEq 20 meq PO DAILY 09/20/24 History tablet,extended release telotristat ethyl 250 mg tablet 250 mg PO TID 09/20/24 09/20/24 History (Xermelo) Allergy/AdvReac Type Severity Reaction Status Date / Time amoxicillin Allergy Rash Verified 09/20/24 13:53 codeine AdvReac Nausea Verified 09/20/24 13:53 Family History Mother Heart disease Myocardial infarction CAD (coronary artery disease) Father COPD (chronic obstructive pulmonary disease) Surgical History H/O resection of small bowel S/P colectomy History of appendectomy History of cholecystectomy Social History household members: spouse Smoking Status: Never smoker how long ago did patient quit smoking: Patient smoked in the only and quit remotely. alcohol intake: never substance use type: does not use Vital Signs Vital Signs Vital Signs: 09/20/24 13:54 09/20/24 14:15 09/20/24 14:39 Temperature 97.6 F L Temperature Source Oral Pulse Rate 57 L 61 Pulse Strength Respiratory Rate 14 16 Respiratory Effort Respiratory Depth Respiratory Pattern Blood Pressure 191/93 H 174/77 H Blood Pressure Mean 125 109 Blood Pressure Source Blood Pressure Position Blood Pressure Location Pulse Ox 96 96 96 Oxygen Delivery Method Room Air Room Air Room Air 09/20/24 14:45 09/20/24 15:15 09/20/24 15:58 Temperature Temperature Source Pulse Rate 58 L 58 L 54 L Pulse Strength Respiratory Rate 16 16 16 Respiratory Effort Respiratory Depth Respiratory Pattern Blood Pressure 178/80 H 162/84 H 162/86 H Blood Pressure Mean 112 110 111 Blood Pressure Source Blood Pressure Position Blood Pressure Location Pulse Ox 96 96 95 Oxygen Delivery Method Room Air Room Air Room Air 09/20/24 17:12 09/20/24 18:37 09/20/24 18:49 Temperature 97.6 F L 97.8 F Temperature Source Oral Pulse Rate 56 L 56 L 54 L Pulse Strength Respiratory Rate 16 16 18 Respiratory Effort Respiratory Depth Respiratory Pattern Blood Pressure 164/78 H 176/84 H 164/74 H Blood Pressure Mean 106 114 104 Blood Pressure Source Monitor Blood Pressure Position Semi-Fowlers Blood Pressure Location Right Arm Pulse Ox 95 97 99 Oxygen Delivery Method Room Air Room Air 09/20/24 20:10 09/20/24 20:45 09/20/24 22:20 Temperature 97.7 F L Temperature Source Temporal Pulse Rate 55 L Pulse Strength Respiratory Rate 18 Respiratory Effort Normal Non-Labored Respiratory Depth Normal Respiratory Pattern Normal Blood Pressure 162/80 H Blood Pressure Mean 107 Blood Pressure Source Monitor Blood Pressure Position Semi-Fowlers Blood Pressure Location Right Arm Pulse Ox 96 98 Oxygen Delivery Method Room Air Room Air Room Air 09/20/24 22:20 09/21/24 02:20 09/21/24 02:25 Temperature 97.5 F L Temperature Source Temporal Pulse Rate 53 L Pulse Strength Normal (2+) Respiratory Rate 18 Respiratory Effort Normal Non-Labored Respiratory Depth Normal Respiratory Pattern Normal Blood Pressure 182/78 H Blood Pressure Mean 112 Blood Pressure Source Monitor Blood Pressure Position Semi-Fowlers Blood Pressure Location Right Arm Pulse Ox 98 Oxygen Delivery Method Room Air Room Air 09/21/24 06:18 09/21/24 07:55 09/21/24 08:00 Temperature 97.5 F L 97.7 F L Temperature Source Temporal Oral Pulse Rate 53 L 56 L Pulse Strength Normal (2+) Respiratory Rate 18 18 Respiratory Effort Respiratory Depth Respiratory Pattern Blood Pressure 173/82 H 171/78 H Blood Pressure Mean 112 109 Blood Pressure Source Monitor Blood Pressure Position Semi-Fowlers Blood Pressure Location Right Arm Pulse Ox 97 96 Oxygen Delivery Method Room Air Room Air 09/21/24 08:03 Temperature Temperature Source Pulse Rate Pulse Strength Respiratory Rate Respiratory Effort Normal Non-Labored Respiratory Depth Normal Respiratory Pattern Normal Blood Pressure Blood Pressure Mean Blood Pressure Source Blood Pressure Position Blood Pressure Location Pulse Ox Oxygen Delivery Method Room Air Weight Weight: 76.1 kg Body Mass Index (BMI) 22.7 Physical Exam Neuro Neuro Narrative: Neurological examination: General: The patient appears nutritionally appropriate, well-groomed, and appears comfortable in noacute distress. Mental Status: The patient?s mental status was normal including orientation. Language was intact. Cranial nerves: No visual complaints, and extra-ocular motion was intact. Face motion symmetric.Tongue was midline with normal movement. There was no dysarthria. Motor: Anti-gravity in all four extremities. No pronator drift. Sensation: Intact light touch bilaterally. Coordination: Bilateral finger to nose was normal. There was no dysmetria. Gait: deferred Lab / Micro Data 09/21/24 05:36 09/21/24 05:36 Labs: Laboratory Results - last 24 hr 09/20/24 14:10: WBC 15.2 H, RBC 4.99, Hgb 15.8, Hct 47.0, MCV 94.2 H, MCH 31.7, MCHC 33.6, RDW Std Deviation 46.4 H, RDW Coeff of Gretel 13.3, Plt Count 213, MPV 8.9, Immature Gran % (Auto) 0.500, Neut % (Auto) 92.9 H, Lymph % (Auto) 3.0 L, [place] % (Auto) 3.2, Eos % (Auto) 0.1, Baso % (Auto) 0.3, Absolute Neuts (auto) 14.1 H, Absolute Lymphs (auto) 0.45 L, Nucleated RBC % 0, PT 13.2, INR 1.0, APTT27.0, Sodium 142, Potassium 4.6, Chloride 106, Carbon Dioxide 23.3, Anion Gap 12, BUN 22 H, Creatinine 1.64 H, Estim Creat Clear Calc 44.22 L, Est GFR (MDRD) Non-Af 42 L, BUN/Creatinine Ratio 13.6, Glucose 112 H, Calcium 8.9, Total Bilirubin 0.47, AST 28, ALT 19, Alkaline Phosphatase 103, Troponin T High Sens 60 H*, Total Protein 7.4, Albumin 4.5, Globulin 2.9, Albumin/Globulin Ratio 1.6,Lipase 23 09/20/24 14:54: POC Glucose 96 09/20/24 16:00: Urine Color Straw, Urine Clarity Clear, Urine pH 6.0, Ur Specific [place] 1.015, Urine Protein 30 H, Urine Glucose (UA) Normal, Urine Ketones Negative, Urine Occult Blood 25 H, Urine Nitrite Negative, Urine Bilirubin Negative, Urine Urobilinogen Normal, Ur Leukocyte Esterase Negative, Urine RBC 0 SEEN, Urine WBC 0 SEEN, Ur Squamous Epith Cells 0 SEEN, Calcium Oxalate Crystal RARE,Urine Bacteria 0 SEEN, Fine Granular Casts 0-5 SEEN, UrineMucus 0 SEEN 09/20/24 16:10: Phosphorus 2.7, Magnesium 1.6, Troponin T Hi Sens 2 Hr 56 H* 09/20/24 20:15: Troponin T Hi Sens 4Hr 58 H* 09/21/24 05:36: WBC 11.3 H, RBC 4.27 L, Hgb 13.6, Hct 40.1, MCV 93.9, MCH 31.9, MCHC 33.9, RDW Std Deviation 45.6 H, RDW Coeff of Gretel 13.3, Plt Count 188, MPV 8.9, Immature Gran % (Auto) 0.400, Neut % (Auto) 88.5 H, Lymph % (Auto) 6.3 L, [place] % (Auto) 3.9, Eos % (Auto) 0.5, Baso % (Auto) 0.4, Absolute Neuts (auto) 10.0 H, Absolute Lymphs (auto) 0.71 L, Nucleated RBC % 0, Sodium 140, Potassium 4.6, Chloride 109 H, Carbon Dioxide 20.5 L, Anion Gap 10, BUN 17, Creatinine 1.49 H, Estim Creat Clear Calc 43.27 L, Est GFR (MDRD) Non-Af 47 L, BUN/Creatinine Ratio 11.1, Glucose 116 H, Hemoglobin A1c 5.5, Calcium 8.2, TotalBilirubin 0.53, AST 21, ALT 13, Alkaline Phosphatase 85, Total Protein 5.9, Albumin 3.7, Globulin 2.1 L, Albumin/Globulin Ratio 1.8, Triglycerides 117, Cholesterol 175, LDL Cholesterol, Calc 91, VLDL Cholesterol 23, HDL Cholesterol 61, Cholesterol/HDL Ratio 2.89, TSH 2.040 Imaging Radiology Impression Abdomen/Pelvis CT 09/20/24 14:15 IMPRESSION: 1. Nonspecific lobulated isodense lesion in the pelvis measuring up to 3.4 cm. This could be enlarged lymph node. Neoplastic can not be excluded. Clinical correlation is recommended. 2. Mild esophageal hiatal hernia. 3. Fecal retention in the colon consistent with constipation. 4. Colonic diverticulosis without acute diverticulitis. Reading Location: [facility] Brain CT 09/20/24 14:15 IMPRESSION: 1. Small vessel ischemic/degenerative changes. 2. No acute intracranial hemorrhage, midline shift or mass effect. If symptoms persist, further evaluation with MRI is recommended. 3. Generalized brain atrophy. Reading Location: [facility] Head/Neck CTA 09/20/24 14:16 IMPRESSION: Mild scattered atherosclerotic calcification of the anterior and posterior intracranial and extracranial circulation without hemodynamically significant stenosis. [facility] Chest X-Ray 09/20/24 16:30 IMPRESSION: NO ACUTE FINDINGS. Reading [facility] Brain MRI 09/21/24 09:00 IMPRESSION: 1. Acute nonhemorrhagic infarct right cerebellum. 2. [place] nonspecific chronic white matter changes, likely chronic small-vessel ischemic change. 3. Mild generalized atrophy. 4. No enhancing lesions Reading [facility] Active Medications Active Medications Active Medications: Current Medications Generic Name Dose Route Start Last Admin Trade Name Freq PRN Reason Stop Dose Admin Acetaminophen 650 mg 09/20/24 18:40 Acetaminophen 325 Mg Tablet PO Q4H PRN PRN Fever, pain 1-10/10 Al Hydroxide/Mg Hydroxide 30 ml 09/20/24 18:40 Mag Hydrox/Al Hydrox/Simeth 30 Ml Udc PO Q6H PRN PRN Gastric Burning Albuterol Sulfate 2.5 mg 09/20/24 18:40 Albuterol 2.5 Mg/3 Ml Vial.Neb. INHALATION Q2H PRN PRN Dyspnea, wheezing Amlodipine Besylate 10 mg 09/21/24 10:00 09/21/24 11:11 Amlodipine 10 Mg Tablet PO Not Given DAILY [facility] Protocol Aspirin 81 mg 09/21/24 08:00 09/21/24 08:21 Aspirin 81 Mg Tab.Chew PO 81 mg BREAKFAST MAYELA Administration Clarify Med Order 1 each 09/20/24 19:15 09/20/24 20:29 Clarify Order NOTE Not Given CLARIFY MAYELA Colestipol HCl 1 gm 09/20/24 22:00 09/21/24 08:20 Colestipol 1 Gm Tablet PO 1 gm BID MAYELA Administration Enoxaparin Sodium 40 mg 09/21/24 10:00 09/21/24 08:21 Enoxaparin 40 Mg/0.4 Ml Syringe SC 40 mg DAILY MAYELA Administration Escitalopram Oxalate 10 mg 09/21/24 10:00 09/21/24 08:21 Escitalopram Oxalate 10 Mg Tablet PO 10 mg DAILY MAYELA Administration Guaifenesin 20 ml 09/20/24 18:40 Guaifenesin 10 Ml Udc (200mg/10ml) PO Q4H PRN PRN COUGH Hydralazine HCl 5 mg 09/20/24 18:40 Hydralazine 20 Mg/Ml Vial IV 09/21/24 18:40 Q30M PRN maintain BP parameters with HR <60 Pantoprazole Sodium 40 mg/ 110 mls @ 330 mls/hr 09/20/24 18:40 09/21/24 09:28 Sodium Chloride IV Infused Q12 MAYELA Infusion Sodium Chloride 250 mls @ 15 mls/hr 09/20/24 18:41 IV .[id number] PRN Saline Flush Sodium Chloride 250 mls @ 15 mls/hr 09/20/24 18:41 IV .[id number] PRN Additional IVPB Infusion Labetalol HCl 10 - 20 mg 09/20/24 18:40 Labetalol 20 Mg/4 Ml Vial IV 09/21/24 18:40 Q10M PRN PRN maintain BP parameters with HR >/=60 Levothyroxine Sodium 25 mcg 09/21/24 06:00 09/21/24 06:23 Levothyroxine 25 Mcg Tablet PO 25 mcg DAILY@0600 MAYELA Administration Loperamide HCl 4 mg 09/21/24 10:00 Loperamide 2 Mg Capsule PO BID MAYELA Loratadine 10 mg 09/21/24 10:00 09/21/24 08:21 Loratadine 10 Mg Tablet PO 10 mg DAILY MAYELA Administration Lorazepam 0.5 mg 09/20/24 18:40 Lorazepam 0.5 Mg Tablet PO X1 PRN Anxiety with MRI Melatonin 3 mg 09/20/24 18:40 Melatonin 3 Mg Tablet PO QHS PRN PRN INSOMNIA Non-Formulary Medication 30 mg 09/20/24 18:40 Octreotide Acetate IM Q28D MAYELA Ondansetron HCl 4 mg 09/20/24 18:40 09/21/24 02:25 Ondansetron 4 Mg/2 Ml Vial IV 4 mg Q8H PRN PRN Administration NAUSEA/VOMITING Oxycodone HCl 5 mg 09/20/24 18:49 Oxycodone 5 Mg Tablet PO Q6H PRN pain 1-10 Prochlorperazine Edisylate 5 mg 09/20/24 18:40 Prochlorperazine 10 Mg/2 Ml Vial IV Q4H PRN PRN Breakthrough Nausea/Vomiting Sodium Chloride 10 - 40 ml 09/20/24 18:41 0.9% Saline Lock 10 Ml Syringe IV UD PRN SALINE FLUSH NIHSS NIHSS Nursing Documentation NIHSS Nursing Documentation: NIHSS: Ischemic Stroke/TIA Start: 09/20/24 18:40 Text: For PCU Patients: NIH and Neuro Check every 4 Status: Active hours, PRN and with change in RN caregiver. Freq: [id number] Protocol: Activity Type Activity Date Activity User E-sign Co-sign Detail Recorded Client Recorded Date Recorded By Document 09/21/24 08:00 pc 09/21/24 08:02 09/21/24 08:00 NIH Stroke Scale [NIHSS] A score of 0 is normal or asymptomatic . Total possible score is 42. Inpatient: RN or Physician to activate a stroke alert for onset of new stroke symptoms or with NIHSS increase >/= 3 points. Following change in neurological status, NIHSS will be performed per physician order or more frequently PRN. -1a. Level of Consciousness 0 - Alert; keenly responsive -1b. LOC Questions 0 - Answers BOTH questions correctly -1c. LOC Commands 0 - Performs BOTH tasks correctly -2. Best Gaze 0 - Normal -3. Visual 0 - No visual loss -4. Facial Palsy 0 - Normal symmetrical movements -5a. Left Arm 0 - No drift; arm holds 90 ( or 45) degrees for full 10 seconds -5b. Right Arm 0 - No drift; arm holds 90 ( or 45) degrees for full 10 seconds -6a. Left Leg 0 - No drift; leg holds 30- degree position for full 5 seconds -6b. Right Leg 0 - No drift; leg holds 30- degree position for full 5 seconds -7. Limb Ataxia 0 - Absent -8. Sensory 0 - Normal; no sensory loss -9. Best Language 0 - No aphasia; normal -10. Dysarthria 0 - Normal -11. Extinction and Inattention 0 - No abnormality -Total 0 Query Text:A score of 0 is normal or asymptomatic. Total possible score is 42 . ED: Notify Physician for NIHSS increase by > / = 3 points. Inpatient: RN or Physician to activate a stroke alert for NIHSS increase of > / = 3 points. Coma Scale [Assess] -Eye Opening Spontaneous -Motor Obeys Commands -Verbal Oriented [Total] -Coma Scale Total 15 NIHSS 1a. Level of Consciousness: 0 - Alert; keenly responsive 1b. LOC Questions: 0 - Answers BOTH questions correctly 1c. LOC Commands: 0 - Performs BOTH tasks correctly 2. Best Gaze: 0 - Normal 3. Visual: 0 - No visual loss 4. Facial Palsy: 0 - Normal symmetrical movements 5a. Left Arm: 0 - No drift; arm holds 90 (or 45) degrees for full 10 seconds 5b. Right Arm: 0 - No drift; arm holds 90 (or 45) degrees for full 10 seconds 6a. Left Le - No drift; leg holds 30-degree position for full 5 seconds 6b. Right Le - No drift; leg holds 30-degree position for full 5 seconds 7. Limb Ataxia: 0 - Absent 8. Sensory: 0 - Normal; no sensory loss 9. Best Language: 0 - No aphasia; normal 10. Dysarthria: 0 - Normal 11. Extinction and Inattention: 0 - No abnormality Total: 0 09/21/24 1245 Cosigner Signature (if applicable): CC: [facility]~ Signed [facility]05-18-2025 Discharge summary Author René Silva [facility] Note Date/Time September 20, 2024 6:39p m [facility] Medical Records Department [address] [place] [address] Emergency Department Summary 09/20/24 MR#: [id number] Acct: [id number] Name: ITZEL GOMEZ Rep #:[id number] : 1945 79 From: René Silva DO PCP: [facility] Status:ADM KESHAV Location: [address] History of Present Illness Chief Complaint: Nausea/Vomiting Narrative Narrative: Patient is a 79-year-old male with past medical history of carcinoid tumor, CVA,hypertension, anxiety, depression who presents to the emergency department chiefcomplaint dizziness nausea vomiting. According to the patient he went to bed around midnight last night with felt his normal self he states that he woke up this morning he stood up and was dizzy and states that he felt like he was spinning. He states he had difficulty walking to the bathroom he had to hold onto the side of the wall as well as his cane. He states he did fall but denieshitting his head he states that he is not on any blood thinning medications. Patient states that since his symptoms are getting better he came here for further evaluation management. [facility] Medical History Bilateral pneumonia History of COVID-19 Anxiety and depression Cancer Former smoker Hypertension Stroke/cerebrovascular accident Multiple metastatic carcinoid tumors Home Medications ?Medication ?Instructions ?Recorded ?Last Taken ?Type amlodipine 10 mg tablet 10 mg PO DAILY 90 days #90 t abs 09/20/20 09/20/24 Rx loratadine 10 mg tablet 10 mg PO DAILY ALLERGIES 09/20/21 History aspirin 81 mg tablet 81 mg PO DAILY 09/20/2409/03 History colestipol 1 gram tablet 1 g PO BID 09/20/24 09/20/24 History escitalopram oxalate 10 mg tablet 10 mg PO DAILY 09/2009/20/24 History levothyroxine 25 mcg tablet 25 mcg PO DAILY 09/20/24 0 09/19/24 History (Levo-T) loperamide 2 mg tablet (Diamode) 4 mg PO BID 09/20/24 09/20/24 History octreotide acetate 30 mg IM Q28D 09/20/24 Unkno wn History oxycodone-acetaminophen 5 mg-325 1 tab PO Q6H PRN pain 09/20/24 09/20/24 History mg tablet potassium chloride 20 mEq 20 meq PO DAILY 09/20/24 History tablet,extended release telotristat ethyl 250 mg tablet 250 mg PO TID 09/20/24 09/20/24 History (Xermelo) Allergy/AdvReac Type Severity Reaction Status Date / Time amoxicillin Allergy Rash Verified 09/20/24 13:53 codeine AdvReac Nausea Verified 09/20/24 13:53 Family History Mother Heart disease Myocardial infarction CAD (coronary artery disease) Father COPD (chronic obstructive pulmonary disease) Surgical History H/O resection of small bowel S/P colectomy History of appendectomy History of cholecystectomy Social History household members: spouse Smoking Status: Never smoker how long ago did patient quit smoking: Patient smoked in the only and quit remotely. 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 this is not new Cardiovascular: Denies chest pain or palpitations Respiratory: Denies coughing wheezing shortness of breath Abdomen: Complains of nausea vomiting as noted above denies abdominal pain : Denies any urinary symptoms Neurological: Complains of difficulty walking as noted above secondary to dizziness denies any tingling Musculoskeletal: Denies back pain Skin: Denies any rashes or lesions EXAM Physical Exam Narrative Exam Narrative: General: Patient lying in bed rest comfortably did not appear to be in acute distress Head: Atraumatic, normocephalic Eyes: PERRL bilaterally, EOMI bilaterally, no conjunctival injection noted Neck: Soft, supple, trachea midline Cardiovascular: Patient bradycardic with a regular rhythm no murmurs gallops rubs noted m Respiratory: Clear to auscultation bilaterally Abdomen: Soft, nondistended, nontender to palpation Extremities: +4/5 strength noted in the bilateral upper and lower extremities, radial pulses +2/4 in the bilateral extremities Neurological: Patient follow commands knew that he was at [facility] year is 2024. NIH is 0 GCS 15 Skin: Warm, dry, tact no rashes or lesions noted Const Vital Signs: 09/20/24 13:54 09/20/24 14:15 09/20/24 14:39 Temperature 97.6 F L Temperature Source Oral Pulse Rate 57 L 61 Respiratory Rate 14 16 Blood Pressure 191/93 H 174/77 H Blood Pressure Mean 125 109 Pulse Ox 96 96 96 Oxygen Delivery Method Room Air Room Air Room Air 09/20/24 14:45 09/20/24 15:15 09/20/24 15:58 Temperature Temperature Source Pulse Rate 58 L 58 L 54 L Respiratory Rate 16 16 16 Blood Pressure 178/80 H 162/84 H 162/86 H Blood Pressure Mean 112 110 111 Pulse Ox 96 96 95 Oxygen Delivery Method Room Air Room Air Room Air 09/20/24 17:12 Temperature Temperature Source Pulse Rate 56 L Respiratory Rate 16 Blood Pressure 164/78 H Blood Pressure Mean 106 Pulse Ox 95 Oxygen Delivery Method Room Air MDM MDM MDM Narrative Medical decision making narrative: Patient is a 79-year-old male who presented to the Emergency Department chief complaint of dizziness and nausea vomiting. On the differential diagnose includes but limited to intracranial hemorrhage, ischemic stroke, posterior circulation stroke, hemorrhagic stroke, carcinoid mets to the brain, electrolyteabnormality, UTI. Once workup is obtained and reviewed he will be reevaluated. Tetanus shot will be updated Patient is not a tenecteplase candidate as his last known well was midnight. Patient CBC was significant leukocytosis of 15,000, hemoglobin 15.8, platelet count was noted be normal at 213. Patient INR normal at 1, PT of 13.2. Patientsodium normal at 142, potassium was 4.6, creatinine was elevated 1.64 he has underlying chronic kidney disease. Patient's AST and ALT were 28 and 19 respectively. Patient's troponin was noted be 60 with a delta troponin obtainedat 56. Patient's EKG reviewed showed bradycardia with a rate of 57 beats per minutes. Patient's lipase was elevated at 23. Patient's urinalysis reviewed showed no evidence of infection. Patient's chest x-ray reviewed by myself and by radiology which showed no acute findings. Patient CT head and brain without contrast showed small vessel ischemic/degenerative changes no acute intracranialhemorrhage midline shift or mass effect. Generalized brain atrophy. Patient's CT ab pelvis with IV contrast showed nonspecific lobulated isodense lesion in the pelvis measuring up to 3.4 centimeters this could be enlarged lymph node neoplastic cannot be excluded. Mild esophageal hiatal hernia. Fecal retention in the colon consistent with constipation colonic diverticulosis without Diverticulitis. Discussed case with fraud manager Dr. Garcia and states that he does not believe that this is cardiac in nature. Patient was given 325 mg aspirin. Discussed case with neurologist Dr. Johnson who reviewed the images and states that the patient to be admitted to the hospital for further evaluation management of his dizziness and difficulty walking. Will discuss case with hospitalist for admission. Spoke with hospitalist Dr. Falcon who accept patient for admission. Notified thepatient and significant other bedside they are agreeable to plan all question concerns answered. Lab Data Labs: Laboratory Results - last 24 hr 09/20/24 09/20/24 09/20/24 14:10 14:54 16:00 WBC 15.2 H RBC 4.99 Hgb 15.8 Hct 47.0 MCV 94.2 H MCH 31.7 MCHC 33.6 RDW Std Deviation 46.4 H RDW Coeff of Gretel 13.3 Plt Count 213 MPV 8.9 Immature Gran % (Auto) 0.500 Neut % (Auto) 92.9 H Lymph % (Auto) 3.0 L [place] % (Auto) 3.2 Eos % (Auto) 0.1 Baso % (Auto) 0.3 Absolute Neuts (auto) 14.1 H Absolute Lymphs (auto) 0.45 L Nucleated RBC % 0 PT 13.2 INR 1.0 APTT 27.0 Sodium 142 Potassium 4.6 Chloride 106 Carbon Dioxide 23.3 Anion Gap 12 BUN 22 H Creatinine 1.64 H Estim Creat Clear Calc 44.22 L Est GFR (MDRD) Non-Af 42 L BUN/Creatinine Ratio 13.6 Glucose 112 H Calcium 8.9 Total Bilirubin 0.47 AST 28 ALT 19 Alkaline Phosphatase 103 Troponin T High Sens 60 H* Troponin T Hi Sens 2 Hr Total Protein 7.4 Albumin 4.5 Globulin 2.9 Albumin/Globulin Ratio 1.6 Lipase 23 Urine Color Straw Urine Clarity Clear Urine pH 6.0 Ur Specific [place] 1.015 Urine Protein 30 H Urine Glucose (UA) Normal Urine Ketones Negative Urine Occult Blood 25 H Urine Nitrite Negative Urine Bilirubin Negative Urine Urobilinogen Normal Ur Leukocyte Esterase Negative Urine RBC 0 SEEN Urine WBC 0 SEEN Ur Squamous Epith Cells 0 SEEN Calcium Oxalate Crystal RARE Urine Bacteria 0 SEEN Fine Granular Casts 0-5 SEEN Urine Mucus 0 SEEN POC Glucose 96 09/20/24 16:10 WBC RBC Hgb Hct MCV MCH MCHC RDW Std Deviation RDW Coeff of Gretel Plt Count MPV Immature Gran % (Auto) Neut % (Auto) Lymph % (Auto) [place] % (Auto) Eos % (Auto) Baso % (Auto) Absolute Neuts (auto) Absolute Lymphs (auto) Nucleated RBC % PT INR APTT Sodium Potassium Chloride Carbon Dioxide Anion Gap BUN Creatinine Estim Creat Clear Calc Est GFR (MDRD) Non-Af BUN/Creatinine Ratio Glucose Calcium Total Bilirubin AST ALT Alkaline Phosphatase Troponin T High Sens Troponin T Hi Sens 2 Hr 56 H* Total Protein Albumin Globulin Albumin/Globulin Ratio Lipase Urine Color Urine Clarity Urine pH Ur Specific [place] Urine Protein Urine Glucose (UA) Urine Ketones Urine Occult Blood Urine Nitrite Urine Bilirubin Urine Urobilinogen Ur Leukocyte Esterase Urine RBC Urine WBC Ur Squamous Epith Cells Calcium Oxalate Crystal Urine Bacteria Fine Granular Casts Urine Mucus POC Glucose Radiography Diagnostic Testing: Clinical Impression(s) from Imaging Studies Abdomen/Pelvis CT 09/20/24 14:15 IMPRESSION: 1. Nonspecific lobulated isodense lesion in the pelvis measuring up to 3.4 cm. This could be enlarged lymph node. Neoplastic can not be excluded. Clinical correlation is recommended. 2. Mild esophageal hiatal hernia. 3. Fecal retention in the colon consistent with constipation. 4. Colonic diverticulosis without acute diverticulitis. Reading Location: [facility] Brain CT 09/20/24 14:15 IMPRESSION: 1. Small vessel ischemic/degenerative changes. 2. No acute intracranial hemorrhage, midline shift or mass effect. If symptoms persist, further evaluation with MRI is recommended. 3. Generalized brain atrophy. Reading Location: [facility] Head/Neck CTA 09/20/24 14:16 IMPRESSION: Mild scattered atherosclerotic calcification of the anterior and posterior intracranial and extracranial circulation without hemodynamically significant stenosis. Reading Location[facility] Chest X-Ray 09/20/24 16:30 IMPRESSION: NO ACUTE FINDINGS. [facility] Discharge Plan Dx/Rx/DC Orders Clinical Impression: Dizziness, Nausea & vomiting Disposition Disposition: Acute Care Hospital [facility] Discharge Date/Time: 09/20/24 18:38 What to do if you have Problems For any increased pain, shortness of breath, bleeding, nausea or vomiting, chestpain, or any unexpected problems, contact your Primary Care Provider. Call [employer] [facility] ([phone]) or report to the closest Emergency Room. Call 911 if necessary. 09/20/241838 <Electronically signed by René Silva DO> Cosigner Signature (if applicable): CC: [facility] ~ Signed [facility] Work Phone: [phone] History and physical note Author Linda Falcon [facility] Note Date/Time September 20, 2024 6:33p m [facility] Medical Records Department [address] [place] [address] H&P Exam - Hospitalist 09/20/24 180 MR#: [id number] Acct: [id number] Name: ITZEL GOMEZ Rep #:[id number] : 1945 79 From: Linda Falcon MD PCP: [facility] Status:ADM KESHAV Location: [place] [address] HPI - General General Date of Admission: 09/20/24 Date of Service: 09/20/24 Chief Complaint: Falls, LH/Dizziness, N/V. 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 He also reports since onset a generalized headache on the top of his head described as pressure-like sensation rated 4 out of 10 in severity with no light or sound sensitivity. He notes that currently seated in the ED his nausea and emesis are completely abated but when he attempts to move at all and get up he does not know which way is up or down and has onset of nausea with bouts of emesis. In the ED NIHSS assessment 0. Workup in the ED included T97.6, heart rate 57, BP 191/93, respiratory rate 14, 96% on room air, CBC with WBC 15.2, hemoglobin 15.8, platelet 213 with left shift and lymphopenia, CBC with WBC 15.2, hemoglobin 15.8, platelet 213 with left shift and lymphopenia, unremarkable coags, CMP with BUN/2021/1.64, GFR 42, glucose 112, hepatic profile not marked appearing, troponin 60 with repeat delta troponin 56, CT head with small vessel ischemic/degenerative changes with no acute intracranial findings with generalized brain atrophy, CTA head and neck with mild scattered atherosclerotic calcifications of the anterior and posteriorintracranial extracranial circulation without any hemodynamically significant stenosis, CT abdomen and pelvis with IV contrast nonspecific lobulated isodense lesions in the pelvis measuring up to 3.4 cm likely consistent with his metastatic carcinoid tumors, mild esophageal hiatal hernia, some fecal retentionin the colon consistent with constipation, colonic diverticulosis without acute diverticulitis, chest x-ray with no acute cardiopulmonary findings, EKG with sinus bradycardia with no acute evidence of. In the ED patient ministered 2 L normal saline, Zofran 4 mg IV x 1, tetanus update and full-strength aspirin therapy. ED discussed case also with on-call neurologist with stroke alert who recommended continued neurological evaluation to be cautious. [facility] Medical History Bilateral pneumonia History of COVID-19 Anxiety and depression Cancer Former smoker Hypertension Stroke/cerebrovascular accident Multiple metastatic carcinoid tumors Home Medications ?Medication ?Instructions ?Recorded ?Last Taken ?Type amlodipine 10 mg tablet 10 mg PO DAILY 90 days #90 t abs 09/20/20 09/20/24 Rx loratadine 10 mg tablet 10 mg PO DAILY ALLERGIES 09/20/21 History aspirin 81 mg tablet 81 mg PO DAILY 09/20/2409/03 History colestipol 1 gram tablet 1 g PO BID 09/20/24 09/20/24 History escitalopram oxalate 10 mg tablet 10 mg PO DAILY 09/2009/20/24 History levothyroxine 25 mcg tablet 25 mcg PO DAILY 09/20/24 0 09/19/24 History (Levo-T) loperamide 2 mg tablet (Diamode) 4 mg PO BID 09/20/24 09/20/24 History octreotide acetate 30 mg IM Q28D 09/20/24 Unkno wn History oxycodone-acetaminophen 5 mg-325 1 tab PO Q6H PRN pain 09/20/24 09/20/24 History mg tablet potassium chloride 20 mEq 20 meq PO DAILY 09/20/24 History tablet,extended release telotristat ethyl 250 mg tablet 250 mg PO TID 09/20/24 09/20/24 History (Xermelo) Allergy/AdvReac Type Severity Reaction Status Date / Time amoxicillin Allergy Rash Verified 09/20/24 13:53 codeine AdvReac Nausea Verified 09/20/24 13:53 Family History Mother Heart disease Myocardial infarction CAD (coronary artery disease) Father COPD (chronic obstructive pulmonary disease) Surgical History H/O resection of small bowel S/P colectomy History of appendectomy History of cholecystectomy Social History household members: spouse Smoking Status: Never smoker how long ago did patient quit smoking: Patient smoked in the only and quit remotely. alcohol intake: never substance use type: does not use ROS ROS Narrative Admission Review of Systems: CONSTITUTIONAL: No weight loss, fever, chills, + weakness or fatigue. HEENT: + Lightheadedness, dizziness, headache. Eyes: No visual loss, blurred vision, double vision or yellow sclerae. Ears, Nose, Throat: No hearing loss, sneezing, congestion, runny nose or sore throat. SKIN: No rash or itching, lesions, wounds. CARDIOVASCULAR: + Lightheadedness, dizziness. No chest pain, chest pressure or chest discomfort, palpitations, edema, orthopnea, syncopal events. RESPIRATORY: No marked dyspnea, cough, marked sputum production, wheezing, hemoptysis. GASTROINTESTINAL: + anorexia, chronic abdominal pain, chronic loose stools, bouts of nausea and emesis. No melena, BRBPR. GENITOURINARY: No dysuria, frequency, urgency or retention. NEUROLOGICAL: + Lightheadedness, dizziness, falls, headache. No paralysis, ataxia, numbness or tingling in the extremities, focal weakness, change in bowelor bladder control, seizure. MUSCULOSKELETAL: + muscle, back pain, joint pain or stiffness. HEMATOLOGIC: + anemia, easy bleeding/bruising. LYMPHATICS: No enlarged nodes. No history of splenectomy. PSYCHIATRIC: + history of depression and anxiety/mood disorder. ENDOCRINOLOGIC: No reports of sweating, cold or heat intolerance. No polyuria orpolydipsia. ALLERGIES: + History of allergic rhinitis. Vital Signs Vital Signs Vital Signs: 09/20/24 13:54 09/20/24 14:15 09/20/24 14:39 Temperature 97.6 F L Temperature Source Oral Pulse Rate 57 L 61 Respiratory Rate 14 16 Blood Pressure 191/93 H 174/77 H Blood Pressure Mean 125 109 Pulse Ox 96 96 96 Oxygen Delivery Method Room Air Room Air Room Air 09/20/24 14:45 09/20/24 15:15 09/20/24 15:58 Temperature Temperature Source Pulse Rate 58 L 58 L 54 L Respiratory Rate 16 16 16 Blood Pressure 178/80 H 162/84 H 162/86 H Blood Pressure Mean 112 110 111 Pulse Ox 96 96 95 Oxygen Delivery Method Room Air Room Air Room Air 09/20/24 17:12 Temperature Temperature Source Pulse Rate 56 L Respiratory Rate 16 Blood Pressure 164/78 H Blood Pressure Mean 106 Pulse Ox 95 Oxygen Delivery Method Room Air Weight Weight: 215 lb 2.738 oz Body Mass Index (BMI) 29.2 Physical Exam Narrative Physical Examination: General: Awake, alert, oriented x 3 and cooperative, seated upright in the ED bed, fatigued, using a right sided hearing aid. Skin: Normal color, normal turgor, no icterus, no cyanosis Except occasional very stage ecchymoses, abrasions. HEENT: AT/NC, EOMI, PERRLA, mildly dry MM, endentulous, no carotid bruits or JVDnoted. Lungs: Mildly diminished, greater bases, appropriate effort, no rales, ronchi orwheezing. Heart: Bradycardic with regular rhythm; no gallop, rub audible. Abdomen: Soft, NTTP, ND, mildly hyperactive BS, no markedly appreciated HSM. Extremities: No cyanosis, clubbing, or edema. Neurological: Patient awake, alert, oriented as noted, cognitive function intact; pupils equally reactive to light and accommodation, cranial nerves grossnormal, moving all 4 extremities, no focal deficits, finger-nose and [id number] appropriate, equivocal Babinski, sensation intact. Psychiatric: Affect appears fatigued, no acute evidence of depressive or anxietyfeelings. Results Lab / Micro Data 09/20/24 14:10 09/20/24 14:10 Labs: Laboratory Results - last 24 hr 09/20/24 14:10: WBC 15.2 H, RBC 4.99, Hgb 15.8, Hct 47.0, MCV 94.2 H, MCH 31.7, MCHC 33.6, RDW Std Deviation 46.4 H, RDW Coeff of Gretel 13.3, Plt Count 213, MPV 8.9, Immature Gran % (Auto) 0.500, Neut % (Auto) 92.9 H, Lymph % (Auto) 3.0 L, [place] % (Auto) 3.2, Eos % (Auto) 0.1, Baso % (Auto) 0.3, Absolute Neuts (auto) 14.1 H, Absolute Lymphs (auto) 0.45 L, Nucleated RBC % 0, PT 13.2, INR 1.0, APTT27.0, Sodium 142, Potassium 4.6, Chloride 106, Carbon Dioxide 23.3, Anion Gap 12, BUN 22 H, Creatinine 1.64 H, Estim Creat Clear Calc 44.22 L, Est GFR (MDRD) Non-Af 42 L, BUN/Creatinine Ratio 13.6, Glucose 112 H, Calcium 8.9, Total Bilirubin 0.47, AST 28, ALT 19, Alkaline Phosphatase 103, Troponin T High Sens 60 H*, Total Protein 7.4, Albumin 4.5, Globulin 2.9, Albumin/Globulin Ratio 1.6,Lipase 23 09/20/24 14:54: POC Glucose 96 09/20/24 16:00: Urine Color Straw, Urine Clarity Clear, Urine pH 6.0, Ur Specific [place] 1.015, Urine Protein 30 H, Urine Glucose (UA) Normal, Urine Ketones Negative, Urine Occult Blood 25 H, Urine Nitrite Negative, Urine Bilirubin Negative, Urine Urobilinogen Normal, Ur Leukocyte Esterase Negative, Urine RBC 0 SEEN, Urine WBC 0 SEEN, Ur Squamous Epith Cells 0 SEEN, Calcium Oxalate Crystal RARE, Urine Bacteria 0 SEEN, Fine Granular Casts 0-5 SEEN, UrineMucus 0 SEEN 09/20/24 16:10: Troponin T Hi Sens 2 Hr 56 H* Imaging Radiology Impression Abdomen/Pelvis CT 09/20/24 14:15 IMPRESSION: 1. Nonspecific lobulated isodense lesion in the pelvis measuring up to 3.4 cm. This could be enlarged lymph node. Neoplastic can not be excluded. Clinical correlation is recommended. 2. Mild esophageal hiatal hernia. 3. Fecal retention in the colon consistent with constipation. 4. Colonic diverticulosis without acute diverticulitis. Reading Location: [facility] Brain CT 09/20/24 14:15 IMPRESSION: 1. Small vessel ischemic/degenerative changes. 2. No acute intracranial hemorrhage, midline shift or mass effect. If symptoms persist, further evaluation with MRI is recommended. 3. Generalized brain atrophy. Reading Location: [facility] Head/Neck CTA 09/20/24 14:16 IMPRESSION: Mild scattered atherosclerotic calcification of the anterior and posterior intracranial and extracranial circulation without hemodynamically significant stenosis. Reading Location: [facility] Chest X-Ray 09/20/24 16:30 IMPRESSION: NO ACUTE FINDINGS. 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 #1. Intractable nausea, emesis, frequent falls with concern for vertigo with concern for possible posterior CVA with previous CVA history: Will admit to PCU,will obtain MRI Brain with and without contrast, ECHO, PT/OT/Speech/Nutrition evaluation per protocol. Will allow permissive HTN, maintain on asa, maintain on fall and aspiration precautions. Mag, TSH, FLP, HgbA1c requested. Maintain onfall and aspiration precautions. Continue neurology consultation. Given intractable nausea and emesis will initially maintain on clears with IV PPI and once clinically improving will advance diet. Certainly presentation could be confounded also by metastatic carcinoid tumors as noted below. #2. Elevated cardiac enzyme of unclear significance: Admission troponin 60 withrepeat delta troponin 56, chest x-ray no acute cardiopulmonary finding, EKG withbradycardia with no acute evidence of ischemia, will maintain on a monitored bedto assure no acute myocardial infarction with serial cardiac enzymes and EKGs. Magnesium level requested. FLP in AM. ASA, NG. ED discussed case with on-call fraud manager Dr. Garcia, who recommended continued observation but no intervention or consultation needed at this time and felt it was likely noncardiac in nature. #3. 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 If intractable nausea and emesis are not abating there is no obvious neurological finding for the reason for the symptoms may require GI involvement given underlying cancer history. Continue patient home Xermelo regimen. Will also initiate patient octreotide 30 mg IM injection as it appears he was due 09/19/2024 and was not injected. #4. Chronic Kidney Disease Stage III, unclear subtype. GFR trending: AdmissionBUN/Cr 22/1.64, GFR 42, baseline renal function more recently primarily 1.8-2.1 but has vacillated, most recently previous 09/25/2022 creatinine 2.09, repeat BMPin AM. #5. Hypertension: Will maintain permissive hypertension given presentation withurine agents per stroke protocol. #6. Allergic rhinitis: Will continue patient home fluticasone and loratadine home regimen. #7. Mood disorder/anxiety and depression: Will continue patient home aripiprazole regimen as well as escitalopram, encourage continued outpatient follow-up as previously arranged. #8. Former tobacco use: Encourage continued tobacco cessation. #9. Obesity: Weight loss and lifestyle changes encouraged. #10. DVT prophylaxis: Lovenox. #11. CODE status: Patient YAMILET is his and living will is currently in place. Discussed CODE status at length including difference between FULL code, DNR-CCA and DNR-CC status. Following discussions about the differences in these status, requested Full Code status. Advanced Care Planning Face to Face Time: 16minutes. Charges/Coding Visit Charges Inpatient E&M: 38210 Init Hosp L3 Procedures Hospitalists Procedures: 36644 Advncd Care Plan 30 Min 09/20/24 1833 <Electronically signed by Linda Falcon MD> Cosigner Signature (if applicable): CC: Dr. Linda Falcon MD; [facility]~ Signed [facility] Work Phone: [phone] Discharge summary [facility] Medical Records Department [address] [place] [address] Emergency Department Summary 09/20/24 MR#: [id number] Acct: [id number] Name: ITZEL GOMEZ Rep #:[id number] : 1945 79 From: René Silva DO PCP: [facility] Status:ADM KESHAV Location: [address] History of Present Illness Chief Complaint: Nausea/Vomiting Narrative Narrative: Patient is a 79-year-old male with past medical history of carcinoid tumor, CVA,hypertension, anxiety, depression who presents to the emergency department chiefcomplaint dizziness nausea vomiting. According to the patient he went to bed around midnight last night with felt his normal self he statesthat he woke up this morning he stood up and was dizzy and states that he felt like he was spinning. He states he had difficulty walking to the bathroom he had to hold onto the side of the wall as well as his cane. He states he did fall but denieshitting his head he states that he is not on any blood thinning medications. Patient states that since his symptoms are getting better he came here for further evaluation management. [facility] Medical History Bilateral pneumonia History of COVID-19 Anxiety and depression Cancer Former smoker Hypertension Stroke/cerebrovascular accident Multiple metastatic carcinoid tumors Home Medications ?Medication ?Instructions ?Recorded ?Last Taken ?Type amlodipine 10 mg tablet 10 mg PO DAILY 90 days #90 t abs 09/20/20 09/20/24 Rx loratadine 10 mg tablet 10 mg PO DAILY ALLERGIES 09/20/21 History aspirin 81 mg tablet 81 mg PO DAILY 09/20/2409/03 History colestipol 1 gram tablet 1 g PO BID 09/20/24 09/20/24 History escitalopram oxalate 10 mg tablet 10 mg PO DAILY 09/2009/20/24 History levothyroxine 25 mcg tablet 25 mcg PO DAILY 09/20/24 0 09/19/24 History (Levo-T) loperamide 2 mg tablet (Diamode) 4 mg PO BID 09/20/24 09/20/24 History octreotide acetate 30 mg IM Q28D 09/20/24 Unkno wn History oxycodone-acetaminophen 5 mg-325 1 tab PO Q6H PRN pain 09/20/24 09/20/24 History mg tablet potassium chloride 20 mEq 20 meq PO DAILY 09/20/24 History tablet,extended release telotristat ethyl 250 mg tablet 250 mg PO TID 09/20/24 09/20/24 History (Xermelo) Allergy/AdvReac Type Severity Reaction Status Date / Time amoxicillin Allergy Rash Verified 09/20/24 13:53 codeine AdvReac Nausea Verified 09/20/24 13:53 Family History Mother Heart disease Myocardial infarction CAD (coronary artery disease) Father COPD (chronic obstructive pulmonary disease) Surgical History H/O resection of small bowel S/P colectomy History of appendectomy History of cholecystectomy Social History household members: spouse Smoking Status: Never smoker how long ago did patient quit smoking: Patient smoked in the only and quit remotely. 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 this is not new Cardiovascular: Denies chest pain or palpitations Respiratory: Denies coughing wheezing shortness of breath Abdomen: Complains of nausea vomiting as noted above denies abdominal pain : Denies any urinary symptoms Neurological: Complains of difficulty walking as noted above secondary to dizziness denies any tingling Musculoskeletal: Denies back pain Skin: Denies any rashes or lesions EXAM Physical Exam Narrative Exam Narrative: General: Patient lying in bed rest comfortably did not appear to be in acute distress Head: Atraumatic, normocephalic Eyes: PERRL bilaterally, EOMI bilaterally, no conjunctival injection noted Neck: Soft, supple, trachea midline Cardiovascular: Patient bradycardic with a regular rhythm no murmurs gallops rubs noted m Respiratory: Clear to auscultation bilaterally Abdomen: Soft, nondistended, nontender to palpation Extremities: +4/5 strength noted in the bilateral upper and lower extremities, radial pulses +2/4 in the bilateral extremities Neurological: Patient follow commands knew that he was at [facility] year is 2024. NIH is 0 GCS 15 Skin: Warm, dry, tact no rashes or lesions noted Const Vital Signs: 09/20/24 13:54 09/20/24 14:15 09/20/24 14:39 Temperature 97.6 F L Temperature Source Oral Pulse Rate 57 L 61 Respiratory Rate 14 16 Blood Pressure 191/93 H 174/77 H Blood Pressure Mean 125 109 Pulse Ox 96 96 96 Oxygen Delivery Method Room Air Room Air Room Air 09/20/24 14:45 09/20/24 15:15 09/20/24 15:58 Temperature Temperature Source Pulse Rate 58 L 58 L 54 L Respiratory Rate 16 16 16 Blood Pressure 178/80 H 162/84 H 162/86 H Blood Pressure Mean 112 110 111 Pulse Ox 96 96 95 Oxygen Delivery Method Room Air Room Air Room Air 09/20/24 17:12 Temperature Temperature Source Pulse Rate 56 L Respiratory Rate 16 Blood Pressure 164/78 H Blood Pressure Mean 106 Pulse Ox 95 Oxygen Delivery Method Room Air [facility] MDM MDM Narrative Medical decision making narrative: Patient is a 79-year-old male who presented to the Emergency Department chief complaint of dizziness and nausea vomiting. On the differential diagnose includes but limited to intracranial hemorrhage,ischemic stroke, posterior circulation stroke, hemorrhagic stroke, carcinoid mets to the brain, elec trolyteabnormality, UTI. Once workup is obtained and reviewed he will be reevaluated. Tetanus shot will be updated Patient is not a tenecteplase candidate as his last known well was midnight. Patient CBC was significant leukocytosis of 15,000, hemoglobin 15.8, platelet count was noted be normal at 213. Patient INR normal at 1, PT of 13.2. Patientsodium normal at 142, potassium was 4.6, creatinine was elevated 1.64 he has underlying chronic kidney disease. Patient's AST and ALT were 28 and 19 respectively. Patient's troponin was noted be 60 with a delta troponin obtainedat 56. Patient's EKG reviewed showed bradycardia with a rate of 57 beats per minutes. Patient's lipase was elevatedat 23. Patient's urinalysis reviewed showed no evidence of infection. Patient's chest x-ray reviewed by myself and by radiology which showed no acute findings. Patient CT head and brain without contrast showed small vessel ischemic/degenerative changes no acute intracranialhemorrhage midline shift or mass effect. Generalized brain atrophy. Patient's CT ab pelvis with IV contrast showed nonspecific lobulated isodense lesion in the pelvis measuring up to 3.4 centimeters this could be enlarged lymp h node neoplastic cannot be excluded. Mild esophageal hiatal hernia. Fecal retention in the colon consistent with constipation colonic diverticulosis without Diverticulitis. Discussed case with fraud manager Dr. Garcia and states that he does not believe that this is cardiacin nature. Patient was given 325 mg aspirin. Discussed case with neurologist Dr. Johnson who reviewed the images and states that the patient to beadmitted to the hospital for further evaluation management of his dizziness and difficulty walking. Will discuss case with hospitalist for admission. Spoke with hospitalist Dr. Falcon who accept patient for admission. Notified thepatient and significant other bedside they are agreeable to plan all question concerns answered. Lab Data Labs: Laboratory Results - last 24 hr 09/20/24 09/20/24 09/20/24 14:10 14:54 16:00 WBC 15.2 H RBC 4.99 Hgb 15.8 Hct 47.0 MCV 94.2 H MCH 31.7 MCHC 33.6 RDW Std Deviation 46.4 H RDW Coeff of Gretel 13.3 Plt Count 213 MPV 8.9 Immature Gran % (Auto) 0.500 Neut % (Auto) 92.9 H Lymph % (Auto) 3.0 L [place] % (Auto) 3.2 Eos % (Auto) 0.1 Baso % (Auto) 0.3 Absolute Neuts (auto) 14.1 H Absolute Lymphs (auto) 0.45 L Nucleated RBC % 0 PT 13.2 INR 1.0 APTT 27.0 Sodium 142 Potassium 4.6 Chloride 106 Carbon Dioxide 23.3 Anion Gap 12 BUN 22 H Creatinine 1.64 H Estim Creat Clear Calc 44.22 L Est GFR (MDRD) Non-Af 42 L BUN/Creatinine Ratio 13.6 Glucose 112 H Calcium 8.9 Total Bilirubin 0.47 AST 28 ALT 19 Alkaline Phosphatase 103 Troponin T High Sens 60 H* Troponin T Hi Sens 2 Hr Total Protein 7.4 Albumin 4.5 Globulin 2.9 Albumin/Globulin Ratio 1.6 Lipase 23 Urine Color Straw Urine Clarity Clear Urine pH 6.0 Ur Specific [place] 1.015 Urine Protein 30 H Urine Glucose (UA) Normal Urine Ketones Negative Urine Occult Blood 25 H Urine Nitrite Negative Urine Bilirubin Negative Urine Urobilinogen Normal Ur Leukocyte Esterase Negative Urine RBC 0 SEEN Urine WBC 0 SEEN Ur Squamous Epith Cells 0 SEEN Calcium Oxalate Crystal RARE Urine Bacteria 0 SEEN Fine Granular Casts 0-5 SEEN Urine Mucus 0 SEEN POC Glucose 96 09/20/24 16:10 WBC RBC Hgb Hct MCV MCH MCHC RDW Std Deviation RDW Coeff of Gretel Plt Count MPV Immature Gran % (Auto) Neut % (Auto) Lymph % (Auto) [place] % (Auto) Eos % (Auto) Baso % (Auto) Absolute Neuts (auto) Absolute Lymphs (auto) Nucleated RBC % PT INR APTT Sodium Potassium Chloride Carbon Dioxide Anion Gap BUN Creatinine Estim Creat Clear Calc Est GFR (MDRD) Non-Af BUN/Creatinine Ratio Glucose Calcium Total Bilirubin AST ALT Alkaline Phosphatase Troponin T High Sens Troponin T Hi Sens 2 Hr 56 H* Total Protein Albumin Globulin Albumin/Globulin Ratio Lipase Urine Color Urine Clarity Urine pH Ur Specific [place] Urine Protein Urine Glucose (UA) Urine Ketones Urine Occult Blood Urine Nitrite Urine Bilirubin Urine Urobilinogen Ur Leukocyte Esterase Urine RBC Urine WBC Ur Squamous Epith Cells Calcium Oxalate Crystal Urine Bacteria Fine Granular Casts Urine Mucus POC Glucose Radiography Diagnostic Testing: Clinical Impression(s) from Imaging Studies Abdomen/Pelvis CT 09/20/24 14:15 IMPRESSION: 1. Nonspecific lobulated isodense lesion in the pelvis measuring up to 3.4 cm. This could be enlarged lymph node. Neoplastic can not be excluded. Clinical correlation is recommended. 2. Mild esophageal hiatal hernia. 3. Fecal retention in the colon consistent with constipation. 4. Colonic diverticulosis without acute diverticulitis. Reading Location: [facility] Brain CT 09/20/24 14:15 IMPRESSION: 1. Small vessel ischemic/degenerative changes. 2. No acute intracranial hemorrhage, midline shift or mass effect. If symptoms persist, further evaluation with MRI is recommended. 3. Generalized brain atrophy. Reading Location: [facility] Head/Neck CTA 09/20/24 14:16 IMPRESSION: Mild scattered atherosclerotic calcification of the anterior and posterior intracranial and extracranial circulation without hemodynamically significant stenosis. Reading Location: [facility] Chest X-Ray 09/20/24 16:30 IMPRESSION: NO ACUTE FINDINGS. Reading Location: [facility] Discharge Plan Dx/Rx/DC Orders Clinical Impression: Dizziness, Nausea & vomiting Disposition Disposition: Acute Care Hospital [facility] Discharge Date/Time: 09/20/24 18:38 What to do if you have Problems For any increased pain, shortness of breath, bleeding, nausea or vomiting, chestpain, or any unexpected problems, contact your Primary Care Provider. Call [facility] ([phone]) or report tothe closest Emergency Room. Call 911 if necessary. 09/20/24 1839 Cosigner Signature (if applicable): CC: [facility] ~ Signed [facility]05-18-2025 History and physical note [facility] Medical Records Department [address] [place] [address] H&P Exam - Hospitalist 09/20/24 1807 MR#: [id number] Acct: [id number] Name: ITZEL GOMEZ Rep #:[id number] : 1945 79 From: Linda Falcon MD PCP: [facility] Status:ADM KESHAV Location: [place] [id number] HPI - General General Date of Admission: 09/20/24 Date of Service: 09/20/24 Chief Complaint: Falls, LH/Dizziness, N/V. 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 He also reports sinceonset a generalized headache on the top of his head described as pressure-like sensation rated 4 out of 10 in severity with no light or sound sensitivity. He notes that currently seated in the ED his nausea and emesis are completely abated but when he attempts to move at all and get up he does not know which way is up or down and has onset of nausea with bouts of emesis. In the ED NIHSS assessment 0. Workup in the ED included T97.6, heart rate 57, BP 191/93, respiratory rate 14, 96% on room air, CBC with WBC 15.2, hemoglobin 15.8, platelet 213 with left shift and lymphopenia, CBC with WBC 15.2, hemoglobin 15.8, platelet 213 with left shift and lymphopenia, unremarkable coags, CMP with BUN/2022/1.64, GFR 42, glucose 112, hepatic profile not marked appearing, troponin 60 with repeat deltatroponin 56, CT head with small vessel ischemic/degenerative changes with no acute intracranial findings with generalized brain atrophy, CTA head and neck with mild scattered atherosclerotic calcifications of the anterior and posteriorintracranial extracranial circulation without any hemodynamically significant stenosis, CT abdomen and pelvis with IV contrast nonspecific lobulated isodense lesions in the pelvis measuring up to 3.4 cm likely consistent with his metastatic carcinoid tumors, mild esophageal hiatal hernia, some fecal retentionin the colon consistent with constipation, colonic diverticulosis without acute diverticulitis, chest x-ray with no acute cardiopulmonary findings, EKG with sinus bradycardia with no acute evidence of. In the ED patient ministered 2 L normal saline, Zofran 4 mg IV x 1, tetanus update and full-strength aspirin therapy. ED discussed case also with on-call neurologist with stroke alert who recommended continued neurological evaluation to be cautious. [facility] Medical History Bilateral pneumonia History of COVID-19 Anxiety and depression Cancer Former smoker Hypertension Stroke/cerebrovascular accident Multiple metastatic carcinoid tumors Home Medications ?Medication ?Instructions ?Recorded ?Last Taken ?Type amlodipine 10 mg tablet 10 mg PO DAILY 90 days #90 t abs 09/20/20 09/20/24 Rx loratadine 10 mg tablet 10 mg PO DAILY ALLERGIES 09/20/21 History aspirin 81 mg tablet 81 mg PO DAILY 09/20/2409/03 History colestipol 1 gram tablet 1 g PO BID 09/20/24 09/20/24 History escitalopram oxalate 10 mg tablet 10 mg PO DAILY 09/2009/20/24 History levothyroxine 25 mcg tablet 25 mcg PO DAILY 09/20/24 0 09/19/24 History (Levo-T) loperamide 2 mg tablet (Diamode) 4 mg PO BID 09/20/24 09/20/24 History octreotide acetate 30 mg IM Q28D 09/20/24 Unkno wn History oxycodone-acetaminophen 5 mg-325 1 tab PO Q6H PRN pain 09/20/24 09/20/24 History mg tablet potassium chloride 20 mEq 20 meq PO DAILY 09/20/24 History tablet,extended release telotristat ethyl 250 mg tablet 250 mg PO TID 09/20/24 09/20/24 History (Xermelo) Allergy/AdvReac Type Severity Reaction Status Date / Time amoxicillin Allergy Rash Verified 09/20/24 13:53 codeine AdvReac Nausea Verified 09/20/24 13:53 Family History Mother Heart disease Myocardial infarction CAD (coronary artery disease) Father COPD (chronic obstructive pulmonary disease) Surgical History H/O resection of small bowel S/P colectomy History of appendectomy History of cholecystectomy Social History household members: spouse Smoking Status: Never smoker how long ago did patient quit smoking: Patient smoked in the only and quit remotely. alcohol intake: never substance use type: does not use ROS ROS Narrative Admission Review of Systems: CONSTITUTIONAL: No weight loss, fever, chills, + weakness or fatigue. HEENT: + Lightheadedness, dizziness, headache. Eyes: No visual loss, blurred vision, double vision or yellow sclerae. Ears, Nose, Throat: No hearing loss, sneezing, congestion, runny nose or sore throat. SKIN: No rash or itching, lesions, wounds. CARDIOVASCULAR: + Lightheadedness, dizziness. No chest pain, chest pressure or chest discomfort, palpitations, edema, orthopnea, syncopal events. RESPIRATORY: No marked dyspnea, cough, marked sputum production, wheezing, hemoptysis. GASTROINTESTINAL: + anorexia, chronic abdominal pain, chronic loose stools, bouts of nausea and emesis. No melena, BRBPR. GENITOURINARY: No dysuria, frequency, urgency or retention. NEUROLOGICAL: + Lightheadedness, dizziness, falls, headache. No paralysis, ataxia, numbness or tingling in the extremities, focal weakness, change in bowelor bladder control, seizure. MUSCULOSKELETAL: + muscle, back pain, joint pain or stiffness. HEMATOLOGIC: + anemia, easy bleeding/bruising. LYMPHATICS: No enlarged nodes. No history of splenectomy. PSYCHIATRIC: + history of depression and anxiety/mood disorder. ENDOCRINOLOGIC: No reports of sweating, cold or heat intolerance. No polyuria orpolydipsia. ALLERGIES: + History of allergic rhinitis. Vital Signs Vital Signs Vital Signs: 09/20/24 13:54 09/20/24 14:15 09/20/24 14:39 Temperature 97.6 F L Temperature Source Oral Pulse Rate 57 L 61 Respiratory Rate 14 16 Blood Pressure 191/93 H 174/77 H Blood Pressure Mean 125 109 Pulse Ox 96 96 96 Oxygen Delivery Method Room Air Room Air Room Air 09/20/24 14:45 09/20/24 15:15 09/20/24 15:58 Temperature Temperature Source Pulse Rate 58 L 58 L 54 L Respiratory Rate 16 16 16 Blood Pressure 178/80 H 162/84 H 162/86 H Blood Pressure Mean 112 110 111 Pulse Ox 96 96 95 Oxygen Delivery Method Room Air Room Air Room Air 09/20/24 17:12 Temperature Temperature Source Pulse Rate 56 L Respiratory Rate 16 Blood Pressure 164/78 H Blood Pressure Mean 106 Pulse Ox 95 Oxygen Delivery Method Room Air Weight Weight: 215 lb 2.738 oz Body Mass Index (BMI) 29.2 Physical Exam Narrative Physical Examination: General: Awake, alert, oriented x 3 and cooperative, seated upright in the ED bed, fatigued, using a right sided hearing aid. Skin: Normal color, normal turgor, no icterus, no cyanosis Except occasional very stage ecchymoses,abrasions. HEENT: AT/NC, EOMI, PERRLA, mildly dry MM, endentulous, no carotid bruits or JVDnoted. Lungs: Mildly diminished, greater bases, appropriate effort, no rales, ronchi orwheezing. Heart: Bradycardic with regular rhythm; no gallop, rub audible. Abdomen: Soft, NTTP, ND, mildly hyperactive BS, no markedly appreciated HSM. Extremities: No cyanosis, clubbing, or edema. Neurological: Patient awake, alert, oriented as noted, cognitive function intact; pupils equally reactive to light and accommodation, cranial nerves grossnormal, moving all 4 extremities, no focal deficits, finger-nose and [id number] appropriate, equivocal Babinski, sensation intact. Psychiatric: Affect appears fatigued, no acute evidence of depressive or anxietyfeelings. Results Lab / Micro Data 09/20/24 14:10 09/20/24 14:10 Labs: Laboratory Results - last 24 hr 09/20/24 14:10: WBC 15.2 H, RBC 4.99, Hgb 15.8, Hct 47.0, MCV 94.2 H, MCH 31.7, MCHC 33.6, RDW Std Deviation 46.4 H, RDW Coeff of Gretel 13.3, Plt Count 213, MPV 8.9, Immature Gran % (Auto) 0.500, Neut % (Auto) 92.9 H, Lymph % (Auto) 3.0 L, [place] % (Auto) 3.2, Eos % (Auto) 0.1, Baso % (Auto) 0.3, Absolute Neuts (auto) 14.1 H, Absolute Lymphs (auto) 0.45 L, Nucleated RBC % 0, PT 13.2, INR 1.0, APTT27.0, Sodium 142, Potassium 4.6, Chloride 106, Carbon Dioxide 23.3, Anion Gap 12, BUN 22 H, Creatinine 1.64 H, Estim Creat Clear Calc 44.22 L, Est GFR (MDRD) Non-Af 42 L, BUN/Creatinine Ratio 13.6, Glucose 112 H, Calcium 8.9, Total Bilirubin 0.47, AST 28, ALT 19, Alkaline Phosphatase 103, Troponin T High Sens 60 H*, Total Protein 7.4, Albumin 4.5, Globulin 2.9, Albumin/Globulin Ratio 1.6,Lipase 23 09/20/24 14:54: POC Glucose 96 09/20/24 16:00: Urine Color Straw, Urine Clarity Clear, Urine pH 6.0, Ur Specific [place] 1.015, Urine Protein 30 H, Urine Glucose (UA) Normal, Urine Ketones Negative, Urine Occult Blood 25 H, Urine Nitrite Negative, Urine Bilirubin Negative, Urine Urobilinogen Normal, Ur Leukocyte Esterase Negative, Urine RBC 0 SEEN, Urine WBC 0 SEEN, Ur Squamous Epith Cells 0 SEEN, Calcium Oxalate Crystal RARE,Urine Bacteria 0 SEEN, Fine Granular Casts 0-5 SEEN, UrineMucus 0 SEEN 09/20/24 16:10: Troponin T Hi Sens 2 Hr 56 H* Imaging Radiology Impression Abdomen/Pelvis CT 09/20/24 14:15 IMPRESSION: 1. Nonspecific lobulated isodense lesion in the pelvis measuring up to 3.4 cm. This could be enlarged lymph node. Neoplastic can not be excluded. Clinical correlation is recommended. 2. Mild esophageal hiatal hernia. 3. Fecal retention in the colon consistent with constipation. 4. Colonic diverticulosis without acute diverticulitis. Reading Location: [facility] Brain CT 09/20/24 14:15 IMPRESSION: 1. Small vessel ischemic/degenerative changes. 2. No acute intracranial hemorrhage, midline shift or mass effect. If symptoms persist, further evaluation with MRI is recommended. 3. Generalized brain atrophy. Reading Location: [facility] Head/Neck CTA 09/20/24 14:16 IMPRESSION: Mild scattered atherosclerotic calcification of the anterior and posterior intracranial and extracranial circulation without hemodynamically significant stenosis. Reading Location[facility] Chest X-Ray 09/20/24 16:30 IMPRESSION: NO ACUTE FINDINGS. 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 #1. Intractable nausea, emesis, frequent falls with concern for vertigo with concern for possible posterior CVA with previous CVA history: Will admit to PCU,will obtain MRI Brain with and without contrast, ECHO, PT/OT/Speech/Nutrition evaluation per protocol. Will allow permissive HTN, maintain on asa, maintain on fall and aspiration precautions. Mag, TSH, FLP, HgbA1c requested. Maintain onfall and aspiration precautions. Continue neurology consultation. Given intractable nausea and emesis willinitially maintain on clears with IV PPI and once clinically improving will advance diet. Certainly presentation could be confounded also by metastatic carcinoid tumors as noted below. #2. Elevated cardiac enzyme of unclear significance: Admission troponin 60 withrepeat delta troponin 56, chest x-ray no acute cardiopulmonary finding, EKG withbradycardia with no acute evidence of ischemia, will maintain on a monitored bedto assure no acute myocardial infarction with serial cardiacenzymes and EKGs. Magnesium level requested. FLP in AM. ASA, NG. ED discussed case with on- call fraud manager Dr. Garcia, who recommended continued observation but no intervention or consultation needed at this time and felt it was likely noncardiac in nature. #3. 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 If intractable nausea and emesis are not abating there is no obvious neurological finding for the reason for the symptoms may require GI involvement given underlying cancer history. Continue patient home Xermelo regimen. Will also initiate patient octreotide 30 mg IM injection as it appears he was due 09/19/2024 and was not injected. #4. Chronic Kidney Disease Stage III, unclear subtype. GFR trending: AdmissionBUN/Cr 22/1.64, GFR 42, baseline renal function more recently primarily 1.8-2.1 but has vacillated, most recently previous 09/25/2022 creatinine 2.09, repeat BMPin AM. #5. Hypertension: Will maintain permissive hypertension given presentation withurine agents per stroke protocol. #6. Allergic rhinitis: Will continue patient home fluticasone and loratadine home regimen. #7. Mood disorder/anxiety and depression: Will continue patient home aripiprazole regimen as well as escitalopram, encourage continued outpatient follow-up as previously arranged. #8. Former tobacco use: Encourage continued tobacco cessation. #9. Obesity: Weight loss and lifestyle changes encouraged. #10. DVT prophylaxis: Lovenox. #11. CODE status: Patient YAMILET is his and living will is currently in place. Discussed CODE status at length including difference between FULL code, DNR-CCA and DNR-CC status. Following discussions about the differences in these status, requested Full Code status. Advanced Care Planning Face to Face Time: 16minutes. Charges/Coding Visit Charges Inpatient E&M: 87449 Init Hosp L3 Procedures Hospitalists Procedures: 46366 Advncd Care Plan 30 Min 09/20/24 1833 Cosigner Signature (if applicable): CC: Dr. Linda Falcon MD; [facility]~ Signed [facility]05-18-2025 Radiology Diagnostic study note [facility] Imaging Services [address] [place], [place] [id number] Chest PA and Lateral MR#: [id number] Acct: [id number] Name: ITZEL GOMEZ Rep #: [id number] : 1945 M 79 From: Tyra Dickens MD PCP: [facility] Status: REG ER Study:Chest PA and Lateral Date of Exam: 09/20/24 Exam# [id number] Ordering Dr: Siena Silva DO PROCEDURE: CHEST PA AND LATERAL 09/20/2024 REASON FOR EXAM: DIZZINESS TECHNIQUE: Frontal and lateral views of the chest. COMPARISON: CT chest 09/21/2021 FINDINGS: Hardware: None Heart: The heart size is normal. Mediastinum: The mediastinal contour is unremarkable. Lungs: Mild bibasilar atelectasis. No focal consolidation. No pneumothorax. No pleural effusion. Bones: Degenerative changes are identified within the thoracic spine. RAD/Chest PA and Lateral IMPRESSION: NO ACUTE FINDINGS. [facility] CC: Dr. René Silva DO; [facility] ~ Bathing Suit Maker: Signed [facility]05-18-2025 Radiology Diagnostic study note [facility] Imaging Services [address] [place] [id number] STROKE CTA Head AND Neck W/Con MR#: [id number] Acct: [id number] Name: ITZEL GOMEZ Rep #: [id number] : 1945 M 79 From: Tyra Dickens MD PCP: [facility] Status: REG ER Study:STROKE CTA Head AND Neck W/Con Date of Exam: 09/20/24 Exam# [id number] Ordering Dr: Siena Silva DO PROCEDURE: STROKE CTA HEAD AND NECK W/CON 09/20/2024 REASON FOR EXAM: NEURO DEFICIT, ACUTE, STROKE SUSPECTED TECHNIQUE: CTA imaging of the head and neck from the aortic arch to the skull vertex with out contrast and with intravenous contrast. Multiplanar and multisequence images were obtained. CONTRAST: Omnipaque 350 VOLUME: 100 mL Not Provided Gauge IV One or more dose reduction techniques were used (e.g., Automated exposure control, adjustment of the mA and/or kV according to patient size, use of iterative reconstruction technique). COMPARISON: None FINDINGS: Aortic Arch: Normal size and branching pattern. No significant atherosclerotic plaque. Brachiocephalic and Subclavians: Mild atherosclerotic plaque without significantstenosis. RIGHT Carotid: Right CCA: Mild calcified and soft plaque. Right ICA: Unremarkable. Maximum stenosis (NASCET): 0 % Right ECA: Unremarkable. LEFT Carotid: Left CCA: Mild calcified and soft plaque. Left ICA: Unremarkable. Maximum stenosis (NASCET): 0 % Left ECA: Unremarkable. Vertebrals: Codominant. Arise from the subclavians. Both vertebrals form the basilar. RIGHT Vertebral: Unremarkable. LEFT Vertebral: Unremarkable. Anatomy: Augustine of Joaquin anatomy is normal. Aneurysm or avm: No intracranial aneurysms or large vascular malformations are identified. Anterior cerebral arteries: Unremarkable: Middle cerebral arteries: Mild atherosclerotic calcification of the bilateral carotid siphons without hemodynamically significant stenosis. The bilateral MCAs are otherwise within normal limits. Basilar artery: Unremarkable. Posterior cerebral arteries: Unremarkable. Other major branches of the posterior circulation: Unremarkable. Major venous structures: Unremarkable. Other findings: Neck: No lymphadenopathy. Lungs: Lung apices are clear. Bones: CT/STROKE CTA Head AND Neck W/Con IMPRESSION: Mild scattered atherosclerotic calcification of the anterior and posterior intracranial and extracranial circulation without hemodynamically significant stenosis. [facility] CC: Dr. René Silva DO; [facility] ~ Bathing Suit Maker: Signed [facility]05-18-2025 Radiology Diagnostic study note [facility] Imaging Services [address] [place] [address] Abdomen/Pelvis W IV Cont ONLY MR#: [id number] Acct: [id number] Name: ITZEL GOMEZ Rep #: [id number] : 1945 M 79 From: Velma Hagan MD PCP: [facility] Status: REG ER Study:Abdomen/Pelvis W IV Cont ONLY Date of E xam: 09/20/24 Exam# [id number] Ordering Dr: Siena Silva DO EXAM: CT Abdomen and Pelvis With Intravenous Contrast CLINICAL INDICATION: N/V TECHNIQUE: Axial computed tomography images of the abdomen and pelvis with intravenous contrast. This CT exam was performed using one or more of the following dose reduction techniques: automated exposure control, adjustment of the mA and/or kV according to patient size, and/or use of iterative reconstruction technique. COMPARISON: No relevant prior studies available. FINDINGS: LUNG BASES: Unremarkable. No mass. No consolidation. MEDIASTINUM: Mild esophageal hiatal hernia. ABDOMEN: LIVER: Fatty infiltration of the liver. GALLBLADDER AND BILE DUCTS: Unremarkable. No calcified stones. No ductal dilation. PANCREAS: Unremarkable. No mass. No ductal dilation. SPLEEN: Unremarkable. No splenomegaly. ADRENALS: Probable right adrenal adenoma. KIDNEYS AND URETERS: Right renal cysts. No hydronephrosis. STOMACH AND BOWEL: Fecal retention in the colon consistent with constipation. Colonic diverticulosis without acute diverticulitis. No obstruction. PELVIS: APPENDIX: No findings to suggest acute appendicitis. BLADDER: Unremarkable. No mass. REPRODUCTIVE: Unremarkable as visualized. ABDOMEN and PELVIS: INTRAPERITONEAL SPACE: Unremarkable. No free air. No significant fluid collection. BONES/JOINTS: No acute fracture. No dislocation. SOFT TISSUES: Unremarkable. VASCULATURE: Scattered calcified atherosclerotic disease of aorta. No abdominal aortic aneurysm. LYMPH NODES: Nonspecific lobulated isodense lesion in the pelvis measuring up to 3.4 cm. This couldbe enlarged lymph node. Neoplastic can not be excluded. Clinical correlation is recommended. CT/Abdomen/Pelvis W IV Cont ONLY IMPRESSION: 1. Nonspecific lobulated isodense lesion in the pelvis measuring up to 3.4 cm. This could be enlarged lymph node. Neoplastic can not be excluded. Clinical correlation is recommended. 2. Mild esophageal hiatal hernia. 3. Fecal retention in the colon consistent with constipation. 4. Colonic diverticulosis without acute diverticulitis. Reading Location: [facility] CC: Dr. René Silva DO; [facility] ~ Bathing Suit Maker: Signed [facility]05-18-2025 Radiology Diagnostic study note [facility] Imaging Services [address] [place], [place] [id number] STROKE Brain/Head without Cont MR#: [id number] Acct: [id number] Name: ITZEL GOMEZ Rep #: [id number] : 1945 M 79 From: Velma Hagan MD PCP: [facility] Status: [facility] ER Study:STROKE Brain/Head without Cont Date of Exam: 09/20/24 Exam# [id number] Ordering Dr: Siena Silva DO EXAM: CT Head Without Intravenous Contrast CLINICAL INDICATION: NEURO DEFICIT, ACUTE, STROKE SUSPECTED TECHNIQUE: Axial computed tomography images of the head/brain without intravenous contrast. This CTexam was performed using one or more of the following dose reduction techniques: automated exposure control, adjustment of the mA and/or kV according to patient size, and/or use of iterative reconstruction technique. COMPARISON: No relevant prior studies available. FINDINGS: BRAIN AND EXTRA-AXIAL SPACES: Areas of decreased attenuation in the deep cerebral white matter are consistent with small vessel ischemic/degenerative changes. No acute intracranial hemorrhage, midline shift or mass effect. If symptoms persist, further evaluation with MRI is recommended. The cerebral and cerebellar sulci are prominent consistent withbrain atrophy. BONES/JOINTS: Unremarkable. No acute fracture. SOFT TISSUES: Unremarkable. SINUSES: Unremarkable as visualized. No acute sinusitis. MASTOID AIR CELLS: Unremarkable as visualized. No mastoid effusion. CT/STROKE Brain/Head without Cont IMPRESSION: 1. Small vessel ischemic/degenerative changes. 2. No acute intracranial hemorrhage, midline shift or mass effect. If symptoms persist, further evaluation with MRI is recommended. 3. Generalized brain atrophy. Reading Location: [facility] CC: Dr. René Silva, ; [facility] ~ Bathing Suit Maker: Signed [facility]07-13-2023 NoteHNO ID: [id number] Author: Arianna Montiel PA-C Service: ? 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 Dr. Villavicencio performed lower endoscopy on 11/08/22. The patient was found to have diverticulosis, normal appearing anastomosis, non-bleeding hemorrhoids. Pathology demonstrated: FINAL DIAGNOSIS A. Colon, biopsy: - Colonic mucosa with no diagnostic abnormality. B. Ileum, biopsy: - Small intestinal mucosa with no diagnostic abnormality. The patient notes no complaints since the procedure. VITALS: There were no vitals taken for this visit. General: patient is alert, cooperative, pleasant and in no acute distress On examination, the abdomen is benign. Assessment IMPRESSION: long-term history of loose stools, history of ileal resection and right hemicolectomy PLAN: The operative findings and pathology report were reviewed with the patient, and the patient has had the opportunity to ask questions and have questions answered. If the patient notes any problems or changes in bowel function, the patient should contact me immediately. Otherwise I recommend patient consider a 5 year repeat colonoscopy based on his history of ileal tumor. -Recommend daily fiber supplement (such as Citrucel, benefiber, metamucil etc) to help bulk up stools. Recommend powder formulation mixed into liquid, rather than the tablets or chews -If symptoms not improving on fiber after 1 month, consider trial of cholestyramine resin Patient verbalized understanding of all above and agreed with the plan Diagnoses: (R19.5) Loose stools (primary encounter diagnosis) (Z90.49) Status post partial resection of colon I spent a total of 24 minutes on the date of the service which included preparing to see the patient, [id number] patient care, completing clinical documentation, obtaining and/or reviewing separately obtained history, counseling and educating the patient/family/caregiver, communicating with other HCPs (not separately reported), independently interpreting results (not separately reported), and communicating results to the patient/family/caregiver. [facility] Instructions* Patient Instructions* Arianna Montiel PA-C - 11/15/2022 10:57 AM EDT -Recommend daily fiber supplement (such as Citrucel, benefiber, metamucil etc) to help bulk up stools. Recommend powder formulation mixed into liquid, rather than the tablets or chews -If symptoms not improving on fiber after 1 month, consider trial of cholestyramine resin The following instructions are important for you related to your office visit today with the [facility]. INSTRUCTIONS FOLLOWING A NORMAL COLONOSCOPY I discussed with you the findings of your colonoscopy. No worrisome abnormalities were noted, and random biopsies were negative for microscopic colitis. Recommend considering a repeat colonoscopy in 5 years based on your history of ileal tumor. If you note bleeding, change in bowel habits, or other suspicious colon related symptoms before that time, those symptoms should be evaluated as necessary. If you note any additional difficulties, questions, or concerns, you should contact our office immediately @ [phone] and ask to be transferred to the General Surgery department. 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 Dr. Villavicencio performed lower endoscopy on 11/08/22. Thepatient was found to have diverticulosis, normal appearing anastomosis, non-bleeding hemorrhoids. Pa thradha demonstrated: FINAL DIAGNOSIS A. Colon, biopsy: - Colonic mucosa with no diagnostic abnormality. B. Ileum, biopsy: - Small intestinal mucosa with no diagnostic abnormality. The patient notes no complaints since the procedure. VITALS: There were no vitals taken for this visit. General: patient is alert, cooperative, pleasant and in no acute distress On examination, the abdomen is benign. Assessment IMPRESSION: long-term history of loose stools, history of ileal resection and right hemicolectomy PLAN: The operative findings and pathology report were reviewed with the patient, and the patient has hadthe opportunity to ask questions and have questions answered. If the patient notes any problems or changes in bowel function, the patient should contact me immediately. Otherwise I recommend patient consider a 5 year repeat colonoscopy based on his history of ileal tumor. -Recommend daily fiber supplement (such as Citrucel, benefiber, metamucil etc) to help bulk up stools. Recommend powder formulation mixed into liquid, rather than the tablets or chews -If symptoms not improving on fiber after 1 month, consider trial of cholestyramine resin Patient verbalized understanding of all above and agreed with the plan Diagnoses: (R19.5) Loose stools (primary encounter diagnosis) (Z90.49) Status post partial resection of colon I spent a total of 24 minutes on the date of the service which included preparing to see the patient, [id number] patient care, completing clinical documentation, obtaining and/or reviewing separately obtained history, counseling and educating the patient/family/caregiver, communicating with other HCPs (not separately reported), independently interpreting results (not separately reported), and communicating results to the patient/family/caregiver. Arianna Montiel PA-C documented in [facility]Ad[facility]-2023 NoteHNO ID: [id number] Author: Luzmaria Sidhu RN Service: ? Author Type: Registered Nurse Type: Nursing Progress Note Filed: 11/08/2022 10:05 AM Note Text: Ambulated to restroom with assist of one, gait steady with assistance.[facility]07-06-2023 Nurse Note* Luzmaria Sidhu RN - 11/08/2022 10:02 AM EDT Ambulated to restroom with assist of one, gait steady with assistance. * Luzmaria Sidhu RN - 11/08/2022 9:55 AM EDT Patient awoke easily when spoken to, was offered a drink and snack, he declines, just wants to continue to sleep, Denies pain or nausea. * Luzmaria Sidhu RN - 11/08/2022 9:28 AM EDT Arrived in phase II via cart left lateral position, eyes closed but open to verbal stimuli, oriented to event and self, skin warm and dry, respirations regular and unlabored, abdomen soft and non distended. Resting comfortably on left side. documented in this encounterAd[facility]07-06-2023 History and physical note * Troy Villavicencio MD - 11/08/2022 9:15 AM EDT Images from the original note were not included. HISTORY AND PHYSICAL Itzel Gomez 1945 REFERRING PHYSICIAN: [facility] CHIEF COMPLAINT: Consult (colonoscopy) HPI: The patient is a 77 year old male referred for endoscopy. Patient presented today [id number] was under the impression he was having his colonoscopy today. Itzel notes a history of loose stools for some time, which have been worsening over the last couple months. Describes stools as pudding-like in consistency. Occasionally some darker-appealing stools but no obvious blood. [facility] Xermelo previously which was helping, but no longer notes improvement with this. Denies nausea, vomiting, upper abdominal pain or changes in appetite. Patient is s/p bowel resection with right hemicolectomy for an ileal cancer, states this was done around 5099-8056. Records show carcinoid tumor with metastases. Itzel has not had recent endoscopy. Denies chest pain, shortness of breath or recent hospitalizations. Denies problems with sedation inthe past. PAST MEDICAL HISTORY PAST MEDICAL HISTORY Diagnosis Date Balanitis 2017 Benign paroxysmal positional vertigo Carcinoid tumor 2016 Chronic depression 2017 DDD (degenerative disc disease), cervical Dysthymia 2019 Essential hypertension Essential hypertension Gall stones Hematuria 2019 Hypercholesteremia 2007 Optic neuropathy Rheumatic fever as child Secondary malignant neoplasm of liver (HCC) 2016 Sleep apnea Solitary pulmonary nodule present on computed tomography of lung 2008 Stroke (HCC) PAST SURGICAL HISTORY PAST SURGICAL HISTORY Procedure Laterality Date CHOLECYSTECTOMY 05/06/1990 COLON SURGERY HX 05/06/2008 appendix removed, cancer COLONOSCOPY SCREENING 2016 HERNIA REPAIR W/MESH 05/06/2009 TONSILLECTOMY HX age 4 CURRENT MEDICATIONS Current Outpatient Medications Medication Sig ARIPiprazole (ABILIFY) 5 mg tablet Take 5 mg by mouth once daily. colestipol (COLESTID) 1 gram tablet Take 1 g by mouth twice daily. levothyroxine (SYNTHROID) 25 mcg tablet Take 25 mcg by mouth daily before breakfast. container,empty (NASAL SPRAY BOTTLE MISC) loratadine 10 mg cap Take 10 mg by mouth once daily. escitalopram oxalate (LEXAPRO) 10 mg tablet Take 10 mg by mouth once daily. doxazosin (CARDURA) 4 mg tablet Take 4 mg by mouth daily at bedtime. chlorthalidone (HYGROTON) 25 mg tablet Take 25 mg by mouth once daily. amLODIPine (NORVASC) 5 mg tablet Take 5 mg by mouth once daily. telotristat ethyl 250 mg tab Take 250 mg by mouth three times daily. oxyCODONE immediate release 5 mg immediate release tablet Take 5 mg by mouth every 4 hours as needed. cholecalciferol (VITAMIN D3) 1,000 unit tab tablet Take 1,000 Units by mouth three times daily. FE/VIT B COMP/B12/LIVER/PROC ([id number]-[id number] INTRAMUSC.) Inject intramuscularly. 1000 mcg monthly injection at home. OCTREOTIDE ACETATE (SANDOSTATIN INJECTION) by INJECTION(UNSPECIFIED PARENTERAL ROUTES) route. 20mg alternating with 30 mg month at home. oxyCODONE ER (OXYCONTIN) 20 mg 12 hr tablet Take 20 mg by mouth every 12 hours. (Patient not taking: Reported on 09/24/2022) No current facility-administered medications for this visit. ALLERGIES: Amoxicillin, Codeine, and Dilaudid [Hydromorphone (Bulk)] PERSONAL HISTORY: SOCIAL HISTORY Social History Tobacco Use Smoking status: Former Smokeless tobacco: Current Tobacco comments: Smoked pipe about 15 years Vaping Use Vaping Use: Never used Substance Use Topics Alcohol use: Yes Comment: rare beer Drug use: Never FAMILY HISTORY: FAMILY HISTORY FAMILY HISTORY Problem Relation Age of Onset Heart Mother MD Heart Father COPD Father REVIEW OF SYMPTOMS: The review of systems data was entered by the nurse and reviewed by nj Nursing Notes: Pamella Harmon LPN 09/24/2022 9:14 AM Signed REVIEW OF SYSTEMS: General: The patient notes fatigue, notes weight loss, denies weight gain, denies feeling hot, and denies feelings of cold. Eyes: The patient denies glaucoma, denies eye injury/surgery, wears glasses or contacts. Ear/Nose/Throat: The patient notes allergies, denies hayfever, denies ear infections, and denies bloody noses. Cardiovascular: The patient denies chest pain, denies heart disease, notes high blood pressure,denies cardiac stent, denies prior heart attack, denies irregular heart beat, denies high cholesterol, denies poor circulation, denies heart failure, other cardiac issues, denies claudication, denies coldfeet, denies peripheral arterial stent. Respiratory: The patient denies tuberculosis, denies pneumonia, denies frequent cough, denies pulmonary embolism, denies shortness of breath, and denies coughing up blood. Gastrointestinal: The patient denies difficulty swallowing, denies acid reflux, denies ulcers, denies vomiting, denies jaundice/hepatitis, denies gallbladder problems, denies black or tarry stools, denies hemorrhoids, denies bleeding from rectum, denies diverticulitis, denies constipation, notes diarrhea, denies loss of stool control, and denies hernias. Kidney/Bladder: The patient denies kidney stones, denies urine infections, and denies bloody urine. Skin: The patient denies a history of skin cancer, denies bleeding/changing moles, and denies a history of skin rash. Neurologic: The patient denies a history of epilepsy/convulsions, denies headaches, denies head/spinal injuries, and denies stroke/TIA. Psychiatric: The patient denies psychiatric medications, denies depression, and denies voices, denies substance abuse. Endocrine: The patient denies thyroid disorders, denies diabetes, and denies hormonal problems. Hematologic: The patient denies a history of bruising, denies bleeding, and denies anemia, denies blood clots. Infections: The patient denies a history of measles and mumps, notes rheumatic fever, and denies sexually transmitted diseases. Musculoskeletal: The patient notes back pain/injury, denies back problems, denies sciatica, denies knee/foot trouble, denies arthritis, or denies gout. When was patient's last Mammogram screening? N/A Last Colonoscopy: 2016 Pamella Harmon LPN I have confirmed and edited as necessary, the PFSH and ROS obtained by others. Arianna Montiel PA-C PHYSICAL EXAMINATION: General: The patient is 77 year old male, well nourished, well hydrated in no acute distress. The patient is oriented to time, place, and person. VITALS: Blood pressure 120/68, pulse 72, temperature 36.1 C (97 F), height 182.9 cm (6'), weight 77.1 kg (170 lb), SpO2 98 %. Body mass index is 23.06 kg/m . HEENT: Normal cephalic, ataumatic, pupils are equally round, sclera are anicteric, mucous membranesare moist, oropharynx is clear. Neck has no masses, asymmetry or lymphadenopathy. Respiratory: Clear to auscultation and percussion. Normal respiratory excursion and pattern. Cardiac: Examination is regular rate and rhythm. Normal S1/S2 Abdominal exam: Soft, nontender, with no palpable masses. No hepatosplenomegaly. No palpable hernias. Extremities: no clubbing, cyanosis or edema. No adenopathy. LABORATORY VALUES: As Noted RADIOLOGIC STUDIES: As Noted Assessment IMPRESSION: diarrhea, history of carcinoid tumor, s/p colon resection PLAN: I have reviewed my findings with the surgeon. Will plan for lower endoscopy with biopsies. Patient was also offered EGD but declined. Patient presented today [id number] was under the impression he was having his colonoscopy today. No surgeons in [facility] today and also patient does not have a truck driver helper with him. Spoke with Dr. Villavicencio who is willing to scope patient in [facility] tomorrow morning. Patient instructed to remain on clear liquids the rest of the day. We discussed the risks and benefits of the planned endoscopy. I have informed the patient that complications can occur including failure to complete the endoscopy and perforation. The patient had theopportunity to ask questions concerning the planned endoscopy. My staff has also explained the procedure to the patient in understandable terms and has given the patient printed material concerning the procedure. The patient freely consents to surgery. Diagnoses: (R19.7) Diarrhea, unspecified type (primary encounter diagnosis) (Z90.49) S/P colon resection (D3A.012) Carcinoid tumor of ileum, unspecified whether malignant Consultation requested by Bev Moore CNP for an opinion regarding bowel habits changes and concern for carcinoid syndrome. My final recommendations will be communicated back to the requesting physician by way of shared Medical record or letter to requesting physician via US mail. Arianna Montiel PA-C UPDATED HISTORY AND PHYSICAL EXAMINATION SERVICE DATE: 11/08/2022 SERVICE TIME: 8:23 AM PHYSICAL EXAM MUST BE COMPLETED ON ADMISSION The History and Physical (completed in the past 30 days) has been reviewed and the patient has beenexamined. The contents accurately reflect the patient's condition with the following additions or revisions since the H&P was completed. Examination indicates no changes. This H&P can be found in the attached. SIGNATURE: Troy Villavicencio III, MD PATIENT NAME: Itzel Gomez DATE: November 08, 2022 TIME: 8:23 AM [facility] NoteHNO ID: [id number] Author: Arianna Montiel PA-C Service: ? Author Type: Physician [employer] Type: Progress Notes Filed: 09/25/2022 6:48 AM Note Text: HISTORY AND PHYSICAL Itzel Gomez 1945 REFERRING PHYSICIAN: Juan Mt CHIEF COMPLAINT: Consult (colonoscopy) HPI: The patient is a 77 year old male referred for endoscopy. Patient presented today [id number] was under the impression he was having his colonoscopy today. Itzel notes a history of loose stools for some time, which have been worsening over the last couple months. Describes stools as pudding-like in consistency. Occasionally some darker-appealing stools but no obvious blood. [facility] Xermelo previously which was helping, but no longer notes improvement with this. Denies nausea, vomiting, upper abdominal pain or changes in appetite. Patient is s/p bowel resection with right hemicolectomy for an ileal cancer, states this was done around [id number]. Records show carcinoid tumor with metastases. Itzel has not had recent endoscopy. Denies chest pain, shortness of breath or recent hospitalizations. Denies problems with sedation in the past. PAST MEDICAL HISTORY Diagnosis Date Balanitis 2017 Benign paroxysmal positional vertigo Carcinoid tumor 2016 Chronic depression 2017 DDD (degenerative disc disease), cervical Dysthymia 2019 Essential hypertension Essential hypertension Gall stones Hematuria 2020 Hypercholesteremia 2007 Optic neuropathy Rheumatic fever as child Secondary malignant neoplasm of liver (HCC) 2016 Sleep apnea Solitary pulmonary nodule present on computed tomography of lung 2008 Stroke (HCC) PAST SURGICAL HISTORY Procedure Laterality Date CHOLECYSTECTOMY 05/06/1990 COLON SURGERY HX 05/06/2008 appendix removed, cancer COLONOSCOPY SCREENING 2016 HERNIA REPAIR W/MESH 05/06/2009 TONSILLECTOMY HX age 4 Current Outpatient Medications Medication Sig ARIPiprazole (ABILIFY) 5 mg tablet Take 5 mg by mouth once daily. colestipol (COLESTID) 1 gram tablet Take 1 g by mouth twice daily. levothyroxine (SYNTHROID) 25 mcg tablet Take 25 mcg by mouth daily before breakfast. container,empty (NASAL SPRAY BOTTLE MISC) loratadine 10 mg cap Take 10 mg by mouth once daily. escitalopram oxalate (LEXAPRO) 10 mg tablet Take 10 mg by mouth once daily. doxazosin (CARDURA) 4 mg tablet Take 4 mg by mouth daily at bedtime. chlorthalidone (HYGROTON) 25 mg tablet Take 25 mg by mouth once daily. amLODIPine (NORVASC) 5 mg tablet Take 5 mg by mouth once daily. telotristat ethyl 250 mg tab Take 250 mg by mouth three times daily. oxyCODONE immediate release 5 mg immediate release tablet Take 5 mg by mouth every 4 hours as needed. cholecalciferol (VITAMIN D3) 1,000 unit tab tablet Take 1,000 Units by mouth three times daily. FE/VIT B COMP/B12/LIVER/PROC ([id number] INTRAMUSC.) Inject intramuscularly. 1000 mcg monthly injection at home. OCTREOTIDE ACETATE (SANDOSTATIN INJECTION) by INJECTION(UNSPECIFIED PARENTERAL ROUTES) route. 20mg alternating with 30 mg month at home. oxyCODONE ER (OXYCONTIN) 20 mg 12 hr tablet Take 20 mg by mouth every 12 hours. (Patient not taking: Reported on 09/24/2022) No current facility-administered medications for this visit. ALLERGIES: Amoxicillin, Codeine, and Dilaudid [Hydromorphone (Bulk)] PERSONAL HISTORY: Social History Tobacco Use Smoking status: Former Smokeless tobacco: Current Tobacco comments: Smoked pipe about 15 years Vaping Use Vaping Use: Never used Substance Use Topics Alcohol use: Yes Comment: rare beer Drug use: Never FAMILY HISTORY: FAMILY HISTORY Problem Relation Age of Onset Heart Mother MD Heart Father COPD Father REVIEW OF SYMPTOMS: The review of systems data was entered by the nurse and reviewed by nj Nursing Notes: Pamella Harmon LPN 09/24/2022 9:14 AM Signed REVIEW OF SYSTEMS: General: The patient notes fatigue, notes weight loss, denies weight gain, denies feeling hot, and denies feelings of cold. Eyes: The patient denies glaucoma, denies eye injury/surgery, wears glasses or contacts. Ear/Nose/Throat: The patient notes allergies, denies hayfever, denies ear infections, and denies bloody noses. Cardiovascular: The patient denies chest pain, denies heart disease, notes high blood pressure,denies cardiac stent, denies prior heart attack, denies irregular heart beat, denies high cholesterol, denies poor circulation, denies heart failure, other cardiac issues, denies claudication, denies cold feet, denies peripheral arterial stent. Respiratory: The patient denies tuberculosis, denies pneumonia, denies frequent cough, denies pulmonary embolism, denies shortness of breath, and denies coughing up blood. Gastrointestinal: The patient denies difficulty swallowing, denies acid reflux, denies ulcers, denies vomiting, denies jaundice/hepatitis, denie (more content not included)...[facility] summary Author Rebecca Lima [facility] Note Date/Time September 23, 2024 5:47p m [facility] Medical Records Department [address] [place] [address] Discharge Summary 09/23/24 1656 MR#: [id number] Acct: [id number] Name: ITZEL GOMEZ Rep #:[id number] : 1945 79 From: Rebecca Lima DO PCP: [facility] Status:ADM IN Location: [facility] [id number] Providers Date of Admission: 09/21/24 Date of Discharge: 09/23/24 Primary Care Physician: [facility] Reason For Visit: ? TIA/CVA, ELEVATED TROP UNCLEAR SIGNIFICANCE Diagnosis Discharge Diagnosis (1) Cerebellar stroke: Status: Acute Code(s): I63.9 - Cerebral infarction, unspecified (2) Nausea & vomiting: Status: Acute Code(s): R11.2 - Nausea with vomiting, unspecified (3) Dizziness: Status: Acute Code(s): R42 - Dizziness and giddiness Medications at Discharge Home Medications amlodipine 10 mg tablet 10 mg PO DAILY Blood pressure 90 days #90 tabs 09/20/20 loratadine 10 mg tablet 10 mg PO DAILY ALLERGIES 09/21/21 aspirin 81 mg tablet 81 mg PO DAILY heart health 09/20/24 colestipol 1 gram tablet 1 g PO BID cholesterol 09/20/24 escitalopram oxalate 10 mg tablet 10 mg PO DAILY depression 09/20/24 levothyroxine 25 mcg tablet (Levo-T) 25 mcg PO DAILY thyroid 09/20/24 loperamide 2 mg tablet (Diamode) 4 mg PO BID diarrhea 09/20/24 octreotide acetate 30 mg IM Q28D 09/20/24 potassium chloride 20 mEq tablet,extended release 20 meq PO DAILY supplement 09/20/24 telotristat ethyl 250 mg tablet (Xermelo) 250 mg PO TID diarrhea 09/20/24 atorvastatin 40 mg tablet 40 mg PO QHS #0 tabs 09/23/24 enoxaparin 40 mg/0.4 mL subcutaneous syringe 40 mg (0.4 mL) subcut DAILY #0 mL 09/23/24 food supplemt, lactose-reduced 0.08 gram-1.5 kcal/mL oral liquid (Ensure Plus High Protein) 120 ml PO TIDCM #0 mL 09/23/24 oxycodone-acetaminophen 5 mg-325 mg tablet 1 tab PO TID 1 day #3 tabs 09/23/24 Hospital Course Procedures 2-D Echocardiogram, EKG and - (CT abdomen pelvis/CT brain/CTA head neck/chest x-ray/MRI brain) Summary of Care Provided Minutes Spent on Discharge: 41 Hospital Course: Mr. Gomez is a 79-year-old white male who presents emergency department [facility] on 09/20/2024 with a chief complaint of falls and dizziness aswell as nausea vomiting. Patient reported that he had some nausea and lightheadedness as well as dizziness that resulted in some emesis starting on the morning of presentation that resulted in a mechanical fall. This led to evaluation in the emergency department. Patient also reported generalized headache on the top of his head that felt like pressure. He had no nausea or vomiting at rest emergency department but tried to get up which caused more nausea and 1 bout of emesis. NIH was 0. Vital signs on presentation showed a temperature of 97.6, heart rate 57, blood pressure was 191/93 with a repeat of 162/84 and a pulse ox of 96% on room air. He had a mild leukocytosis on his CBCbut was otherwise unremarkable. Chemistry revealed elevated serum creatinine at1.64 but this is not far off his baseline serum creatinine. Initial troponin was 56. Delta troponin was 58. CT of the abdomen pelvis was performed and showed nonspecific lobulated isodense lesion in the pelvis that was 4 3.4 cm. Patient has a known history of metastatic carcinoid tumor in involving the boweland per discussion with his this is a known mass. He also had mild esophageal hiatal hernia with fecal retention in the colon consistent with constipation and colonic diverticulosis without diverticulitis. CT the brain shows small vessel changes but no acute abnormality. CTA of the head and neck showed no significant stenosis in bilateral internal carotid arteries and very mild scattered atherosclerotic calcifications in the anterior and posterior intracranial and extracranial circulation. Chest x-ray was negative for any acute findings. Patient was admitted with stroke protocol and placed on IV fluids due to nausea and vomiting. We added a scopolamine patch which significantly helped his nausea and vomiting. An MRI of the brain was pursued and showed an acute nonhemorrhagic infarct of the right cerebellum with mild to moderate nonspecific chronic white matter changes and mild generalized atrophy. No enhancing lesions were noted. Echocardiogram showed an EF of 60% with mild concentric LVH and stage I diastolic dysfunction. He was evaluated by neurologyand they recommended event monitor at discharge which was prescribed. On admission he was placed on aspirin and atorvastatin. His LDL was 91 and his hemoglobin A1c was 5.5. We did restart his antihypertensives on 09/22/2024 his blood pressures were somewhat labile and will need ongoing evaluation. He may need additional antihypertensives. He also was bradycardic especially at night but was asymptomatic through his stay in on the monitor appeared to be sinus bradycardia without any symptoms. Again event monitor was ordered after discharge and will be pursued. Initially thought the patient would be able to go home however with his dizziness he was fairly unsteady and agreeable to go toacute rehab. She was excepted to the acute rehab unit and able to be dischargedon 09/23/2024. Discharge diagnoses: Dizziness secondary to acute right cerebellar ischemic stroke Nausea and vomiting-resolved Constipation-resolved Elevated troponin secondary to demand ischemia Metastatic stage IV carcinoid tumor-follows at [facility] CKD stage II Hypothyroidism Essential hypertension Allergic rhinitis Mood disorder Anxiety Depression History of tobacco abuse Physical Exam Const alert, oriented x3, no apparent distress and average body habitus; Negative for healthy appearing or well nourished Constitutional Narrative: Thin, older, white male, frail-appearing, sitting up in bed watching television,appears comfortable, nontoxic General Appearance: cooperative, comfortable, well kempt and well developed Exam Limitations: no limitations Nutritional Appearance: thin HEENT normocephalic, head/scalp atraumatic and moist oral mucous membranes Eyes conjunctivae normal Eyes Narrative: No scleral icterus Neck supple Neck Narrative: Trachea midline Resp normal respiratory effort, no retractions, no use of accessory muscles and clearto auscultation bilaterally Auscultation: Negative for rales, rhonchi or wheezes Cardio regular rate, regular rhythm, S1 normal heart sound, S2 normal heart sound, no murmurs, no rub, no gallops and no clicks GI soft to palpation GI Narrative: Scaphoid abdomen, bowel sounds are normal active, no significant tenderness, no distention, abdomen is soft Extremity no clubbing, cyanosis or edema Extremity Narrative: Decreased lean muscle mass Neuro oriented x3, moves all extremities and no focal motor deficits Speech: speech normal Psych Psych Narrative: Very pleasant, interacts appropriately Weight / BMI Weight Weight: 76.2 kg Body Mass Index (BMI) 22.8 ABG / Lab / Microbiology Data 09/22/24 05:43 09/23/24 05:23 Laboratory: Laboratory Results - last 24 hr 09/23/24 05:23: Sodium 140, Potassium 3.8, Chloride 107, Carbon Dioxide 21.8, Anion Gap 11, BUN 16, Creatinine 1.66 H, Estim Creat Clear Calc 38.89 L, Est GFR(MDRD) Non-Af 42 L, BUN/Creatinine Ratio 9.8 L, Glucose 94, Calcium 7.8, Phosphorus 2.6 L D/C Instructions Discharge Diet: Low fat / Low cholesterol Discharge Activity: Return to Normal Activity and No Restrictions DC O2, CPAP, BIPAP Needs Home O2 Discharge instructions: No Meaningful Use Info Meaningful Use Meaningful Use Diagnoses (Choose all that apply): Ischemic CVA CVA Therapy Assessed for PT,OT and/or ST?: Yes Ischemic Stroke Antithrombotic order at d/c?: Yes Dx of Atrial fib/flutter?: No Statin Dosing Therapy Reference: STATIN DOSE THERAPY REFERENCE: * Patients > 75 years receive moderate or high dose statin therapy. * Patients 75 years or YOUNGER should receive HIGH intensity statin dose unless contraindicated. You will be required to document reason for non-treatment if statin daily dose does not meet guidelines. HIGH DOSE STATIN THERAPY DAILY Atorvastatin > than or = to 40 mg Rosuvastatin > than or = to 20 mg Amlodipine + Atorvastatin > than or = to 2.5/40 mg Ezetimibe + Simvastatin 10/80 mg Simvastatin 80mg Statins at discharge?: Yes Primary Dx Acute Ischemic CVA?: Yes Discharge Plan Admission Admit Date/Time: 09/21/24 14:45 Primary Reason for Your Visit: Dizziness/nausea and vomiting Attending Provider: Rebecca Lima Primary [facility] Provider[facility] Consult[facility] Providers: Linda Falcon Instructions Additional Instructions / Restrictions: 1. You will need to follow-up with neurology. You can call and follow-up with the neurologist below or follow-up with neurology at the [facility] which ever you prefer Discharge Orders/Prescriptions Prescriptions: New atorvastatin 40 mg Tablet 40 mg PO QHS Qty: 0 0RF enoxaparin 40 mg/0.4 mL Syringe 40 mg subcut DAILY Qty: 0 0RF Ensure Plus High Protein 0.08 gram-1.5 kcal/mL Liquid 120 ml PO TIDCM Qty: 0 0RF Continued amlodipine 10 mg Tablet 10 mg PO DAILY 90 Days Qty: 90 0RF loratadine 10 mg Tablet 10 mg PO DAILY octreotide acetate 30 mg suspension 30 mg IM Q28D Patient Comments: PT DUE YESTERDAY 09/19/24. PT BROUGHT. colestipol 1 gram tablet 1 g PO BID Patient Comments: RX SIG STATES 2QD, PT CAN ONLY TOLERATE 1QD Xermelo 250 mg tablet 250 mg PO TID Rx Instructions: must administer with a meal/food loperamide [Diamode] 2 mg tablet 4 mg PO BID levothyroxine [Levo-T] 25 mcg tablet 25 mcg PO DAILY aspirin 81 mg tablet 81 mg PO DAILY escitalopram oxalate 10 mg tablet 10 mg PO DAILY potassium chloride 20 mEq tablet extended release 20 meq PO DAILY Changed oxycodone-acetaminophen 5-325 mg tablet 1 tab PO TID 1 Days Qty: 3 0RF Patient Comments: TAKES INSTEAD OF SR. PT TAKES APPROX 3 TIMES DAILY Other Ambulatory Orders: 30 Day Event Recorder Preventi (Urgent) Timeframe: 1 Day Facility: [facility] - Location: Cardiovascular Services Ordered By: Dr. Rebecca Lima Referrals / Follow Up: Ovidio Mccabe MD [Non-Staff -Ordering Privileges] - Within 1 Month [facility] [Primary [facility] Provider[facility] - Within 1 Week (1 week after d/c) Disposition Disposition (needs filled in before D/C Order can be placed): Inpatient Rehab Unit/Facility Charges/Coding Visit Charges Inpatient E&M: 42217 Disch Hosp >30min 09/23/24 1747 <Electronically signed by Rebecca Lima DO> Cosigner Signature (if applicable): CC: Dr. Rebecca Lima DO; Dr. Ovidio Mccabe MD; [facility]~ Signed [facility] Work Phone: Evaluation note* Diagnosis Onset Date Resolution Status Acute hypokalemia acute Acute kidney injury acute Bilateral pneumonia acute Hypoxia acute Respiratory failure acute SIRS (systemic inflammatory response syndrome) acute [facility] Work Phone: Evaluation note* Diagnosis Onset Date Resolution Status Acute hypokalemia resolved Acute kidney injury resolved Hypoxia resolved Respiratory failure resolved SIRS (systemic inflammatory response syndrome) resolved [facility] Work Phone: Evaluation note* Diagnosis Loose stools- Primary Abnormal feces Status post partial resection of colon Other postprocedural status [facility] Diagnosis Diarrhea, unspecified type Status post partial resection of colon Other postprocedural status Family history of bowel cancer Carcinoid tumor of ileum, unspecified whether malignant [facility] Diagnosis Onset Date Resolution Status Admit Date Intractable nausea and vomiting acut e September 20, 2024 6:09pm [facility] Work Phone: History and physical note Author Linda Falcon [facility] Note Date/Time September 20, 2024 6:33p m [facility] Medical Records Department [address] [place] [address] H&P Exam - Hospitalist 09/20/24 1807 MR#: [id number] Acct: [id number] Name: ITZEL GOMEZ Rep #:[id number] : 1945 79 From: Linda Falcon MD PCP: [facility] Status:ADM KESHAV Location: [place] [address] HPI - General General Date of Admission: 09/20/24 Date of Service: 09/20/24 Chief Complaint: Falls, LH/Dizziness, N/V. 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 He also reports since onset a generalized headache on the top of his head described as pressure-like sensation rated 4 out of 10 in severity with no light or sound sensitivity. He notes that currently seated in the ED his nausea and emesis are completely abated but when he attempts to move at all and get up he does not know which way is up or down and has onset of nausea with bouts of emesis. In the ED NIHSS assessment 0. Workup in the ED included T97.6, heart rate 57, BP 191/93, respiratory rate 14, 96% on room air, CBC with WBC 15.2, hemoglobin 15.8, platelet 213 with left shift and lymphopenia, CBC with WBC 15.2, hemoglobin 15.8, platelet 213 with left shift and lymphopenia, unremarkable coags, CMP with BUN/2022/1.64, GFR 42, glucose 112, hepatic profile not marked appearing, troponin 60 with repeat delta troponin 56, CT head with small vessel ischemic/degenerative changes with no acute intracranial findings with generalized brain atrophy, CTA head and neck with mild scattered atherosclerotic calcifications of the anterior and posteriorintracranial extracranial circulation without any hemodynamically significant stenosis, CT abdomen and pelvis with IV contrast nonspecific lobulated isodense lesions in the pelvis measuring up to 3.4 cm likely consistent with his metastatic carcinoid tumors, mild esophageal hiatal hernia, some fecal retentionin the colon consistent with constipation, colonic diverticulosis without acute diverticulitis, chest x-ray with no acute cardiopulmonary findings, EKG with sinus bradycardia with no acute evidence of. In the ED patient ministered 2 L normal saline, Zofran 4 mg IV x 1, tetanus update and full-strength aspirin therapy. ED discussed case also with on-call neurologist with stroke alert who recommended continued neurological evaluation to be cautious. [facility] Medical History Bilateral pneumonia History of COVID-19 Anxiety and depression Cancer Former smoker Hypertension Stroke/cerebrovascular accident Multiple metastatic carcinoid tumors Home Medications ?Medication ?Instructions ?Recorded ?Last Taken ?Type amlodipine 10 mg tablet 10 mg PO DAILY 90 days #90 t abs 09/20/20 09/20/24 Rx loratadine 10 mg tablet 10 mg PO DAILY ALLERGIES 09/20/21 History aspirin 81 mg tablet 81 mg PO DAILY 09/20/2409/03 History colestipol 1 gram tablet 1 g PO BID 09/20/24 09/20/24 History escitalopram oxalate 10 mg tablet 10 mg PO DAILY 09/2009/20/24 History levothyroxine 25 mcg tablet 25 mcg PO DAILY 09/20/24 0 09/19/24 History (Levo-T) loperamide 2 mg tablet (Diamode) 4 mg PO BID 09/20/24 09/20/24 History octreotide acetate 30 mg IM Q28D 09/20/24 Unkno wn History oxycodone-acetaminophen 5 mg-325 1 tab PO Q6H PRN pain 09/20/24 09/20/24 History mg tablet potassium chloride 20 mEq 20 meq PO DAILY 09/20/24 History tablet,extended release telotristat ethyl 250 mg tablet 250 mg PO TID 09/20/24 09/20/24 History (Xermelo) Allergy/AdvReac Type Severity Reaction Status Date / Time amoxicillin Allergy Rash Verified 09/20/24 13:53 codeine AdvReac Nausea Verified 09/20/24 13:53 Family History Mother Heart disease Myocardial infarction CAD (coronary artery disease) Father COPD (chronic obstructive pulmonary disease) Surgical History H/O resection of small bowel S/P colectomy History of appendectomy History of cholecystectomy Social History household members: spouse Smoking Status: Never smoker how long ago did patient quit smoking: Patient smoked in the only and quit remotely. alcohol intake: never substance use type: does not use ROS ROS Narrative Admission Review of Systems: CONSTITUTIONAL: No weight loss, fever, chills, + weakness or fatigue. HEENT: + Lightheadedness, dizziness, headache. Eyes: No visual loss, blurred vision, double vision or yellow sclerae. Ears, Nose, Throat: No hearing loss, sneezing, congestion, runny nose or sore throat. SKIN: No rash or itching, lesions, wounds. CARDIOVASCULAR: + Lightheadedness, dizziness. No chest pain, chest pressure or chest discomfort, palpitations, edema, orthopnea, syncopal events. RESPIRATORY: No marked dyspnea, cough, marked sputum production, wheezing, hemoptysis. GASTROINTESTINAL: + anorexia, chronic abdominal pain, chronic loose stools, bouts of nausea and emesis. No melena, BRBPR. GENITOURINARY: No dysuria, frequency, urgency or retention. NEUROLOGICAL: + Lightheadedness, dizziness, falls, headache. No paralysis, ataxia, numbness or tingling in the extremities, focal weakness, change in bowelor bladder control, seizure. MUSCULOSKELETAL: + muscle, back pain, joint pain or stiffness. HEMATOLOGIC: + anemia, easy bleeding/bruising. LYMPHATICS: No enlarged nodes. No history of splenectomy. PSYCHIATRIC: + history of depression and anxiety/mood disorder. ENDOCRINOLOGIC: No reports of sweating, cold or heat intolerance. No polyuria orpolydipsia. ALLERGIES: + History of allergic rhinitis. Vital Signs Vital Signs Vital Signs: 09/20/24 13:54 09/20/24 14:15 09/20/24 14:39 Temperature 97.6 F L Temperature Source Oral Pulse Rate 57 L 61 Respiratory Rate 14 16 Blood Pressure 191/93 H 174/77 H Blood Pressure Mean 125 109 Pulse Ox 96 96 96 Oxygen Delivery Method Room Air Room Air Room Air 09/20/24 14:45 09/20/24 15:15 09/20/24 15:58 Temperature Temperature Source Pulse Rate 58 L 58 L 54 L Respiratory Rate 16 16 16 Blood Pressure 178/80 H 162/84 H 162/86 H Blood Pressure Mean 112 110 111 Pulse Ox 96 96 95 Oxygen Delivery Method Room Air Room Air Room Air 09/20/24 17:12 Temperature Temperature Source Pulse Rate 56 L Respiratory Rate 16 Blood Pressure 164/78 H Blood Pressure Mean 106 Pulse Ox 95 Oxygen Delivery Method Room Air Weight Weight: 215 lb 2.738 oz Body Mass Index (BMI) 29.2 Physical Exam Narrative Physical Examination: General: Awake, alert, oriented x 3 and cooperative, seated upright in the ED bed, fatigued, using a right sided hearing aid. Skin: Normal color, normal turgor, no icterus, no cyanosis Except occasional very stage ecchymoses, abrasions. HEENT: AT/NC, EOMI, PERRLA, mildly dry MM, endentulous, no carotid bruits or JVDnoted. Lungs: Mildly diminished, greater bases, appropriate effort, no rales, ronchi orwheezing. Heart: Bradycardic with regular rhythm; no gallop, rub audible. Abdomen: Soft, NTTP, ND, mildly hyperactive BS, no markedly appreciated HSM. Extremities: No cyanosis, clubbing, or edema. Neurological: Patient awake, alert, oriented as noted, cognitive function intact; pupils equally reactive to light and accommodation, cranial nerves grossnormal, moving all 4 extremities, no focal deficits, finger-nose and [id number] appropriate, equivocal Babinski, sensation intact. Psychiatric: Affect appears fatigued, no acute evidence of depressive or anxietyfeelings. Results Lab / Micro Data 09/20/24 14:10 09/20/24 14:10 Labs: Laboratory Results - last 24 hr 09/20/24 14:10: WBC 15.2 H, RBC 4.99, Hgb 15.8, Hct 47.0, MCV 94.2 H, MCH 31.7, MCHC 33.6, RDW Std Deviation 46.4 H, RDW Coeff of Gretel 13.3, Plt Count 213, MPV 8.9, Immature Gran % (Auto) 0.500, Neut % (Auto) 92.9 H, Lymph % (Auto) 3.0 L, [place] % (Auto) 3.2, Eos % (Auto) 0.1, Baso % (Auto) 0.3, Absolute Neuts (auto) 14.1 H, Absolute Lymphs (auto) 0.45 L, Nucleated RBC % 0, PT 13.2, INR 1.0, APTT27.0, Sodium 142, Potassium 4.6, Chloride 106, Carbon Dioxide 23.3, Anion Gap 12, BUN 22 H, Creatinine 1.64 H, Estim Creat Clear Calc 44.22 L, Est GFR (MDRD) Non-Af 42 L, BUN/Creatinine Ratio 13.6, Glucose 112 H, Calcium 8.9, Total Bilirubin 0.47, AST 28, ALT 19, Alkaline Phosphatase 103, Troponin T High Sens 60 H*, Total Protein 7.4, Albumin 4.5, Globulin 2.9, Albumin/Globulin Ratio 1.6,Lipase 23 09/20/24 14:54: POC Glucose 96 09/20/24 16:00: Urine Color Straw, Urine Clarity Clear, Urine pH 6.0, Ur Specific [place] 1.015, Urine Protein 30 H, Urine Glucose (UA) Normal, Urine Ketones Negative, Urine Occult Blood 25 H, Urine Nitrite Negative, Urine Bilirubin Negative, Urine Urobilinogen Normal, Ur Leukocyte Esterase Negative, Urine RBC 0 SEEN, Urine WBC 0 SEEN, Ur Squamous Epith Cells 0 SEEN, Calcium Oxalate Crystal RARE, Urine Bacteria 0 SEEN, Fine Granular Casts 0-5 SEEN, UrineMucus 0 SEEN 09/20/24 16:10: Troponin T Hi Sens 2 Hr 56 H* Imaging Radiology Impression Abdomen/Pelvis CT 09/20/24 14:15 IMPRESSION: 1. Nonspecific lobulated isodense lesion in the pelvis measuring up to 3.4 cm. This could be enlarged lymph node. Neoplastic can not be excluded. Clinical correlation is recommended. 2. Mild esophageal hiatal hernia. 3. Fecal retention in the colon consistent with constipation. 4. Colonic diverticulosis without acute diverticulitis. Reading Location: [facility] Brain CT 09/20/24 14:15 IMPRESSION: 1. Small vessel ischemic/degenerative changes. 2. No acute intracranial hemorrhage, midline shift or mass effect. If symptoms persist, further evaluation with MRI is recommended. 3. Generalized brain atrophy. Reading Location: [facility] Head/Neck CTA 09/20/24 14:16 IMPRESSION: Mild scattered atherosclerotic calcification of the anterior and posterior intracranial and extracranial circulation without hemodynamically significant stenosis. Reading Location: [facility] Chest X-Ray 09/20/24 16:30 IMPRESSION: NO ACUTE FINDINGS. 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 #1. Intractable nausea, emesis, frequent falls with concern for vertigo with concern for possible posterior CVA with previous CVA history: Will admit to PCU,will obtain MRI Brain with and without contrast, ECHO, PT/OT/Speech/Nutrition evaluation per protocol. Will allow permissive HTN, maintain on asa, maintain on fall and aspiration precautions. Mag, TSH, FLP, HgbA1c requested. Maintain onfall and aspiration precautions. Continue neurology consultation. Given intractable nausea and emesis will initially maintain on clears with IV PPI and once clinically improving will advance diet. Certainly presentation could be confounded also by metastatic carcinoid tumors as noted below. #2. Elevated cardiac enzyme of unclear significance: Admission troponin 60 withrepeat delta troponin 56, chest x-ray no acute cardiopulmonary finding, EKG withbradycardia with no acute evidence of ischemia, will maintain on a monitored bedto assure no acute myocardial infarction with serial cardiac enzymes and EKGs. Magnesium level requested. FLP in AM. ASA, NG. ED discussed case with on-call fraud manager Dr. Garcia, who recommended continued observation but no intervention or consultation needed at this time and felt it was likely noncardiac in nature. #3. 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 If intractable nausea and emesis are not abating there is no obvious neurological finding for the reason for the symptoms may require GI involvement given underlying cancer history. Continue patient home Xermelo regimen. Will also initiate patient octreotide 30 mg IM injection as it appears he was due 09/19/2024 and was not injected. #4. Chronic Kidney Disease Stage III, unclear subtype. GFR trending: AdmissionBUN/Cr 22/1.64, GFR 42, baseline renal function more recently primarily 1.8-2.1 but has vacillated, most recently previous 09/25/2022 creatinine 2.09, repeat BMPin AM. #5. Hypertension: Will maintain permissive hypertension given presentation withurine agents per stroke protocol. #6. Allergic rhinitis: Will continue patient home fluticasone and loratadine home regimen. #7. Mood disorder/anxiety and depression: Will continue patient home aripiprazole regimen as well as escitalopram, encourage continued outpatient follow-up as previously arranged. #8. Former tobacco use: Encourage continued tobacco cessation. #9. Obesity: Weight loss and lifestyle changes encouraged. #10. DVT prophylaxis: Lovenox. #11. CODE status: Patient YAMILET is his and living will is currently in place. Discussed CODE status at length including difference between FULL code, DNR-CCA and DNR-CC status. Following discussions about the differences in these status, requested Full Code status. Advanced Care Planning Face to Face Time: 16minutes. Charges/Coding Visit Charges Inpatient E&M: 54466 Init Hosp L3 Procedures Hospitalists Procedures: 25387 Advncd Care Plan 30 Min 09/20/24 1833 <Electronically signed by Linda Falcon MD> Cosigner Signature (if applicable): CC: Dr. Linda Falcon MD; [facility]~ Signed [facility] Work Phone: Reason for referral (narrative)* Outpatient Procedure (Routine) - Closed Specialty Diagnoses / Procedures Referred By Contac t Referred To Contact [facility] Diagnoses Diarrhea, unspecified type Status post partial resection of colon Family history of bowel cancer Procedures COLONOSCOPY DIAGNOSTIC COLONOSCOPY FLX DX W/COLLJ SPEC WHEN PFRMD Arianna Montiel PA-C [address] [place] [address] [facility] [address] [place] [address] Referral ID Status Reason Start Date Expiration Date V isits Requested Visits Authorized [id number] Closed Auto-Generate d Referral 09/25/2022 05/05/2023 1 1 [facility])No reason for referral information availableWVeterans Health Administration Work Phone: Reason for visit Narrative* Outpatient Procedure (Routine) - Closed Specialty Diagnoses / Procedures Referred By Contac t Referred To Contact [facility] Diagnoses Diarrhea, unspecified type Status post partial resection of colon Family history of bowel cancer Procedures COLONOSCOPY DIAGNOSTIC COLONOSCOPY FLX DX W/COLLJ SPEC WHEN PFRMD Arianna Montiel PA-C [address] [place] [address] [facility] [address] [place] [address] Referral ID Status Reason Start Date Expiration Date V isits Requested Visits Authorized [id number] Closed Auto-Generate d Referral 09/25/2022 05/05/2023 1 1 [facility] Summary Purpose Family History No Family History Records Found Relationship Condition Age at Onset Recorded Date/T gilberto mother Cardiac disease Unknown Myocardial infarction Unknown Coronary artery disease Unknown father Chronic obstructive pulmonary disease Unk nown Advance Directives No Advanced Directives Records Found Advance Directive Response Recorded Date/ Time Living Will No September 21, 2021 4 :07pm Power of Manager Event No September 21, 2021 4:07pm Advance Directive Response Recorded Date/ Time Living Will Yes September 21, 2021 8 :49pm Power of Manager Event Yes September 21, 2021 8:49pm Advance Directive Response Recorded Date/ Time Name of Medical Power of Manager Event Shay () September 21, 2021 8:49pm Living Will No November 13, 2021 12:01pm Power of Manager Event No November 13 12:01pm Advance Directive Response Recorded Date/ Time Do you have a Healthcare Power of Manager Event? Yes September 20, 2024 1:56pm Name of Medical Power of Manager Event harmony dye September 20, 2024 1:56pm Advance Directive Response Recorded Date/ Time Do you have a Healthcare Power of Manager Event? Yes September 20, 2024 6:40pm Name of Medical Power of Manager Event harmony gomez September 20, 2024 1:56pm Advance Directive Response Recorded Date/ Time Do you have a Healthcare Power of Manager Event? Yes September 20, 2024 6:40pm Name of Medical Power of Manager Event harmony gomez September 20, 2024 1:56pm Do you have a Healthcare Power of Manager Event? Yes September 24, 2024 3:25pm Name of Medical Power of Manager Event sloane Dhaliwal September 24, 2024 3:25pm Chief Complaint and Reason for Visit Chief Complaint lethargy, cough, fev er HYPOXIA, SUSPECT ACUTE VIRAL SYNDROME, MAGGIE Reason for Visit Acute hypokalemia Acute kidney injury Bilateral pneumonia Hypoxia Respiratory failure SIRS (systemic inflammatory response syndrome) Chief Complaint lethargy, cough, fev er HYPOXIA, SUSPECT ACUTE VIRAL SYNDROME, MAGGIE HYPOXIA, SUSPECT ACUTE VIRAL SYNDROME, MAGGIE HYPOXIA, SUSPECT ACUTE VIRAL SYNDROME, MAGGIE Reason for Visit Acute hypokalemia Acute kidney injury Bilateral pneumonia Hypoxia Respiratory failure SIRS (systemic inflammatory response syndrome) Chief Complaint lethargy, cough, fev er HYPOXIA, SUSPECT ACUTE VIRAL SYNDROME, MAGGIE HYPOXIA, SUSPECT ACUTE VIRAL SYNDROME, MAGGIE HYPOXIA, SUSPECT ACUTE VIRAL SYNDROME, MAGGIE LEFT LEG Reason for Visit Acute hypokalemia Acute kidney injury Hypoxia Respiratory failure SIRS (systemic inflammatory response syndrome) Chief Complaint Admit Date ? TIA/CVA, ELEVATED TROP UNCLEAR SIGNIFI CANCE September 20, 2024 6:09pm Reason for Visit Admit Date Intractable nausea and vomiting September 6:09pm Chief Complaint Admit Date ? TIA/CVA, ELEVATED TROP UNCLEAR SIGNIFI CANCE September 20, 2024 6:09pm ? TIA/CVA, ELEVATED TROP UNCLEAR SIGNIFI CANCE September 21, 2024 2:45pm ? TIA/CVA, ELEVATED TROP UNCLEAR SIGNIFI CANCE September 22, 2024 7:43am ? TIA/CVA, ELEVATED TROP UNCLEAR SIGNIFI CANCE September 23, 2024 4:56pm Reason for Visit Admit Date Cerebellar stroke September 21, 2024 2:45p m Dizziness May 19th, 2025 2:45p m Intractable nausea and vomiting September 2:45pm Nausea & vomiting September 21, 2024 2:45p m Chief Complaint Admit Date ? TIA/CVA, ELEVATED TROP UNCLEAR SIGNIFI CANCE September 20, 2024 6:09pm ? TIA/CVA, ELEVATED TROP UNCLEAR SIGNIFI CANCE September 21, 2024 2:45pm ? TIA/CVA, ELEVATED TROP UNCLEAR SIGNIFI CANCE September 22, 2024 7:43am ? 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, 2024 2:45p m Dizziness September 21, 2024 2:45p m Intractable nausea and vomiting September 2:45pm Nausea & vomiting September 21, 2024 2:45p m Allergic rhinitis September 23, 2024 6:05p m Cerebellar stroke September 23, 2024 6:05p m Cognitive dysfunction September 23, 2024 6:0 5pm Debility September 23, 2024 6:05p m Gait instability September 23, 2024 6:05p m Grade I diastolic dysfunction September 23, 2024 6:05pm History of depression September 23, 2024 6:0 5pm Hypothyroidism September 23, 2024 6:05p m Mild concentric left ventricular hypertr ophy September 23, 2024 6:05pm Sundowning September 23, 2024 6:05p m Benign essential HTN September 23, 2024 6:05 pm Chronic abdominal pain September 23, 2024 6: 05pm Chronic narcotic use September 23, 2024 6:05 pm Chronic renal failure, stage 3 (moderate ) September 23, 2024 6:05pm Dyslipidemia September 23, 2024 6:05p m History of malignant carcinoid tumor September 23, 2024 6:05pm Obesity (BMI 30.0-34.9) September 23, 2024 6 :05pm 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 TIA/CVA, ELEVATED TROP UNCLEAR SIGNIFI CANCE September 20, 2024 6:09pm ? TIA/CVA, ELEVATED TROP UNCLEAR SIGNIFI CANCE September 21, 2024 2:45pm ? TIA/CVA, ELEVATED TROP UNCLEAR SIGNIFI CANCE September 22, 2024 7:43am ? TIA/CVA, ELEVATED TROP UNCLEAR SIGNIFI CANCE September 23, 2024 4:56pm DEBILITY September 23, 2024 6:05p m DEBILITY September 24, 2024 10:45 am DEBILITY September 27, 2024 8:51a m DEBILITY September 29, 2024 12:51 pm DEBILITY September 30, 2024 8:02a m STROKE NAGMELIDATHI TO READ October 05, 2024 10:19am Reason for Visit Admit Date Cerebellar stroke September 21, 2024 2:45p m Dizziness September 21, 2024 2:45p m Intractable nausea and vomiting September 2:45pm Nausea & vomiting September 21, 2024 2:45p m Cerebellar stroke September 23, 2024 6:05p m Cognitive dysfunction September 23, 2024 6:0 5pm Debility September 23, 2024 6:05p m Gait instability September 23, 2024 6:05p m Sundowning September 23, 2024 6:05p m Allergic rhinitis September 23, 2024 6:05p m Benign essential HTN September 23, 2024 6:05 pm Chronic abdominal pain September 23, 2024 6: 05pm Chronic narcotic use September 23, 2024 6:05 pm Chronic renal failure, stage 3 (moderate ) September 23, 2024 6:05pm Dyslipidemia September 23, 2024 6:05p m Grade I diastolic dysfunction September 23, 2024 6:05pm History of depression September 23, 2024 6:0 5pm History of malignant carcinoid tumor September 23, 2024 6:05pm Hypothyroidism September 23, 2024 6:05p m Mild concentric left ventricular hypertr ophy September 23, 2024 6:05pm Obesity (BMI 30.0-34.9) September 23, 2024 6 :05pm 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, 2024 6:05 pm Medications Administered Section Inactive Administered Medications - up to 3 most recent administrations Medication Order MAR Action Action Date Dose Rate Site fentaNYL 50 mcg/mL 25-100 mcg injection (SUBLIMAZE) 25-100 mcg, INTRAVENOUS, DIRECTED, Starting on Penny 11/08/22 at 0930, Until Penny 11/08/22 at 1329, DOSING DIRECTED BY PHYSICIAN FOR PROCEDURAL SEDATION ONLY, Intraprocedure Given 11/08/2022 8:59 AM EDT 50 mcg lactated ringers iv infusion 30 mL/hr, INTRAVENOUS, CONTINUOUS, Starting on Penny 11/08/22 at 0830, Until Penny 11/08/22 at 0930, Preprocedure New Bag/Syringe/Bottle 11/08/2022 8:30 AM EDT 30 mL/hr 30 mL/hr midazolam 1-5 mg injection (VERSED) 1-5 mg, INTRAVENOUS, DIRECTED, Starting on Penny 11/08/22 at 0930, Until Penny 11/08/22 at 1329, DOSING DIRECTED BY PHYSICIAN FOR PROCEDURAL SEDATION ONLY, Intraprocedure Given 11/08/2022 8:59 AM EDT 3 mg Additional Source Comments (unrecognized sect ion and content) No Status Records FoundNo Status Records FoundNo Status Records Found INFORMATION SOURCE (unrecogn ized section and content) DATE CREATED AUTHOR 10/24/2017 [facility] ([place]) DATE CREATED AUTHOR AUTHOR'S ORGANIZ ATION 11/17/2022 [facility] DATE CREATED AUTHOR AUTHOR'S ORGANIZ ATION 11/15/2024 [facility] Goals (unrecognized section and content) Goals may be documented in a n alternate sectionGoals may be documented in an alternate sectionGoals may be documented in an alternate section Source Comments (unrecognize d section and content) In the event this informatio n is protected by the Federal Confidentiality of Alcohol and Drug Abuse Patient Records regulations: The Federal rules restrict any use of the information to criminally investigate or prosecute any alcohol or drug abuse patient.[facility] Center[facility] the event this information is protected by the Federal Confidentiality of Alcohol and Drug Abuse Patient Records regulations: The Federal rules restrict any use of the information to criminally investigate or prosecute any alcohol or drug abuse patient.[facility] Reason for Visit (unrecogniz ed section and content) Reason Comments Follow Up colonoscopy Specialty Diagnoses / Procedures Referred By Scott t Referred To Contact General Surgery / GENERAL SURGERY Diagnoses Follow-up exam Change in bowel habit COLONOSCOPY FOLLOW UP Procedures OFFICE/OUTPATIENT ESTABLISHED HIGH MDM 40-54 MIN EST DDI PATIENT Troy Villavicencio MD [address] [place] [address] Arianna Montiel PA-C [address] [place] [address] Referral ID Status Reason Start Date Expiration Date Visits Re quested Visits Authorized [id number] Closed 09/03/2022 03/02/2023 1 1 Care Teams (unrecognized sec tion and content) Reconciliation Coordinator Relationship Specialty Start Date End Date Miryam Hines CNP [id number] [place] [address] PCP - General Internal Medicine 07/14/21 Patricia Epstein RN [address] [place] [address] Director Of [employer] Life Hematology/Oncology 07/21/21 Reconciliation Coordinator Relationship Specialty Start Date End Date Miryam Hines CNP [id number] [place] [address] PCP - General Internal Medicine 07/14/21 Patricia Epstein RN [address] [place] [address] Director Of [employer] Hematology/Oncology 07/21/21 Team Status: Active Member Role Status Dates [facility] Primary Care Provider Active Team Status: Active Member Role Status Dates [facility] Primary Care Provider Active Start: September 20, 2024 Dr. René Silva DO Emergency Provider Active Start: September 20, 2024 Dr. Linda Falcon MD Admit Provider Active St art: September 20, 2024 Dr. Linda Falcon MD Attending Provider Active Start: September 20, 2024 Dr. Linda Falcon MD Other Provider Active St art: September 20, 2024 Team Status: Inactive Member Role Status Dates [facility] Primary Care Provider Active Start: September 21, 2024 End: September 23, 2024 Dr. René Silva DO Emergency Provider Active Start: September 21, 2024 End: September 23, 2024 Dr. Linda Falcon MD Admit Provider Active St art: September 21, 2024 End: September 23, 2024 Dr. Linda Falcon MD Other Provider Active St art: September 21, 2024 End: September 23, 2024 Dr. Rebecca Lima DO Attending Provider Active S tart: September 21, 2024 End: September 23, 2024 Dr. José Miguel Kumar MD Other Provider Active Start: September 21, 2024 Alanna Shane MD Other Provider Active Start : September 21, 2024 Dr. Leni Souza DO Other Provider Active St art: September 21, 2024 Dr. Melany Valencia MD Other Provider Active Start: September 21, 2024 Dr. Oskar Crowe MD Other Provider Active Sta rt: September 21, 2024 Dr. Meg Guzman MD Other Provider Active Start : September 21, 2024 Dr. Octavio Mina MD Other Provider Active Start: September 21, 2024 Dr. Rafael Johnson MD Other Provider Active Start : September 21, 2024 Dr. Rhys Albright MD Other Provider Active Sta rt: September 21, 2024 Rochelle Stark MD Other Provider Active Start : September 21, 2024 Dr. Joon Gutierrez MD Other Provider Active St art: September 21, 2024 Dr. Amanda Liriano MD Other Provider Active Start : September 21, 2024 Dr. Al Hernandez MD Other Provider Active Sta rt: September 21, 2024 Dr. Mary Duran MD Other Provider Active Start: September 21, 2024 Dr. Fish Shaw MD Other Provider Active St art: September 21, 2024 Dr. Rosalia Meade MD Other Provider Active Star t: September 21, 2024 Dr. Berto Boles MD Other Provider Active St art: September 21, 2024 Dr. Carol Lima MD Other Provider Active Start: September 21, 2024 Christian Rivera MD Other Provider Active Start: September 21, 2024 Dr. Rebecca Lima , DO Attending Provider Active S tart: September 21, 2024 Dr. Rebecca Lima , DO Other Provider Active Start : September 21, 2024 Team Status: Active Member Role Status Dates [facility] Primary Care Provider Active Start: September 21, 2024 Dr. Wilbert Garcia MD Attending Provider Active S tart: September 21, 2024 Team Status: Active Member Role Status Dates [facility] Primary Care Provider Active Start: September 22, 2024 Dr. René Silva , DO Emergency Provider Active Start: September 22, 2024 Dr. Linda Falcon MD Admit Provider Active St art: September 22, 2024 Dr. Linda Falcon MD Other Provider Active St art: September 22, 2024 Dr. Rebecca Lima , DO Attending Provider Active S tart: September 22, 2024 Dr. Rebecca Lima , DO Other Provider Active Start : September 22, 2024 Team Status: Active Member Role Status Dates [facility] Primary Care Provider Active Start: September 23, 2024 Dr. René Silva , DO Emergency Provider Active Start: September 23, 2024 Dr. Linda Falcon MD Admit Provider Active St art: September 23, 2024 Dr. Linda Falcon MD Other Provider Active St art: September 23, 2024 Dr. Rebecca Lima , DO Attending Provider Active S tart: September 23, 2024 Dr. Rebecca Lima , DO Other Provider Active Start : September 23, 2024 Team Status: Inactive Member Role Status Dates [facility] Primary Care Provider Active Start: September 23, 2024 End: September 30, 2024 Dr. Pamella Zuniga , DO Admit Provider Active Start: September 23, 2024 End: September 30, 2024 Dr. Pamella Zuniga , DO Attending Provider Act jayant Start: September 23, 2024 End: September 30, 2024 Team Status: Active Member Role Status Dates [facility] Primary Care Provider Active Start: September 24, 2024 Dr. Pamella Zuniga , DO Admit Provider Active Start: September 24, 2024 Dr. Pamella Zuniga , DO Attending Provider Act jayant Start: September 24, 2024 Dr. Pamella Zuniga , DO Other Provider Active Start: September 24, 2024 Team Status: Active Member Role Status Dates [facility] Primary Care Provider Active Start: September 27, 2024 Dr. Pamella Zuniga , DO Admit Provider Active Start: September 27, 2024 Dr. Pamella Zuniga , DO Attending Provider Act jayant Start: September 27, 2024 Dr. Pamella Zuniga , DO Other Provider Active Start: September 27, 2024 Team Status: Active Member Role Status Dates [facility] Primary Care Provider Active Start: September 29, 2024 Dr. Pamella Zuniga , DO Admit Provider Active Start: September 29, 2024 Dr. Pamella Zuniga , DO Attending Provider Act jayant Start: September 29, 2024 Dr. Pamella Zuniga , DO Other Provider Active Start: September 29, 2024 Team Status: Active Member Role Status Dates [facility] Primary Care Provider Active Start: September 30, 2024 Dr. Pamella Zuniga , DO Admit Provider Active Start: September 30, 2024 Dr. Pamella Zuniga , DO Attending Provider Act jayant Start: September 30, 2024 Dr. Pamella Zuniga , DO Other Provider Active Start: September 30, 2024 Team Status: Active Member Role/Relationship Status Dates [facility] Primary Care Provider Active Team Status: Active Member Role/Relationship Status Dates [facility] Primary Care Provider Active Start: September 20, 2024 Dr. René Silva , DO Emergency Provider Active Start: September 20, 2024 Dr. Linda Falcon MD Admit Provider Active St art: September 20, 2024 Dr. Linda Falcon MD Attending Provider Active Start: September 20, 2024 Dr. Linda Falcon MD Other Provider Active St art: September 20, 2024 Team Status: Inactive Member Role/Relationship Status Dates [facility] Primary Care Provider Active Start: September 21, 2024 End: September 23, 2024 Dr. René Silva , Emergency Provider Active Start: September 21, 2024 End: September 23, 2024 Dr. Linda Falcon MD Admit Provider Active St art: September 21, 2024 End: September 23, 2024 Dr. Linda Falcon MD Other Provider Active St art: September 21, 2024 End: September 23, 2024 Dr. Rebecca Lima , Attending Provider Active S tart: September 21, 2024 End: September 23, 2024 Dr. José Miguel Kumar MD Other Provider Active Start: September 21, 2024 Alanna Shane MD Other Provider Active Start : September 21, 2024 Dr. Leni Souza DO Other Provider Active St art: September 21, 2024 Dr. Melany Valencia MD Other Provider Active Start: September 21, 2024 Dr. Oskar Crowe MD Other Provider Active Sta rt: September 21, 2024 Dr. Meg Guzman MD Other Provider Active Start : September 21, 2024 Dr. Octavio Mina MD Other Provider Active Start: September 21, 2024 Dr. Rafael Johnson MD Other Provider Active Start : September 21, 2024 Dr. Rhys Albright MD Other Provider Active Sta rt: September 21, 2024 Rochelle Stark MD Other Provider Active Start : September 21, 2024 Dr. Joon Gutierrez MD Other Provider Active St art: September 21, 2024 Dr. Amanda Liriano MD Other Provider Active Start : September 21, 2024 Dr. Al Hernandez MD Other Provider Active Sta rt: September 21, 2024 Dr. Mary Duran MD Other Provider Active Start: September 21, 2024 Dr. Fish Shaw MD Other Provider Active St art: September 21, 2024 Dr. Rosalia Meade MD Other Provider Active Star t: September 21, 2024 Dr. Berto Boles MD Other Provider Active St art: September 21, 2024 Dr. Carol Lima MD Other Provider Active Start: September 21, 2024 Christian Rivera MD Other Provider Active Start: September 21, 2024 Dr. Rebecca Lima , DO Attending Provider Active S tart: September 21, 2024 Dr. Rebecca Lima , DO Other Provider Active Start : September 21, 2024 Team Status: Active Member Role/Relationship Status Dates [facility] Primary Care Provider Active Start: September 21, 2024 Dr. Wilbert Garcia MD Attending Provider Active S tart: September 21, 2024 Team Status: Active Member Role/Relationship Status Dates [facility] Primary Care Provider Active Start: September 22, 2024 Dr. René Silva , DO Emergency Provider Active Start: September 22, 2024 Dr. Linda Falcon MD Admit Provider Active St art: September 22, 2024 Dr. Linda Falcon MD Other Provider Active St art: September 22, 2024 Dr. Rebecca Lima , Attending Provider Active S tart: September 22, 2024 Dr. Rebecca Lima , DO Other Provider Active Start : September 22, 2024 Team Status: Active Member Role/Relationship Status Dates [facility] Primary Care Provider Active Start: September 23, 2024 Dr. René Silva , DO Emergency Provider Active Start: September 23, 2024 Dr. Linda Falcon MD Admit Provider Active St art: September 23, 2024 Dr. Linda Falcon MD Other Provider Active St art: September 23, 2024 Dr. Rebecca Lima , DO Attending Provider Active S tart: September 23, 2024 Dr. Rebecca Lima , DO Other Provider Active Start : September 23, 2024 Team Status: Inactive Member Role/Relationship Status Dates [facility] Primary Care Provider Active Start: September 23, 2024 End: September 30, 2024 Dr. Pamella Zuniga DO Admit Provider Active Start: September 23, 2024 End: September 30, 2024 Dr. Pamella Zuniga DO Attending Provider Act jayant Start: September 23, 2024 End: September 30, 2024 Team Status: Active Member Role/Relationship Status Dates [facility] Primary Care Provider Active Start: September 24, 2024 Dr. Pamella Zuniga DO Admit Provider Active Start: September 24, 2024 Dr. Lori Sementi , DO Attending Provider Act jayant Start: September 24, 2024 Dr. Pamella Zuniga , DO Other Provider Active Start: September 24, 2024 Team Status: Active Member Role/Relationship Status Dates [facility] Primary Care Provider Active Start: September 27, 2024 Dr. Pamella Zuniga , Admit Provider Active Start: September 27, 2024 Dr. Pamella Zuniga , DO Attending Provider Act jayant Start: September 27, 2024 Dr. Pamella Zuniga , DO Other Provider Active Start: September 27, 2024 Team Status: Active Member Role/Relationship Status Dates [facility] Primary Care Provider Active Start: September 29, 2024 Dr. Pamella Zuniga , DO Admit Provider Active Start: September 29, 2024 Dr. Pamella Zuniga , DO Attending Provider Act jayant Start: September 29, 2024 Dr. Pamella Zuniga , Other Provider Active Start: September 29, 2024 Team Status: Active Member Role/Relationship Status Dates [facility] Provider Active Start: September 30, 2024 Dr. Pamella Zuniga , DO Admit Provider Active Start: September 30, 2024 Dr. Pamella Zuniga DO Attending Provider Act jayant Start: September 30, 2024 Dr. Pamella Zuniga , DO Other Provider Active Start: September 30, 2024 Team Status: Active Member Role/Relationship Status Dates Dr. Rebecca Lima DO Attending Provider Active S tart: October 05, 2024 Dr. Rebecca Lima DO Referring Provider Active S tart: October 05, 2024 [facility] Primary Care Provider Active Start: October 05, 2024 FOR RECORDS PERTAINING TO PATIENTS WHO ARE OR HAVE BEEN ENROLLED IN A CHEMICAL DEPENDENCY/SUBSTANCEABUSE PROGRAM, SOME INFORMATION MAY BE OMITTED. This clinical summary was aggregated from multiple sources. Caution should be exercised in using it in the provision of clinical care. This summary normalizes information from multiple sources, and as a consequence, information in this document may materially change the coding, format and clinical context of patient data. In addition, data may be omitted in some cases. CLINICAL DECISIONS SHOULD BE BASED ON THE PRIMARY CLINICAL RECORDS. [facility] [employer] provides no warranty or guarantee of the accuracy or completeness of information in this document.
[2024-12-01 23:48] VITALS: BMI 21.7
[2024-12-01] MEDS: 0.9% Normal Saline (1000mL) 1,000 ML 999 ML IV (23:49)
[2024-12-01 23:50] VITALS: BP 128/88; PULSE 94; RESP 16; O2SAT 93
[2024-12-01 23:59] VITALS: BP 122/98; O2SAT 95
[2024-12-02] VITALS (17 sets, daily range): BP systolic 105–128; BP diastolic 60–98; PULSE 71–96; RESP 14–18; TEMP 36.6–37.2; O2SAT 94–99
[2024-12-02 00:08] LABS: Mucous, Urine 0 SEEN /hpf (<or=2+); Red Blood Cells-Urine 0 SEEN /hpf (0-5)
[2024-12-02 00:20] LABS: Hematocrit 48.1 % (40-54); Hemoglobin 15.8 g/dL (13.0-16.5); Immature Granulocytes Count 0.160 X10^3/uL (0.0-0.0); Mean Corp Hgb Conc 32.8 g/dL (32-36); Mean Corpuscular Volume 97.0 fL (80-94); Mean Platelet Vol. 10.1 fl (6.2-12.0); NRBC Flagged by Analyzer 0 % (0-5); POSITIVE DIFFERENTIAL YES; Platelet Count 300 K/mm3 (150-450); RBC Distribution Width CV 14.1 % (11.6-14.6); RBC Distribution Width SD 50.6 fl (35.1-43.9); Red Blood Count 4.96 M/mm3 (4.6-6.2); White Blood Count 23.2 K/mm3 (4.4-11.0)
[2024-12-02 00:22] LABS: Color, Urine Yellow (Yellow); Glucose, Dipstick Normal (Normal); Ketone-Dipstick 5 mg/dl (Negative); Leukocyte Esterase-Dipstick 25 /ul (Negative); Nitrite-Dipstick Negative (Negative); Occult Blood-Urine Negative /ul (Negative); Protein-Dipstick 100 mg/dl (Negative); Specific Gravity, Urine 1.030 (1.002-1.030)
[2024-12-02 00:23] LABS: Lipase 13 U/L (13-75)
[2024-12-02 00:25] LABS: AST(SGOT) 46 U/L (<=37); Alanine Aminotransfer ALT/SGPT 37 U/L (<=46); Albumin, Serum 4.2 g/dL (3.4-4.8); Alkaline Phosphatase 122 U/L (40-129); Anion Gap 14 (5-15); BUN 30 mg/dL (4-19); BUN/Creat Ratio 15.4 RATIO (10-20); Calcium,Total 9.1 mg/dL (7.6-11.0); Carbon Dioxide 23.3 mmol/L (21.0-32.0); Chloride 104 mmol/L (98-108); Differential Indicated SCAN CRITERIA MET; Estimated Creatinine Clearance 31.96 ml/min (50-250); Globulin 2.3 g/dL (2.2-4.2); Glucose 159 mg/dL (70-99); Potassium 5.0 mmol/L (3.3-5.1)
[2024-12-02 00:25] LABS: Urine Bilirubin Dipstick 3 mg/dL (Negative)
[2024-12-02 00:28] LABS: Calcium Oxalate Crystals Ur 2+ /hpf (<or=2+); Squamous Epithelial Cells - UA 0-5 SEEN /hpf (0-5)
[2024-12-02 01:14] LABS: Differential Comment SCANNED; Red Cell Morphology NORM C+C NORMAL (NORM C&C)
--- NOTE | 2024-12-02 02:33 | ED.RN ---
Dr Del Valle notified of Pt triggering sepsis alert.
[2024-12-02] MEDS: HYDROmorphone 0.5 MG/0.5 ML SYRINGE IV (02:37)
[2024-12-02] MEDS: 0.9% Normal Saline (1000mL) 1,000 ML 999 ML IV (02:37)
[2024-12-02] MEDS: Cefepime HCl 2 GM in 0.9% Normal Saline (100mL MB+) 100 ML IV (04:15)
[2024-12-02 05:46] LABS: Reflex Lactate? Y
[2024-12-02] MEDS: 0.9% Normal Saline (1000mL) 1,000 ML 250 ML IV ×2 (06:35→15:39)
--- NOTE | 2024-12-02 06:58 | PCA ---
THIS ENROLLMENT COORDINATOR CALLED AT 0655 TO SET UP [facility]ER [facility]. NO ONE ANSWERED. A VOICEMAIL WAS LEFT. WAITING TO HEAR BACK
--- NOTE | 2024-12-02 07:25 | PCA ---
THIS NUT STEAMER CALLED [facility] AGA[facility] TO TRY AND INITIATE TRANSFER. NO ONE ANSWERED. LEFT A VOICEMAIL. WAITING TO HEAR BACK.
[2024-12-02] MEDS: CHLORPROMAZINE IV (08:05)
[2024-12-02] MEDS: NORMAL SALINE 0.9% IV (08:05)
--- NOTE | 2024-12-02 08:05 | PCA ---
THIS PHYSICS PROFESSOR CALLED [facility] AT 0800 TO SET UP A [facility]SFER. I WAS ABLE TO SPEAK TO SOMEONE. THERE IS A NURSE, PUJA, WHO IS TO CALL ME BACK.
--- NOTE | 2024-12-02 08:42 | PCA ---
THIS SUPERVISOR FRAMING MILL CALLED [facility] AGA[facility] AT 0840, BECAUSE NURSE PUJA HAS NOT CALLED BACK. A VOICEMAIL WAS LEFT FOR BRENDA AT THE TRANSFER LINE. PT'S MEDICAL WORKUP HAS BEEN FAXED TO THE NUMBER BRENDA GAVE, . AND THERE WAS A CONFIRMATION
--- NOTE | 2024-12-02 09:23 | ED.RN ---
spoke with mariya from md. states that we will see if he can get pt. accepted ed to ed
--- NOTE | 2024-12-02 09:26 | PCA ---
[facility] CALLED BACK AND SPOKE TO RN TAKING CARE OF PATIENT. [facility]. NOW WAITING FOR DOC TO CALL TO ACCEPT
--- NOTE | 2024-12-02 23:33 | CT_ITS ---
PROCEDURE: ABDOMEN/PELVIS W IV CONT ONLY 12/02/2024 REASON FOR EXAM: EPIG/PERIUMB PAIN, N/V TECHNIQUE: ABDOMEN/PELVIS W IV CONT ONLY Coronal and Sagittal reconstruction series were provided. CONTRAST: Isovue 370 VOLUME: 75 mL One or more dose reduction techniques were used (e.g., Automated exposure control, adjustment of the mA and/or kV according to patient size, use of iterative reconstruction technique. RADIATION DOSE SUMMARY: CTDlvol: 32 mGy DLP: 667 mGycm COMPARISON: 09/20/2024 FINDINGS: Under aerated lung bases. Normal heart size. Moderate-sized hiatal hernia. Series 2, image 31, 2.3 x 4 cm right lobe of liver low-density lesion. Also image 31, 2.3 x 2.8 cm low-density right lobe of liver lesion. Series 2, image 18, 1.3 cm enhancing left lobe of liver lesion with central necrosis, stable. These were probably present previously but are more clearly defined on the current exam. Relative atrophy of the posterior right lobe of the liver. Status post cholecystectomy. Portal venous gas has developed. Unremarkable pancreas, spleen,. Multiple bilateral simple renal cysts. Normal left adrenal gland. 2 cm right adrenal nodule redemonstration, favoring adenoma. No hydronephrosis. Decompressed bladder not well evaluated. Normal-sized prostate. Multiple peritoneal cavity lesions redemonstrated. Mid pelvic lesion, series 2, image 98, measuring 2.8 x 3.8 cm, previously about the same. Additional peritoneal mass, series 2, image 84, measures 1.8 x 2.1 cm, previously about the same. There are numerous small omental nodules redemonstrated, no definite interval change. There is small ascites, malignant. No free air. No retroperitoneal or pelvic adenopathy. The stomach is not distended. There are multiple mildly dilated proximal small bowel loops with wall thickening, areas of adjacent mesenteric edema. No definite pneumatosis. Status post right hemicolectomy, with ileocolic anastomosis. Nondistended large bowel. Diverticulosis. Lumbar spine degeneration. Status post ventral wall repair. 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 Abnormal small bowel, possible ischemic, although there is no definite pneumato sis. Suspected portal venous gas raises the suspicion for ischemic bowel. Liver metastatic disease. Peritoneal carcinomatosis and malignant small ascites. Reading Location: [place] [id number]
== END 2024-12-02 15:50 | disposition short-term general hospital (02) ==
PROVIDERS: Emergency Provider Emergency Medicine; Visit Provider Emergency Medicine
DX: R10.13 Epigastric pain (principal); C78.7 Secondary malignant neoplasm of liver and intrahepatic bile duct; C78.6 Secondary malignant neoplasm of retroperitoneum and peritoneum; N18.30 Chronic kidney disease, stage 3 unspecified; Z87.891 Personal history of nicotine dependence; K55.9 Vascular disorder of intestine, unspecified; I12.9 Hypertensive chronic kidney disease with stage 1 through stage 4 chronic kidney disease, or unspecified chronic kidney disease; E78.5 Hyperlipidemia, unspecified; Z86.73 Personal history of transient ischemic attack (TIA), and cerebral infarction without residual deficits; Z79.899 Other long term (current) drug therapy; Z79.82 Long term (current) use of aspirin; F41.8 Other specified anxiety disorders; E03.9 Hypothyroidism, unspecified; Z79.890 Hormone replacement therapy; Z90.49 Acquired absence of other specified parts of digestive tract
CPT/HCPCS: 74177; 80053; 81001; 83605; 83690; 85025; 96361; 96365; 96366; 96375; 99284; Q9967; A4216; J2405

== ENCOUNTER 2024-12-30 14:36 | Emergency (ER) | payer OTHER, SELFPAY ==
[2024-12-30] VITALS (7 sets, daily range): BP systolic 99–132; BP diastolic 68–100; PULSE 50–62; RESP 12–23; TEMP 36.7; O2SAT 97–100; BMI 20.1
--- NOTE | 2024-12-30 15:07 | EKG12_ITS ---
Test Reason : WEAKNESS Blood Pressure : */* mmHG Vent. Rate : 56 BPM Atrial Rate : 56 BPM P-R Int : 222 ms QRS Dur : 92 ms QT Int : 434 ms P-R-T Axes : 5 -47 55 degrees QTcB Int : 418 ms Sinus bradycardia with 1st degree A-V block Left anterior fascicular block Abnormal ECG Confirmed by SUKHWINDER TOM ([id number]), film and video editor DEANNA TESFAYE ([id number]) on 12/31/2024 1:49:32 PM Referred By: Confirmed By: SUKHWINDER TOM
--- NOTE | 2024-12-30 15:07 | EX.ED.DYSGE1 ---
HPI History of Present Illness Chief Complaint: Weakness Informant: patient and spouse/S.O. Narrative Narrative: Presenting concerns of dehydration fatigue and weakness. 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 States that chronic daily diarrhea nonbloody. No urinary symptoms. No nausea or vomiting. He is drinking fluids. States occasional lightheaded symptoms. Chronic with mild lower abdominal pain for the last 18 since his surgery. Cholecystectomy in the past. No chest pains no cough. Additionally reported a month ago transfer up to OR from here due to elevated lactic acidosis and significant abdominal pain. Reported he was treated with antibiotics and sent home. No surgical interventions. Symptoms have subsided. [facility] similar symptoms: [facility] Medical History Dyslipidemia Short bowel syndrome Benign essential HTN Mild concentric left ventricular hypertrophy Grade I diastolic dysfunction Chronic narcotic use Allergic rhinitis History of depression Hypothyroidism Obesity (BMI 30.0-34.9) Chronic renal failure, stage 3 (moderate) Chronic abdominal pain History of malignant carcinoid tumor Bilateral pneumonia History of COVID-19 Anxiety and depression Cancer Former smoker Hypertension Stroke/cerebrovascular accident Multiple metastatic carcinoid tumors Home Medications ?Medication ?Instructions ?Recorded ?Last Taken ?Type amlodipine 10 mg tablet 10 mg PO DAILY Blood pressure 90 09/20/20 12/01/24 Rx days #90 tabs loratadine 10 mg tablet 10 mg PO DAILY ALLERGIES 09/21/21 12/01/24 History aspirin 81 mg tablet 81 mg PO DAILY heart health 09/20/24 12/01/24 History colestipol 1 gram tablet 1 g PO BID cholesterol 09/20/24 12/01/24 History escitalopram oxalate 10 mg tablet 10 mg PO DAILY depression 09/20/24 12/01/24 History levothyroxine 25 mcg tablet 25 mcg PO DAILY thyroid 09/20/24 12/01/24 History (Levo-T) loperamide 2 mg tablet (Diamode) 4 mg PO BID diarrhea 09/20/24 12/01/24 History octreotide acetate 30 mg IM Q28D cancer 09/20/24 11/15/24 History potassium chloride 20 mEq 20 meq PO DAILY supplement 09/20/24 12/01/24 History tablet,extended release atorvastatin 40 mg tablet 40 mg PO QHS cholsterol #30 tabs 09/29/24 12/01/24 Rx hydrocodone-acetaminophen 5-325mg 1 tab PO 0600,1200,1800 7 days #21 09/29/24 12/01/24 Rx 5mg-325mg tabs lisinopril 2.5 mg tablet 2.5 mg PO HS #30 tabs 09/29/24 12/01/24 Rx magnesium chloride 64 mg 64 mg PO DAILY #30 tabs 09/29/24 12/01/24 Rx (magnesium chloride) tablet Allergy/AdvReac Type Severity Reaction Status Date / Time amoxicillin Allergy Rash Verified 12/30/24 14:40 codeine AdvReac Nausea Verified 12/30/24 14:40 Family History Mother Heart disease Myocardial infarction CAD (coronary artery disease) Father COPD (chronic obstructive pulmonary disease) Surgical History H/O resection of small bowel S/P colectomy History of appendectomy History of cholecystectomy Social History household members: spouse Smoking Status: Former smoker how long ago did patient quit smoking: Patient smoked in the only and quit remotely. alcohol intake: never substance use type: does not use ROS ROS ED Constitutional Constitutional ED: Denies chills, fever(s) or sweats ENT ENT ED: Denies sore throat Cardiovascular Cardiovascular: Denies chest pain, leg edema, palpitations or racing heartbeat Respiratory/Chest Respiratory/Chest: Denies cough, dyspnea or dyspnea on exertion Gastrointestinal Gastrointestinal: Reports diarrhea; Denies abdominal pain, nausea or vomiting Genitourinary Genitourinary ED: Denies dysuria, hematuria or urinary frequency Musculoskeletal Musculoskeletal: Denies back pain, extremity pain or neck pain Integumentary Denies rash or wounds Neurologic Neurologic: Reports weakness; Denies headache(s) or paresthesias EXAM Physical Exam Const Vital Signs: 12/30/24 14:37 12/30/24 14:45 12/30/24 14:46 Temperature 98.1 F 98.1 F Temperature Source Oral Oral Pulse Rate 62 57 L Respiratory Rate 16 20 H Respiratory Effort Normal Non-Labored Blood Pressure 125/83 H 132/79 H Blood Pressure Mean 97 96 Pulse Ox 98 98 Oxygen Delivery Method Room Air Room Air 12/30/24 15:40 12/30/24 15:59 12/30/24 16:36 Temperature 98.1 F 98.1 F Temperature Source Oral Oral Pulse Rate 54 L 51 L 50 L Respiratory Rate 23 H 12 12 Respiratory Effort Blood Pressure 110/69 121/68 H 128/100 H Blood Pressure Mean 82 85 109 Pulse Ox 97 100 Oxygen Delivery Method Room Air Room Air 12/30/24 18:00 12/30/24 18:02 Temperature 98.1 F Temperature Source Pulse Rate 55 L 55 L Respiratory Rate 18 18 Respiratory Effort Blood Pressure 99/89 H 99/89 H Blood Pressure Mean 92 92 Pulse Ox 98 98 Oxygen Delivery Method Room Air Positive well nourished and well developed General Appearance ED: well developed and NAD HEENT HEENT Narrative: Mild dry mucosal membranes. normocephalic and atraumatic Eyes General Eye ED: Yes normal appearance of both eyes Neck full ROM Chest Wall Chest: Negative for tenderness Resp normal respiratory effort and normal air movement Effort and Inspection: symmetric chest movement; Negative for respiratory distress Cardio regular rate, regular rhythm and no murmurs Peripheral Pulses: pulses 2+ throughout GI normal to inspection, nondistended, normoactive bowel sounds and non-tender GI Narrative: Negative Holt's or McBurney's tenderness. Palpation: Negative for guarding or rebound tenderness present Extremity normal to inspection General Extremety ED: Negative for edema or tenderness General Extremity: Negative for edema Neuro oriented x3, CN's II-XII intact bilaterally and no sensory deficits noted Neuro Narrative: No focal deficits. 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 My EKG interpretation: Sinus rate of 56 first-degree AV block, no ST or T wave changes. Imaging independently reviewed and interpreted by myself: N/A External documents reviewed: N/A Test considered but not ordered:N/A ED course: Clinical dehydration dry tongue. Nontoxic no focal deficits. Weakness occasional lightheaded symptoms with chronic diarrhea. IV established will give fluids will check labs and urine. EKG ordered. Will reevaluate. Labs stable creatinine 1.80 had initial potassium 5.5 this rechecked down to 5.2. Urine negative. Hemoglobin stable. Patient ambulated with no return of symptoms he will continue oral fluids for hydration. I did give him a dose of Kayexalate. He will follow-up with his doctor for recheck labs. I discussed the patient's history from him being seen last month he had a leukocytosis finding concerning for ischemic colitis. 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 Per patient significant other, this is known for last 10 years. No current treatment. He was treated with antibiotics for infectious colitis. No pain at this time. This is being followed. Return precautions discussed. All questions were answered. Re-evaluation: stable Disposition discussed with patient/family/significant other: Patient and spouse Case discussed with consulting clinician: N/A This note was generated with [employer] dictation software. It may contain incorrect words, spelling, and punctuation that were not noted in checking the note before signing. Lab Data Attestation: I reviewed the patient's lab results. Labs: Laboratory Results - last 24 hr 12/30/24 12/30/24 12/30/24 14:55 15:50 16:48 WBC 7.8 RBC 4.43 L Hgb 13.9 Hct 43.3 MCV 97.7 H MCH 31.4 MCHC 32.1 RDW Std Deviation 48.0 H RDW Coeff of Gretel 13.3 Plt Count 241 MPV 9.8 Immature Gran % (Auto) 0.500 Neut % (Auto) 69.1 Lymph % (Auto) 15.6 L [place] % (Auto) 6.7 Eos % (Auto) 7.1 H Baso % (Auto) 1.0 Absolute Neuts (auto) 5.4 Absolute Lymphs (auto) 1.21 Nucleated RBC % 0 Sodium 139 Potassium 5.5 H 5.2 H Chloride 105 Carbon Dioxide 23.9 Anion Gap 10 BUN 30 H Creatinine 1.88 H Estim Creat Clear Calc 30.33 L Est GFR (MDRD) Non-Af 36 L BUN/Creatinine Ratio 16.0 Glucose 91 Calcium 9.1 Total Bilirubin 0.62 AST 66 H ALT 53 H Alkaline Phosphatase 135 H Total Protein 6.5 Albumin 4.0 Globulin 2.5 Albumin/Globulin Ratio 1.6 Urine Color Yellow Urine Clarity Clear Urine pH 5.0 Ur Specific [place] 1.025 Urine Protein 30 H Urine Glucose (UA) Normal Urine Ketones Negative Urine Occult Blood Negative Urine Nitrite Negative Urine Bilirubin 1 H Urine Urobilinogen Normal Ur Leukocyte Esterase 25 H Urine RBC 0-5 SEEN Urine WBC 0-5 SEEN Ur Squamous Epith Cells 0-5 SEEN Urine Bacteria 0 SEEN Hyaline Casts 0-5 SEEN Fine Granular Casts 0-5 SEEN Urine Mucus 0 SEEN Discharge Plan Triage Chief Complaint: Weakness ED Provider: Wil Hagan Dx/Rx/DC Orders Clinical Impression: Dehydration, CKD (chronic kidney disease), Hyperkalemia, Peritoneal carcinomatosis Instructions: CKD Dc, ED Dehydration (Adult) Prescriptions: No Action amlodipine 10 mg Tablet 10 mg PO DAILY 90 Days Qty: 90 0RF loratadine 10 mg Tablet 10 mg PO DAILY octreotide acetate 30 mg suspension 30 mg IM Q28D Patient Comments: colestipol 1 gram tablet 1 g PO BID Patient Comments: RX SIG STATES 2QD, PT CAN ONLY TOLERATE 1QD loperamide [Diamode] 2 mg tablet 4 mg PO BID levothyroxine [Levo-T] 25 mcg tablet 25 mcg PO DAILY aspirin 81 mg tablet 81 mg PO DAILY escitalopram oxalate 10 mg tablet 10 mg PO DAILY potassium chloride 20 mEq tablet extended release 20 meq PO DAILY hydrocodone-acetaminophen 5-325 mg Tablet 1 tab PO 0600,1200,1800 7 Days Qty: 21 0RF lisinopril 2.5 mg Tablet 2.5 mg PO HS Qty: 30 0RF atorvastatin 40 mg Tablet 40 mg PO QHS Qty: 30 0RF Rx Instructions: Take this medication at bedtime magnesium chloride 64 mg magnesium tablet 64 mg PO DAILY Qty: 30 0RF Primary Care Provider: [facility] Referrals: [facility] [Primary Care Provider] - 1 Week Activity Restrictions/Additional Instructions: Labs stable potassium 5.2. You were given Kayexalate. Your creatinine 1.88 with GFR of 36. Similar to your previous labs. Urine negative for infection. You are given fluids in the ED. Continue oral fluids for hydration. Follow-up with your doctors to recheck your labs. Print Language: Yi Disposition Disposition: Home, Self Care Discharge Date/Time: 12/30/24 18:15
[2024-12-30] MEDS: 0.9% Normal Saline (1000mL) 1,000 ML 1000 ML IV (15:22)
[2024-12-30 15:31] LABS: Hematocrit 43.3 % (40-54); Hemoglobin 13.9 g/dL (13.0-16.5); Immature Granulocytes Count 0.040 X10^3/uL (0.0-0.0); Mean Corp Hgb Conc 32.1 g/dL (32-36); Mean Corpuscular Volume 97.7 fL (80-94); Mean Platelet Vol. 9.8 fl (6.2-12.0); NRBC Flagged by Analyzer 0 % (0-5); Platelet Count 241 K/mm3 (150-450); RBC Distribution Width CV 13.3 % (11.6-14.6); RBC Distribution Width SD 48.0 fl (35.1-43.9); Red Blood Count 4.43 M/mm3 (4.6-6.2); White Blood Count 7.8 K/mm3 (4.4-11.0)
[2024-12-30 15:48] LABS: AST(SGOT) 66 U/L (<=37); Alanine Aminotransfer ALT/SGPT 53 U/L (<=46); Albumin, Serum 4.0 g/dL (3.4-4.8); Alkaline Phosphatase 135 U/L (40-129); Anion Gap 10 (5-15); BUN 30 mg/dL (4-19); BUN/Creat Ratio 16.0 RATIO (10-20); Calcium,Total 9.1 mg/dL (7.6-11.0); Carbon Dioxide 23.9 mmol/L (21.0-32.0); Chloride 105 mmol/L (98-108); Estimated Creatinine Clearance 30.33 ml/min (50-250); Globulin 2.5 g/dL (2.2-4.2); Glucose 91 mg/dL (70-99); Potassium 5.5 mmol/L (3.3-5.1)
[2024-12-30 15:56] LABS: Mucous, Urine 0 SEEN /hpf (<or=2+)
[2024-12-30 16:09] LABS: Color, Urine Yellow (Yellow); Glucose, Dipstick Normal (Normal); Ketone-Dipstick Negative (Negative); Leukocyte Esterase-Dipstick 25 /ul (Negative); Nitrite-Dipstick Negative (Negative); Occult Blood-Urine Negative /ul (Negative); Protein-Dipstick 30 mg/dl (Negative); Specific Gravity, Urine 1.025 (1.002-1.030)
[2024-12-30 16:13] LABS: Urine Bilirubin Dipstick 1 mg/dL (Negative)
[2024-12-30 16:39] LABS: Squamous Epithelial Cells - UA 0-5 SEEN /hpf (0-5)
[2024-12-30 16:40] LABS: Red Blood Cells-Urine 0-5 SEEN /hpf (0-5)
[2024-12-30 16:42] LABS: Fine Granular Cast- Urine 0-5 SEEN /lpf (0-5)
[2024-12-30 17:13] LABS: Potassium 5.2 mmol/L (3.3-5.1)
== END 2024-12-30 18:15 | disposition home or self-care (01) ==
PROVIDERS: Emergency Provider Emergency Medicine; Visit Provider Emergency Medicine
DX: A09 Infectious gastroenteritis and colitis, unspecified (principal); C78.6 Secondary malignant neoplasm of retroperitoneum and peritoneum; N18.30 Chronic kidney disease, stage 3 unspecified; E86.0 Dehydration; I12.9 Hypertensive chronic kidney disease with stage 1 through stage 4 chronic kidney disease, or unspecified chronic kidney disease; E87.5 Hyperkalemia; Z87.891 Personal history of nicotine dependence; I44.0 Atrioventricular block, first degree
CPT/HCPCS: 80053; 81001; 84132; 85025; 93005; 96360; 96361; 99283; A4216